=== PATIENT | male | born 1945 | race Caucasian/White ===

== ENCOUNTER 2016-12-10 18:33 | Emergency (ER) | payer MEDICARE ==
[~2016-12-10 18:33] MED LIST: /ADVA50050; /AMIO20TA; /ATOR40TA; /BISO10TA; /FENO14TA PO; /TAMS4CA; /TAMS4CA PO; /TIOT18INH; /VERA40TA; /WARF3TA; ACET50TA PO; ACET65TA; ACETAMINOPHEN; ACTO30TA; ADV500INH INH; ALB2.5NEB INH; ALBU83IN; ALBUTEROL; ALLE25CA; ALLO100T PO; ALLOPURINOL PO; AMAR1TAB PO; AMIO400T; ASPI1TAB PO; ASPI81TA PO; ASPI81TA83; ATRO0.06; BABY81CH; BISAC5TA PO; BISO10TA2; BISO5TAB54 PO; CARD2TAB; CEFT250T; CEFT500T PO; CHAN0.5P; COLA100C2; COLA50CA3 PO; COMBAER6 INH; COMBIN INH; COMBIVENT; COMBIVENT INH; COMBVENT; COUMADIN; CRES5TAB; CRES5TAB PO; Crestor PO; DIGO0.126; DRIS50002 PO; DULC10SU9 PR; DUONSOL; FERR325T; FERROUS GLUCONATE; FISH1000 PO; FURO1TAB15 PO; FURO20TA PO; GLUC1000; HUMUINJ; INSUH10VL SC; INSUHUMDS SC; INSULANT; INSULANT SC; INSULIN ASPART; IPRA2IN INH; JANTOVEN; K-TA10TA; KEFL500C7 PO; LANTUS; LASI20TA; LASI20TA PO; LASI40TA; LASI40TA PO; LASI80TA; LIDODERM 5% PATCH; LIDODERM PATCH; LISI10TA4; LISI10TA4 PO; LISI5TAB; LISI5TAB PO; LOPR50TA; LORTTAB5 PO; LOVA1CAP16 PO; Lantus Insulin SC; MAALSUS; MAG-TAB; METF500T4; MIRA255PW PO; MIRA33504 PO; MOM30SS PO; NICO21DI4; NICOTINE PATCH; NOVOLOG INSULIN SC; NOVOLOG100 MG/ML; OMEGA FISH OIL PO; OXYCODONE; PERC5TAB8; PERCOCET PO; PLAV75TA2; POTA20TA2; PRED10TA2; PRED10TA2 PO; PRED1TA; PRED20TA; PRED5TAB; PREDPOW10; PRIL20CA; PRIL20CA PO; PRIL20CA9 PO; PRIL40CA; PROCTOFOAM PR; PROS5TAB PO; Proscar PO; REST15CA; REST15CA PO; ROSU10TA PO; SENO8.6T9 PO; SIMV20TA2; Spiriva INH; TAMS0.4C2 PO; TEMA15CA2 PO; TIOT18INH INH; TRAM50TA2; TRAV04OPD OU; TRIC145T PO; Tylenol PO; VARE1TA; VICO5TAB; XANA0.25; XANA0.25 PO; ZEBE5TAB; ZEBE5TAB PO; ZEBETA; ZITH250T; ZOCO20TA; ZOLO50TA; ZOLO50TA PO; ZOLOFT; [UNRECOGNIZED DRUG - OTHER]
[2016-12-10] MEDS ORDERED: IPRATROPIUM 0.5MG/ALBUTEROL 2.5MG INH SOL UD 3ML (DUONEB)(J7620) As Ordered ONE ×3 (18:59→20:46)
[2016-12-10 19:04] LABS: BASO % 0.8 % (0.0-1.0); EOS # 0.1 K/mm3 (0.0-0.50); EOS % 1.1 % (0.0-3.0); LARGE UNSTAINED CELL # 0.1 K/mm3 (0.0-0.4); LARGE UNSTAINED CELL % 1.6 % (0.0-4.0); LYMPH # 0.9 K/mm3 (1.5-4.5); LYMPH % 11.8 % (24.0-44.0); MEAN CORPUSCULAR HEMOGLOBIN 29.2 pg (27.0-33.0); MEAN CORPUSCULAR HGB CONC 32.5 g/dl (32.0-36.5); MONO # 0.4 K/mm3 (0.0-0.8); MONO % 5.7 % (0.0-5.0); NEUTROPHILS # 5.1 K/mm3 (1.8-7.7); NEUTROPHILS % 78.9 % (36.0-66.0); PLATELET COUNT, AUTOMATED 279 k/mm3 (150-450); RED CELL DISTRIBUTION WIDTH 16.6 % (11.5-14.5); WHITE BLOOD COUNT 6.5 K/mm3 (4.0-10.0)
[2016-12-10] MEDS ORDERED: methylPREDNISolone INJ 125 MG/2 ML VIAL (J2930) As Ordered ONE (19:04)
--- NOTE | 2016-12-10 19:15 | REP ---
Portable chest x-ray: Single view: History: Shortness of breath. Comparison study 08/12/2016. Findings: There is linear pleuroparenchymal fibrosis again seen in the left midlung zone. Prior sternotomy wires are noted. The aorta is calcific as before. The heart is not enlarged. There is chronic blunting of the left lateral pleural angle. Interstitial markings are diffusely somewhat prominent unchanged. No acute infiltrate is seen. 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 Prior sternotomy. Diffusely somewhat prominent but stable pulmonary interstitial markings. No acute infiltrate. Signed by Ervin Lucio MD 12/10/2016 07:49 P
[2016-12-10] MEDS ORDERED: FUROSEMIDE 40 MG/4 ML VIAL (J1940) As Ordered ONE (19:25)
[2016-12-10 19:29] LABS: ANION GAP 10 MEQ/L (8-16); BLOOD UREA NITROGEN 36 MG/DL (7-18); CALCIUM LEVEL 9.2 MG/DL (8.8-10.2); CARBON DIOXIDE LEVEL 25 MEQ/L (21-32); CHLORIDE LEVEL 107 MEQ/L (98-107); CREATININE FOR GFR 1.59 MG/DL (0.70-1.30); GLOMERULAR FILTRATION RATE 45.7 (>42); GLUCOSE, FASTING 157 MG/DL (83-110); SODIUM LEVEL 142 MEQ/L (136-145)
--- NOTE | 2016-12-10 23:15 | EDDOCDS ---
Physician Documentation [facility] Name: Javier Cruz Age: 71 yrs Sex: Male : 1945 Arrival Date: 12/10/2016 Time: 18:33 Bed 6 Private MD: ZOEY HUTCHINSON Disposition: 12/10 22:58 Critical Care: Critical care not applicable. pc Disposition: 12/10/16 23:00 Discharged to Home/Self Care. Impression: Acute on chronic systolic (congestive) heart failure - resolved, Chronic obstructive pulmonary disease with (acute) exacerbation - resolved. - Condition is Stable. - Discharge Instructions: Chronic Obstructive Pulmonary Disease, Heart Failure. - Medication Reconciliation, Local Pharmacy Hours form. - Follow up: ZOEY HUTCHINSON; When: Tomorrow; Reason: Continuance of care. - Problem is an acute exacerbation. - Symptoms are resolved. HPI: 19:22 This 71 yrs old Male presents to ER via Wheelchair with complaints of pc Breathing Difficulty. 19:22 The history is obtained from the patient. The patient presents with shortness of pc breath, with a prior history of COPD, congestive heart failure. The symptoms began gradually 3 weeks ago, and became worse today. He has been getting more SOBOE for 3 weeks and developed chest pain at 9am this morning while walking and developed "real bad breathing". He called his PCP and made an appointment for tomorrow. He felt he couldn't wait so came to the tonight. He denies any chest pain since this morning but feels "winded" easily.He says his FSBS have running 350+ for a week, when they had normally been in the 140's. His insulin regimen was changed 3 months ago due to excessively tight control, with an A1C of 5.8. He now only takes insulin when his level is >250. At their worst, the symptoms were moderate. In the emergency department, the symptoms are mild. The patient has experienced similar episodes in the past, multiple times. He thinks he has put on 4 pounds in the past 3-4 weeks. His weight is 2.5kg more today than his clinic visit 6 weeks ago, per his EMR. Historical: - Allergies: SULFA (SULFONAMIDES); - Home Meds: 1. fenofibrate 160 mg oral tab 1 tab once daily 2. Xanax 0.25 mg Oral tab 1 tab 3 times per day 3. albuterol sulfate 2.5 mg /3 mL (0.083 %) Inhl nebu 3 mL 3 times per day 4. Atrovent 18 mcg/actuation Inhl aero four times a day 5. Fish Oil 1,000 mg Oral cap 2 cap daily 6. docusate sodium 100 mg Oral cap 1 cap 2 times per day 7. latanoprost 0.005 % ophthalmic drop 1 drop once daily 8. Flomax 0.4 mg Oral cp24 1 cap once daily 9. Advair Diskus 500-50 mcg/dose Inhl dsdv 1 puff 2 times per day 10. Combivent 18-103 mcg/actuation Inhl aero 2 puffs 4 times per day 11. Lasix 40 mg Oral tab 1 tab once daily 12. gentamicin 0.1 % Topical crea 3 times per day 13. Humalog 100 unit/mL Sub-Q soln 6 unit sliding scale 14. Zebeta 5 mg oral tab 1 tab once daily 15. omeprazole 20 mg oral cpDR 1 cap once daily 16. Zoloft 50 mg Oral tab 1 tab once daily 17. Lantus 100 unit/mL Sub-Q soln 27 unit daily 18. lisinopril 10 mg Oral tab 1 tab twice a day 19. Proscar 5 mg Oral tab 1 tab once daily 20. Crestor 10 mg Oral tab 1 tab once daily 21. Drisdol 50,000 unit Oral cap 1 cap once daily 22. Tylenol 325 mg Oral tab 2 tabs every 4-6 hours - PMHx: Anxiety; BPH; COPD; Depression; Diabetes - IDDM: uncontrolled; ESRD 3; GERD; Hypercholesterolemia; Hypertension; PVD; - PSHx: 5 vessel CABG 2008; fem/pop bypass right leg; - The history from nurses notes was reviewed: and I agree with what is documented. - Social history: Smoking status: Patient states former smoker of tobacco. No barriers to communication noted, The patient speaks fluent Azeri, Speaks appropriately for age. - Family history: Not pertinent, No immediate family members are acutely ill. - : The pt / caregiver states he / she is not on anticoagulants. Home medication list is obtained from the patient. - Hospitalizations: : No recent hospitalization is reported. - Exposure Risk Screening:: None identified. - Immunization history:: All immunizations up-to-date. - Social history:: the patient is a former smoker, the patient does not drink alcohol. ROS: 19:22 All systems are negative except as listed. The gastrointestinal and genitourinary pc components are also addressed in the HPI. Exam: 19:22 General Appearance: no acute distress, alert. pc 19:22 EENT: normal eye inspection, ears, nose and throat normal, pharynx normal, mucous membranes moist 19:22 Neck: normal inspection. 19:22 Respiratory: no respiratory distress, no pleuritic chest pain, speaks in full sentences, auscultation reveals rhonchi, rales, diffusely. 19:22 Cardiovascular: normal heart rate, normal rhythm, no jugular venous distension appreciated, no murmurs, no gallop, no friction rub, peripheral pulses full and equal bilaterally. 19:22 Abdomen: non-tender, non-distended, no organomegaly, no ascites. 19:22 Skin: normal color, warm, dry. 19:22 Extremities: non-tender, normal range of motion of all joints, no pedal edema. 19:22 Neuro: alert, oriented to person, place and time, cranial nerves normal as tested, no motor deficits, no sensory deficits. 19:22 Psych: normal mood. Vital Signs: 18:35 BP 192 / 89; Pulse 94; Resp 16 S; Pulse Ox 96% on R/A; Weight 70.76 kg / 156 lbs (R); gr2 Height 5 ft. 7 in. (170.18 cm) (R); Pain 3/10; 18:41 Temp 97.5(O); ck1 19:16 Weight 73.94 kg / 163.01 lbs (M); kb5 19:26 BP 166 / 73 (auto/); mlc 19:26 Pulse 62 MON; Pulse Ox 94% ; mlc 19:38 Pulse 62 MON; Pulse Ox 97% ; mlc 19:41 BP 182 / 79 (auto/); mlc 19:42 Pulse 66 MON; Pulse Ox 93% ; mlc 19:56 BP 177 / 77 (auto/); mlc 19:57 Pulse 60 MON; Pulse Ox 97% ; mlc 20:11 BP 171 / 70 (auto/); mlc 20:12 Pulse 72 MON; Pulse Ox 96% ; mlc 20:26 BP 173 / 77 (auto/); mlc 20:27 Pulse 80 MON; Pulse Ox 95% ; mlc 20:41 BP 175 / 73 (auto/); mlc 20:42 Pulse 76 MON; Pulse Ox 96% ; mlc 20:56 BP 190 / 77 (auto/); mlc 20:57 Pulse 66 MON; Pulse Ox 94% ; mlc 21:11 BP 170 / 74 (auto/); mlc 21:12 Pulse 68 MON; Pulse Ox 94% ; mlc 21:26 BP 175 / 74 (auto/); mlc 21:27 Pulse 74 MON; Pulse Ox 93% ; mlc 21:41 BP 180 / 74 (auto/); mlc 21:42 Pulse 78 MON; Pulse Ox 93% ; mlc 21:56 BP 181 / 72 (auto/); mlc 21:57 Pulse 78 MON; Pulse Ox 92% ; mlc 22:07 Pulse 78 MON; Pulse Ox 92% ; mlc 22:12 BP 183 / 78 (auto/); mlc 22:26 BP 158 / 85 (auto/); mlc 22:26 Pulse 88 MON; Pulse Ox 90% ; mlc 22:41 BP 168 / 72 (auto/); mlc 22:42 Pulse 84 MON; Pulse Ox 91% ; mlc 23:13 BP 166 / 71; Pulse 82; Resp 18; Temp 97.8; Pulse Ox 96% ; Pain 0/10; mlc 19:16 Body Mass Index 25.53 (73.94 kg, 170.18 cm) kb5 18:35 TEMP NEEDS TO BE TAKEN gr2 MDM: 18:38 -Blood Culture (Adults Only), peripheral from different site, or from device/port/PICC fg etc. if present ordered. 18:38 Call Respiratory ordered. fg 18:38 Band Singer/Pulse Ox/q 15 min VS ordered. fg 18:38 IV Saline Lock ordered. fg 18:38 Oxygen at 4L/Min NC or Home dosage ordered. fg 18:38 Rhythm Strip to chart ordered. fg 18:39 -Blood Culture Ordered. EDMS 18:39 B-Type Natiuretic Peptide Ordered. EDMS 18:39 Basic Metabolic Profile Ordered. EDMS 18:39 CBC with Diff Ordered. EDMS 18:39 Chest, 1 View Ordered. EDMS 18:40 ECG WITH READING ER PHYS+CARDIAG ordered. EDMS 18:40 ECG WITH READING ER PHYS+CARDIAG ordered. EDMS 18:40 -Blood Culture (Adults Only), peripheral from different site, or from device/port/PICC lbd etc. if present complete. 18:41 Call Respiratory complete. lbd 18:44 BLOOD CULTURES Ordered. EDMS 18:57 Solu-MEDROL 125 mg IVP once ordered. fg 18:57 Albuterol-Ipratropium 3 ml Inhalation once ordered. fg 19:05 Weigh Pt on scale, in Kg (Do Not Use Reported Weight) ordered. pc 19:10 CARDIAC MARKER PANEL Ordered. EDMS 19:22 Furosemide 40 mg IVP once ordered. pc 19:22 Intake and Output Hourly ordered. pc 19:22 Differential diagnosis: CHF, Chronic Obstructive Pulmonary Disease Unstable Angina. pc Plan: labs, EKG, CXR, meds. 19:31 Test interpretation: EKG. pc 20:08 B-Type Natiuretic Peptide Reviewed. pc 20:08 Basic Metabolic Profile Reviewed. pc 20:08 CBC with Diff Reviewed. pc 20:08 CARDIAC MARKER PANEL Reviewed. pc 20:08 Albuterol-Ipratropium 1 neb Nebulizer every 20 minutes x3 ordered. pc 20:08 Call Respiratory ordered. pc 20:09 Call Respiratory complete. mlc 21:02 Financial registration complete. zo 21:09 [facility] Payment Agreement was scanned into [employer]! and attached to record. zo 21:49 Ambulate Patient wt Pulse Oximetry ordered. pc 22:58 Data reviewed: old medical records, vital signs, nurses notes, EKG(s), lab test pc results, all radiology studies and available results. Test interpretation: LAB - all labs as ordered have been reviewed, interpreted and considered in the overall management of the clinical presentation; X-RAY - interpreted by Radiologist and personally reviewed, 1 view chest chronic changes. The patient has been re-examined and re-evaluated. The patient's symptoms have markedly improved after treatment, He is laying flat, requesting discharge home. He has diuresed over a liter, his PO is 93% on RA at rest and stay above 89% while ambulating. Disposition: The historical points, examination findings, and any diagnostic results supporting the provided diagnosis, were discussed with the patient or legal guardian. The need for outpatient follow up with the provider listed on their discharge instructions was discussed. They were encouraged to return to [facility], or the nearest ED, if symptoms worsen/persist, or for any other questions/concerns. EC:31 Rate is 64 beats/min. Rhythm is regular, Normal Sinus Rhythm. QRS Lysite is Normal. IA pc interval is prolonged at 303 msec. QRS interval is normal. QT interval is normal. No Q waves. T waves are Normal. No ST changes noted. Clinical impression: Normal Sinus Rhythm and 1st degree heart block. No change from previous ECG in July,. Administered Medications: 19:01 Drug: Albuterol-Ipratropium 3 ml [ipratropium-albuterol 0.5 mg-3 mg(2.5 mg base)/3 mL ac1 nebulization soln (3 mL)] Route: Inhalation; 19:04 Follow up: bs-bilat end exp whz ac1 19:11 Drug: Solu-MEDROL 125 mg [Solu-Medrol 500 mg intravenous solution (125 mg)] Route: IVP; mlc Site: left hand; 19:39 Drug: Furosemide 40 mg [furosemide 10 mg/mL injection solution (4 mL)] Route: IVP; mlc Site: left hand; 20:14 Drug: Albuterol-Ipratropium 1 neb [ipratropium-albuterol 0.5 mg-3 mg(2.5 mg base)/3 mL jh6 nebulization soln (1 neb)] Route: Nebulizer; 20:36 Drug: Albuterol-Ipratropium 1 neb [ipratropium-albuterol 0.5 mg-3 mg(2.5 mg base)/3 mL jh6 nebulization soln (1 neb)] Route: Nebulizer; 20:56 Drug: Albuterol-Ipratropium 1 neb [ipratropium-albuterol 0.5 mg-3 mg(2.5 mg base)/3 mL jh6 nebulization soln (1 neb)] Route: Nebulizer; Signatures: Dispatcher [employer] EDMS Wyatt Grubbs MD MD pc Daly, Linda, Neonatologist Unit lbd Josh Benites Joshua, RN RN jmb Booth, Mandy, RN RN mlc Gill, Frances, MD MD fg Cowles, Amy RT 1 Oneil Conner 6 The chart was reviewed and I authenticate all verbal orders and agree with the evaluation and treatment provided.Corrections: (The following items were deleted from the chart) 19:10 19:05 CARDIAC INJURY PROFILE+LAB ordered. EDMS EDMS 19:10 19:05 TROPONIN+LAB ordered. EDMS EDMS Attachments: 21:09 [facility] Payment Agreement zo [email or web address]
--- NOTE | 2016-12-10 23:15 | EDDOCDS ---
Nurse's Notes [facility] Name: Javier Cruz Age: 71 yrs Sex: Male : 1945 Arrival Date: 12/10/2016 Time: 18:33 Bed 6 Private MD: ZOEY HUTCHINSON Diagnosis: Acute on chronic systolic (congestive) heart failure-resolved;Chronic obstructive pulmonary disease with (acute) exacerbation-resolved Presentation: 12/10 18:37 Presenting complaint: Patient states: Patient reports inability to breath. Symptoms jmb present for 3-4 weeks but worse tonight. Adult Sepsis Screening: The patient does not have new or worsening altered mentation. Patient's respiratory rate is less than 22. Systolic blood pressure is greater than 100. Patient has a qSOFA score of 0- Negative Sepsis Screen. Suicide/Homicide risk assessment- the patient denies having any suicidal and/or homicidal ideations and does not present with any other emotional, behavioral or mental health complaints. 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 Transition of care: patient was not received from another setting of care. 18:37 Acuity: TAMEKA Level 3 jmb 18:37 Method Of Arrival: Wheelchair b Triage Assessment: 18:45 General: Appears uncomfortable, Behavior is appropriate for age, cooperative. Pain: jmb Denies pain. Neurological: Level of Consciousness is awake, alert, obeys commands, Oriented to person, place, time, Speech is normal, Facial symmetry appears normal. Respiratory: Onset: The symptoms/episode began/occurred gradually, Airway is patent Respiratory effort is even, labored, Respiratory pattern is regular. GI: No deficits noted. Derm: Skin is pink, warm & dry. Musculoskeletal: Range of motion intact in all extremities. Historical: - Allergies: SULFA (SULFONAMIDES); - Home Meds: 1. fenofibrate 160 mg oral tab 1 tab once daily 2. Xanax 0.25 mg Oral tab 1 tab 3 times per day 3. albuterol sulfate 2.5 mg /3 mL (0.083 %) Inhl nebu 3 mL 3 times per day 4. Atrovent 18 mcg/actuation Inhl aero four times a day 5. Fish Oil 1,000 mg Oral cap 2 cap daily 6. docusate sodium 100 mg Oral cap 1 cap 2 times per day 7. latanoprost 0.005 % ophthalmic drop 1 drop once daily 8. Flomax 0.4 mg Oral cp24 1 cap once daily 9. Advair Diskus 500-50 mcg/dose Inhl dsdv 1 puff 2 times per day 10. Combivent 18-103 mcg/actuation Inhl aero 2 puffs 4 times per day 11. Lasix 40 mg Oral tab 1 tab once daily 12. gentamicin 0.1 % Topical crea 3 times per day 13. Humalog 100 unit/mL Sub-Q soln 6 unit sliding scale 14. Zebeta 5 mg oral tab 1 tab once daily 15. omeprazole 20 mg oral cpDR 1 cap once daily 16. Zoloft 50 mg Oral tab 1 tab once daily 17. Lantus 100 unit/mL Sub-Q soln 27 unit daily 18. lisinopril 10 mg Oral tab 1 tab twice a day 19. Proscar 5 mg Oral tab 1 tab once daily 20. Crestor 10 mg Oral tab 1 tab once daily 21. Drisdol 50,000 unit Oral cap 1 cap once daily 22. Tylenol 325 mg Oral tab 2 tabs every 4-6 hours - PMHx: Anxiety; BPH; COPD; Depression; Diabetes - IDDM: uncontrolled; ESRD 3; GERD; Hypercholesterolemia; Hypertension; PVD; - PSHx: 5 vessel CABG 2008; fem/pop bypass right leg; - The history from nurses notes was reviewed: and I agree with what is documented. - Social history: Smoking status: Patient states former smoker of tobacco. No barriers to communication noted, The patient speaks fluent Luxembourgish, Speaks appropriately for age. - Family history: Not pertinent, No immediate family members are acutely ill. - : The pt / caregiver states he / she is not on anticoagulants. Home medication list is obtained from the patient. - Hospitalizations: : No recent hospitalization is reported. - Exposure Risk Screening:: None identified. - Immunization history:: All immunizations up-to-date. - Social history:: the patient is a former smoker, the patient does not drink alcohol. Screenin:55 Screening information is obtained from the patient. Fall risk: At risk due to weakness. ck1 The following interventions are performed due to a positive Fall Risk Screen: Fall Risk is added to Special Handling on the patient Summary Screen. A Fall Risk Bracelet was applied to the patient. Side Rails are placed in the up position. A Call Fair is given with instruction to call for help when getting out of bed. Fall Alert bracelet is placed on the patient. Abuse/DV Screen: The patient / caregiver reports he/she is: not in a situation that causes fear, pain or injury. Nutritional screening: No deficits noted. home support is adequate. 23:13 Assistance ADL's: requires no assistance with activities of daily living. Advance mlc Directives: There is no active DNR order. Assessment: 18:55 General: Appears ill, Behavior is appropriate for age, cooperative. Pain: Denies pain. ck1 Cardiovascular: Chest pain is denied. Respiratory: Respiratory effort is labored, Respiratory pattern is symmetrical, Breath sounds are diminished bilaterally. Derm: Skin is intact, Skin is pink, warm & dry. 19:12 General: Appears in no apparent distress, comfortable, Behavior is cooperative, mlc pleasant. Pain: Denies pain. Neurological: Level of Consciousness is awake, alert, obeys commands, Oriented to person, place, time. Cardiovascular: Heart tones S1 S2 present Rhythm is sinus rhythm No ectopy. Chest pain is denied. Respiratory: Airway is patent Respiratory effort is even, labored, Respiratory pattern is regular, Breath sounds with wheezes expiratory bilaterally. Derm: Skin is pink, warm & dry. 19:39 Reassessment: Patient appears in no apparent distress at this time. pt medicated per mlc order. 21:08 Reassessment: Patient appears in no apparent distress at this time. Patient denies pain mlc at this time. pt resting comfortably in bed, resp easy/unlabored. . 21:46 Reassessment: Patient appears in no apparent distress at this time. Patient denies pain mlc at this time. pt given water per Dr. Grubbs. resp easy/unlabored. . 22:13 Reassessment: pt ambulated down bains, tolerated well. pt denies feeling SOB. SPO2 mlc remained about 88%. pulse increased to 95. 23:12 General: Appears in no apparent distress, comfortable, Behavior is cooperative. Pain: mlc Denies pain. Neurological: Level of Consciousness is awake, alert, Oriented to person, place, time. Respiratory: Airway is patent Respiratory effort is even, unlabored, Respiratory pattern is regular. Vital Signs: 18:35 BP 192 / 89; Pulse 94; Resp 16 S; Pulse Ox 96% on R/A; Weight 70.76 kg (R); Height 5 gr2 ft. 7 in. (170.18 cm) (R); Pain 3/10; 18:41 Temp 97.5(O); ck1 19:16 Weight 73.94 kg (M); kb5 19:26 BP 166 / 73 (auto/); mlc 19:26 Pulse 62 MON; Pulse Ox 94% ; mlc 19:38 Pulse 62 MON; Pulse Ox 97% ; mlc 19:41 BP 182 / 79 (auto/); mlc 19:42 Pulse 66 MON; Pulse Ox 93% ; mlc 19:56 BP 177 / 77 (auto/); mlc 19:57 Pulse 60 MON; Pulse Ox 97% ; mlc 20:11 BP 171 / 70 (auto/); mlc 20:12 Pulse 72 MON; Pulse Ox 96% ; mlc 20:26 BP 173 / 77 (auto/); mlc 20:27 Pulse 80 MON; Pulse Ox 95% ; mlc 20:41 BP 175 / 73 (auto/); mlc 20:42 Pulse 76 MON; Pulse Ox 96% ; mlc 20:56 BP 190 / 77 (auto/); mlc 20:57 Pulse 66 MON; Pulse Ox 94% ; mlc 21:11 BP 170 / 74 (auto/); mlc 21:12 Pulse 68 MON; Pulse Ox 94% ; mlc 21:26 BP 175 / 74 (auto/); mlc 21:27 Pulse 74 MON; Pulse Ox 93% ; mlc 21:41 BP 180 / 74 (auto/); mlc 21:42 Pulse 78 MON; Pulse Ox 93% ; mlc 21:56 BP 181 / 72 (auto/); mlc 21:57 Pulse 78 MON; Pulse Ox 92% ; mlc 22:07 Pulse 78 MON; Pulse Ox 92% ; mlc 22:12 BP 183 / 78 (auto/); mlc 22:26 BP 158 / 85 (auto/); mlc 22:26 Pulse 88 MON; Pulse Ox 90% ; mlc 22:41 BP 168 / 72 (auto/); mlc 22:42 Pulse 84 MON; Pulse Ox 91% ; mlc 23:13 BP 166 / 71; Pulse 82; Resp 18; Temp 97.8; Pulse Ox 96% ; Pain 0/10; mlc 19:16 Body Mass Index 25.53 (73.94 kg, 170.18 cm) kb5 18:35 TEMP NEEDS TO BE TAKEN gr2 Vitals: 18:35 Log In Time: December 10, 2016 at 18:35. RN notified that patient meets Red Flag gr2 criteria. ED Course: 18:34 Patient visited by Andrew Guillen. gr2 18:34 Patient moved to Waiting gr2 18:35 ZOEY HUTCHINSON is Private Physician. gr2 18:36 Patient visited by Andrew Guillen. gr2 18:36 Patient moved to Pre RCE gr2 18:36 Patient moved to 6 rs6 18:38 Triage Initiated jmb 18:46 Pt greeted and oriented to ED. Patient advised of names of staff involved in care, rs6 location of call fair, wait times and NPO status. Accompanied by Family Member, Patient has correct armband on for positive identification. Placed in gown. Bed in low position. Call light in reach. Side rails up X 1. insurance risk surveyor on. Pulse ox on. NIBP on. 18:46 EKG done. (by ED staff). Reviewed by Lali Simental MD. rs6 18:47 Patient visited by Rose Brown PCA. rs6 18:47 B-Type Natiuretic Peptide Sent. rs6 18:54 Inserted saline lock: 20 gauge in left hand and blood collected. The patient tolerated ck1 the procedure well. 19:00 CBC with Diff Sent. mlc 19:00 Basic Metabolic Profile Sent. mlc 19:00 -Blood Culture Sent. mlc 19:01 Leslie Lorenzo,RN is Primary Nurse. mlc 19:02 Wyatt Grubbs MD is Attending Physician. pc 19:11 CARDIAC MARKER PANEL Sent. mlc 19:12 The patient / caregiver is instructed regarding the plan of care and ED course. mlc 19:12 O2 via nasal cannula \T\ 2L/min. mlc 19:13 Patient visited by Wyatt Grubbs MD. pc 19:13 Patient visited by Leslie Lorenzo,LUIS MIGUEL. mlc 19:39 BLOOD CULTURES Sent. mlc 19:40 Patient visited by Leslie Lorenzo,LUIS MIGUEL. mlc 20:12 Chest, 1 View Returned. EDMS 20:34 Patient visited by Abundio Guan, SIOBHAN. kb5 21:09 Patient visited by Leslie Lorenzo,RN. mlc 21:09 [facility] Payment Agreement was scanned into enavu and attached to record. zo 21:23 Patient visited by Abundio Guan PCA. kb5 21:46 Patient visited by Leslie Lorenzo,LUIS MIGUEL. mlc 22:14 Patient visited by Leslie Lorenzo RN. mlc 23:00 ZOEY HUTCHINSON is Referral Physician. pc 23:05 Patient visited by Abundio Guan PCA. kb5 23:13 Discontinued IV lock intact, bleeding controlled, pressure dressing applied, No mlc redness/swelling at site. No procedures done that require assistance. Administered Medications: 19:01 Drug: Albuterol-Ipratropium 3 ml [ipratropium-albuterol 0.5 mg-3 mg(2.5 mg base)/3 mL ac1 nebulization soln (3 mL)] Route: Inhalation; 19:04 Follow up: bs-bilat end exp whz ac1 19:11 Drug: Solu-MEDROL 125 mg [Solu-Medrol 500 mg intravenous solution (125 mg)] Route: IVP; mlc Site: left hand; 19:39 Drug: Furosemide 40 mg [furosemide 10 mg/mL injection solution (4 mL)] Route: IVP; mlc Site: left hand; 20:14 Drug: Albuterol-Ipratropium 1 neb [ipratropium-albuterol 0.5 mg-3 mg(2.5 mg base)/3 mL jh6 nebulization soln (1 neb)] Route: Nebulizer; 20:36 Drug: Albuterol-Ipratropium 1 neb [ipratropium-albuterol 0.5 mg-3 mg(2.5 mg base)/3 mL jh6 nebulization soln (1 neb)] Route: Nebulizer; 20:56 Drug: Albuterol-Ipratropium 1 neb [ipratropium-albuterol 0.5 mg-3 mg(2.5 mg base)/3 mL jh6 nebulization soln (1 neb)] Route: Nebulizer; Intake: Output: 21:08 Urine: 650.00ml (Voided); Total: 650.00ml. mlc 21:46 Urine: 375.00ml (Voided); Total: 1025.00ml. [facility] RT: 19:02 Initial Med Neb Given as ordered Patient was instructed and evaluated on procedure. ac1 Respiratory: Breath sounds with wheezes bilaterally. at expiration. 20:14 Subsequent Med Neb Given as ordered Patient was reinforced on procedure Patient jh6 tolerated procedure well without adverse effect. Respiratory: Airway is patent Respiratory effort is even, unlabored, Respiratory pattern is regular symmetrical, Breath sounds with rhonchi in right upper lobe, left upper lobe, right middle lobe, left lower lobe and right lower lobe Breath sounds with wheezes in right upper lobe, left upper lobe, right middle lobe, left lower lobe and right lower lobe at expiration Reports some shortness of breath. 20:25 Respiratory: Airway is patent Respiratory effort is even, unlabored, Respiratory 6 pattern is regular symmetrical, Breath sounds with wheezes in right upper lobe, left upper lobe, right middle lobe, left lower lobe and right lower lobe at expiration. 20:36 Subsequent Med Neb Given as ordered Patient was reinforced on procedure Patient jh6 tolerated procedure well without adverse effect. Respiratory: Airway is patent Respiratory effort is even, unlabored, Respiratory pattern is regular symmetrical, Breath sounds with rhonchi in right upper lobe, left upper lobe and right middle lobe Breath sounds are diminished in right upper lobe, left upper lobe, right middle lobe, left lower lobe and right lower lobe Reports. 20:59 Subsequent Med Neb Given as ordered Patient was reinforced on procedure Patient jh6 tolerated procedure well without adverse effect. Respiratory: Airway is patent Respiratory effort is even, unlabored, Respiratory pattern is regular symmetrical, Breath sounds are diminished in right upper lobe, left upper lobe, right middle lobe, left lower lobe and right lower lobe Breath sounds with wheezes in right upper lobe, left upper lobe, right middle lobe, left lower lobe and right lower lobe at expiration. 21:06 Respiratory: Airway is patent Respiratory effort is even, unlabored, Respiratory 6 pattern is regular symmetrical, Breath sounds with wheezes in right upper lobe, left upper lobe, right middle lobe, left lower lobe and right lower lobe at expiration. Order Results: Lab Order: B-Type Natiuretic Peptide; SPEC'M 12/10/16 18:51 Test: BRAIN NATRIURETIC PEPTIDE; Value: 146; Range: <100; Abnormal: Above high normal; Units: PG/ML; Status: F Lab Order: Basic Metabolic Profile; SPEC'M 12/10/16 18:51 Test: GLUCOSE, FASTING; Value: 157; Range: 83-110; Abnormal: Above high normal; Units: MG/DL; Status: F Test: BLOOD UREA NITROGEN; Value: 36; Range: 7-18; Abnormal: Above high normal; Units: MG/DL; Status: F Test: CREATININE FOR GFR; Value: 1.59; Range: 0.70-1.30; Abnormal: Above high normal; Units: MG/DL; Status: F Test: GLOMERULAR FILTRATION RATE; Value: 45.7; Range: >42; Status: F Test: SODIUM LEVEL; Value: 142; Range: 136-145; Units: MEQ/L; Status: F Test: POTASSIUM SERUM; Value: 4.0; Range: 3.5-5.1; Units: MEQ/L; Status: F Test: CHLORIDE LEVEL; Value: 107; Range: 98-107; Units: MEQ/L; Status: F Test: CARBON DIOXIDE LEVEL; Value: 25; Range: 21-32; Units: MEQ/L; Status: F Test: ANION GAP; Value: 10; Range: 8-16; Units: MEQ/L; Status: F Test: CALCIUM LEVEL; Value: 9.2; Range: 8.8-10.2; Units: MG/DL; Status: F Test Note: ; Units are mL/min/1.73 m2 Chronic Kidney Disease Staging per NKF: Stage I & II GFR >=60 Normal to Mildly Decreased Stage III GFR 30-59 Moderately Decreased Stage IV GFR 15-29 Severely Decreased Stage V GFR <15 Very Little GFR Left ESRD GFR <15 on SUPPORT CLERK Lab Order: CBC with Diff; SPEC'M 12/10/16 18:51 Test: WHITE BLOOD COUNT; Value: 6.5; Range: 4.0-10.0; Units: K/mm3; Status: F Test: RED BLOOD COUNT; Value: 3.96; Range: 4.30-6.10; Abnormal: Below low normal; Units: M/mm3; Status: F Test: HEMOGLOBIN; Value: 11.6; Range: 14.0-18.0; Abnormal: Below low normal; Units: g/dl; Status: F Test: HEMATOCRIT; Value: 35.7; Range: 42.0-52.0; Abnormal: Below low normal; Units: %; Status: F Test: MEAN CORPUSCULAR VOLUME; Value: 90.0; Range: 80.0-96.0; Units: fl; Status: F Test: MEAN CORPUSCULAR HEMOGLOBIN; Value: 29.2; Range: 27.0-33.0; Units: pg; Status: F Test: MEAN CORPUSCULAR HGB CONC; Value: 32.5; Range: 32.0-36.5; Units: g/dl; Status: F Test: RED CELL DISTRIBUTION WIDTH; Value: 16.6; Range: 11.5-14.5; Abnormal: Above high normal; Units: %; Status: F Test: PLATELET COUNT, AUTOMATED; Value: 279; Range: 150-450; Units: k/mm3; Status: F Test: NEUTROPHILS %; Value: 78.9; Range: 36.0-66.0; Abnormal: Above high normal; Units: %; Status: F Test: LYMPH %; Value: 11.8; Range: 24.0-44.0; Abnormal: Below low normal; Units: %; Status: F Test: MONO %; Value: 5.7; Range: 0.0-5.0; Abnormal: Above high normal; Units: %; Status: F Test: EOS %; Value: 1.1; Range: 0.0-3.0; Units: %; Status: F Test: BASO %; Value: 0.8; Range: 0.0-1.0; Units: %; Status: F Test: LARGE UNSTAINED CELL %; Value: 1.6; Range: 0.0-4.0; Units: %; Status: F Test: NEUTROPHILS #; Value: 5.1; Range: 1.8-7.7; Units: K/mm3; Status: F Test: LYMPH #; Value: 0.9; Range: 1.5-4.5; Abnormal: Below low normal; Units: K/mm3; Status: F Test: MONO #; Value: 0.4; Range: 0.0-0.8; Units: K/mm3; Status: F Test: EOS #; Value: 0.1; Range: 0.0-0.50; Units: K/mm3; Status: F Test: BASO #; Value: 0.0; Range: 0.0-0.2; Units: K/mm3; Status: F Test: LARGE UNSTAINED CELL #; Value: 0.1; Range: 0.0-0.4; Units: K/mm3; Status: F Lab Order: CARDIAC MARKER PANEL; SPEC'M 12/10/16 18:51 Test: CPK CREATINE PHOSPHOKINASE; Value: 120; Range: 39-308; Units: U/L; Status: F Test: CK-MB VALUE MASS; Value: 3.2; Range: 0.0-3.6; Units: NG/ML; Status: F Test: MB/CK RELATIVE INDEX; Value: 2.66; Range: < OR =4; Status: F Test: TROPONIN I; Value: < 0.02; Range: < 0.10; Units: NG/ML; Status: F Test Note: ; DIAGNOSIS CRITERIA MMB ng/ml Relative Index (RI) NON-AMI < or = 5 N/A COMER ZONE > 5 < or = 4 AMI > 5 > 4 Radiology Order: Chest, 1 View Test: Chest, 1 View REASON FOR EXAMINATION: Shortness of Breath; Portable chest x-ray: Single view:; ; History: Shortness of breath.; ; Comparison study 08/12/2016.; ; Findings: There is linear pleuroparenchymal fibrosis again seen in the left; midlung zone. Prior sternotomy wires are noted. The aorta is calcific as; before. The heart is not enlarged. There is chronic blunting of the left; lateral pleural angle. Interstitial markings are diffusely somewhat prominent; unchanged. 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 Prior sternotomy.; Diffusely somewhat prominent but stable pulmonary interstitial markings. No; acute infiltrate.; ; ; Signed by; Ervin Lucio MD 12/10/2016 07:49 P; Outcome: 23:00 Discharge ordered by Provider. pc 23:13 Discharge Assessment: Patient awake, alert and oriented x 3. No cognitive and/or mlc functional deficits noted. Patient verbalized understanding of disposition instructions. patient administered narcotics - no. The following High Risk Discharge criteria are identified: None. Discharged to home via wheelchair, with family. Condition: good Condition: stable. Discharge instructions given to patient, Instructed on discharge instructions, follow up and referral plans. Demonstrated understanding of instructions, Pt was receptive of discharge instructions/ teaching. No special radiology studies were completed. Property sent home with patient. 23:14 Patient left the ED. [facility] Signatures: Dispatcher [employer] EDMS Wyatt Grubbs MD MD pc Frank,Charleen,RT RT ac1 Karla McintyreRN RN ck1 Josh Benites Kristopher, SQL BI DEVELOPER SQL BI DEVELOPER kb5 Oneil Conner jh6 Andrew Guillen gr2 Ryan Cortés RN RN mohitb Leslie Lorenzo RN RN mlc Schmitt, Rebecca, SQL BI DEVELOPER SQL BI DEVELOPER rs6 MTDD
--- NOTE | 2016-12-11 07:25 | ECGEPIP ---
Stationary ECG Study [facility] - ED Test Date: 2016-12-10 Pat Name: FATMATA GIL Department: Room: - Gender: M Caddie: : 1945 Requested By: ALBAN Gonzalez Order Number: [id number] Reading MD: Jolly Simpson Measurements Intervals [place] Rate: 64 P: 66 CT: 303 QRS: 13 QRSD: 92 T: 37 QT: 411 QTc: 424 Interpretive Statements SINUS RHYTHM WITH FIRST DEGREE AV BLOCK INCREASED RATE 07/23/16 Electronically Signed On 12-11-2016 7:25:06 EST by Jolly Simpson
--- NOTE | 2016-12-13 00:16 | EDDOCDS ---
Physician Documentation [facility] Name: Javier Cruz Age: 71 yrs Sex: Male : 1945 Arrival Date: 12/10/2016 Time: 18:33 Bed 6 Private MD: ZOEY HUTCHINSON Disposition: 12/10 22:58 Critical Care: Critical care not applicable. pc Disposition: 12/10/16 23:00 Discharged to Home/Self Care. Impression: Acute on chronic systolic (congestive) heart failure - resolved, Chronic obstructive pulmonary disease with (acute) exacerbation - resolved. - Condition is Stable. - Discharge Instructions: Chronic Obstructive Pulmonary Disease, Heart Failure. - Medication Reconciliation, Local Pharmacy Hours form. - Follow up: ZOEY HUTCHINSON; When: Tomorrow; Reason: Continuance of care. - Problem is an acute exacerbation. - Symptoms are resolved. HPI: 19:22 This 71 yrs old Male presents to ER via Wheelchair with complaints of pc Breathing Difficulty. 19:22 The history is obtained from the patient. The patient presents with shortness of pc breath, with a prior history of COPD, congestive heart failure. The symptoms began gradually 3 weeks ago, and became worse today. He has been getting more SOBOE for 3 weeks and developed chest pain at 9am this morning while walking and developed "real bad breathing". He called his PCP and made an appointment for tomorrow. He felt he couldn't wait so came to the tonight. He denies any chest pain since this morning but feels "winded" easily.He says his FSBS have running 350+ for a week, when they had normally been in the 140's. His insulin regimen was changed 3 months ago due to excessively tight control, with an A1C of 5.8. He now only takes insulin when his level is >250. At their worst, the symptoms were moderate. In the emergency department, the symptoms are mild. The patient has experienced similar episodes in the past, multiple times. He thinks he has put on 4 pounds in the past 3-4 weeks. His weight is 2.5kg more today than his clinic visit 6 weeks ago, per his EMR. Historical: - Allergies: SULFA (SULFONAMIDES); - Home Meds: 1. fenofibrate 160 mg oral tab 1 tab once daily 2. Xanax 0.25 mg Oral tab 1 tab 3 times per day 3. albuterol sulfate 2.5 mg /3 mL (0.083 %) Inhl nebu 3 mL 3 times per day 4. Atrovent 18 mcg/actuation Inhl aero four times a day 5. Fish Oil 1,000 mg Oral cap 2 cap daily 6. docusate sodium 100 mg Oral cap 1 cap 2 times per day 7. latanoprost 0.005 % ophthalmic drop 1 drop once daily 8. Flomax 0.4 mg Oral cp24 1 cap once daily 9. Advair Diskus 500-50 mcg/dose Inhl dsdv 1 puff 2 times per day 10. Combivent 18-103 mcg/actuation Inhl aero 2 puffs 4 times per day 11. Lasix 40 mg Oral tab 1 tab once daily 12. gentamicin 0.1 % Topical crea 3 times per day 13. Humalog 100 unit/mL Sub-Q soln 6 unit sliding scale 14. Zebeta 5 mg oral tab 1 tab once daily 15. omeprazole 20 mg oral cpDR 1 cap once daily 16. Zoloft 50 mg Oral tab 1 tab once daily 17. Lantus 100 unit/mL Sub-Q soln 27 unit daily 18. lisinopril 10 mg Oral tab 1 tab twice a day 19. Proscar 5 mg Oral tab 1 tab once daily 20. Crestor 10 mg Oral tab 1 tab once daily 21. Drisdol 50,000 unit Oral cap 1 cap once daily 22. Tylenol 325 mg Oral tab 2 tabs every 4-6 hours - PMHx: Anxiety; BPH; COPD; Depression; Diabetes - IDDM: uncontrolled; ESRD 3; GERD; Hypercholesterolemia; Hypertension; PVD; - PSHx: 5 vessel CABG 2008; fem/pop bypass right leg; - The history from nurses notes was reviewed: and I agree with what is documented. - Social history: Smoking status: Patient states former smoker of tobacco. No barriers to communication noted, The patient speaks fluent [place], Speaks appropriately for age. - Family history: Not pertinent, No immediate family members are acutely ill. - : The pt / caregiver states he / she is not on anticoagulants. Home medication list is obtained from the patient. - Hospitalizations: : No recent hospitalization is reported. - Exposure Risk Screening:: None identified. - Immunization history:: All immunizations up-to-date. - Social history:: the patient is a former smoker, the patient does not drink alcohol. ROS: 19:22 All systems are negative except as listed. The gastrointestinal and genitourinary pc components are also addressed in the HPI. Exam: 19:22 General Appearance: no acute distress, alert. pc 19:22 EENT: normal eye inspection, ears, nose and throat normal, pharynx normal, mucous membranes moist 19:22 Neck: normal inspection. 19:22 Respiratory: no respiratory distress, no pleuritic chest pain, speaks in full sentences, auscultation reveals rhonchi, rales, diffusely. 19:22 Cardiovascular: normal heart rate, normal rhythm, no jugular venous distension appreciated, no murmurs, no gallop, no friction rub, peripheral pulses full and equal bilaterally. 19:22 Abdomen: non-tender, non-distended, no organomegaly, no ascites. 19:22 Skin: normal color, warm, dry. 19:22 Extremities: non-tender, normal range of motion of all joints, no pedal edema. 19:22 Neuro: alert, oriented to person, place and time, cranial nerves normal as tested, no motor deficits, no sensory deficits. 19:22 Psych: normal mood. Vital Signs: 18:35 BP 192 / 89; Pulse 94; Resp 16 S; Pulse Ox 96% on R/A; Weight 70.76 kg / 156 lbs (R); gr2 Height 5 ft. 7 in. (170.18 cm) (R); Pain 3/10; 18:41 Temp 97.5(O); ck1 19:16 Weight 73.94 kg / 163.01 lbs (M); kb5 19:26 BP 166 / 73 (auto/); mlc 19:26 Pulse 62 MON; Pulse Ox 94% ; mlc 19:38 Pulse 62 MON; Pulse Ox 97% ; mlc 19:41 BP 182 / 79 (auto/); mlc 19:42 Pulse 66 MON; Pulse Ox 93% ; mlc 19:56 BP 177 / 77 (auto/); mlc 19:57 Pulse 60 MON; Pulse Ox 97% ; mlc 20:11 BP 171 / 70 (auto/); mlc 20:12 Pulse 72 MON; Pulse Ox 96% ; mlc 20:26 BP 173 / 77 (auto/); mlc 20:27 Pulse 80 MON; Pulse Ox 95% ; mlc 20:41 BP 175 / 73 (auto/); mlc 20:42 Pulse 76 MON; Pulse Ox 96% ; mlc 20:56 BP 190 / 77 (auto/); mlc 20:57 Pulse 66 MON; Pulse Ox 94% ; mlc 21:11 BP 170 / 74 (auto/); mlc 21:12 Pulse 68 MON; Pulse Ox 94% ; mlc 21:26 BP 175 / 74 (auto/); mlc 21:27 Pulse 74 MON; Pulse Ox 93% ; mlc 21:41 BP 180 / 74 (auto/); mlc 21:42 Pulse 78 MON; Pulse Ox 93% ; mlc 21:56 BP 181 / 72 (auto/); mlc 21:57 Pulse 78 MON; Pulse Ox 92% ; mlc 22:07 Pulse 78 MON; Pulse Ox 92% ; mlc 22:12 BP 183 / 78 (auto/); mlc 22:26 BP 158 / 85 (auto/); mlc 22:26 Pulse 88 MON; Pulse Ox 90% ; mlc 22:41 BP 168 / 72 (auto/); mlc 22:42 Pulse 84 MON; Pulse Ox 91% ; mlc 23:13 BP 166 / 71; Pulse 82; Resp 18; Temp 97.8; Pulse Ox 96% ; Pain 0/10; mlc 19:16 Body Mass Index 25.53 (73.94 kg, 170.18 cm) kb5 18:35 TEMP NEEDS TO BE TAKEN gr2 MDM: 18:38 -Blood Culture (Adults Only), peripheral from different site, or from device/port/PICC fg etc. if present ordered. 18:38 Call Respiratory ordered. fg 18:38 [employer]iconductor Wafer Inspector/Pulse Ox/q 15 min VS ordered. fg 18:38 IV Saline Lock ordered. fg 18:38 Oxygen at 4L/Min NC or Home dosage ordered. fg 18:38 Rhythm Strip to chart ordered. fg 18:39 -Blood Culture Ordered. EDMS 18:39 B-Type Natiuretic Peptide Ordered. EDMS 18:39 Basic Metabolic Profile Ordered. EDMS 18:39 CBC with Diff Ordered. EDMS 18:39 Chest, 1 View Ordered. EDMS 18:40 ECG WITH READING ER PHYS+CARDIAG ordered. EDMS 18:40 ECG WITH READING ER PHYS+CARDIAG ordered. EDMS 18:40 -Blood Culture (Adults Only), peripheral from different site, or from device/port/PICC lbd etc. if present complete. 18:41 Call Respiratory complete. lbd 18:44 BLOOD CULTURES Ordered. EDMS 18:57 Solu-MEDROL 125 mg IVP once ordered. fg 18:57 Albuterol-Ipratropium 3 ml Inhalation once ordered. fg 19:05 Weigh Pt on scale, in Kg (Do Not Use Reported Weight) ordered. pc 19:10 CARDIAC MARKER PANEL Ordered. EDMS 19:22 Furosemide 40 mg IVP once ordered. pc 19:22 Intake and Output Hourly ordered. pc 19:22 Differential diagnosis: CHF, Chronic Obstructive Pulmonary Disease Unstable Angina. pc Plan: labs, EKG, CXR, meds. 19:31 Test interpretation: EKG. pc 20:08 B-Type Natiuretic Peptide Reviewed. pc 20:08 Basic Metabolic Profile Reviewed. pc 20:08 CBC with Diff Reviewed. pc 20:08 CARDIAC MARKER PANEL Reviewed. pc 20:08 Albuterol-Ipratropium 1 neb Nebulizer every 20 minutes x3 ordered. pc 20:08 Call Respiratory ordered. pc 20:09 Call Respiratory complete. mlc 21:02 Financial registration complete. zo 21:09 [facility] Payment Agreement was scanned into [employer] and attached to record. zo 21:49 Ambulate Patient wt Pulse Oximetry ordered. pc 22:58 Data reviewed: old medical records, vital signs, nurses notes, EKG(s), lab test pc results, all radiology studies and available results. Test interpretation: LAB - all labs as ordered have been reviewed, interpreted and considered in the overall management of the clinical presentation; X-RAY - interpreted by Radiologist and personally reviewed, 1 view chest chronic changes. The patient has been re-examined and re-evaluated. The patient's symptoms have markedly improved after treatment, He is laying flat, requesting discharge home. He has diuresed over a liter, his PO is 93% on RA at rest and stay above 89% while ambulating. Disposition: The historical points, examination findings, and any diagnostic results supporting the provided diagnosis, were discussed with the patient or legal guardian. The need for outpatient follow up with the provider listed on their discharge instructions was discussed. They were encouraged to return to [facility], or the nearest ED, if symptoms worsen/persist, or for any other questions/concerns. 12/11 12:41 ECG/EKG was scanned into [employer] and attached to record. gb EC/25 19:31 Rate is 64 beats/min. Rhythm is regular, Normal Sinus Rhythm. QRS [place] is Normal. NV pc interval is prolonged at 303 msec. QRS interval is normal. QT interval is normal. No Q waves. T waves are Normal. No ST changes noted. Clinical impression: Normal Sinus Rhythm and 1st degree heart block. No change from previous ECG in July,. Administered Medications: 19:01 Drug: Albuterol-Ipratropium 3 ml [ipratropium-albuterol 0.5 mg-3 mg(2.5 mg base)/3 mL ac1 nebulization soln (3 mL)] Route: Inhalation; 19:04 Follow up: bs-bilat end exp whz ac1 19:11 Drug: Solu-MEDROL 125 mg [Solu-Medrol 500 mg intravenous solution (125 mg)] Route: IVP; mlc Site: left hand; 19:39 Drug: Furosemide 40 mg [furosemide 10 mg/mL injection solution (4 mL)] Route: IVP; mlc Site: left hand; 20:14 Drug: Albuterol-Ipratropium 1 neb [ipratropium-albuterol 0.5 mg-3 mg(2.5 mg base)/3 mL jh6 nebulization soln (1 neb)] Route: Nebulizer; 20:36 Drug: Albuterol-Ipratropium 1 neb [ipratropium-albuterol 0.5 mg-3 mg(2.5 mg base)/3 mL jh6 nebulization soln (1 neb)] Route: Nebulizer; 20:56 Drug: Albuterol-Ipratropium 1 neb [ipratropium-albuterol 0.5 mg-3 mg(2.5 mg base)/3 mL jh6 nebulization soln (1 neb)] Route: Nebulizer; Signatures: Dispatcher [employer] EDMS Wyatt Grubbs MD MD pc Daly, Linda, Dot Compliance Coordinator Unit lbd Lilian Marcum, Reg Reg Josh Torres Joshua, RN RN Leslie Posey RN RN mlc Gill, Frances, MD MD fg Cowles, Charleen RT [facility] Oneil Conner [facility] The chart was reviewed and I authenticate all verbal orders and agree with the evaluation and treatment provided.Corrections: (The following items were deleted from the chart) 19:10 19:05 CARDIAC INJURY PROFILE+LAB ordered. EDMS EDMS 19:10 19:05 TROPONIN+LAB ordered. EDMS EDMS Attachments: 21:09 [facility] Payment Agreement zo 12/11 12:41 ECG/EKG gb Chart Complete MTDD
--- NOTE | 2016-12-13 00:16 | EDDOCDS ---
Nurse's Notes [facility] Name: Fatmata Gil Age: 71 yrs Sex: Male : 1945 Arrival Date: 12/10/2016 Time: 18:33 Bed 6 Private MD: ZOEY HUTCHINSON Diagnosis: Acute on chronic systolic (congestive) heart failure-resolved;Chronic obstructive pulmonary disease with (acute) exacerbation-resolved Presentation: 12/10 18:37 Presenting complaint: Patient states: Patient reports inability to breath. Symptoms jmb present for 3-4 weeks but worse tonight. Adult Sepsis Screening: The patient does not have new or worsening altered mentation. Patient's respiratory rate is less than 22. Systolic blood pressure is greater than 100. Patient has a qSOFA score of 0- Negative Sepsis Screen. Suicide/Homicide risk assessment- the patient denies having any suicidal and/or homicidal ideations and does not present with any other emotional, behavioral or mental health complaints. Status: Patient is not a in service coordinator or dependent. Transition of care: patient was not received from another setting of care. 18:37 Acuity: TAMEKA Level 3 jmb 18:37 Method Of Arrival: Wheelchair b Triage Assessment: 18:45 General: Appears uncomfortable, Behavior is appropriate for age, cooperative. Pain: jmb Denies pain. Neurological: Level of Consciousness is awake, alert, obeys commands, Oriented to person, place, time, Speech is normal, Facial symmetry appears normal. Respiratory: Onset: The symptoms/episode began/occurred gradually, Airway is patent Respiratory effort is even, labored, Respiratory pattern is regular. GI: No deficits noted. Derm: Skin is pink, warm & dry. Musculoskeletal: Range of motion intact in all extremities. Historical: - Allergies: SULFA (SULFONAMIDES); - Home Meds: 1. fenofibrate 160 mg oral tab 1 tab once daily 2. Xanax 0.25 mg Oral tab 1 tab 3 times per day 3. albuterol sulfate 2.5 mg /3 mL (0.083 %) Inhl nebu 3 mL 3 times per day 4. Atrovent 18 mcg/actuation Inhl aero four times a day 5. Fish Oil 1,000 mg Oral cap 2 cap daily 6. docusate sodium 100 mg Oral cap 1 cap 2 times per day 7. latanoprost 0.005 % ophthalmic drop 1 drop once daily 8. Flomax 0.4 mg Oral cp24 1 cap once daily 9. Advair Diskus 500-50 mcg/dose Inhl dsdv 1 puff 2 times per day 10. Combivent 18-103 mcg/actuation Inhl aero 2 puffs 4 times per day 11. Lasix 40 mg Oral tab 1 tab once daily 12. gentamicin 0.1 % Topical crea 3 times per day 13. Humalog 100 unit/mL Sub-Q soln 6 unit sliding scale 14. Zebeta 5 mg oral tab 1 tab once daily 15. omeprazole 20 mg oral cpDR 1 cap once daily 16. Zoloft 50 mg Oral tab 1 tab once daily 17. Lantus 100 unit/mL Sub-Q soln 27 unit daily 18. lisinopril 10 mg Oral tab 1 tab twice a day 19. Proscar 5 mg Oral tab 1 tab once daily 20. Crestor 10 mg Oral tab 1 tab once daily 21. Drisdol 50,000 unit Oral cap 1 cap once daily 22. Tylenol 325 mg Oral tab 2 tabs every 4-6 hours - PMHx: Anxiety; BPH; COPD; Depression; Diabetes - IDDM: uncontrolled; ESRD 3; GERD; Hypercholesterolemia; Hypertension; PVD; - PSHx: 5 vessel CABG 2008; fem/pop bypass right leg; - The history from nurses notes was reviewed: and I agree with what is documented. - Social history: Smoking status: Patient states former smoker of tobacco. No barriers to communication noted, The patient speaks fluent Portuguese, Speaks appropriately for age. - Family history: Not pertinent, No immediate family members are acutely ill. - : The pt / caregiver states he / she is not on anticoagulants. Home medication list is obtained from the patient. - Hospitalizations: : No recent hospitalization is reported. - Exposure Risk Screening:: None identified. - Immunization history:: All immunizations up-to-date. - Social history:: the patient is a former smoker, the patient does not drink alcohol. Screenin:55 Screening information is obtained from the patient. Fall risk: At risk due to weakness. ck1 The following interventions are performed due to a positive Fall Risk Screen: Fall Risk is added to Special Handling on the patient Summary Screen. A Fall Risk Bracelet was applied to the patient. Side Rails are placed in the up position. A Call Fair is given with instruction to call for help when getting out of bed. Fall Alert bracelet is placed on the patient. Abuse/DV Screen: The patient / caregiver reports he/she is: not in a situation that causes fear, pain or injury. Nutritional screening: No deficits noted. home support is adequate. 23:13 Assistance ADL's: requires no assistance with activities of daily living. Advance mlc Directives: There is no active DNR order. Assessment: 18:55 General: Appears ill, Behavior is appropriate for age, cooperative. Pain: Denies pain. ck1 Cardiovascular: Chest pain is denied. Respiratory: Respiratory effort is labored, Respiratory pattern is symmetrical, Breath sounds are diminished bilaterally. Derm: Skin is intact, Skin is pink, warm & dry. 19:12 General: Appears in no apparent distress, comfortable, Behavior is cooperative, mlc pleasant. Pain: Denies pain. Neurological: Level of Consciousness is awake, alert, obeys commands, Oriented to person, place, time. Cardiovascular: Heart tones S1 S2 present Rhythm is sinus rhythm No ectopy. Chest pain is denied. Respiratory: Airway is patent Respiratory effort is even, labored, Respiratory pattern is regular, Breath sounds with wheezes expiratory bilaterally. Derm: Skin is pink, warm & dry. 19:39 Reassessment: Patient appears in no apparent distress at this time. pt medicated per mlc order. 21:08 Reassessment: Patient appears in no apparent distress at this time. Patient denies pain mlc at this time. pt resting comfortably in bed, resp easy/unlabored. . 21:46 Reassessment: Patient appears in no apparent distress at this time. Patient denies pain mlc at this time. pt given water per Dr. Grubbs. resp easy/unlabored. . 22:13 Reassessment: pt ambulated down bains, tolerated well. pt denies feeling SOB. SPO2 mlc remained about 88%. pulse increased to 95. 23:12 General: Appears in no apparent distress, comfortable, Behavior is cooperative. Pain: mlc Denies pain. Neurological: Level of Consciousness is awake, alert, Oriented to person, place, time. Respiratory: Airway is patent Respiratory effort is even, unlabored, Respiratory pattern is regular. Vital Signs: 18:35 BP 192 / 89; Pulse 94; Resp 16 S; Pulse Ox 96% on R/A; Weight 70.76 kg (R); Height 5 gr2 ft. 7 in. (170.18 cm) (R); Pain 3/10; 18:41 Temp 97.5(O); ck1 19:16 Weight 73.94 kg (M); kb5 19:26 BP 166 / 73 (auto/); mlc 19:26 Pulse 62 MON; Pulse Ox 94% ; mlc 19:38 Pulse 62 MON; Pulse Ox 97% ; mlc 19:41 BP 182 / 79 (auto/); mlc 19:42 Pulse 66 MON; Pulse Ox 93% ; mlc 19:56 BP 177 / 77 (auto/); mlc 19:57 Pulse 60 MON; Pulse Ox 97% ; mlc 20:11 BP 171 / 70 (auto/); mlc 20:12 Pulse 72 MON; Pulse Ox 96% ; mlc 20:26 BP 173 / 77 (auto/); mlc 20:27 Pulse 80 MON; Pulse Ox 95% ; mlc 20:41 BP 175 / 73 (auto/); mlc 20:42 Pulse 76 MON; Pulse Ox 96% ; mlc 20:56 BP 190 / 77 (auto/); mlc 20:57 Pulse 66 MON; Pulse Ox 94% ; mlc 21:11 BP 170 / 74 (auto/); mlc 21:12 Pulse 68 MON; Pulse Ox 94% ; mlc 21:26 BP 175 / 74 (auto/); mlc 21:27 Pulse 74 MON; Pulse Ox 93% ; mlc 21:41 BP 180 / 74 (auto/); mlc 21:42 Pulse 78 MON; Pulse Ox 93% ; mlc 21:56 BP 181 / 72 (auto/); mlc 21:57 Pulse 78 MON; Pulse Ox 92% ; mlc 22:07 Pulse 78 MON; Pulse Ox 92% ; mlc 22:12 BP 183 / 78 (auto/); mlc 22:26 BP 158 / 85 (auto/); mlc 22:26 Pulse 88 MON; Pulse Ox 90% ; mlc 22:41 BP 168 / 72 (auto/); mlc 22:42 Pulse 84 MON; Pulse Ox 91% ; mlc 23:13 BP 166 / 71; Pulse 82; Resp 18; Temp 97.8; Pulse Ox 96% ; Pain 0/10; mlc 19:16 Body Mass Index 25.53 (73.94 kg, 170.18 cm) kb5 18:35 TEMP NEEDS TO BE TAKEN gr2 Vitals: 18:35 Log In Time: December 10, 2016 at 18:35. RN notified that patient meets Red Flag gr2 criteria. ED Course: 18:34 Patient visited by Andrew Guillen. gr2 18:34 Patient moved to Waiting gr2 18:35 ZOEY HUTCHINSON is Private Physician. gr2 18:36 Patient visited by Andrew Guillen. gr2 18:36 Patient moved to Pre RCE gr2 18:36 Patient moved to 6 rs6 18:38 Triage Initiated jmb 18:46 Pt greeted and oriented to ED. Patient advised of names of staff involved in care, rs6 location of call fair, wait times and NPO status. Accompanied by Family Member, Patient has correct armband on for positive identification. Placed in gown. Bed in low position. Call light in reach. Side rails up X 1. media monitor on. Pulse ox on. NIBP on. 18:46 EKG done. (by ED staff). Reviewed by Lali Simental MD. rs6 18:47 Patient visited by Rose Brown PCA. rs6 18:47 B-Type Natiuretic Peptide Sent. rs6 18:54 Inserted saline lock: 20 gauge in left hand and blood collected. The patient tolerated ck1 the procedure well. 19:00 CBC with Diff Sent. mlc 19:00 Basic Metabolic Profile Sent. mlc 19:00 -Blood Culture Sent. mlc 19:01 Leslie Lorenzo,RN is Primary Nurse. mlc 19:02 Wyatt Grubbs MD is Attending Physician. pc 19:11 CARDIAC MARKER PANEL Sent. mlc 19:12 The patient / caregiver is instructed regarding the plan of care and ED course. mlc 19:12 O2 via nasal cannula \T\ 2L/min. mlc 19:13 Patient visited by Wyatt Grubbs MD. pc 19:13 Patient visited by Leslie Lorenzo,LUIS MIGUEL. mlc 19:39 BLOOD CULTURES Sent. mlc 19:40 Patient visited by Leslie Lorenzo,LUIS MIGUEL. mlc 20:12 Chest, 1 View Returned. EDMS 20:34 Patient visited by Abundio Guan, SIOBHAN. kb5 21:09 Patient visited by Leslie Lorenzo,RN. mlc 21:09 [facility] Payment Agreement was scanned into [employer] and attached to record. zo 21:23 Patient visited by Abundio Guan PCA. kb5 21:46 Patient visited by Leslie Lorenzo,LUIS MIGUEL. mlc 22:14 Patient visited by Leslie Lorenzo RN. mlc 23:00 ZOEY HUTCHINSON is Referral Physician. pc 23:05 Patient visited by Abundio Guan PCA. kb5 23:13 Discontinued IV lock intact, bleeding controlled, pressure dressing applied, No mlc redness/swelling at site. No procedures done that require assistance. 12/11 07:36 EKG-ADULT Returned. EDMS 12:41 ECG/EKG was scanned into [employer] and attached to record. gb Administered Medications: 12/10 19:01 Drug: Albuterol-Ipratropium 3 ml [ipratropium-albuterol 0.5 mg-3 mg(2.5 mg base)/3 mL ac1 nebulization soln (3 mL)] Route: Inhalation; 19:04 Follow up: bs-bilat end exp whz ac1 19:11 Drug: Solu-MEDROL 125 mg [Solu-Medrol 500 mg intravenous solution (125 mg)] Route: IVP; mlc Site: left hand; 19:39 Drug: Furosemide 40 mg [furosemide 10 mg/mL injection solution (4 mL)] Route: IVP; mlc Site: left hand; 20:14 Drug: Albuterol-Ipratropium 1 neb [ipratropium-albuterol 0.5 mg-3 mg(2.5 mg base)/3 mL jh6 nebulization soln (1 neb)] Route: Nebulizer; 20:36 Drug: Albuterol-Ipratropium 1 neb [ipratropium-albuterol 0.5 mg-3 mg(2.5 mg base)/3 mL jh6 nebulization soln (1 neb)] Route: Nebulizer; 20:56 Drug: Albuterol-Ipratropium 1 neb [ipratropium-albuterol 0.5 mg-3 mg(2.5 mg base)/3 mL jh6 nebulization soln (1 neb)] Route: Nebulizer; Intake: Output: 21:08 Urine: 650.00ml (Voided); Total: 650.00ml. mlc 21:46 Urine: 375.00ml (Voided); Total: 1025.00ml. mlc RT: 19:02 Initial Med Neb Given as ordered Patient was instructed and evaluated on procedure. ac1 Respiratory: Breath sounds with wheezes bilaterally. at expiration. 20:14 Subsequent Med Neb Given as ordered Patient was reinforced on procedure Patient lissa6 tolerated procedure well without adverse effect. Respiratory: Airway is patent Respiratory effort is even, unlabored, Respiratory pattern is regular symmetrical, Breath sounds with rhonchi in right upper lobe, left upper lobe, right middle lobe, left lower lobe and right lower lobe Breath sounds with wheezes in right upper lobe, left upper lobe, right middle lobe, left lower lobe and right lower lobe at expiration Reports some shortness of breath. 20:25 Respiratory: Airway is patent Respiratory effort is even, unlabored, Respiratory jh6 pattern is regular symmetrical, Breath sounds with wheezes in right upper lobe, left upper lobe, right middle lobe, left lower lobe and right lower lobe at expiration. 20:36 Subsequent Med Neb Given as ordered Patient was reinforced on procedure Patient lissa6 tolerated procedure well without adverse effect. Respiratory: Airway is patent Respiratory effort is even, unlabored, Respiratory pattern is regular symmetrical, Breath sounds with rhonchi in right upper lobe, left upper lobe and right middle lobe Breath sounds are diminished in right upper lobe, left upper lobe, right middle lobe, left lower lobe and right lower lobe Reports. 20:59 Subsequent Med Neb Given as ordered Patient was reinforced on procedure Patient lissa6 tolerated procedure well without adverse effect. Respiratory: Airway is patent Respiratory effort is even, unlabored, Respiratory pattern is regular symmetrical, Breath sounds are diminished in right upper lobe, left upper lobe, right middle lobe, left lower lobe and right lower lobe Breath sounds with wheezes in right upper lobe, left upper lobe, right middle lobe, left lower lobe and right lower lobe at expiration. 21:06 Respiratory: Airway is patent Respiratory effort is even, unlabored, Respiratory jh6 pattern is regular symmetrical, Breath sounds with wheezes in right upper lobe, left upper lobe, right middle lobe, left lower lobe and right lower lobe at expiration. Order Results: Lab Order: -Blood Culture; SPEC'M 12/10/16 18:52 Test: BLOOD CULTURE; Value: No growth after 24 hours . All specimens observed; Status: F Test: BLOOD CULTURE; Value: for 5 days. Results final at that time.; Status: F Test: BLOOD CULTURE; Value: No Growth after 48 hours. All Specimens observed; Status: F Test: BLOOD CULTURE; Value: for 7 days. Results final at that time.; Status: F Lab Order: B-Type Natiuretic Peptide; SPEC'M 12/10/16 18:51 Test: BRAIN NATRIURETIC PEPTIDE; Value: 146; Range: <100; Abnormal: Above high normal; Units: PG/ML; Status: F Lab Order: Basic Metabolic Profile; SPEC'M 12/10/16 18:51 Test: GLUCOSE, FASTING; Value: 157; Range: 83-110; Abnormal: Above high normal; Units: MG/DL; Status: F Test: BLOOD UREA NITROGEN; Value: 36; Range: 7-18; Abnormal: Above high normal; Units: MG/DL; Status: F Test: CREATININE FOR GFR; Value: 1.59; Range: 0.70-1.30; Abnormal: Above high normal; Units: MG/DL; Status: F Test: GLOMERULAR FILTRATION RATE; Value: 45.7; Range: >42; Status: F Test: SODIUM LEVEL; Value: 142; Range: 136-145; Units: MEQ/L; Status: F Test: POTASSIUM SERUM; Value: 4.0; Range: 3.5-5.1; Units: MEQ/L; Status: F Test: CHLORIDE LEVEL; Value: 107; Range: 98-107; Units: MEQ/L; Status: F Test: CARBON DIOXIDE LEVEL; Value: 25; Range: 21-32; Units: MEQ/L; Status: F Test: ANION GAP; Value: 10; Range: 8-16; Units: MEQ/L; Status: F Test: CALCIUM LEVEL; Value: 9.2; Range: 8.8-10.2; Units: MG/DL; Status: F Test Note: ; Units are mL/min/1.73 m2 Chronic Kidney Disease Staging per NKF: Stage I & II GFR >=60 Normal to Mildly Decreased Stage III GFR 30-59 Moderately Decreased Stage IV GFR 15-29 Severely Decreased Stage V GFR <15 Very Little GFR Left ESRD 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 Lab Order: CBC with Diff; SPEC'M 12/10/16 18:51 Test: WHITE BLOOD COUNT; Value: 6.5; Range: 4.0-10.0; Units: K/mm3; Status: F Test: RED BLOOD COUNT; Value: 3.96; Range: 4.30-6.10; Abnormal: Below low normal; Units: M/mm3; Status: F Test: HEMOGLOBIN; Value: 11.6; Range: 14.0-18.0; Abnormal: Below low normal; Units: g/dl; Status: F Test: HEMATOCRIT; Value: 35.7; Range: 42.0-52.0; Abnormal: Below low normal; Units: %; Status: F Test: MEAN CORPUSCULAR VOLUME; Value: 90.0; Range: 80.0-96.0; Units: fl; Status: F Test: MEAN CORPUSCULAR HEMOGLOBIN; Value: 29.2; Range: 27.0-33.0; Units: pg; Status: F Test: MEAN CORPUSCULAR HGB CONC; Value: 32.5; Range: 32.0-36.5; Units: g/dl; Status: F Test: RED CELL DISTRIBUTION WIDTH; Value: 16.6; Range: 11.5-14.5; Abnormal: Above high normal; Units: %; Status: F Test: PLATELET COUNT, AUTOMATED; Value: 279; Range: 150-450; Units: k/mm3; Status: F Test: NEUTROPHILS %; Value: 78.9; Range: 36.0-66.0; Abnormal: Above high normal; Units: %; Status: F Test: LYMPH %; Value: 11.8; Range: 24.0-44.0; Abnormal: Below low normal; Units: %; Status: F Test: MONO %; Value: 5.7; Range: 0.0-5.0; Abnormal: Above high normal; Units: %; Status: F Test: EOS %; Value: 1.1; Range: 0.0-3.0; Units: %; Status: F Test: BASO %; Value: 0.8; Range: 0.0-1.0; Units: %; Status: F Test: LARGE UNSTAINED CELL %; Value: 1.6; Range: 0.0-4.0; Units: %; Status: F Test: NEUTROPHILS #; Value: 5.1; Range: 1.8-7.7; Units: K/mm3; Status: F Test: LYMPH #; Value: 0.9; Range: 1.5-4.5; Abnormal: Below low normal; Units: K/mm3; Status: F Test: MONO #; Value: 0.4; Range: 0.0-0.8; Units: K/mm3; Status: F Test: EOS #; Value: 0.1; Range: 0.0-0.50; Units: K/mm3; Status: F Test: BASO #; Value: 0.0; Range: 0.0-0.2; Units: K/mm3; Status: F Test: LARGE UNSTAINED CELL #; Value: 0.1; Range: 0.0-0.4; Units: K/mm3; Status: F Lab Order: BLOOD CULTURES; SPEC'M 12/10/16 19:26 Test: BLOOD CULTURE; Value: No growth after 24 hours . All specimens observed; Status: F Test: BLOOD CULTURE; Value: for 5 days. Results final at that time.; Status: F Test: BLOOD CULTURE; Value: No Growth after 48 hours. All Specimens observed; Status: F Test: BLOOD CULTURE; Value: for 7 days. Results final at that time.; Status: F Lab Order: CARDIAC MARKER PANEL; SPEC'M 12/10/16 18:51 Test: CPK CREATINE PHOSPHOKINASE; Value: 120; Range: 39-308; Units: U/L; Status: F Test: CK-MB VALUE MASS; Value: 3.2; Range: 0.0-3.6; Units: NG/ML; Status: F Test: MB/CK RELATIVE INDEX; Value: 2.66; Range: < OR =4; Status: F Test: TROPONIN I; Value: < 0.02; Range: < 0.10; Units: NG/ML; Status: F Test Note: ; DIAGNOSIS CRITERIA MMB ng/ml Relative Index (RI) NON-AMI < or = 5 N/A COMER ZONE > 5 < or = 4 AMI > 5 > 4 Radiology Order: Chest, 1 View Test: Chest, 1 View REASON FOR EXAMINATION: Shortness of Breath; Portable chest x-ray: Single view:; ; History: Shortness of breath.; ; Comparison study 08/12/2016.; ; Findings: There is linear pleuroparenchymal fibrosis again seen in the left; midlung zone. Prior sternotomy wires are noted. The aorta is calcific as; before. The heart is not enlarged. There is chronic blunting of the left; lateral pleural angle. Interstitial markings are diffusely somewhat prominent; unchanged. 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 Prior sternotomy.; Diffusely somewhat prominent but stable pulmonary interstitial markings. 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 pc 23:13 Discharge Assessment: Patient awake, alert and oriented x 3. No cognitive and/or mlc functional deficits noted. Patient verbalized understanding of disposition instructions. patient administered narcotics - no. The following High Risk Discharge criteria are identified: None. Discharged to home via wheelchair, with family. Condition: good Condition: stable. Discharge instructions given to patient, Instructed on discharge instructions, follow up and referral plans. Demonstrated understanding of instructions, Pt was receptive of discharge instructions/ teaching. No special radiology studies were completed. Property sent home with patient. 23:14 Patient left the ED. mlc Signatures: Dispatcher [employer] EDMS Wyatt Grubbs MD MD pc Lilian Marcum, Reg Reg gb Charleen Marie,RT RT ac1 Karla Mcintyre RN RN ck1 Josh Benites Kristopher, SIOBHAN FILM DEVELOPER kb5 Oneil Conner jh6 Andrew Guillen gr2 Ryan Cortés,RN RN Leslie Posey,LUIS MIGUEL RN umesh Brown, Rose, FILM DEVELOPER FILM DEVELOPER rs6 Chart Complete MTDD
== END 2016-12-10 23:14 | disposition home or self-care (01) ==
LOC: M ED 18:33
DX: I50.23 Acute on chronic systolic (congestive) heart failure (principal); J44.1 Chronic obstructive pulmonary disease with (acute) exacerbation; F41.9 Anxiety disorder, unspecified; N40.0 Benign prostatic hyperplasia without lower urinary tract symptoms; F32.9 Major depressive disorder, single episode, unspecified; E11.65 Type 2 diabetes mellitus with hyperglycemia; I12.9 Hypertensive chronic kidney disease with stage 1 through stage 4 chronic kidney disease, or unspecified chronic kidney disease; N18.3 Chronic kidney disease, stage 3 (moderate); K21.9 Gastro-esophageal reflux disease without esophagitis; E78.00 Pure hypercholesterolemia, unspecified; I73.9 Peripheral vascular disease, unspecified; Z95.5 Presence of coronary angioplasty implant and graft; Z87.891 Personal history of nicotine dependence; Z79.51 Long term (current) use of inhaled steroids; Z79.4 Long term (current) use of insulin; Z79.899 Other long term (current) drug therapy; Z88.2 Allergy status to sulfonamides
CPT/HCPCS: 36415; 71010; 80048; 82550; 82553; 83880; 84484; 85025; 87040; 93005; 93041; 94640; 96374; 96375; 99285; J1940; J2930

== ENCOUNTER 2017-03-24 08:57 | Inpatient (IN) | payer MEDICARE ==
[~2017-03-24] VITALS: Ht 167.6 cm; Wt 75.5 kg
[~2017-03-24 08:57] MED LIST changes: +CRES10TA32 PO; -ROSU10TA PO
[2017-03-24] MEDS ORDERED: methylPREDNISolone INJ 125 MG/2 ML VIAL (J2930) IV ONE (09:30)
--- NOTE | 2017-03-24 09:41 | REP ---
PORTABLE CHEST: AP portable view of the chest is performed and compared to the prior study of 12/10/2016. Diffuse interstitial fibrosis is seen as well as chronic pleural thickening on the left. The findings are stable with no definite superimposed acute infiltrate. The heart is upper limits of normal in size. There is calcified ectatic aorta. The mediastinal silhouette is unchanged. Multiple sternal wires and mediastinal clips are present. IMPRESSION: Stable chronic findings with no definite superimposed acute infiltrate. Signed by Zachary Torres MD 03/24/2017 04:06 P
[2017-03-24 09:44] LABS: BASO % 0.3 % (0.0-1.0); EOS # 0.2 K/mm3 (0.0-0.50); EOS % 2.3 % (0.0-3.0); LARGE UNSTAINED CELL # 0.1 K/mm3 (0.0-0.4); LARGE UNSTAINED CELL % 1.1 % (0.0-4.0); LYMPH # 0.7 K/mm3 (1.5-4.5); LYMPH % 9.6 % (24.0-44.0); MEAN CORPUSCULAR HEMOGLOBIN 29.6 pg (27.0-33.0); MEAN CORPUSCULAR HGB CONC 31.7 g/dl (32.0-36.5); MEAN CORPUSCULAR VOLUME 93.2 fl (80.0-96.0); MONO # 0.4 K/mm3 (0.0-0.8); MONO % 5.1 % (0.0-5.0); NEUTROPHILS # 5.8 K/mm3 (1.8-7.7); NEUTROPHILS % 81.6 % (36.0-66.0); PLATELET COUNT, AUTOMATED 248 k/mm3 (150-450); RED CELL DISTRIBUTION WIDTH 15.8 % (11.5-14.5); WHITE BLOOD COUNT 7.2 K/mm3 (4.0-10.0)
[2017-03-24] MEDS: IPRATROPIUM 0.5MG/ALBUTEROL 2.5MG INH SOL UD 3ML (DUONEB)(J7620) NEB PRN ×3 (09:46→10:54)
[2017-03-24 10:01] LABS: ABG BASE EXCESS -2.3 (-2.0-2.0); ABG HCO3 22.4 MEQ/L (22.0-26.0); ABG PARTIAL PRESSURE CO2 38.2 mmHg (35.0-45.0); ABG STANDARD HCO3 22.6 MEQ/L (22.0-26.0); ABG TOTAL CO2 23.6 MEQ/L (23.0-31.0); ABG pH (ARTERIAL) 7.386 UNITS (7.350-7.450)
[2017-03-24 10:42] LABS: ALBUMIN 3.1 GM/DL (3.2-5.2); ALBUMIN/GLOBULIN RATIO 0.82 (1.00-1.93); ALKALINE PHOSPHATASE 38 U/L (45-117); ALT/SGPT 22 U/L (12-78); ANION GAP 9 MEQ/L (8-16); AST/SGOT 14 U/L (15-37); BILIRUBIN,DIRECT 0.1 MG/DL (0.0-0.2); BILIRUBIN,TOTAL 0.4 MG/DL (0.2-1.0); BLOOD UREA NITROGEN 56 MG/DL (7-18); CALCIUM LEVEL 8.4 MG/DL (8.8-10.2); CARBON DIOXIDE LEVEL 24 MEQ/L (21-32); CHLORIDE LEVEL 106 MEQ/L (98-107); CREATININE FOR GFR 1.97 MG/DL (0.70-1.30); GLOMERULAR FILTRATION RATE 35.6 (>42); GLUCOSE, FASTING 281 MG/DL (83-110); POTASSIUM SERUM 4.7 MEQ/L (3.5-5.1); SODIUM LEVEL 139 MEQ/L (136-145); TOTAL PROTEIN 6.9 GM/DL (6.4-8.2)
--- NOTE | 2017-03-24 12:33 | REP ---
CT CHEST WITHOUT CONTRAST: CT chest performed without IV contrast. Sagittal and coronal reconstruction images performed. Comparison made with a prior study of 03/14/2010. Diffuse emphysematous and fibrotic changes are again seen. Tiny 5 mm nodular opacity in the right upper lobe is unchanged as is a 7 mm subpleural nodular density in the left lower lobe. There is no acute infiltrate. Heart does not appear to be significantly enlarged. There is no pleural or pericardial effusion. Several subcentimeter lymph nodes are seen in the mediastinal and hilar regions with a slightly enlarged precarinal lymph node 11 mm in short axis dimension. There are mild atherosclerotic calcifications of the thoracic aorta with ectasia of the aortic root 4.1 cm in diameter. There are diverticula of the visualized colon in the upper abdomen. Two small adrenal adenomas are seen on the right. Sclerotic lesion in the T7 vertebral body posterolaterally on the left could represent a metastatic lesion. This is not seen on the prior study in 2009. IMPRESSION: Emphysematous and fibrotic changes without acute infiltrate or other acute finding in the lungs. Minimally prominent precarinal lymph node 11 mm in short axis is of doubtful significance. New sclerotic lesion T7 vertebral body posteriorly on the left could potentially represent a metastatic lesion. Signed by Zachary Torres MD 03/24/2017 04:08 P
[2017-03-24] MEDS: HEPARIN SOD (PORCINE) 5000 UNITS/ML VIAL SC SCH ×2 (14:00→20:37)
[2017-03-24] MEDS ORDERED: PRED50TA PO (14:08)
[2017-03-24] MEDS ORDERED: DEXTROSE 50% 50 ML SYRINGE IV PRN (15:30)
[2017-03-24] MEDS ORDERED: GLUCAGON FOR INJ 1 MG VIAL (J1610) SC PRN (15:30)
[2017-03-24] MEDS ORDERED: GLUCOSE 4 GM CHEW TABLET PO PRN (15:30)
[2017-03-24] MEDS ORDERED: BISO5TAB5 PO (15:42)
[2017-03-24] MEDS ORDERED: FENO160T10 PO (15:44)
[2017-03-24] MEDS ORDERED: FURO40TA2 PO (15:51)
[2017-03-24] MEDS ORDERED: LATA5OPD OU (15:51)
[2017-03-24] MEDS ORDERED: FLOM5CAP PO (15:51)
[2017-03-24] MEDS ORDERED: ARTI99.0 OU (15:51)
[2017-03-24] MEDS ORDERED: IPRASOL4 INH (15:51)
--- NOTE | 2017-03-24 15:57 | HPE ---
DATE OF ADMISSION: 03/24/2017 PRIMARY CARE PROVIDER: Sharon Larson PA-C in [facility]. HISTORY OF PRESENT ILLNESS: The patient is a 72-year-old male with a past medical history significant for chronic obstructive pulmonary disease (COPD), type 2 diabetes, coronary artery disease, peripheral artery disease, paroxysmal atrial fibrillation, hypertension, and chronic kidney disease (CKD) who presented to [facility] on 03/24/2017 for worsening shortness of breath. The patient stated that for the past few days he has increased shortness of breath and started experiencing a sore throat. He also feels that there is some chest tightness. He could not bring any sputum up and denies any increased cough. At baseline, the patient does not require any oxygen but the patient has to sleep with eight pillows at night. He cannot breathe if he lays flat. No other associated symptoms. PAST MEDICAL HISTORY: 1. Chronic obstructive pulmonary disease (COPD). 2. Type 2 diabetes. 3. Anxiety/depression. 4. Coronary artery disease status post coronary artery bypass graft (CABG). 5. Peripheral artery disease. 6. Paroxysmal atrial fibrillation. 7. Chronic anemia. 8. Hypertension. 9. Hyperlipidemia. 10. Chronic kidney disease, stage III. 11. Benign prostatic hypertrophy (BPH). PAST SURGICAL HISTORY: 1. Coronary artery bypass graft (CABG) times five. 2. Right lower extremity stenting. 3. Hemorrhoidectomy. 4. Right femoral endarterectomy of the right side. 5. Right femoral popliteal bypass. 6. Right femoral hernia repair. SOCIAL HISTORY: The patient quit smoking since 2008. Denies alcohol use. Denies recreational drug use. The patient is a full code. REVIEW OF SYSTEMS: GENERAL: No fever. No chills. HEENT: No vision changes. No auditory changes. CARDIOVASCULAR: No chest pain. No palpations but the patient does have a history of coronary artery disease status post open heart surgery. The patient also has a history of paroxysmal atrial fibrillation. RESPIRATORY: Patient has chronic obstructive pulmonary disease (COPD) and increased shortness of breath since a few days ago. He complained about significant wheeze. GASTROINTESTINAL: No nausea. No vomiting. No abdominal pain. No diarrhea. MUSCULOSKELETAL: No muscle pain or joint pain. NEUROLOGICAL: Denies any numbness or tingling. OBJECTIVE: VITAL SIGNS: Temperature is 97.6, pulse is 96, respirations 20, blood pressure is 147/78, pulse oximetry is 91% on room air. GENERAL: Anxious, in no sign of acute distress, alert and oriented times three. HEENT: Normocephalic, atraumatic. Positive jugular venous distention (JVD). Extraocular motor grossly intact. CARDIOVASCULAR: Positive S1, S2, irregular. RESPIRATORY: Positive significant expiratory wheezes throughout. No rhonchi. ABDOMEN: Soft, nontender, nondistended. Bowel sounds present. No rebound. No guarding. EXTREMITIES: Mild trace edema bilaterally. No sign of cyanosis. NEUROLOGICAL: Muscle strength 5/5 throughout. Sensation to fine touch grossly intact. LABORATORY DATA: WBC 7.2, hemoglobin 12.4, hematocrit 39.1, platelet count is 248. Sodium is 139, potassium 4.7, chloride is 106, carbon dioxide 24, BUN 56, creatinine 1.97, GFR is 35.6, fasting glucose 281, calcium 8.4, total bilirubin 0.4, direct bilirubin 0.1, AST 14, ALT 22, alkaline phosphatase 38, total CK is 103, troponin I is less than 0.02, BNP is 250, total protein 6.9, albumin 3.1. ASSESSMENT AND PLAN: 1. Acute respiratory distress secondary to chronic obstructive pulmonary disease (COPD) exacerbation. Due to significant history, patient will be observation in the progressive care unit (PCU). The patient already had Solu-Medrol IV times one in the emergency room. We will continue with steroids ordered tomorrow. The patient will have a nebulizer as needed. The patient will have azithromycin. 2. Type 2 diabetes. The patient will be on sliding scale and consistent-carbohydrate diet. 3. Anxiety and depression. Continue home medications. 4. History of coronary artery disease status post coronary artery bypass graft (CABG) times five. Continue home medications. 5. Peripheral artery disease. 6. Paroxysmal atrial fibrillation. The patient will be monitored on telemetry. 7. First degree heart block. The patient's previous EKG was reviewed. The patient has been having first degree heart block for a long duration. Currently, he is asymptomatic. 8. Hypertension. Continue home medications. 9. Dyslipidemia. Continue home medications. 10. Chronic kidney disease, stage III. We will continue to follow the patient's renal function. Currently, creatinine is 1.97 and glomerular filtration rate (GFR) 35.6. 11. Benign prostatic hypertrophy (BPH). 12. Deep vein thrombosis (DVT) prophylaxis. The patient will be on heparin.
[2017-03-24] MEDS ORDERED: FUROSEMIDE 40 MG/4 ML VIAL (J1940) IV ONE (16:00)
[2017-03-24] MEDS ORDERED: HumaLOG INSULIN (NovoLOG) PER UNIT SC ONE (16:15)
[2017-03-24] MEDS ORDERED: ALPRAZolam 0.25 MG TAB PO PRN (16:15)
[2017-03-24] MEDS ORDERED: FUROSEMIDE 40 MG TAB PO SCH (17:00)
[2017-03-24] MEDS: HumaLOG INSULIN (NovoLOG) PER UNIT SC SCH ×2 (17:30→20:36)
[2017-03-24] MEDS: ADVAIR DISKUS 500/50 INH PWD INH SCH (20:14)
[2017-03-24 20:22] VITALS: O2SAT 97
[2017-03-24 20:30] VITALS: BP 160/72
[2017-03-24] MEDS: predniSONE 20 MG TAB PO SCH (20:33)
[2017-03-24] MEDS: ROSUVASTATIN 10 MG TAB (CRESTOR) PO SCH (20:34)
[2017-03-24] MEDS: AZITHROMYCIN 250 MG TAB PO SCH (20:34)
[2017-03-24] MEDS: FUROSEMIDE 20 MG TAB PO SCH (20:34)
[2017-03-24] MEDS: LISINOPRIL 10 MG TAB PO SCH (20:35)
[2017-03-24] MEDS: TAMSULOSIN 0.4 MG CAP PO SCH (20:35)
[2017-03-24] MEDS: LEVEMIR (INSULIN DETEMIR) 1 UNITS/0.01ML SC SCH (20:36)
[2017-03-24] MEDS: POLYVINYL ALCOHOL OPHTH SOLN 15 ML(LIQUITEARS) OU SCH (21:42)
[2017-03-24] MEDS: LATANOPROST 0.005% OPHTH SOLN 2.5 ML OU SCH (21:42)
[2017-03-24] MEDS: ACETAMINOPHEN TAB 650MG DOSE (2X325MG) PO PRN (21:43)
[2017-03-25] VITALS: BP 127/60
[2017-03-25] MEDS: ALBUTEROL SULFATE 2.5 MG/0.5 ML INH NEB SOLN NEB PRN ×6 (00:33→23:09)
[2017-03-25 04:03] VITALS: BP 112/56
[2017-03-25 05:06] LABS: MEAN CORPUSCULAR HEMOGLOBIN 29.9 pg (27.0-33.0); MEAN CORPUSCULAR HGB CONC 33.3 g/dl (32.0-36.5); MEAN CORPUSCULAR VOLUME 89.7 fl (80.0-96.0); RED CELL DISTRIBUTION WIDTH 16.1 % (11.5-14.5); WHITE BLOOD COUNT 9.5 K/mm3 (4.0-10.0)
[2017-03-25 05:26] LABS: CALCIUM LEVEL 8.5 MG/DL (8.8-10.2); CREATININE FOR GFR 2.01 MG/DL (0.70-1.30); GLOMERULAR FILTRATION RATE 34.7 (>42); POTASSIUM SERUM 4.4 MEQ/L (3.5-5.1)
[2017-03-25] MEDS: HEPARIN SOD (PORCINE) 5000 UNITS/ML VIAL SC SCH ×2 (06:14→13:41)
[2017-03-25] MEDS: HumaLOG INSULIN (NovoLOG) PER UNIT SC SCH ×4 (07:49→21:35)
[2017-03-25 08:00] VITALS: BP 135/62
[2017-03-25] MEDS: ADVAIR DISKUS 500/50 INH PWD INH SCH ×2 (08:08→21:02)
[2017-03-25] MEDS: FUROSEMIDE 20 MG TAB PO SCH ×2 (08:45→17:28)
[2017-03-25] MEDS: SERTRALINE HCL 50 MG TAB PO SCH (08:45)
[2017-03-25] MEDS: ASPIRIN 81 MG ENTERIC TAB PO SCH (08:45)
[2017-03-25] MEDS: POLYVINYL ALCOHOL OPHTH SOLN 15 ML(LIQUITEARS) OU SCH ×2 (08:46→21:35)
[2017-03-25] MEDS: predniSONE 20 MG TAB PO SCH (08:46)
[2017-03-25] MEDS: ACETAMINOPHEN TAB 650MG DOSE (2X325MG) PO PRN ×3 (08:49→23:20)
--- NOTE | 2017-03-25 08:52 | IPNPDOC ---
Subjective Date Seen The patient was seen on 03/25/17. Subjective Chief Complaint/HPI The patient is a 72-year-old male admitted with a reason for visit of Copd With Exacerbation. Events since last encounter Pt states he is feeling better today but still with SOB and wheezing. Denies CP /Palp. Denies Abd pain. Constitutional: Denies: Chills, Fever Pulmonary: Reports: Dyspnea Cardiovascular: Denies: Chest Pain, Palpitations Gastrointestinal: Denies: Nausea, Vomiting, Abdominal Pain Objective Physical Examination General Exam: Positive: Alert, No Acute Distress ENT Exam: Positive: Atraumatic Neck Exam: Positive: Supple, Negative: JVD Chest Exam: Positive: Wheezing Heart Exam: Positive: Rate Normal, Regular Rhythm Telemetry: Positive: Atrial fibrillation Abdomen Exam: Positive: Normal bowel sounds, Soft, Negative: Tenderness Extremity Exam: Negative: Edema Assessment /Plan Problems (1) COPD with exacerbation Status: Acute Problem Text: On Zithromax. On Prednisone. Received Solumedrol in the ER. Getting Nebs. Chest CT: "Emphysematous and fibrotic changes without acute infiltrate or other acute finding in the lungs. Minimally prominent precarinal lymph node 11 mm in short axis is of doubtful significance. New sclerotic lesion T7 vertebral body posteriorly on the left could potentially represent a metastatic lesion." ?further imaging for potential T7 vertebral body lesion - D/W attending. Will add ceftriaxone. MRI of T spine (2) DM2 (diabetes mellitus, type 2) Status: Chronic Problem Specific Plan: Monitor Clinically, Repeat Labs Problem Text: On Levemir and SSI. (3) HTN (hypertension) Status: Chronic Problem Text: On Zebeta, Lisinopril, and Lasix. (4) PAD (peripheral artery disease) Status: Chronic Problem Specific Plan: Monitor Clinically Problem Text: On Aspirin (5) CAD (coronary artery disease) Status: Chronic Problem Specific Plan: Monitor Clinically Problem Text: On Aspirin and Crestor. (6) CKD (chronic kidney disease), stage III Status: Chronic Problem Specific Plan: Monitor Clinically, Repeat Labs Problem Text: Creat 2.01 (1.97 yesterday). Baseline creat appears to be around 1.6-1.8. (7) Paroxysmal atrial fibrillation Problem Text: Pt is being monitored on telemetry and has been going in and out of AFib. Rate controlled on Zebeta. D/W attending. Will need stroke prophylaxis. start Eliquis 5bid Plan/VTE VTE Prophylaxis Ordered?: Yes (Heparin) VS, I&O, 24H, Fishbone Vital Signs/I&O Vital Signs Date Time Temp Pulse Resp B/P (MAP) Pulse Ox O2 Delivery O2 Flow Rate FiO2 03/25/17 08:00 Nasal Cannula 1.0 03/25/17 04:03 98.8 75 22 112/56 (74) 97 I&O- Last 24 Hours up to 6 AM 03/25/17 06:00 Intake Total 1800 ml Output Total 2500 ml Balance -700 ml Laboratory Data 24H LABS Laboratory Tests 2 03/24/17 09:33: White Blood Count 7.2, Red Blood Count 4.20L, Hemoglobin 12.4L, Hematocrit 39.1L , Mean Corpuscular Volume 93.2, Mean Corpuscular Hemoglobin 29.6, Mean Corpuscular Hemoglobin Concent 31.7L, Red Cell Distribution Width 15.8H, Platelet Count 248, Neutrophils (%) (Auto) 81.6H, Lymphocytes (%) (Auto) 9.6L, Monocytes (%) (Auto) 5.1H, Eosinophils (%) (Auto) 2.3, Basophils (%) (Auto) 0.3 , Neutrophils # (Auto) 5.8, Lymphocytes # (Auto) 0.7L, Monocytes # (Auto) 0.4, Eosinophils # (Auto) 0.2, Basophils # (Auto) 0.0, Large Unclassified Cells % 1.1 , Large Unclassified Cells # 0.1, B-Type Natriuretic Peptide 250H 03/24/17 09:47: Blood Gas Bicarbonate Standard 22.6, Arterial Blood pH 7.386, Arterial Blood Partial Pressure CO2 38.2, Arterial Blood Partial Pressure O2 110.0H, Arterial Blood Total CO2 23.6, Arterial Blood HCO3 22.4, Arterial Blood Base Excess -2.3L , Arterial Blood Oxygen Saturation 97.9 03/24/17 10:11: Anion Gap 9, Glomerular Filtration Rate 35.6L, Calcium Level 8.4L, Aspartate Amino Transf (AST/SGOT) 14L, Alanine Aminotransferase (ALT/SGPT) 22, Alkaline Phosphatase 38L, Total Bilirubin 0.4, Direct Bilirubin 0.1, Total Creatine Kinase 103, Creatine Kinase MB 2.8, Creatine Kinase MB Relative Index 2.71, Troponin I < 0.02, Total Protein 6.9, Albumin 3.1L, Albumin/Globulin Ratio 0.82L , Thyroid Stimulating Hormone (TSH) 0.664 03/24/17 15:57: Bedside Glucose (Misc Panel) 495H 03/24/17 18:52: Bedside Glucose (Misc Panel) 412H 03/24/17 20:13: Bedside Glucose (Misc Panel) 387H 03/25/17 04:33: Anion Gap 8, Glomerular Filtration Rate 34.7L, Blood Urea Nitrogen 65H, Creatinine 2.01H, Sodium Level 137, Potassium Level 4.4, Chloride Level 102, Carbon Dioxide Level 27, Calcium Level 8.5L CBC/BMP Laboratory Tests 03/24/17 09:33 Red Blood Count 4.20 L, Mean Corpuscular Volume 93.2, Mean Corpuscular Hemoglobin 29.6, Mean Corpuscular Hemoglobin Concent 31.7 L, Red Cell Distribution Width 15.8 H, Neutrophils (%) (Auto) 81.6 H, Lymphocytes (%) (Auto ) 9.6 L, Monocytes (%) (Auto) 5.1 H, Eosinophils (%) (Auto) 2.3, Basophils (%) ( Auto) 0.3, Neutrophils # (Auto) 5.8, Lymphocytes # (Auto) 0.7 L, Monocytes # ( Auto) 0.4, Eosinophils # (Auto) 0.2, Basophils # (Auto) 0.0 03/24/17 10:11 03/25/17 04:33 Red Blood Count 3.78 L, Mean Corpuscular Volume 89.7, Mean Corpuscular Hemoglobin 29.9, Mean Corpuscular Hemoglobin Concent 33.3, Red Cell Distribution Width 16.1 H, Calcium Level 8.5 L Microbiology Microbiology 03/24/17 Blood Culture, Received Pending 03/24/17 Blood Culture, Received Pending 03/24/17 Respiratory Virus Panel (PCR) ([facility]) - Final, Complete Attending Note Attending Note Will start Eliquis due to Paroxysmal Afib; will image T spine to further eval sclerotic T7 lesion, check PSA. Ceftriaxone added. Esteban Harrell March 25, 2017 08:52 Mark Tripp MD March 25, 2017 14:49
[2017-03-25] MEDS: FINASTERIDE 5 MG TAB PO SCH (11:53)
[2017-03-25] MEDS: OMEPRAZOLE 20 MG CAP PO SCH (11:53)
[2017-03-25 11:54] VITALS: BP 158/70
[2017-03-25] MEDS: LISINOPRIL 10 MG TAB PO SCH ×2 (11:55→21:34)
[2017-03-25] MEDS: BISOPROLOL FUMARATE 5 MG TAB PO SCH (11:56)
[2017-03-25 15:00] VITALS: BP 150/66
[2017-03-25] MEDS: cefTRIAXone SOD 1 GM in D5W MINI-BAG PLUS 50 ML IV SCH (17:29)
[2017-03-25 20:00] VITALS: BP 138/66
--- NOTE | 2017-03-25 20:05 | ECGEPIP ---
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
[2017-03-25] MEDS: TAMSULOSIN 0.4 MG CAP PO SCH (21:34)
[2017-03-25] MEDS: ROSUVASTATIN 10 MG TAB (CRESTOR) PO SCH (21:34)
[2017-03-25] MEDS: AZITHROMYCIN 250 MG TAB PO SCH (21:34)
[2017-03-25] MEDS: APIXABAN 5 MG TAB (ELIQUIS) PO SCH (21:34)
[2017-03-25] MEDS: LATANOPROST 0.005% OPHTH SOLN 2.5 ML OU SCH (21:35)
[2017-03-25] MEDS: LEVEMIR (INSULIN DETEMIR) 1 UNITS/0.01ML SC SCH (21:35)
[2017-03-26] VITALS: BP 155/71
[2017-03-26] MEDS: ALBUTEROL SULFATE 2.5 MG/0.5 ML INH NEB SOLN NEB PRN ×5 (04:07→23:23)
[2017-03-26 04:34] VITALS: BP 118/60
[2017-03-26 05:14] LABS: MEAN CORPUSCULAR HEMOGLOBIN 29.3 pg (27.0-33.0); MEAN CORPUSCULAR HGB CONC 32.4 g/dl (32.0-36.5); MEAN CORPUSCULAR VOLUME 90.6 fl (80.0-96.0); RED CELL DISTRIBUTION WIDTH 15.8 % (11.5-14.5); WHITE BLOOD COUNT 9.8 K/mm3 (4.0-10.0)
[2017-03-26 05:27] LABS: CALCIUM LEVEL 8.6 MG/DL (8.8-10.2); CREATININE FOR GFR 1.83 MG/DL (0.70-1.30); GLOMERULAR FILTRATION RATE 38.7 (>42)
[2017-03-26 07:15] VITALS: BP 146/67
[2017-03-26] MEDS: APIXABAN 5 MG TAB (ELIQUIS) PO SCH ×2 (08:25→20:57)
[2017-03-26] MEDS: FUROSEMIDE 20 MG TAB PO SCH ×2 (08:25→17:05)
[2017-03-26] MEDS: SERTRALINE HCL 50 MG TAB PO SCH (08:25)
[2017-03-26] MEDS: predniSONE 20 MG TAB PO SCH (08:25)
[2017-03-26] MEDS: ASPIRIN 81 MG ENTERIC TAB PO SCH (08:25)
[2017-03-26] MEDS: HumaLOG INSULIN (NovoLOG) PER UNIT SC SCH ×4 (08:26→20:59)
[2017-03-26] MEDS: POLYVINYL ALCOHOL OPHTH SOLN 15 ML(LIQUITEARS) OU SCH ×2 (08:26→21:00)
[2017-03-26] MEDS: ADVAIR DISKUS 500/50 INH PWD INH SCH ×2 (08:28→20:15)
--- NOTE | 2017-03-26 08:41 | IPNPDOC ---
Subjective Date Seen The patient was seen on 03/26/17. Subjective Chief Complaint/HPI The patient is a 72-year-old male admitted with a reason for visit of Copd With Exacerbation. Events since last encounter Pt states he is still SOB and coughing but feels he is slowly improving. Denies CP, Abd pain. Constitutional: Denies: Chills, Fever Pulmonary: Reports: Dyspnea, Cough Cardiovascular: Denies: Chest Pain Gastrointestinal: Denies: Nausea, Vomiting, Abdominal Pain Objective Physical Examination General Exam: Positive: Alert, No Acute Distress ENT Exam: Positive: Atraumatic Neck Exam: Positive: Supple, Negative: JVD Chest Exam: Positive: Wheezing Heart Exam: Positive: Rate Normal, Regular Rhythm Telemetry: Positive: Atrial fibrillation Abdomen Exam: Positive: Normal bowel sounds, Soft, Negative: Tenderness Extremity Exam: Negative: Edema Assessment /Plan Problems (1) COPD with exacerbation Status: Acute Problem Text: 03/26 - On Zithro and Prednisone. Nebs. 03/25 - On Zithromax. On Prednisone. Received Solumedrol in the ER. Getting Nebs. Chest CT: "Emphysematous and fibrotic changes without acute infiltrate or other acute finding in the lungs. Minimally prominent precarinal lymph node 11 mm in short axis is of doubtful significance. New sclerotic lesion T7 vertebral body posteriorly on the left could potentially represent a metastatic lesion." ?further imaging for potential T7 vertebral body lesion - D/W attending. Will add ceftriaxone. MRI of T spine (2) DM2 (diabetes mellitus, type 2) Status: Chronic Problem Specific Plan: Monitor Clinically, Repeat Labs Problem Text: On Levemir and SSI. (3) HTN (hypertension) Status: Chronic Problem Text: On Zebeta, Lisinopril, and Lasix. (4) PAD (peripheral artery disease) Status: Chronic Problem Specific Plan: Monitor Clinically Problem Text: On Aspirin (5) CAD (coronary artery disease) Status: Chronic Problem Specific Plan: Monitor Clinically Problem Text: On Aspirin and Crestor. (6) CKD (chronic kidney disease), stage III Status: Chronic Problem Specific Plan: Monitor Clinically, Repeat Labs Problem Text: 03/26 - Creat 1.83 03/25 - Creat 2.01 (1.97 yesterday). Baseline creat appears to be around 1.6- 1.8. (7) Paroxysmal atrial fibrillation Problem Text: Pt is being monitored on telemetry and has been going in and out of AFib. Rate controlled on Zebeta. D/W attending. Will need stroke prophylaxis. start Eliquis 5bid (8) Abnormal CT scan Problem Text: 03/26 - Chest CT notes "New sclerotic lesion T7 vertebral body posteriorly on the left could potentially represent a metastatic lesion." Also shows emphysematous changes and 11 mm hilar node of "doubtful significance" MRI was ordered and results..Report shows benign bone island. Plan/VTE VTE Prophylaxis Ordered?: Yes (Heparin) Plan Anticipated Discharge: Transfer (to med surg.) VS, I&O, 24H, Fishbone Vital Signs/I&O Vital Signs Date Time Temp Pulse Resp B/P (MAP) Pulse Ox O2 Delivery O2 Flow Rate FiO2 03/26/17 07:45 Room Air 03/26/17 07:15 98.4 59 22 146/67 (93) 93 03/25/17 08:00 1.0 I&O- Last 24 Hours up to 6 AM 03/26/17 06:00 Intake Total 1678 ml Output Total 1450 ml Balance 228 ml Laboratory Data 24H LABS Laboratory Tests 2 03/25/17 11:39: Bedside Glucose (Misc Panel) 340H 03/25/17 17:22: Bedside Glucose (Misc Panel) 293H 03/25/17 21:13: Bedside Glucose (Misc Panel) 343H 03/26/17 04:38: Anion Gap 8, Glomerular Filtration Rate 38.7L, Blood Urea Nitrogen 66H, Creatinine 1.83H, Sodium Level 136, Potassium Level 4.0, Chloride Level 102, Carbon Dioxide Level 26, Calcium Level 8.6L CBC/BMP Laboratory Tests 03/26/17 04:38 Red Blood Count 3.98 L, Mean Corpuscular Volume 90.6, Mean Corpuscular Hemoglobin 29.3, Mean Corpuscular Hemoglobin Concent 32.4, Red Cell Distribution Width 15.8 H, Calcium Level 8.6 L Microbiology Microbiology 03/24/17 Blood Culture - Preliminary, Resulted No growth after 24 hours . All specim... 03/24/17 Blood Culture - Preliminary, Resulted No growth after 24 hours . All specim... 03/24/17 Respiratory Virus Panel (PCR) ([facility]) - Final, Complete Esteban Harrell RPA-C March 26, 2017 08:41 Mark Tripp MD March 26, 2017 14:56
--- NOTE | 2017-03-26 10:07 | REP ---
MRI THORACIC SPINE WITHOUT CONTRAST FOLLOWED BY WITH CONTRAST: HISTORY: T7 sclerotic lesion. COMPARISON: Comparison chest CT study March 24, 2017. Comparison is also made with chest CT study from March 14, 2010. Chest CT study shows a endosteal 11 mm sclerotic lesion in the left posterolateral T7 vertebral body. TECHNIQUE: Sagittal and axial T1 and T2-weighted scans are acquired in the usual fashion with and without fat saturation. Sequences include spin echo, turbo spin-echo, and STIR imaging sequences. The gadolinium enhancement dose is 7 ml of intravenous ProHance, half-dose protocol in this patient with a EGFR 34.7 mL/minute. MRI FINDINGS: Vertebral body heights are preserved and alignment is normal. In the thoracic spine, the sclerotic lesions seen on CT is well visualized on MR showing low T1 and low T2 signal intensity. It is actually in the T6 vertebral body according to level labeling on today's study. Post gadolinium enhanced images show no evidence of gadolinium enhancement. The lesion is felt to be compatible with a benign bone island. On my review of the 2009 prior study, there is 85 mm sclerotic area in this region of the thoracic vertebra. No other abnormal skeletal lesion is seen. No fracture or collapse is seen. The thoracic cord is normal in coarse caliber and signal intensity. No other abnormal gadolinium enhancement is seen. The conus medullaris is normal in position and appearance at T12-L1. IMPRESSION: Findings consistent with benign bone island on the left side in the T6 vertebral body. No abnormal gadolinium enhancement is seen. No suspicious abnormality. Signed by Ervin Lucio MD 03/26/2017 12:59 P
[2017-03-26] MEDS: OMEPRAZOLE 20 MG CAP PO SCH (11:36)
[2017-03-26] MEDS: LISINOPRIL 10 MG TAB PO SCH ×2 (11:36→20:58)
[2017-03-26] MEDS: FINASTERIDE 5 MG TAB PO SCH (11:36)
[2017-03-26] MEDS: BISOPROLOL FUMARATE 5 MG TAB PO SCH (11:36)
[2017-03-26 12:00] VITALS: BP 140/64
[2017-03-26 14:12] VITALS: BP 137/65
[2017-03-26] MEDS: cefTRIAXone SOD 1 GM in D5W MINI-BAG PLUS 50 ML IV SCH (14:36)
[2017-03-26] MEDS ORDERED: ELIQ5TAB PO (15:11)
[2017-03-26] MEDS: ROSUVASTATIN 10 MG TAB (CRESTOR) PO SCH (20:57)
[2017-03-26] MEDS: TAMSULOSIN 0.4 MG CAP PO SCH (20:58)
[2017-03-26] MEDS: AZITHROMYCIN 250 MG TAB PO SCH (20:58)
[2017-03-26] MEDS: LEVEMIR (INSULIN DETEMIR) 1 UNITS/0.01ML SC SCH (20:59)
[2017-03-26] MEDS: LATANOPROST 0.005% OPHTH SOLN 2.5 ML OU SCH (21:00)
[2017-03-26 22:00] VITALS: BP_SYST 155; BP_SYST 160; BP_DIAS 73; BP_DIAS 84
[2017-03-27] MEDS: ALBUTEROL SULFATE 2.5 MG/0.5 ML INH NEB SOLN NEB PRN ×4 (03:37→19:18)
[2017-03-27 06:00] VITALS: BP 166/74
[2017-03-27 06:58] LABS: MEAN CORPUSCULAR HGB CONC 33.9 g/dl (32.0-36.5); MEAN CORPUSCULAR VOLUME 88.7 fl (80.0-96.0); WHITE BLOOD COUNT 8.2 K/mm3 (4.0-10.0)
[2017-03-27 07:14] LABS: CALCIUM LEVEL 8.9 MG/DL (8.8-10.2); CREATININE FOR GFR 1.74 MG/DL (0.70-1.30)
[2017-03-27] MEDS: HumaLOG INSULIN (NovoLOG) PER UNIT SC SCH ×4 (07:30→21:37)
[2017-03-27] MEDS: ADVAIR DISKUS 500/50 INH PWD INH SCH ×2 (07:36→19:18)
[2017-03-27] MEDS: SERTRALINE HCL 50 MG TAB PO SCH (08:41)
[2017-03-27] MEDS: APIXABAN 5 MG TAB (ELIQUIS) PO SCH ×2 (08:41→21:39)
[2017-03-27] MEDS: ASPIRIN 81 MG ENTERIC TAB PO SCH (08:42)
[2017-03-27] MEDS: predniSONE 20 MG TAB PO SCH (08:42)
[2017-03-27] MEDS: POLYVINYL ALCOHOL OPHTH SOLN 15 ML(LIQUITEARS) OU SCH ×2 (08:42→21:40)
[2017-03-27] MEDS: FUROSEMIDE 20 MG TAB PO SCH ×2 (08:42→17:03)
--- NOTE | 2017-03-27 10:05 | ECGEPIP ---
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
--- NOTE | 2017-03-27 11:59 | IPNPDOC ---
Subjective Date Seen The patient was seen on 03/27/17. Subjective Chief Complaint/HPI The patient is a 72-year-old male admitted with a reason for visit of Copd With Exacerbation. Events since last encounter Continues with wheezing and dyspnea. Tolerating po well. Constitutional: Denies: Chills, Fever, Night Sweats ENT: Denies: Head Aches, Ear Pain, Dysphagia Skin: Denies: Rash, Lesions, Breakdown Pulmonary: Reports: Dyspnea, Cough Cardiovascular: Denies: Chest Pain, Palpitations, Orthopnea, Paroxysmal Noc. Dyspnea, Lt Headedness Gastrointestinal: Denies: Nausea, Vomiting, Abdominal Pain, Diarrhea, Constipation, Melena, Hematochezia, Other Symptoms Genitourinary: Denies: Dysuria, Frequency, Incontinence, Retention Objective Physical Examination General Exam: Positive: Alert, No Acute Distress ENT Exam: Positive: Atraumatic Neck Exam: Positive: Supple, Negative: JVD Chest Exam: Positive: Wheezing (throughout, but improved today compared to yesterday (JR)) Heart Exam: Positive: Rate Normal, Regular Rhythm Telemetry: Positive: Atrial fibrillation Abdomen Exam: Positive: Normal bowel sounds, Soft, Negative: Tenderness Extremity Exam: Negative: Edema Assessment /Plan Problems (1) COPD with exacerbation Status: Acute Problem Text: 03/27/2017: continue Zithro and Prednisone. COntinue neb txs. 03/26 - On Zithro and Prednisone. Nebs. 03/25 - On Zithromax. On Prednisone. Received Solumedrol in the ER. Getting Nebs. Chest CT: "Emphysematous and fibrotic changes without acute infiltrate or other acute finding in the lungs. Minimally prominent precarinal lymph node 11 mm in short axis is of doubtful significance. New sclerotic lesion T7 vertebral body posteriorly on the left could potentially represent a metastatic lesion." ?further imaging for potential T7 vertebral body lesion. MRI: negative (2) DM2 (diabetes mellitus, type 2) Status: Chronic Problem Specific Plan: Monitor Clinically, Repeat Labs Problem Text: On Levemir and SSI. (3) HTN (hypertension) Status: Chronic Problem Text: On Zebeta, Lisinopril, and Lasix. (4) PAD (peripheral artery disease) Status: Chronic Problem Specific Plan: Monitor Clinically Problem Text: On Aspirin (5) CAD (coronary artery disease) Status: Chronic Problem Specific Plan: Monitor Clinically Problem Text: On Aspirin and Crestor. (6) CKD (chronic kidney disease), stage III Status: Chronic Problem Specific Plan: Monitor Clinically, Repeat Labs Problem Text: 03/26 - Creat 1.83 03/25 - Creat 2.01 (1.97 yesterday). Baseline creat appears to be around 1.6- 1.8. (7) Paroxysmal atrial fibrillation Problem Text: Pt is being monitored on telemetry and has been going in and out of AFib. Rate controlled on Zebeta. D/W attending. Will need stroke prophylaxis. start Eliquis 5bid (8) Abnormal CT scan Problem Text: 03/26 - Chest CT notes "New sclerotic lesion T7 vertebral body posteriorly on the left could potentially represent a metastatic lesion." Also shows emphysematous changes and 11 mm hilar node of "doubtful significance" MRI was ordered and Report shows benign bone island. Plan/VTE VTE Prophylaxis Ordered?: Yes (Heparin) Plan Anticipated Discharge: Transfer (to med surg.) VS, I&O, 24H, [facility] Vital Signs/I&O Vital Signs Date Time Temp Pulse Resp B/P (MAP) Pulse Ox O2 Delivery O2 Flow Rate FiO2 03/27/17 06:00 98.4 65 17 166/74 (104) 93 Room Air 03/25/17 08:00 1.0 I&O- Last 24 Hours up to 6 AM 03/27/17 06:00 Intake Total 1440 ml Output Total 2425 ml Balance -985 ml Laboratory Data 24H LABS Laboratory Tests 2 03/26/17 16:50: Bedside Glucose (Misc Panel) 483H 03/26/17 20:39: Bedside Glucose (Misc Panel) 268H 03/27/17 06:30: Anion Gap 6L, Glomerular Filtration Rate 41.0L, Blood Urea Nitrogen 65H, Creatinine 1.74H, Sodium Level 142, Potassium Level 4.0, Chloride Level 106, Carbon Dioxide Level 30, Calcium Level 8.9 03/27/17 07:01: Bedside Glucose (Misc Panel) 86 03/27/17 11:27: Bedside Glucose (Misc Panel) 234H CBC/BMP Laboratory Tests 03/27/17 06:30 Red Blood Count 3.97 L, Mean Corpuscular Volume 88.7, Mean Corpuscular Hemoglobin 30.0, Mean Corpuscular Hemoglobin Concent 33.9, Red Cell Distribution Width 16.0 H, Calcium Level 8.9 Microbiology Microbiology 03/24/17 Blood Culture - Preliminary, Resulted No Growth after 72 hours. All specime... 03/24/17 Blood Culture - Preliminary, Resulted No Growth after 72 hours. All specime... 03/24/17 Respiratory Virus Panel (PCR) ([facility]) - Final, Complete Attending Note Attending Note Improved air flow. Fair exercise tolerance. Rhythm still irregular c/w AFIB. Will need Eliquis at discharge. Likely candidate for tomorrow. Claudia Snyder March 27, 2017 11:59 Mark Tripp MD March 27, 2017 14:54
[2017-03-27] MEDS: FINASTERIDE 5 MG TAB PO SCH (13:05)
[2017-03-27] MEDS: LISINOPRIL 10 MG TAB PO SCH ×2 (13:06→21:39)
[2017-03-27] MEDS: BISOPROLOL FUMARATE 5 MG TAB PO SCH (13:06)
[2017-03-27] MEDS: OMEPRAZOLE 20 MG CAP PO SCH (13:06)
[2017-03-27] MEDS: cefTRIAXone SOD 1 GM in D5W MINI-BAG PLUS 50 ML IV SCH (17:03)
[2017-03-27] MEDS: LEVEMIR (INSULIN DETEMIR) 1 UNITS/0.01ML SC SCH (21:37)
[2017-03-27] MEDS: TAMSULOSIN 0.4 MG CAP PO SCH (21:38)
[2017-03-27] MEDS: AZITHROMYCIN 250 MG TAB PO SCH (21:38)
[2017-03-27] MEDS: ROSUVASTATIN 10 MG TAB (CRESTOR) PO SCH (21:40)
[2017-03-27] MEDS: LATANOPROST 0.005% OPHTH SOLN 2.5 ML OU SCH (21:40)
[2017-03-27 22:00] VITALS: BP 167/72
[2017-03-28] MEDS: ALBUTEROL SULFATE 2.5 MG/0.5 ML INH NEB SOLN NEB PRN ×3 (01:16→12:06)
[2017-03-28 06:00] VITALS: BP 162/74
[2017-03-28 06:40] LABS: MEAN CORPUSCULAR HEMOGLOBIN 29.7 pg (27.0-33.0); RED CELL DISTRIBUTION WIDTH 15.8 % (11.5-14.5); WHITE BLOOD COUNT 8.2 K/mm3 (4.0-10.0)
[2017-03-28 07:03] LABS: CALCIUM LEVEL 8.5 MG/DL (8.8-10.2); CREATININE FOR GFR 1.5 MG/DL (0.70-1.30); GLOMERULAR FILTRATION RATE 48.7 (>42); POTASSIUM SERUM 3.7 MEQ/L (3.5-5.1)
[2017-03-28] MEDS: HumaLOG INSULIN (NovoLOG) PER UNIT SC SCH ×2 (07:30→12:56)
[2017-03-28] MEDS: ADVAIR DISKUS 500/50 INH PWD INH SCH (08:31)
[2017-03-28] MEDS: ASPIRIN 81 MG ENTERIC TAB PO SCH (08:56)
[2017-03-28] MEDS: FUROSEMIDE 20 MG TAB PO SCH (08:56)
[2017-03-28] MEDS: APIXABAN 5 MG TAB (ELIQUIS) PO SCH (08:56)
[2017-03-28] MEDS: SERTRALINE HCL 50 MG TAB PO SCH (08:56)
[2017-03-28] MEDS: POLYVINYL ALCOHOL OPHTH SOLN 15 ML(LIQUITEARS) OU SCH (08:57)
[2017-03-28] MEDS: predniSONE 20 MG TAB PO SCH (08:57)
[2017-03-28 12:56] VITALS: BP 162/74
[2017-03-28] MEDS: LISINOPRIL 10 MG TAB PO SCH (12:56)
[2017-03-28] MEDS: BISOPROLOL FUMARATE 5 MG TAB PO SCH (12:56)
[2017-03-28] MEDS: FINASTERIDE 5 MG TAB PO SCH (12:56)
[2017-03-28] MEDS: OMEPRAZOLE 20 MG CAP PO SCH (12:56)
[2017-03-28 14:00] VITALS: BP 162/72
[2017-03-28] MEDS ORDERED: PRED20TA PO (14:16)
[2017-03-28] MEDS ORDERED: AZIT25TA PO (14:16)
--- NOTE | 2017-04-14 14:06 | DS.PDOC ---
Discharge Summary General Date of Admission March 24, 2017 Date of Discharge March 28, 2017 Primary Care Physician: ZOEY GILBERT PA-C Attending Physician: EZIO ROJAS DO Discharge Summary PROCEDURES PERFORMED DURING STAY: [None]. ADMITTING DIAGNOSES: 1. Acute respiratory distress secondary to chronic obstructive pulmonary disease (COPD) exacerbation 2. Type 2 diabetes. 3. Anxiety and depression 4. History of coronary artery disease status post coronary artery bypass graft (CABG) times five 5. Peripheral artery disease. 6. Paroxysmal atrial fibrillation 7. First degree heart block (chronic) 8. Hypertension. Continue home medications. 9. Dyslipidemia. Continue home medications. 10. Chronic kidney disease, stage III 11. Benign prostatic hypertrophy (BPH) DISCHARGE DIAGNOSES: 1. Acute respiratory distress secondary to chronic obstructive pulmonary disease (COPD) exacerbation 2. Type 2 diabetes. 3. Anxiety and depression 4. History of coronary artery disease status post coronary artery bypass graft (CABG) times five 5. Peripheral artery disease. 6. Paroxysmal atrial fibrillation 7. First degree heart block (chronic) 8. Hypertension. Continue home medications. 9. Dyslipidemia. Continue home medications. 10. Chronic kidney disease, stage III 11. Benign prostatic hypertrophy (BPH) 12. Peripheral arterial disease 13. Abnormal chest CT COMPLICATIONS/CHIEF COMPLAINT: Copd With Exacerbation. HISTORY OF PRESENT ILLNESS: The patient is a 72-year-old male with a past medical history significant for chronic obstructive pulmonary disease (COPD), type 2 diabetes, coronary artery disease, peripheral artery disease, paroxysmal atrial fibrillation, hypertension, and chronic kidney disease (CKD) who presented to [facility] on 03/24/2017 for worsening shortness of breath. The patient stated that for the past few days he has increased shortness of breath and started experiencing a sore throat. He also feels that there is some chest tightness. He could not bring any sputum up and denies any increased cough. HOSPITAL COURSE: Patient was admitted to [facility] and treated with nebulizers, steroids, and O2, as well as cetriaxone and azithromycin. Chest CT showed a potentially-concerning bony lesion of T7, which was found to be a bone island on follow up MRI. (This MRI did feel that the radiographic abnormality was at T6, not T7.)Patient did clinically improve. On 03/28/2017, patient was maintaining his saturations on room air and was breathing easily. He was discharged to home, with follow up in office. DISCHARGE MEDICATIONS: Please see below. ALLERGIES: Please see below. PHYSICAL EXAMINATION ON DISCHARGE: VITAL SIGNS: Please see below. GENERAL: no acute distress HEENT: mucous membranes moist NECK: supple CARDIOVASCULAR EXAMINATION: regular rate and rhythm RESPIRATORY EXAMINATION: clear, no accessory muscle use ABDOMINAL EXAMINATION: soft, nontender/nondistended EXTREMITIES: no edema SKIN: without rash LABORATORY DATA: Please see below. IMAGING: CXR 03/24/2017: Stable chronic findings with no definite superimposed acute infiltrate Chest CT 03/24/2017: Emphysematous and fibrotic changes without acute infiltrate or other acute finding in the lungs. Minimally prominent precarinal lymph node 11 mm in short axis is of doubtful significance. New sclerotic lesion T7 vertebral body posteriorly on the left could potentially represent a metastatic lesion. Thoracic spine MRI 04/04/2017: Findings consistent with benign bone island on the left side in the T6 vertebral body. No abnormal gadolinium enhancement is seen. No suspicious abnormality. PROGNOSIS: good ACTIVITY: As tolerated DIET: consistent carb DISCHARGE PLAN: home DISPOSITION: 01 Home, Self-Care. DISCHARGE INSTRUCTIONS: Take all medications as prescribed. Seek urgent medical care for worsening shortness of breath, chest discomfort. Call the office with with any concerns. Follow up with Zoey Gilbert as scheduled. ITEMS TO FOLLOWUP ON ON OUTPATIENT: COPD DISCHARGE CONDITION: [Stable]. TIME SPENT ON DISCHARGE: Greater than 15 minutes. Discharge Medications Scheduled Albuterol/Ipratropium (Combivent Respimat 20-100 Mcg/Act) 1 Aer Aer, 1 PUFF INH QID, (Reported) Apixaban Base (Eliquis) 5 Mg Tab, 5 MG PO BID Artificial Tears (Artificial Tears) 1.4 % Sudhir, 1 DROP OU BID, (Reported) Aspirin (Aspirin 81) 81 Mg Tab, 81 MG PO DAILY, (Reported) Azithromycin (Azithromycin) 250 Mg Tab, 250 MG PO QHS Bisoprolol Fumarate (Bisoprolol Fumarate) 5 Mg Tab, 5 MG PO DAILY, (Reported) TAKES AT NOON Fenofibrate (Fenofibrate) 160 Mg Tab, 160 MG PO DAILY, (Reported) TAKES AT NOON Finasteride (Proscar) 5 Mg Tab, 5 MG PO DAILY, (Reported) TAKES AT NOON Fish Oil (Fish Oil) 1,000 Mg Cap, 1,000 MG PO BID, (Reported) Furosemide (Furosemide) 40 Mg Tab, 20 MG PO BID, (Reported) Insulin Glargine (Lantus) 1 Units/0.01 Ml Susp, 22 UNITS SC QHS, (Reported) Insulin Human Lispro (Humalog) 1 Units/0.01 Ml Inj, 1 DOSE SC ACHS, (Reported) PER SLIDING SCALE Latanoprost (Latanoprost) 50 Drop/2.5 Ml Soln, 1 DROP OU QHS, (Reported) Lisinopril (Lisinopril) 10 Mg Tab, 10 MG PO BID, (Reported) TAKES NOON AND BEDTIME Omeprazole (Prilosec) 20 Mg Cap, 20 MG PO DAILY, (Reported) TAKES AT NOON Prednisone (Prednisone) 20 Mg Tab, 20 MG PO DAILY Take 2 pills PO for 2 days, then 1 pill PO for 3 days, then 1/2 pill PO for 2 days Rosuvastatin (Crestor) 10 Mg Tab, 10 MG PO QHS, (Reported) Salmeterol/Fluticasone (Advair Diskus 500-50 Mcg/Dose) 28 Puff/Inhaler Aerp, 1 PUFF INH BID, (Reported) Sertraline Hcl (Zoloft) 50 Mg Tab, 50 MG PO DAILY, (Reported) Tamsulosin Hydrochloride (Flomax) 0.4 Mg Cap, 0.4 MG PO QHS, (Reported) Vitamin D (Drisdol) 50,000 Unit Cap, 50,000 UNIT PO QWEEK, (Reported) MONDAYS Scheduled PRN Albuterol/Ipratropium (Ipratropium [place]/Albut 0.5-2.5 (3) mg/3Ml) 1 Sudhir Sudhir, 1 SUDHIR INH QID PRN for SHORTNESS OF BREATH, (Reported) Alprazolam (Xanax) 0.25 Mg Tab, 0.25 MG PO TID PRN for ANXIETY, (Reported) Allergies Coded Allergies: Sulfa Drugs (Verified Allergy, Unknown, RASH, 02/15/13) Sulfa Drugs Cross Reactors (Verified Allergy, Unknown, RASH, 02/15/13) EZIO ROJAS DO April 14, 2017 14:06
== END 2017-03-28 15:09 | disposition home or self-care (01) | DRG 192 ==
LOC: M ED 10:17 → M ED INP 15:06 → M ICU 20:05 → M PCU 03-25 14:51 → M MS5PR 03-26 16:11 → INTOOBSV 03-27 15:54 → OBSVTOIN 03-27 15:54
PROVIDERS: ADMIT Internal Medicine; ATTEND Family Medicine
DX: J44.1 Chronic obstructive pulmonary disease with (acute) exacerbation (principal); N18.3 Chronic kidney disease, stage 3 (moderate); I12.9 Hypertensive chronic kidney disease with stage 1 through stage 4 chronic kidney disease, or unspecified chronic kidney disease; I25.10 Atherosclerotic heart disease of native coronary artery without angina pectoris; E11.9 Type 2 diabetes mellitus without complications; E78.5 Hyperlipidemia, unspecified; D16.6 Benign neoplasm of vertebral column; N40.0 Benign prostatic hyperplasia without lower urinary tract symptoms; I48.0 Paroxysmal atrial fibrillation; F32.9 Major depressive disorder, single episode, unspecified; I73.9 Peripheral vascular disease, unspecified; I44.0 Atrioventricular block, first degree; F41.9 Anxiety disorder, unspecified; Z79.01 Long term (current) use of anticoagulants; Z79.82 Long term (current) use of aspirin; Z79.4 Long term (current) use of insulin; Z88.2 Allergy status to sulfonamides; Z79.899 Other long term (current) drug therapy; Z87.891 Personal history of nicotine dependence; Z95.5 Presence of coronary angioplasty implant and graft

== ENCOUNTER → 2017-04-07 | Outpatient (CLI) | payer MEDICARE ==
[~2017-04-07] MED LIST changes: +ARTI99.0 OU; +AZIT25TA PO; +BISO5TAB5 PO; +ELIQ5TAB PO; +FENO160T10 PO; +FLOM5CAP PO; +FURO40TA2 PO; +IPRASOL4 INH; +LATA5OPD OU; +PRED20TA PO; +PRED50TA PO
--- NOTE | 2017-04-07 08:59 | REP ---
Clinical: Chronic obstructive pulmonary disease. Technique: PA and lateral. Comparison: 03/24/2017. Findings: Diffuse chronic interstitial changes are compatible with history of COPD. Chronic elevation and blunting of the left diaphragmatic surface and associated left pleuroparenchymal changes remain relatively stable. No obvious acute consolidation, effusion, or pneumothorax. The patient is status post sternotomy and CABG. Cardiac silhouette is normal in size and without evidence for cardiomegaly. Impression: Chronic-appearing changes. No obvious acute cardiopulmonary process. Signed by Roni Patel MD 04/07/2017 08:50 A
== END ==
LOC: M RAD 07:56
PROVIDERS: ATTEND Internal Medicine Pulmonary Disease
DX: J44.9 Chronic obstructive pulmonary disease, unspecified (principal); E55.9 Vitamin D deficiency, unspecified; E11.621 Type 2 diabetes mellitus with foot ulcer; D50.0 Iron deficiency anemia secondary to blood loss (chronic)

== ENCOUNTER → 2017-04-07 | Outpatient (CLI) | payer MEDICARE ==
[2017-04-07 08:44] LABS: BASO % 0.2 % (0.0-1.0); EOS # 0.1 K/mm3 (0.0-0.50); EOS % 1.4 % (0.0-3.0); LARGE UNSTAINED CELL # 0.1 K/mm3 (0.0-0.4); LARGE UNSTAINED CELL % 1.1 % (0.0-4.0); LYMPH # 1.4 K/mm3 (1.5-4.5); LYMPH % 15.7 % (24.0-44.0); MEAN CORPUSCULAR HEMOGLOBIN 29.7 pg (27.0-33.0); MEAN CORPUSCULAR VOLUME 89.8 fl (80.0-96.0); MONO # 0.5 K/mm3 (0.0-0.8); MONO % 6.6 % (0.0-5.0); NEUTROPHILS % 74.9 % (36.0-66.0); PLATELET COUNT, AUTOMATED 249 k/mm3 (150-450); RED CELL DISTRIBUTION WIDTH 15.7 % (11.5-14.5); WHITE BLOOD COUNT 8.1 K/mm3 (4.0-10.0)
[2017-04-07 09:07] LABS: ALBUMIN 3.4 GM/DL (3.2-5.2); ALBUMIN/GLOBULIN RATIO 0.94 (1.00-1.93); BILIRUBIN,TOTAL 0.5 MG/DL (0.2-1.0); CALCIUM LEVEL 8.7 MG/DL (8.8-10.2); CREATININE FOR GFR 1.77 MG/DL (0.70-1.30); GLOMERULAR FILTRATION RATE 40.2 (>42); PERCENT SATURATION 19.1 % (19.7-37.4); POTASSIUM SERUM 4.5 MEQ/L (3.5-5.1)
== END ==
LOC: M LAB 07:53
PROVIDERS: ATTEND Physician Assistant Medical
DX: E55.9 Vitamin D deficiency, unspecified (principal); E11.621 Type 2 diabetes mellitus with foot ulcer; D50.0 Iron deficiency anemia secondary to blood loss (chronic)

== ENCOUNTER → 2017-04-09 | Outpatient (REF) | payer MEDICARE | LOC: M LAB REF 10:34 | PROVIDERS: ATTEND Physician Assistant Medical | DX: E11.621 Type 2 diabetes mellitus with foot ulcer (principal); D50.0 Iron deficiency anemia secondary to blood loss (chronic); E55.9 Vitamin D deficiency, unspecified ==

== ENCOUNTER → 2017-05-04 | Outpatient (CLI) | payer MEDICARE ==
[~2017-05-04] VITALS: Ht 167.6 cm; Wt 76.2 kg
[~2017-05-04] MED LIST changes: +LIDOCAINE 2% INJ 100 MG/5 ML SDV (FOR ANES.) As Ordered ONE; +NS 1,000 ML IV ONE; +PHENYLephrine HCL 500 MCG/5 ML (100MCG/ML) SYRINGE (J2370) As Ordered ONE; +PROPOFOL 500 MG/50 ML VIAL As Ordered ONE
[2017-05-04 10:30] VITALS: BP 114/62
== END | disposition home or self-care (01) ==
LOC: M OPP 08:40
PROVIDERS: ATTEND Internal Medicine Gastroenterology
DX: Z12.11 Encounter for screening for malignant neoplasm of colon (principal); D12.4 Benign neoplasm of descending colon; D12.8 Benign neoplasm of rectum; K57.30 Diverticulosis of large intestine without perforation or abscess without bleeding; Z86.010 Personal history of colon polyps; K64.8 Other hemorrhoids; I25.10 Atherosclerotic heart disease of native coronary artery without angina pectoris; I10 Essential (primary) hypertension; E78.5 Hyperlipidemia, unspecified; E11.9 Type 2 diabetes mellitus without complications; Z86.718 Personal history of other venous thrombosis and embolism; I25.2 Old myocardial infarction; M19.90 Unspecified osteoarthritis, unspecified site; F41.9 Anxiety disorder, unspecified; J44.9 Chronic obstructive pulmonary disease, unspecified; J45.909 Unspecified asthma, uncomplicated; R06.83 Snoring; G47.30 Sleep apnea, unspecified; Z95.1 Presence of aortocoronary bypass graft; Z87.891 Personal history of nicotine dependence; Z88.2 Allergy status to sulfonamides; Z79.82 Long term (current) use of aspirin; Z79.899 Other long term (current) drug therapy; Z79.52 Long term (current) use of systemic steroids
CPT/HCPCS: 45381; 45385; 88305; J2370

== ENCOUNTER → 2017-07-07 | Outpatient (CLI) | payer MEDICARE ==
[~2017-07-07] MED LIST changes: +AZIT250T8 PO; -AZIT25TA PO; -FURO1TAB15 PO; +FURO80TA2 PO; +KEFL500C17 PO; -KEFL500C7 PO; -LIDOCAINE 2% INJ 100 MG/5 ML SDV (FOR ANES.) As Ordered ONE; -NS 1,000 ML IV ONE; -PHENYLephrine HCL 500 MCG/5 ML (100MCG/ML) SYRINGE (J2370) As Ordered ONE; -PROPOFOL 500 MG/50 ML VIAL As Ordered ONE; -TRIC145T PO; +TRIC145T22 PO
[2017-07-07 08:33] LABS: MEAN CORPUSCULAR HEMOGLOBIN 32.1 pg (27.0-33.0); MEAN CORPUSCULAR HGB CONC 34.1 g/dl (32.0-36.5); MEAN CORPUSCULAR VOLUME 94.3 fl (80.0-96.0); RED CELL DISTRIBUTION WIDTH 15.2 % (11.5-14.5)
== END ==
LOC: M LAB 07:57
PROVIDERS: ATTEND Physician Assistant Medical
DX: N18.3 Chronic kidney disease, stage 3 (moderate) (principal); D63.1 Anemia in chronic kidney disease; Z87.891 Personal history of nicotine dependence; J44.9 Chronic obstructive pulmonary disease, unspecified; E11.9 Type 2 diabetes mellitus without complications

== ENCOUNTER → 2017-10-15 | Outpatient (CLI) | payer MEDICARE ==
[2017-10-15 09:07] LABS: BASO % 0.3 % (0.0-1.0); EOS # 0.1 10^3/uL (0.0-0.50); EOS % 1.4 % (0.0-3.0); IMMATURE GRANULOCYTE % 1.4 % (0-0); LYMPH % 14.9 % (24.0-44.0); MEAN CORPUSCULAR HEMOGLOBIN 30.9 pg (27.0-33.0); MEAN CORPUSCULAR HGB CONC 32.9 g/dl (32.0-36.5); MONO # 0.7 10^3/uL (0.0-0.8); MONO % 10.3 % (0.0-5.0); NEUTROPHILS # 4.8 10^3/uL (1.8-7.7); NEUTROPHILS % 71.7 % (36.0-66.0); PLATELET COUNT, AUTOMATED 237 10^3/uL (150-450); RED CELL DISTRIBUTION WIDTH 14.3 % (11.5-14.5); WHITE BLOOD COUNT 6.6 10^3/uL (4.0-10.0)
[2017-10-15 09:27] LABS: ALBUMIN 3.6 GM/DL (3.2-5.2); ALBUMIN/GLOBULIN RATIO 1.03 (1.00-1.93); BILIRUBIN,TOTAL 0.5 MG/DL (0.2-1.0); CALCIUM LEVEL 9.3 MG/DL (8.8-10.2); CREATININE FOR GFR 1.98 MG/DL (0.70-1.30); GLOMERULAR FILTRATION RATE 35.4 (>42); POTASSIUM SERUM 4.6 MEQ/L (3.5-5.1); TOTAL PROTEIN 7.1 GM/DL (6.4-8.2)
== END ==
LOC: M LAB 08:07
PROVIDERS: ATTEND Physician Assistant Medical
DX: E78.2 Mixed hyperlipidemia (principal); N18.3 Chronic kidney disease, stage 3 (moderate); E55.9 Vitamin D deficiency, unspecified

== ENCOUNTER → 2017-10-27 | Outpatient (CLI) | payer MEDICARE | LOC: M SMT 10:38 | PROVIDERS: ATTEND Nurse Practitioner Women's Health | DX: Z12.5 Encounter for screening for malignant neoplasm of prostate (principal) | CPT/HCPCS: 36415; G0103 ==

== ENCOUNTER 2018-01-28 02:44 | Inpatient (IN) | payer MEDICARE ==
[2018-01-28 03:44] LABS: BASO % 0.3 % (0.0-1.0); EOS # 0.1 10^3/uL (0.0-0.50); EOS % 0.9 % (0.0-3.0); HEMATOCRIT 37.2 % (42.0-52.0); HEMOGLOBIN 12.1 g/dl (14.0-18.0); IMMATURE GRANULOCYTE % 0.9 % (0-3.0); LYMPH # 0.8 10^3/uL (1.5-4.5); LYMPH % 10.4 % (24.0-44.0); MEAN CORPUSCULAR HEMOGLOBIN 30.9 pg (27.0-33.0); MEAN CORPUSCULAR HGB CONC 32.5 g/dl (32.0-36.5); MEAN CORPUSCULAR VOLUME 94.9 fl (80.0-96.0); MONO # 0.7 10^3/uL (0.0-0.8); MONO % 9.2 % (0.0-5.0); NEUTROPHILS # 5.9 10^3/uL (1.8-7.7); NEUTROPHILS % 78.3 % (36.0-66.0); PLATELET COUNT, AUTOMATED 220 10^3/uL (150-450); RED BLOOD COUNT 3.92 10^6/uL (4.30-6.10); RED CELL DISTRIBUTION WIDTH 14.6 % (11.5-14.5); VENOUS BASE EXCESS -1.4 (-2.0-2.0); VENOUS HCO3 20.8 MEQ/L (23.0-27.0); VENOUS O2 SATURATION 98.2 % (60.0-80.0); VENOUS PARTIAL PRESSURE CO2 27.8 mmHg (38.0-50.0); VENOUS PARTIAL PRESSURE O2 127.8 mmHg (30.0-50.0); VENOUS PH 7.491 UNITS (7.330-7.430); VENOUS STANDARD HCO3 23.3 MEQ/L; VENOUS TOTAL CO2 21.6 MEQ/L (24.0-28.0); WHITE BLOOD COUNT 7.5 10^3/uL (4.0-10.0)
[2018-01-28] MEDS: methylPREDNISolone INJ 125 MG/2 ML VIAL (J2930) IV ×3 (03:45→21:14)
[2018-01-28] MEDS: IPRATROPIUM 0.5MG/ALBUTEROL 2.5MG INH SOL UD 3ML (DUONEB)(J7620) NEB ×7 (03:54→19:58)
[2018-01-28 04:06] LABS: ANION GAP 8 MEQ/L (8-16); BLOOD UREA NITROGEN 49 MG/DL (7-18); CALCIUM LEVEL 8.8 MG/DL (8.8-10.2); CARBON DIOXIDE LEVEL 26 MEQ/L (21-32); CHLORIDE LEVEL 107 MEQ/L (98-107); CK-MB VALUE MASS 2.9 NG/ML (0.0-3.6); CPK CREATINE PHOSPHOKINASE 77 U/L (39-308); CREATININE FOR GFR 1.82 MG/DL (0.70-1.30); GLUCOSE, FASTING 205 MG/DL (70-100); MB/CK RELATIVE INDEX 3.76 (< OR =4); POTASSIUM SERUM 4.9 MEQ/L (3.5-5.1); SODIUM LEVEL 141 MEQ/L (136-145); TROPONIN I < 0.02 NG/ML (< 0.10)
[2018-01-28 05:03] LABS: INFLUENZA A AMPLIFICATION NEGATIVE (NEGATIVE); INFLUENZA B AMPLIFICATION NEGATIVE (NEGATIVE)
[2018-01-28] MEDS: AZITHROMYCIN 250 MG TAB PO (05:27)
[2018-01-28] MEDS ORDERED: ONDANSETRON 4MG/2ML VIAL (J2405) IV (05:45)
[2018-01-28] MEDS ORDERED: BISACODYL 5 MG TAB PO (05:45)
[2018-01-28] MEDS: DOCUSATE SODIUM 100 MG CAP PO ×2 (09:14→21:13)
[2018-01-28] MEDS: SERTRALINE HCL 50 MG TAB PO (09:14)
[2018-01-28] MEDS: FERROUS SULFATE 325MG TAB PO (09:14)
[2018-01-28] MEDS: APIXABAN 5 MG TAB (ELIQUIS) PO ×2 (09:15→21:14)
[2018-01-28] MEDS: POLYVINYL ALCOHOL OPHTH SOLN 15 ML(LIQUITEARS) OU ×4 (09:15→21:16)
[2018-01-28] MEDS: ASPIRIN 81 MG ENTERIC TAB PO (09:15)
[2018-01-28] MEDS: FUROSEMIDE 20 MG TAB PO ×2 (09:15→21:00)
[2018-01-28] MEDS: ALPRAZolam 0.25 MG TAB PO (09:19)
[2018-01-28] MEDS ORDERED: GLUCAGON FOR INJ 1 MG VIAL (J1610) SC (11:45)
[2018-01-28] MEDS ORDERED: DEXTROSE 50% 50 ML SYRINGE IV (11:45)
[2018-01-28] MEDS ORDERED: GLUCOSE 4 GM CHEW TABLET PO (11:45)
[2018-01-28 11:58] LABS: BEDSIDE GLUCOSE 450 MG/DL (83-110)
[2018-01-28] MEDS: FINASTERIDE 5 MG TAB PO (12:25)
[2018-01-28] MEDS: OMEPRAZOLE 20 MG CAP PO (12:25)
[2018-01-28] MEDS: HumaLOG INSULIN (NovoLOG) PER UNIT SC ×3 (12:25→21:15)
[2018-01-28] MEDS: LISINOPRIL 10 MG TAB PO ×2 (12:26→21:14)
[2018-01-28] MEDS: BISOPROLOL FUMARATE 5 MG TAB PO (12:27)
[2018-01-28 17:14] LABS: BEDSIDE GLUCOSE 455 MG/DL (83-110)
[2018-01-28 17:14] LABS: BEDSIDE GLUCOSE 518 MG/DL (83-110)
[2018-01-28] MEDS: LevoFLOXacin IV 250 MG in APPROPRIATE DILUENT 1 EA IV (20:05)
[2018-01-28 20:34] LABS: BEDSIDE GLUCOSE 486 MG/DL (83-110)
[2018-01-28] MEDS: TAMSULOSIN 0.4 MG CAP PO (21:13)
[2018-01-28] MEDS: ROSUVASTATIN 10 MG TAB (CRESTOR) PO (21:14)
[2018-01-28] MEDS: LEVEMIR (INSULIN DETEMIR) 1 UNITS/0.01ML SC (21:15)
[2018-01-28] MEDS: ACETAMINOPHEN TAB 650MG DOSE (2X325MG) PO (21:59)
[2018-01-28] MEDS: LATANOPROST 0.005% OPHTH SOLN 2.5 ML OU (21:59)
[2018-01-29] MEDS: ALPRAZolam 0.25 MG TAB PO ×2 (01:04→20:33)
[2018-01-29] MEDS: IPRATROPIUM 0.5MG/ALBUTEROL 2.5MG INH SOL UD 3ML (DUONEB)(J7620) NEB ×6 (02:00→21:10)
[2018-01-29] MEDS: methylPREDNISolone INJ 125 MG/2 ML VIAL (J2930) IV ×3 (03:46→20:33)
[2018-01-29 05:51] LABS: BASO % 0.1 % (0.0-1.0); HEMATOCRIT 33.2 % (42.0-52.0); HEMOGLOBIN 10.8 g/dl (14.0-18.0); LYMPH # 0.6 10^3/uL (1.5-4.5); LYMPH % 4.9 % (24.0-44.0); MEAN CORPUSCULAR HEMOGLOBIN 30.4 pg (27.0-33.0); MEAN CORPUSCULAR HGB CONC 32.5 g/dl (32.0-36.5); MEAN CORPUSCULAR VOLUME 93.5 fl (80.0-96.0); MONO # 0.6 10^3/uL (0.0-0.8); MONO % 4.8 % (0.0-5.0); NEUTROPHILS # 10.3 10^3/uL (1.8-7.7); NEUTROPHILS % 89.2 % (36.0-66.0); PLATELET COUNT, AUTOMATED 209 10^3/uL (150-450); RED BLOOD COUNT 3.55 10^6/uL (4.30-6.10); RED CELL DISTRIBUTION WIDTH 14.4 % (11.5-14.5); WHITE BLOOD COUNT 11.5 10^3/uL (4.0-10.0)
[2018-01-29] MEDS ORDERED: AZITHROMYCIN INJ 500 MG, VIAL MATE ADAPTER 1 EACH in D5W 250 ML IV (06:00)
[2018-01-29 06:20] LABS: ALBUMIN/GLOBULIN RATIO 0.94 (1.00-1.93); ALKALINE PHOSPHATASE 31 U/L (45-117); ALT/SGPT 24 U/L (12-78); ANION GAP 10 MEQ/L (8-16); AST/SGOT 13 U/L (7-37); BILIRUBIN,TOTAL 0.4 MG/DL (0.2-1.0); BLOOD UREA NITROGEN 66 MG/DL (7-18); CALCIUM LEVEL 8.6 MG/DL (8.8-10.2); CARBON DIOXIDE LEVEL 24 MEQ/L (21-32); CHLORIDE LEVEL 104 MEQ/L (98-107); CREATININE FOR GFR 2.17 MG/DL (0.70-1.30); GLOMERULAR FILTRATION RATE 31.8 (>42); GLUCOSE, FASTING 256 MG/DL (70-100); POTASSIUM SERUM 4.9 MEQ/L (3.5-5.1); SODIUM LEVEL 138 MEQ/L (136-145); TOTAL PROTEIN 6.2 GM/DL (6.4-8.2)
[2018-01-29] MEDS: DOCUSATE SODIUM 100 MG CAP PO ×2 (08:00→20:33)
[2018-01-29] MEDS: ASPIRIN 81 MG ENTERIC TAB PO (08:01)
[2018-01-29] MEDS: APIXABAN 5 MG TAB (ELIQUIS) PO ×2 (08:01→20:33)
[2018-01-29] MEDS: SERTRALINE HCL 50 MG TAB PO (08:01)
[2018-01-29] MEDS: FUROSEMIDE 20 MG TAB PO (08:01)
[2018-01-29] MEDS: FERROUS SULFATE 325MG TAB PO (08:01)
[2018-01-29] MEDS: HumaLOG INSULIN (NovoLOG) PER UNIT SC ×4 (08:02→20:54)
[2018-01-29] MEDS: POLYVINYL ALCOHOL OPHTH SOLN 15 ML(LIQUITEARS) OU ×4 (08:02→20:33)
[2018-01-29] MEDS: OMEPRAZOLE 20 MG CAP PO (11:46)
[2018-01-29] MEDS: FINASTERIDE 5 MG TAB PO (11:46)
[2018-01-29] MEDS: NS 0.45% 1,000 ML IV (11:47)
[2018-01-29 11:49] LABS: BEDSIDE GLUCOSE 395 MG/DL (83-110)
[2018-01-29 17:02] LABS: BEDSIDE GLUCOSE 475 MG/DL (83-110)
[2018-01-29] MEDS: LevoFLOXacin IV 250 MG in APPROPRIATE DILUENT 1 EA IV (18:53)
[2018-01-29] MEDS: LATANOPROST 0.005% OPHTH SOLN 2.5 ML OU (20:33)
[2018-01-29] MEDS: TAMSULOSIN 0.4 MG CAP PO (20:33)
[2018-01-29] MEDS: ACETAMINOPHEN TAB 650MG DOSE (2X325MG) PO (20:33)
[2018-01-29] MEDS: ROSUVASTATIN 10 MG TAB (CRESTOR) PO (20:33)
[2018-01-29] MEDS: LEVEMIR (INSULIN DETEMIR) 1 UNITS/0.01ML SC (20:55)
[2018-01-29 22:19] LABS: BEDSIDE GLUCOSE 434 MG/DL (83-110)
[2018-01-30] MEDS: IPRATROPIUM 0.5MG/ALBUTEROL 2.5MG INH SOL UD 3ML (DUONEB)(J7620) NEB ×5 (01:30→21:26)
[2018-01-30] MEDS: NS 0.45% 1,000 ML IV ×2 (04:00→12:04)
[2018-01-30] MEDS: methylPREDNISolone INJ 125 MG/2 ML VIAL (J2930) IV ×3 (04:00→20:03)
[2018-01-30 06:30] LABS: BASO % 0.1 % (0.0-1.0); HEMATOCRIT 32.4 % (42.0-52.0); HEMOGLOBIN 10.6 g/dl (14.0-18.0); IMMATURE GRANULOCYTE % 1.6 % (0-3.0); LYMPH # 0.6 10^3/uL (1.5-4.5); LYMPH % 5.2 % (24.0-44.0); MEAN CORPUSCULAR HEMOGLOBIN 30.5 pg (27.0-33.0); MEAN CORPUSCULAR HGB CONC 32.7 g/dl (32.0-36.5); MEAN CORPUSCULAR VOLUME 93.4 fl (80.0-96.0); MONO # 0.5 10^3/uL (0.0-0.8); MONO % 3.9 % (0.0-5.0); NEUTROPHILS # 10.3 10^3/uL (1.8-7.7); NEUTROPHILS % 89.2 % (36.0-66.0); PLATELET COUNT, AUTOMATED 216 10^3/uL (150-450); RED BLOOD COUNT 3.47 10^6/uL (4.30-6.10); RED CELL DISTRIBUTION WIDTH 14.7 % (11.5-14.5); WHITE BLOOD COUNT 11.5 10^3/uL (4.0-10.0)
[2018-01-30 06:53] LABS: ALBUMIN 2.9 GM/DL (3.2-5.2); ALBUMIN/GLOBULIN RATIO 0.85 (1.00-1.93); ALKALINE PHOSPHATASE 37 U/L (45-117); ALT/SGPT 28 U/L (12-78); ANION GAP 12 MEQ/L (8-16); AST/SGOT 19 U/L (7-37); BILIRUBIN,TOTAL 0.3 MG/DL (0.2-1.0); BLOOD UREA NITROGEN 65 MG/DL (7-18); CALCIUM LEVEL 8.8 MG/DL (8.8-10.2); CARBON DIOXIDE LEVEL 21 MEQ/L (21-32); CHLORIDE LEVEL 103 MEQ/L (98-107); GLOMERULAR FILTRATION RATE 37.1 (>42); GLUCOSE, FASTING 296 MG/DL (70-100); POTASSIUM SERUM 4.7 MEQ/L (3.5-5.1); SODIUM LEVEL 136 MEQ/L (136-145); TOTAL PROTEIN 6.3 GM/DL (6.4-8.2)
[2018-01-30] MEDS: DOCUSATE SODIUM 100 MG CAP PO ×2 (08:18→21:58)
[2018-01-30] MEDS: HumaLOG INSULIN (NovoLOG) PER UNIT SC ×4 (08:18→21:57)
[2018-01-30] MEDS: FERROUS SULFATE 325MG TAB PO (08:18)
[2018-01-30] MEDS: SERTRALINE HCL 50 MG TAB PO (08:18)
[2018-01-30] MEDS: ASPIRIN 81 MG ENTERIC TAB PO (08:18)
[2018-01-30] MEDS: APIXABAN 5 MG TAB (ELIQUIS) PO ×2 (08:18→21:58)
[2018-01-30] MEDS: POLYVINYL ALCOHOL OPHTH SOLN 15 ML(LIQUITEARS) OU ×4 (08:19→21:58)
[2018-01-30 11:38] LABS: BEDSIDE GLUCOSE 423 MG/DL (83-110)
[2018-01-30] MEDS: OMEPRAZOLE 20 MG CAP PO (12:01)
[2018-01-30] MEDS: FINASTERIDE 5 MG TAB PO (12:01)
[2018-01-30 16:37] LABS: BEDSIDE GLUCOSE 373 MG/DL (83-110)
[2018-01-30] MEDS: BISOPROLOL FUMARATE 5 MG TAB PO (17:10)
[2018-01-30] MEDS: LevoFLOXacin IV 250 MG in APPROPRIATE DILUENT 1 EA IV (20:02)
[2018-01-30 20:07] LABS: BEDSIDE GLUCOSE 339 MG/DL (83-110)
[2018-01-30] MEDS: LEVEMIR (INSULIN DETEMIR) 1 UNITS/0.01ML SC (21:57)
[2018-01-30] MEDS: TAMSULOSIN 0.4 MG CAP PO (21:58)
[2018-01-30] MEDS: LATANOPROST 0.005% OPHTH SOLN 2.5 ML OU (21:58)
[2018-01-30] MEDS: ALPRAZolam 0.25 MG TAB PO (21:58)
[2018-01-30] MEDS: ACETAMINOPHEN TAB 650MG DOSE (2X325MG) PO (21:59)
[2018-01-30] MEDS: ROSUVASTATIN 10 MG TAB (CRESTOR) PO (21:59)
[2018-01-31] MEDS: IPRATROPIUM 0.5MG/ALBUTEROL 2.5MG INH SOL UD 3ML (DUONEB)(J7620) NEB ×5 (02:00→19:37)
[2018-01-31] MEDS: methylPREDNISolone INJ 125 MG/2 ML VIAL (J2930) IV ×3 (03:59→20:55)
[2018-01-31 05:40] LABS: BASO % 0.1 % (0.0-1.0); HEMATOCRIT 32.7 % (42.0-52.0); HEMOGLOBIN 10.7 g/dl (14.0-18.0); IMMATURE GRANULOCYTE % 1.7 % (0-3.0); LYMPH # 0.5 10^3/uL (1.5-4.5); LYMPH % 4.7 % (24.0-44.0); MEAN CORPUSCULAR HEMOGLOBIN 30.9 pg (27.0-33.0); MEAN CORPUSCULAR HGB CONC 32.7 g/dl (32.0-36.5); MEAN CORPUSCULAR VOLUME 94.5 fl (80.0-96.0); MONO # 0.5 10^3/uL (0.0-0.8); MONO % 4.9 % (0.0-5.0); NEUTROPHILS # 8.5 10^3/uL (1.8-7.7); NEUTROPHILS % 88.6 % (36.0-66.0); PLATELET COUNT, AUTOMATED 214 10^3/uL (150-450); RED BLOOD COUNT 3.46 10^6/uL (4.30-6.10); RED CELL DISTRIBUTION WIDTH 14.6 % (11.5-14.5); WHITE BLOOD COUNT 9.6 10^3/uL (4.0-10.0)
[2018-01-31 06:00] LABS: ALBUMIN 2.9 GM/DL (3.2-5.2); ALBUMIN/GLOBULIN RATIO 0.88 (1.00-1.93); ALKALINE PHOSPHATASE 40 U/L (45-117); ALT/SGPT 33 U/L (12-78); ANION GAP 8 MEQ/L (8-16); AST/SGOT 21 U/L (7-37); BILIRUBIN,TOTAL 0.3 MG/DL (0.2-1.0); BLOOD UREA NITROGEN 58 MG/DL (7-18); CALCIUM LEVEL 8.8 MG/DL (8.8-10.2); CARBON DIOXIDE LEVEL 24 MEQ/L (21-32); CHLORIDE LEVEL 107 MEQ/L (98-107); CREATININE FOR GFR 1.87 MG/DL (0.70-1.30); GLOMERULAR FILTRATION RATE 37.8 (>42); GLUCOSE, FASTING 327 MG/DL (70-100); POTASSIUM SERUM 4.8 MEQ/L (3.5-5.1); SODIUM LEVEL 139 MEQ/L (136-145); TOTAL PROTEIN 6.2 GM/DL (6.4-8.2)
[2018-01-31] MEDS: APIXABAN 5 MG TAB (ELIQUIS) PO ×2 (09:04→20:55)
[2018-01-31] MEDS: DOCUSATE SODIUM 100 MG CAP PO ×2 (09:04→20:55)
[2018-01-31] MEDS: BISOPROLOL FUMARATE 5 MG TAB PO (09:04)
[2018-01-31] MEDS: FERROUS SULFATE 325MG TAB PO (09:04)
[2018-01-31] MEDS: ASPIRIN 81 MG ENTERIC TAB PO (09:04)
[2018-01-31] MEDS: SERTRALINE HCL 50 MG TAB PO (09:04)
[2018-01-31] MEDS: HumaLOG INSULIN (NovoLOG) PER UNIT SC ×4 (09:05→20:55)
[2018-01-31] MEDS: POLYVINYL ALCOHOL OPHTH SOLN 15 ML(LIQUITEARS) OU ×4 (09:07→20:54)
[2018-01-31 11:47] LABS: BEDSIDE GLUCOSE 429 MG/DL (83-110)
[2018-01-31] MEDS: FINASTERIDE 5 MG TAB PO (12:21)
[2018-01-31] MEDS: OMEPRAZOLE 20 MG CAP PO (12:21)
[2018-01-31 16:51] LABS: BEDSIDE GLUCOSE 364 MG/DL (83-110)
[2018-01-31] MEDS: LevoFLOXacin IV 250 MG in APPROPRIATE DILUENT 1 EA IV (18:22)
[2018-01-31 20:05] LABS: BEDSIDE GLUCOSE 296 MG/DL (83-110)
[2018-01-31] MEDS: LEVEMIR (INSULIN DETEMIR) 1 UNITS/0.01ML SC (20:54)
[2018-01-31] MEDS: LATANOPROST 0.005% OPHTH SOLN 2.5 ML OU (20:54)
[2018-01-31] MEDS: ROSUVASTATIN 10 MG TAB (CRESTOR) PO (20:55)
[2018-01-31] MEDS: TAMSULOSIN 0.4 MG CAP PO (20:55)
[2018-01-31] MEDS: ALPRAZolam 0.25 MG TAB PO (23:55)
[2018-02-01] MEDS: IPRATROPIUM 0.5MG/ALBUTEROL 2.5MG INH SOL UD 3ML (DUONEB)(J7620) NEB ×5 (01:08→19:52)
[2018-02-01] MEDS: ACETAMINOPHEN TAB 650MG DOSE (2X325MG) PO ×2 (02:49→23:33)
[2018-02-01] MEDS: methylPREDNISolone INJ 125 MG/2 ML VIAL (J2930) IV (04:46)
[2018-02-01 05:47] LABS: BASO % 0.1 % (0.0-1.0); HEMATOCRIT 32.6 % (42.0-52.0); HEMOGLOBIN 10.7 g/dl (14.0-18.0); IMMATURE GRANULOCYTE % 2.6 % (0-3.0); LYMPH # 0.8 10^3/uL (1.5-4.5); LYMPH % 7.9 % (24.0-44.0); MEAN CORPUSCULAR HEMOGLOBIN 30.8 pg (27.0-33.0); MEAN CORPUSCULAR HGB CONC 32.8 g/dl (32.0-36.5); MEAN CORPUSCULAR VOLUME 93.9 fl (80.0-96.0); MONO # 0.7 10^3/uL (0.0-0.8); NEUTROPHILS # 8.4 10^3/uL (1.8-7.7); NEUTROPHILS % 82.4 % (36.0-66.0); PLATELET COUNT, AUTOMATED 200 10^3/uL (150-450); RED BLOOD COUNT 3.47 10^6/uL (4.30-6.10); RED CELL DISTRIBUTION WIDTH 14.6 % (11.5-14.5); WHITE BLOOD COUNT 10.1 10^3/uL (4.0-10.0)
[2018-02-01 06:22] LABS: ALKALINE PHOSPHATASE 37 U/L (45-117); ALT/SGPT 41 U/L (12-78); ANION GAP 10 MEQ/L (8-16); AST/SGOT 26 U/L (7-37); BILIRUBIN,TOTAL 0.5 MG/DL (0.2-1.0); BLOOD UREA NITROGEN 51 MG/DL (7-18); CARBON DIOXIDE LEVEL 25 MEQ/L (21-32); CHLORIDE LEVEL 104 MEQ/L (98-107); CREATININE FOR GFR 1.75 MG/DL (0.70-1.30); GLOMERULAR FILTRATION RATE 40.8 (>42); GLUCOSE, FASTING 256 MG/DL (70-100); POTASSIUM SERUM 4.9 MEQ/L (3.5-5.1); SODIUM LEVEL 139 MEQ/L (136-145)
[2018-02-01 06:23] LABS: ALBUMIN 2.9 GM/DL (3.2-5.2); ALBUMIN/GLOBULIN RATIO 0.94 (1.00-1.93)
[2018-02-01] MEDS: HumaLOG INSULIN (NovoLOG) PER UNIT SC ×4 (09:09→22:11)
[2018-02-01] MEDS: ASPIRIN 81 MG ENTERIC TAB PO (09:09)
[2018-02-01] MEDS: SERTRALINE HCL 50 MG TAB PO (09:09)
[2018-02-01] MEDS: APIXABAN 5 MG TAB (ELIQUIS) PO ×2 (09:09→22:10)
[2018-02-01] MEDS: FERROUS SULFATE 325MG TAB PO (09:09)
[2018-02-01] MEDS: BISOPROLOL FUMARATE 5 MG TAB PO (09:09)
[2018-02-01] MEDS: DOCUSATE SODIUM 100 MG CAP PO ×2 (09:09→22:10)
[2018-02-01] MEDS: ALPRAZolam 0.25 MG TAB PO ×2 (09:09→22:10)
[2018-02-01] MEDS: POLYVINYL ALCOHOL OPHTH SOLN 15 ML(LIQUITEARS) OU ×4 (09:10→22:12)
[2018-02-01 11:41] LABS: BEDSIDE GLUCOSE 389 MG/DL (83-110)
[2018-02-01] MEDS: FINASTERIDE 5 MG TAB PO (12:53)
[2018-02-01] MEDS: OMEPRAZOLE 20 MG CAP PO (12:53)
[2018-02-01 16:55] LABS: BEDSIDE GLUCOSE 344 MG/DL (83-110)
[2018-02-01] MEDS: LevoFLOXacin IV 250 MG in APPROPRIATE DILUENT 1 EA IV (18:22)
[2018-02-01 21:22] LABS: BEDSIDE GLUCOSE 264 MG/DL (83-110)
[2018-02-01] MEDS: LATANOPROST 0.005% OPHTH SOLN 2.5 ML OU (22:10)
[2018-02-01] MEDS: ROSUVASTATIN 10 MG TAB (CRESTOR) PO (22:10)
[2018-02-01] MEDS: TAMSULOSIN 0.4 MG CAP PO (22:10)
[2018-02-01] MEDS: LEVEMIR (INSULIN DETEMIR) 1 UNITS/0.01ML SC (22:11)
[2018-02-02] MEDS: IPRATROPIUM 0.5MG/ALBUTEROL 2.5MG INH SOL UD 3ML (DUONEB)(J7620) NEB ×5 (01:17→19:27)
[2018-02-02 01:43] LABS: HIVSOURCE0 NEGATIVE (NEGATIVE)
[2018-02-02 01:45] LABS: CONTROL LINE INT CTR LINE PRESENT; HIV SOURCE PT 1 NEGATIVE (NEGATIVE)
[2018-02-02 06:05] LABS: BASO % 0.3 % (0.0-1.0); EOS % 0.3 % (0.0-3.0); HEMATOCRIT 34.5 % (42.0-52.0); HEMOGLOBIN 11.3 g/dl (14.0-18.0); IMMATURE GRANULOCYTE % 4.8 % (0-3.0); LYMPH # 1.3 10^3/uL (1.5-4.5); MEAN CORPUSCULAR HEMOGLOBIN 31.2 pg (27.0-33.0); MEAN CORPUSCULAR HGB CONC 32.8 g/dl (32.0-36.5); MEAN CORPUSCULAR VOLUME 95.3 fl (80.0-96.0); MONO # 0.8 10^3/uL (0.0-0.8); MONO % 8.7 % (0.0-5.0); NEUTROPHILS # 6.5 10^3/uL (1.8-7.7); NEUTROPHILS % 71.9 % (36.0-66.0); PLATELET COUNT, AUTOMATED 202 10^3/uL (150-450); RED BLOOD COUNT 3.62 10^6/uL (4.30-6.10); RED CELL DISTRIBUTION WIDTH 14.6 % (11.5-14.5); WHITE BLOOD COUNT 9.1 10^3/uL (4.0-10.0)
[2018-02-02 06:22] LABS: ALBUMIN 2.9 GM/DL (3.2-5.2); ALBUMIN/GLOBULIN RATIO 0.91 (1.00-1.93); ALKALINE PHOSPHATASE 40 U/L (45-117); ALT/SGPT 46 U/L (12-78); ANION GAP 6 MEQ/L (8-16); AST/SGOT 25 U/L (7-37); BILIRUBIN,TOTAL 0.4 MG/DL (0.2-1.0); BLOOD UREA NITROGEN 44 MG/DL (7-18); CARBON DIOXIDE LEVEL 29 MEQ/L (21-32); CHLORIDE LEVEL 108 MEQ/L (98-107); CREATININE FOR GFR 1.48 MG/DL (0.70-1.30); GLOMERULAR FILTRATION RATE 49.5 (>42); GLUCOSE, FASTING 101 MG/DL (70-100); POTASSIUM SERUM 4.4 MEQ/L (3.5-5.1); SODIUM LEVEL 143 MEQ/L (136-145); TOTAL PROTEIN 6.1 GM/DL (6.4-8.2)
[2018-02-02] MEDS: FERROUS SULFATE 325MG TAB PO (08:50)
[2018-02-02] MEDS: DOCUSATE SODIUM 100 MG CAP PO ×2 (08:50→21:20)
[2018-02-02] MEDS: BISOPROLOL FUMARATE 5 MG TAB PO (08:51)
[2018-02-02] MEDS: ASPIRIN 81 MG ENTERIC TAB PO (08:51)
[2018-02-02] MEDS: predniSONE 20 MG TAB PO (08:51)
[2018-02-02] MEDS: APIXABAN 5 MG TAB (ELIQUIS) PO ×2 (08:51→21:20)
[2018-02-02] MEDS: SERTRALINE HCL 50 MG TAB PO (08:51)
[2018-02-02] MEDS: POLYVINYL ALCOHOL OPHTH SOLN 15 ML(LIQUITEARS) OU ×4 (08:52→21:21)
[2018-02-02] MEDS: HumaLOG INSULIN (NovoLOG) PER UNIT SC ×4 (08:52→21:21)
[2018-02-02 11:44] LABS: BEDSIDE GLUCOSE 310 MG/DL (83-110)
[2018-02-02] MEDS: OMEPRAZOLE 20 MG CAP PO (12:50)
[2018-02-02] MEDS: FINASTERIDE 5 MG TAB PO (12:50)
[2018-02-02 16:48] LABS: BEDSIDE GLUCOSE 377 MG/DL (83-110)
[2018-02-02] MEDS: LevoFLOXacin IV 250 MG in APPROPRIATE DILUENT 1 EA IV (18:22)
[2018-02-02] MEDS: ALPRAZolam 0.25 MG TAB PO (21:20)
[2018-02-02] MEDS: TAMSULOSIN 0.4 MG CAP PO (21:20)
[2018-02-02] MEDS: ROSUVASTATIN 10 MG TAB (CRESTOR) PO (21:20)
[2018-02-02] MEDS: LEVEMIR (INSULIN DETEMIR) 1 UNITS/0.01ML SC (21:21)
[2018-02-02] MEDS: LATANOPROST 0.005% OPHTH SOLN 2.5 ML OU (21:21)
[2018-02-03] MEDS: IPRATROPIUM 0.5MG/ALBUTEROL 2.5MG INH SOL UD 3ML (DUONEB)(J7620) NEB ×5 (01:09→19:55)
[2018-02-03 03:01] LABS: BEDSIDE GLUCOSE 288 MG/DL (83-110)
[2018-02-03 06:21] LABS: BASO % 0.1 % (0.0-1.0); EOS % 0.4 % (0.0-3.0); HEMATOCRIT 33.4 % (42.0-52.0); HEMOGLOBIN 10.8 g/dl (14.0-18.0); IMMATURE GRANULOCYTE % 4.4 % (0-3.0); LYMPH # 1.3 10^3/uL (1.5-4.5); LYMPH % 14.1 % (24.0-44.0); MEAN CORPUSCULAR HEMOGLOBIN 30.2 pg (27.0-33.0); MEAN CORPUSCULAR HGB CONC 32.3 g/dl (32.0-36.5); MEAN CORPUSCULAR VOLUME 93.3 fl (80.0-96.0); MONO # 0.7 10^3/uL (0.0-0.8); MONO % 7.3 % (0.0-5.0); NEUTROPHILS # 6.9 10^3/uL (1.8-7.7); NEUTROPHILS % 73.7 % (36.0-66.0); PLATELET COUNT, AUTOMATED 208 10^3/uL (150-450); RED BLOOD COUNT 3.58 10^6/uL (4.30-6.10); RED CELL DISTRIBUTION WIDTH 14.6 % (11.5-14.5); WHITE BLOOD COUNT 9.3 10^3/uL (4.0-10.0)
[2018-02-03 06:37] LABS: ALBUMIN 2.7 GM/DL (3.2-5.2); ALKALINE PHOSPHATASE 44 U/L (45-117); ALT/SGPT 40 U/L (12-78); ANION GAP 9 MEQ/L (8-16); AST/SGOT 19 U/L (7-37); BILIRUBIN,TOTAL 0.4 MG/DL (0.2-1.0); BLOOD UREA NITROGEN 49 MG/DL (7-18); CARBON DIOXIDE LEVEL 26 MEQ/L (21-32); CHLORIDE LEVEL 105 MEQ/L (98-107); CREATININE FOR GFR 1.67 MG/DL (0.70-1.30); GLUCOSE, FASTING 246 MG/DL (70-100); POTASSIUM SERUM 4.5 MEQ/L (3.5-5.1); SODIUM LEVEL 140 MEQ/L (136-145); TOTAL PROTEIN 5.7 GM/DL (6.4-8.2)
[2018-02-03] MEDS: HumaLOG INSULIN (NovoLOG) PER UNIT SC ×4 (09:04→21:01)
[2018-02-03] MEDS: BISOPROLOL FUMARATE 5 MG TAB PO (09:05)
[2018-02-03] MEDS: SERTRALINE HCL 50 MG TAB PO (09:05)
[2018-02-03] MEDS: DOCUSATE SODIUM 100 MG CAP PO ×2 (09:05→21:01)
[2018-02-03] MEDS: predniSONE 20 MG TAB PO (09:05)
[2018-02-03] MEDS: APIXABAN 5 MG TAB (ELIQUIS) PO ×2 (09:05→21:01)
[2018-02-03] MEDS: ASPIRIN 81 MG ENTERIC TAB PO (09:05)
[2018-02-03] MEDS: FERROUS SULFATE 325MG TAB PO (09:06)
[2018-02-03] MEDS: POLYVINYL ALCOHOL OPHTH SOLN 15 ML(LIQUITEARS) OU ×4 (09:06→21:02)
[2018-02-03] MEDS: ALPRAZolam 0.25 MG TAB PO ×2 (09:06→21:01)
[2018-02-03 11:46] LABS: HEPATITIS B SURFACE ANTIGEN NEGATIVE (NEGATIVE)
[2018-02-03 11:57] LABS: BEDSIDE GLUCOSE 357 MG/DL (83-110)
[2018-02-03 12:13] LABS: HEP C VIRUS AB INDEX SOURCE PT 0.1 INDEX (0.0-0.8)
[2018-02-03] MEDS: FINASTERIDE 5 MG TAB PO (13:05)
[2018-02-03] MEDS: OMEPRAZOLE 20 MG CAP PO (13:05)
[2018-02-03 17:25] LABS: BEDSIDE GLUCOSE 433 MG/DL (83-110)
[2018-02-03] MEDS: LevoFLOXacin IV 250 MG in APPROPRIATE DILUENT 1 EA IV (18:18)
[2018-02-03] MEDS: LEVEMIR (INSULIN DETEMIR) 1 UNITS/0.01ML SC (21:01)
[2018-02-03 21:02] LABS: BEDSIDE GLUCOSE 306 MG/DL (83-110)
[2018-02-03] MEDS: TAMSULOSIN 0.4 MG CAP PO (21:02)
[2018-02-03] MEDS: LATANOPROST 0.005% OPHTH SOLN 2.5 ML OU (21:02)
[2018-02-03] MEDS: ROSUVASTATIN 10 MG TAB (CRESTOR) PO (21:02)
[2018-02-04] MEDS: IPRATROPIUM 0.5MG/ALBUTEROL 2.5MG INH SOL UD 3ML (DUONEB)(J7620) NEB ×5 (01:35→21:12)
[2018-02-04 06:28] LABS: BASO % 0.3 % (0.0-1.0); EOS # 0.1 10^3/uL (0.0-0.50); EOS % 0.6 % (0.0-3.0); HEMATOCRIT 34.1 % (42.0-52.0); HEMOGLOBIN 11.2 g/dl (14.0-18.0); IMMATURE GRANULOCYTE % 4.4 % (0-3.0); LYMPH # 1.4 10^3/uL (1.5-4.5); LYMPH % 13.9 % (24.0-44.0); MEAN CORPUSCULAR HEMOGLOBIN 30.7 pg (27.0-33.0); MEAN CORPUSCULAR HGB CONC 32.8 g/dl (32.0-36.5); MEAN CORPUSCULAR VOLUME 93.4 fl (80.0-96.0); MONO # 0.8 10^3/uL (0.0-0.8); MONO % 7.8 % (0.0-5.0); NEUTROPHILS # 7.3 10^3/uL (1.8-7.7); PLATELET COUNT, AUTOMATED 195 10^3/uL (150-450); RED BLOOD COUNT 3.65 10^6/uL (4.30-6.10); RED CELL DISTRIBUTION WIDTH 14.7 % (11.5-14.5)
[2018-02-04 06:52] LABS: ALBUMIN 2.7 GM/DL (3.2-5.2); ALBUMIN/GLOBULIN RATIO 0.79 (1.00-1.93); ALKALINE PHOSPHATASE 45 U/L (45-117); ALT/SGPT 43 U/L (12-78); ANION GAP 7 MEQ/L (8-16); AST/SGOT 19 U/L (7-37); BILIRUBIN,TOTAL 0.5 MG/DL (0.2-1.0); BLOOD UREA NITROGEN 46 MG/DL (7-18); CALCIUM LEVEL 8.5 MG/DL (8.8-10.2); CARBON DIOXIDE LEVEL 27 MEQ/L (21-32); CHLORIDE LEVEL 106 MEQ/L (98-107); CREATININE FOR GFR 1.46 MG/DL (0.70-1.30); GLOMERULAR FILTRATION RATE 50.2 (>42); GLUCOSE, FASTING 161 MG/DL (70-100); POTASSIUM SERUM 4.2 MEQ/L (3.5-5.1); SODIUM LEVEL 140 MEQ/L (136-145); TOTAL PROTEIN 6.1 GM/DL (6.4-8.2)
[2018-02-04] MEDS: HumaLOG INSULIN (NovoLOG) PER UNIT SC ×4 (07:30→20:39)
[2018-02-04] MEDS: ASPIRIN 81 MG ENTERIC TAB PO (08:21)
[2018-02-04] MEDS: POLYVINYL ALCOHOL OPHTH SOLN 15 ML(LIQUITEARS) OU ×4 (08:21→20:40)
[2018-02-04] MEDS: SERTRALINE HCL 50 MG TAB PO (08:21)
[2018-02-04] MEDS: predniSONE 20 MG TAB PO (08:21)
[2018-02-04] MEDS: BISOPROLOL FUMARATE 5 MG TAB PO (08:21)
[2018-02-04] MEDS: FERROUS SULFATE 325MG TAB PO (08:21)
[2018-02-04] MEDS: DOCUSATE SODIUM 100 MG CAP PO ×2 (08:21→20:38)
[2018-02-04] MEDS: APIXABAN 5 MG TAB (ELIQUIS) PO ×2 (10:59→20:38)
[2018-02-04 12:11] LABS: BEDSIDE GLUCOSE 284 MG/DL (83-110)
[2018-02-04] MEDS: OMEPRAZOLE 20 MG CAP PO (12:26)
[2018-02-04] MEDS: FINASTERIDE 5 MG TAB PO (12:26)
[2018-02-04 17:39] LABS: BEDSIDE GLUCOSE 414 MG/DL (83-110)
[2018-02-04] MEDS: LevoFLOXacin IV 250 MG in APPROPRIATE DILUENT 1 EA IV (18:36)
[2018-02-04] MEDS: ACETAMINOPHEN TAB 650MG DOSE (2X325MG) PO (20:37)
[2018-02-04] MEDS: TAMSULOSIN 0.4 MG CAP PO (20:38)
[2018-02-04] MEDS: ROSUVASTATIN 10 MG TAB (CRESTOR) PO (20:38)
[2018-02-04] MEDS: LEVEMIR (INSULIN DETEMIR) 1 UNITS/0.01ML SC (20:38)
[2018-02-04] MEDS: LATANOPROST 0.005% OPHTH SOLN 2.5 ML OU (20:40)
[2018-02-04 20:53] LABS: BEDSIDE GLUCOSE 306 MG/DL (83-110)
[2018-02-05] MEDS: IPRATROPIUM 0.5MG/ALBUTEROL 2.5MG INH SOL UD 3ML (DUONEB)(J7620) NEB ×3 (01:42→11:08)
[2018-02-05 06:26] LABS: HEMATOCRIT 33.3 % (42.0-52.0); HEMOGLOBIN 10.6 g/dl (14.0-18.0); MEAN CORPUSCULAR HEMOGLOBIN 30.3 pg (27.0-33.0); MEAN CORPUSCULAR HGB CONC 31.8 g/dl (32.0-36.5); MEAN CORPUSCULAR VOLUME 95.1 fl (80.0-96.0); PLATELET COUNT, AUTOMATED 191 10^3/uL (150-450); RED CELL DISTRIBUTION WIDTH 14.8 % (11.5-14.5); WHITE BLOOD COUNT 9.1 10^3/uL (4.0-10.0)
[2018-02-05 06:29] LABS: ADD MANUAL DIFFER YES; DIFF SLIDE NUMBER 17; POS COUNT POS FLAG; POSITIVE MORPH POS FLAG
[2018-02-05 06:47] LABS: ALBUMIN 2.6 GM/DL (3.2-5.2); ALBUMIN/GLOBULIN RATIO 0.81 (1.00-1.93); ALKALINE PHOSPHATASE 47 U/L (45-117); ALT/SGPT 50 U/L (12-78); ANION GAP 9 MEQ/L (8-16); AST/SGOT 23 U/L (7-37); BILIRUBIN,TOTAL 0.4 MG/DL (0.2-1.0); BLOOD UREA NITROGEN 44 MG/DL (7-18); CALCIUM LEVEL 8.4 MG/DL (8.8-10.2); CARBON DIOXIDE LEVEL 25 MEQ/L (21-32); CHLORIDE LEVEL 106 MEQ/L (98-107); GLOMERULAR FILTRATION RATE 52.7 (>42); GLUCOSE, FASTING 189 MG/DL (70-100); POTASSIUM SERUM 4.3 MEQ/L (3.5-5.1); SODIUM LEVEL 140 MEQ/L (136-145); TOTAL PROTEIN 5.8 GM/DL (6.4-8.2)
[2018-02-05 06:51] LABS: ATYPICAL LYMPH 1 % (0-5); BASOPHILS 1 % (0-4); EOSINOPHILS 1 % (0-5); LYMPHOCYTES 11 % (16-52); METAMYELOCYTES 1 % (0-0); MONOCYTES 8 % (0-8); NEUTROPHILS 77 % (35-75); PLATELET ESTIMATE NORMAL (NORMAL)
[2018-02-05 06:52] LABS: POLYCHROMASIA 1+
[2018-02-05 06:54] LABS: ANISOCYTOSIS 1+
[2018-02-05] MEDS: BISOPROLOL FUMARATE 5 MG TAB PO (09:09)
[2018-02-05] MEDS: ASPIRIN 81 MG ENTERIC TAB PO (09:09)
[2018-02-05] MEDS: predniSONE 20 MG TAB PO (09:09)
[2018-02-05] MEDS: APIXABAN 5 MG TAB (ELIQUIS) PO (09:09)
[2018-02-05] MEDS: SERTRALINE HCL 50 MG TAB PO (09:09)
[2018-02-05] MEDS: HumaLOG INSULIN (NovoLOG) PER UNIT SC ×2 (09:09→11:55)
[2018-02-05] MEDS: FERROUS SULFATE 325MG TAB PO (09:09)
[2018-02-05] MEDS: DOCUSATE SODIUM 100 MG CAP PO (09:09)
[2018-02-05] MEDS: POLYVINYL ALCOHOL OPHTH SOLN 15 ML(LIQUITEARS) OU (09:10)
[2018-02-05 11:25] LABS: BEDSIDE GLUCOSE 316 MG/DL (83-110)
[2018-02-05] MEDS: FINASTERIDE 5 MG TAB PO (11:55)
[2018-02-05] MEDS: OMEPRAZOLE 20 MG CAP PO (11:55)
== END 2018-02-05 12:27 | disposition home or self-care (01) | DRG 192 ==
LOC: M ED 02:44 → M MSPAV 01-29 20:06 → M ED INP 05:45 → M MSPAV 08:43
DX: J44.1 Chronic obstructive pulmonary disease with (acute) exacerbation (principal); E11.9 Type 2 diabetes mellitus without complications; I25.10 Atherosclerotic heart disease of native coronary artery without angina pectoris; I48.0 Paroxysmal atrial fibrillation; I12.9 Hypertensive chronic kidney disease with stage 1 through stage 4 chronic kidney disease, or unspecified chronic kidney disease; N18.3 Chronic kidney disease, stage 3 (moderate); E78.5 Hyperlipidemia, unspecified; Z87.891 Personal history of nicotine dependence; Z98.890 Other specified postprocedural states; Z95.5 Presence of coronary angioplasty implant and graft; Z79.82 Long term (current) use of aspirin; Z79.01 Long term (current) use of anticoagulants; Z79.4 Long term (current) use of insulin; Z79.899 Other long term (current) drug therapy; Z88.2 Allergy status to sulfonamides; N40.1 Benign prostatic hyperplasia with lower urinary tract symptoms

== ENCOUNTER → 2018-03-09 | Outpatient (CLI) | payer MEDICARE ==
[2018-03-09 09:04] LABS: BASO % 0.3 % (0.0-1.0); EOS # 0.1 10^3/uL (0.0-0.50); EOS % 1.2 % (0.0-3.0); HEMATOCRIT 36.3 % (42.0-52.0); HEMOGLOBIN 11.6 g/dl (13.5-17.5); IMMATURE GRANULOCYTE % 2.6 % (0-3.0); LYMPH % 17.7 % (24.0-44.0); MEAN CORPUSCULAR HEMOGLOBIN 29.6 pg (27.0-33.0); MEAN CORPUSCULAR VOLUME 92.6 fl (80.0-96.0); MONO # 0.6 10^3/uL (0.0-0.8); MONO % 10.7 % (0.0-5.0); NEUTROPHILS % 67.5 % (36.0-66.0); PLATELET COUNT, AUTOMATED 310 10^3/uL (150-450); RED BLOOD COUNT 3.92 10^6/uL (4.30-6.10); RED CELL DISTRIBUTION WIDTH 15.9 % (11.5-14.5); WHITE BLOOD COUNT 5.9 10^3/uL (4.0-10.0)
[2018-03-09 11:20] LABS: CREATININE, URINE 74.7 MG/DL; MAU/CREAT RATIO 50.8 MCG/MG (0.0-30.0)
[2018-03-09 11:37] LABS: ALBUMIN 3.3 GM/DL (3.2-5.2); ALBUMIN/GLOBULIN RATIO 0.92 (1.00-1.93); ALKALINE PHOSPHATASE 38 U/L (45-117); ALT/SGPT 24 U/L (12-78); ANION GAP 7 MEQ/L (8-16); AST/SGOT 19 U/L (7-37); BILIRUBIN,TOTAL 0.5 MG/DL (0.2-1.0); BLOOD UREA NITROGEN 69 MG/DL (7-18); CALCIUM LEVEL 9.4 MG/DL (8.8-10.2); CARBON DIOXIDE LEVEL 27 MEQ/L (21-32); CHLORIDE LEVEL 106 MEQ/L (98-107); CHOLESTEROL LEVEL 179 MG/DL (<200); CHOLESTEROL RISK RATIO 5.114 (<5); GLUCOSE, FASTING 166 MG/DL (70-100); HDL CHOLESTEROL 35 MG/DL (>40); LDL CHOLESTEROL 98.2 MG/DL (<100); NON-HDL-C 144 MG/DL; POTASSIUM SERUM 4.5 MEQ/L (3.5-5.1); SODIUM LEVEL 140 MEQ/L (136-145); THYROID STIMULATING HORMONE 0.842 uIU/ML (0.358-3.740); TOTAL PROTEIN 6.9 GM/DL (6.4-8.2); TRIGLYCERIDES LEVEL 229 MG/DL (<150)
[2018-03-09 12:23] LABS: ESTIMATED AVERAGE GLUCOSE 200 MG/DL (60-110); HEMOGLOBIN A1c 8.6 %
== END ==
LOC: M LAB 08:06
DX: I10 Essential (primary) hypertension (principal); D63.1 Anemia in chronic kidney disease; E78.2 Mixed hyperlipidemia
CPT/HCPCS: 84443

== ENCOUNTER → 2018-04-14 | Outpatient (CLI) | payer MEDICARE ==
[2018-04-14 09:23] LABS: BASO % 0.2 % (0.0-1.0); EOS # 0.1 10^3/uL (0.0-0.50); EOS % 1.6 % (0.0-3.0); HEMATOCRIT 39.7 % (42.0-52.0); HEMOGLOBIN 12.7 g/dl (13.5-17.5); IMMATURE GRANULOCYTE % 1.2 % (0-3.0); LYMPH % 12.8 % (24.0-44.0); MEAN CORPUSCULAR HEMOGLOBIN 30.2 pg (27.0-33.0); MEAN CORPUSCULAR VOLUME 94.3 fl (80.0-96.0); MONO # 0.8 10^3/uL (0.0-0.8); MONO % 9.6 % (0.0-5.0); NEUTROPHILS # 6.1 10^3/uL (1.8-7.7); NEUTROPHILS % 74.6 % (36.0-66.0); PLATELET COUNT, AUTOMATED 247 10^3/uL (150-450); RED BLOOD COUNT 4.21 10^6/uL (4.30-6.10); RED CELL DISTRIBUTION WIDTH 15.9 % (11.5-14.5); WHITE BLOOD COUNT 8.1 10^3/uL (4.0-10.0)
[2018-04-14 09:43] LABS: ESTIMATED AVERAGE GLUCOSE 180 MG/DL (60-110); HEMOGLOBIN A1c 7.9 %
[2018-04-14 09:56] LABS: ALBUMIN 3.6 GM/DL (3.2-5.2); ALBUMIN/GLOBULIN RATIO 1.03 (1.00-1.93); ALKALINE PHOSPHATASE 35 U/L (45-117); ALT/SGPT 29 U/L (12-78); ANION GAP 9 MEQ/L (8-16); AST/SGOT 17 U/L (7-37); BILIRUBIN,TOTAL 0.5 MG/DL (0.2-1.0); BLOOD UREA NITROGEN 63 MG/DL (7-18); CALCIUM LEVEL 8.7 MG/DL (8.8-10.2); CARBON DIOXIDE LEVEL 22 MEQ/L (21-32); CHLORIDE LEVEL 107 MEQ/L (98-107); CHOLESTEROL LEVEL 175 MG/DL (<200); CHOLESTEROL RISK RATIO 4.166 (<5); CREATININE FOR GFR 1.76 MG/DL (0.70-1.30); GLOMERULAR FILTRATION RATE 40.4 (>42); GLUCOSE, FASTING 158 MG/DL (70-100); HDL CHOLESTEROL 42 MG/DL (>40); NON-HDL-C 133 MG/DL; POTASSIUM SERUM 4.9 MEQ/L (3.5-5.1); SODIUM LEVEL 138 MEQ/L (136-145); TOTAL PROTEIN 7.1 GM/DL (6.4-8.2); TRIGLYCERIDES LEVEL 140 MG/DL (<150)
[2018-04-14 10:00] LABS: CREATININE, URINE 53.1 MG/DL; MALB URINE SIEMENS 54.2 MG/L
[2018-04-14 11:08] LABS: TOTAL 25(OH) VITAMIN D 41.7 NG/ML (30.0-100.0)
== END ==
LOC: M LAB 08:34
DX: E78.2 Mixed hyperlipidemia (principal); I12.9 Hypertensive chronic kidney disease with stage 1 through stage 4 chronic kidney disease, or unspecified chronic kidney disease; D63.1 Anemia in chronic kidney disease; N18.9 Chronic kidney disease, unspecified
CPT/HCPCS: 84443

== ENCOUNTER → 2018-09-09 | Outpatient (REF) | payer MEDICARE | LOC: M ADAMS 14:51 | DX: J44.9 Chronic obstructive pulmonary disease, unspecified (principal) | CPT/HCPCS: 71046 ==

== ENCOUNTER → 2018-10-11 | Outpatient (CLI) | payer MEDICARE ==
[2018-10-11 09:11] LABS: BASO % 0.2 % (0.0-1.0); EOS # 0.1 10^3/uL (0.0-0.50); EOS % 1.4 % (0.0-3.0); HEMATOCRIT 38.3 % (42.0-52.0); HEMOGLOBIN 12.1 g/dl (13.5-17.5); IMMATURE GRANULOCYTE % 4.6 % (0-3.0); LYMPH # 0.9 10^3/uL (1.5-4.5); LYMPH % 10.7 % (24.0-44.0); MEAN CORPUSCULAR HEMOGLOBIN 28.7 pg (27.0-33.0); MEAN CORPUSCULAR HGB CONC 31.6 g/dl (32.0-36.5); MONO # 0.7 10^3/uL (0.0-0.8); MONO % 8.4 % (0.0-5.0); NEUTROPHILS # 6.5 10^3/uL (1.8-7.7); NEUTROPHILS % 74.7 % (36.0-66.0); PLATELET COUNT, AUTOMATED 391 10^3/uL (150-450); RED BLOOD COUNT 4.21 10^6/uL (4.30-6.10); RED CELL DISTRIBUTION WIDTH 17.2 % (11.5-14.5); WHITE BLOOD COUNT 8.7 10^3/uL (4.0-10.0)
[2018-10-11 10:12] LABS: ALBUMIN 3.4 GM/DL (3.2-5.2); ALBUMIN/GLOBULIN RATIO 0.97 (1.00-1.93); ALKALINE PHOSPHATASE 36 U/L (45-117); ALT/SGPT 29 U/L (12-78); ANION GAP 8 MEQ/L (8-16); AST/SGOT 22 U/L (7-37); BILIRUBIN,TOTAL 0.4 MG/DL (0.2-1.0); BLOOD UREA NITROGEN 87 MG/DL (7-18); CALCIUM LEVEL 8.9 MG/DL (8.8-10.2); CARBON DIOXIDE LEVEL 21 MEQ/L (21-32); CHLORIDE LEVEL 105 MEQ/L (98-107); CHOLESTEROL LEVEL 170 MG/DL (<200); CHOLESTEROL RISK RATIO 4.722 (<5); CREATININE FOR GFR 1.92 MG/DL (0.70-1.30); FERRITIN 103 NG/ML (26-388); FREE T4 1.18 NG/DL (0.76-1.46); GLOMERULAR FILTRATION RATE 36.5 (>42); GLUCOSE, FASTING 141 MG/DL (70-100); HDL CHOLESTEROL 36 MG/DL (>40); IRON (FE) 88 UG/DL (65-175); LDL CHOLESTEROL 101 MG/DL (<100); NON-HDL-C 134 MG/DL; POTASSIUM SERUM 4.9 MEQ/L (3.5-5.1); SODIUM LEVEL 134 MEQ/L (136-145); THYROID STIMULATING HORMONE 0.616 uIU/ML (0.358-3.740); TOTAL PROTEIN 6.9 GM/DL (6.4-8.2); TRIGLYCERIDES LEVEL 163 MG/DL (<150)
[2018-10-11 10:34] LABS: ESTIMATED AVERAGE GLUCOSE 194 MG/DL (60-110); HEMOGLOBIN A1c 8.4 %
[2018-10-11 10:47] LABS: TOTAL 25(OH) VITAMIN D 36.8 NG/ML (30.0-100.0)
== END ==
LOC: M LAB 08:34
DX: N18.9 Chronic kidney disease, unspecified (principal); D63.1 Anemia in chronic kidney disease; Z79.899 Other long term (current) drug therapy
CPT/HCPCS: 83540

== ENCOUNTER → 2018-10-26 | Outpatient (CLI) | payer MEDICARE | LOC: M RAD 07:35 | DX: Z12.2 Encounter for screening for malignant neoplasm of respiratory organs (principal); Z87.891 Personal history of nicotine dependence; R91.8 Other nonspecific abnormal finding of lung field | CPT/HCPCS: G0297 ==

== ENCOUNTER 2018-11-19 02:27 | Inpatient (IN) | payer MEDICARE ==
[~2018-11-19] VITALS: Ht 167.6 cm; Wt 77.1 kg
[~2018-11-19 02:27] MED LIST changes: +ASPI81TAEC PO; +AZIT-10 PO; -AZIT250T8 PO; +DOCU100C16 PO; -DRIS50002 PO; +DRIS50003 PO; +FERR1TAB8 PO; +FLOM0.4C39 PO; -FLOM5CAP PO; +FURO20TA2 PO; +IPRA0.00 INH; -IPRASOL4 INH; -LASI20TA PO; +LASI20TA3 PO; +LEVA250T13 PO
[2018-11-19 03:28] LABS: BASO % 0.3 % (0.0-1.0); EOS # 0.2 10^3/uL (0.0-0.50); EOS % 2.1 % (0.0-3.0); HEMATOCRIT 39.5 % (42.0-52.0); LYMPH # 0.9 10^3/uL (1.5-4.5); LYMPH % 12.3 % (24.0-44.0); MEAN CORPUSCULAR HEMOGLOBIN 28.2 pg (27.0-33.0); MEAN CORPUSCULAR HGB CONC 30.4 g/dl (32.0-36.5); MEAN CORPUSCULAR VOLUME 92.9 fl (80.0-96.0); MONO # 0.7 10^3/uL (0.0-0.8); MONO % 9.5 % (0.0-5.0); NEUTROPHILS # 5.6 10^3/uL (1.8-7.7); PLATELET COUNT, AUTOMATED 270 10^3/uL (150-450); RED BLOOD COUNT 4.25 10^6/uL (4.30-6.10); WHITE BLOOD COUNT 7.5 10^3/uL (4.0-10.0)
[2018-11-19] MEDS ORDERED: methylPREDNISolone INJ 125 MG/2 ML VIAL (J2930) IV ONE (03:30)
[2018-11-19] MEDS: IPRATROPIUM 0.5MG/ALBUTEROL 2.5MG INH SOL UD 3ML (DUONEB)(J7620) NEB PRN ×2 (03:36→10:51)
[2018-11-19 03:40] LABS: BLOOD UREA NITROGEN 54 MG/DL (7-18); CALCIUM LEVEL 8.9 MG/DL (8.8-10.2); CARBON DIOXIDE LEVEL 24 MEQ/L (21-32); CHLORIDE LEVEL 108 MEQ/L (98-107); CPK CREATINE PHOSPHOKINASE 112 U/L (39-308); CREATININE FOR GFR 1.82 MG/DL (0.70-1.30); GLOMERULAR FILTRATION RATE 38.9 (>42); GLUCOSE, FASTING 163 MG/DL (70-100); MB/CK RELATIVE INDEX 3.93 (< OR =4); NT-PRO BNP 1787 PG/ML (<450); POTASSIUM SERUM 4.5 MEQ/L (3.5-5.1); SODIUM LEVEL 141 MEQ/L (136-145); TROPONIN I < 0.02 NG/ML (< 0.10)
[2018-11-19 04:21] LABS: ABG BASE EXCESS -1.3 (-2.0-2.0); ABG HCO3 22.4 MEQ/L (22.0-26.0); ABG PARTIAL PRESSURE CO2 34.2 mmHg (35.0-45.0); ABG PARTIAL PRESSURE O2 70.4 mmHg (75.0-100.0); ABG STANDARD HCO3 23.3 MEQ/L (22.0-26.0); ABG TOTAL CO2 23.4 MEQ/L (23.0-31.0); ABG pH (ARTERIAL) 7.434 UNITS (7.350-7.450)
[2018-11-19 04:38] LABS: INFLUENZA A AMPLIFICATION NEGATIVE (NEGATIVE); INFLUENZA B AMPLIFICATION NEGATIVE (NEGATIVE)
[2018-11-19] MEDS ORDERED: IPRATROPIUM 0.5MG/ALBUTEROL 2.5MG INH SOL UD 3ML (DUONEB)(J7620) NEB ONE (06:30)
--- NOTE | 2018-11-19 07:58 | REP ---
Chest x-ray: Two views. History: Dyspnea and cough. Comparison study: September 09, 2018. Findings: The patient is status post prior median sternotomy. EKG monitoring electrodes are seen. Oxygen delivery tubing is noted. Interstitial markings are prominent diffusely. There is coarse linear fibrosis on the left. No new focal infiltrate. Electronically Signed by Ervin Lucio MD 11/19/2018 07:49 A
--- NOTE | 2018-11-19 08:30 | REP ---
CT chest without contrast: History: Shortness of breath. Comparison CT study is from October 26, 2018. Comparison is also made with chest CT study from March 24, 2017. A chest CT from March 14, [address] findings: There are advanced bilateral upper lobe emphysematous changes again noted as before. Coarse linear fibrosis is seen in the left mid upper and lower lung field also unchanged. There is a stable noncalcified 7 mm pleural-based left lower lobe lung nodule again noted unchanged from multiple prior CT studies. There is a sclerotic lesion in the left posterior T7 vertebral body 10 mm in diameter consistent with a large bone island. This is unchanged from March 2017 prior study. The patient is status post prior median sternotomy. There is a stable benign right adrenal adenoma which measures 2.2 cm in diameter. No acute infiltrate is seen. There are scattered mediastinal lymph nodes again noted essentially unchanged from April 04, 2017 prior study. Vascular calcification is noted. There are granulomatous calcifications in the liver. Impression: Advanced COPD changes with a stable areas of fibrosis. Stable 7 mm left lower lobe pulmonary nodule, left posterior T7 bone island, and right adrenal adenoma. No acute infiltrate. Stable mediastinal lymph nodes. Electronically Signed by Ervin Lucio MD 11/19/2018 08:22 A
[2018-11-19] MEDS ORDERED: INCR1INH INH (08:59)
[2018-11-19] MEDS ORDERED: XALA0.007 OU (08:59)
[2018-11-19] MEDS ORDERED: TRAZ-160 PO (08:59)
[2018-11-19] MEDS ORDERED: FISH1000 PO (08:59)
[2018-11-19] MEDS ORDERED: OMEP20CA3 PO (08:59)
[2018-11-19] MEDS ORDERED: MUCI600T31 PO (09:04)
[2018-11-19] MEDS ORDERED: ACET1TAB55 PO (09:04)
[2018-11-19] MEDS ORDERED: TYLE500T78 PO (09:04)
--- NOTE | 2018-11-19 09:42 | ECGEPIP ---
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
[2018-11-19] MEDS ORDERED: POLYVINYL ALCOHOL OPHTH SOLN 15 ML(LIQUITEARS) OU PRN (11:15)
[2018-11-19] MEDS ORDERED: guaiFENesin ER 600 MG TAB PO PRN (11:15)
[2018-11-19] MEDS: ASPIRIN 81 MG ENTERIC TAB PO SCH (11:38)
[2018-11-19] MEDS: DOCUSATE SODIUM 100 MG CAP PO SCH ×2 (11:38→20:52)
[2018-11-19] MEDS: APIXABAN 5 MG TAB (ELIQUIS) PO SCH ×2 (11:39→20:51)
[2018-11-19] MEDS: FERROUS SULFATE 325MG TAB PO SCH (11:39)
[2018-11-19] MEDS: OMEPRAZOLE 20 MG CAP PO SCH (11:40)
[2018-11-19] MEDS: FUROSEMIDE 20 MG TAB PO SCH (11:40)
[2018-11-19] MEDS: LISINOPRIL 10 MG TAB PO SCH ×2 (11:41→20:51)
[2018-11-19] MEDS: FINASTERIDE 5 MG TAB PO SCH (11:41)
[2018-11-19] MEDS: SERTRALINE HCL 50 MG TAB PO SCH (11:42)
[2018-11-19] MEDS: BISOPROLOL FUMARATE 5 MG TAB PO SCH (11:42)
[2018-11-19] MEDS: methylPREDNISolone INJ 125 MG/2 ML VIAL (J2930) IV SCH ×2 (11:42→20:50)
--- NOTE | 2018-11-19 12:06 | HPE ---
DATE OF ADMISSION: 11/19/2018 PRIMARY CARE PROVIDER: Sharon Larson ATTENDING TODAY: Dr. Kaitlin Zarate HISTORY: This is a 73-year-old man who presents to [facility] Emergency Room with a 3-day history of increased shortness of breath, cough, and difficulty with sleep. He states that all these symptoms have been present for some time, although have worsened recently. He denies any fevers or chills. He has minimal to no sputum production. He is quite frustrated with his persistent difficulty with lack of sleep. He has a history of known chronic obstructive pulmonary disease (COPD) with chronic respiratory failure requiring nocturnal oxygen as well as pulmonary nodules and known coronary artery disease. PAST MEDICAL HISTORY: Includes; Chronic respiratory failure. Advanced COPD, management by Dr. Brito at pulmonary. History nicotine dependence, quit in 2009. Diabetes mellitus type 2, insulin dependent. Depression. Anxiety. Insomnia. Coronary artery disease. Status post myocardial infarction (AR), coronary artery bypass graft (CABG) in 2009. Peripheral arterial disease. He refuses further intervention. History of paroxysmal atrial fibrillation. Iron-deficiency anemia. Hypertension. Hyperlipidemia. Tubular adenoma, hyperplastic polyp on colonoscopy. Follows with Dr. Gaines. Chronic kidney disease stage III. Baseline serum creatinine is 1.4 to 1.7. Follows with [facility]. Urinary retention. Anemia of chronic disease. CURRENT MEDICATIONS: Include; - DuoNebs every 6 hours and every 2 hours as needed for shortness of breath - Colace 100 mg twice daily - Zebeta 5 mg daily - Humalog sliding scale - Flomax 0.4 mg once daily - omeprazole 20 mg daily - Lasix 40 mg daily - aspirin 81 mg daily - Zoloft 50 mg daily - Proscar 5 mg daily - Extra Strength Tylenol 500 mg two tablets before bed - Latanoprost 0.005% one drop each eye before bed - fish oil 1000 mg twice daily - Combivent 103/18 two puffs every 4 hours as needed for shortness of breath - Incruse Ellipta 62.5 inhaled once daily - Advair 500/50 one puff twice daily - Eliquis 5 mg twice a day - Lisinopril 10 mg twice a day - trazodone 50 mg by mouth nightly - Crestor 1 mg daily - Xanax 0.25 mg three times daily as needed for anxiety - Lantus 22 units subcu nightly - fenofibrate 160 mg daily - Mucinex 600 mg twice daily REVIEW OF SYSTEMS: Patient denies any lightheadedness, dizziness, any recurrent headache, significant changes in his vision or hearing, any mouth sores or lesions. He has no sore throat or rhinorrhea. He denies any chest pain or palpitations. He has not had any lower extremity swelling. He is moving his bowels regularly without diarrhea or constipation. He has had no melena or hematochezia. He denies nausea, vomiting, heartburn, or indigestion. He has no numbness or tingling. He has chronic bilateral lower extremity leg pain, worsened with ambulation requiring frequent resting. SOCIAL HISTORY: He is a former smoker. He quit in 2009. He does not drink any alcohol. No recreational drug use. He drinks 4-5 cups of coffee daily. He lives at home alone. Follows no-added salt, no-concentrated sweets diet. His family history is noncontributory. His immunizations he is current on are influenza as well as pneumococcal. PHYSICAL EXAM: VITAL SIGNS: Blood pressure of 172/68. Respirations are 20. Pulse is 84. Temperature is 97.8. Pulse oximetry is 91% on 1-1/2 liters. In general, this is an elderly male who appears fatigued, chronically ill. HEENT: Head is normocephalic, atraumatic. Pupils are equal, round, reactive to light and accommodation. Oropharynx is pink and moist. NECK: Is supple without lymphadenopathy or thyromegaly. LUNGS: Are markedly diminished throughout. He has a few end-expiratory wheezes. CARDIOVASCULAR: Is regular rate and rhythm. No audible murmur. ABDOMEN: Is soft and nontender, has positive bowel sounds. EXTREMITIES: Are without edema. INVESTIGATIONS: Reveal a WBC of 7.5, hemoglobin 12, hematocrit 39.5, platelets 270. Sodium is 141, potassium is 4.5, chloride is 108, carbon dioxide is 24, BUN 54, creatinine is 1.82, fasting glucose 163. BNP 1787, lactic acid 1.6. IMAGING: Reveals a chest CT with advanced COPD. Stable areas of fibrosis. Stable 7 cm left lower lobe pulmonary nodule. Right adrenal adenoma. Stable mediastinal lymph nodes. ASSESSMENT AND PLAN: 1. Mild chronic obstructive pulmonary disease (COPD) exacerbation. I will admit to medical-surgical. Start him on intravenous (IV) Solu-Medrol. Continue with nebulizers. Monitor his O2 saturations and allow for titration of oxygen to maintain his saturations between 88 and 92%. I anticipate he will be ready for discharge on Thursday or Thursday. The patient is aware of this as a plan. Continue his home respiratory medications. 2. Coronary artery disease. Will continue his home medications that are available here in the hospital. His statin will be resumed at discharge. 3. Insomnia. I have increased his trazodone from 50 mg to 100 mg. Use caution with titration or use of sedation as the patient has known apneic episodes occurring with sleep that he has refused further investigation or treatment of. 4. Diabetes mellitus type 2. Will continue his home insulin as well as sliding scale insulin coverage while inpatient. DISPOSITION: Patient will be admitted to medical-surgical observation.
[2018-11-19 13:40] VITALS: BP 136/72
[2018-11-19] MEDS: IPRATROPIUM 0.5MG/ALBUTEROL 2.5MG INH SOL UD 3ML (DUONEB)(J7620) NEB SCH ×2 (14:20→21:17)
[2018-11-19] MEDS ORDERED: DEXTROSE 50% 50 ML SYRINGE IV PRN (17:15)
[2018-11-19] MEDS ORDERED: GLUCOSE 4 GM CHEW TABLET PO PRN (17:15)
[2018-11-19] MEDS ORDERED: GLUCAGON FOR INJ 1 MG VIAL (J1610) SC PRN (17:15)
[2018-11-19] MEDS: HumaLOG INSULIN (NovoLOG) PER UNIT SC SCH ×2 (17:29→20:51)
[2018-11-19] MEDS: LATANOPROST 0.005% OPHTH SOLN 2.5 ML OU SCH (20:50)
[2018-11-19] MEDS: TAMSULOSIN 0.4 MG CAP PO SCH (20:52)
[2018-11-19] MEDS ORDERED: LEVEMIR (INSULIN DETEMIR) 1 UNITS/0.01ML SC SCH (21:00)
[2018-11-19 22:00] VITALS: BP 119/56
[2018-11-19] MEDS: ACETAMINOPHEN TAB 650MG DOSE (2X325MG) PO PRN (22:29)
[2018-11-19] MEDS: traZODone 100 MG TAB PO PRN (23:16)
[2018-11-19] MEDS: LIDOCAINE 5% (LIDODERM) PATCH TD SCH (23:16)
[2018-11-20] MEDS: ALPRAZolam 0.25 MG TAB PO PRN (00:01)
[2018-11-20] MEDS: IPRATROPIUM 0.5MG/ALBUTEROL 2.5MG INH SOL UD 3ML (DUONEB)(J7620) NEB PRN ×2 (00:09→18:08)
[2018-11-20] MEDS: IPRATROPIUM 0.5MG/ALBUTEROL 2.5MG INH SOL UD 3ML (DUONEB)(J7620) NEB SCH ×4 (02:00→21:52)
[2018-11-20] MEDS: methylPREDNISolone INJ 125 MG/2 ML VIAL (J2930) IV SCH ×3 (03:55→21:59)
[2018-11-20 06:00] VITALS: BP 119/58
[2018-11-20 06:36] LABS: EOS % 0.2 % (0.0-3.0); HEMATOCRIT 32.8 % (42.0-52.0); HEMOGLOBIN 10.3 g/dl (13.5-17.5); LYMPH # 0.3 10^3/uL (1.5-4.5); LYMPH % 4.2 % (24.0-44.0); MEAN CORPUSCULAR HEMOGLOBIN 28.3 pg (27.0-33.0); MEAN CORPUSCULAR HGB CONC 31.4 g/dl (32.0-36.5); MEAN CORPUSCULAR VOLUME 90.1 fl (80.0-96.0); MONO # 0.2 10^3/uL (0.0-0.8); MONO % 2.3 % (0.0-5.0); NEUTROPHILS # 6.2 10^3/uL (1.8-7.7); NEUTROPHILS % 92.5 % (36.0-66.0); PLATELET COUNT, AUTOMATED 226 10^3/uL (150-450); RED BLOOD COUNT 3.64 10^6/uL (4.30-6.10); WHITE BLOOD COUNT 6.7 10^3/uL (4.0-10.0)
[2018-11-20 07:10] LABS: ALBUMIN 2.8 GM/DL (3.2-5.2); BILIRUBIN,TOTAL 0.5 MG/DL (0.2-1.0); CALCIUM LEVEL 8.7 MG/DL (8.8-10.2); CREATININE FOR GFR 1.92 MG/DL (0.70-1.30); GLOMERULAR FILTRATION RATE 36.5 (>42); POTASSIUM SERUM 4.5 MEQ/L (3.5-5.1); TOTAL PROTEIN 6.5 GM/DL (6.4-8.2)
[2018-11-20] MEDS: HumaLOG INSULIN (NovoLOG) PER UNIT SC SCH ×4 (08:01→22:01)
[2018-11-20] MEDS: BISOPROLOL FUMARATE 5 MG TAB PO SCH (08:01)
[2018-11-20] MEDS: OMEPRAZOLE 20 MG CAP PO SCH (08:02)
[2018-11-20] MEDS: APIXABAN 5 MG TAB (ELIQUIS) PO SCH ×2 (08:02→22:02)
[2018-11-20] MEDS: SERTRALINE HCL 50 MG TAB PO SCH (08:02)
[2018-11-20] MEDS: FERROUS SULFATE 325MG TAB PO SCH (08:02)
[2018-11-20] MEDS: LISINOPRIL 10 MG TAB PO SCH ×2 (08:02→22:02)
[2018-11-20] MEDS: FINASTERIDE 5 MG TAB PO SCH (08:02)
[2018-11-20] MEDS: FUROSEMIDE 20 MG TAB PO SCH (08:02)
[2018-11-20] MEDS: **NOTE PATIENT COMMENT** MISC XX SCH (08:03)
[2018-11-20] MEDS: ASPIRIN 81 MG ENTERIC TAB PO SCH (08:03)
[2018-11-20] MEDS: DOCUSATE SODIUM 100 MG CAP PO SCH ×2 (08:03→22:01)
[2018-11-20] MEDS ORDERED: ENOXAPARIN 30 MG/0.3 ML SYR (J1650) SC SCH (09:00)
--- NOTE | 2018-11-20 15:14 | IPN ---
DATE: 11/20/2018 Resident is seen today [facility]. He is being treated for chronic obstructive pulmonary disease (COPD) exacerbation. He says his breathing is doing better. He does have some cough. He is not raising up any phlegm. Not having any chest pain. No nausea or vomiting. He says he has not been sleeping well recently, although when I walked in the room he was sleeping quite soundly in the afternoon. He has not had any fevers, chills, or sweats. Current medication regimen: He is on Levemir, latanoprost eyedrops, Flomax, Humalog coverage, Lidoderm patch. He has as-needed medications for hypoglycemia. He is getting DuoNeb [id number]. He is on Solu-Medrol 80 mg every 8 hours. He has as-needed DuoNeb. He has got as-needed alprazolam, artificial tears, Mucinex DM. He is on trazodone, Eliquis, aspirin, Zebeta, Colace, iron, Proscar, furosemide, lisinopril, Prilosec, and Zoloft. On examination, temperature is 98.1, blood pressure 136/62, pulse 83, respirations 20, oxygen saturation is in the 90s on 1 liter nasal cannula. He is alert, oriented, pleasant, and cooperative. Does not appear in any distress. Eyes are clear. Speech is clear. Mucous membranes are moist. There are no neck masses, tenderness, or adenopathy. No carotid bruits. Lungs show end- expiratory wheezing at the bases primarily. Reduced breath sounds otherwise. Heart has slightly irregular rhythm without any murmur, click, or gallop. Abdomen soft and nontender without any masses or organomegaly. Bowel sounds are sound active. There is no tremor or spasticity. There is no edema of note today. Hemoglobin is 10.3, which is a drop from yesterday. White count 6700. Blood sugar when last check was 457. ASSESSMENT: 1. Chronic obstructive pulmonary disease (COPD) exacerbation. He seems to have improved since his admission. 2. Coronary artery disease. No symptoms at this time. 3. Chronic insomnia. He seems to be sleeping well in the afternoon. 4. Diabetes mellitus. His blood sugars have been up, most likely due to steroid therapy, and he will be getting more Levemir and continue on the NovoLog coverage. 5. Glaucoma. 6. Dry eyes. 6. Atrial fibrillation. PLAN: The patient will continue on the above medications. He seems to be responding to the current treatment. We will continue to monitor his labs. I anticipate he is going to need at least another 48 hours in the hospital. YARON
[2018-11-20] MEDS ORDERED: LEVEMIR (INSULIN DETEMIR) 1 UNITS/0.01ML SC SCH (21:00)
[2018-11-20 22:00] VITALS: BP 133/60
[2018-11-20] MEDS: LIDOCAINE 5% (LIDODERM) PATCH TD SCH (22:00)
[2018-11-20] MEDS: ACETAMINOPHEN TAB 650MG DOSE (2X325MG) PO PRN (22:01)
[2018-11-20] MEDS: traZODone 100 MG TAB PO PRN (22:02)
[2018-11-20] MEDS: TAMSULOSIN 0.4 MG CAP PO SCH (22:02)
[2018-11-20] MEDS: LATANOPROST 0.005% OPHTH SOLN 2.5 ML OU SCH (22:04)
[2018-11-21] MEDS: IPRATROPIUM 0.5MG/ALBUTEROL 2.5MG INH SOL UD 3ML (DUONEB)(J7620) NEB SCH ×5 (01:39→22:57)
[2018-11-21] MEDS: IPRATROPIUM 0.5MG/ALBUTEROL 2.5MG INH SOL UD 3ML (DUONEB)(J7620) NEB PRN (03:55)
[2018-11-21] MEDS: methylPREDNISolone INJ 125 MG/2 ML VIAL (J2930) IV SCH ×3 (04:15→20:52)
[2018-11-21 06:00] VITALS: BP 158/63
[2018-11-21] MEDS: FERROUS SULFATE 325MG TAB PO SCH (08:22)
[2018-11-21] MEDS: LISINOPRIL 10 MG TAB PO SCH ×2 (08:22→20:52)
[2018-11-21] MEDS: BISOPROLOL FUMARATE 5 MG TAB PO SCH (08:22)
[2018-11-21] MEDS: OMEPRAZOLE 20 MG CAP PO SCH (08:22)
[2018-11-21] MEDS: SERTRALINE HCL 50 MG TAB PO SCH (08:22)
[2018-11-21] MEDS: APIXABAN 5 MG TAB (ELIQUIS) PO SCH ×2 (08:22→20:54)
[2018-11-21] MEDS: HumaLOG INSULIN (NovoLOG) PER UNIT SC SCH ×4 (08:22→20:53)
[2018-11-21] MEDS: ASPIRIN 81 MG ENTERIC TAB PO SCH (08:22)
[2018-11-21] MEDS: FUROSEMIDE 20 MG TAB PO SCH (08:22)
[2018-11-21] MEDS: FINASTERIDE 5 MG TAB PO SCH (08:22)
[2018-11-21] MEDS: DOCUSATE SODIUM 100 MG CAP PO SCH ×2 (08:23→20:51)
[2018-11-21] MEDS: **NOTE PATIENT COMMENT** MISC XX SCH (08:23)
[2018-11-21] MEDS: guaiFENesin ER 600 MG TAB PO SCH ×2 (13:44→20:51)
[2018-11-21] MEDS: TAMSULOSIN 0.4 MG CAP PO SCH (20:51)
[2018-11-21] MEDS: LIDOCAINE 5% (LIDODERM) PATCH TD SCH (20:54)
[2018-11-21] MEDS: LEVEMIR (INSULIN DETEMIR) 1 UNITS/0.01ML SC SCH (20:54)
[2018-11-21] MEDS: LATANOPROST 0.005% OPHTH SOLN 2.5 ML OU SCH (20:55)
[2018-11-21] MEDS: traZODone 100 MG TAB PO PRN (21:05)
[2018-11-21 22:00] VITALS: BP 136/65
[2018-11-22] MEDS: methylPREDNISolone INJ 125 MG/2 ML VIAL (J2930) IV SCH (04:03)
[2018-11-22] MEDS: ACETAMINOPHEN TAB 650MG DOSE (2X325MG) PO PRN ×3 (05:57→21:44)
[2018-11-22 06:00] VITALS: BP 131/63
[2018-11-22] MEDS: IPRATROPIUM 0.5MG/ALBUTEROL 2.5MG INH SOL UD 3ML (DUONEB)(J7620) NEB SCH ×3 (06:12→13:51)
[2018-11-22 06:18] LABS: HEMOGLOBIN 10.4 g/dl (13.5-17.5); LYMPH # 0.3 10^3/uL (1.5-4.5); LYMPH % 3.3 % (24.0-44.0); MEAN CORPUSCULAR HEMOGLOBIN 28.8 pg (27.0-33.0); MEAN CORPUSCULAR HGB CONC 31.5 g/dl (32.0-36.5); MEAN CORPUSCULAR VOLUME 91.4 fl (80.0-96.0); MONO # 0.4 10^3/uL (0.0-0.8); MONO % 4.3 % (0.0-5.0); NEUTROPHILS # 7.4 10^3/uL (1.8-7.7); NEUTROPHILS % 91.5 % (36.0-66.0); PLATELET COUNT, AUTOMATED 239 10^3/uL (150-450); RED BLOOD COUNT 3.61 10^6/uL (4.30-6.10); WHITE BLOOD COUNT 8.1 10^3/uL (4.0-10.0)
[2018-11-22 06:39] LABS: CALCIUM LEVEL 8.5 MG/DL (8.8-10.2); CREATININE FOR GFR 1.65 MG/DL (0.70-1.30); GLOMERULAR FILTRATION RATE 43.5 (>42); POTASSIUM SERUM 5.3 MEQ/L (3.5-5.1)
--- NOTE | 2018-11-22 07:41 | IPN ---
DATE: 11/21/2017 The patient is seen today on [facility]. We are treating him for a chronic obstructive pulmonary disease (COPD) exacerbation. He says he feels a little bit better than yesterday and definitely lot better than when he was admitted. His coughing some at times, not raising any phlegm. He is not having any chest pains. No nausea, vomiting, abdominal pains. He says he does tend to get edema readily but at this very moment, there is no edema. He says he slept quite well last night. Interestingly it seems that the major change in terms of his medications for sleep was that his trazodone was increased from 50 mg as an outpatient to 100 mg here. He remains on Levemir 28 units, Lidoderm patch, Xalatan eye drops, tamsulosin 0.4 mg at bedtime. He is on Humalog. As needed medications for hypoglycemia. He is on scheduled DuoNebs, getting Solu-Medrol 80 mg IV every 8 hours with as needed available. He does have Xanax available for anxiety but it does not appear that he is taking that since very early Thursday morning. Also has as needed Mucinex, as needed trazodone, Eliquis, aspirin, Zebeta, docusate, iron, Proscar, furosemide, Prinivil, Prilosec and Zoloft. On examination his temperature is 98.2, pulse is 61 and irregular, respirations 20, blood pressure 158/63, O2 saturation is 96% on 1 liter nasal cuff cannula. He looks quite comfortable at rest. He is wearing his nasal oxygen. When he coughs though, he does sound relatively tight. But not in distress. Eyes are clear. No facial weakness. No neck masses, tenderness or adenopathy. No carotid bruits. No jugular venous distention. Lungs show diffuse expiratory wheezing. Heart has an irregular rhythm without any murmur, click or gallop. Abdomen is soft, protuberant, nontender without any masses or organomegaly. There is no edema at this time. It does not appear that there were any labs done today other than his blood sugar which at noon was 471. ASSESSMENT: 1. COPD exacerbation. 2. Coronary artery disease. No current symptoms. 3. Chronic insomnia improve. 4. Diabetes mellitus. Blood sugars increased due to steroid therapy. 5. Glaucoma stable. 6. Dry eyes, stable. 7. Atrial fibrillation. PLAN: Resident's insulin was increased further. Continue to monitor his labs and blood sugars. Not a candidate yet for consideration of discharge. I am going to make his expectorant medication scheduled instead of [id number]. YARON
[2018-11-22] MEDS: HumaLOG INSULIN (NovoLOG) PER UNIT SC SCH ×4 (08:07→21:44)
[2018-11-22] MEDS: FUROSEMIDE 20 MG TAB PO SCH (08:08)
[2018-11-22] MEDS: ASPIRIN 81 MG ENTERIC TAB PO SCH (08:08)
[2018-11-22] MEDS: FERROUS SULFATE 325MG TAB PO SCH (08:08)
[2018-11-22] MEDS: LISINOPRIL 10 MG TAB PO SCH ×2 (08:08→21:43)
[2018-11-22] MEDS: DOCUSATE SODIUM 100 MG CAP PO SCH ×2 (08:09→21:42)
[2018-11-22] MEDS: FINASTERIDE 5 MG TAB PO SCH (08:09)
[2018-11-22] MEDS: SERTRALINE HCL 50 MG TAB PO SCH (08:09)
[2018-11-22] MEDS: APIXABAN 5 MG TAB (ELIQUIS) PO SCH ×2 (08:09→21:42)
[2018-11-22] MEDS: OMEPRAZOLE 20 MG CAP PO SCH (08:09)
[2018-11-22] MEDS: **NOTE PATIENT COMMENT** MISC XX SCH (08:09)
[2018-11-22] MEDS: guaiFENesin ER 600 MG TAB PO SCH ×2 (08:09→21:43)
[2018-11-22] MEDS: BISOPROLOL FUMARATE 5 MG TAB PO SCH (08:09)
--- NOTE | 2018-11-22 09:01 | IPNPDOC ---
Subjective Date Seen The patient was seen on 11/22/18. Subjective Chief Complaint/HPI SOB Events since last encounter remains oxygen dependent. c/o dyspnea and cough. Receiving duonebs q 6 hrs. Constitutional: Denies: Chills, Fever, Night Sweats Pulmonary: Reports: Dyspnea, Cough Cardiovascular: Denies: Chest Pain, Palpitations, Orthopnea, Paroxysmal Noc. Dyspnea, Lt Headedness Gastrointestinal: Denies: Nausea, Vomiting, Abdominal Pain, Diarrhea, Constipation Genitourinary: Denies: Dysuria, Frequency, Incontinence, Retention Objective Physical Examination General Exam: Positive: Alert, No Acute Distress Neck Exam: Positive: Supple; Negative: JVD, thyromegaly Chest Exam: Positive: Rhonchi, Wheezing Heart Exam: Positive: Rate Normal, Regular Rhythm, Normal S1, Normal S2; Negative: Murmurs, Rubs Abdomen Exam: Positive: Normal bowel sounds, Soft; Negative: Tenderness, Hepatospenomegaly Skin Exam: Positive: Nl turgor and temperature; Negative: Rash, Breakdown Psych Exam: Positive: Mental status NL, Mood NL, Oriented x 3 Assessment /Plan Problems (1) Hyponatremia Problem Text: 11/22 131; 2 pseudo 2 hyperglycemia, loop diuretic (fur held)-tf baseline 138-140 (2) COPD with exacerbation Status: Acute Problem Text: wean oxygen to keep sats between 88-92%. Repeat CXR today. Wean solumedrol to po Prednisone. Continue duonebs. (3) Pulmonary fibrosis Status: Chronic (4) Diastolic CHF, chronic Problem Text: EF 65% from echo 2013. Takes furosemide 40 mg po daily. on HOLD today due to hyponatremia (5) CAD (coronary artery disease) Status: Chronic Response to Treatment: Stable (6) HTN (hypertension) Status: Chronic Response to Treatment: Stable (7) CKD (chronic kidney disease), stage III Status: Chronic Response to Treatment: Stable (8) DM2 (diabetes mellitus, type 2) Status: Chronic Problem Text: HD glar 22 11/22 BG mid 300-mid 400s on det 32 (GC dose decreased) (9) Paroxysmal atrial fibrillation Status: Chronic Problem Text: rate controlled. on Apixaban 5 mg po bid (10) BPH loc w urin obs/LUTS Status: Chronic Plan/VTE VTE Prophylaxis Ordered?: Yes VS, I&O, 24H, Fishbone Vital Signs/I&O Vital Signs Date Time Temp Pulse Resp B/P (MAP) Pulse Ox O2 Delivery O2 Flow Rate FiO2 11/22/18 08:09 75 131/63 11/22/18 06:02 Nasal Cannula 2.0 11/22/18 06:00 98.0 16 94 I&O- Last 24 Hours up to 6 AM 11/22/18 05:59 Intake Total 3300 ml Output Total 3650 ml Balance -350 ml Laboratory Data 24H LABS Laboratory Tests 2 11/21/18 11:48: Bedside Glucose (Misc Panel) 471H 11/21/18 16:39: Bedside Glucose (Misc Panel) 454H 11/21/18 20:30: Bedside Glucose (Misc Panel) 373H 11/22/18 05:29: Bedside Glucose (Misc Panel) 258H 11/22/18 05:39: Immature Granulocyte % (Auto) 0.9, White Blood Count 8.1, Red Blood Count 3.61L, Hemoglobin 10.4L, Hematocrit 33.0L, Mean Corpuscular Volume 91.4, Mean Corpuscular Hemoglobin 28.8, Mean Corpuscular Hemoglobin Concent 31.5L, Red Cell Distribution Width 17.4H, Platelet Count 239, Neutrophils (%) (Auto) 91.5H, Lymphocytes (%) (Auto) 3.3L, Monocytes (%) (Auto) 4.3, Eosinophils (%) (Auto) 0.0, Basophils (%) (Auto) 0.0, Neutrophils # (Auto) 7.4, Lymphocytes # (Auto) 0.3L, Monocytes # (Auto) 0.4, Eosinophils # (Auto) 0.0, Basophils # (Auto) 0.0, Nucleated Red Blood Cells % (auto) 0.0, Anion Gap 8, Glomerular Filtration Rate 43.5, Blood Urea Nitrogen 65H, Creatinine 1.65H, Sodium Level 132L, Potassium Level 5.3H, Chloride Level 101, Carbon Dioxide Level 23, Calcium Level 8.5L CBC/BMP Laboratory Tests 11/22/18 05:39 Red Blood Count 3.61 L, Mean Corpuscular Volume 91.4, Mean Corpuscular Hemoglobin 28.8, Mean Corpuscular Hemoglobin Concent 31.5 L, Red Cell Distribution Width 17.4 H, Neutrophils (%) (Auto) 91.5 H, Lymphocytes (%) (Auto) 3.3 L, Monocytes (%) (Auto) 4.3, Eosinophils (%) (Auto) 0.0, Basophils (%) (Auto) 0.0, Neutrophils # (Auto) 7.4, Lymphocytes # (Auto) 0.3 L, Monocytes # (Auto) 0.4, Eosinophils # (Auto) 0.0, Basophils # (Auto) 0.0, Calcium Level 8.5 L Microbiology Microbiology 11/19/18 Blood Culture - Preliminary, Resulted No Growth after 72 hours. All specime... 11/19/18 Blood Culture - Preliminary, Resulted No Growth after 72 hours. All specime... Claudia Snyder Nov 22, 2018 09:01 Cheo Lang M.D. Nov 22, 2018 16:38
[2018-11-22 13:55] LABS: CALCIUM LEVEL 8.2 MG/DL (8.8-10.2); CREATININE FOR GFR 1.76 MG/DL (0.70-1.30); GLOMERULAR FILTRATION RATE 40.4 (>42); POTASSIUM SERUM 5.1 MEQ/L (3.5-5.1)
[2018-11-22 14:00] VITALS: BP 132/62
[2018-11-22] MEDS: predniSONE 20 MG TAB PO SCH (18:40)
[2018-11-22] MEDS: TAMSULOSIN 0.4 MG CAP PO SCH (21:42)
[2018-11-22] MEDS: traZODone 100 MG TAB PO PRN (21:42)
[2018-11-22] MEDS: LEVEMIR (INSULIN DETEMIR) 1 UNITS/0.01ML SC SCH (21:43)
[2018-11-22] MEDS: LATANOPROST 0.005% OPHTH SOLN 2.5 ML OU SCH (21:44)
[2018-11-22] MEDS: LIDOCAINE 5% (LIDODERM) PATCH TD SCH (21:44)
[2018-11-22 22:00] VITALS: BP 136/64
[2018-11-23] MEDS: IPRATROPIUM 0.5MG/ALBUTEROL 2.5MG INH SOL UD 3ML (DUONEB)(J7620) NEB SCH ×4 (00:51→22:27)
[2018-11-23 06:00] VITALS: BP 154/63
[2018-11-23] MEDS: predniSONE 20 MG TAB PO SCH ×2 (06:08→18:37)
[2018-11-23 06:15] LABS: BASO % 0.1 % (0.0-1.0); HEMATOCRIT 32.8 % (42.0-52.0); HEMOGLOBIN 10.5 g/dl (13.5-17.5); LYMPH % 2.1 % (24.0-44.0); MEAN CORPUSCULAR HEMOGLOBIN 28.7 pg (27.0-33.0); MEAN CORPUSCULAR VOLUME 89.6 fl (80.0-96.0); MONO # 0.8 10^3/uL (0.0-0.8); MONO % 7.1 % (0.0-5.0); NEUTROPHILS # 10.2 10^3/uL (1.8-7.7); NEUTROPHILS % 90.2 % (36.0-66.0); PLATELET COUNT, AUTOMATED 244 10^3/uL (150-450); RED BLOOD COUNT 3.66 10^6/uL (4.30-6.10); WHITE BLOOD COUNT 11.3 10^3/uL (4.0-10.0)
[2018-11-23 06:38] LABS: CALCIUM LEVEL 8.5 MG/DL (8.8-10.2); CREATININE FOR GFR 1.71 MG/DL (0.70-1.30); GLOMERULAR FILTRATION RATE 41.8 (>42); POTASSIUM SERUM 5.7 MEQ/L (3.5-5.1)
[2018-11-23 06:49] LABS: LYMPH # 0.2 10^3/uL (1.5-4.5)
--- NOTE | 2018-11-23 08:52 | IPNPDOC ---
Subjective Date Seen The patient was seen on 11/23/18. Subjective Chief Complaint/HPI Pt this morning states that he feels his cough and breathing is worse, started worsening yest. Denies fevers or chills. Slept well last night. General: Reports: Fatigue Constitutional: Denies: Chills, Fever Skin: Denies: Rash Pulmonary: Reports: Dyspnea, Cough Cardiovascular: Denies: Chest Pain, Palpitations Gastrointestinal: Denies: Nausea, Vomiting, Abdominal Pain, Diarrhea Musculoskeletal: Reports: Shoulder Pain Neurological: Reports: Weakness Psych: Reports: Mood Normal Objective Physical Examination General Exam: Positive: Alert, No Acute Distress Neck Exam: Positive: Supple; Negative: JVD, thyromegaly Chest Exam: Positive: Rhonchi, Wheezing Heart Exam: Positive: Rate Normal, Regular Rhythm, Normal S1, Normal S2; Negative: Murmurs, Rubs Abdomen Exam: Positive: Normal bowel sounds, Soft; Negative: Tenderness, Hepatospenomegaly Skin Exam: Positive: Nl turgor and temperature; Negative: Rash, Breakdown Psych Exam: Positive: Mental status NL, Mood NL, Oriented x 3 Assessment /Plan Problems (1) Hyponatremia Problem Text: 11/23 Na 131 today. Furosemide held. 11/22 131; 2 pseudo 2 hyperglycemia, loop diuretic (fur held)-tf baseline 138-140 (2) COPD with exacerbation Status: Acute Problem Text: 11/23 CXR today, solumedrol changed to Pred yest, monitor. 11/22 wean oxygen to keep sats between 88-92%. Repeat CXR today. Wean solumedrol to po Prednisone. Continue duonebs. (3) Pulmonary fibrosis Status: Chronic (4) Diastolic CHF, chronic Problem Text: EF 65% from echo 2013. Takes furosemide 40 mg po daily. on HOLD today due to hyponatremia (5) CAD (coronary artery disease) Status: Chronic Response to Treatment: Stable (6) HTN (hypertension) Status: Chronic Response to Treatment: Stable (7) CKD (chronic kidney disease), stage III Status: Chronic Response to Treatment: Stable (8) DM2 (diabetes mellitus, type 2) Status: Chronic Problem Text: HD glar 22 11/22 BG mid 300-mid 400s on det 32 (GC dose decreased) (9) Paroxysmal atrial fibrillation Status: Chronic Problem Text: rate controlled. on Apixaban 5 mg po bid (10) BPH loc w urin obs/LUTS Status: Chronic Plan/VTE VTE Prophylaxis Ordered?: Yes VS, I&O, 24H, Fishbone Vital Signs/I&O Vital Signs Date Time Temp Pulse Resp B/P (MAP) Pulse Ox O2 Delivery O2 Flow Rate FiO2 11/23/18 06:00 98.0 87 20 154/63 (93) 94 Nasal Cannula 2.0 I&O- Last 24 Hours up to 6 AM 11/23/18 06:00 Intake Total 1340 ml Output Total 2875 ml Balance -1535 ml Laboratory Data 24H LABS Laboratory Tests 2 11/22/18 11:40: Bedside Glucose (Misc Panel) 357H 11/22/18 11:56: Anion Gap 9, Glomerular Filtration Rate 40.4L, Blood Urea Nitrogen 68H, Creatinine 1.76H, Sodium Level 131L, Potassium Level 5.1, Chloride Level 100, Carbon Dioxide Level 22, Calcium Level 8.2L 11/22/18 17:10: Bedside Glucose (Misc Panel) 352H 11/22/18 20:38: Bedside Glucose (Misc Panel) 303H 11/23/18 05:55: Immature Granulocyte % (Auto) 0.5, White Blood Count 11.3H, Red Blood Count 3.66L, Hemoglobin 10.5L, Hematocrit 32.8L, Mean Corpuscular Volume 89.6, Mean Corpuscular Hemoglobin 28.7, Mean Corpuscular Hemoglobin Concent 32.0, Red Cell Distribution Width 17.5H, Platelet Count 244, Neutrophils (%) (Auto) 90.2H, Lymphocytes (%) (Auto) 2.1L, Monocytes (%) (Auto) 7.1H, Eosinophils (%) (Auto) 0.0, Basophils (%) (Auto) 0.1, Neutrophils # (Auto) 10.2H, Lymphocytes # (Auto) 0.2L, Monocytes # (Auto) 0.8, Eosinophils # (Auto) 0.0, Basophils # (Auto) 0.0, Nucleated Red Blood Cells % (auto) 0.0, Anion Gap 9, Glomerular Filtration Rate 41.8L, Blood Urea Nitrogen 69H, Creatinine 1.71H, Sodium Level 131L, Potassium Level 5.7H, Chloride Level 100, Carbon Dioxide Level 22, Calcium Level 8.5L CBC/BMP Laboratory Tests 11/22/18 11:56 Calcium Level 8.2 L 11/23/18 05:55 Calcium Level 8.5 L, Red Blood Count 3.66 L, Mean Corpuscular Volume 89.6, Mean Corpuscular Hemoglobin 28.7, Mean Corpuscular Hemoglobin Concent 32.0, Red Cell Distribution Width 17.5 H, Neutrophils (%) (Auto) 90.2 H, Lymphocytes (%) (Auto) 2.1 L, Monocytes (%) (Auto) 7.1 H, Eosinophils (%) (Auto) 0.0, Basophils (%) (Auto) 0.1, Neutrophils # (Auto) 10.2 H, Lymphocytes # (Auto) 0.2 L, Monocytes # (Auto) 0.8, Eosinophils # (Auto) 0.0, Basophils # (Auto) 0.0 Microbiology Microbiology 11/19/18 Blood Culture - Preliminary, Resulted No Growth after 72 hours. All specime... 11/19/18 Blood Culture - Preliminary, Resulted No Growth after 72 hours. All specime... ZOEY GILBERT PA-C Nov 23, 2018 08:52
[2018-11-23] MEDS: **NOTE PATIENT COMMENT** MISC XX SCH (09:00)
[2018-11-23] MEDS: FINASTERIDE 5 MG TAB PO SCH (09:37)
[2018-11-23] MEDS: FERROUS SULFATE 325MG TAB PO SCH (09:37)
[2018-11-23] MEDS: HumaLOG INSULIN (NovoLOG) PER UNIT SC SCH ×4 (09:37→20:20)
[2018-11-23] MEDS: guaiFENesin ER 600 MG TAB PO SCH ×2 (09:37→20:21)
[2018-11-23] MEDS: OMEPRAZOLE 20 MG CAP PO SCH (09:37)
[2018-11-23] MEDS: DOCUSATE SODIUM 100 MG CAP PO SCH ×2 (09:37→20:21)
[2018-11-23] MEDS: ASPIRIN 81 MG ENTERIC TAB PO SCH (09:37)
[2018-11-23] MEDS: SERTRALINE HCL 50 MG TAB PO SCH (09:37)
[2018-11-23] MEDS: APIXABAN 5 MG TAB (ELIQUIS) PO SCH ×2 (09:37→20:21)
[2018-11-23] MEDS: BISOPROLOL FUMARATE 5 MG TAB PO SCH (09:38)
[2018-11-23] MEDS: LISINOPRIL 10 MG TAB PO SCH ×2 (09:38→20:25)
[2018-11-23] MEDS: FUROSEMIDE 20 MG TAB PO SCH (09:38)
--- NOTE | 2018-11-23 09:42 | REP ---
Chest two views HISTORY: Cough Comparison: 11/19/2018 A diffuse increase in interstitial markings is present in the lungs consistent with chronic interstitial fibrosis. Patchy density is present in the right upper lobe consistent with an infiltrate. Curvilinear densities are present in the left lower lobe consistent with scar. The heart is normal in size. The pulmonary vasculature is normal in appearance. The bony structure is intact. IMPRESSION: 1. Chronic interstitial fibrosis. 2. Right upper lobe infiltrate. Electronically Signed by Obi Blunt MD 11/23/2018 09:33 A
[2018-11-23] MEDS: LevoFLOXacin IV 500 MG in APPROPRIATE DILUENT 1 EA IV SCH (11:12)
[2018-11-23 14:00] VITALS: BP 128/59
[2018-11-23] MEDS: ACETAMINOPHEN TAB 650MG DOSE (2X325MG) PO PRN (16:23)
[2018-11-23] MEDS: LATANOPROST 0.005% OPHTH SOLN 2.5 ML OU SCH (20:21)
[2018-11-23] MEDS: LIDOCAINE 5% (LIDODERM) PATCH TD SCH (20:21)
[2018-11-23] MEDS: TAMSULOSIN 0.4 MG CAP PO SCH (20:21)
[2018-11-23] MEDS: LEVEMIR (INSULIN DETEMIR) 1 UNITS/0.01ML SC SCH (20:25)
[2018-11-23] MEDS: traZODone 100 MG TAB PO PRN (20:28)
[2018-11-23 22:00] VITALS: BP 151/82
[2018-11-24] MEDS: IPRATROPIUM 0.5MG/ALBUTEROL 2.5MG INH SOL UD 3ML (DUONEB)(J7620) NEB PRN ×4 (00:03→17:26)
[2018-11-24] MEDS: ACETAMINOPHEN TAB 650MG DOSE (2X325MG) PO PRN ×2 (01:53→22:28)
[2018-11-24] MEDS: IPRATROPIUM 0.5MG/ALBUTEROL 2.5MG INH SOL UD 3ML (DUONEB)(J7620) NEB SCH ×4 (01:55→20:16)
[2018-11-24] MEDS: predniSONE 20 MG TAB PO SCH ×2 (05:40→18:02)
[2018-11-24] MEDS: ALPRAZolam 0.25 MG TAB PO PRN ×2 (05:41→23:09)
[2018-11-24 05:53] LABS: BASO % 0.1 % (0.0-1.0); HEMATOCRIT 33.4 % (42.0-52.0); HEMOGLOBIN 10.7 g/dl (13.5-17.5); LYMPH % 2.1 % (24.0-44.0); MEAN CORPUSCULAR HEMOGLOBIN 28.5 pg (27.0-33.0); MEAN CORPUSCULAR VOLUME 88.8 fl (80.0-96.0); MONO # 0.5 10^3/uL (0.0-0.8); MONO % 5.3 % (0.0-5.0); NEUTROPHILS # 8.9 10^3/uL (1.8-7.7); NEUTROPHILS % 91.6 % (36.0-66.0); PLATELET COUNT, AUTOMATED 233 10^3/uL (150-450); RED BLOOD COUNT 3.76 10^6/uL (4.30-6.10); WHITE BLOOD COUNT 9.7 10^3/uL (4.0-10.0)
[2018-11-24 06:00] VITALS: BP 149/65
[2018-11-24 06:09] LABS: CALCIUM LEVEL 8.6 MG/DL (8.8-10.2); CREATININE FOR GFR 1.88 MG/DL (0.70-1.30); GLOMERULAR FILTRATION RATE 37.4 (>42); POTASSIUM SERUM 5.5 MEQ/L (3.5-5.1)
[2018-11-24 06:45] LABS: LYMPH # 0.2 10^3/uL (1.5-4.5)
[2018-11-24] MEDS: APIXABAN 5 MG TAB (ELIQUIS) PO SCH ×2 (08:01→20:56)
[2018-11-24] MEDS: HumaLOG INSULIN (NovoLOG) PER UNIT SC SCH ×4 (08:01→20:58)
[2018-11-24] MEDS: FINASTERIDE 5 MG TAB PO SCH (08:01)
[2018-11-24] MEDS: SERTRALINE HCL 50 MG TAB PO SCH (08:01)
[2018-11-24] MEDS: OMEPRAZOLE 20 MG CAP PO SCH (08:01)
[2018-11-24] MEDS: DOCUSATE SODIUM 100 MG CAP PO SCH ×2 (08:01→20:42)
[2018-11-24] MEDS: **NOTE PATIENT COMMENT** MISC XX SCH (08:02)
[2018-11-24] MEDS: ASPIRIN 81 MG ENTERIC TAB PO SCH (08:02)
[2018-11-24] MEDS: FERROUS SULFATE 325MG TAB PO SCH (08:02)
[2018-11-24] MEDS: guaiFENesin ER 600 MG TAB PO SCH ×2 (08:02→20:57)
[2018-11-24] MEDS: LevoFLOXacin IV 500 MG in APPROPRIATE DILUENT 1 EA IV SCH (10:02)
[2018-11-24] MEDS: LISINOPRIL 10 MG TAB PO SCH ×2 (10:02→20:56)
[2018-11-24] MEDS: BISOPROLOL FUMARATE 5 MG TAB PO SCH (10:03)
--- NOTE | 2018-11-24 10:21 | IPNPDOC ---
Subjective Date Seen The patient was seen on 11/24/18. Subjective Chief Complaint/HPI Patient lying comfortably in bed as I entered the room. He states he was trying to take a nap reporting he did not sleep well last night. He reports to be feeling about the same, not any better from admission date Constitutional: Denies: Chills, Fever Pulmonary: Reports: Dyspnea, Cough; Denies: Pleuritic Chest Pain Cardiovascular: Denies: Chest Pain, Palpitations, Orthopnea, Edema Gastrointestinal: Denies: Nausea, Vomiting, Abdominal Pain, Diarrhea, Co nstipation Psych: Reports: Mood Normal Objective Physical Examination General Exam: Positive: Alert, No Acute Distress Neck Exam: Positive: Supple; Negative: JVD, thyromegaly Chest Exam: Positive: Rhonchi, Wheezing; Negative: Rales Heart Exam: Positive: Rate Normal, Regular Rhythm, Normal S1, Normal S2; Negative: Murmurs, Rubs Abdomen Exam: Positive: Normal bowel sounds, Soft; Negative: Tenderness, Hepatospenomegaly Skin Exam: Positive: Nl turgor and temperature; Negative: Rash, Breakdown Psych Exam: Positive: Mental status NL, Mood NL, Oriented x 3 Assessment /Plan Problems (1) Pneumonia involving right lung Status: Acute Problem Text: 11/24/18: Chest X-ray with Chronic interstitial fibrosis and right upper lobe infiltrate. Patient was started on Levaquin yesterday. He remains afebrile, WBC 9.7, down from 11.3. Remains on Prednisone and nebs (2) Hyponatremia Problem Text: 11/24/18: Hyponatremia persists, 129, BG 336. Corrected Na+ for glucose was 135. May be SIADH secondary to pulmonary process and/or SSRI. Serumen and urine osmol ordered. Lasix remains on hold. Patient with trace BLE edema, no pretibial edema. 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 Furosemide held. 11/22 131; 2 pseudo 2 hyperglycemia, loop diuretic (fur held)-tf baseline 138-140 (3) COPD with exacerbation Status: Acute Problem Text: 11/24/18: as stated under assessment #1 11/23 CXR today, solumedrol changed to Pred yest, monitor. 11/22 wean oxygen to keep sats between 88-92%. Repeat CXR today. Wean solumedrol to po Prednisone. Continue duonebs. (4) Pulmonary fibrosis Status: Chronic (5) Diastolic CHF, chronic Problem Text: 11/24/18: Lasix on hold d/t hyponatremia. Trace BLE edema. We will need to monitor EF 65% from echo 2013. Takes furosemide 40 mg po daily. on HOLD today due to hyponatremia JFW: edema 1+, I think he needs a bit of diuresis. Watch sodium closely (6) CAD (coronary artery disease) Status: Chronic Response to Treatment: Stable (7) HTN (hypertension) Status: Chronic Response to Treatment: Stable (8) CKD (chronic kidney disease), stage III Status: Chronic Response to Treatment: Stable (9) DM2 (diabetes mellitus, type 2) Status: Chronic Problem Text: 11/24/18: BGs remain above >300. Levemir was increased to 42 units q hs. HD glar 22 11/22 BG mid 300-mid 400s on det 32 (GC dose decreased) (10) Paroxysmal atrial fibrillation Status: Chronic Problem Text: rate controlled. on Apixaban 5 mg po bid (11) BPH loc w urin obs/LUTS Status: Chronic Plan/VTE VTE Prophylaxis Ordered?: Yes VS, I&O, 24H, Fishbone Vital Signs/I&O Vital Signs Date Time Temp Pulse Resp B/P (MAP) Pulse Ox O2 Delivery O2 Flow Rate FiO2 11/24/18 10:03 103 11/24/18 10:02 150/64 11/24/18 07:29 Nasal Cannula 2.0 11/24/18 06:00 97.0 20 92 I&O- Last 24 Hours up to 6 AM 11/24/18 06:00 Intake Total 1660 ml Output Total 3475 ml Balance -1815 ml Laboratory Data 24H LABS Laboratory Tests 2 11/23/18 11:47: Bedside Glucose (Misc Panel) 356H 11/23/18 17:20: Bedside Glucose (Misc Panel) 204H 11/23/18 20:19: Bedside Glucose (Misc Panel) 153H 11/23/18 20:45: Bedside Glucose (Misc Panel) 210H 11/24/18 05:33: Immature Granulocyte % (Auto) 0.9, White Blood Count 9.7, Red Blood Count 3.76L, Hemoglobin 10.7L, Hematocrit 33.4L, Mean Corpuscular Volume 88.8, Mean Corpuscular Hemoglobin 28.5, Mean Corpuscular Hemoglobin Concent 32.0, Red Cell Distribution Width 17.3H, Platelet Count 233, Neutrophils (%) (Auto) 91.6H, Lymphocytes (%) (Auto) 2.1L, Monocytes (%) (Auto) 5.3H, Eosinophils (%) (Auto) 0.0, Basophils (%) (Auto) 0.1, Neutrophils # (Auto) 8.9H, Lymphocytes # (Auto) 0.2L, Monocytes # (Auto) 0.5, Eosinophils # (Auto) 0.0, Basophils # (Auto) 0.0, Nucleated Red Blood Cells % (auto) 0.0, Anion Gap 7L, Glomerular Filtration Rate 37.4L, Blood Urea Nitrogen 74H, Creatinine 1.88H, Sodium Level 129L, Potassium Level 5.5H, Chloride Level 99, Carbon Dioxide Level 23, Calcium Level 8.6L CBC/BMP Laboratory Tests 11/24/18 05:33 Red Blood Count 3.76 L, Mean Corpuscular Volume 88.8, Mean Corpuscular Hemoglobin 28.5, Mean Corpuscular Hemoglobin Concent 32.0, Red Cell Distribution Width 17.3 H, Neutrophils (%) (Auto) 91.6 H, Lymphocytes (%) (Auto) 2.1 L, Monocytes (%) (Auto) 5.3 H, Eosinophils (%) (Auto) 0.0, Basophils (%) (Auto) 0.1, Neutrophils # (Auto) 8.9 H, Lymphocytes # (Auto) 0.2 L, Monocytes # (Auto) 0.5, Eosinophils # (Auto) 0.0, Basophils # (Auto) 0.0, Calcium Level 8.6 L Microbiology Microbiology 11/19/18 Blood Culture - Final, Complete NO GROWTH AFTER 5 DAYS 11/19/18 Blood Culture - Final, Complete NO GROWTH AFTER 5 DAYS CRISTIN DAWN Nov 24, 2018 10:21 Mian Almonte MD Nov 24, 2018 13:50
[2018-11-24] MEDS: FUROSEMIDE 20 MG TAB PO SCH (11:46)
[2018-11-24 14:00] VITALS: BP 123/63
[2018-11-24] MEDS ORDERED: FUROSEMIDE 40 MG/4 ML VIAL (J1940) IV ONE (14:00)
[2018-11-24] MEDS: TAMSULOSIN 0.4 MG CAP PO SCH (20:57)
[2018-11-24] MEDS: traZODone 100 MG TAB PO PRN (20:57)
[2018-11-24] MEDS: LATANOPROST 0.005% OPHTH SOLN 2.5 ML OU SCH (20:58)
[2018-11-24] MEDS: LEVEMIR (INSULIN DETEMIR) 1 UNITS/0.01ML SC SCH (20:58)
[2018-11-24] MEDS: LIDOCAINE 5% (LIDODERM) PATCH TD SCH (20:59)
[2018-11-24 22:00] VITALS: BP 148/61
[2018-11-25] MEDS: IPRATROPIUM 0.5MG/ALBUTEROL 2.5MG INH SOL UD 3ML (DUONEB)(J7620) NEB SCH ×4 (01:48→21:38)
[2018-11-25] MEDS: predniSONE 20 MG TAB PO SCH ×2 (05:32→18:24)
[2018-11-25 06:00] VITALS: BP 116/55
[2018-11-25 06:19] LABS: HEMATOCRIT 32.2 % (42.0-52.0); HEMOGLOBIN 10.2 g/dl (13.5-17.5); MEAN CORPUSCULAR HEMOGLOBIN 28.1 pg (27.0-33.0); MEAN CORPUSCULAR HGB CONC 31.7 g/dl (32.0-36.5); MEAN CORPUSCULAR VOLUME 88.7 fl (80.0-96.0); PLATELET COUNT, AUTOMATED 252 10^3/uL (150-450); RED BLOOD COUNT 3.63 10^6/uL (4.30-6.10); WHITE BLOOD COUNT 9.1 10^3/uL (4.0-10.0)
[2018-11-25 06:24] LABS: CALCIUM LEVEL 8.6 MG/DL (8.8-10.2); CREATININE FOR GFR 1.79 MG/DL (0.70-1.30); GLOMERULAR FILTRATION RATE 39.6 (>42); POTASSIUM SERUM 4.8 MEQ/L (3.5-5.1)
[2018-11-25] MEDS: OMEPRAZOLE 20 MG CAP PO SCH (08:44)
[2018-11-25] MEDS: LISINOPRIL 10 MG TAB PO SCH ×2 (08:45→21:09)
[2018-11-25] MEDS: HumaLOG INSULIN (NovoLOG) PER UNIT SC SCH ×4 (08:45→21:35)
[2018-11-25] MEDS: DOCUSATE SODIUM 100 MG CAP PO SCH ×2 (08:45→21:09)
[2018-11-25] MEDS: APIXABAN 5 MG TAB (ELIQUIS) PO SCH ×2 (08:45→21:09)
[2018-11-25] MEDS: FINASTERIDE 5 MG TAB PO SCH (08:46)
[2018-11-25] MEDS: FERROUS SULFATE 325MG TAB PO SCH (08:46)
[2018-11-25] MEDS: FUROSEMIDE 40 MG TAB PO SCH (08:46)
[2018-11-25] MEDS: BISOPROLOL FUMARATE 5 MG TAB PO SCH (08:46)
[2018-11-25] MEDS: ASPIRIN 81 MG ENTERIC TAB PO SCH (08:46)
[2018-11-25] MEDS: **NOTE PATIENT COMMENT** MISC XX SCH (08:47)
[2018-11-25] MEDS: guaiFENesin ER 600 MG TAB PO SCH ×2 (08:47→21:09)
[2018-11-25] MEDS: SERTRALINE HCL 50 MG TAB PO SCH (08:47)
--- NOTE | 2018-11-25 10:39 | IPNPDOC ---
Subjective Date Seen The patient was seen on 11/25/18. Subjective Chief Complaint/HPI Patient lying comfortably in bed as I entered the room. Patient reports to be feeling the same as yesterday. States he doesn't feel much better from a respiratory stand point Constitutional: Denies: Chills, Fever Pulmonary: Reports: Dyspnea, Cough; Denies: Pleuritic Chest Pain Cardiovascular: Reports: Edema (BLE/ankles ); Denies: Chest Pain, Palpitations, Orthopnea Genitourinary: Denies: Dysuria Psych: Reports: Mood Normal Objective Physical Examination General Exam: Positive: Alert, No Acute Distress Neck Exam: Positive: Supple; Negative: JVD, thyromegaly Chest Exam: Positive: Rhonchi, Wheezing; Negative: Rales Heart Exam: Positive: Rate Normal, Regular Rhythm, Normal S1, Normal S2; Negative: Murmurs, Rubs Abdomen Exam: Positive: Normal bowel sounds, Soft; Negative: Tenderness, Hepatospenomegaly Skin Exam: Positive: Nl turgor and temperature; Negative: Rash, Breakdown Psych Exam: Positive: Mental status NL, Mood NL, Oriented x 3 Assessment /Plan Problems (1) Pneumonia involving right lung Status: Acute Problem Text: 11/25/18: D#3 of Levaquin. WBC 9.1, patient is afebrile. Patient remains on nebs, prednisone and O2 11/24/18: Chest X-ray with Chronic interstitial fibrosis and right upper lobe infiltrate. Patient was started on Levaquin yesterday. He remains afebrile, WBC 9.7, down from 11.3. Remains on Prednisone and nebs (2) Hyponatremia Problem Text: 11/25/18: SIADH confirmed. Fluid restriction of 1000 ml day ordered. We will resume his Lasix today 11/24/18: Hyponatremia persists, 129, BG 336. Corrected Na+ for glucose was 135. May be SIADH secondary to pulmonary process and/or SSRI. Serumen and urine osmol ordered. Lasix remains on hold. Patient with trace BLE edema, no pretibial edema. 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 Furosemide held. 11/22 131; 2 pseudo 2 hyperglycemia, loop diuretic (fur held)-tf baseline 138-140 (3) CKD (chronic kidney disease), stage III Status: Chronic Response to Treatment: Stable Problem Text: 11/25/18: Baseline Cre ~1.7. Renal function appears stable, Cre 1.79, GFR 39.6. Lasix being resumed today. We will continue to monitor renal function (4) Diastolic CHF, chronic Status: Chronic Problem Text: 11/25/18: Patient with mild BLE. No JVD. We will resume Lasix today. Patient placed on fluid restriction as stated above 11/24/18: Lasix on hold d/t hyponatremia. Trace BLE edema. We will need to monitor EF 65% from echo 2012. Takes furosemide 40 mg po daily. on HOLD today due to hyponatremia JFW: edema 1+, I think he needs a bit of diuresis. Watch sodium closely (5) DM2 (diabetes mellitus, type 2) Status: Chronic Problem Text: 08/25/19: BG much improved this morning, 180. Continue with current regimen 11/24/18: BGs remain above >300. Levemir was increased to 42 units q hs. HD glar 22 11/22 BG mid 300-mid 400s on det 32 (GC dose decreased) (6) COPD with exacerbation Status: Acute Problem Text: 11/25/18: as above 11/24/18: as stated under assessment #1 11/23 CXR today, solumedrol changed to Pred yest, monitor. 11/22 wean oxygen to keep sats between 88-92%. Repeat CXR today. Wean solumedrol to po Prednisone. Continue duonebs. (7) Pulmonary fibrosis Status: Chronic (8) CAD (coronary artery disease) Status: Chronic Response to Treatment: Stable (9) HTN (hypertension) Status: Chronic Response to Treatment: Stable (10) Paroxysmal atrial fibrillation Status: Chronic Problem Text: rate controlled. on Apixaban 5 mg po bid (11) BPH loc w urin obs/LUTS Status: Chronic Plan/VTE VTE Prophylaxis Ordered?: Yes VS, I&O, 24H, Fishbone Vital Signs/I&O Vital Signs Date Time Temp Pulse Resp B/P (MAP) Pulse Ox O2 Delivery O2 Flow Rate FiO2 11/25/18 08:46 79 11/25/18 08:45 141/65 11/25/18 06:00 97.6 18 97 Nasal Cannula 2.0 I&O- Last 24 Hours up to 6 AM 11/25/18 05:59 Intake Total 2290 ml Output Total 4535 ml Balance -2245 ml Laboratory Data 24H LABS Laboratory Tests 2 11/24/18 11:31: Bedside Glucose (Misc Panel) 362H 11/24/18 11:50: Osmolality 309H 11/24/18 12:00: Urine Random Osmolality 370L 11/24/18 17:09: Bedside Glucose (Misc Panel) 401H 11/24/18 20:29: Bedside Glucose (Misc Panel) 381H 11/25/18 05:37: Nucleated Red Blood Cells % (auto) 0.0, Anion Gap 7L, Glomerular Filtration Rate 39.6L, Blood Urea Nitrogen 69H, Creatinine 1.79H, Sodium Level 134L, Potassium Level 4.8, Chloride Level 101, Carbon Dioxide Level 26, Calcium Level 8.6L CBC/BMP Laboratory Tests 11/25/18 05:37 Red Blood Count 3.63 L, Mean Corpuscular Volume 88.7, Mean Corpuscular Hemoglobin 28.1, Mean Corpuscular Hemoglobin Concent 31.7 L, Red Cell Distribution Width 17.2 H, Calcium Level 8.6 L Microbiology Microbiology 11/19/18 Blood Culture - Final, Complete NO GROWTH AFTER 5 DAYS 11/19/18 Blood Culture - Final, Complete NO GROWTH AFTER 5 DAYS CRISTIN DAWNP Nov 25, 2018 10:39
[2018-11-25] MEDS: LevoFLOXacin IV 500 MG in APPROPRIATE DILUENT 1 EA IV SCH (11:57)
[2018-11-25 14:00] VITALS: BP 120/67
[2018-11-25] MEDS: ACETAMINOPHEN TAB 650MG DOSE (2X325MG) PO PRN ×2 (14:47→21:10)
[2018-11-25] MEDS: LATANOPROST 0.005% OPHTH SOLN 2.5 ML OU SCH (21:10)
[2018-11-25] MEDS: LIDOCAINE 5% (LIDODERM) PATCH TD SCH (21:10)
[2018-11-25] MEDS: traZODone 100 MG TAB PO PRN (21:10)
[2018-11-25] MEDS: TAMSULOSIN 0.4 MG CAP PO SCH (21:10)
[2018-11-25] MEDS: LEVEMIR (INSULIN DETEMIR) 1 UNITS/0.01ML SC SCH (21:36)
[2018-11-25 22:00] VITALS: BP 146/62
[2018-11-26] MEDS: IPRATROPIUM 0.5MG/ALBUTEROL 2.5MG INH SOL UD 3ML (DUONEB)(J7620) NEB SCH ×4 (02:16→19:20)
[2018-11-26] MEDS: ACETAMINOPHEN TAB 650MG DOSE (2X325MG) PO PRN ×2 (02:30→20:44)
[2018-11-26] MEDS: predniSONE 20 MG TAB PO SCH ×2 (05:12→17:21)
[2018-11-26] MEDS: LevoFLOXacin 250 MG TABLET PO SCH (05:13)
[2018-11-26 06:00] VITALS: BP 137/61
[2018-11-26 06:10] LABS: HEMATOCRIT 34.1 % (42.0-52.0); HEMOGLOBIN 10.7 g/dl (13.5-17.5); MEAN CORPUSCULAR HEMOGLOBIN 28.8 pg (27.0-33.0); MEAN CORPUSCULAR HGB CONC 31.4 g/dl (32.0-36.5); MEAN CORPUSCULAR VOLUME 91.7 fl (80.0-96.0); PLATELET COUNT, AUTOMATED 250 10^3/uL (150-450); RED BLOOD COUNT 3.72 10^6/uL (4.30-6.10); WHITE BLOOD COUNT 8.5 10^3/uL (4.0-10.0)
[2018-11-26 06:35] LABS: CALCIUM LEVEL 8.5 MG/DL (8.8-10.2); CREATININE FOR GFR 1.76 MG/DL (0.70-1.30); GLOMERULAR FILTRATION RATE 40.4 (>42); POTASSIUM SERUM 4.8 MEQ/L (3.5-5.1)
[2018-11-26] MEDS: ASPIRIN 81 MG ENTERIC TAB PO SCH (08:59)
[2018-11-26] MEDS: SERTRALINE HCL 50 MG TAB PO SCH (08:59)
[2018-11-26] MEDS: DOCUSATE SODIUM 100 MG CAP PO SCH ×2 (09:00→20:44)
[2018-11-26] MEDS: FERROUS SULFATE 325MG TAB PO SCH (09:00)
[2018-11-26] MEDS: OMEPRAZOLE 20 MG CAP PO SCH (09:00)
[2018-11-26] MEDS: guaiFENesin ER 600 MG TAB PO SCH ×2 (09:00→20:44)
[2018-11-26] MEDS: APIXABAN 5 MG TAB (ELIQUIS) PO SCH ×2 (09:00→20:44)
[2018-11-26] MEDS: LISINOPRIL 10 MG TAB PO SCH ×2 (09:00→20:45)
[2018-11-26] MEDS: FUROSEMIDE 40 MG TAB PO SCH (09:00)
[2018-11-26] MEDS: BISOPROLOL FUMARATE 5 MG TAB PO SCH (09:01)
[2018-11-26] MEDS: HumaLOG INSULIN (NovoLOG) PER UNIT SC SCH ×4 (09:01→20:46)
[2018-11-26] MEDS: FINASTERIDE 5 MG TAB PO SCH (09:01)
[2018-11-26] MEDS: **NOTE PATIENT COMMENT** MISC XX SCH (09:12)
--- NOTE | 2018-11-26 09:17 | IPNPDOC ---
Subjective Date Seen The patient was seen on 11/26/18. Subjective Chief Complaint/HPI Patient lying comfortably in bed when I entered the room. He reports to be feeling a little better today. He states he is not back to his baseline. Constitutional: Denies: Chills, Fever Pulmonary: Reports: Dyspnea, Cough; Denies: Pleuritic Chest Pain Cardiovascular: Reports: Edema (Reports swelling around ankles); Denies: Chest Pain, Palpitations, Orthopnea Gastrointestinal: Denies: Nausea, Abdominal Pain, Constipation Psych: Reports: Mood Normal Objective Physical Examination General Exam: Positive: Alert, No Acute Distress Neck Exam: Positive: Supple; Negative: JVD, thyromegaly Chest Exam: Positive: Rhonchi, Wheezing; Negative: Rales Heart Exam: Positive: Rate Normal, Regular Rhythm, Normal S1, Normal S2; Negative: Murmurs, Rubs Abdomen Exam: Positive: Normal bowel sounds, Soft; Negative: Tenderness, Hepatospenomegaly Extremity Exam: Positive: Edema (trace edema noted right ankle, 1+ left ankle ) Skin Exam: Positive: Nl turgor and temperature; Negative: Rash, Breakdown Psych Exam: Positive: Mental status NL, Mood NL, Oriented x 3 Assessment /Plan Problems (1) Pneumonia involving right lung Status: Acute Response to Treatment: Stable Problem Text: 11/26/18: D#4 of Levaquin (now PO). Patient remains afebrile, WBC 8.5. Continue nebs, prednisone and O2 11/25/18: D#3 of Levaquin. WBC 9.1, patient is afebrile. Patient remains on nebs, prednisone and O2 11/24/18: Chest X-ray with Chronic interstitial fibrosis and right upper lobe infiltrate. Patient was started on Levaquin yesterday. He remains afebrile, WBC 9.7, down from 11.3. Remains on Prednisone and nebs (2) Hyponatremia Status: Acute Response to Treatment: Stable, Improving Problem Text: 11/26/18: Na+ 135, remains on fluid restriction 11/25/18: SIADH confirmed. Fluid restriction of 1000 ml day ordered. We will resume his Lasix today 11/24/18: Hyponatremia persists, 129, BG 336. Corrected Na+ for glucose was 135. May be SIADH secondary to pulmonary process and/or SSRI. Serumen and urine osmol ordered. Lasix remains on hold. Patient with trace BLE edema, no pretibial edema. 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 Furosemide held. 11/22 131; 2 pseudo 2 hyperglycemia, loop diuretic (fur held)-tf baseline 138-140 (3) CKD (chronic kidney disease), stage III Status: Chronic Response to Treatment: Stable Problem Text: 11/26/18: Remains stable, Cre 1.76, GFR 40 11/25/18: Baseline Cre ~1.7. Renal function appears stable, Cre 1.79, GFR 39.6. Lasix being resumed today. We will continue to monitor renal function (4) Diastolic CHF, chronic Status: Chronic Problem Text: 11/26/18: Patient appears well compensated on exam today 11/25/18: Patient with mild BLE. No JVD. We will resume Lasix today. Patient placed on fluid restriction as stated above 11/24/18: Lasix on hold d/t hyponatremia. Trace BLE edema. We will need to monitor EF 65% from echo 2012. Takes furosemide 40 mg po daily. on HOLD today due to hyponatremia JFW: edema 1+, I think he needs a bit of diuresis. Watch sodium closely (5) DM2 (diabetes mellitus, type 2) Status: Chronic Problem Text: 08/25/19: BG much improved this morning, 180. Continue with current regimen 11/24/18: BGs remain above >300. Levemir was increased to 42 units q hs. HD glar 22 11/22 BG mid 300-mid 400s on det 32 (GC dose decreased) (6) COPD with exacerbation Status: Acute Problem Text: 11/25/18: as above 11/24/18: as stated under assessment #1 11/23 CXR today, solumedrol changed to Pred yest, monitor. 11/22 wean oxygen to keep sats between 88-92%. Repeat CXR today. Wean solumedrol to po Prednisone. Continue duonebs. (7) Pulmonary fibrosis Status: Chronic (8) CAD (coronary artery disease) Status: Chronic Response to Treatment: Stable (9) HTN (hypertension) Status: Chronic Response to Treatment: Stable (10) Paroxysmal atrial fibrillation Status: Chronic Problem Text: rate controlled. on Apixaban 5 mg po bid (11) BPH loc w urin obs/LUTS Status: Chronic Plan/VTE VTE Prophylaxis Ordered?: Yes VS, I&O, 24H, Fishbone Vital Signs/I&O Vital Signs Date Time Temp Pulse Resp B/P (MAP) Pulse Ox O2 Delivery O2 Flow Rate FiO2 11/26/18 09:01 71 137/61 11/26/18 06:00 97.4 17 95 Nasal Cannula 2.0 I&O- Last 24 Hours up to 6 AM 11/26/18 06:00 Intake Total 1110 ml Output Total 3100 ml Balance -1990 ml Laboratory Data 24H LABS Laboratory Tests 2 11/25/18 11:40: Bedside Glucose (Misc Panel) 268H 11/26/18 05:35: Nucleated Red Blood Cells % (auto) 0.0, Anion Gap 8, Glomerular Filtration Rate 40.4L, Blood Urea Nitrogen 74H, Creatinine 1.76H, Sodium Level 135L, Potassium Level 4.8, Chloride Level 103, Carbon Dioxide Level 24, Calcium Level 8.5L CBC/BMP Laboratory Tests 11/26/18 05:35 Red Blood Count 3.72 L, Mean Corpuscular Volume 91.7, Mean Corpuscular Hemoglobin 28.8, Mean Corpuscular Hemoglobin Concent 31.4 L, Red Cell Distribution Width 17.3 H, Calcium Level 8.5 L Microbiology Microbiology 11/19/18 Blood Culture - Final, Complete NO GROWTH AFTER 5 DAYS 11/19/18 Blood Culture - Final, Complete NO GROWTH AFTER 5 DAYS CRISTIN DAWN Nov 26, 2018 09:17
[2018-11-26] MEDS: IPRATROPIUM 0.5MG/ALBUTEROL 2.5MG INH SOL UD 3ML (DUONEB)(J7620) NEB PRN ×2 (11:28→17:26)
[2018-11-26 14:00] VITALS: BP 137/67
[2018-11-26] MEDS: LATANOPROST 0.005% OPHTH SOLN 2.5 ML OU SCH (20:43)
[2018-11-26] MEDS: TAMSULOSIN 0.4 MG CAP PO SCH (20:44)
[2018-11-26] MEDS: LIDOCAINE 5% (LIDODERM) PATCH TD SCH (20:46)
[2018-11-26] MEDS: LEVEMIR (INSULIN DETEMIR) 1 UNITS/0.01ML SC SCH (20:46)
[2018-11-26] MEDS: traZODone 100 MG TAB PO PRN (20:57)
[2018-11-26 22:00] VITALS: BP 131/71
[2018-11-27] MEDS: IPRATROPIUM 0.5MG/ALBUTEROL 2.5MG INH SOL UD 3ML (DUONEB)(J7620) NEB SCH ×4 (02:35→19:12)
[2018-11-27] MEDS: ACETAMINOPHEN TAB 650MG DOSE (2X325MG) PO PRN ×2 (02:58→16:18)
[2018-11-27] MEDS: predniSONE 20 MG TAB PO SCH ×2 (05:26→18:27)
[2018-11-27] MEDS: LevoFLOXacin 250 MG TABLET PO SCH (05:26)
[2018-11-27 06:00] VITALS: BP 146/64
[2018-11-27 06:05] LABS: HEMATOCRIT 36.5 % (42.0-52.0); MEAN CORPUSCULAR HEMOGLOBIN 27.8 pg (27.0-33.0); MEAN CORPUSCULAR HGB CONC 30.1 g/dl (32.0-36.5); MEAN CORPUSCULAR VOLUME 92.4 fl (80.0-96.0); PLATELET COUNT, AUTOMATED 307 10^3/uL (150-450); RED BLOOD COUNT 3.95 10^6/uL (4.30-6.10); WHITE BLOOD COUNT 11.2 10^3/uL (4.0-10.0)
[2018-11-27 06:29] LABS: CALCIUM LEVEL 8.6 MG/DL (8.8-10.2); CREATININE FOR GFR 1.56 MG/DL (0.70-1.30); GLOMERULAR FILTRATION RATE 46.4 (>42); POTASSIUM SERUM 4.7 MEQ/L (3.5-5.1)
[2018-11-27] MEDS: OMEPRAZOLE 20 MG CAP PO SCH (08:37)
[2018-11-27] MEDS: APIXABAN 5 MG TAB (ELIQUIS) PO SCH ×2 (08:37→20:57)
[2018-11-27] MEDS: ASPIRIN 81 MG ENTERIC TAB PO SCH (08:37)
[2018-11-27] MEDS: DOCUSATE SODIUM 100 MG CAP PO SCH ×2 (08:37→20:54)
[2018-11-27] MEDS: FINASTERIDE 5 MG TAB PO SCH (08:37)
[2018-11-27] MEDS: FERROUS SULFATE 325MG TAB PO SCH (08:37)
[2018-11-27] MEDS: LISINOPRIL 10 MG TAB PO SCH ×2 (08:38→20:55)
[2018-11-27] MEDS: SERTRALINE HCL 50 MG TAB PO SCH (08:38)
[2018-11-27] MEDS: BISOPROLOL FUMARATE 5 MG TAB PO SCH (08:38)
[2018-11-27] MEDS: guaiFENesin ER 600 MG TAB PO SCH ×2 (08:38→20:54)
[2018-11-27] MEDS: HumaLOG INSULIN (NovoLOG) PER UNIT SC SCH ×4 (08:39→20:55)
[2018-11-27] MEDS: **NOTE PATIENT COMMENT** MISC XX SCH (08:39)
[2018-11-27] MEDS: FUROSEMIDE 40 MG TAB PO SCH (09:00)
[2018-11-27] MEDS: FUROSEMIDE 100 MG/10 ML VIAL (J1940) IV SCH ×3 (13:00→23:52)
[2018-11-27 14:00] VITALS: BP 115/60
[2018-11-27] MEDS: traZODone 100 MG TAB PO PRN (20:54)
[2018-11-27] MEDS: TAMSULOSIN 0.4 MG CAP PO SCH (20:54)
[2018-11-27] MEDS: LEVEMIR (INSULIN DETEMIR) 1 UNITS/0.01ML SC SCH (20:56)
[2018-11-27] MEDS: LIDOCAINE 5% (LIDODERM) PATCH TD SCH (20:56)
[2018-11-27] MEDS: LATANOPROST 0.005% OPHTH SOLN 2.5 ML OU SCH (20:56)
[2018-11-27 22:00] VITALS: BP 139/61
[2018-11-27] MEDS: ALPRAZolam 0.25 MG TAB PO PRN (22:16)
[2018-11-27] MEDS: IPRATROPIUM 0.5MG/ALBUTEROL 2.5MG INH SOL UD 3ML (DUONEB)(J7620) NEB PRN (23:48)
[2018-11-28] MEDS: IPRATROPIUM 0.5MG/ALBUTEROL 2.5MG INH SOL UD 3ML (DUONEB)(J7620) NEB SCH ×4 (04:17→20:13)
[2018-11-28 06:00] VITALS: BP 144/75
[2018-11-28 06:01] LABS: HEMATOCRIT 36.9 % (42.0-52.0); HEMOGLOBIN 11.7 g/dl (13.5-17.5); MEAN CORPUSCULAR HEMOGLOBIN 28.2 pg (27.0-33.0); MEAN CORPUSCULAR HGB CONC 31.7 g/dl (32.0-36.5); MEAN CORPUSCULAR VOLUME 88.9 fl (80.0-96.0); PLATELET COUNT, AUTOMATED 301 10^3/uL (150-450); RED BLOOD COUNT 4.15 10^6/uL (4.30-6.10)
[2018-11-28 06:20] LABS: CALCIUM LEVEL 8.8 MG/DL (8.8-10.2); CREATININE FOR GFR 1.67 MG/DL (0.70-1.30); GLOMERULAR FILTRATION RATE 42.9 (>42); POTASSIUM SERUM 4.7 MEQ/L (3.5-5.1)
[2018-11-28] MEDS: predniSONE 20 MG TAB PO SCH ×2 (06:31→17:51)
[2018-11-28] MEDS: FUROSEMIDE 100 MG/10 ML VIAL (J1940) IV SCH ×4 (06:31→23:58)
[2018-11-28] MEDS: LevoFLOXacin 250 MG TABLET PO SCH (06:31)
[2018-11-28] MEDS: guaiFENesin ER 600 MG TAB PO SCH ×2 (08:41→21:03)
[2018-11-28] MEDS: BISOPROLOL FUMARATE 5 MG TAB PO SCH (08:41)
[2018-11-28] MEDS: SERTRALINE HCL 50 MG TAB PO SCH (08:41)
[2018-11-28] MEDS: ASPIRIN 81 MG ENTERIC TAB PO SCH (08:41)
[2018-11-28] MEDS: FERROUS SULFATE 325MG TAB PO SCH (08:41)
[2018-11-28] MEDS: APIXABAN 5 MG TAB (ELIQUIS) PO SCH ×2 (08:42→21:03)
[2018-11-28] MEDS: OMEPRAZOLE 20 MG CAP PO SCH (08:42)
[2018-11-28] MEDS: LISINOPRIL 10 MG TAB PO SCH ×2 (08:42→21:04)
[2018-11-28] MEDS: FINASTERIDE 5 MG TAB PO SCH (08:42)
[2018-11-28] MEDS: DOCUSATE SODIUM 100 MG CAP PO SCH ×2 (08:42→21:03)
[2018-11-28] MEDS: HumaLOG INSULIN (NovoLOG) PER UNIT SC SCH ×4 (08:43→21:03)
[2018-11-28] MEDS: **NOTE PATIENT COMMENT** MISC XX SCH (08:43)
[2018-11-28] MEDS: IPRATROPIUM 0.5MG/ALBUTEROL 2.5MG INH SOL UD 3ML (DUONEB)(J7620) NEB PRN ×2 (11:09→18:05)
[2018-11-28 14:00] VITALS: BP 135/63
[2018-11-28 18:40] VITALS: BP 170/93
[2018-11-28 18:53] VITALS: BP 143/64
[2018-11-28] MEDS: ALPRAZolam 0.25 MG TAB PO PRN (19:35)
[2018-11-28] MEDS: traZODone 100 MG TAB PO PRN (21:03)
[2018-11-28] MEDS: LEVEMIR (INSULIN DETEMIR) 1 UNITS/0.01ML SC SCH (21:03)
[2018-11-28] MEDS: TAMSULOSIN 0.4 MG CAP PO SCH (21:03)
[2018-11-28] MEDS: LIDOCAINE 5% (LIDODERM) PATCH TD SCH (21:04)
[2018-11-28] MEDS: LATANOPROST 0.005% OPHTH SOLN 2.5 ML OU SCH (21:04)
[2018-11-28 22:00] VITALS: BP 136/65
[2018-11-28 23:53] VITALS: BP 115/59
[2018-11-29] MEDS: IPRATROPIUM 0.5MG/ALBUTEROL 2.5MG INH SOL UD 3ML (DUONEB)(J7620) NEB SCH ×4 (04:52→20:18)
[2018-11-29 06:00] VITALS: BP 123/60
[2018-11-29] MEDS: LevoFLOXacin 250 MG TABLET PO SCH (06:06)
[2018-11-29] MEDS: predniSONE 20 MG TAB PO SCH ×2 (06:06→18:17)
[2018-11-29] MEDS: FUROSEMIDE 100 MG/10 ML VIAL (J1940) IV SCH ×4 (06:06→23:28)
[2018-11-29 06:21] LABS: HEMATOCRIT 35.1 % (42.0-52.0); HEMOGLOBIN 11.1 g/dl (13.5-17.5); MEAN CORPUSCULAR HGB CONC 31.6 g/dl (32.0-36.5); MEAN CORPUSCULAR VOLUME 88.4 fl (80.0-96.0); PLATELET COUNT, AUTOMATED 273 10^3/uL (150-450); RED BLOOD COUNT 3.97 10^6/uL (4.30-6.10); WHITE BLOOD COUNT 10.5 10^3/uL (4.0-10.0)
[2018-11-29 06:41] LABS: CALCIUM LEVEL 8.3 MG/DL (8.8-10.2); CREATININE FOR GFR 1.71 MG/DL (0.70-1.30); GLOMERULAR FILTRATION RATE 41.8 (>42); POTASSIUM SERUM 4.3 MEQ/L (3.5-5.1)
[2018-11-29] MEDS: HumaLOG INSULIN (NovoLOG) PER UNIT SC SCH ×4 (07:30→21:12)
[2018-11-29 09:00] VITALS: BP 128/68
[2018-11-29] MEDS: BISOPROLOL FUMARATE 5 MG TAB PO SCH (11:04)
[2018-11-29] MEDS: FINASTERIDE 5 MG TAB PO SCH (11:04)
[2018-11-29] MEDS: SERTRALINE HCL 50 MG TAB PO SCH (11:04)
[2018-11-29] MEDS: ASPIRIN 81 MG ENTERIC TAB PO SCH (11:04)
[2018-11-29] MEDS: APIXABAN 5 MG TAB (ELIQUIS) PO SCH ×2 (11:05→21:10)
[2018-11-29] MEDS: LISINOPRIL 10 MG TAB PO SCH ×2 (11:05→21:11)
[2018-11-29] MEDS: FERROUS SULFATE 325MG TAB PO SCH (11:05)
[2018-11-29] MEDS: **NOTE PATIENT COMMENT** MISC XX SCH (11:05)
[2018-11-29] MEDS: OMEPRAZOLE 20 MG CAP PO SCH (11:05)
[2018-11-29] MEDS: guaiFENesin ER 600 MG TAB PO SCH ×2 (11:05→21:11)
[2018-11-29] MEDS: DOCUSATE SODIUM 100 MG CAP PO SCH ×2 (11:06→21:11)
--- NOTE | 2018-11-29 11:13 | IPNPDOC ---
Subjective Date Seen The patient was seen on 11/29/18. Subjective Chief Complaint/HPI Pt this morning without new concerns. He reports that his feet/ankles are still very swollen, but better than yest. He is getting around pretty well. General: Denies: Fatigue Constitutional: Denies: Chills, Fever ENT: Denies: Head Aches Pulmonary: Denies: Dyspnea, Cough Gastrointestinal: Denies: Nausea, Vomiting, Diarrhea Neurological: Denies: Weakness Psych: Reports: Mood Normal Objective Physical Examination General Exam: Positive: Alert, No Acute Distress Neck Exam: Positive: Supple; Negative: JVD, thyromegaly Chest Exam: Positive: Rhonchi, Wheezing; Negative: Rales Heart Exam: Positive: Rate Normal, Regular Rhythm, Normal S1, Normal S2; Negative: Murmurs, Rubs Abdomen Exam: Positive: Normal bowel sounds, Soft; Negative: Tenderness, Hepatospenomegaly Extremity Exam: Positive: Edema (trace edema noted right ankle, 1+ left ankle ) Skin Exam: Positive: Nl turgor and temperature; Negative: Rash, Breakdown Psych Exam: Positive: Mental status NL, Mood NL, Oriented x 3 Assessment /Plan Problems (1) Pneumonia involving right lung Status: Acute Response to Treatment: Stable Problem Text: 09/29 D7 Levaquin, PO, Pt remains afebrile, resp status cont to improve. Cont with PO Pred, O2 - will likely be d/c with home O2. 11/26/18: D#4 of Levaquin (now PO). Patient remains afebrile, WBC 8.5. Continue nebs, prednisone and O2 11/25/18: D#3 of Levaquin. WBC 9.1, patient is afebrile. Patient remains on nebs, prednisone and O2 11/24/18: Chest X-ray with Chronic interstitial fibrosis and right upper lobe infiltrate. Patient was started on Levaquin yesterday. He remains afebrile, WBC 9.7, down from 11.3. Remains on Prednisone and nebs (2) Hyponatremia Status: Resolved Response to Treatment: Stable, Improving Problem Text: 11/26/18: Na+ 135, remains on fluid restriction 11/25/18: SIADH confirmed. Fluid restriction of 1000 ml day ordered. We will resume his Lasix today 11/24/18: Hyponatremia persists, 129, BG 336. Corrected Na+ for glucose was 135. May be SIADH secondary to pulmonary process and/or SSRI. Serumen and urine osmol ordered. Lasix remains on hold. Patient with trace BLE edema, no pretibial edema. 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 Furosemide held. 11/22 131; 2 pseudo 2 hyperglycemia, loop diuretic (fur held)-tf baseline 138-140 (3) CKD (chronic kidney disease), stage III Status: Chronic Response to Treatment: Stable Problem Text: 11/26/18: Remains stable, Cre 1.76, GFR 40 11/25/18: Baseline Cre ~1.7. Renal function appears stable, Cre 1.79, GFR 39.6. Lasix being resumed today. We will continue to monitor renal function (4) Diastolic CHF, chronic Status: Chronic Response to Treatment: Improving Problem Specific Plan: Monitor Clinically, Repeat Labs Problem Text: 11/29 BLE edema persistent, will cont with IV lasix 80 mg q6h for Net neg 1500 cc/24 h, 11/26/18: Patient appears well compensated on exam today 11/25/18: Patient with mild BLE. No JVD. We will resume Lasix today. Patient placed on fluid restriction as stated above 11/24/18: Lasix on hold d/t hyponatremia. Trace BLE edema. We will need to monitor EF 65% from echo 2012. Takes furosemide 40 mg po daily. on HOLD today due to hyponatremia JFW: edema 1+, I think he needs a bit of diuresis. Watch sodium closely (5) DM2 (diabetes mellitus, type 2) Status: Chronic Problem Text: 11/29 FSBS remain elevated, cont with SSI. 11/25/18: BG much improved this morning, 180. Continue with current regimen 11/24/18: BGs remain above >300. Levemir was increased to 42 units q hs. HD glar 22 11/22 BG mid 300-mid 400s on det 32 (GC dose decreased) (6) COPD with exacerbation Status: Acute Problem Text: 11/25/18: as above 11/24/18: as stated under assessment #1 11/23 CXR today, solumedrol changed to Pred yest, monitor. 11/22 wean oxygen to keep sats between 88-92%. Repeat CXR today. Wean solumedrol to po Prednisone. Continue duonebs. (7) Pulmonary fibrosis Status: Chronic (8) CAD (coronary artery disease) Status: Chronic Response to Treatment: Stable (9) HTN (hypertension) Status: Chronic Response to Treatment: Stable (10) Paroxysmal atrial fibrillation Status: Chronic Problem Text: rate controlled. on Apixaban 5 mg po bid (11) BPH loc w urin obs/LUTS Status: Chronic Plan/VTE VTE Prophylaxis Ordered?: Yes Plan Family Medicine Attending Note: I saw and examined Mr. Cruz, discussed with TIFFANIE Cartwright. Agree with her note as documented. She, seems to be doing relatively well today. He did walk in the hallways nursing and required 2 L of oxygen to keep him over 88% (low while walking was 86% on room air). He will have a Noc Ox tonight to see whether he needs continuous oxygen at nighttime as well. Anticipate discharge tomorrow likely with continuous oxygen with portability. 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) VS, I&O, 24H, Fishbone Vital Signs/I&O Vital Signs Date Time Temp Pulse Resp B/P (MAP) Pulse Ox O2 Delivery O2 Flow Rate FiO2 11/29/18 09:00 97.9 78 18 128/68 (88) 94 Nasal Cannula 2.0 I&O- Last 24 Hours up to 6 AM 11/29/18 05:59 Intake Total 1730 ml Output Total 2460 ml Balance -730 ml Laboratory Data 24H LABS Laboratory Tests 2 11/29/18 05:18: Nucleated Red Blood Cells % (auto) 0.0, Anion Gap 10, Glomerular Filtration Rate 41.8L, Blood Urea Nitrogen 80H, Creatinine 1.71H, Sodium Level 138, Potassium Level 4.3, Chloride Level 100, Carbon Dioxide Level 28, Calcium Level 8.3L CBC/BMP Laboratory Tests 11/29/18 05:18 Red Blood Count 3.97 L, Mean Corpuscular Volume 88.4, Mean Corpuscular Hemoglobin 28.0, Mean Corpuscular Hemoglobin Concent 31.6 L, Red Cell Distr ibution Width 17.2 H, Calcium Level 8.3 L Microbiology Microbiology 11/19/18 Blood Culture - Final, Complete NO GROWTH AFTER 5 DAYS 11/19/18 Blood Culture - Final, Complete NO GROWTH AFTER 5 DAYS ZOEY GILBERT PA-C Nov 29, 2018 11:13 Mervin Hodge MD Nov 29, 2018 22:10
--- NOTE | 2018-11-29 11:32 | IPN ---
DATE: 11/27/2018 Lance is seen on [facility]. He feels better. He is having increasing lower extremity edema. I do not think we have gotten the amount of diuresis that we need accomplished yet. His hyponatremia has resolved with fluid restriction. His blood sugar still remains loosely controlled. Vital signs stable. Lungs have scattered rhonchi, wheezes, but better air movement than when I saw him last week. 1+ peripheral edema. Plan: Today will put him on intravenous (IV) furosemide aiming for a net diuresis of 1000 mL per day. Loosen his fluid restriction. He is requesting 1800 mL per day. Increase his basal insulin in the face of his high sliding scale requirement. He will be in the hospital until at least early next week.
[2018-11-29 14:00] VITALS: BP 124/68
[2018-11-29] MEDS: LIDOCAINE 5% (LIDODERM) PATCH TD SCH (21:10)
[2018-11-29] MEDS: ALPRAZolam 0.25 MG TAB PO PRN (21:10)
[2018-11-29] MEDS: LATANOPROST 0.005% OPHTH SOLN 2.5 ML OU SCH (21:12)
[2018-11-29] MEDS: LEVEMIR (INSULIN DETEMIR) 1 UNITS/0.01ML SC SCH (21:12)
[2018-11-29] MEDS: TAMSULOSIN 0.4 MG CAP PO SCH (21:13)
[2018-11-29 22:00] VITALS: BP 134/65
[2018-11-30] MEDS: IPRATROPIUM 0.5MG/ALBUTEROL 2.5MG INH SOL UD 3ML (DUONEB)(J7620) NEB SCH ×2 (02:51→08:05)
[2018-11-30] MEDS: predniSONE 20 MG TAB PO SCH (05:22)
[2018-11-30] MEDS: LevoFLOXacin 250 MG TABLET PO SCH (05:22)
[2018-11-30] MEDS: FUROSEMIDE 100 MG/10 ML VIAL (J1940) IV SCH (05:23)
[2018-11-30 06:00] VITALS: BP 99/52
[2018-11-30 06:02] LABS: HEMATOCRIT 35.4 % (42.0-52.0); HEMOGLOBIN 11.2 g/dl (13.5-17.5); MEAN CORPUSCULAR HEMOGLOBIN 28.3 pg (27.0-33.0); MEAN CORPUSCULAR HGB CONC 31.6 g/dl (32.0-36.5); MEAN CORPUSCULAR VOLUME 89.4 fl (80.0-96.0); PLATELET COUNT, AUTOMATED 270 10^3/uL (150-450); RED BLOOD COUNT 3.96 10^6/uL (4.30-6.10); WHITE BLOOD COUNT 11.8 10^3/uL (4.0-10.0)
[2018-11-30 06:27] LABS: CALCIUM LEVEL 8.3 MG/DL (8.8-10.2); CREATININE FOR GFR 1.56 MG/DL (0.70-1.30); GLOMERULAR FILTRATION RATE 46.4 (>42); POTASSIUM SERUM 4.1 MEQ/L (3.5-5.1)
[2018-11-30] MEDS: ALPRAZolam 0.25 MG TAB PO PRN (07:12)
[2018-11-30] MEDS: HumaLOG INSULIN (NovoLOG) PER UNIT SC SCH (07:30)
[2018-11-30] MEDS: **NOTE PATIENT COMMENT** MISC XX SCH (08:04)
[2018-11-30] MEDS ORDERED: LIDO5TD TD (09:06)
[2018-11-30] MEDS ORDERED: PRED10TA2 PO (09:06)
[2018-11-30] MEDS ORDERED: LEVA250T13 PO (09:06)
[2018-11-30 09:08] VITALS: BP 138/61
[2018-11-30] MEDS: FINASTERIDE 5 MG TAB PO SCH (09:08)
[2018-11-30] MEDS: BISOPROLOL FUMARATE 5 MG TAB PO SCH (09:08)
[2018-11-30] MEDS: guaiFENesin ER 600 MG TAB PO SCH (09:08)
[2018-11-30] MEDS: DOCUSATE SODIUM 100 MG CAP PO SCH (09:08)
[2018-11-30] MEDS: ASPIRIN 81 MG ENTERIC TAB PO SCH (09:08)
[2018-11-30] MEDS: APIXABAN 5 MG TAB (ELIQUIS) PO SCH (09:08)
[2018-11-30] MEDS: SERTRALINE HCL 50 MG TAB PO SCH (09:08)
[2018-11-30] MEDS: OMEPRAZOLE 20 MG CAP PO SCH (09:08)
[2018-11-30] MEDS: FERROUS SULFATE 325MG TAB PO SCH (09:08)
[2018-11-30] MEDS: LISINOPRIL 10 MG TAB PO SCH (09:09)
[2018-11-30] MEDS ORDERED: TRAZ-163 PO (09:14)
--- NOTE | 2018-11-30 10:14 | DSES ---
DATE OF ADMISSION: 11/21/2018 DATE OF DISCHARGE: 11/30/2018 PRIMARY CARE PROVIDER: Sharon Larson ATTENDING TODAY: Dr. Mervin Hodge HISTORY: This is a 73-year-old male patient who follows with Sharon Larson in the outpatient setting who presented to [facility] emergency room with a three day history of increased cough, shortness of breath and difficulty with sleep which suddenly worsened in the last three days. He denied any fevers or chills. Denied any increase in sputum production. He was admitted to the hospital for a chronic obstructive pulmonary disease (COPD) exacerbation and for further management. He was started on IV steroids. During his hospitalization, his respiratory status did decline. IV Levaquin was added to his regimen as well as a more advanced pulmonary toilet. He has had slow and steady improvement. He has also required diuresis with IV Lasix for acute on chronic diastolic congestive heart failure. His sodium level did drop. He was placed on a fluid restriction. Chest x-ray repeated with worsening respiratory status revealed a right lung pneumonia. With the addition of steroids, his finger stick blood sugars increased. His respiratory status at this point has improved. He has been seen by physical therapy who feel as though he is safe to return home. He did have an overnight pulse oximetry last night which will need followup in the outpatient setting. He will be discharged home on oxygen which is new at this point for the patient at 2 liters. He will need this at sleep and during the day. DISCHARGE DIAGNOSES: 1. Acute on chronic respiratory failure secondary to chronic obstructive pulmonary disease exacerbation. 2. Right lung pneumonia. 3. Hyponatremia. 4. Chronic kidney disease Stage 3. 5. Acute on chronic diastolic congestive heart failure. 6. Diabetes mellitus type 2. 7. Pulmonary fibrosis. 8. Coronary artery disease. 9. Hypertension. 10. Paroxysmal atrial fibrillation. 11. Benign prostatic hypertrophy. DISCHARGE MEDICATIONS: - prednisone 40 mg daily times three days, then 30 mg times three days, then 20 mg times three days, then 10 mg times three days - levofloxacin 250 mg daily times five additional days - lidocaine patches to bilateral shoulders - acetaminophen 650 mg every 4 hours as needed for pain and 1000 mg before bed - Combivent one puff four times daily - albuterol ipratropium nebulizers inhaled every 4 hours as needed for shortness of breath - Xanax 0.25 mg by mouth three times a day as needed for anxiety - Eliquis 5 mg by mouth twice a day - Artificial Tears four times daily as needed for dry eyes - aspirin 81 mg daily - bisoprolol 5 mg by mouth daily - docusate sodium 100 mg by mouth twice a day - fenofibrate 160 mg by mouth daily - ferrous sulfate 325 mg by mouth daily - Proscar 5 mg by mouth daily - fish oil 100 mg by mouth twice a day - furosemide 40 mg by mouth daily - Mucinex 600 mg every 12 hours as needed for congestion - Incruse 62.5 mcg inhaled daily - Lantus 22 units subcutaneous at bedtime - Humalog sliding scale before meals and at bedtime - Xalatan 0.005 one drop each eye before bed - lisinopril 10 mg by mouth twice a day - omeprazole 20 mg by mouth daily - Crestor 10 mg by mouth at bedtime - Advair 500/50 one puff twice a day - Sertraline 50 mg daily - tamsulosin 0.4 mg by mouth at bedtime - trazodone 100 mg by mouth at bedtime as needed for sleep DISCHARGE PLAN: To followup with me in one week. Activity should be as tolerated. He should wear 2 liters nasal cannula consistently. He will have a consistent carbohydrate no added salt diet. edited: 12/01/2018 0746 jonny MARRUFO
[2018-12-01] MEDS ORDERED: LIDO5TD TOP (14:17)
== END 2018-11-30 13:10 | disposition home or self-care (01) | DRG 190 ==
LOC: M ED 02:27 → M ED INP 11:04 → M MSPAV 13:37 → OBSVTOIN 11-21 13:32
PROVIDERS: ADMIT Family Medicine; ATTEND Family Medicine
DX: J44.1 Chronic obstructive pulmonary disease with (acute) exacerbation (principal); J18.9 Pneumonia, unspecified organism; I50.33 Acute on chronic diastolic (congestive) heart failure; E87.1 Hypo-osmolality and hyponatremia; I13.0 Hypertensive heart and chronic kidney disease with heart failure and stage 1 through stage 4 chronic kidney disease, or unspecified chronic kidney disease; N18.3 Chronic kidney disease, stage 3 (moderate); E11.40 Type 2 diabetes mellitus with diabetic neuropathy, unspecified; I25.10 Atherosclerotic heart disease of native coronary artery without angina pectoris; I48.0 Paroxysmal atrial fibrillation; N40.0 Benign prostatic hyperplasia without lower urinary tract symptoms; J84.10 Pulmonary fibrosis, unspecified; Z79.899 Other long term (current) drug therapy; Z87.891 Personal history of nicotine dependence; Z79.4 Long term (current) use of insulin; F32.9 Major depressive disorder, single episode, unspecified; G47.00 Insomnia, unspecified; I25.2 Old myocardial infarction; Z95.1 Presence of aortocoronary bypass graft; D50.9 Iron deficiency anemia, unspecified; E78.5 Hyperlipidemia, unspecified; D63.1 Anemia in chronic kidney disease; Z79.82 Long term (current) use of aspirin; Z79.01 Long term (current) use of anticoagulants; H40.9 Unspecified glaucoma

== ENCOUNTER 2018-12-01 12:02 | Inpatient (IN) | payer MEDICARE ==
[~2018-12-01] VITALS: Ht 167.6 cm; Wt 75.0 kg
[~2018-12-01 12:02] MED LIST changes: +ACET1TAB55 PO; +INCR1INH INH; +LIDO5TD TD; +MUCI600T31 PO; +OMEP20CA3 PO; +TRAZ-160 PO; +TRAZ-163 PO; +TYLE500T78 PO; +XALA0.007 OU
--- NOTE | 2018-12-01 12:45 | REP ---
Chest one-view HISTORY: Cough Comparison: 11/23/2018 A diffuse increase in interstitial markings is present in the lungs consistent with chronic interstitial fibrosis. Patchy is present in the right upper and lower lobes consistent with an infiltrate. The heart is normal in size. The pulmonary vasculature is normal in appearance. Impression: 1. chronic interstitial fibrosis. 2. Right upper and lower lobe infiltrates. Electronically Signed by Obi Blunt MD 12/01/2018 12:37 P
[2018-12-01 12:53] LABS: BASO % 0.3 % (0.0-1.0); HEMATOCRIT 37.4 % (42.0-52.0); HEMOGLOBIN 11.6 g/dl (13.5-17.5); LYMPH # 0.5 10^3/uL (1.5-4.5); LYMPH % 4.3 % (24.0-44.0); MEAN CORPUSCULAR HEMOGLOBIN 28.1 pg (27.0-33.0); MEAN CORPUSCULAR VOLUME 90.6 fl (80.0-96.0); MONO # 0.7 10^3/uL (0.0-0.8); NEUTROPHILS # 9.4 10^3/uL (1.8-7.7); NEUTROPHILS % 86.6 % (36.0-66.0); PLATELET COUNT, AUTOMATED 213 10^3/uL (150-450); RED BLOOD COUNT 4.13 10^6/uL (4.30-6.10); WHITE BLOOD COUNT 10.9 10^3/uL (4.0-10.0)
[2018-12-01 13:04] LABS: VENOUS BASE EXCESS 3.8 (-2.0-2.0); VENOUS HCO3 29.1 MEQ/L (23.0-27.0); VENOUS O2 SATURATION 96.1 % (60.0-80.0); VENOUS PARTIAL PRESSURE CO2 46.4 mmHg (38.0-50.0); VENOUS PARTIAL PRESSURE O2 85.9 mmHg (30.0-50.0); VENOUS PH 7.415 UNITS (7.330-7.430); VENOUS STANDARD HCO3 27.9 MEQ/L; VENOUS TOTAL CO2 30.5 MEQ/L (24.0-28.0)
[2018-12-01 13:05] LABS: INR 1.18; PROTHROMBIN TIME 15.2 SECONDS (12.1-14.4)
[2018-12-01 13:25] LABS: INFLUENZA B AMPLIFICATION NEGATIVE (NEGATIVE)
[2018-12-01] MEDS: IPRATROPIUM 0.5MG/ALBUTEROL 2.5MG INH SOL UD 3ML (DUONEB)(J7620) NEB PRN ×4 (13:28→18:08)
[2018-12-01] MEDS ORDERED: methylPREDNISolone INJ 125 MG/2 ML VIAL (J2930) IV ONE (13:30)
[2018-12-01] MEDS ORDERED: VANCOMYCIN HCL 1,000 MG, VIAL MATE ADAPTER 1 EACH in D5W 250 ML IV ONE (13:30)
[2018-12-01 13:31] LABS: ALBUMIN 2.5 GM/DL (3.2-5.2); BILIRUBIN,DIRECT 0.3 MG/DL (0.0-0.2); BILIRUBIN,TOTAL 0.7 MG/DL (0.2-1.0); CALCIUM LEVEL 8.6 MG/DL (8.8-10.2); CREATININE FOR GFR 1.5 MG/DL (0.70-1.30); GLOMERULAR FILTRATION RATE 48.6 (>42); MB/CK RELATIVE INDEX 3.91 (< OR =4); POTASSIUM SERUM 4.6 MEQ/L (3.5-5.1); THYROID STIMULATING HORMONE 0.18 uIU/ML (0.358-3.740); TOTAL PROTEIN 5.9 GM/DL (6.4-8.2); TROPONIN I 0.03 NG/ML (< 0.10)
[2018-12-01] MEDS ORDERED: PIPERACILLIN/TAZOBACTAM SOD 3.375 GM in D5W MINI-BAG PLUS 50 ML IV ONE (13:45)
[2018-12-01] MEDS ORDERED: LIDO5TD TOP (14:17)
[2018-12-01] MEDS ORDERED: guaiFENesin ER 600 MG TAB PO PRN (14:45)
[2018-12-01] MEDS ORDERED: POLYVINYL ALCOHOL OPHTH SOLN 15 ML(LIQUITEARS) OU PRN (14:45)
--- NOTE | 2018-12-01 15:26 | NUR ---
Pt w/ mild dysphagia. Recommend level 2 mechanically altered (NDD) solids and thin liquids. Dysphagia tx indicated for diet tolerance to prevent aspiration. Addendum: 12/01/18 at 1527 by LUPILLO [facility] SP Amended: Links added.
--- NOTE | 2018-12-01 15:54 | PHACANCOPD ---
PHARMACY VANCOMYCIN DOSING Pt Demographics Demographics Patient Age:73 , Weight:75.000 , Gender: male Adjusted Body Weight Date: 12/01/18, Adjusted Body Weight: [75] Kg Events Past 24 Hours Events Past 24 Hours: NO: Dialysis, Diuretic Therapy, Change in CrCl, Fever, Elevation in WBC, Pending Diagnostics, Pending Procedures, Other Vancomycin Vancomycin indication: HAP Vancomycin Target Ranges: 10-20 mcg/ml Vancomycin Load Y/N: Yes Load Dose Date Time Vancomycin Load Dose: 1.5G Date: 12/01/18 Time: 13 Vancomycin Dose Date: 12/01/18. Current Vancomycin Dose: [1G IV Q24H ] Intermittent Dosing?: No Labs Labs Item Value Date Time White Blood Count 10.9 10^3/uL H 12/01/18 1245 Creatinine 1.50 MG/DL H 12/01/18 1245 Micro Microbiology 12/01/18 Blood Culture, Received Pending 12/01/18 Blood Culture, Received Pending Creatinine Clearance Date:12/01/18. Creatinine Clearance: [~45ML/MIN]. Assessment and Plan Maintaining Current Dose?: Yes Reason for dose change: No Dose Change Pharmacist Note Pharmacist Note Date: 12/01/18. Pharmacist note:PT is 73 year old male being treated for hospital acquired pneumonia goal trough 10-20mcg/ml. The patient has received vancomycin here at [facility] in the past most recently in february 2016. To achieve goal a 1.5g loading dose was started 12/01/18 @ 1300. Maintenance therapy will consist of 1g IV every 24 hours starting 12/02/18 @ 13. We will continue to monitor and adjust the dose as needed. AMPARO [facility]APIEN [facility] Dec 01, 2018 15:54
[2018-12-01] MEDS ORDERED: VANCOMYCIN HCL 500 MG in D5W MINI-BAG PLUS 100 ML IV ONE (16:00)
--- NOTE | 2018-12-01 16:17 | HPE ---
DATE OF ADMISSION: 12/01/2018 A 73-year-old male with past medical history of chronic oxygen-dependent chronic obstructive pulmonary disease (COPD), diabetes, hypertension, hyperlipidemia, coronary artery disease status post myocardial infarction (WV), history of coronary artery bypass graft (CABG) in 2009, chronic kidney disease (CKD) III. Baseline creatinine is 1.7. Presented to the emergency room with severe shortness of breath and cough with productive yellow sputum. He was just discharged yesterday from [facility] with a prednisone taper and 5 days of Levaquin; however, when he got home his symptoms worsened, and he came back to the ER for evaluation. He denies any subjective feeling of fever, aches, or chills. He has no chest pain or palpitations. In the ER he had a diagnosis, which showed worsening of his right lower and upper lobe infiltrates. He was given intravenous (IV) Solu-Medrol and was started on Zosyn and vancomycin for likely hospital-acquired pneumonia. He will be admitted for further management. PAST MEDICAL HISTORY: 1. Hypertension. 2. Diabetes. 3. Hyperlipidemia. 4. History of coronary artery disease, status post W[place], status post CABG in 2009. 5. CKD III. Baseline creatinine is 1.7. 6. Anxiety. 7. Depression. 8. Insomnia. 9. Paroxysmal atrial fibrillation. 10. History of urinary retention. ALLERGIES: He has drug allergies to SULFA medications. FAMILY HISTORY: Noncontributory. SOCIAL HISTORY: Patient was a heavy smoker. Quit in 2009. Denies alcohol or illicit drugs. HOME MEDICATIONS: - Tylenol 650 mg orally every 4 hours as needed - Combivent one puff inhaled four times a day as needed - DuoNeb one unit dose nebulizer four times a day as needed - alprazolam 0.25 mg orally three times a day as needed - apixaban 5 mg orally twice daily - aspirin 81 mg orally daily - bisoprolol 5 mg orally daily - Colace 100 mg orally twice daily - ferrous sulfate 325 mg orally daily - fenofibrate 160 mg orally daily - finasteride 5 mg orally daily - Lasix 40 mg orally daily - Incruse Ellipta one puff inhaled daily - insulin glargine 22 units subcutaneous at bedtime - insulin Lispro before meals and at bedtime as per sliding scale - latanoprost one drop both eyes at bedtime - levothyroxine 250 mg orally daily for 5 days - lidocaine patch to both shoulders at bedtime - lisinopril 10 mg orally twice daily - omeprazole 20 mg orally daily - prednisone taper - rosuvastatin 10 mg orally at bedtime - Advair 500/50 one puff inhaled twice daily - sertraline 50 mg orally daily - tamsulosin 0.4 mg orally at bedtime - trazodone 100 mg orally in the evening REVIEW OF SYSTEMS: Negative for all 10 major systems except what is mentioned in the history of present illness (HPI). VITAL SIGNS: Blood pressure 143/63, heart rate is 77, regular, respiratory 16, temperature is 98.3, oxygens saturation is 93% on 3 liters nasal cannula. HEAD: Atraumatic, normocephalic. NECK: Supple. No jugular venous distention (JVD). LUNGS: Have bilateral rhonchi. S1, S2 audible. No murmurs appreciated. ABDOMEN: Soft. Positive bowel sounds. No pedal edema. SKIN: Intact. NEUROLOGIC: Patient awake, alert, oriented times three. LABORATORY DATA: WBC 10.9, hemoglobin is 11.6, hematocrit 37.4, platelets are 213,000. Sodium 138, potassium 4.6, chloride 102, CO2 of 27, anion gap 9, BUN 78, creatinine 1.5, lactic acid 1.7. Troponin 0.03. TSH is 0.180. BTNP is 2993. IMPRESSION: 1. Hospital-acquired pneumonia. 2. Influenza A infection. 3. Chronic obstructive pulmonary disease (COPD) exacerbation. PLAN: Patient is to be admitted to the medical/surgical floor. I am going to start the patient on intravenous (IV) Zosyn, vancomycin, and Solu-Medrol 40 IV every 8 and also DuoNeb. I will also start Tamiflu at 73 by mouth twice a day. Will also give DuoNeb every 4 as needed. Otherwise continue other preadmission medications and will continue his care in the medical/surgical floor. Will also send a sputum culture if possible. I am also getting speech pathology evaluation to ensure this patient is not a silent aspirator.
[2018-12-01 16:26] VITALS: BP 135/62
[2018-12-01] MEDS: BISOPROLOL FUMARATE 5 MG TAB PO SCH (16:32)
[2018-12-01] MEDS ORDERED: DEXTROSE 50% 50 ML SYRINGE IV PRN (20:30)
[2018-12-01] MEDS ORDERED: GLUCAGON FOR INJ 1 MG VIAL (J1610) SC PRN (20:30)
[2018-12-01] MEDS ORDERED: GLUCOSE 4 GM CHEW TABLET PO PRN (20:30)
[2018-12-01] MEDS ORDERED: HumaLOG INSULIN (NovoLOG) PER UNIT SC ONE (20:30)
[2018-12-01] MEDS: TAMSULOSIN 0.4 MG CAP PO SCH (20:40)
[2018-12-01] MEDS: APIXABAN 5 MG TAB (ELIQUIS) PO SCH (20:40)
[2018-12-01] MEDS: LISINOPRIL 10 MG TAB PO SCH (20:40)
[2018-12-01] MEDS: DOCUSATE SODIUM 100 MG CAP PO SCH (20:40)
[2018-12-01] MEDS: OSELTAMIVIR PHOSPHATE 30MG CAPSULE PO SCH (20:40)
[2018-12-01] MEDS: ROSUVASTATIN 10 MG TAB (CRESTOR) PO SCH (20:40)
[2018-12-01] MEDS: LEVEMIR (INSULIN DETEMIR) 1 UNITS/0.01ML SC SCH (20:41)
[2018-12-01] MEDS: LIDOCAINE 5% (LIDODERM) PATCH TOP SCH (20:42)
[2018-12-01 22:00] VITALS: BP 114/74
[2018-12-01] MEDS: methylPREDNISolone INJ 40 MG/1 ML VIAL (J2920) IV SCH (22:00)
[2018-12-01] MEDS: ALPRAZolam 0.25 MG TAB PO PRN (22:00)
[2018-12-01] MEDS: PIPERACILLIN/TAZOBACTAM SOD 2.25 GM in D5W MINI-BAG PLUS 50 ML IV SCH (22:01)
[2018-12-01] MEDS: LATANOPROST 0.005% OPHTH SOLN 2.5 ML OU SCH (23:25)
[2018-12-02 06:00] VITALS: BP 116/57
[2018-12-02] MEDS: methylPREDNISolone INJ 40 MG/1 ML VIAL (J2920) IV SCH ×3 (06:04→22:27)
[2018-12-02] MEDS: PIPERACILLIN/TAZOBACTAM SOD 2.25 GM in D5W MINI-BAG PLUS 50 ML IV SCH ×3 (06:04→22:27)
[2018-12-02 06:31] LABS: BASO % 0.3 % (0.0-1.0); HEMATOCRIT 30.7 % (42.0-52.0); HEMOGLOBIN 9.8 g/dl (13.5-17.5); LYMPH # 0.4 10^3/uL (1.5-4.5); LYMPH % 4.8 % (24.0-44.0); MEAN CORPUSCULAR HEMOGLOBIN 28.5 pg (27.0-33.0); MEAN CORPUSCULAR HGB CONC 31.9 g/dl (32.0-36.5); MEAN CORPUSCULAR VOLUME 89.2 fl (80.0-96.0); MONO # 0.5 10^3/uL (0.0-0.8); MONO % 5.5 % (0.0-5.0); NEUTROPHILS # 7.8 10^3/uL (1.8-7.7); NEUTROPHILS % 84.9 % (36.0-66.0); PLATELET COUNT, AUTOMATED 182 10^3/uL (150-450); RED BLOOD COUNT 3.44 10^6/uL (4.30-6.10); WHITE BLOOD COUNT 9.2 10^3/uL (4.0-10.0)
[2018-12-02 07:01] LABS: CALCIUM LEVEL 7.8 MG/DL (8.8-10.2); CREATININE FOR GFR 1.62 MG/DL (0.70-1.30); GLOMERULAR FILTRATION RATE 44.4 (>42); POTASSIUM SERUM 4.4 MEQ/L (3.5-5.1)
--- NOTE | 2018-12-02 07:34 | ECGEPIP ---
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
[2018-12-02] MEDS: APIXABAN 5 MG TAB (ELIQUIS) PO SCH ×2 (08:19→22:29)
[2018-12-02] MEDS: FUROSEMIDE 20 MG TAB PO SCH (08:19)
[2018-12-02] MEDS: OSELTAMIVIR PHOSPHATE 30MG CAPSULE PO SCH ×2 (08:19→22:29)
[2018-12-02] MEDS: OMEPRAZOLE 20 MG CAP PO SCH (08:19)
[2018-12-02] MEDS: DOCUSATE SODIUM 100 MG CAP PO SCH ×2 (08:19→22:29)
[2018-12-02] MEDS: FENOFIBRATE 145 MG TAB (TRICOR) PO SCH (08:19)
[2018-12-02] MEDS: HumaLOG INSULIN (NovoLOG) PER UNIT SC SCH ×4 (08:19→22:30)
[2018-12-02] MEDS: FINASTERIDE 5 MG TAB PO SCH (08:19)
[2018-12-02] MEDS: ASPIRIN 81 MG ENTERIC TAB PO SCH (08:19)
[2018-12-02] MEDS: FERROUS SULFATE 325MG TAB PO SCH (08:20)
[2018-12-02] MEDS: BISOPROLOL FUMARATE 5 MG TAB PO SCH (08:20)
[2018-12-02] MEDS: LISINOPRIL 10 MG TAB PO SCH ×2 (08:20→22:28)
[2018-12-02] MEDS: SERTRALINE HCL 50 MG TAB PO SCH (08:20)
[2018-12-02] MEDS: **NOTE PATIENT COMMENT** MISC XX SCH (08:24)
[2018-12-02 09:10] LABS: INFLUENZA A AMPLIFICATION POSITIVE (NEGATIVE)
--- NOTE | 2018-12-02 09:56 | IPNPDOC ---
Subjective Date Seen The patient was seen on 12/02/18. 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 With all the movement, and carrying a heavy O2 tank, this really wore him out. By the time he got home he went straight to bed, felt too weak to take any of his meds, this worsened his breathing making him nervous. His brother called to check on him and then called the ambulance. He states that he feels about the same today as he did when he left. He wants to be stronger so that when he goes home he can do all the things the was doing on his own before he came to the hospital. He states that he doesn't have the financial means to hire help, and he doesn't want to sell his home for [place]. General: Reports: Fatigue Constitutional: Denies: Chills, Fever Pulmonary: Reports: Dyspnea, Cough Cardiovascular: Denies: Chest Pain, Palpitations Gastrointestinal: Denies: Nausea, Vomiting, Abdominal Pain, Diarrhea Neurological: Reports: Weakness Psych: Reports: Mood Normal Objective Physical Examination General Exam: Positive: Alert, Cooperative, No Acute Distress ENT Exam: Positive: Mucous membr. moist/pink Chest Exam: Positive: Rhonchi (diffuse rhonchi and wheezing, BS diminished, breathing becomes labored with conversation), Wheezing; Negative: Clear to auscultation, Normal air movement Heart Exam: Positive: Rate Normal, Normal S1, Normal S2 Abdomen Exam: Positive: Normal bowel sounds, Soft; Negative: Tenderness Extremity Exam: Positive: Edema (trace BLE, improved c/w Tues.) Neuro Exam: Positive: Normal Speech Psych Exam: Positive: Mood NL Assessment /Plan Problems (1) Hospital acquired PNA Status: Acute Response to Treatment: Stable Discussed With: Nurse, Patient Problem Specific Plan: Monitor Clinically, Repeat Labs Problem Text: Repeat CXR on presentation shows progression of infiltrates, antibiotics changed from Levaquin to Zosyn, vanco. Cont with nebs (2) Influenza A Status: Acute Response to Treatment: Stable Problem Specific Plan: Monitor Clinically, Repeat Labs Problem Text: Tamiflu D2 (3) Chronic respiratory failure with hypoxia Status: Chronic Response to Treatment: Stable Problem Specific Plan: Monitor Clinically, Repeat Labs (4) Diastolic CHF, chronic Status: Chronic Response to Treatment: Stable Problem Specific Plan: Monitor Clinically (5) DM2 (diabetes mellitus, type 2) Status: Chronic Problem Specific Plan: Monitor Clinically, Repeat Labs Problem Text: Cont with SSI, Levemir. (6) Atrial fibrillation Status: Chronic Response to Treatment: Stable Problem Specific Plan: Monitor Clinically Problem Text: Rate controlled, cont with Eliquis Plan/VTE VTE Prophylaxis Ordered?: Yes Plan Family Medicine Attending Note: I saw and examined Mr. Cruz, discussed with TIFFANIE Looney. Agree with her note as documented. My honest assessment is that the patient is about where he was and he was discharged yesterday. I'm not certain he's had a true exacerbation of his disease. It is true that he has i nfluenza A, and we did not know that prior to his discharge. I strongly suspect that he picked that infection of while he was here in the hospital during his previous admission. I doubt that it's an acute infection, he's probably had it for 2-3 days already. I do believe that the fact he returned within 24 hours means that the home that he chooses to live and is not exactly a safe living environment for him. He admitted to us that he was feeling poorly and did not plan to get out of his bed even to take his medicines. He would've decompensated at some point, but this would because of a lack of self-care. I do think we should seriously look at SNF options for longer term subacute rehabilitation or even placement when we get to discharge. 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, Fishbone Vital Signs/I&O Vital Signs Date Time Temp Pulse Resp B/P (MAP) Pulse Ox O2 Delivery O2 Flow Rate FiO2 12/02/18 08:20 62 116/57 12/02/18 08:20 3.0 12/02/18 06:00 98.1 20 98 Nasal Cannula I&O- Last 24 Hours up to 6 AM 12/02/18 06:00 Intake Total 2275 ml Output Total 1250 ml Balance 1025 ml Laboratory Data 24H LABS Laboratory Tests 2 12/01/18 12:45: Immature Granulocyte % (Auto) 2.8, White Blood Count 10.9H, Red Blood Count 4.13L, Hemoglobin 11.6L, Hematocrit 37.4L, Mean Corpuscular Volume 90.6, Mean Corpuscular Hemoglobin 28.1, Mean Corpuscular Hemoglobin Concent 31.0L, Red Cell Distribution Width 17.3H, Platelet Count 213, Neutrophils (%) (Auto) 86.6H, Lymphocytes (%) (Auto) 4.3L, Monocytes (%) (Auto) 6.0H, Eosinophils (%) (Auto) 0.0, Basophils (%) (Auto) 0.3, Neutrophils # (Auto) 9.4H, Lymphocytes # (Auto) 0.5L, Monocytes # (Auto) 0.7, Eosinophils # (Auto) 0.0, Basophils # (Auto) 0.0, Nucleated Red Blood Cells % (auto) 0.0, Prothrombin Time 15.2H, Prothromb Time International Ratio 1.18, Blood Gas Bicarbonate Standard 27.9, Venous Blood pH 7.415, Venous Blood Partial Pressure CO2 46.4, Venous Blood Partial Pressure O2 85.9H, Venous Blood Total Carbon Dioxide 30.5H, Venous Blood HCO3 29.1H, Venous Blood Oxygen Saturation 96.1H, Venous Blood Base Excess 3.8H, Anion Gap 9, Glomerular Filtration Rate 48.6, Lactic Acid Level 1.7, Calcium Level 8.6L, Aspartate Amino Transf (AST/SGOT) 43H, Alanine Aminotransferase (ALT/SGPT) 48, Alkaline Phosphatase 54, Total Bilirubin 0.7, Direct Bilirubin 0.3H, Total Creatine Kinase 110, Creatine Kinase MB 4.0H, Creatine Kinase MB Relative Index 3.91, Troponin I 0.03, UC-Ovp-V-Type Natriuretic Peptide 2993H, Total Protein 5.9L, Albumin 2.5L, Albumin/Globulin Ratio 0.74L, Thyroid Stimulating Hormone (TSH) 0.180L, Influenza Type A (RT-PCR) POSITIVEH, Influenza Type B (RT-PCR) NEGATIVE 12/02/18 05:32: Immature Granulocyte % (Auto) 4.5H, White Blood Count 9.2, Red Blood Count 3.44L, Hemoglobin 9.8L, Hematocrit 30.7L, Mean Corpuscular Volume 89.2, Mean Corpuscular Hemoglobin 28.5, Mean Corpuscular Hemoglobin Concent 31.9L, Red Cell Distribution Width 16.7H, Platelet Count 182, Neutrophils (%) (Auto) 84.9H, Lymphocytes (%) (Auto) 4.8L, Monocytes (%) (Auto) 5.5H, Eosinophils (%) (Auto) 0.0, Basophils (%) (Auto) 0.3, Neutrophils # (Auto) 7.8H, Lymphocytes # (Auto) 0.4L, Monocytes # (Auto) 0.5, Eosinophils # (Auto) 0.0, Basophils # (Auto) 0.0, Nucleated Red Blood Cells % (auto) 0.0, Anion Gap 9, Glomerular Filtration Rate 44.4, Calcium Level 7.8L, Blood Urea Nitrogen 78H, Creatinine 1.62H, Sodium Level 134L, Potassium Level 4.4, Chloride Level 99, Carbon Dioxide Level 26 CBC/BMP Laboratory Tests 12/01/18 12:45 Red Blood Count 4.13 L, Mean Corpuscular Volume 90.6, Mean Corpuscular Hemoglobin 28.1, Mean Corpuscular Hemoglobin Concent 31.0 L, Red Cell Distribution Width 17.3 H, Neutrophils (%) (Auto) 86.6 H, Lymphocytes (%) (Auto) 4.3 L, Monocytes (%) (Auto) 6.0 H, Eosinophils (%) (Auto) 0.0, Basophils (%) (Auto) 0.3, Neutrophils # (Auto) 9.4 H, Lymphocytes # (Auto) 0.5 L, Monocytes # (Auto) 0.7, Eosinophils # (Auto) 0.0, Basophils # (Auto) 0.0 12/02/18 05:32 Red Blood Count 3.44 L, Mean Corpuscular Volume 89.2, Mean Corpuscular Hemoglobin 28.5, Mean Corpuscular Hemoglobin Concent 31.9 L, Red Cell Distri bution Width 16.7 H, Neutrophils (%) (Auto) 84.9 H, Lymphocytes (%) (Auto) 4.8 L, Monocytes (%) (Auto) 5.5 H, Eosinophils (%) (Auto) 0.0, Basophils (%) (Auto) 0.3, Neutrophils # (Auto) 7.8 H, Lymphocytes # (Auto) 0.4 L, Monocytes # (Auto) 0.5, Eosinophils # (Auto) 0.0, Basophils # (Auto) 0.0, Calcium Level 7.8 L Microbiology Microbiology 12/01/18 Blood Culture - Preliminary, Resulted 12/01/18 Blood Culture - Preliminary, Resulted 12/01/18 MRSA Screen, Received Pending ZOEY GILBERT PA-C Dec 02, 2018 9:56 am Mervin Hodge MD Dec 03, 2018 2:53 pm
[2018-12-02] MEDS: IPRATROPIUM 0.5MG/ALBUTEROL 2.5MG INH SOL UD 3ML (DUONEB)(J7620) NEB PRN (10:13)
[2018-12-02] MEDS: VANCOMYCIN HCL 1,000 MG, VIAL MATE ADAPTER 1 EACH in D5W 250 ML IV SCH (12:37)
[2018-12-02 14:00] VITALS: BP 117/56
[2018-12-02] MEDS: ACETAMINOPHEN TAB 650MG DOSE (2X325MG) PO PRN ×2 (16:32→22:31)
[2018-12-02 22:00] VITALS: BP 132/62
[2018-12-02] MEDS: TAMSULOSIN 0.4 MG CAP PO SCH (22:28)
[2018-12-02] MEDS: traZODone 100 MG TAB PO SCH (22:29)
[2018-12-02] MEDS: ROSUVASTATIN 10 MG TAB (CRESTOR) PO SCH (22:29)
[2018-12-02] MEDS: LEVEMIR (INSULIN DETEMIR) 1 UNITS/0.01ML SC SCH (22:30)
[2018-12-02] MEDS: LATANOPROST 0.005% OPHTH SOLN 2.5 ML OU SCH (22:31)
[2018-12-02] MEDS: LIDOCAINE 5% (LIDODERM) PATCH TOP SCH (22:31)
[2018-12-03] MEDS: IPRATROPIUM 0.5MG/ALBUTEROL 2.5MG INH SOL UD 3ML (DUONEB)(J7620) NEB PRN ×2 (02:35→10:58)
[2018-12-03 06:00] VITALS: BP 133/60
[2018-12-03] MEDS: methylPREDNISolone INJ 40 MG/1 ML VIAL (J2920) IV SCH ×3 (06:43→22:05)
[2018-12-03] MEDS: PIPERACILLIN/TAZOBACTAM SOD 2.25 GM in D5W MINI-BAG PLUS 50 ML IV SCH ×3 (06:44→22:07)
[2018-12-03] MEDS: ALPRAZolam 0.25 MG TAB PO PRN (06:57)
[2018-12-03] MEDS: OMEPRAZOLE 20 MG CAP PO SCH (08:08)
[2018-12-03] MEDS: ASPIRIN 81 MG ENTERIC TAB PO SCH (08:08)
[2018-12-03] MEDS: SERTRALINE HCL 50 MG TAB PO SCH (08:08)
[2018-12-03] MEDS: FINASTERIDE 5 MG TAB PO SCH (08:08)
[2018-12-03] MEDS: FENOFIBRATE 145 MG TAB (TRICOR) PO SCH (08:09)
[2018-12-03] MEDS: APIXABAN 5 MG TAB (ELIQUIS) PO SCH ×2 (08:09→22:03)
[2018-12-03] MEDS: FUROSEMIDE 20 MG TAB PO SCH (08:09)
[2018-12-03] MEDS: OSELTAMIVIR PHOSPHATE 30MG CAPSULE PO SCH ×2 (08:09→22:03)
[2018-12-03] MEDS: LISINOPRIL 10 MG TAB PO SCH ×2 (08:13→22:04)
[2018-12-03] MEDS: BISOPROLOL FUMARATE 5 MG TAB PO SCH (08:14)
[2018-12-03] MEDS: FERROUS SULFATE 325MG TAB PO SCH (08:14)
[2018-12-03] MEDS: HumaLOG INSULIN (NovoLOG) PER UNIT SC SCH ×4 (08:15→22:06)
[2018-12-03] MEDS: DOCUSATE SODIUM 100 MG CAP PO SCH ×2 (08:24→22:03)
[2018-12-03] MEDS: **NOTE PATIENT COMMENT** MISC XX SCH (09:12)
--- NOTE | 2018-12-03 09:57 | IPNPDOC ---
Subjective Date Seen The patient was seen on 12/03/18. Subjective Chief Complaint/HPI Pt this morning is without new concerns. He states that he really isn't feeling much better. He states that he would like to go to rehab before going home. General: Reports: Fatigue Constitutional: Denies: Chills, Fever Pulmonary: Reports: Dyspnea, Cough Cardiovascular: Denies: Chest Pain, Palpitations Gastrointestinal: Denies: Vomiting, Diarrhea Neurological: Reports: Weakness Psych: Reports: Mood Normal Objective Physical Examination General Exam: Positive: Alert, Cooperative, No Acute Distress ENT Exam: Positive: Mucous membr. moist/pink Chest Exam: Positive: Rhonchi (diffuse rhonchi and wheezing, BS diminished, improved c/w yesterday), Wheezing; Negative: Clear to auscultation, Normal air movement Heart Exam: Positive: Rate Normal, Normal S1, Normal S2 Abdomen Exam: Positive: Normal bowel sounds, Soft; Negative: Tenderness Extremity Exam: Positive: Edema (trace BLE, improved c/w Tues.) Neuro Exam: Positive: Normal Speech Psych Exam: Positive: Mood NL Assessment /Plan Problems (1) Hospital acquired PNA Status: Acute Response to Treatment: Stable Discussed With: Nurse, Patient Problem Specific Plan: Monitor Clinically, Repeat Labs Problem Text: 12/03 Zosyn/Levo D 3, Cont with Nebs, prob can change to PO this weekend. 12/02 Repeat CXR on presentation shows progression of infiltrates, antibiotics changed from Levaquin to Zosyn, vanco. Cont with nebs (2) Influenza A Status: Acute Response to Treatment: Stable Problem Specific Plan: Monitor Clinically, Repeat Labs Problem Text: Tamiflu D3 (3) Chronic respiratory failure with hypoxia Status: Chronic Response to Treatment: Stable Problem Specific Plan: Monitor Clinically, Repeat Labs (4) Diastolic CHF, chronic Status: Chronic Response to Treatment: Stable Problem Specific Plan: Monitor Clinically (5) DM2 (diabetes mellitus, type 2) Status: Chronic Problem Specific Plan: Monitor Clinically, Repeat Labs Problem Text: Cont with SSI, Levemir. (6) Atrial fibrillation Status: Chronic Response to Treatment: Stable Problem Specific Plan: Monitor Clinically Problem Text: Rate controlled, cont with Eliquis Plan/VTE VTE Prophylaxis Ordered?: Yes Plan Anticipated Discharge: Sub Acute Rehab Family Medicine Attending Note: I saw and examined Mr. Cruz, discussed with TIFFANIE Looney. Agree with her note as documented. He seems relatively stable to me. He may be making slow change. He will need short-term rehabilitation on discharge. I would encourage continued consideration of alternate living arrangements for him as I am not sure his home is the safest environment for him. 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, Fishbone Vital Signs/I&O Vital Signs Date Time Temp Pulse Resp B/P (MAP) Pulse Ox O2 Delivery O2 Flow Rate FiO2 12/03/18 08:13 132/66 12/03/18 06:00 98.9 88 20 97 Nasal Cannula 2.0 I&O- Last 24 Hours up to 6 AM 12/03/18 06:00 Intake Total 2580 ml Output Total 1625 ml Balance 955 ml Laboratory Data 24H LABS Laboratory Tests 2 12/02/18 11:59: Bedside Glucose (Misc Panel) 334H 12/02/18 16:58: Bedside Glucose (Misc Panel) 472H 12/03/18 06:22: Bedside Glucose (Misc Panel) 287H Microbiology Microbiology 12/01/18 Blood Culture - Preliminary, Resulted 12/01/18 Blood Culture - Preliminary, Resulted 12/01/18 MRSA Screen, Received Pending ZOEY GILBERT PA-C Dec 03, 2018 09:57 Mervin Hodge MD Dec 04, 2018 18:13
[2018-12-03 11:14] LABS: HEMATOCRIT 31.1 % (42.0-52.0); MEAN CORPUSCULAR HEMOGLOBIN 28.2 pg (27.0-33.0); MEAN CORPUSCULAR HGB CONC 32.2 g/dl (32.0-36.5); MEAN CORPUSCULAR VOLUME 87.6 fl (80.0-96.0); PLATELET COUNT, AUTOMATED 167 10^3/uL (150-450); RED BLOOD COUNT 3.55 10^6/uL (4.30-6.10); WHITE BLOOD COUNT 10.9 10^3/uL (4.0-10.0)
[2018-12-03 11:55] LABS: ALBUMIN 1.8 GM/DL (3.2-5.2); BILIRUBIN,TOTAL 0.4 MG/DL (0.2-1.0); CALCIUM LEVEL 7.8 MG/DL (8.8-10.2); CREATININE FOR GFR 1.31 MG/DL (0.70-1.30); GLOMERULAR FILTRATION RATE 56.8 (>42); POTASSIUM SERUM 4.6 MEQ/L (3.5-5.1); TOTAL PROTEIN 5.3 GM/DL (6.4-8.2)
[2018-12-03] MEDS: ACETAMINOPHEN TAB 650MG DOSE (2X325MG) PO PRN (12:06)
[2018-12-03] MEDS: VANCOMYCIN HCL 1,000 MG, VIAL MATE ADAPTER 1 EACH in D5W 250 ML IV SCH (13:47)
[2018-12-03 14:00] VITALS: BP 139/65
--- NOTE | 2018-12-03 14:40 | PHACANCOPD ---
PHARMACY VANCOMYCIN DOSING Pt Demographics Demographics Patient Age:73 , Weight:75.000 , Gender: male Adjusted Body Weight Date: 12/01/18, Adjusted Body Weight: [75] Kg Vancomycin Vancomycin indication: HAP Vancomycin Target Ranges: 10-20 mcg/ml Vancomycin Load Y/N: Yes Load Dose Date Time Vancomycin Load Dose: 1.5G Date: 12/01/18 Time: 13 Vancomycin Dose Date: 12/01/18. Current Vancomycin Dose: [1G IV Q24H ] Intermittent Dosing?: No Labs Micro Microbiology 12/01/18 Blood Culture - Preliminary, Resulted 12/01/18 Blood Culture - Preliminary, Resulted 12/01/18 MRSA Screen - Final, Complete Creatinine Clearance Date:12/01/18. Creatinine Clearance: [~45ML/MIN]. Assessment and Plan Maintaining Current Dose?: No Reason for dose change: Trough too high, Trough too low, No Dose Change Pharmacist Note Pharmacist Note 12/03/18: Day #3 vancomycin therapy for the treatment of HAP. Trough level today resulted at 8.2mcg/ml prior to the 3rd dose. Scr has improved from 1.5 on admit to 1.31 today. We will increase the patient's regimen to 1g IV Q12H, and draw a follow-up trough level tomorrow, 12/04/18, at 1200. We will continue to monitor and make further dose adjustments if needed. Date: 12/01/18. Pharmacist note:PT is 73 year old male being treated for hospital acquired pneumonia goal trough 10-20mcg/ml. The patient has received vancomycin here at [facility] in the past most recently in february 2016. To achieve goal a 1.5g loading dose was started 12/01/18 @ 1300. Maintenance therapy will consist of 1g IV every 24 hours starting 12/02/18 @ 13. We will continue to monitor and adjust the dose as needed. RAJEEV SUAZO PHARMACY Dec 03, 2018 14:40
[2018-12-03 22:00] VITALS: BP 129/64
[2018-12-03] MEDS: traZODone 100 MG TAB PO SCH (22:03)
[2018-12-03] MEDS: TAMSULOSIN 0.4 MG CAP PO SCH (22:03)
[2018-12-03] MEDS: ROSUVASTATIN 10 MG TAB (CRESTOR) PO SCH (22:04)
[2018-12-03] MEDS: LIDOCAINE 5% (LIDODERM) PATCH TOP SCH (22:05)
[2018-12-03] MEDS: LATANOPROST 0.005% OPHTH SOLN 2.5 ML OU SCH (22:06)
[2018-12-03] MEDS: LEVEMIR (INSULIN DETEMIR) 1 UNITS/0.01ML SC SCH (22:07)
[2018-12-04] MEDS: VANCOMYCIN HCL 1,000 MG, VIAL MATE ADAPTER 1 EACH in D5W 250 ML IV SCH ×2 (00:29→12:31)
[2018-12-04] MEDS: ACETAMINOPHEN TAB 650MG DOSE (2X325MG) PO PRN ×2 (03:07→22:44)
[2018-12-04] MEDS: methylPREDNISolone INJ 40 MG/1 ML VIAL (J2920) IV SCH ×3 (05:25→22:41)
[2018-12-04] MEDS: IPRATROPIUM 0.5MG/ALBUTEROL 2.5MG INH SOL UD 3ML (DUONEB)(J7620) NEB PRN ×4 (05:35→23:40)
[2018-12-04 06:00] VITALS: BP 121/59
[2018-12-04 06:24] LABS: HEMATOCRIT 30.8 % (42.0-52.0); HEMOGLOBIN 9.5 g/dl (13.5-17.5); MEAN CORPUSCULAR HEMOGLOBIN 27.9 pg (27.0-33.0); MEAN CORPUSCULAR HGB CONC 30.8 g/dl (32.0-36.5); MEAN CORPUSCULAR VOLUME 90.3 fl (80.0-96.0); PLATELET COUNT, AUTOMATED 193 10^3/uL (150-450); RED BLOOD COUNT 3.41 10^6/uL (4.30-6.10); WHITE BLOOD COUNT 12.5 10^3/uL (4.0-10.0)
[2018-12-04] MEDS: PIPERACILLIN/TAZOBACTAM SOD 2.25 GM in D5W MINI-BAG PLUS 50 ML IV SCH ×3 (06:29→22:41)
[2018-12-04 06:58] LABS: BILIRUBIN,TOTAL 0.4 MG/DL (0.2-1.0); CALCIUM LEVEL 7.5 MG/DL (8.8-10.2); CREATININE FOR GFR 1.63 MG/DL (0.70-1.30); GLOMERULAR FILTRATION RATE 44.1 (>42); POTASSIUM SERUM 5.2 MEQ/L (3.5-5.1); TOTAL PROTEIN 4.9 GM/DL (6.4-8.2)
[2018-12-04] MEDS: OSELTAMIVIR PHOSPHATE 30MG CAPSULE PO SCH ×2 (08:52→22:34)
[2018-12-04] MEDS: FENOFIBRATE 145 MG TAB (TRICOR) PO SCH (08:53)
[2018-12-04] MEDS: ASPIRIN 81 MG ENTERIC TAB PO SCH (08:53)
[2018-12-04] MEDS: OMEPRAZOLE 20 MG CAP PO SCH (08:53)
[2018-12-04] MEDS: DOCUSATE SODIUM 100 MG CAP PO SCH ×2 (08:53→22:33)
[2018-12-04] MEDS: APIXABAN 5 MG TAB (ELIQUIS) PO SCH ×2 (08:53→22:34)
[2018-12-04] MEDS: SERTRALINE HCL 50 MG TAB PO SCH (08:53)
[2018-12-04] MEDS: FUROSEMIDE 20 MG TAB PO SCH (08:53)
[2018-12-04] MEDS: FERROUS SULFATE 325MG TAB PO SCH (08:53)
[2018-12-04] MEDS: FINASTERIDE 5 MG TAB PO SCH (08:54)
[2018-12-04] MEDS: LISINOPRIL 10 MG TAB PO SCH ×2 (08:54→22:33)
[2018-12-04] MEDS: BISOPROLOL FUMARATE 5 MG TAB PO SCH (08:54)
[2018-12-04] MEDS: **NOTE PATIENT COMMENT** MISC XX SCH (08:55)
[2018-12-04] MEDS: HumaLOG INSULIN (NovoLOG) PER UNIT SC SCH ×4 (08:55→23:01)
[2018-12-04 14:00] VITALS: BP 130/70
--- NOTE | 2018-12-04 14:01 | PHACANCOPD ---
PHARMACY VANCOMYCIN DOSING Pt Demographics Demographics Patient Age:73 , Weight:75.000 , Gender: male Adjusted Body Weight Date: 12/01/18, Adjusted Body Weight: [75] Kg Events Past 24 Hours Events Past 24 Hours: NO: Dialysis, Diuretic Therapy, Change in CrCl, Fever, Elevation in WBC, Pending Diagnostics, Pending Procedures, Other Vancomycin Vancomycin indication: HAP Vancomycin Target Ranges: 10-20 mcg/ml Vancomycin Load Y/N: Yes Load Dose Date Time Vancomycin Load Dose: 1.5G Date: 12/01/18 Time: 13 Vancomycin Dose Date: 12/04/18. Current Vancomycin Dose: [1G IV Q12H] Date: 12/01/18. Current Vancomycin Dose: [1G IV Q24H ] Intermittent Dosing?: No Labs Labs Item Value Date Time White Blood Count 10.9 10^3/uL H 12/03/18 0840 White Blood Count 12.5 10^3/uL H 12/04/18 0529 Creatinine 1.31 MG/DL H 12/03/18 0840 Creatinine 1.63 MG/DL H 12/04/18 0529 Vancomycin Level Trough 19.8 UG/ML 12/04/18 1148 Vancomycin Level Trough 8.2 UG/ML L 12/03/18 1212 Micro Microbiology 12/01/18 Blood Culture - Final, Complete Enterococcus Faecalis 12/01/18 Blood Culture - Final, Complete Enterococcus Faecalis 12/01/18 MRSA Screen - Final, Complete Creatinine Clearance Date:12/01/18. Creatinine Clearance: [~45ML/MIN]. Assessment and Plan Maintaining Current Dose?: Yes Reason for dose change: No Dose Change Pharmacist Note Pharmacist Note Date: 12/04/18. Current Vancomycin Dose: [PT trough came back today at 19.8mcg/ml. Dosing will continue @ 1g vancomycin IV every 12 hours. We will continue to monitor and adjust the dose as needed.] 12/03/18: Day #3 vancomycin therapy for the treatment of HAP. Trough level today resulted at 8.2mcg/ml prior to the 3rd dose. Scr has improved from 1.5 on admit to 1.31 today. We will increase the patient's regimen to 1g IV Q12H, and draw a follow-up trough level tomorrow, 12/04/18, at 1200. We will continue to monitor and make further dose adjustments if needed. Date: 12/01/18. Pharmacist note:PT is 73 year old male being treated for hospital acquired pneumonia goal trough 10-20mcg/ml. The patient has received vancomycin here at [facility] in the past most recently in february 2016. To achieve goal a 1.5g loading dose was started 12/01/18 @ 1300. Maintenance therapy will consist of 1g IV every 24 hours starting 12/02/18 @ 13. We will continue to monitor and adjust the dose as needed. AMPARO ZAPIEN PHARMACY Dec 04, 2018 14:01
--- NOTE | 2018-12-04 14:45 | IPNPDOC ---
Subjective Date Seen The patient was seen on 12/04/18. Subjective Chief Complaint/HPI dyspnea Eyes: Denies: Pain ENT: Denies: Head Aches Skin: Denies: Rash Pulmonary: Reports: Dyspnea, Cough; Denies: Pleuritic Chest Pain Cardiovascular: Denies: Chest Pain, Palpitations Gastrointestinal: Denies: Nausea, Vomiting Hematologic: Denies: Bleeding Excessively, [place] Neurological: Denies: Weakness, Numbness Objective Physical Examination General Exam: Positive: Alert, Cooperative, No Acute Distress ENT Exam: Positive: Mucous membr. moist/pink Chest Exam: Positive: Rhonchi (diffuse rhonchi and wheezing, BS diminished, breathing becomes labored with conversation, perhaps less obvious than yesterday.), Wheezing; Negative: Clear to auscultation, Normal air movement Heart Exam: Positive: Rate Normal, Normal S1, Normal S2 Abdomen Exam: Positive: Normal bowel sounds, Soft; Negative: Tenderness Extremity Exam: Positive: Edema (trace BLE, improved c/w Tues.) Neuro Exam: Positive: Normal Speech Psych Exam: Positive: Mood NL Assessment /Plan Problems (1) Hospital acquired PNA Status: Acute Response to Treatment: Stable Discussed With: Nurse, Patient Problem Specific Plan: Monitor Clinically, Repeat Labs Problem Text: 12/03 Zosyn/Levo D 3, Cont with Nebs, prob can change to PO this weekend. 12/02 Repeat CXR on presentation shows progression of infiltrates, antibiotics changed from Levaquin to Zosyn, vanco. Cont with nebs (2) Influenza A Status: Acute Response to Treatment: Stable Problem Specific Plan: Monitor Clinically, Repeat Labs Problem Text: Tamiflu D4 (3) Chronic respiratory failure with hypoxia Status: Chronic Response to Treatment: Stable Problem Specific Plan: Monitor Clinically, Repeat Labs (4) Diastolic CHF, chronic Status: Chronic Response to Treatment: Stable Problem Specific Plan: Monitor Clinically Problem Text: 40mg IV lasix X1 today. proBNP was elevated earlier in admission, consider increase in po lasix as well. (5) DM2 (diabetes mellitus, type 2) Status: Chronic Problem Specific Plan: Monitor Clinically, Repeat Labs Problem Text: Cont with SSI, Levemir. glucoses up due to glucocorticoid use. (6) Atrial fibrillation Status: Chronic Response to Treatment: Stable Problem Specific Plan: Monitor Clinically Problem Text: Rate controlled, cont with Eliquis Plan/VTE VTE Prophylaxis Ordered?: Yes Plan Anticipated Discharge: Sub Acute Rehab VS, I&O, 24H, Fishbone Vital Signs/I&O Vital Signs Date Time Temp Pulse Resp B/P (MAP) Pulse Ox O2 Delivery O2 Flow Rate FiO2 12/04/18 14:00 97.8 82 22 130/70 (90) 94 Nasal Cannula 2.0 I&O- Last 24 Hours up to 6 AM 12/04/18 06:00 Intake Total 4062 ml Output Total 2775 ml Balance 1287 ml Laboratory Data 24H LABS Laboratory Tests 2 12/03/18 16:33: Bedside Glucose (Misc Panel) 395H 12/04/18 05:29: Nucleated Red Blood Cells % (auto) 0.0, Anion Gap 8, Glomerular Filtration Rate 44.1, Blood Urea Nitrogen 67H, Creatinine 1.63H, Sodium Level 134L, Potassium Level 5.2H, Chloride Level 100, Carbon Dioxide Level 26, Calcium Level 7.5L, Aspartate Amino Transf (AST/SGOT) 18, Alanine Aminotransferase (ALT/SGPT) 46, Alkaline Phosphatase 52, Total Bilirubin 0.4, Total Protein 4.9L, Albumin 2.0L, Albumin/Globulin Ratio 0.69L 12/04/18 11:48: Vancomycin Level Trough 19.8 CBC/BMP Laboratory Tests 12/04/18 05:29 Red Blood Count 3.41 L, Mean Corpuscular Volume 90.3, Mean Corpuscular Hemoglobin 27.9, Mean Corpuscular Hemoglobin Concent 30.8 L, Red Cell Distribution Width 16.4 H, Calcium Level 7.5 L, Aspartate Amino Transf (AST/SGOT) 18, Alanine Aminotransferase (ALT/SGPT) 46, Alkaline Phosphatase 52, Total Bilirubin 0.4, Total Protein 4.9 L, Albumin 2.0 L Microbiology Microbiology 12/01/18 Blood Culture - Final, Complete Enterococcus Faecalis 12/01/18 Blood Culture - Final, Complete Enterococcus Faecalis 12/01/18 MRSA Screen - Final, Complete Mark Tripp MD Dec 04, 2018 14:45
[2018-12-04] MEDS ORDERED: FUROSEMIDE 40 MG/4 ML VIAL (J1940) IV ONE (15:00)
[2018-12-04 22:00] VITALS: BP 128/80
[2018-12-04] MEDS: TAMSULOSIN 0.4 MG CAP PO SCH (22:34)
[2018-12-04] MEDS: traZODone 100 MG TAB PO SCH (22:34)
[2018-12-04] MEDS: ROSUVASTATIN 10 MG TAB (CRESTOR) PO SCH (22:34)
[2018-12-04] MEDS: LEVEMIR (INSULIN DETEMIR) 1 UNITS/0.01ML SC SCH (22:35)
[2018-12-04] MEDS: LATANOPROST 0.005% OPHTH SOLN 2.5 ML OU SCH (22:36)
[2018-12-04] MEDS: LIDOCAINE 5% (LIDODERM) PATCH TOP SCH (22:40)
[2018-12-05] MEDS: ALPRAZolam 0.25 MG TAB PO PRN ×2 (01:57→22:22)
[2018-12-05] MEDS: methylPREDNISolone INJ 40 MG/1 ML VIAL (J2920) IV SCH ×3 (05:27→21:11)
[2018-12-05 06:00] VITALS: BP 129/95
[2018-12-05] MEDS: PIPERACILLIN/TAZOBACTAM SOD 2.25 GM in D5W MINI-BAG PLUS 50 ML IV SCH ×3 (06:35→22:22)
[2018-12-05] MEDS: IPRATROPIUM 0.5MG/ALBUTEROL 2.5MG INH SOL UD 3ML (DUONEB)(J7620) NEB PRN ×2 (07:49→15:45)
[2018-12-05] MEDS: ASPIRIN 81 MG ENTERIC TAB PO SCH (09:12)
[2018-12-05] MEDS: FINASTERIDE 5 MG TAB PO SCH (09:12)
[2018-12-05] MEDS: FENOFIBRATE 145 MG TAB (TRICOR) PO SCH (09:12)
[2018-12-05] MEDS: FERROUS SULFATE 325MG TAB PO SCH (09:13)
[2018-12-05] MEDS: APIXABAN 5 MG TAB (ELIQUIS) PO SCH ×2 (09:13→21:11)
[2018-12-05] MEDS: BISOPROLOL FUMARATE 5 MG TAB PO SCH (09:13)
[2018-12-05] MEDS: FUROSEMIDE 80 MG TAB PO SCH (09:13)
[2018-12-05] MEDS: LISINOPRIL 10 MG TAB PO SCH ×2 (09:13→21:12)
[2018-12-05] MEDS: DOCUSATE SODIUM 100 MG CAP PO SCH ×2 (09:13→21:11)
[2018-12-05] MEDS: SERTRALINE HCL 50 MG TAB PO SCH (09:13)
[2018-12-05] MEDS: OSELTAMIVIR PHOSPHATE 30MG CAPSULE PO SCH ×2 (09:13→21:11)
[2018-12-05] MEDS: OMEPRAZOLE 20 MG CAP PO SCH (09:13)
[2018-12-05] MEDS: HumaLOG INSULIN (NovoLOG) PER UNIT SC SCH ×4 (09:14→21:10)
[2018-12-05] MEDS: **NOTE PATIENT COMMENT** MISC XX SCH (09:14)
[2018-12-05 14:00] VITALS: BP 124/74
--- NOTE | 2018-12-05 16:38 | IPNPDOC ---
Subjective Date Seen The patient was seen on 12/05/18. Subjective Chief Complaint/HPI dyspnea Constitutional: Denies: Chills ENT: Denies: Head Aches Skin: Denies: Rash, Lesions Pulmonary: Reports: Dyspnea (unchanged) Cardiovascular: Denies: Chest Pain, Palpitations Gastrointestinal: Denies: Nausea, Vomiting, Abdominal Pain Musculoskeletal: Denies: Neck Pain Neurological: Denies: Weakness Psych: Reports: Mood Normal Objective Physical Examination General Exam: Positive: Alert, Cooperative, No Acute Distress ENT Exam: Positive: Mucous membr. moist/pink Chest Exam: Positive: Rhonchi (diffuse rhonchi and wheezing, BS diminished, improved c/w yesterday), Wheezing (prolonged expiratory phase with coarse wheezes); Negative: Clear to auscultation, Normal air movement Heart Exam: Positive: Rate Normal, Normal S1, Normal S2 Abdomen Exam: Positive: Normal bowel sounds, Soft; Negative: Tenderness Extremity Exam: Positive: Edema (trace BLE, improved c/w Tues.) Neuro Exam: Positive: Normal Speech Psych Exam: Positive: Mood NL Assessment /Plan Problems (1) Hospital acquired PNA Status: Acute Response to Treatment: Stable Discussed With: Nurse, Patient Problem Specific Plan: Monitor Clinically, Repeat Labs Problem Text: 12/05: ABX day 5 12/03 Zosyn/Levo D 3, Cont with Nebs, prob can change to PO this weekend. 12/02 Repeat CXR on presentation shows progression of infiltrates, antibiotics changed from Levaquin to Zosyn, vanco. Cont with nebs (2) Influenza A Status: Acute Response to Treatment: Stable Problem Specific Plan: Monitor Clinically, Repeat Labs Problem Text: Tamiflu D4 (3) Chronic respiratory failure with hypoxia Status: Chronic Response to Treatment: Stable Problem Specific Plan: Monitor Clinically, Repeat Labs (4) Diastolic CHF, chronic Status: Chronic Response to Treatment: Stable Problem Specific Plan: Monitor Clinically Problem Text: 12/05: repeat proBNP tomorrow. 40mg IV lasix X1 today. proBNP was elevated earlier in admission, consider increase in po lasix as well. (5) DM2 (diabetes mellitus, type 2) Status: Chronic Problem Specific Plan: Monitor Clinically, Repeat Labs Problem Text: Cont with SSI, Levemir. glucoses up due to glucocorticoid use. (6) Atrial fibrillation Status: Chronic Response to Treatment: Stable Problem Specific Plan: Monitor Clinically Problem Text: Rate controlled, cont with Eliquis Plan/VTE VTE Prophylaxis Ordered?: Yes Plan Anticipated Discharge: Sub Acute Rehab VS, I&O, 24H, Fishbone Vital Signs/I&O Vital Signs Date Time Temp Pulse Resp B/P (MAP) Pulse Ox O2 Delivery O2 Flow Rate FiO2 12/05/18 14:00 97.8 81 19 124/74 (91) 94 Room Air 12/05/18 09:00 2.0 I&O- Last 24 Hours up to 6 AM 12/05/18 06:00 Intake Total 1190 ml Output Total 3475 ml Balance -2285 ml Laboratory Data 24H LABS Laboratory Tests 2 12/04/18 21:11: Bedside Glucose (Misc Panel) 486H Microbiology Microbiology 12/01/18 Blood Culture - Final, Complete Enterococcus Faecalis 12/01/18 Blood Culture - Final, Complete Enterococcus Faecalis 12/01/18 MRSA Screen - Final, Complete Mark Tripp MD Dec 05, 2018 16:38
[2018-12-05] MEDS: LIDOCAINE 5% (LIDODERM) PATCH TOP SCH (21:10)
[2018-12-05] MEDS: TAMSULOSIN 0.4 MG CAP PO SCH (21:11)
[2018-12-05] MEDS: ROSUVASTATIN 10 MG TAB (CRESTOR) PO SCH (21:11)
[2018-12-05] MEDS: LEVEMIR (INSULIN DETEMIR) 1 UNITS/0.01ML SC SCH (21:11)
[2018-12-05] MEDS: traZODone 100 MG TAB PO SCH (21:11)
[2018-12-05] MEDS: LATANOPROST 0.005% OPHTH SOLN 2.5 ML OU SCH (21:12)
[2018-12-05 22:00] VITALS: BP 118/57
[2018-12-06 06:00] VITALS: BP 142/75
[2018-12-06] MEDS: PIPERACILLIN/TAZOBACTAM SOD 2.25 GM in D5W MINI-BAG PLUS 50 ML IV SCH ×3 (06:09→22:05)
[2018-12-06] MEDS: methylPREDNISolone INJ 40 MG/1 ML VIAL (J2920) IV SCH ×2 (06:09→20:36)
[2018-12-06 06:15] LABS: HEMATOCRIT 29.7 % (42.0-52.0); HEMOGLOBIN 9.6 g/dl (13.5-17.5); MEAN CORPUSCULAR HEMOGLOBIN 28.1 pg (27.0-33.0); MEAN CORPUSCULAR HGB CONC 32.3 g/dl (32.0-36.5); MEAN CORPUSCULAR VOLUME 86.8 fl (80.0-96.0); PLATELET COUNT, AUTOMATED 204 10^3/uL (150-450); RED BLOOD COUNT 3.42 10^6/uL (4.30-6.10); WHITE BLOOD COUNT 15.8 10^3/uL (4.0-10.0)
[2018-12-06 06:44] LABS: CALCIUM LEVEL 8.1 MG/DL (8.8-10.2); CREATININE FOR GFR 1.66 MG/DL (0.70-1.30); GLOMERULAR FILTRATION RATE 43.2 (>42); MAGNESIUM LEVEL 2.4 MG/DL (1.8-2.4); POTASSIUM SERUM 4.8 MEQ/L (3.5-5.1)
[2018-12-06 08:21] LABS: C REACTIVE PROTEIN QUANTITATIV 1.08 MG/DL (0.00-0.30)
[2018-12-06] MEDS: FUROSEMIDE 80 MG TAB PO SCH (08:34)
[2018-12-06] MEDS: LISINOPRIL 10 MG TAB PO SCH ×2 (08:34→20:36)
[2018-12-06] MEDS: FENOFIBRATE 145 MG TAB (TRICOR) PO SCH (08:34)
[2018-12-06] MEDS: BISOPROLOL FUMARATE 5 MG TAB PO SCH (08:34)
[2018-12-06] MEDS: APIXABAN 5 MG TAB (ELIQUIS) PO SCH ×2 (08:34→20:36)
[2018-12-06] MEDS: SERTRALINE HCL 50 MG TAB PO SCH (08:34)
[2018-12-06] MEDS: DOCUSATE SODIUM 100 MG CAP PO SCH ×2 (08:35→20:36)
[2018-12-06] MEDS: OMEPRAZOLE 20 MG CAP PO SCH (08:35)
[2018-12-06] MEDS: FINASTERIDE 5 MG TAB PO SCH (08:35)
[2018-12-06] MEDS: FERROUS SULFATE 325MG TAB PO SCH (08:35)
[2018-12-06] MEDS: OSELTAMIVIR PHOSPHATE 30MG CAPSULE PO SCH (08:35)
[2018-12-06] MEDS: HumaLOG INSULIN (NovoLOG) PER UNIT SC SCH ×4 (08:35→20:37)
[2018-12-06] MEDS: ASPIRIN 81 MG ENTERIC TAB PO SCH (08:35)
[2018-12-06] MEDS: **NOTE PATIENT COMMENT** MISC XX SCH (08:36)
--- NOTE | 2018-12-06 08:47 | IPNPDOC ---
Subjective Date Seen The patient was seen on 12/06/18. Subjective Chief Complaint/HPI Pt is a 73 yo male with PMH of COPD, paroxysmal A. fib, DM, HTN , PR with CABG in 2010, CKD stage 3 with baseline creatinine 1.7 presented to [facility] ER with severe SOB and productive cough with yellow sputum. He was d/c from [facility] the day prior to admission with prenisone taper and 5 days of Levaquin; however his symptoms worsened when he got home . Denied fever, body aches, or chills. In ED he received IV Solu-medrol Events since last encounter Patient is examined at bedside. He states that he still have some non-productive cough. Denies fever, chill, chest pain, palpitation, lightheadedness, dizziness, sore throat, nausea, vomiting, or abdominal pain. He reports that he does have some SOB but that has been chronic. Constitutional: Reports: Weakness (Generalized weakness); Denies: Fever ENT: Reports: Other Symptoms (Hard of hearing); Denies: Head Aches, Sore Throat Pulmonary: Reports: Dyspnea, Cough; Denies: Pleuritic Chest Pain Cardiovascular: Denies: Chest Pain, Palpitations Gastrointestinal: Denies: Nausea, Vomiting, Abdominal Pain Objective Physical Examination General Exam: Positive: Alert, Cooperative, No Acute Distress ENT Exam: Positive: Mucous membr. moist/pink Chest Exam: Positive: Rhonchi (diffuse rhonchi and wheezing, BS diminished, improved c/w yesterday), Wheezing (prolonged expiratory phase with coarse wheezes); Negative: Clear to auscultation, Normal air movement Heart Exam: Positive: Rate Normal, Normal S1, Normal S2 Abdomen Exam: Positive: Normal bowel sounds, Soft; Negative: Tenderness Extremity Exam: Positive: Edema (trace BLE, improved c/w Tues.) Neuro Exam: Positive: Normal Speech Psych Exam: Positive: Mood NL Assessment /Plan Problems (1) Hospital acquired PNA Status: Acute Response to Treatment: Stable Discussed With: Nurse, Patient Problem Specific Plan: Monitor Clinically, Repeat Labs Problem Text: 12/06 CXR 12/01 showed right upper and lower lobe infiltrate. On Zosyn day 6. S/p 4 days Vanco; d/c as MRSA neg. Continue Mucinex. Vital signs, resp treatment, and oxy therapy. Respiratory panel and CRP ordered. 12/05: ABX day 5. (2) Influenza A Status: Acute Response to Treatment: Stable Problem Specific Plan: Monitor Clinically, Repeat Labs Problem Text: On Mucinex. Vital signs as scheduled. Tamiflu d/c as completed 5 days(10 doses) of Tamiflu (3) Chronic respiratory failure with hypoxia Status: Chronic Response to Treatment: Stable Problem Specific Plan: Monitor Clinically, Repeat Labs Problem Text: Reports baseline SOB. Vital signs as scheduled. Continue r espiratory treatment and oxygen therapy (4) COPD exacerbation Status: Acute Response to Treatment: Stable, Controlled Problem Specific Plan: Monitor Clinically Problem Text: Likely 2/2 influenza vs PNA. Pt states SOB is about baseline. Cough is now non-productive. Titrate IV solumedrol from 40mg Q8h to Q12h. Continue vital signs, respiratory treatment, and oxygen therapy as scheduled (5) Diastolic CHF, chronic Status: Chronic Response to Treatment: Stable, Compensated Problem Specific Plan: Monitor Clinically Problem Text: 12/06: BNP value going down compared to prior. Pt reports only baseline SOB. No obvious fluid overload status observed. Continue PO Lasix 12/05: repeat proBNP tomorrow. 40mg IV lasix X1 today. proBNP was elevated earlier in admission, consider incr ease in po lasix as well. (6) DM2 (diabetes mellitus, type 2) Status: Chronic Problem Specific Plan: Monitor Clinically, Repeat Labs Problem Text: Blood glucose in the 400s last night. Insulin determir increased to 38 units. Sliding sclae insulin AC increased as determir is not given until night time. May change the sliding scale back tmrw. Glucoses up due to glucocorticoid use. (7) Atrial fibrillation Status: Chronic Response to Treatment: Stable Problem Specific Plan: Monitor Clinically Problem Text: Rate controlled wnl, cont with Eliquis Plan/VTE VTE Prophylaxis Ordered?: Yes (TEDS and SCD) Plan Diet: Continue Current Activity: Continue Current Therapy: PT, OT Diagnostics: Check Labs, Repeat Labs in AM Anticipated Discharge: Sub Acute Rehab Disposition IV solumedrol titrate down to 40mg IV Q12h. D/C Tamiflu as 5 days completed. Resp panel and CRP ordered. VS, I&O, 24H, Fishbone Vital Signs/I&O Vital Signs Date Time Temp Pulse Resp B/P (MAP) Pulse Ox O2 Delivery O2 Flow Rate FiO2 12/06/18 08:34 142/75 12/06/18 08:34 81 12/06/18 06:00 97.3 20 98 Nasal Cannula 2.0 I&O- Last 24 Hours up to 6 AM 12/06/18 06:00 Intake Total 1680 ml Output Total 2325 ml Balance -645 ml Laboratory Data 24H LABS Laboratory Tests 2 12/05/18 11:40: Bedside Glucose (Misc Panel) 394H 12/05/18 16:58: Bedside Glucose (Misc Panel) 292H 12/05/18 21:04: Bedside Glucose (Misc Panel) 339H 12/06/18 05:42: Nucleated Red Blood Cells % (auto) 0.0, Anion Gap 6L, Glomerular Filtration Rate 43.2, Blood Urea Nitrogen 70H, Creatinine 1.66H, Sodium Level 136, Potassium Level 4.8, Chloride Level 99, Carbon Dioxide Level 31, Calcium Level 8.1L, Magnesium Level 2.4, C-Reactive Protein, Quantitative 1.08H, BX-Uhp-[id number]-Type Natriuretic Peptide 1372H CBC/BMP Laboratory Tests 12/06/18 05:42 Red Blood Count 3.42 L, Mean Corpuscular Volume 86.8, Mean Corpuscular Hemoglobi n 28.1, Mean Corpuscular Hemoglobin Concent 32.3, Red Cell Distribution Width 16.5 H, Calcium Level 8.1 L Microbiology Microbiology 12/01/18 Blood Culture - Final, Complete Enterococcus Faecalis 12/01/18 Blood Culture - Final, Complete Enterococcus Faecalis 12/01/18 MRSA Screen - Final, Complete BRANDON ARORA DO Dec 06, 2018 08:47
[2018-12-06] MEDS: IPRATROPIUM 0.5MG/ALBUTEROL 2.5MG INH SOL UD 3ML (DUONEB)(J7620) NEB PRN (08:55)
[2018-12-06 14:00] VITALS: BP 102/51
[2018-12-06] MEDS: ALPRAZolam 0.25 MG TAB PO PRN (20:35)
[2018-12-06] MEDS: ACETAMINOPHEN TAB 650MG DOSE (2X325MG) PO PRN (20:35)
[2018-12-06] MEDS: traZODone 100 MG TAB PO SCH (20:36)
[2018-12-06] MEDS: TAMSULOSIN 0.4 MG CAP PO SCH (20:36)
[2018-12-06] MEDS: ROSUVASTATIN 10 MG TAB (CRESTOR) PO SCH (20:36)
[2018-12-06] MEDS: LEVEMIR (INSULIN DETEMIR) 1 UNITS/0.01ML SC SCH (20:37)
[2018-12-06] MEDS: LATANOPROST 0.005% OPHTH SOLN 2.5 ML OU SCH (20:37)
[2018-12-06] MEDS: LIDOCAINE 5% (LIDODERM) PATCH TOP SCH (20:38)
[2018-12-06 22:00] VITALS: BP 138/64
[2018-12-07 06:00] VITALS: BP 139/67
[2018-12-07] MEDS: PIPERACILLIN/TAZOBACTAM SOD 2.25 GM in D5W MINI-BAG PLUS 50 ML IV SCH ×3 (06:02→21:57)
[2018-12-07 06:26] LABS: HEMATOCRIT 31.7 % (42.0-52.0); HEMOGLOBIN 10.1 g/dl (13.5-17.5); MEAN CORPUSCULAR HEMOGLOBIN 27.8 pg (27.0-33.0); MEAN CORPUSCULAR HGB CONC 31.9 g/dl (32.0-36.5); MEAN CORPUSCULAR VOLUME 87.3 fl (80.0-96.0); PLATELET COUNT, AUTOMATED 237 10^3/uL (150-450); RED BLOOD COUNT 3.63 10^6/uL (4.30-6.10); WHITE BLOOD COUNT 18.7 10^3/uL (4.0-10.0)
[2018-12-07 06:47] LABS: CREATININE FOR GFR 1.69 MG/DL (0.70-1.30); GLOMERULAR FILTRATION RATE 42.3 (>42)
[2018-12-07] MEDS: LISINOPRIL 10 MG TAB PO SCH ×2 (08:13→21:55)
[2018-12-07] MEDS: BISOPROLOL FUMARATE 5 MG TAB PO SCH (08:13)
[2018-12-07] MEDS: FINASTERIDE 5 MG TAB PO SCH (08:13)
[2018-12-07] MEDS: FUROSEMIDE 80 MG TAB PO SCH (08:14)
[2018-12-07] MEDS: ASPIRIN 81 MG ENTERIC TAB PO SCH (08:14)
[2018-12-07] MEDS: OMEPRAZOLE 20 MG CAP PO SCH (08:14)
[2018-12-07] MEDS: FENOFIBRATE 145 MG TAB (TRICOR) PO SCH (08:14)
[2018-12-07] MEDS: DOCUSATE SODIUM 100 MG CAP PO SCH (08:14)
[2018-12-07] MEDS: methylPREDNISolone INJ 40 MG/1 ML VIAL (J2920) IV SCH (08:14)
[2018-12-07] MEDS: SERTRALINE HCL 50 MG TAB PO SCH (08:14)
[2018-12-07] MEDS: APIXABAN 5 MG TAB (ELIQUIS) PO SCH ×2 (08:14→21:54)
[2018-12-07 08:15] LABS: C REACTIVE PROTEIN QUANTITATIV 0.67 MG/DL (0.00-0.30)
[2018-12-07] MEDS: HumaLOG INSULIN (NovoLOG) PER UNIT SC SCH ×4 (08:15→21:55)
[2018-12-07] MEDS: FERROUS SULFATE 325MG TAB PO SCH (08:15)
[2018-12-07] MEDS: **NOTE PATIENT COMMENT** MISC XX SCH (09:00)
--- NOTE | 2018-12-07 10:31 | IPNPDOC ---
Subjective Date Seen The patient was seen on 12/07/18. Subjective Chief Complaint/HPI Patient reports that he is not feeling well. Described that he has lots of bruises on his arms bilaterally, but denies falling/trauma/pressure. He reports that his coughing is getting worse, but the cough is still non-productive. He denied constipation or diarrhea during examination yesterday. Today he admits having 2-3 diarrhea for the past few days, stating it's black color stool but denies melenochezia. Denies fever, chills, SOB, chest pain, or abdominal pain. He reports generalized weakness General: Denies: Chills Constitutional: Reports: Weakness; Denies: Chills, Fever Pulmonary: Reports: Cough; Denies: Dyspnea, Pleuritic Chest Pain Cardiovascular: Denies: Chest Pain, Palpitations Gastrointestinal: Reports: Diarrhea, Melena; Denies: Nausea, Vomiting, Abdominal Pain, Constipation, Hematochezia Objective Physical Examination General Exam: Positive: Alert, Mild Distress Eye Exam: Negative: Sclera icteric ENT Exam: Positive: Mucous membr. moist/pink Chest Exam: Positive: Rhonchi (diffuse rhonchi and wheezing, BS diminished), Wheezing (prolonged expiratory phase with coarse wheezes); Negative: Clear to auscultation, Normal air movement Heart Exam: Positive: Rate Normal, Regular Rhythm, Normal S1, Normal S2 Abdomen Exam: Positive: Normal bowel sounds, Soft; Negative: Tenderness Extremity Exam: Positive: Edema (trace BLE) Skin Exam: Positive: Other skin issue (Multiple ecchymosis on bilateral upper extremities noted) Neuro Exam: Positive: Normal Speech Psych Exam: Positive: Anxiety Assessment /Plan Assessment Agree. Patient reports overall feeling poorly. Will further pulmonary imaging ordered, will try to restart on home COPD medications. Problems (1) Bacteremia Response to Treatment: Stable Problem Text: Bacteremia with blood cx pos for enterococcus faecalis X2. Pt denies any abdominal pain or abnormal colonoscopy results. Did not fit SIRS criteria. Continue Zosyn day 6. 2 new sets of blood cx pending. Will f/u with CRP (2) Hospital acquired PNA Status: Acute Response to Treatment: Stable Discussed With: Nurse, Patient Problem Specific Plan: Monitor Clinically, Repeat Labs Problem Text: 12/07 CXR 12/01 showed right upper and lower lobe infiltrate. Non- productive cough. On Zosyn day 7. S/p 4 days Vanco; d/c as MRSA neg. Continue Mucinex. Vital signs, resp treatment, and oxy therapy. Respiratory panel neg. Continue to f/u with CRP, continue to monitor the pt (3) Influenza A Status: Acute Response to Treatment: Stable Problem Specific Plan: Monitor Clinically, Repeat Labs Problem Text: On Mucinex. Vital signs as scheduled. Tamiflu d/c as completed 5 days(10 doses) of Tamiflu (4) Chronic respiratory failure with hypoxia Status: Chronic Response to Treatment: Stable Problem Specific Plan: Monitor Clinically, Repeat Labs Problem Text: Reports baseline SOB. Vital signs as scheduled. Continue respiratory treatment and oxygen therapy (5) COPD exacerbation Status: Acute Response to Treatment: Stable, Controlled Problem Specific Plan: Monitor Clinically Problem Text: Likely 2/2 influenza vs PNA. Pt states SOB is about baseline. Non-productive cough. Titrate IV solumedrol to PO prednisone 20mg Q12h. Continue vital signs, respiratory treatment, and oxygen therapy as scheduled (6) Diastolic CHF, chronic Status: Chronic Response to Treatment: Stable, Compensated Problem Specific Plan: Monitor Clinically Problem Text: 12/06: BNP value going down compared to prior. Pt reports only baseline SOB. 2+ bilateral pitting edema noted. Continue current dose PO lasix. Home dose Lasix 40mg QD. Fluid restriction to 1.8L/24h ordered. Continue to mo nitor 12/05: repeat proBNP tomorrow. 40mg IV lasix X1 today. proBNP was elevated earlier in admission, consider increase in po lasix as well. (7) DM2 (diabetes mellitus, type 2) Status: Chronic Problem Specific Plan: Monitor Clinically, Repeat Labs Problem Text: Blood glucose 261 last night. Insulin determir increased to 38 units 12/07. Sliding sclae insulin AC adjusted; will adjust insulin determir tomorrow based on total short acting insulin given 12/07. Glucoses up due to glucocorticoid use. (8) Atrial fibrillation Status: Chronic Response to Treatment: Stable Problem Specific Plan: Monitor Clinically Problem Text: Rate controlled wnl, cont with Eliquis (9) Diarrhea Problem Text: Pt reports today having diarrhea for the past few days. D/C C olace. Start probiotics. Patient reported black melena stool but nursing documented brown colored stool. Hemoglobin stable 10.1 compared to 9.6 last night. Colonoscopy April 2017 showed adenamtous polyp/tubular polpys s/p polypectomy. Pt reports that he was told that no further colonoscopy was needed. Pt's hg baseline about 10.5 to 11.5 since 2002. Continue to f/u with CBC and monitor (10) Depression Status: Chronic Problem Text: PMH of depression/anxiety. Continue home med Sertraline 50mg QD and Alprazolam PRN Plan/VTE VTE Prophylaxis Ordered?: Yes (TEDS and SCD) Plan Diet: Continue Current Activity: Continue Current Therapy: PT, OT Diagnostics: Check Labs, Repeat Labs in AM Anticipated Discharge: Sub Acute Rehab Disposition IV solu-medrol changed to PO prednisone. 2+ pitting edema. Pt reports diarrhea, colace D/C; start probiotics VS, I&O, 24H, Fishbone Vital Signs/I&O Vital Signs Date Time Temp Pulse Resp B/P (MAP) Pulse Ox O2 Delivery O2 Flow Rate FiO2 12/07/18 08:13 139/67 12/07/18 08:13 70 12/07/18 08:00 2.0 12/07/18 06:00 97.4 19 98 Nasal Cannula I&O- Last 24 Hours up to 6 AM 12/07/18 06:00 Intake Total 3198 ml Output Total 1700 ml Balance 1498 ml Laboratory Data 24H LABS Laboratory Tests 2 12/06/18 11:55: Bedside Glucose (Misc Panel) 177H 12/06/18 16:45: Bedside Glucose (Misc Panel) 400H 12/06/18 20:14: Bedside Glucose (Misc Panel) 261H 12/07/18 05:59: Nucleated Red Blood Cells % (auto) 0.0, Anion Gap 7L, Glomerular Filtration Rate 42.3, Blood Urea Nitrogen 80H, Creatinine 1.69H, Sodium Level 135L, Potassium Level 5.0, Chloride Level 98, Carbon Dioxide Level 30, Calcium Level 8.0L, C- Reactive Protein, Quantitative 0.67H CBC/BMP Laboratory Tests 12/07/18 05:59 Red Blood Count 3.63 L, Mean Corpuscular Volume 87.3, Mean Corpuscular Hemoglo bin 27.8, Mean Corpuscular Hemoglobin Concent 31.9 L, Red Cell Distribution Width 16.7 H, Calcium Level 8.0 L Microbiology Microbiology 12/06/18 Blood Culture, Received Pending 12/06/18 Blood Culture, Received Pending 12/01/18 Blood Culture - Final, Complete Enterococcus Faecalis 12/01/18 Blood Culture - Final, Complete Enterococcus Faecalis 12/06/18 Respiratory Virus Panel (PCR) ([facility]) - Final, Complete 12/01/18 MRSA Screen - Final, Complete BRANDON ARORA DO Dec 07, 2018 10:31 EZIO ROJAS DO Dec 07, 2018 19:26
[2018-12-07] MEDS: LACTOBACILLUS ACIDOPHILUS CAP (BACID) PO SCH (12:21)
[2018-12-07] MEDS: IPRATROPIUM 0.5MG/ALBUTEROL 2.5MG INH SOL UD 3ML (DUONEB)(J7620) NEB PRN ×2 (12:31→16:59)
[2018-12-07] MEDS: ALPRAZolam 0.25 MG TAB PO PRN (13:43)
[2018-12-07 14:00] VITALS: BP 106/54
--- NOTE | 2018-12-07 14:39 | REP ---
Chest two views HISTORY: Pneumonia Comparison: 12/01/2018 A diffuse increase in interstitial markings is present in the lungs consistent with chronic interstitial fibrosis. Patchy density is present in the right upper and lower lobes consistent with infiltrates that are decreased compared to the previous study. Linear densities are present in the left lower lobe consistent with scarring. The heart is normal in size. The pulmonary vasculature is normal in appearance. The bony structure is intact. IMPRESSION: 1. Chronic interstitial fibrosis. 2. Right upper and lower lobe infiltrates decreased compared to the previous study. Electronically Signed by Obi Blunt MD 12/07/2018 02:31 P
--- NOTE | 2018-12-07 19:12 | ECHO ---
DATE OF PROCEDURE: 12/07/2018 REFERRING PHYSICIAN: Dr. Kaitlin Zarate INDICATIONS: Sepsis. Height 168 cm, weight 75 kg. DIMENSIONS: IVS: 1.2 LV: 4.5 LVPW: 1.2 LA: 3.9 Aorta: 3.6 IVC: 1.6 Mitral E wave velocity: 114 E prime septal: 5.8 E prime lateral: 8.6. Left atrial volume index: 42 mL per meter square FINDINGS: The study is of good technical quality. The patient is in atrial fibrillation with controlled rate. Left ventricle is normal size and systolic function with estimated left ventricular ejection fraction (LVEF) 60-65%. Mild left ventricular hypertrophy is noted. Right ventricle appears normal. Left atrium is severely enlarged. Right atrium appears at least mildly enlarged. Aortic valve has three leaflets. It is sclerotic, and there is no significant restrictions of leaflet mobility. There are also degenerative abnormalities of mitral valve with minimal calcifications apparent in the chordal apparatus. Tricuspid valve appears normal. Pulmonic valve was not seen. No pericardial effusion is noted. Inferior vena cava is normal size. Aortic root is normal. Aortic arch and abdominal aorta were not visualized. Doppler interrogation reveals mild aortic insufficiency and mild aortic stenosis (mean gradient 9 mmHg). There is [id number] mitral insufficiency and mild tricuspid insufficiency. Calculated pulmonary artery pressure is in high 30s corresponding to mild pulmonary hypertension. Evaluation of diastolic function is inconclusive due to underlying irregular rhythm. FINDINGS: 1. Study is of good technical quality. 2. Normal left ventricular (LV) size with mild left ventricular hypertrophy (LVH) and preserved LV systolic function. 3. Mild aortic and tricuspid insufficiency, [id number]-[id number] mitral insufficiency. 4. Normal central venous pressure. 5. Suggestive of mild elevation of pulmonary artery pressure. 6. Severe left atrial enlargement. COMMENT: Subacute bacterial endocarditis (SBE) prophylaxis is not recommended.
[2018-12-07] MEDS: ADVAIR HFA 230/21MCG INHALER INH SCH (19:15)
[2018-12-07] MEDS: traZODone 100 MG TAB PO SCH (21:54)
[2018-12-07] MEDS: ROSUVASTATIN 10 MG TAB (CRESTOR) PO SCH (21:54)
[2018-12-07] MEDS: predniSONE 20 MG TAB PO SCH (21:54)
[2018-12-07] MEDS: LATANOPROST 0.005% OPHTH SOLN 2.5 ML OU SCH (21:55)
[2018-12-07] MEDS: LIDOCAINE 5% (LIDODERM) PATCH TOP SCH (21:55)
[2018-12-07] MEDS: LEVEMIR (INSULIN DETEMIR) 1 UNITS/0.01ML SC SCH (21:55)
[2018-12-07] MEDS: TAMSULOSIN 0.4 MG CAP PO SCH (21:55)
[2018-12-07 22:00] VITALS: BP 108/51
--- NOTE | 2018-12-08 01:07 | REPVR ---
EXAM: CT Chest Without Contrast EXAM DATE/TIME: 12/07/2018 6:57 PM CLINICAL HISTORY: 73 years old, male; Chest pain; Persistent dyspnea TECHNIQUE: Axial computed tomography images of the chest without intravenous contrast. All CT scans at this facility use at least one of these dose optimization techniques: automated exposure control; mA and/or kV adjustment per patient size (includes targeted exams where dose is matched to clinical indication); or iterative reconstruction. Coronal and sagittal reformatted images were created and reviewed. MIP reconstructed images were created and reviewed. COMPARISON: CT Chest without contrast 11/19/2018 5:53 AM FINDINGS: Thyroid: There is an 11 mm low-attenuation nodule in the right lobe of the thyroid gland, which is similar in appearance compared to the prior CT scan on 11/19/2018 and for which no followup is recommended. The thyroid gland was not fully imaged. Lungs: There is a 2.4 cm spiculated opacity in the right upper lobe (image 30 of the axial series 201), which has developed since the prior CT scan on 11/19/2018. Smaller patchy and nodular opacities are present in the right middle lobe, right lower lobe, left upper lobe, and left lower lobe (images 22-24, 32, 48-49, 59-65, 70-72, and 85-91), some of which are new compared to the prior chest CT on 11/19/2018. There are paraseptal and centrilobular emphysematous changes predominantly in the upper lobes. There is scarring in the right upper lobe, left upper lobe, and left lower lobe. Pleural space: Normal. No pneumothorax. No pleural effusion. Heart: No cardiomegaly or pericardial effusion is noted. There are coronary artery calcifications. There are surgical clips along the inferior aspect of the heart, mediastinum, and left hemidiaphragm. Mediastinum: No mediastinal mass, hemorrhage, or pneumomediastinum is noted. Aorta: There is no thoracic aortic aneurysm or intramural hematoma. There are dyvmrxuc-zp-mdybat atherosclerotic calcifications. Lymph nodes: Normal. No enlarged lymph nodes. Bones/joints: Median sternotomy suture wires are in place. The imaged bony structures are intact. There is no suspicious osteolytic or osteoblastic lesion. Incidental note is made of a 1 cm round sclerotic lesion in the T6 vertebral body, which is unchanged compared to the prior CT scan on 11/19/2018 and most compatible with a bone island. There are bridging paraspinal osteophytes at multiple contiguous levels in the thoracic spine, which is compatible with diffuse idiopathic skeletal hyperostosis. Soft tissues: Unremarkable. Liver: There are calcified granulomas in the liver. The contour of the liver is smooth. No hepatomegaly is noted. Gallbladder and bile ducts: No calcifications are seen in the gallbladder to suggest calculi. No gallbladder wall thickening, pericholecystic fluid, or pericholecystic inflammatory changes is identified. No dilation of the intrahepatic or extrahepatic bile ducts is noted. Pancreas: The imaged portion of the pancreas is unremarkable. The head of the pancreas was not imaged. No dilation of the main pancreatic duct is noted. Spleen: Unremarkable. No splenomegaly is noted. Adrenals: There is a 2 cm right adrenal nodule that measures -1 Hounsfield unit and is unchanged compared to the prior CT scan on 11/19/2018 and compatible with a benign adrenal adenoma. There is an additional 1.5 cm unchanged right adrenal nodule that measures 1 Hounsfield unit and is also compatible with a benign adrenal adenoma. The left adrenal gland is normal. Stomach and bowel: There is colonic diverticulosis involving the ascending colon, transverse colon, and descending colon. The bowel was not fully imaged. IMPRESSION: 1. Development of a 2.4 cm spiculated opacity in the right upper lobe since the prior chest CT on 11/19/2018 and smaller patchy and nodular opacities in the right middle lobe, right lower lobe, left upper lobe, and left lower lobe, which may be infectious, inflammatory, or neoplastic in nature. See management guidelines below. 2. Colonic diverticulosis. [employer] 2017 GUIDELINES FOR MANAGEMENT OF INCIDENTAL PULMONARY NODULES: Multiple solid nodules >8 mm: In a low risk patient, CT at 3-6 months, then consider CT at 18-24 months. Use most suspicious nodule as guide to management. Follow-up intervals may vary according to size and risk. In a high risk patient, CT at 3-6 months, then at 18-24 months. High Risk Patients as defined in the 2017 Fleischner Society Guidelines: ?History of heavy smoking ?Exposure to asbestos, radium, or uranium ?Family history of lung cancer ?Emphysema and pulmonary fibrosis (IPF in particular) ?Older age ?Sex (females at greater risk than men) ?Race (Blacks and at higher risk) ?Marginal spiculation / suspicious morphology ?Upper lobe location (also apex) ?Multiple nodules (2-5 nodules highest risk) ?Exceptions, such as technically suboptimal scanning Warner H, Antoni DP, Shanna YBARRA, et al. Guidelines for Management of Incidental Pulmonary Nodules Detected on CT images: From the Fle[employer]ner Society 2017. Radiology, May 2017;284(1):228-243. http://pubs.rsna.org/doi/pdf/[email or web address] Electronically signed by: Francisco Cho On 12/08/2018 01:07:01 AM
[2018-12-08] MEDS: PIPERACILLIN/TAZOBACTAM SOD 2.25 GM in D5W MINI-BAG PLUS 50 ML IV SCH ×2 (05:58→16:15)
[2018-12-08 06:00] VITALS: BP 116/57
[2018-12-08 06:16] LABS: HEMATOCRIT 29.9 % (42.0-52.0); HEMOGLOBIN 9.5 g/dl (13.5-17.5); MEAN CORPUSCULAR HEMOGLOBIN 28.1 pg (27.0-33.0); MEAN CORPUSCULAR HGB CONC 31.8 g/dl (32.0-36.5); MEAN CORPUSCULAR VOLUME 88.5 fl (80.0-96.0); PLATELET COUNT, AUTOMATED 210 10^3/uL (150-450); RED BLOOD COUNT 3.38 10^6/uL (4.30-6.10); WHITE BLOOD COUNT 15.5 10^3/uL (4.0-10.0)
[2018-12-08 06:42] LABS: C REACTIVE PROTEIN QUANTITATIV 0.47 MG/DL (0.00-0.30); CALCIUM LEVEL 7.8 MG/DL (8.8-10.2); CREATININE FOR GFR 1.89 MG/DL (0.70-1.30); GLOMERULAR FILTRATION RATE 37.2 (>42); POTASSIUM SERUM 5.1 MEQ/L (3.5-5.1)
[2018-12-08] MEDS: ADVAIR HFA 230/21MCG INHALER INH SCH ×2 (07:58→22:18)
[2018-12-08] MEDS: BISOPROLOL FUMARATE 5 MG TAB PO SCH (08:27)
[2018-12-08] MEDS: HumaLOG INSULIN (NovoLOG) PER UNIT SC SCH ×4 (08:27→21:00)
[2018-12-08] MEDS: FINASTERIDE 5 MG TAB PO SCH (08:28)
[2018-12-08] MEDS: FENOFIBRATE 145 MG TAB (TRICOR) PO SCH (08:28)
[2018-12-08] MEDS: ASPIRIN 81 MG ENTERIC TAB PO SCH (08:28)
[2018-12-08] MEDS: APIXABAN 5 MG TAB (ELIQUIS) PO SCH ×2 (08:28→21:46)
[2018-12-08] MEDS: predniSONE 20 MG TAB PO SCH ×2 (08:28→21:46)
[2018-12-08] MEDS: LISINOPRIL 10 MG TAB PO SCH ×2 (08:28→21:46)
[2018-12-08] MEDS: FERROUS SULFATE 325MG TAB PO SCH (08:28)
[2018-12-08] MEDS: SERTRALINE HCL 50 MG TAB PO SCH (08:28)
[2018-12-08] MEDS: OMEPRAZOLE 20 MG CAP PO SCH (08:28)
[2018-12-08] MEDS: LACTOBACILLUS ACIDOPHILUS CAP (BACID) PO SCH (08:28)
[2018-12-08] MEDS: FUROSEMIDE 80 MG TAB PO SCH (08:29)
[2018-12-08] MEDS: **NOTE PATIENT COMMENT** MISC XX SCH (08:31)
--- NOTE | 2018-12-08 08:44 | IPNPDOC ---
Subjective Date Seen The patient was seen on 12/08/18. Objective Physical Examination General Exam: Positive: Alert, Mild Distress Eye Exam: Negative: Sclera icteric ENT Exam: Positive: Mucous membr. moist/pink Chest Exam: Positive: Rhonchi (diffuse rhonchi and wheezing, BS diminished), Wheezing (prolonged expiratory phase with coarse wheezes); Negative: Clear to auscultation, Normal air movement Heart Exam: Positive: Rate Normal, Regular Rhythm, Normal S1, Normal S2 Abdomen Exam: Positive: Normal bowel sounds, Soft; Negative: Tenderness Extremity Exam: Positive: Edema (trace BLE) Skin Exam: Positive: Other skin issue (Multiple ecchymosis on bilateral upper extremities noted) Neuro Exam: Positive: Normal Speech Psych Exam: Positive: Anxiety Assessment /Plan Problems (1) Bacteremia Response to Treatment: Stable Problem Text: Bacteremia with blood cx pos for enterococcus faecalis X2. Pt denies any abdominal pain or abnormal colonoscopy results. Did not fit SIRS criteria. Continue Zosyn day 05/25. 2 new sets of blood cx [id number]; cont to f/u. CRP continue to trend down at 0.47 now. Will f/u with CRP (2) Hospital acquired PNA Status: Acute Response to Treatment: Stable Discussed With: Nurse, Patient Problem Specific Plan: Monitor Clinically, Repeat Labs Problem Text: 12/08 CXR from 12/07 showed decreased right upper and lower lobe infiltrate compared to before. On Zosyn day 8. CRP trending down. CXR 12/01 showed right upper and lower lobe infiltrate. Non-productive cough. S/p 4 days Vanco; d/c as MRSA neg. Continue Mucinex. Vital signs, resp treatment, and oxy therapy. Respiratory panel neg. Continue to f/u with CRP, continue to monitor the pt (3) Influenza A Status: Acute Response to Treatment: Stable Problem Specific Plan: Monitor Clinically, Repeat Labs Problem Text: On Mucinex. Vital signs as scheduled. Tamiflu d/c as completed 5 days(10 doses) of Tamiflu (4) Chronic respiratory failure with hypoxia Status: Chronic Response to Treatment: Stable Problem Specific Plan: Monitor Clinically, Repeat Labs Problem Text: Reports baseline SOB. Vital signs as scheduled. Continue respiratory treatment and oxygen therapy (5) COPD exacerbation Status: Acute Response to Treatment: Stable, Controlled Problem Specific Plan: Monitor Clinically Problem Text: Likely 2/2 influenza vs PNA. Pt states SOB is about baseline. Non-productive cough. Continue PO prednisone 20mg Q12h. Continue vital signs, respiratory treatment, and oxygen therapy as scheduled (6) Diastolic CHF, chronic Status: Chronic Response to Treatment: Stable, Compensated Problem Specific Plan: Monitor Clinically Problem Text: 12/07. Fluid restriction to 2.5L/24h as creatinine trending up although does not fit TONE criteria.Echo 12/07 showed severe left atrial enlargement, mild elevation of pulmonary artery pressure, and mild left ventricular hypertrophy. Although diastolic function inconclusive on echo, considering pt has cardiomegaly, ankle edema, and noctural cough, fitting Fraginham's criteria for CHF. Preserved EF thus diastolic CHF 12/06: BNP value going down compared to prior. Pt reports only baseline SOB. 2+ bilateral pitting edema noted. Continue current dose PO lasix. Home dose Lasix 40mg QD. Fluid restriction to 1.8L/24h ordered. Continue to monitor 12/05: repeat proBNP tomorrow. 40mg IV lasix X1 today. proBNP was elevated earlier in admission, consider increase in po lasix as well. (7) DM2 (diabetes mellitus, type 2) Status: Chronic Problem Specific Plan: Monitor Clinically, Repeat Labs Problem Text: Blood glucose 211 last night compared to 261 the night prior. Insulin determir increased to 38 units 12/07, continue at current dose as pt may have gluconeogenesis 2/2 steroid use; will continue to monitor. Sliding sclae insulin AC adjusted 12/07 (8) Atrial fibrillation Status: Chronic Response to Treatment: Stable Problem Specific Plan: Monitor Clinically Problem Text: Rate controlled wnl, cont with Eliquis (9) Diarrhea Status: Acute Problem Text: Pt reports today having diarrhea for the past few days. D/C Colace. Start probiotics. Patient reported black melena stool but nursing documented brown colored stool. Hemoglobin stable 10.1 compared to 9.6 last night. Colonoscopy April 2017 showed adenamtous polyp/tubular polpys s/p polypectomy. Pt reports that he was told that no further colonoscopy was needed. Pt's hg baseline about 10.5 to 11.5 since 2002. Continue to f/u with CBC and monitor (10) Depression Status: Chronic Problem Text: PMH of depression/anxiety. Continue home med Sertraline 50mg QD and Alprazolam PRN Plan/VTE VTE Prophylaxis Ordered?: Yes (TEDS and SCD) Plan Diet: Continue Current Activity: Continue Current Therapy: PT, OT Diagnostics: Check Labs, Repeat Labs in AM Anticipated Discharge: Sub Acute Rehab VS, I&O, 24H, Fishbone Vital Signs/I&O Vital Signs Date Time Temp Pulse Resp B/P (MAP) Pulse Ox O2 Delivery O2 Flow Rate FiO2 12/08/18 06:00 98.1 58 15 116/57 (76) 97 Nasal Cannula 2.0 I&O- Last 24 Hours up to 6 AM 12/08/18 06:00 Intake Total 2440 ml Output Total 3500 ml Balance -1060 ml Laboratory Data 24H LABS Laboratory Tests 2 12/08/18 05:32: Nucleated Red Blood Cells % (auto) 0.0, Anion Gap 7L, Glomerular Filtration Rate 37.2L, Blood Urea Nitrogen 83H, Creatinine 1.89H, Sodium Level 135L, Potassium Level 5.1, Chloride Level 100, Carbon Dioxide Level 28, Calcium Level 7.8L, C- Reactive Protein, Quantitative 0.47H CBC/BMP Laboratory Tests 12/08/18 05:32 Red Blood Count 3.38 L, Mean Corpuscular Volume 88.5, Mean Corpuscular Hemoglobin 28.1, Mean Corpuscular Hemoglobin Concent 31.8 L, Red Cell Dis tribution Width 16.7 H, Calcium Level 7.8 L Microbiology Microbiology 12/06/18 Blood Culture - Preliminary, Resulted No growth after 24 hours . All specim... 12/06/18 Blood Culture - Preliminary, Resulted No growth after 24 hours . All specim... 12/01/18 Blood Culture - Final, Complete Enterococcus Faecalis 12/01/18 Blood Culture - Final, Complete Enterococcus Faecalis 12/06/18 Respiratory Virus Panel (PCR) ([facility]) - Final, Complete 12/01/18 MRSA Screen - Final, Complete BRANDON ARORA DO Dec 08, 2018 08:44
--- NOTE | 2018-12-08 10:48 | IPNPDOC ---
Subjective Date Seen The patient was seen on 12/08/18. Subjective Chief Complaint/HPI Patient is examined at bedside. He states that he is feeling better. Still has non-productive cough but denies SOB. He states that cough is worse at night. Stated that he slept well at night; uses 3 pillows to sleep but that is his baseline at home. Stated diarrhea had resolved. Denies fever, chills, nausea, vomiting, or abdominal pain General: Denies: Chills, Night Sweats Constitutional: Denies: Chills, Fever, Night Sweats Pulmonary: Reports: Cough; Denies: Dyspnea Cardiovascular: Reports: Edema; Denies: Chest Pain Gastrointestinal: Denies: Nausea, Vomiting, Abdominal Pain, Diarrhea Objective Physical Examination General Exam: Positive: Alert, No Acute Distress Eye Exam: Negative: Sclera icteric ENT Exam: Positive: Mucous membr. moist/pink Chest Exam: Positive: Rhonchi (diffuse rhonchi and wheezing), Wheezing (prolonged expiratory phase with coarse wheezes); Negative: Clear to auscultation, Normal air movement Heart Exam: Positive: Rate Normal, Regular Rhythm, Normal S1, Normal S2 Abdomen Exam: Positive: Normal bowel sounds, Soft; Negative: Tenderness Extremity Exam: Positive: Edema (trace BLE) Skin Exam: Positive: Other skin issue (Multiple ecchymosis on bilateral upper extremities noted) Neuro Exam: Positive: Normal Speech Psych Exam: Positive: Mood NL Assessment /Plan Problems (1) Bacteremia Response to Treatment: Stable Problem Text: Bacteremia with blood cx pos for enterococcus faecalis X2. Pt denies any abdominal pain or abnormal colonoscopy results. Did not fit SIRS criteria. Continue Zosyn day 05/25. 2 new sets of blood cx [id number]; cont to f/u. CRP continue to trend down at 0.47 now. Will f/u with CRP (2) Hospital acquired PNA Status: Acute Response to Treatment: Stable Discussed With: Nurse, Patient Problem Specific Plan: Monitor Clinically, Repeat Labs Problem Text: 12/08 CXR from 12/07 showed decreased right upper and lower lobe infiltrate compared to before. On Zosyn day 8. CRP trending down Chest CT 12/07 showed development of 2.4 cm spiculated opacity inright upper lobe compared to 11/19/2018. Smaller patchy and nodular opacities in the right middle lobe, right lower lobe, left upper lobe, and left lower lobe, also noted. Questionable 2/2 infection vs inflammatory process. Discussed with Dr. Ramsay and she will take the consult. We appreciate for pulmonology team's help. CXR 12/01 showed right upper and lower lobe infiltrate. Non-productive cough. S/p 4 days Vanco; d/c as MRSA neg. Continue Mucinex. Vital signs, resp treatment, and oxy therapy. Respiratory panel neg. Continue to f/u with CRP, continue to monitor the pt. (3) Influenza A Status: Acute Response to Treatment: Stable Problem Specific Plan: Monitor Clinically, Repeat Labs Problem Text: On Mucinex. Vital signs as scheduled. Tamiflu d/c as completed 5 days(10 doses) of Tamiflu (4) Chronic respiratory failure with hypoxia Status: Chronic Response to Treatment: Stable Problem Specific Plan: Monitor Clinically, Repeat Labs Problem Text: Reports baseline SOB. Vital signs as scheduled. Continue respiratory treatment and oxygen therapy. Pulmonology team consulted and we appreciate their input. (5) COPD exacerbation Status: Acute Response to Treatment: Stable, Controlled Problem Specific Plan: Monitor Clinically Problem Text: Likely 2/2 influenza vs PNA. Pt states SOB is about baseline. Non -productive cough. Continue PO prednisone 20mg Q12h. Continue vital signs, respiratory treatment, and oxygen therapy as scheduled. Pulmonology team consulted and we appreciate their input. (6) Diastolic CHF, chronic Status: Chronic Response to Treatment: Stable, Compensated Problem Specific Plan: Monitor Clinically Problem Text: 12/07. Fluid restriction to 2.5L/24h as creatinine trending up although does not fit TONE criteria.Echo 12/07 showed severe left atrial enlargement, mild elevation of pulmonary artery pressure, and mild left ventricular hypertrophy. Although diastolic function inconclusive on echo, considering pt has cardiomegaly, ankle edema, and noctural cough, fitting Fr aginham's criteria for CHF. Preserved EF thus diastolic CHF 12/06: BNP value going down compared to prior. Pt reports only baseline SOB. 2+ bilateral pitting edema noted. Continue current dose PO lasix. Home dose Lasix 40mg QD. Fluid restriction to 1.8L/24h ordered. Continue to monitor 12/05: repeat proBNP tomorrow. 40mg IV lasix X1 today. proBNP was elevated earlier in admission, consider increase in po lasix as well. (7) DM2 (diabetes mellitus, type 2) Status: Chronic Problem Specific Plan: Monitor Clinically, Repeat Labs Problem Text: Blood glucose 211 last night compared to 261 the night prior. Insulin determir increased to 38 units 12/07, continue at current dose as pt may have gluconeogenesis 2/2 steroid use; will continue to monitor. Sliding sclae insulin AC adjusted 12/07 (8) Atrial fibrillation Status: Chronic Response to Treatment: Stable Problem Specific Plan: Monitor Clinically Problem Text: Rate controlled wnl, cont with Eliquis (9) Diarrhea Status: Acute Response to Treatment: Improving Problem Text: Reports stool are formed now. Continue probiotics. Continue to f/u with CBC. 12/07 D/C Colace. Start probiotics. Patient reported black melena stool but nursing documented brown colored stool. Hemoglobin stable 10.1 compared to 9.6 last night. Colonoscopy April 2017 showed adenamtous polyp/tubular polpys s/p polypectomy. Pt reports that he was told that no further colonoscopy was needed. CT chest visualized diverticulosis. Pt's hg baseline about 10.5 to 11.5 since 2002. Continue to f/u with CBC and monitor (10) Depression Status: Chronic Problem Text: PMH of depression/anxiety. Continue home med Sertraline 50mg QD and Alprazolam PRN Plan/VTE VTE Prophylaxis Ordered?: Yes (TEDS and SCD) Plan Diet: Continue Current Activity: Continue Current Therapy: PT, OT Diagnostics: Check Labs, Repeat Labs in AM Anticipated Discharge: Sub Acute Rehab Disposition Development of 2.4cm lung spiculated nodular opacity. Pul consulted. Echo showed severe LA enlargement with mild left ventricle hypertrophy VS, I&O, 24H, Fishbone Vital Signs/I&O Vital Signs Date Time Temp Pulse Resp B/P (MAP) Pulse Ox O2 Delivery O2 Flow Rate FiO2 12/08/18 08:27 58 116/57 12/08/18 08:00 2.0 12/08/18 06:00 98.1 15 97 Nasal Cannula I&O- Last 24 Hours up to 6 AM 12/08/18 06:00 Intake Total 2440 ml Output Total 3500 ml Balance -1060 ml Laboratory Data 24H LABS Laboratory Tests 2 12/07/18 11:33: Bedside Glucose (Misc Panel) 163H 12/07/18 16:32: Bedside Glucose (Misc Panel) 299H 12/07/18 21:16: Bedside Glucose (Misc Panel) 211H 12/08/18 05:32: Nucleated Red Blood Cells % (auto) 0.0, Anion Gap 7L, Glomerular Filtration Rate 37.2L, Blood Urea Nitrogen 83H, Creatinine 1.89H, Sodium Level 135L, Potassium Level 5.1, Chloride Level 100, Carbon Dioxide Level 28, Calcium Level 7.8L, C- Reactive Protein, Quantitative 0.47H 12/08/18 08:50: Bedside Glucose (Misc Panel) 220H CBC/BMP Laboratory Tests 12/08/18 05:32 Red Blood Count 3.38 L, Mean Corpuscular Volume 88.5, Mean Corpuscular Hemoglobin 28.1, Mean Corpuscular Hemoglobin Concent 31.8 L, Red Cell Distribution Width 16.7 H, Calcium Level 7.8 L Microbiology Microbiology 12/06/18 Blood Culture - Preliminary, Resulted No growth after 24 hours . All specim... 12/06/18 Blood Culture - Preliminary, Resulted No growth after 24 hours . All specim... 12/01/18 Blood Culture - Final, Complete Enterococcus Faecalis 12/01/18 Blood Culture - Final, Complete Enterococcus Faecalis 12/08/18 Clostridium difficile (PCR), Received Pending 12/06/18 Respiratory Virus Panel (PCR) ([facility]) - Final, Complete 12/01/18 MRSA Screen - Final, Complete BRANDON ARORA DO Dec 08, 2018 10:48
[2018-12-08] MEDS: IPRATROPIUM 0.5MG/ALBUTEROL 2.5MG INH SOL UD 3ML (DUONEB)(J7620) NEB PRN (11:27)
[2018-12-08] MEDS: ALPRAZolam 0.25 MG TAB PO PRN ×2 (13:26→22:01)
[2018-12-08 14:00] VITALS: BP 111/62
[2018-12-08] MEDS: VANCOMYCIN ORAL SOL 250MG/5ML ORAL SYRINGE PO SCH (18:59)
[2018-12-08] MEDS: LIDOCAINE 5% (LIDODERM) PATCH TOP SCH (21:00)
[2018-12-08] MEDS: ROSUVASTATIN 10 MG TAB (CRESTOR) PO SCH (21:46)
[2018-12-08] MEDS: traZODone 100 MG TAB PO SCH (21:46)
[2018-12-08] MEDS: LEVEMIR (INSULIN DETEMIR) 1 UNITS/0.01ML SC SCH (21:46)
[2018-12-08] MEDS: LATANOPROST 0.005% OPHTH SOLN 2.5 ML OU SCH (21:47)
[2018-12-08] MEDS: TAMSULOSIN 0.4 MG CAP PO SCH (21:47)
[2018-12-08 22:00] VITALS: BP 122/83
[2018-12-08] MEDS: ACETAMINOPHEN TAB 650MG DOSE (2X325MG) PO PRN (22:01)
[2018-12-09] MEDS: VANCOMYCIN ORAL SOL 250MG/5ML ORAL SYRINGE PO SCH ×3 (01:03→17:43)
[2018-12-09 06:00] VITALS: BP 124/59
[2018-12-09 06:43] LABS: HEMATOCRIT 28.6 % (42.0-52.0); HEMOGLOBIN 9.1 g/dl (13.5-17.5); MEAN CORPUSCULAR HEMOGLOBIN 28.2 pg (27.0-33.0); MEAN CORPUSCULAR HGB CONC 31.8 g/dl (32.0-36.5); MEAN CORPUSCULAR VOLUME 88.5 fl (80.0-96.0); PLATELET COUNT, AUTOMATED 194 10^3/uL (150-450); RED BLOOD COUNT 3.23 10^6/uL (4.30-6.10); WHITE BLOOD COUNT 12.1 10^3/uL (4.0-10.0)
[2018-12-09 07:01] LABS: BLOOD UREA NITROGEN 88 MG/DL (7-18); C REACTIVE PROTEIN QUANTITATIV < 0.30 MG/DL (0.00-0.30); CALCIUM LEVEL 7.5 MG/DL (8.8-10.2); CARBON DIOXIDE LEVEL 27 MEQ/L (21-32); CHLORIDE LEVEL 102 MEQ/L (98-107); CREATININE FOR GFR 1.79 MG/DL (0.70-1.30); GLOMERULAR FILTRATION RATE 39.6 (>42); GLUCOSE, FASTING 389 MG/DL (70-100); POTASSIUM SERUM 5.3 MEQ/L (3.5-5.1); SODIUM LEVEL 136 MEQ/L (136-145)
[2018-12-09] MEDS: ADVAIR HFA 230/21MCG INHALER INH SCH ×2 (08:15→20:29)
[2018-12-09] MEDS: **NOTE PATIENT COMMENT** MISC XX SCH (09:00)
--- NOTE | 2018-12-09 09:02 | REP ---
CT ABDOMEN WITHOUT IV OR ORAL CONTRAST: HISTORY: Diverticulosis with bacteremia. Question source of infection. No comparison abdomen CT. CT FINDINGS: Preliminary digital bundle wrapper radiograph demonstrates prominent vascular calcification, surgical clips in the lower chest and in both inguinal regions, and a normal bowel gas pattern. The lung bases show evidence of COPD with pleuroparenchymal scarring and emphysematous changes. No pleural effusion is seen. There are granulomatous calcifications in the liver. The liver and spleen are normal in size and otherwise homogeneous. No abnormalities seen in the gallbladder. No pancreatic mass or cyst is observed. There is a low-density nodule in the right adrenal gland consistent with an adenoma. This has a mean Hounsfield unit density of -9 Hounsfield units. It measures 2 cm in greatest diameter. It is unchanged from prior chest CT images dating back to October 20, 2006. Left adrenal gland is normal. No retroperitoneal mass or adenopathy is seen. There is extensive vascular calcification. No retroperitoneal mass or adenopathy is seen. There is left colonic diverticulosis without CT evidence of diverticulitis. Diverticulosis is seen in the mid transverse colon and is most extensive in the sigmoid colon. No pericolonic inflammation or abscess is seen. There are multiple bladder diverticula and the bladder abdi are slightly thickened. Prostate and seminal vesicles are morphologically unremarkable. No abdominal wall defect is seen. Bone window settings show no significant bony abnormality. Normal appendix is visible in the right lower quadrant. IMPRESSION: Left colonic diverticulosis without evidence of diverticulitis. Stable benign right adrenal adenoma. Extensive vascular calcification. Normal appendix. No acute intra-abdominal abnormality. Multiple bladder diverticula. Electronically Signed by Ervin Lucio MD 12/09/2018 11:26 A
[2018-12-09] MEDS: HumaLOG INSULIN (NovoLOG) PER UNIT SC SCH ×4 (09:25→21:00)
[2018-12-09] MEDS: APIXABAN 5 MG TAB (ELIQUIS) PO SCH ×2 (09:26→21:55)
[2018-12-09] MEDS: BISOPROLOL FUMARATE 5 MG TAB PO SCH (09:26)
[2018-12-09] MEDS: FINASTERIDE 5 MG TAB PO SCH (09:26)
[2018-12-09] MEDS: OMEPRAZOLE 20 MG CAP PO SCH (09:26)
[2018-12-09] MEDS: FUROSEMIDE 80 MG TAB PO SCH (09:26)
[2018-12-09] MEDS: predniSONE 20 MG TAB PO SCH ×2 (09:26→21:55)
[2018-12-09] MEDS: ASPIRIN 81 MG ENTERIC TAB PO SCH (09:26)
[2018-12-09] MEDS: FENOFIBRATE 145 MG TAB (TRICOR) PO SCH (09:26)
[2018-12-09] MEDS: FERROUS SULFATE 325MG TAB PO SCH (09:26)
[2018-12-09] MEDS: LACTOBACILLUS ACIDOPHILUS CAP (BACID) PO SCH (09:26)
[2018-12-09] MEDS: SERTRALINE HCL 50 MG TAB PO SCH (09:27)
[2018-12-09] MEDS: ACETAMINOPHEN TAB 650MG DOSE (2X325MG) PO PRN ×3 (09:39→21:56)
[2018-12-09] MEDS: IPRATROPIUM 0.5MG/ALBUTEROL 2.5MG INH SOL UD 3ML (DUONEB)(J7620) NEB PRN (13:40)
[2018-12-09 14:00] VITALS: BP 134/66
--- NOTE | 2018-12-09 19:04 | IPNPDOC ---
Subjective Date Seen The patient was seen on 12/09/18. Subjective Chief Complaint/HPI Patient was examined at bedside. He said his SOB and non-productive cough stays about the same as yesterday. Denies any fever, chills, chest pain, palpitation, nausea, or vomiting. He said still has soft stool but it is formed. General: Denies: Chills Constitutional: Denies: Chills, Fever ENT: Denies: Sore Throat Pulmonary: Reports: Dyspnea, Cough; Denies: Pleuritic Chest Pain Cardiovascular: Denies: Chest Pain, Palpitations Gastrointestinal: Reports: Diarrhea; Denies: Nausea, Vomiting, Abdominal Pain, Constipation Psych: Reports: Mood Normal Objective Physical Examination General Exam: Positive: Alert, No Acute Distress Eye Exam: Positive: Conjunctiva & lids normal; Negative: Sclera icteric ENT Exam: Positive: Mucous membr. moist/pink Neck Exam: Positive: Supple Chest Exam: Positive: Normal air movement, Rhonchi (diffuse rhonchi and wheez ing), Wheezing (prolonged expiratory phase with coarse wheezes); Negative: Clear to auscultation Heart Exam: Positive: Rate Normal, Regular Rhythm, Normal S1, Normal S2 Abdomen Exam: Positive: Normal bowel sounds, Soft; Negative: Tenderness Skin Exam: Positive: Other skin issue (Multiple ecchymosis on bilateral upper extremities noted) Neuro Exam: Positive: Normal Speech Psych Exam: Positive: Mood NL, Memory Intact, Oriented x 3 Assessment /Plan Problems (1) Bacteremia Response to Treatment: Stable Problem Text: Bacteremia with blood cx pos for enterococcus faecalis X2. Pt denies any abdominal pain or abnormal colonoscopy results. Ct abdomen showed left colonic diverticulosis without diverticulitis. Did not fit SIRS criteria. Continue Zosyn day 06/25. 2 new sets of blood cx [id number]; cont to f/u. CRP wnl. D/c CRP f/u (2) Hospital acquired PNA Status: Acute Response to Treatment: Stable Discussed With: Nurse, Patient Problem Specific Plan: Monitor Clinically, Repeat Labs Problem Text: CXR from 12/07 showed decreased right upper and lower lobe infiltrate compared to before. On Zosyn day 8. CRPwnl. Chest CT 12/07 showed development of 2.4 cm spiculated opacity in right upper lobe compared to 11/19/2018. Smaller patchy and nodular opacities in the right middle lobe, right lower lobe, left upper lobe, and left lower lobe, also noted. Questionable 2/2 infection vs inflammatory process. Discussed with Dr. Ramsay and she will take the consult. We appreciate for pulmonology team's help. CXR 12/01 showed right upper and lower lobe infiltrate. Non-productive cough. S/p 4 days Vanco; d/c as MRSA neg. Continue Mucinex. Vital signs, resp treatment, and oxy therapy. Respiratory panel neg. Continue to f/u with CRP, continue to monitor the pt. (3) Influenza A Status: Acute Response to Treatment: Stable Problem Specific Plan: Monitor Clinically, Repeat Labs Problem Text: On Mucinex. Vital signs as scheduled. Tamiflu d/c as completed 5 days(10 doses) of Tamiflu (4) Chronic respiratory failure with hypoxia Status: Chronic Response to Treatment: Stable Problem Specific Plan: Monitor Clinically, Repeat Labs Problem Text: Reports baseline SOB. Vital signs as scheduled. Continue respiratory treatment and oxygen therapy. (5) COPD exacerbation Status: Acute Response to Treatment: Stable, Controlled Problem Specific Plan: Monitor Clinically Problem Text: Likely 2/2 influenza vs PNA. Pt states SOB is about baseline. Non-productive cough. Continue PO prednisone 20mg Q12h. Continue vital signs, respiratory treatment, and oxygen therapy as scheduled. (6) Diastolic CHF, chronic Status: Chronic Response to Treatment: Stable, Compensated Problem Specific Plan: Monitor Clinically Problem Text: 12/09. Continue fluid restriction as pt creatinine remains elevated. Lisinopril hold as patient's creatinine and K elevated; K 5.3 12/07. Fluid restriction to 2.5L/24h as creatinine trending up although does not fit TONE criteria.Echo 12/07 showed severe left atrial enlargement, mild elevation of pulmonary artery pressure, and mild left ventricular hypertrophy. Although diastolic function inconclusive on echo, considering pt has cardiomegaly, ankle edema, and noctural cough, fitting Fraginham's criteria for CHF. Preserved EF thus diastolic CHF 12/06: BNP value going down compared to prior. Pt reports only baseline SOB. 2+ bilateral pitting edema noted. Continue current dose PO lasix. Home dose Lasix 40mg QD. Fluid restriction to 1.8L/24h ordered. Continue to monitor 12/05: repeat proBNP tomorrow. 40mg IV lasix X1 today. proBNP was elevated earlier in admission, consider increase in po lasix as well. (7) DM2 (diabetes mellitus, type 2) Status: Chronic Problem Specific Plan: Monitor Clinically, Repeat Labs Problem Text: Blood glucose stable in the 200s on 12/09. Insulin determir increased to 38 units 12/07, continue at current dose as pt may have gluconeogenesis 2/2 steroid use; will continue to monitor. Sliding sclae insulin AC adjusted 12/07. Continue Glucose checks AC&HS. Hypoglycemia protocol (8) Atrial fibrillation Status: Chronic Response to Treatment: Stable Problem Specific Plan: Monitor Clinically Problem Text: Rate controlled wnl, cont with Eliquis (9) Depression Status: Chronic Problem Text: PMH of depression/anxiety. Continue home med Sertraline 50mg QD and Alprazolam PRN (10) Clostridium difficile diarrhea Status: Acute Problem Text: 12/09. Soft formed stool. Continue probiotics. Pt Stool showed C. diff. On PO Vancomycin. Continue to monitor. Reports stool are formed now. Continue probiotics. Continue to f/u with CBC. 12/07 D/C Colace. Start probiotics. Patient reported black melena stool but nursing documented brown colored stool. Hemoglobin stable 10.1 compared to 9.6 last night. Colonoscopy April 2017 showed adenamtous polyp/tubular polpys s/p polypectomy. Pt reports that he was told that no further colonoscopy was needed. CT chest visualized diverticulosis. Pt's hg baseline about 10.5 to 11.5 since 2002. Continue to f/u with CBC and monitor Plan/VTE VTE Prophylaxis Ordered?: Yes (TEDS and SCD) Plan Diet: Continue Current Activity: Continue Current Therapy: PT, OT Diagnostics: Check Labs, Repeat Labs in AM Anticipated Discharge: Sub Acute Rehab Disposition continue treatment or pneumonia, COPD exacerbation, and C.diff. Pt reports SOB and productive cough remains the same compared to yesterday VS, I&O, 24H, Fishbone Vital Signs/I&O Vital Signs Date Time Temp Pulse Resp B/P (MAP) Pulse Ox O2 Delivery O2 Flow Rate FiO2 12/09/18 14:00 98.7 76 18 134/66 (88) 96 Nasal Cannula 2.0 I&O- Last 24 Hours up to 6 AM 12/09/18 05:59 Intake Total 1560 ml Output Total 2525 ml Balance -965 ml Laboratory Data 24H LABS Laboratory Tests 2 12/08/18 20:48: Bedside Glucose (Misc Panel) 229H 12/09/18 06:16: Nucleated Red Blood Cells % (auto) 0.0, Anion Gap 7L, Glomerular Filtration Rate 39.6L, Blood Urea Nitrogen 88H, Creatinine 1.79H, Sodium Level 136, Potassium Level 5.3H, Chloride Level 102, Carbon Dioxide Level 27, Calcium Level 7.5L, C- Reactive Protein, Quantitative < 0.30 12/09/18 11:20: Bedside Glucose (Misc Panel) 214H 12/09/18 17:37: Bedside Glucose (Misc Panel) 275H 12/09/18 17:40: Urine Random Potassium 17.4 CBC/BMP Laboratory Tests 12/09/18 06:16 Red Blood Count 3.23 L, Mean Corpuscular Volume 88.5, Mean Corpuscular Hemoglobin 28.2, Mean Corpuscular Hemoglobin Concent 31.8 L, Red Cell Distribution Width 17.0 H, Calcium Level 7.5 L Microbiology Microbiology 12/06/18 Blood Culture - Preliminary, Resulted No Growth after 72 hours. All specime... 12/06/18 Blood Culture - Preliminary, Resulted No Growth after 72 hours. All specime... 12/01/18 Blood Culture - Final, Complete Enterococcus Faecalis 12/01/18 Blood Culture - Final, Complete Enterococcus Faecalis 12/08/18 Clostridium difficile (PCR) - Final, Complete 12/06/18 Respiratory Virus Panel (PCR) ([facility]) - Final, Complete 12/01/18 MRSA Screen - Final, Complete BRANDON ARORA DO Dec 09, 2018 19:04
[2018-12-09] MEDS: LIDOCAINE 5% (LIDODERM) PATCH TOP SCH (21:00)
[2018-12-09] MEDS: traZODone 100 MG TAB PO SCH (21:55)
[2018-12-09] MEDS: ALPRAZolam 0.25 MG TAB PO PRN (21:55)
[2018-12-09] MEDS: ROSUVASTATIN 10 MG TAB (CRESTOR) PO SCH (21:55)
[2018-12-09] MEDS: TAMSULOSIN 0.4 MG CAP PO SCH (21:55)
[2018-12-09] MEDS: LEVEMIR (INSULIN DETEMIR) 1 UNITS/0.01ML SC SCH (21:55)
[2018-12-09] MEDS: LATANOPROST 0.005% OPHTH SOLN 2.5 ML OU SCH (21:56)
[2018-12-09 22:00] VITALS: BP 127/58
[2018-12-10] MEDS: VANCOMYCIN ORAL SOL 250MG/5ML ORAL SYRINGE PO SCH ×3 (01:40→16:05)
[2018-12-10] MEDS: ACETAMINOPHEN TAB 650MG DOSE (2X325MG) PO PRN ×4 (02:10→16:05)
[2018-12-10 05:50] LABS: HEMATOCRIT 29.4 % (42.0-52.0); HEMOGLOBIN 9.1 g/dl (13.5-17.5); MEAN CORPUSCULAR HEMOGLOBIN 28.3 pg (27.0-33.0); MEAN CORPUSCULAR VOLUME 91.6 fl (80.0-96.0); PLATELET COUNT, AUTOMATED 191 10^3/uL (150-450); RED BLOOD COUNT 3.21 10^6/uL (4.30-6.10); WHITE BLOOD COUNT 10.8 10^3/uL (4.0-10.0)
[2018-12-10 06:00] VITALS: BP 132/61
[2018-12-10 06:17] LABS: CALCIUM LEVEL 7.8 MG/DL (8.8-10.2); CREATININE FOR GFR 1.64 MG/DL (0.70-1.30); GLOMERULAR FILTRATION RATE 43.8 (>42)
[2018-12-10] MEDS: ADVAIR HFA 230/21MCG INHALER INH SCH ×2 (07:28→20:30)
[2018-12-10] MEDS: **NOTE PATIENT COMMENT** MISC XX SCH (09:00)
[2018-12-10] MEDS: HumaLOG INSULIN (NovoLOG) PER UNIT SC SCH ×4 (09:28→22:02)
[2018-12-10] MEDS: LACTOBACILLUS ACIDOPHILUS CAP (BACID) PO SCH (09:28)
[2018-12-10] MEDS: FERROUS SULFATE 325MG TAB PO SCH (09:28)
[2018-12-10] MEDS: OMEPRAZOLE 20 MG CAP PO SCH (09:28)
[2018-12-10] MEDS: APIXABAN 5 MG TAB (ELIQUIS) PO SCH ×2 (09:28→22:01)
[2018-12-10] MEDS: LISINOPRIL 10 MG TAB PO SCH ×2 (09:29→22:01)
[2018-12-10] MEDS: FUROSEMIDE 80 MG TAB PO SCH (09:29)
[2018-12-10] MEDS: FINASTERIDE 5 MG TAB PO SCH (09:29)
[2018-12-10] MEDS: ASPIRIN 81 MG ENTERIC TAB PO SCH (09:29)
[2018-12-10] MEDS: SERTRALINE HCL 50 MG TAB PO SCH (09:30)
[2018-12-10] MEDS: BISOPROLOL FUMARATE 5 MG TAB PO SCH (09:30)
[2018-12-10] MEDS: FENOFIBRATE 145 MG TAB (TRICOR) PO SCH (09:30)
[2018-12-10] MEDS: predniSONE 20 MG TAB PO SCH (09:30)
[2018-12-10] MEDS: IPRATROPIUM 0.5MG/ALBUTEROL 2.5MG INH SOL UD 3ML (DUONEB)(J7620) NEB PRN ×2 (11:08→15:58)
[2018-12-10 14:00] VITALS: BP 129/65
--- NOTE | 2018-12-10 14:19 | IPNPDOC ---
Subjective Date Seen The patient was seen on 12/10/18. Subjective Chief Complaint/HPI Patient reports that he is feeling better. SOB and non-productive cough improved from yesterday. Denies fever, chills, chest pain. Patient states that he has been walking more; walked six times today. Reported melena General: Denies: Chills Constitutional: Denies: Chills, Fever Pulmonary: Reports: Dyspnea, Cough (Improving) Cardiovascular: Denies: Chest Pain, Palpitations Gastrointestinal: Reports: Diarrhea; Denies: Nausea, Vomiting Psych: Reports: Mood Normal Objective Physical Examination General Exam: Positive: Alert, No Acute Distress Eye Exam: Positive: Conjunctiva & lids normal; Negative: Sclera icteric ENT Exam: Positive: Mucous membr. moist/pink Neck Exam: Positive: Supple Chest Exam: Positive: Normal air movement, Rhonchi (diffuse rhonchi and wheezing), Wheezing (coarse wheezes); Negative: Clear to auscultation Heart Exam: Positive: Rate Normal, Regular Rhythm, Normal S1, Normal S2 Abdomen Exam: Positive: Normal bowel sounds, Soft; Negative: Tenderness Skin Exam: Positive: Other skin issue (Multiple ecchymosis on bilateral upper extremities and left shoulder noted) Neuro Exam: Positive: Normal Speech Psych Exam: Positive: Mood NL, Memory Intact, Oriented x 3 Assessment /Plan Problems (1) Bacteremia Response to Treatment: Stable Problem Text: Bacteremia with blood cx pos for enterococcus faecalis X2. Pt denies any abdominal pain or abnormal colonoscopy results. Ct abdomen showed left colonic diverticulosis without diverticulitis. Did not fit SIRS criteria. S/P 7 days Zosyn. 2 new sets of blood cx [id number]; cont to f/u. CRP wnl. D/c CRP f/u (2) Hospital acquired PNA Status: Acute Response to Treatment: Stable Discussed With: Nurse, Patient Problem Specific Plan: Monitor Clinically, Repeat Labs Problem Text: CXR from 12/07 showed decreased right upper and lower lobe infiltrate compared to before. S/P Zosyn 7 days Zosyn. CRPwnl. CXR 12/01 showed right upper and lower lobe infiltrate. Non-productive cough. S/p 4 days Vanco; d/c as MRSA neg. Continue Mucinex. Vital signs, resp treatment, and oxy therapy. Respiratory panel neg. Continue to f/u with CRP, continue to monitor the pt. Chest CT 1/22 showed development of 2.4 cm spiculated opacity in right upper lobe compared to 11/19/2018. Smaller patchy and nodular opacities in the right middle lobe, right lower lobe, left upper lobe, and left lower lobe, also noted. Questionable 2/2 infection vs inflammatory process. Pt will f/u outpt with Dr. Brito whom he had been following; CT chest f/u 3 months (3) Influenza A Status: Acute Response to Treatment: Stable Problem Specific Plan: Monitor Clinically, Repeat Labs Problem Text: On Mucinex. Vital signs as scheduled. Tamiflu d/c as completed 5 days(10 doses) of Tamiflu (4) Chronic respiratory failure with hypoxia Status: Chronic Response to Treatment: Stable Problem Specific Plan: Monitor Clinically, Repeat Labs Problem Text: Reports SOB improving. Vital signs as scheduled. Continue respiratory treatment and oxygen therapy. (5) COPD exacerbation Status: Acute Response to Treatment: Stable, Controlled Problem Specific Plan: Monitor Clinically Problem Text: Likely 2/2 influenza vs PNA. Pt states SOB is about baseline. Non-productive cough. Titrate PO prednisone down to 20mg Q24h. Continue vital signs, respiratory treatment, and oxygen therapy as scheduled. (6) Diastolic CHF, chronic Status: Chronic Response to Treatment: Stable, Compensated Problem Specific Plan: Monitor Clinically Problem Text: 12/10 D/c fluid restriction. Titrate Lasix down from 80mg/day to PO 60mg/day. creatinine improved. Continue to hold ACEI; creatinine 1.64, baseline 1.5. Elevated K resolved. May resume ACEI tmrw if creatinine return to baseline 12/09. Continue fluid restriction as pt creatinine remains elevated. Lisinopril hold as patient's creatinine and K elevated; K 5.3 12/07. Fluid restriction to 2.5L/24h as creatinine trending up although does not fit TONE criteria.Echo 12/07 showed severe left atrial enlargement, mild elevation of pulmonary artery pressure, and mild left ventricular hypertrophy. Although diastolic function inconclusive on echo, considering pt has cardiomegaly, ankle edema, and noctural cough, fitting Fraginham's criteria for CHF. Preserved EF thus diastolic CHF 12/06: BNP value going down compared to prior. Pt reports only baseline SOB. 2+ bilateral pitting edema noted. Continue current dose PO lasix. Home dose Lasix 40mg QD. Fluid restriction to 1.8L/24h ordered. Continue to monitor 12/05: repeat proBNP tomorrow. 40mg IV lasix X1 today. proBNP was elevated earlier in admission, consider increase in po lasix as well. (7) DM2 (diabetes mellitus, type 2) Status: Chronic Problem Specific Plan: Monitor Clinically, Repeat Labs Problem Text: Most recent POC glucose 157. Insulin determir increased to 38 uni ts 12/07, continue at current dose as pt may have gluconeogenesis 2/2 steroid use; will continue to monitor. Sliding sclae insulin AC adjusted 12/07. Continue Glucose checks AC&HS. Hypoglycemia protocol (8) Atrial fibrillation Status: Chronic Response to Treatment: Stable Problem Specific Plan: Monitor Clinically Problem Text: Rate controlled wnl, cont with Eliquis (9) Depression Status: Chronic Problem Text: PMH of depression/anxiety. Continue home med Sertraline 50mg QD and Alprazolam PRN (10) Clostridium difficile diarrhea Status: Acute Problem Text: 12/10 3 formed soft stool yesterday. Pt reports melena; occult blood ordered. On PO Vancomycin; 05/15 doses so far. Continue to monitor 12/09. Soft formed stool. Continue probiotics. Pt Stool showed C. diff. On PO Vancomycin. Continue to monitor. Reports stool are formed now. Continue probiotics. Continue to f/u with CBC. 12/07 D/C Colace. Start probiotics. Patient reported black melena stool but nursing documented brown colored stool. Hemoglobin stable 10.1 compared to 9.6 last night. Colonoscopy April 2017 showed adenamtous polyp/tubular polpys s/p polypectomy. Pt reports that he was told that no further colonoscopy was needed. CT chest visualized diverticulosis. Pt's hg baseline about 10.5 to 11.5 since 2002. Continue to f/u with CBC and monitor Plan/VTE VTE Prophylaxis Ordered?: Yes (TEDS and SCD) Plan Diet: Continue Current Activity: Continue Current Therapy: PT, OT Medications: Taper Steroids (on 20mg QD prednisone now) Diagnostics: Repeat Labs in AM, Obtain Cultures Anticipated Discharge: Sub Acute Rehab Disposition Taper PO prednisone to 20mg QD. Lasix PO changed from 80mg to 60mg. Aspiration precaution VS, I&O, 24H, Fishbone Vital Signs/I&O Vital Signs Date Time Temp Pulse Resp B/P (MAP) Pulse Ox O2 Delivery O2 Flow Rate FiO2 12/10/18 09:29 132/61 12/10/18 08:00 2.0 12/10/18 06:00 98.8 78 18 96 Nasal Cannula I&O- Last 24 Hours up to 6 AM 12/10/18 06:00 Intake Total 2260 ml Output Total 3850 ml Balance -1590 ml Laboratory Data 24H LABS Laboratory Tests 2 12/09/18 17:37: Bedside Glucose (Misc Panel) 275H 12/09/18 17:40: Urine Random Potassium 17.4 12/09/18 21:01: Bedside Glucose (Misc Panel) 245H 12/10/18 05:32: Nucleated Red Blood Cells % (auto) 0.0, Anion Gap 8, Glomerular Filtration Rate 43.8, Blood Urea Nitrogen 72H, Creatinine 1.64H, Sodium Level 136, Potassium Level 5.0, Chloride Level 101, Carbon Dioxide Level 27, Calcium Level 7.8L 12/10/18 05:53: Bedside Glucose (Misc Panel) 443H 12/10/18 11:32: Bedside Glucose (Misc Panel) 157H CBC/BMP Laboratory Tests 12/10/18 05:32 Red Blood Count 3.21 L, Mean Corpuscular Volume 91.6, Mean Corpuscular Hemoglobin 28.3, Mean Corpuscular Hemoglobin Concent 31.0 L, Red Cell Distribution Width 17.0 H, Calcium Level 7.8 L Microbiology Microbiology 12/06/18 Blood Culture - Preliminary, Resulted No Growth after 72 hours. All specime... 12/06/18 Blood Culture - Preliminary, Resulted No Growth after 72 hours. All specime... 12/01/18 Blood Culture - Final, Complete Enterococcus Faecalis 12/01/18 Blood Culture - Final, Complete Enterococcus Faecalis 12/08/18 Clostridium difficile (PCR) - Final, Complete 12/06/18 Respiratory Virus Panel (PCR) ([facility]) - Final, Complete 12/01/18 MRSA Screen - Final, Complete BRANDON ARORA DO Dec 10, 2018 14:19
[2018-12-10] MEDS: ALPRAZolam 0.25 MG TAB PO PRN (16:05)
[2018-12-10 22:00] VITALS: BP 119/56
[2018-12-10] MEDS: TAMSULOSIN 0.4 MG CAP PO SCH (22:00)
[2018-12-10] MEDS: LEVEMIR (INSULIN DETEMIR) 1 UNITS/0.01ML SC SCH (22:01)
[2018-12-10] MEDS: ROSUVASTATIN 10 MG TAB (CRESTOR) PO SCH (22:01)
[2018-12-10] MEDS: traZODone 100 MG TAB PO SCH (22:01)
[2018-12-10] MEDS: LATANOPROST 0.005% OPHTH SOLN 2.5 ML OU SCH (22:02)
[2018-12-10] MEDS: LIDOCAINE 5% (LIDODERM) PATCH TOP SCH (22:07)
[2018-12-11] MEDS: VANCOMYCIN ORAL SOL 250MG/5ML ORAL SYRINGE PO SCH ×3 (00:58→17:59)
[2018-12-11] MEDS: ALPRAZolam 0.25 MG TAB PO PRN ×2 (01:01→12:54)
[2018-12-11] MEDS: ACETAMINOPHEN TAB 650MG DOSE (2X325MG) PO PRN ×3 (03:33→21:30)
[2018-12-11 06:00] VITALS: BP 103/58
[2018-12-11 06:23] LABS: HEMATOCRIT 28.6 % (42.0-52.0); HEMOGLOBIN 8.9 g/dl (13.5-17.5); MEAN CORPUSCULAR HEMOGLOBIN 28.3 pg (27.0-33.0); MEAN CORPUSCULAR HGB CONC 31.1 g/dl (32.0-36.5); MEAN CORPUSCULAR VOLUME 91.1 fl (80.0-96.0); PLATELET COUNT, AUTOMATED 185 10^3/uL (150-450); RED BLOOD COUNT 3.14 10^6/uL (4.30-6.10); WHITE BLOOD COUNT 10.3 10^3/uL (4.0-10.0)
[2018-12-11 06:38] LABS: CREATININE FOR GFR 1.44 MG/DL (0.70-1.30); GLOMERULAR FILTRATION RATE 50.9 (>42); POTASSIUM SERUM 4.4 MEQ/L (3.5-5.1)
[2018-12-11] MEDS: ADVAIR HFA 230/21MCG INHALER INH SCH ×2 (07:51→20:32)
[2018-12-11] MEDS: IPRATROPIUM 0.5MG/ALBUTEROL 2.5MG INH SOL UD 3ML (DUONEB)(J7620) NEB PRN ×2 (07:55→13:09)
[2018-12-11] MEDS: FINASTERIDE 5 MG TAB PO SCH (08:28)
[2018-12-11] MEDS: LACTOBACILLUS ACIDOPHILUS CAP (BACID) PO SCH (08:28)
[2018-12-11] MEDS: BISOPROLOL FUMARATE 5 MG TAB PO SCH (08:29)
[2018-12-11] MEDS: LISINOPRIL 10 MG TAB PO SCH ×2 (08:30→21:29)
[2018-12-11] MEDS: FENOFIBRATE 145 MG TAB (TRICOR) PO SCH (08:30)
[2018-12-11] MEDS: APIXABAN 5 MG TAB (ELIQUIS) PO SCH ×2 (08:30→21:29)
[2018-12-11] MEDS: predniSONE 20 MG TAB PO SCH (08:30)
[2018-12-11] MEDS: ASPIRIN 81 MG ENTERIC TAB PO SCH (08:30)
[2018-12-11] MEDS: OMEPRAZOLE 20 MG CAP PO SCH (08:31)
[2018-12-11] MEDS: SERTRALINE HCL 50 MG TAB PO SCH (08:31)
[2018-12-11] MEDS: FERROUS SULFATE 325MG TAB PO SCH (08:31)
[2018-12-11] MEDS: HumaLOG INSULIN (NovoLOG) PER UNIT SC SCH ×4 (08:32→21:29)
[2018-12-11] MEDS: **NOTE PATIENT COMMENT** MISC XX SCH (09:00)
[2018-12-11] MEDS ORDERED: FUROSEMIDE 20 MG TAB PO SCH (09:00)
[2018-12-11 14:00] VITALS: BP 120/52
[2018-12-11] MEDS ORDERED: PILL CRUSHER/CUTTER 1 EACH XX PRN (14:00)
--- NOTE | 2018-12-11 14:00 | IPNPDOC ---
Subjective Date Seen The patient was seen on 12/11/18. Subjective Chief Complaint/HPI Patient is examined at bedside. He states that his SOB and non-productive cough is about the same as yesterday. Denies any chest pain, palpitation, fever, or chills. He reported diffuse abdominal pain and is still having diarrhea. General: Denies: Chills Constitutional: Denies: Chills, Fever Skin: Reports: Bruising Pulmonary: Reports: Dyspnea, Cough; Denies: Pleuritic Chest Pain Cardiovascular: Denies: Chest Pain, Palpitations Gastrointestinal: Reports: Abdominal Pain, Diarrhea; Denies: Nausea, Vomiting Neurological: Denies: Change in speech, Confusion Psych: Reports: Mood Normal; Denies: Memory Issues Objective Physical Examination General Exam: Positive: Alert, No Acute Distress Eye Exam: Positive: Conjunctiva & lids normal; Negative: Sclera icteric ENT Exam: Positive: Mucous membr. moist/pink Neck Exam: Positive: Supple Chest Exam: Positive: Normal air movement, Rhonchi (diffuse rhonchi); Negative: Clear to auscultation Heart Exam: Positive: Rate Normal, Regular Rhythm, Normal S1, Normal S2 Abdomen Exam: Positive: Normal bowel sounds, Soft; Negative: Tenderness Extremity Exam: Negative: Edema, Swelling Skin Exam: Positive: Other skin issue (Multiple ecchymosis on bilateral upper extremities and left shoulder noted. Skin mildly dry) Neuro Exam: Positive: Normal Speech Psych Exam: Positive: Mood NL, Memory Intact, Oriented x 3 Assessment /Plan Problems (1) Hospital acquired PNA Status: Acute Response to Treatment: Stable Discussed With: Nurse, Patient Problem Specific Plan: Monitor Clinically, Repeat Labs Problem Text: CXR from 12/07 showed decreased right upper and lower lobe infiltrate compared to before. S/P Zosyn 7 days Zosyn. CRPwnl. CXR 12/01 showed right upper and lower lobe infiltrate. Non-productive cough. S/p 4 days Vanco; d/c as MRSA neg. Continue Mucinex. Vital signs, resp treatment, and oxy therapy. Respiratory panel neg. Continue to f/u with CRP, continue to monitor the pt. Chest CT 12/07 showed development of 2.4 cm spiculated opacity in right upper lobe compared to 11/19/2018. Smaller patchy and nodular opacities in the right middle lobe, right lower lobe, left upper lobe, and left lower lobe, also noted. Questionable 2/2 infection vs inflammatory process. Pt will f/u outpt with Dr. Brito whom he had been following; CT chest f/u 3 months (2) Clostridium difficile diarrhea Status: Acute Problem Text: 12/11 Pt cont to have diarrhea. Occult blood pos; CT abdomen no GI abnormality except for diverticulosis. PO Vanco 08/15 doses so far. Cont to monitor and contact isolation. Increase probiotics to 2 tab daily; may change back to 1 tab daily afterwards 12/10 3 formed soft stool yesterday. Pt reports melena; occult blood ordered. On PO Vancomycin; 30 doses so far. Continue to monitor 12/09. Soft formed stool. Continue probiotics. Pt Stool showed C. diff. On PO Vancomycin. Continue to monitor. Reports stool are formed now. Continue probiotics. Continue to f/u with CBC. 12/07 D/C Colace. Start probiotics. Patient reported black melena stool but nursing documented brown colored stool. Hemoglobin stable 10.1 compared to 9.6 last night. Colonoscopy April 2017 showed adenamtous polyp/tubular polpys s/p p olypectomy. Pt reports that he was told that no further colonoscopy was needed. CT chest visualized diverticulosis. Pt's hg baseline about 10.5 to 11.5 since 2002. Continue to f/u with CBC and monitor (3) Bacteremia Status: Resolved Response to Treatment: Stable Problem Text: Bacteremia with blood cx pos for enterococcus faecalis X2. Pt denies any abdominal pain or abnormal colonoscopy results. Ct abdomen showed left colonic diverticulosis without diverticulitis. Did not fit SIRS criteria. S/P 7 days Zosyn. 2 new sets of blood cx [id number]; cont to f/u. CRP wnl. D/c CRP f/u (4) COPD exacerbation Status: Acute Response to Treatment: Stable, Controlled Problem Specific Plan: Monitor Clinically Problem Text: Likely 2/2 influenza vs PNA. Pt states SOB is about baseline. No n-productive cough. Continue PO prednisone 20mg Q24h. Continue vital signs, respiratory treatment, and oxygen therapy as scheduled. (5) Influenza A Status: Acute Response to Treatment: Stable Problem Specific Plan: Monitor Clinically, Repeat Labs Problem Text: On Mucinex. Vital signs as scheduled. Tamiflu d/c as completed 5 days(10 doses) of Tamiflu (6) Chronic respiratory failure with hypoxia Status: Chronic Response to Treatment: Stable Problem Specific Plan: Monitor Clinically, Repeat Labs Problem Text: Reports SOB improving. Vital signs as scheduled. Continue respir atory treatment and oxygen therapy. (7) Diastolic CHF, chronic Status: Chronic Response to Treatment: Stable, Compensated Problem Specific Plan: Monitor Clinically Problem Text: 12/11 Titrate Lasix down to PO 50mg/day. COnt to hold ACEI; creatinine improved at 1.4 back to baseline. Cont to hold ACEI for now as pt BP roughly wnl with peak BP 130s/60s 12/10 D/c fluid restriction. Titrate Lasix down from 80mg/day to PO 60mg/day. creatinine improved. Continue to hold ACEI; creatinine 1.64, baseline 1.5. Elevated K resolved. May resume ACEI tmrw if creatinine return to baseline 12/09. Continue fluid restriction as pt creatinine remains elevated. Lisinopril hold as patient's creatinine and K elevated; K 5.3 12/07. Fluid restriction to 2.5L/24h as creatinine trending up although does not fit TONE criteria.Echo 12/07 showed severe left atrial enlargement, mild elevation of pulmonary artery pressure, and mild left ventricular hypertrophy. Although diastolic function inconclusive on echo, considering pt has cardiomegaly, ankle edema, and noctural cough, fitting Fraginham's criteria for CHF. Preserved EF thus diastolic CHF 12/06: BNP value going down compared to prior. Pt reports only baseline SOB. 2+ bilateral pitting edema noted. Continue current dose PO lasix. Home dose Lasix 40mg QD. Fluid restriction to 1.8L/24h ordered. Continue to monitor 12/05: repeat proBNP tomorrow. 40mg IV lasix X1 today. proBNP was elevated earlier in admission, consider increase in po lasix as well. (8) DM2 (diabetes mellitus, type 2) Status: Chronic Problem Specific Plan: Monitor Clinically, Repeat Labs Problem Text: Most recent POC glucose 125. Insulin determir increased to 38 units 12/07, continue at current dose as pt may have gluconeogenesis 2/2 steroid use; will continue to monitor. Sliding sclae insulin AC adjusted 12/07. Continue Glucose checks AC&HS. Hypoglycemia protocol (9) Atrial fibrillation Status: Chronic Response to Treatment: Stable Problem Specific Plan: Monitor Clinically Problem Text: Rate controlled wnl, cont with Eliquis (10) Depression Status: Chronic Problem Text: PMH of depression/anxiety. Continue home med Sertraline 50mg QD and Alprazolam PRN Plan/VTE VTE Prophylaxis Ordered?: Yes (TEDS and SCD) Plan Diet: Continue Current Activity: Continue Current Therapy: PT, OT Medications: Taper Steroids (on 20mg QD prednisone now) Diagnostics: Repeat Labs in AM, Obtain Cultures Anticipated Discharge: Home With Services, Sub Acute Rehab Lasix down to 50mg QD. Cont prednisone 20mg QD. Cough and SOB about same as yesterday. Increase probiotics to 2 tab per day; Vanco PO dose 08/15 ATTENDING NOTE Attending Note: I was present on site to supervise, STEFANIE Ramesh. We di scussed the history an exam. We conferred on the assessment and plan and I agree with the note as documented above. Mr. Cruz continues to make slow steady progress. Continue current regimen with minor adjustments as above. 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) VS, I&O, 24H, Fishbone Vital Signs/I&O Vital Signs Date Time Temp Pulse Resp B/P (MAP) Pulse Ox O2 Delivery O2 Flow Rate FiO2 12/11/18 08:29 78 130/64 12/11/18 06:00 96.8 19 97 Nasal Cannula 2.0 I&O- Last 24 Hours up to 6 AM 12/11/18 06:00 Intake Total 2100 ml Output Total 3275 ml Balance -1175 ml Laboratory Data 24H LABS Laboratory Tests 2 12/10/18 16:58: Bedside Glucose (Misc Panel) 335H 12/10/18 20:29: Bedside Glucose (Misc Panel) 257H 12/11/18 05:43: Nucleated Red Blood Cells % (auto) 0.0, Anion Gap 7L, Glomerular Filtration Rate 50.9, Blood Urea Nitrogen 73H, Creatinine 1.44H, Sodium Level 139, Potassium Level 4.4, Chloride Level 104, Carbon Dioxide Level 28, Calcium Level 8.0L 12/11/18 11:41: Bedside Glucose (Misc Panel) 125H CBC/BMP Laboratory Tests 12/11/18 05:43 Red Blood Count 3.14 L, Mean Corpuscular Volume 91.1, Mean Corpuscular Hemoglobin 28.3, Mean Corpuscular Hemoglobin Concent 31.1 L, Red Cell Distribution Width 17.0 H, Calcium Level 8.0 L Microbiology Microbiology 12/06/18 Blood Culture - Preliminary, Resulted No Growth after 72 hours. All specime... 12/06/18 Blood Culture - Preliminary, Resulted No Growth after 72 hours. All specime... 12/01/18 Blood Culture - Final, Complete Enterococcus Faecalis 12/01/18 Blood Culture - Final, Complete Enterococcus Faecalis 12/11/18 Stool Occult Blood ([facility]) - Final, Complete 12/08/18 Clostridium difficile (PCR) - Final, Complete 12/06/18 Respiratory Virus Panel (PCR) ([facility]) - Final, Complete 12/01/18 MRSA Screen - Final, Complete BRANDON ARORA DO Dec 11, 2018 14:00 Mervin Hodge MD Dec 11, 2018 21:23
[2018-12-11] MEDS: LEVEMIR (INSULIN DETEMIR) 1 UNITS/0.01ML SC SCH (21:29)
[2018-12-11] MEDS: TAMSULOSIN 0.4 MG CAP PO SCH (21:29)
[2018-12-11] MEDS: ROSUVASTATIN 10 MG TAB (CRESTOR) PO SCH (21:29)
[2018-12-11] MEDS: traZODone 100 MG TAB PO SCH (21:29)
[2018-12-11] MEDS: LIDOCAINE 5% (LIDODERM) PATCH TOP SCH (21:30)
[2018-12-11] MEDS: LATANOPROST 0.005% OPHTH SOLN 2.5 ML OU SCH (21:30)
[2018-12-11 22:00] VITALS: BP 127/60
[2018-12-12] VITALS (10 sets, daily range): BP systolic 80–135; BP diastolic 40–72
[2018-12-12] MEDS: ALPRAZolam 0.25 MG TAB PO PRN (01:00)
[2018-12-12] MEDS: VANCOMYCIN ORAL SOL 250MG/5ML ORAL SYRINGE PO SCH ×3 (01:01→17:46)
[2018-12-12] MEDS: ACETAMINOPHEN TAB 650MG DOSE (2X325MG) PO PRN ×3 (03:46→20:43)
[2018-12-12 06:20] LABS: HEMATOCRIT 28.2 % (42.0-52.0); HEMOGLOBIN 8.9 g/dl (13.5-17.5); MEAN CORPUSCULAR HEMOGLOBIN 28.4 pg (27.0-33.0); MEAN CORPUSCULAR HGB CONC 31.6 g/dl (32.0-36.5); MEAN CORPUSCULAR VOLUME 90.1 fl (80.0-96.0); PLATELET COUNT, AUTOMATED 181 10^3/uL (150-450); RED BLOOD COUNT 3.13 10^6/uL (4.30-6.10); WHITE BLOOD COUNT 10.2 10^3/uL (4.0-10.0)
[2018-12-12 06:49] LABS: CALCIUM LEVEL 7.9 MG/DL (8.8-10.2); CREATININE FOR GFR 1.43 MG/DL (0.70-1.30); GLOMERULAR FILTRATION RATE 51.3 (>42); POTASSIUM SERUM 4.4 MEQ/L (3.5-5.1)
[2018-12-12] MEDS: **NOTE PATIENT COMMENT** MISC XX SCH (07:41)
[2018-12-12] MEDS: HumaLOG INSULIN (NovoLOG) PER UNIT SC SCH ×4 (07:58→20:44)
[2018-12-12] MEDS: LACTOBACILLUS ACIDOPHILUS CAP (BACID) PO SCH (07:59)
[2018-12-12] MEDS: SERTRALINE HCL 50 MG TAB PO SCH (07:59)
[2018-12-12] MEDS: FINASTERIDE 5 MG TAB PO SCH (07:59)
[2018-12-12] MEDS: FERROUS SULFATE 325MG TAB PO SCH (07:59)
[2018-12-12] MEDS: OMEPRAZOLE 20 MG CAP PO SCH (07:59)
[2018-12-12] MEDS: predniSONE 20 MG TAB PO SCH (07:59)
[2018-12-12] MEDS: ASPIRIN 81 MG ENTERIC TAB PO SCH (07:59)
[2018-12-12] MEDS: FENOFIBRATE 145 MG TAB (TRICOR) PO SCH (07:59)
[2018-12-12] MEDS: LISINOPRIL 10 MG TAB PO SCH ×2 (08:00→20:42)
[2018-12-12] MEDS: APIXABAN 5 MG TAB (ELIQUIS) PO SCH ×2 (08:00→20:42)
[2018-12-12] MEDS: BISOPROLOL FUMARATE 5 MG TAB PO SCH (08:01)
[2018-12-12] MEDS: ADVAIR HFA 230/21MCG INHALER INH SCH ×2 (08:15→20:26)
[2018-12-12] MEDS: IPRATROPIUM 0.5MG/ALBUTEROL 2.5MG INH SOL UD 3ML (DUONEB)(J7620) NEB PRN ×2 (08:16→15:29)
[2018-12-12] MEDS ORDERED: FUROSEMIDE 20 MG TAB PO SCH (09:00)
[2018-12-12] MEDS ORDERED: NS 500 ML IV ONE (10:15)
[2018-12-12] MEDS: traZODone 100 MG TAB PO SCH (20:42)
[2018-12-12] MEDS: TAMSULOSIN 0.4 MG CAP PO SCH (20:42)
[2018-12-12] MEDS: ROSUVASTATIN 10 MG TAB (CRESTOR) PO SCH (20:42)
[2018-12-12] MEDS: LATANOPROST 0.005% OPHTH SOLN 2.5 ML OU SCH (20:44)
[2018-12-12] MEDS: LIDOCAINE 5% (LIDODERM) PATCH TOP SCH (20:44)
[2018-12-12] MEDS ORDERED: LEVEMIR (INSULIN DETEMIR) 1 UNITS/0.01ML SC SCH (21:00)
--- NOTE | 2018-12-12 21:33 | IPNPDOC ---
Subjective Date Seen The patient was seen on 12/12/18. Subjective Chief Complaint/HPI I was called by nursing before I had a chance to see Mr. Cruz to report that his BP was running low (80s SBP) and he was feeling dizzy. He had received bisoprolol, lisinopril, and furosemide within an hour before this. I ordered a 500cc bolus and asked him to lay down with his feet elevated. When I evaluated him 1-2h later his BP was much better (115 SBP). He reports that other than that episode he has been feeling about the same. Still coughing with some sputum production, but no significant change. General: Reports: Normal Appetite Constitutional: Denies: Chills, Fever Pulmonary: Reports: Dyspnea (stable/chronic) Cardiovascular: Reports: Lt Headedness; Denies: Chest Pain, Palpitations Genitourinary: Denies: Dysuria Psych: Reports: Mood Normal Objective Physical Examination General Exam: Positive: Alert, Cooperative (laying in bed comfortable when I entered the room), No Acute Distress Eye Exam: Positive: Conjunctiva & lids normal; Negative: Sclera icteric ENT Exam: Positive: Mucous membr. moist/pink Neck Exam: Positive: Supple Chest Exam: Positive: Normal air movement, Rhonchi (deep bronchiectatic rhonchi still noted); Negative: Clear to auscultation, Wheezing Heart Exam: Positive: Rate Normal, Irregular Rhythm, Normal S1, Normal S2 Abdomen Exam: Positive: Normal bowel sounds, Soft; Negative: Tenderness Extremity Exam: Negative: Edema, Swelling Skin Exam: Positive: Other skin issue (Multiple ecchymosis on bilateral upper extremities and left shoulder noted. Skin mildly dry) Neuro Exam: Positive: Normal Speech Psych Exam: Positive: Mood NL, Memory Intact, Oriented x 3 Assessment /Plan Problems (1) Hypotension Status: Acute Response to Treatment: Improving Problem Specific Plan: Monitor Clinically Problem Text: I do NOT think this represents sepsis. I think that he got a little volume depleted with the combination of a diuretic and diarrhea. Initially I held his bisoprolol (which won't be given again until tomorrow anyway), but I will reinstate this with hold parameters and instead hold his furosemide. I'm not sure he needs any diuresis right now. However, as his diarrhea improves, this should be reconsidered. (2) Clostridium difficile diarrhea Status: Acute Problem Text: 12/12: Diarrhea continues, but a little improved. Day 410 of oral Vanco. 12/11 Pt cont to have diarrhea. Occult blood pos; CT abdomen no GI abnormality except for diverticulosis. PO Vanco 08/15 doses so far. Cont to monitor and contact isolation. Increase probiotics to 2 tab daily; may change back to 1 tab daily afterwards 12/10 3 formed soft stool yesterday. Pt reports melena; occult blood ordered. On PO Vancomycin; 05/15 doses so far. Continue to monitor 12/09. Soft formed stool. Continue probiotics. Pt Stool showed C. diff. On PO Vancomycin. Continue to monitor. Reports stool are formed now. Continue probiotics. Continue to f/u with CBC. 12/07 D/C Colace. Start probiotics. Patient reported black melena stool but nursing documented brown colored stool. Hemoglobin stable 10.1 compared to 9.6 last night. Colonoscopy April 2017 showed adenamtous polyp/tubular polpys s/p polypectomy. Pt reports that he was told that no further colonoscopy was needed. CT chest visualized diverticulosis. Pt's hg baseline about 10.5 to 11.5 since 2002. Continue to f/u with CBC and monitor (3) DM2 (diabetes mellitus, type 2) Status: Chronic Problem Specific Plan: Monitor Clinically, Repeat Labs Problem Text: Most recent POC glucose 105, but had been running in the 2-300s before. Insulin detemir increased to 50 units 12/12. Will continue to monitor. Sliding scale insulin. Continue Glucose checks AC&HS. Hypoglycemia protocol (4) COPD exacerbation Status: Acute Response to Treatment: Stable, Controlled Problem Specific Plan: Monitor Clinically Problem Text: Likely 2/2 influenza vs PNA. Pt states SOB is about baseline. No n-productive cough. Continue PO prednisone 20mg Q24h, consider tapering again in 1-2 days. Continue vital signs, respiratory treatment, and oxygen therapy as scheduled. (5) Diastolic CHF, chronic Status: Chronic Response to Treatment: Stable, Compensated Problem Specific Plan: Monitor Clinically Problem Text: 12/12: I opted to hold his furosemide starting tomorrow (he had already received today's dose). Monitor fluid status carefully as his diarrhea improves. 12/11 Titrate Lasix down to PO 50mg/day. COnt to hold ACEI; creatinine improved at 1.4 back to baseline. Cont to hold ACEI for now as pt BP roughly wnl with peak BP 130s/60s 12/10 D/c fluid restriction. Titrate Lasix down from 80mg/day to PO 60mg/day. creatinine improved. Continue to hold ACEI; creatinine 1.64, baseline 1.5. Elevated K resolved. May resume ACEI tmrw if creatinine return to baseline 12/09. Continue fluid restriction as pt creatinine remains elevated. Lisinopril hold as patient's creatinine and K elevated; K 5.3 12/07. Fluid restriction to 2.5L/24h as creatinine trending up although does not fit TONE criteria.Echo 12/07 showed severe left atrial enlargement, mild elevation of pulmonary artery pressure, and mild left ventricular hypertrophy. Although diastolic function inconclusive on echo, considering pt has cardiomegaly, ankle edema, and noctural cough, fitting Fraginham's criteria for CHF. Preserved EF thus diastolic CHF 12/06: BNP value going down compared to prior. Pt reports only baseline SOB. 2+ bilateral pitting edema noted. Continue current dose PO lasix. Home dose Lasix 40mg QD. Fluid restriction to 1.8L/24h ordered. Continue to monitor 12/05: repeat proBNP tomorrow. 40mg IV lasix X1 today. proBNP was elevated earlier in admission, consider increase in po lasix as well. (6) Chronic respiratory failure with hypoxia Status: Chronic Response to Treatment: Stable Problem Specific Plan: Monitor Clinically, Repeat Labs Problem Text: Reports SOB improving. Vital signs as scheduled. Continue respiratory treatment and oxygen therapy. (7) Atrial fibrillation Status: Chronic Response to Treatment: Stable Problem Specific Plan: Monitor Clinically Problem Text: Rate controlled wnl, cont with Eliquis. Hold parameters on the bisoprolol. (8) Depression Status: Chronic Problem Text: PMH of depression/anxiety. Continue home med Sertraline 50mg QD and Alprazolam PRN (9) Hospital acquired PNA Status: Resolved Response to Treatment: Stable Discussed With: Nurse, Patient Problem Specific Plan: Monitor Clinically, Repeat Labs Problem Text: CXR from 12/07 showed decreased right upper and lower lobe infiltrate compared to before. S/P Zosyn 7 days Zosyn. CRPwnl. CXR 12/01 showed right upper and lower lobe infiltrate. Non-productive cough. S/p 4 days Vanco; d/c as MRSA neg. Continue Mucinex. Vital signs, resp treatment, and oxy therapy. Respiratory panel neg. Continue to f/u with CRP, continue to monitor the pt. Chest CT 12/07 showed development of 2.4 cm spiculated opacity in right upper lobe compared to 11/19/2018. Smaller patchy and nodular opacities in the right middle lobe, right lower lobe, left upper lobe, and left lower lobe, also noted. Questionable 2/2 infection vs inflammatory process. Pt will f/u outpt with Dr. Brito whom he had been following; CT chest f/u 3 months (10) Influenza A Status: Acute Response to Treatment: Stable Problem Specific Plan: Monitor Clinically, Repeat Labs Problem Text: On Mucinex. Vital signs as scheduled. Tamiflu d/c as completed 5 days(10 doses) of Tamiflu (11) Bacteremia Status: Resolved Response to Treatment: Stable Problem Text: Bacteremia with blood cx pos for enterococcus faecalis X2. Pt denies any abdominal pain or abnormal colonoscopy results. Ct abdomen showed left colonic diverticulosis without diverticulitis. Did not fit SIRS criteria. S/P 7 days Zosyn. 2 new sets of blood cx [id number]; cont to f/u. CRP wnl. D/c CRP f/u Plan/VTE VTE Prophylaxis Ordered?: Yes (TEDS and SCD) Plan Diet: Continue Current Activity: Continue Current Therapy: PT, OT Medications: Taper Steroids (on 20mg QD prednisone now) Diagnostics: Repeat Labs in AM, Obtain Cultures Anticipated Discharge: Sub Acute Rehab VS, I&O, 24H, Fishbone Vital Signs/I&O Vital Signs Date Time Temp Pulse Resp B/P (MAP) Pulse Ox O2 Delivery O2 Flow Rate FiO2 12/12/18 14:45 115/54 (74) 12/12/18 14:00 90 19 98 Nasal Cannula 2.0 12/12/18 06:00 97.7 I&O- Last 24 Hours up to 6 AM 12/12/18 06:00 Intake Total 1500 ml Output Total 1800 ml Balance -300 ml Laboratory Data 24H LABS Laboratory Tests 2 12/12/18 05:57: Nucleated Red Blood Cells % (auto) 0.0, Anion Gap 7L, Glomerular Filtration Rate 51.3, Blood Urea Nitrogen 69H, Creatinine 1.43H, Sodium Level 139, Potassium Level 4.4, Chloride Level 105, Carbon Dioxide Level 27, Calcium Level 7.9L 12/12/18 11:29: Bedside Glucose (Misc Panel) 105 12/12/18 16:29: Bedside Glucose (Misc Panel) 371H 12/12/18 20:28: Bedside Glucose (Misc Panel) 326H CBC/BMP Laboratory Tests 12/12/18 05:57 Red Blood Count 3.13 L, Mean Corpuscular Volume 90.1, Mean Corpuscular Hemoglobin 28.4, Mean Corpuscular Hemoglobin Concent 31.6 L, Red Cell Distribution Width 17.1 H, Calcium Level 7.9 L Microbiology Microbiology 12/06/18 Blood Culture - Final, Complete NO GROWTH AFTER 5 DAYS 12/06/18 Blood Culture - Final, Complete NO GROWTH AFTER 5 DAYS 12/11/18 Stool Occult Blood ([facility]) - Final, Complete 12/08/18 Clostridium difficile (PCR) - Final, Complete 12/06/18 Respiratory Virus Panel (PCR) ([facility]) - Final, Complete Mervin Hodge MD Dec 12, 2018 21:33
[2018-12-13] MEDS: VANCOMYCIN ORAL SOL 250MG/5ML ORAL SYRINGE PO SCH ×3 (01:06→18:02)
[2018-12-13] MEDS: ALPRAZolam 0.25 MG TAB PO PRN ×2 (01:06→13:21)
[2018-12-13 06:00] VITALS: BP 132/78
[2018-12-13 06:11] LABS: BASO % 0.2 % (0.0-1.0); EOS # 0.1 10^3/uL (0.0-0.50); EOS % 0.9 % (0.0-3.0); HEMATOCRIT 28.9 % (42.0-52.0); LYMPH % 10.1 % (24.0-44.0); MEAN CORPUSCULAR HEMOGLOBIN 28.6 pg (27.0-33.0); MEAN CORPUSCULAR HGB CONC 31.1 g/dl (32.0-36.5); MEAN CORPUSCULAR VOLUME 91.7 fl (80.0-96.0); MONO # 0.6 10^3/uL (0.0-0.8); MONO % 5.9 % (0.0-5.0); NEUTROPHILS # 7.6 10^3/uL (1.8-7.7); NEUTROPHILS % 79.9 % (36.0-66.0); PLATELET COUNT, AUTOMATED 169 10^3/uL (150-450); RED BLOOD COUNT 3.15 10^6/uL (4.30-6.10); WHITE BLOOD COUNT 9.6 10^3/uL (4.0-10.0)
[2018-12-13] MEDS: ACETAMINOPHEN TAB 650MG DOSE (2X325MG) PO PRN ×3 (06:28→21:04)
[2018-12-13 06:36] LABS: ALBUMIN 2.3 GM/DL (3.2-5.2); BILIRUBIN,TOTAL 0.3 MG/DL (0.2-1.0); CALCIUM LEVEL 7.7 MG/DL (8.8-10.2); CREATININE FOR GFR 1.31 MG/DL (0.70-1.30); GLOMERULAR FILTRATION RATE 56.8 (>42); POTASSIUM SERUM 4.2 MEQ/L (3.5-5.1); TOTAL PROTEIN 5.3 GM/DL (6.4-8.2)
[2018-12-13] MEDS: **NOTE PATIENT COMMENT** MISC XX SCH (07:41)
[2018-12-13 08:22] VITALS: BP_SYST 122; BP_DIAS 56; BP_DIAS 72
[2018-12-13] MEDS: ADVAIR HFA 230/21MCG INHALER INH SCH ×2 (08:28→21:15)
[2018-12-13] MEDS: HumaLOG INSULIN (NovoLOG) PER UNIT SC SCH ×4 (08:39→21:00)
[2018-12-13] MEDS: FERROUS SULFATE 325MG TAB PO SCH (10:34)
[2018-12-13] MEDS: LACTOBACILLUS ACIDOPHILUS CAP (BACID) PO SCH (10:34)
[2018-12-13] MEDS: APIXABAN 5 MG TAB (ELIQUIS) PO SCH ×2 (10:34→21:00)
[2018-12-13] MEDS: FINASTERIDE 5 MG TAB PO SCH (10:35)
[2018-12-13] MEDS: SERTRALINE HCL 50 MG TAB PO SCH (10:36)
[2018-12-13] MEDS: ASPIRIN 81 MG ENTERIC TAB PO SCH (10:36)
[2018-12-13] MEDS: BISOPROLOL FUMARATE 5 MG TAB PO SCH (10:36)
[2018-12-13] MEDS: FENOFIBRATE 145 MG TAB (TRICOR) PO SCH (10:36)
[2018-12-13] MEDS: OMEPRAZOLE 20 MG CAP PO SCH (10:36)
[2018-12-13] MEDS: LISINOPRIL 10 MG TAB PO SCH ×2 (10:37→21:00)
[2018-12-13] MEDS: predniSONE 20 MG TAB PO SCH (10:37)
--- NOTE | 2018-12-13 12:15 | IPNPDOC ---
Subjective Date Seen The patient was seen on 12/13/18. Subjective Chief Complaint/HPI Patient is examined at bedside. He states that he has no improve SOB and cough; stating that these have resolved. Denies fever or chills; stating that he had 4 diarrhea BM yesterday. Denies and chest pain, palpitation, nausea, vomiting, or abdominal pain. However, pt did report that he always have to sleep upright; during prior interview he said he was able to sleep flat with 3 pillows. General: Reports: Normal Appetite; Denies: Chills Constitutional: Denies: Chills, Fever Pulmonary: Denies: Dyspnea, Cough, Pleuritic Chest Pain Cardiovascular: Denies: Chest Pain, Palpitations Gastrointestinal: Reports: Diarrhea; Denies: Nausea, Vomiting, Abdominal Pain Neurological: Denies: Change in speech, Confusion Psych: Reports: Mood Normal; Denies: Memory Issues Objective Physical Examination General Exam: Positive: Alert, No Acute Distress Eye Exam: Positive: Conjunctiva & lids normal; Negative: Sclera icteric ENT Exam: Positive: Mucous membr. moist/pink Neck Exam: Positive: Supple Chest Exam: Positive: Normal air movement, Rhonchi (deep bronchiectatic rhonchi still noted); Negative: Clear to auscultation, Wheezing Heart Exam: Positive: Rate Normal, Regular Rhythm, Normal S1, Normal S2 Abdomen Exam: Positive: Normal bowel sounds, Soft; Negative: Tenderness Extremity Exam: Positive: Edema (Trace bilateral LE); Negative: Swelling Skin Exam: Positive: Nl turgor and temperature, Other skin issue (Multiple ecchymosis on bilateral upper extremities and left shoulder noted. ) Neuro Exam: Positive: Normal Speech Psych Exam: Positive: Mood NL, Memory Intact, Oriented x 3 Assessment /Plan Problems (1) Clostridium difficile diarrhea Status: Acute Problem Text: 12/13. Diarrhea continues. Day 03/25 PO Vanco 12/12: Diarrhea continues, but a little improved. Day 02/23 of oral Vanco. 12/11 Pt cont to have diarrhea. Occult blood pos; CT abdomen no GI abnormality except for diverticulosis. PO Vanco 08/15 doses so far. Cont to monitor and contact isolation. Increase probiotics to 2 tab daily; may change back to 1 tab daily afterwards (2) DM2 (diabetes mellitus, type 2) Status: Chronic Problem Specific Plan: Monitor Clinically, Repeat Labs Problem Text: This morning blood sugar was low with hypoglycemia protocol. Insulin determir decreased to 40 units. Most recent POC glucose 108. Sliding scale insulin QHS. Continue Glucose checks AC&HS. Insulin detemir increased to 50 units 12/12. Will continue to monitor. (3) COPD exacerbation Status: Acute Response to Treatment: Stable, Controlled Problem Specific Plan: Monitor Clinically Problem Text: Likely 2/2 influenza vs PNA. Pt reports no SOB. Non-productive co ugh observed. Continue PO prednisone 20mg Q24h. Continue vital signs, respiratory treatment, and oxygen therapy as scheduled. (4) Diastolic CHF, chronic Status: Chronic Response to Treatment: Stable, Compensated Problem Specific Plan: Monitor Clinically Problem Text: 12/13. Pt showed no obvious signs of fluid overload besides only trace bilateral LE edema. Continue to monitor. Continue to hold ACEI as BP roughly wnl. 12/12: I opted to hold his furosemide starting tomorrow (he had already received today's dose). Monitor fluid status carefully as his diarrhea improves. 12/11 Titrate Lasix down to PO 50mg/day. COnt to hold ACEI; creatinine improved at 1.4 back to baseline. Cont to hold ACEI for now as pt BP roughly wnl with peak BP 130s/60s 12/10 D/c fluid restriction. Titrate Lasix down from 80mg/day to PO 60mg/day. creatinine improved. Continue to hold ACEI; creatinine 1.64, baseline 1.5. Elevated K resolved. May resume ACEI tmrw if creatinine return to baseline 12/09. Continue fluid restriction as pt creatinine remains elevated. Lisinopril hold as patient's creatinine and K elevated; K 5.3 (5) Chronic respiratory failure with hypoxia Status: Chronic Response to Treatment: Stable Problem Specific Plan: Monitor Clinically, Repeat Labs Problem Text: Reports no SOB. Vital signs as scheduled. Continue respiratory treatment and oxygen therapy. (6) Atrial fibrillation Status: Chronic Response to Treatment: Stable Problem Specific Plan: Monitor Clinically Problem Text: Rate controlled wnl, cont with Eliquis. Hold parameters on the bisoprolol. (7) Depression Status: Chronic Problem Text: PMH of depression/anxiety. Continue home med Sertraline 50mg QD and Alprazolam PRN (8) Hospital acquired PNA Status: Resolved Response to Treatment: Stable Discussed With: Nurse, Patient Problem Specific Plan: Monitor Clinically, Repeat Labs Problem Text: CXR from 12/07 showed decreased right upper and lower lobe infiltrate compared to before. S/P Zosyn 7 days Zosyn. CRPwnl; stop following RP. CXR 12/01 showed right upper and lower lobe infiltrate. Non-productive cough. S/p 4 days Vanco; d/c as MRSA neg. Continue Mucinex. Vital signs, resp treatment, an d oxy therapy. Respiratory panel neg. Continue to monitor the pt. Chest CT 12/07 showed development of 2.4 cm spiculated opacity in right upper lobe compared to 11/19/2018. Smaller patchy and nodular opacities in the right middle lobe, right lower lobe, left upper lobe, and left lower lobe, also noted. Questionable 2/2 infection vs inflammatory process. Pt will f/u outpt with Dr. Brito whom he had been following; CT chest f/u 3 months (9) Influenza A Status: Acute Response to Treatment: Stable Problem Specific Plan: Monitor Clinically, Repeat Labs Problem Text: On Mucinex. Vital signs as scheduled. Tamiflu d/c as completed 5 days(10 doses) of Tamiflu (10) Bacteremia Status: Resolved Response to Treatment: Stable Problem Text: Bacteremia with blood cx pos for enterococcus faecalis X2. Pt denies any abdominal pain or abnormal colonoscopy results. Ct abdomen showed left colonic diverticulosis without diverticulitis. Did not fit SIRS criteria. S/P 7 days Zosyn. 2 new sets of blood cx [id number]; cont to f/u. CRP wnl. D/c CRP f/u Plan/VTE VTE Prophylaxis Ordered?: Yes (TEDS and SCD) Plan Diet: Continue Current Activity: Continue Current Therapy: PT, OT Medications: Taper Steroids (on 20mg QD prednisone now) Diagnostics: Repeat Labs in AM Anticipated Discharge: Home With Services VS, I&O, 24H, Fishbone Vital Signs/I&O Vital Signs Date Time Temp Pulse Resp B/P (MAP) Pulse Ox O2 Delivery O2 Flow Rate FiO2 12/13/18 10:36 64 122/56 12/13/18 10:08 2.0 12/13/18 08:22 96.8 20 99 Nasal Cannula l I&O- Last 24 Hours up to 6 AM 12/13/18 06:00 Intake Total 2200 ml Output Total 3500 ml Balance -1300 ml Laboratory Data 24H LABS Laboratory Tests 2 12/12/18 16:29: Bedside Glucose (Misc Panel) 371H 12/12/18 20:28: Bedside Glucose (Misc Panel) 326H 12/13/18 05:52: Immature Granulocyte % (Auto) 3.0, White Blood Count 9.6, Red Blood Count 3.15L, Hemoglobin 9.0L, Hematocrit 28.9L, Mean Corpuscular Volume 91.7, Mean Corpuscular Hemoglobin 28.6, Mean Corpuscular Hemoglobin Concent 31.1L, Red Cell Distribution Width 17.2H, Platelet Count 169, Neutrophils (%) (Auto) 79.9H, Lymphocytes (%) (Auto) 10.1L, Monocytes (%) (Auto) 5.9H, Eosinophils (%) (Auto) 0.9, Basophils (%) (Auto) 0.2, Neutrophils # (Auto) 7.6, Lymphocytes # (Auto) 1.0L, Monocytes # (Auto) 0.6, Eosinophils # (Auto) 0.1, Basophils # (Auto) 0.0, Nucleated Red Blood Cells % (auto) 0.0, Anion Gap 6L, Glomerular Filtration Rate 56.8, Blood Urea Nitrogen 55H, Creatinine 1.31H, Sodium Level 139, Potassium Level 4.2, Chloride Level 105, Carbon Dioxide Level 28, Calcium Level 7.7L, Aspartate Amino Transf (AST/SGOT) 17, Alanine Aminotransferase (ALT/SGPT) 30, Alkaline Phosphatase 48, Total Bilirubin 0.3, Total Protein 5.3L, Albumin 2.3L, Albumin/Globulin Ratio 0.77L 12/13/18 11:31: Bedside Glucose (Misc Panel) 46L 12/13/18 11:46: Bedside Glucose (Misc Panel) 52L CBC/BMP Laboratory Tests 12/13/18 05:52 Red Blood Count 3.15 L, Mean Corpuscular Volume 91.7, Mean Corpuscular Hemoglobin 28.6, Mean Corpuscular Hemoglobin Concent 31.1 L, Red Cell Distribution Width 17.2 H, Neutrophils (%) (Auto) 79.9 H, Lymphocytes (%) (Auto) 10.1 L, Monocytes (%) (Auto) 5.9 H, Eosinophils (%) (Auto) 0.9, Basophils (%) (Auto) 0.2, Neutrophils # (Auto) 7.6, Lymphocytes # (Auto) 1.0 L, Monocytes # (Auto) 0.6, Eosinophils # (Auto) 0.1, Basophils # (Auto) 0.0, Calcium Level 7.7 L, Aspartate Amino Transf (AST/SGOT) 17, Alanine Aminotransferase (ALT/SGPT) 30, Alkaline Phosphatase 48, Total Bilirubin 0.3, Total Protein 5.3 L, Albumin 2.3 L Microbiology Microbiology 12/06/18 Blood Culture - Final, Complete NO GROWTH AFTER 5 DAYS 12/06/18 Blood Culture - Final, Complete NO GROWTH AFTER 5 DAYS 12/11/18 Stool Occult Blood ([facility]) - Final, Complete 12/08/18 Clostridium difficile (PCR) - Final, Complete 12/06/18 Respiratory Virus Panel (PCR) ([facility]) - Final, Complete BRANDON ARORA DO Dec 13, 2018 12:15
[2018-12-13 12:30] VITALS: BP 136/60
[2018-12-13] MEDS: IPRATROPIUM 0.5MG/ALBUTEROL 2.5MG INH SOL UD 3ML (DUONEB)(J7620) NEB PRN (13:52)
[2018-12-13] MEDS: traZODone 100 MG TAB PO SCH (21:00)
[2018-12-13] MEDS: TAMSULOSIN 0.4 MG CAP PO SCH (21:00)
[2018-12-13] MEDS: LEVEMIR (INSULIN DETEMIR) 1 UNITS/0.01ML SC SCH (21:00)
[2018-12-13] MEDS: ROSUVASTATIN 10 MG TAB (CRESTOR) PO SCH (21:00)
[2018-12-13] MEDS: LIDOCAINE 5% (LIDODERM) PATCH TOP SCH (21:00)
[2018-12-13] MEDS: LATANOPROST 0.005% OPHTH SOLN 2.5 ML OU SCH (21:00)
[2018-12-13 22:00] VITALS: BP 162/68
[2018-12-14] MEDS: VANCOMYCIN ORAL SOL 250MG/5ML ORAL SYRINGE PO SCH ×3 (01:00→17:00)
[2018-12-14] MEDS: ALPRAZolam 0.25 MG TAB PO PRN ×3 (01:05→22:09)
[2018-12-14 06:00] VITALS: BP 160/64
[2018-12-14] MEDS: ADVAIR HFA 230/21MCG INHALER INH SCH ×2 (08:30→20:00)
[2018-12-14] MEDS: **NOTE PATIENT COMMENT** MISC XX SCH (09:00)
[2018-12-14] MEDS: SERTRALINE HCL 50 MG TAB PO SCH (09:44)
[2018-12-14] MEDS: ASPIRIN 81 MG ENTERIC TAB PO SCH (09:44)
[2018-12-14] MEDS: FUROSEMIDE 20 MG TAB PO SCH (09:44)
[2018-12-14] MEDS: FINASTERIDE 5 MG TAB PO SCH (09:45)
[2018-12-14] MEDS: BISOPROLOL FUMARATE 5 MG TAB PO SCH (09:45)
[2018-12-14] MEDS: FENOFIBRATE 145 MG TAB (TRICOR) PO SCH (09:45)
[2018-12-14] MEDS: APIXABAN 5 MG TAB (ELIQUIS) PO SCH ×2 (09:46→22:02)
[2018-12-14] MEDS: LISINOPRIL 10 MG TAB PO SCH ×2 (09:46→22:03)
[2018-12-14] MEDS: OMEPRAZOLE 20 MG CAP PO SCH (09:46)
[2018-12-14] MEDS: FERROUS SULFATE 325MG TAB PO SCH (09:46)
[2018-12-14] MEDS: LACTOBACILLUS ACIDOPHILUS CAP (BACID) PO SCH (09:46)
[2018-12-14] MEDS: HumaLOG INSULIN (NovoLOG) PER UNIT SC SCH ×4 (09:47→21:04)
[2018-12-14] MEDS: predniSONE 20 MG TAB PO SCH (09:47)
--- NOTE | 2018-12-14 11:10 | IPNPDOC ---
Subjective Date Seen The patient was seen on 12/14/18. Subjective Chief Complaint/HPI Pt is examined at bedside. He denies SOB, cough, fever, or chills. Reported 4 diarrhea that's from watery to solid stool yesterday. He described that he had some abdominal pain General: Denies: Chills Constitutional: Denies: Chills, Fever Pulmonary: Denies: Dyspnea, Cough, Pleuritic Chest Pain Cardiovascular: Denies: Chest Pain, Palpitations Gastrointestinal: Reports: Abdominal Pain, Diarrhea; Denies: Nausea, Vomiting Hematologic: Reports: Bruising Objective Physical Examination General Exam: Positive: Alert, No Acute Distress Eye Exam: Positive: Conjunctiva & lids normal; Negative: Sclera icteric ENT Exam: Positive: Mucous membr. moist/pink Neck Exam: Positive: Supple Chest Exam: Positive: Normal air movement, Rhonchi (deep bronchiectatic rhonchi still noted); Negative: Clear to auscultation, Wheezing Heart Exam: Positive: Rate Normal, Regular Rhythm, Normal S1, Normal S2 Abdomen Exam: Positive: Normal bowel sounds, Soft; Negative: Tenderness Extremity Exam: Positive: Edema (Trace bilateral LE); Negative: Swelling Skin Exam: Positive: Nl turgor and temperature, Other skin issue (Multiple ecchymosis on bilateral upper extremities and left shoulder noted. ) Neuro Exam: Positive: Normal Speech Psych Exam: Positive: Mood NL, Memory Intact, Oriented x 3 Assessment /Plan Problems (1) Clostridium difficile diarrhea Status: Acute Problem Text: 12/14 Diarrhea improving. Pt reports 4 BM with some watery but soft solid stool. Day 04/25 PO Vanco. Continue to monitor 12/13. Diarrhea continues. Day 03/25 PO Vanco 12/12: Diarrhea continues, but a little improved. Day 02/23 of oral Vanco. 12/11 Pt cont to have diarrhea. Occult blood pos; CT abdomen no GI abnormality except for diverticulosis. PO Vanco 08/15 doses so far. Cont to monitor and contact isolation. Increase probiotics to 2 tab daily; may change back to 1 tab daily afterwards (2) DM2 (diabetes mellitus, type 2) Status: Chronic Problem Specific Plan: Monitor Clinically, Repeat Labs Problem Text: Most recent POC 193; may be 2/2 to steroid use. This morning blood sugar was low with hypoglycemia protocol. Insulin determir decreased to 40 units. Sliding scale insulin QHS. Continue Glucose checks AC&HS. (3) COPD exacerbation Status: Acute Response to Treatment: Stable, Controlled Problem Specific Plan: Monitor Clinically Problem Text: Likely 2/2 influenza vs PNA. Pt reports no SOB. Non-productive cough observed. Continue PO prednisone 20mg Q24h. Continue vital signs, respiratory treatment, and oxygen therapy as scheduled. (4) Diastolic CHF, chronic Status: Chronic Response to Treatment: Stable, Compensated Problem Specific Plan: Monitor Clinically Problem Text: 12/14 Pt on home med Lisinopril. Start 20mg Lasix PO; will resume at home dose 40mg tmrw. BP mildly elevated with SBP in 160s today. Mild trace edema in b.l LE 12/13. Pt showed no obvious signs of fluid overload besides only trace bilateral LE edema. Continue to monitor. Continue to hold ACEI as BP roughly wnl. 12/12: I opted to hold his furosemide starting tomorrow (he had already received today's dose). Monitor fluid status carefully as his diarrhea improves. 12/11 Titrate Lasix down to PO 50mg/day. COnt to hold ACEI; creatinine improved at 1.4 back to baseline. Cont to hold ACEI for now as pt BP roughly wnl with peak BP 130s/60s 12/10 D/c fluid restriction. Titrate Lasix down from 80mg/day to PO 60mg/day. creatinine improved. Continue to hold ACEI; creatinine 1.64, baseline 1.5. Elevated K resolved. May resume ACEI tmrw if creatinine return to baseline 12/09. Continue fluid restriction as pt creatinine remains elevated. Lisinopril hold as patient's creatinine and K elevated; K 5.3 (5) Chronic respiratory failure with hypoxia Status: Chronic Response to Treatment: Stable Problem Specific Plan: Monitor Clinically, Repeat Labs Problem Text: Reports no SOB. Vital signs as scheduled. Continue respiratory treatment and oxygen therapy. Pt will be d/c home with oxygen (6) Atrial fibrillation Status: Chronic Response to Treatment: Stable Problem Specific Plan: Monitor Clinically Problem Text: Rate controlled wnl, cont with Eliquis. Hold parameters on the bisoprolol. (7) Depression Status: Chronic Problem Text: PMH of depression/anxiety. Continue home med Sertraline 50mg QD and Alprazolam PRN (8) Hospital acquired PNA Status: Resolved Response to Treatment: Stable Discussed With: Nurse, Patient Problem Specific Plan: Monitor Clinically, Repeat Labs Problem Text: CXR from 12/07 showed decreased right upper and lower lobe infiltrate compared to before. S/P Zosyn 7 days Zosyn. CRPwnl; stop following RP. CXR 12/01 showed right upper and lower lobe infiltrate. Non-productive cough. S/p 4 days Vanco; d/c as MRSA neg. Continue Mucinex. Vital signs, resp treatment, and oxy therapy. Respiratory panel neg. Continue to monitor the pt. Chest CT 12/07 showed development of 2.4 cm spiculated opacity in right upper lobe compared to 11/19/2018. Smaller patchy and nodular opacities in the right middle lobe, right lower lobe, left upper lobe, and left lower lobe, also noted. Questionable 2/2 infection vs inflammatory process. Pt will f/u outpt with Dr. Brito whom he had been following; CT chest f/u 3 months (9) Influenza A Status: Acute Response to Treatment: Stable Problem Specific Plan: Monitor Clinically, Repeat Labs Problem Text: On Mucinex. Vital signs as scheduled. Tamiflu d/c as completed 5 days(10 doses) of Tamiflu (10) Bacteremia Status: Resolved Response to Treatment: Stable Problem Text: Bacteremia with blood cx pos for enterococcus faecalis X2. Pt denies any abdominal pain or abnormal colonoscopy results. Ct abdomen showed left colonic diverticulosis without diverticulitis. Did not fit SIRS criteria. S/P 7 days Zosyn. 2 new sets of blood cx [id number]; cont to f/u. CRP wnl. D/c CRP f/u Plan/VTE VTE Prophylaxis Ordered?: Yes (TEDS and SCD) Plan Diet: Continue Current Activity: Continue Current Therapy: PT, OT Medications: Taper Steroids (on 20mg QD prednisone now) Diagnostics: Repeat Labs in AM Anticipated Discharge: Home With Services VS, I&O, 24H, Vladislav Vital Signs/I&O Vital Signs Date Time Temp Pulse Resp B/P (MAP) Pulse Ox O2 Delivery O2 Flow Rate FiO2 12/14/18 09:46 158/62 12/14/18 09:45 73 12/14/18 06:00 97.5 18 96 Nasal Cannula 2.0 I&O- Last 24 Hours up to 6 AM 12/14/18 06:00 Intake Total 1400 ml Output Total 1965 ml Balance -565 ml Laboratory Data 24H LABS Laboratory Tests 2 12/13/18 11:31: Bedside Glucose (Misc Panel) 46L 12/13/18 11:46: Bedside Glucose (Misc Panel) 52L 12/13/18 12:42: Bedside Glucose (Misc Panel) 108 12/13/18 20:35: Bedside Glucose (Misc Panel) 193H Microbiology Microbiology 12/06/18 Blood Culture - Final, Complete NO GROWTH AFTER 5 DAYS 12/06/18 Blood Culture - Final, Complete NO GROWTH AFTER 5 DAYS 12/11/18 Stool Occult Blood (SING[facility]) - Final, Complete 12/08/18 Clostridium difficile (PCR) - Final, Complete 12/06/18 Respiratory Virus Panel (PCR) (SING[facility]) - Final, Complete BRANDON ARORA DO Dec 14, 2018 11:10
[2018-12-14 11:50] LABS: HEMATOCRIT 30.7 % (42.0-52.0); HEMOGLOBIN 9.4 g/dl (13.5-17.5); MEAN CORPUSCULAR HEMOGLOBIN 28.2 pg (27.0-33.0); MEAN CORPUSCULAR HGB CONC 30.6 g/dl (32.0-36.5); MEAN CORPUSCULAR VOLUME 92.2 fl (80.0-96.0); PLATELET COUNT, AUTOMATED 164 10^3/uL (150-450); RED BLOOD COUNT 3.33 10^6/uL (4.30-6.10); WHITE BLOOD COUNT 10.2 10^3/uL (4.0-10.0)
[2018-12-14 12:17] LABS: BLOOD UREA NITROGEN 48 MG/DL (7-18); CALCIUM LEVEL 7.9 MG/DL (8.8-10.2); CARBON DIOXIDE LEVEL 27 MEQ/L (21-32); CHLORIDE LEVEL 107 MEQ/L (98-107); CREATININE FOR GFR 1.15 MG/DL (0.70-1.30); GLOMERULAR FILTRATION RATE > 60.0 (>42); GLUCOSE, FASTING 73 MG/DL (70-100); POTASSIUM SERUM 4.2 MEQ/L (3.5-5.1); SODIUM LEVEL 141 MEQ/L (136-145)
[2018-12-14] MEDS: IPRATROPIUM 0.5MG/ALBUTEROL 2.5MG INH SOL UD 3ML (DUONEB)(J7620) NEB PRN ×2 (13:11→21:15)
[2018-12-14] MEDS: ACETAMINOPHEN TAB 650MG DOSE (2X325MG) PO PRN ×2 (13:29→22:10)
[2018-12-14 14:00] VITALS: BP 152/70
[2018-12-14 22:00] VITALS: BP 132/65
[2018-12-14] MEDS: traZODone 100 MG TAB PO SCH (22:02)
[2018-12-14] MEDS: TAMSULOSIN 0.4 MG CAP PO SCH (22:02)
[2018-12-14] MEDS: ROSUVASTATIN 10 MG TAB (CRESTOR) PO SCH (22:02)
[2018-12-14] MEDS: LIDOCAINE 5% (LIDODERM) PATCH TOP SCH ×2 (22:03→22:10)
[2018-12-14] MEDS: LEVEMIR (INSULIN DETEMIR) 1 UNITS/0.01ML SC SCH (22:03)
[2018-12-14] MEDS: LATANOPROST 0.005% OPHTH SOLN 2.5 ML OU SCH (22:03)
[2018-12-15] MEDS: VANCOMYCIN ORAL SOL 250MG/5ML ORAL SYRINGE PO SCH ×2 (01:02→08:03)
[2018-12-15 06:00] VITALS: BP 160/64
[2018-12-15 06:20] LABS: HEMATOCRIT 28.2 % (42.0-52.0); HEMOGLOBIN 8.7 g/dl (13.5-17.5); MEAN CORPUSCULAR HEMOGLOBIN 28.2 pg (27.0-33.0); MEAN CORPUSCULAR HGB CONC 30.9 g/dl (32.0-36.5); MEAN CORPUSCULAR VOLUME 91.3 fl (80.0-96.0); PLATELET COUNT, AUTOMATED 162 10^3/uL (150-450); RED BLOOD COUNT 3.09 10^6/uL (4.30-6.10); WHITE BLOOD COUNT 7.4 10^3/uL (4.0-10.0)
[2018-12-15 06:36] LABS: ALBUMIN 2.3 GM/DL (3.2-5.2); CALCIUM LEVEL 7.5 MG/DL (8.8-10.2); CREATININE FOR GFR 1.29 MG/DL (0.70-1.30); GLOMERULAR FILTRATION RATE 57.8 (>42)
[2018-12-15] MEDS: HumaLOG INSULIN (NovoLOG) PER UNIT SC SCH ×2 (07:29→13:05)
[2018-12-15] MEDS: ADVAIR HFA 230/21MCG INHALER INH SCH (08:00)
[2018-12-15] MEDS: ASPIRIN 81 MG ENTERIC TAB PO SCH (08:04)
[2018-12-15] MEDS: LACTOBACILLUS ACIDOPHILUS CAP (BACID) PO SCH (08:04)
[2018-12-15] MEDS: OMEPRAZOLE 20 MG CAP PO SCH (08:04)
[2018-12-15] MEDS: FUROSEMIDE 20 MG TAB PO SCH (08:04)
[2018-12-15] MEDS: SERTRALINE HCL 50 MG TAB PO SCH (08:05)
[2018-12-15] MEDS: FENOFIBRATE 145 MG TAB (TRICOR) PO SCH (08:05)
[2018-12-15] MEDS: FINASTERIDE 5 MG TAB PO SCH (08:05)
[2018-12-15] MEDS: APIXABAN 5 MG TAB (ELIQUIS) PO SCH (08:05)
[2018-12-15] MEDS: predniSONE 20 MG TAB PO SCH (08:05)
[2018-12-15] MEDS: FERROUS SULFATE 325MG TAB PO SCH (08:05)
[2018-12-15 08:13] VITALS: BP 112/56
[2018-12-15] MEDS: BISOPROLOL FUMARATE 5 MG TAB PO SCH (08:13)
[2018-12-15] MEDS: LISINOPRIL 10 MG TAB PO SCH (08:13)
[2018-12-15] MEDS: **NOTE PATIENT COMMENT** MISC XX SCH (08:13)
[2018-12-15] MEDS ORDERED: RISATAB3 PO (11:18)
[2018-12-15] MEDS ORDERED: PRED5PAK PO (11:23)
[2018-12-15] MEDS: ALPRAZolam 0.25 MG TAB PO PRN (13:12)
--- NOTE | 2018-12-16 14:09 | DS.PDOC ---
Discharge Summary General Date of Admission Dec 01, 2018 at 14:33 Date of Discharge 12/16/18 Attending Physician: Mian Almonte MD Discharge Summary PROCEDURES PERFORMED DURING STAY: [None]. ADMITTING DIAGNOSES: 1. Hospital-acquired pneumonia 2. Influenza A infection 3 COPD exacerbation DISCHARGE DIAGNOSES: 1. Clostridium difficile diarrhea 2. DM type 2 3. COPD exacerbation 4 Diastolic CHF, chronic 5. Chronic respiratory failure with hypoxia 6. atrial fibrillation 7. Depression 8. Hospital acquired pneumonia 9. Influenza A, resolved 10. Bacteremia, resolved COMPLICATIONS/CHIEF COMPLAINT: Hospital Acquired Pna. HISTORY OF PRESENT ILLNESS: Patient is a 73 yo male with PMH of COPD, diabetes, HTN, hyperlipidemia, OR s/p CABG in 2009, and CKD stage 3 who was d/c on 11/30/18 on prior visit presented at [facility] d/t severe SOB and productive cough. On prior viit, pt was prescribed with prednisone taper and 5 days of Levaquin. Pt denies ml fever, chills, chest pain, or palpations. HOSPITAL COURSE: Patient's CXR showed right lower and upper lobe infiltrate. No sputum sample was able to be obtained as pt has non-productive cough during hospital stay. He was treated with IV Solu-Medrol and Zosyn and Vanco. Vanco was later d/c as MRSA neg. He was also found to be pos for influenza type A and received Tamiflu for 5 days. Repeat CXR 12/07 showed improving right upper and lower lob infiltrate. CT chest showed development of 2.4cm spiculated opacity in right upper lobe with small patchy nodular opacities in RML, RLL, CONCETTA, and LLL. Discussed with Dr. Ramsay and pt, and he will follow up outpatient with Dr. Brito and have repeat CT in Dec since he was already seeing Dr. Brito for nodular opacities. 2XEnterococcus Faecalis was found in patient's blood Cx and pt was on Zosyn. Patient's CT abdomen 12/08/18 showed no significant acute abnormality ; diverticulosis w/o diverticulitis was present. Repeat blood cul ture was negX2. Pt reported melena diarrhea for the past few days on 12/07/18 while he had been denying having diarrhea since admission. He was pos for C. diff and was started on PO Vanco and probiotics. His diarrhea improved gradually. Pt's SOB, cough resolved as of 12/13/18. His home Lasix was originally increased to 80mg then gradually titrated down to 50mg; Lasix was then d/c as pt's blood pressure was low. He was re-started at lower dose 20mg Lasix when blood pressure began to elevat. Blood sugar elevated majority of time during hospital stay, and he had insulin determir and sliding scale adjusted multiple times. Patient was cleared by PT to be safe to be d/c to home with service, however pt declined service multiple times, stating his brother will help him. Patient was d/c home with PO vanco, probiotics, and Prednisone 20mg taper for 10 days. DISCHARGE MEDICATIONS: Please see below. ALLERGIES: Please see below. PHYSICAL EXAMINATION ON DISCHARGE: VITAL SIGNS: Please see below. GENERAL: &OX3, not in acute distress HEENT: Normocephalic, atraumatic.Conjunctiva and lids normal. No scleral icterus NECK: Supple CARDIOVASCULAR EXAMINATION: RRR, no murmur, S1 and S2 normal RESPIRATORY EXAMINATION: Normal air movement, deep bronchiectatic rhonchi noted ABDOMINAL EXAMINATION: Bowel sound aus in all 4 quadrants, soft, no tenderness upon palpation EXTREMITIES: Radial pulse equal b/l, trace BLE edema SKIN: Multiple ecchymosis noted NEUROLOGICAL EXAMINATION: A&OX3 PSYCHIATRIC EXAMINATION: Appropriate to situation LABORATORY DATA: Please see below. IMAGING: CXR 12/01 showed chronic interstitial fibrosis. Right upper and lower lobe infiltrate CXR 12/07 showed chronic interstitial fibrosis. Right upper and lower lobe infiltrate decreased compared to previous study Chest CT showed development of 2.4cm spiculated opacity in R upper lobe and small patchy and nodular opacity in RML, RLL, CONCETTA, and LLL. Chronic diverticulosis also noted. Abdomen CT 12/08 showed left colonic diverticulosis w/o evidence of diverticulitis, stable right adrenal adenoma that's benign. Multiple bladder diverticula. PROGNOSIS: Fair ACTIVITY: [As tolerated]. DIET: Consistent carbohydrates/COPD diet DISCHARGE PLAN AND INSTRUCTION: Follow up with PCP in 7 days. Follow up with Dr. Brito as scheduled for spiculated lung opacity Patient was notified that home service was available for him and declined; stating that his brother will help him at home DISPOSITION: 01 Home, Self-Care. ITEMS TO FOLLOWUP ON ON OUTPATIENT: 1. C. diff diarrhea 2. Diverticulosis/melena 3. Pneumonia 4. Multiple nodular opacities present in all lung lobes. DISCHARGE CONDITION: [Stable]. TIME SPENT ON DISCHARGE: Greater than 20 minutes. Vital Signs/I&Os Vital Signs Date Time Temp Pulse Resp B/P (MAP) Pulse Ox O2 Delivery O2 Flow Rate FiO2 12/15/18 08:13 112/56 12/15/18 08:13 82 12/15/18 08:00 2.0 12/15/18 06:00 97.5 18 96 Nasal Cannula I&O- Last 24 Hours up to 6 AM 12/16/18 06:00 Intake Total 960 ml Output Total 425 ml Balance 535 ml Microbiology Microbiology 12/06/18 Blood Culture - Final, Complete NO GROWTH AFTER 5 DAYS 12/06/18 Blood Culture - Final, Complete NO GROWTH AFTER 5 DAYS 12/11/18 Stool Occult Blood (SING[facility]) - Final, Complete 12/08/18 Clostridium difficile (PCR) - Final, Complete 12/06/18 Respiratory Virus Panel (PCR) (SING[facility]) - Final, Complete Discharge Medications Scheduled (Incruse Ellipta) 62.5 Mcg/Inh Inh, 1 PUFF INH DAILY, (Reported) (Tammy-Bid Probiotic) 1 Tab Tab, 2 EA PO DAILY Acetaminophen (Tylenol Extra Strength) 500 Mg Tab, 1,000 MG PO QHS, (Reported) Apixaban Base (Eliquis) 5 Mg Tab, 5 MG PO BID, (Reported) Aspirin (Aspirin EC) 81 Mg Tabec, 81 MG PO DAILY, (Reported) Bisoprolol Fumarate (Bisoprolol Fumarate) 5 Mg Tab, 5 MG PO DAILY, (Reported) TAKES AT NOON Docusate Sodium (Docusate Sodium) 100 Mg Cap, 100 MG PO BID, (Reported) Fenofibrate (Fenofibrate) 160 Mg Tab, 160 MG PO DAILY, (Reported) TAKES AT NOON Ferrous Sulfate (Ferrous Sulfate) 325 Mg Tab, 325 MG PO DAILY, (Reported) Finasteride (Proscar) 5 Mg Tab, 5 MG PO DAILY, (Reported) TAKES AT NOON Fish Oil (Fish Oil) 1,000 Mg Cap, 1,000 MG PO BID, (Reported) Furosemide (Furosemide) 20 Mg Tab, 40 MG PO DAILY, (Reported) Insulin Glargine (Lantus) 1 Units/0.01 Ml Susp, 22 UNITS SC QHS, (Reported) Insulin Human Lispro (Humalog) 1 Units/0.01 Ml Inj, 0 SC ACHS, (Reported) PER SLIDING SCALE Latanoprost (Xalatan) 0.005 % Sudhir, 1 DROP OU QHS, (Reported) Lidocaine (Lidocaine) 5 % Pad, 2 PATCH TOP QHS, (Reported) APPLY TO BOTH SHOULDERS Lisinopril (Lisinopril) 10 Mg Tab, 10 MG PO BID, (Reported) TAKES NOON AND BEDTIME Omeprazole (Omeprazole) 20 Mg Cap, 20 MG PO DAILY, (Reported) Prednisone (Prednisone) 5 Mg Bib, 5 MG PO ASDIRECTED 4 tablets for 4 days; followed by 3 tablets for 3 days, followed by 2 tablets for 2 days, then 1 tablet for 1 day. Rosuvastatin (Crestor) 10 Mg Tab, 10 MG PO QHS, (Reported) Salmeterol/Fluticasone (Advair Diskus 500-50 Mcg/Dose) 28 Puff/Inhaler Aerp, 1 PUFF INH BID, (Reported) Sertraline Hcl (Zoloft) 50 Mg Tab, 50 MG PO DAILY, (Reported) Tamsulosin Hydrochloride (Flomax) 0.4 Mg Cap, 0.4 MG PO QHS, (Reported) Trazodone HCl (Trazodone HCl) 100 Mg Tab, 100 MG PO QPM Scheduled PRN Acetaminophen (Acetaminophen) 325 Mg Tab, 650 MG PO Q4H PRN for PAIN, (Reported) Albuterol/Ipratropium (Combivent Respimat 20-100 Mcg/Act) 1 Aer Aer, 1 PUFF INH QID PRN for SHORTNESS OF BREATH, (Reported) Albuterol/Ipratropium (Ipratropium Dwarf/Albut 0.5-2.5 (3) mg/3Ml) 1 Sudhir Sudhir, 1 SUDHIR INH QID PRN for SHORTNESS OF BREATH, (Reported) Alprazolam (Xanax) 0.25 Mg Tab, 0.25 MG PO TID PRN for ANXIETY, (Reported) Artificial Tears (Artificial Tears) 1.4 % Sudhir, 1 DROP OU QID PRN for DRY EYES, (Reported) Guaifenesin (Mucinex) 600 Mg Tab, 600 MG PO Q12H PRN for CONGESTION, (Reported) Allergies Coded Allergies: Sulfa Drugs (Verified Allergy, Intermediate, RASH, 12/01/18) Sulfa Drugs Cross Reactors (Verified Allergy, Intermediate, RASH, 12/01/18) BRANDON ARORA DO Dec 16, 2018 14:09
== END 2018-12-15 13:57 | disposition home or self-care (01) | DRG 190 ==
LOC: M ED 12:02 → EDBD 12:02 → M ED INP 14:33 → M MSPAV 16:13
PROVIDERS: ADMIT Internal Medicine; ATTEND Family Medicine
DX: J44.1 Chronic obstructive pulmonary disease with (acute) exacerbation (principal); J10.01 Influenza due to other identified influenza virus with the same other identified influenza virus pneumonia; I50.32 Chronic diastolic (congestive) heart failure; J96.11 Chronic respiratory failure with hypoxia; A04.72 Enterocolitis due to Clostridium difficile, not specified as recurrent; I13.0 Hypertensive heart and chronic kidney disease with heart failure and stage 1 through stage 4 chronic kidney disease, or unspecified chronic kidney disease; J44.0 Chronic obstructive pulmonary disease with (acute) lower respiratory infection; N18.3 Chronic kidney disease, stage 3 (moderate); I48.0 Paroxysmal atrial fibrillation; F32.9 Major depressive disorder, single episode, unspecified; E11.9 Type 2 diabetes mellitus without complications; E78.5 Hyperlipidemia, unspecified; I25.2 Old myocardial infarction; Z95.1 Presence of aortocoronary bypass graft; J84.10 Pulmonary fibrosis, unspecified; K57.30 Diverticulosis of large intestine without perforation or abscess without bleeding; R91.8 Other nonspecific abnormal finding of lung field; Z79.4 Long term (current) use of insulin; Z79.899 Other long term (current) drug therapy; Z79.82 Long term (current) use of aspirin; Z88.2 Allergy status to sulfonamides; F41.9 Anxiety disorder, unspecified; G47.00 Insomnia, unspecified; Z87.891 Personal history of nicotine dependence

== ENCOUNTER → 2018-12-21 | Outpatient (REF) | payer MEDICARE ==
[~2018-12-21] MED LIST changes: +LIDO5TD TOP; +PRED5PAK PO; +RISATAB3 PO
[2018-12-21 19:38] LABS: BASO % 0.1 % (0.0-1.0); EOS % 0.3 % (0.0-3.0); HEMATOCRIT 28.6 % (42.0-52.0); HEMOGLOBIN 8.8 g/dl (13.5-17.5); LYMPH # 0.4 10^3/uL (1.5-4.5); LYMPH % 4.4 % (24.0-44.0); MEAN CORPUSCULAR HEMOGLOBIN 28.9 pg (27.0-33.0); MEAN CORPUSCULAR HGB CONC 30.8 g/dl (32.0-36.5); MEAN CORPUSCULAR VOLUME 93.8 fl (80.0-96.0); MONO # 0.5 10^3/uL (0.0-0.8); NEUTROPHILS # 8.3 10^3/uL (1.8-7.7); NEUTROPHILS % 87.8 % (36.0-66.0); PLATELET COUNT, AUTOMATED 202 10^3/uL (150-450); RED BLOOD COUNT 3.05 10^6/uL (4.30-6.10); WHITE BLOOD COUNT 9.4 10^3/uL (4.0-10.0)
[2018-12-21 19:44] LABS: ALBUMIN 2.8 GM/DL (3.2-5.2); CALCIUM LEVEL 8.4 MG/DL (8.8-10.2); CREATININE FOR GFR 1.93 MG/DL (0.70-1.30); GLOMERULAR FILTRATION RATE 36.3 (>42); PHOSPHORUS LEVEL 3.9 MG/DL (2.5-4.9); POTASSIUM SERUM 4.5 MEQ/L (3.5-5.1)
== END ==
LOC: M SFHCADAM 11:30
PROVIDERS: ATTEND Physician Assistant Medical
DX: I50.32 Chronic diastolic (congestive) heart failure (principal); D63.8 Anemia in other chronic diseases classified elsewhere; R19.5 Other fecal abnormalities
CPT/HCPCS: 80069; 85025; G0463

== ENCOUNTER 2018-12-28 13:07 | Inpatient (IN) | payer MEDICARE ==
[~2018-12-28] VITALS: Ht 167.6 cm; Wt 75.0 kg
[2018-12-28 14:00] LABS: EOS % 0.4 % (0.0-3.0); HEMATOCRIT 26.3 % (42.0-52.0); LYMPH # 0.4 10^3/uL (1.5-4.5); LYMPH % 4.9 % (24.0-44.0); MEAN CORPUSCULAR HEMOGLOBIN 27.6 pg (27.0-33.0); MEAN CORPUSCULAR HGB CONC 30.4 g/dl (32.0-36.5); MEAN CORPUSCULAR VOLUME 90.7 fl (80.0-96.0); MONO # 0.5 10^3/uL (0.0-0.8); MONO % 6.9 % (0.0-5.0); NEUTROPHILS # 6.4 10^3/uL (1.8-7.7); NEUTROPHILS % 86.3 % (36.0-66.0); PLATELET COUNT, AUTOMATED 351 10^3/uL (150-450); WHITE BLOOD COUNT 7.4 10^3/uL (4.0-10.0)
[2018-12-28 14:29] LABS: BLOOD UREA NITROGEN 47 MG/DL (7-18); CALCIUM LEVEL 7.8 MG/DL (8.8-10.2); CARBON DIOXIDE LEVEL 22 MEQ/L (21-32); CHLORIDE LEVEL 101 MEQ/L (98-107); CPK CREATINE PHOSPHOKINASE 109 U/L (39-308); CREATININE FOR GFR 1.25 MG/DL (0.70-1.30); GLOMERULAR FILTRATION RATE 59.9 (>42); GLUCOSE, FASTING 78 MG/DL (70-100); MB/CK RELATIVE INDEX 3.39 (< OR =4); NT-PRO BNP 3562 PG/ML (<450); POTASSIUM SERUM 4.1 MEQ/L (3.5-5.1); SODIUM LEVEL 134 MEQ/L (136-145); TROPONIN I < 0.02 NG/ML (< 0.10)
[2018-12-28] MEDS ORDERED: FUROSEMIDE 40 MG/4 ML VIAL (J1940) IV ONE (14:30)
[2018-12-28] MEDS ORDERED: RISATAB3 PO (14:42)
[2018-12-28] MEDS ORDERED: TRAZ-163 PO (14:42)
[2018-12-28] MEDS ORDERED: POLYVINYL ALCOHOL OPHTH SOLN 15 ML(LIQUITEARS) OU PRN (16:15)
[2018-12-28] MEDS ORDERED: DEXTROSE 50% 50 ML SYRINGE IV PRN (16:30)
[2018-12-28] MEDS ORDERED: GLUCOSE 4 GM CHEW TABLET PO PRN (16:30)
[2018-12-28] MEDS ORDERED: GLUCAGON FOR INJ 1 MG VIAL (J1610) SC PRN (16:30)
[2018-12-28 16:49] LABS: ALBUMIN 2.2 GM/DL (3.2-5.2); ALT/SGPT 20 U/L (12-78); BILIRUBIN,DIRECT 0.2 MG/DL (0.0-0.2); BILIRUBIN,TOTAL 0.7 MG/DL (0.2-1.0); TOTAL PROTEIN 6.3 GM/DL (6.4-8.2)
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
[2018-12-28] MEDS: ACETAMINOPHEN TAB 650MG DOSE (2X325MG) PO PRN (18:41)
--- NOTE | 2018-12-28 19:10 | ECGEPIP ---
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
--- NOTE | 2018-12-28 19:11 | REP ---
Portable chest, 01:48 p.m., single AP view, the patient upright: Comparisons are the recent prior study of 12/07/2018 and a remote study of 04/07/2017. There is chronic effacement left costophrenic angle compatible with pleural adhesion. There are chronic curvilinear densities inferiorly in the left lung compatible with scarring. The interstitium is diffusely coarsened compatible with interstitial infiltrates. There is no right pleural effusion. Cardiac size is upper normal for portable positioning. There are sternotomy wires, unchanged from both prior studies. Impression: Probable interstitial infiltrates. Other chronic changes as described. Electronically Signed by Zachary Nguyen MD 12/28/2018 07:02 P
[2018-12-28] MEDS: HumaLOG INSULIN (NovoLOG) PER UNIT SC SCH ×2 (20:43→23:13)
[2018-12-28] MEDS: IPRATROPIUM 0.5MG/ALBUTEROL 2.5MG INH SOL UD 3ML (DUONEB)(J7620) NEB SCH (20:49)
[2018-12-28 22:57] LABS: CPK CREATINE PHOSPHOKINASE 49 U/L (39-308); TROPONIN I < 0.02 NG/ML (< 0.10)
[2018-12-28] MEDS: DOCUSATE SODIUM 100 MG CAP PO SCH (23:11)
[2018-12-28] MEDS: ROSUVASTATIN 10 MG TAB (CRESTOR) PO SCH (23:12)
[2018-12-28] MEDS: TAMSULOSIN 0.4 MG CAP PO SCH (23:12)
[2018-12-28] MEDS: LISINOPRIL 10 MG TAB PO SCH (23:12)
[2018-12-28] MEDS: OMEGA-3 1000MG CAPSULE PO SCH (23:12)
[2018-12-28] MEDS: ACETAMINOPHEN 500 MG TAB PO SCH (23:12)
[2018-12-28] MEDS: APIXABAN 5 MG TAB (ELIQUIS) PO SCH (23:12)
[2018-12-28] MEDS: LATANOPROST 0.005% OPHTH SOLN 2.5 ML OU SCH (23:13)
[2018-12-28] MEDS: FUROSEMIDE 40 MG/4 ML VIAL (J1940) IV SCH (23:48)
[2018-12-29] MEDS: IPRATROPIUM 0.5MG/ALBUTEROL 2.5MG INH SOL UD 3ML (DUONEB)(J7620) NEB SCH ×4 (02:01→20:16)
[2018-12-29] MEDS: HumaLOG INSULIN (NovoLOG) PER UNIT SC SCH ×4 (08:00→21:00)
[2018-12-29] MEDS ORDERED: VANCOMYCIN HCL 1,000 MG, VIAL MATE ADAPTER 1 EACH in D5W 250 ML IV ONE (08:00)
[2018-12-29 08:07] LABS: HEMATOCRIT 26.5 % (42.0-52.0); HEMOGLOBIN 8.1 g/dl (13.5-17.5); MEAN CORPUSCULAR HEMOGLOBIN 27.6 pg (27.0-33.0); MEAN CORPUSCULAR HGB CONC 30.6 g/dl (32.0-36.5); MEAN CORPUSCULAR VOLUME 90.4 fl (80.0-96.0); PLATELET COUNT, AUTOMATED 353 10^3/uL (150-450); RED BLOOD COUNT 2.93 10^6/uL (4.30-6.10); WHITE BLOOD COUNT 7.1 10^3/uL (4.0-10.0)
[2018-12-29 08:34] LABS: BLOOD UREA NITROGEN 35 MG/DL (7-18); CARBON DIOXIDE LEVEL 27 MEQ/L (21-32); CHLORIDE LEVEL 101 MEQ/L (98-107); CPK CREATINE PHOSPHOKINASE 32 U/L (39-308); CREATININE FOR GFR 1.18 MG/DL (0.70-1.30); GLOMERULAR FILTRATION RATE > 60.0 (>42); GLUCOSE, FASTING 99 MG/DL (70-100); MAGNESIUM LEVEL 1.9 MG/DL (1.8-2.4); MB/CK RELATIVE INDEX 4.38 (< OR =4); POTASSIUM SERUM 3.2 MEQ/L (3.5-5.1); SODIUM LEVEL 137 MEQ/L (136-145); TROPONIN I < 0.02 NG/ML (< 0.10)
[2018-12-29] MEDS: FERROUS SULFATE 325MG TAB PO SCH (08:34)
[2018-12-29] MEDS: APIXABAN 5 MG TAB (ELIQUIS) PO SCH ×2 (08:34→21:30)
[2018-12-29] MEDS: ASPIRIN 81 MG ENTERIC TAB PO SCH (08:35)
[2018-12-29] MEDS: SERTRALINE HCL 50 MG TAB PO SCH (08:35)
[2018-12-29] MEDS: OMEGA-3 1000MG CAPSULE PO SCH ×2 (08:35→23:43)
[2018-12-29] MEDS: OMEPRAZOLE 20 MG CAP PO SCH (08:35)
[2018-12-29] MEDS: DOCUSATE SODIUM 100 MG CAP PO SCH ×2 (08:35→21:31)
[2018-12-29] MEDS ORDERED: VANCOMYCIN HCL 500 MG in D5W MINI-BAG PLUS 100 ML IV ONE ×2 (09:00→10:00)
[2018-12-29] MEDS ORDERED: POTASSIUM CHLORIDE 10 MEQ SR TABLET PO ONE (11:00)
[2018-12-29] MEDS: ACETAMINOPHEN TAB 650MG DOSE (2X325MG) PO PRN ×2 (11:41→18:47)
[2018-12-29] MEDS: ALPRAZolam 0.25 MG TAB PO PRN ×2 (11:41→23:43)
--- NOTE | 2018-12-29 11:46 | IPNPDOC ---
Subjective Date Seen The patient was seen on 12/29/18. Subjective Chief Complaint/HPI Patient lying in ER interm bed as I entered the room. He reports continued SOB. He denies cough or sputum. He was asking when he would be transferred to the floor Constitutional: Denies: Chills, Fever Pulmonary: Reports: Dyspnea; Denies: Cough, Pleuritic Chest Pain Cardiovascular: Reports: Edema; Denies: Chest Pain, Palpitations, Orthopnea Gastrointestinal: Reports: Diarrhea; Denies: Nausea, Vomiting, Abdominal Pain, Melena, Hematochezia Psych: Reports: Mood Normal Objective Physical Examination General Exam: Positive: Alert, No Acute Distress Neck Exam: Positive: Supple; Negative: JVD Chest Exam: Positive: Rales (Noted throughout ), Rhonchi (noted throughout ), Other (He had crepitations on moderate palpation over some of his right mid- thorasic ribs. This is clinically c/w rib fractures.) Heart Exam: Positive: Irregular Rhythm Abdomen Exam: Positive: Normal bowel sounds, Soft; Negative: Tenderness, Hepatospenomegaly Extremity Exam: Positive: Edema (3+) Skin Exam: Positive: Nl turgor and temperature; Negative: Rash Psych Exam: Positive: Mental status NL Assessment /Plan Problems (1) Diastolic CHF, chronic Status: Acute Response to Treatment: Stable Problem Text: 12/29/18: Started on Lasix 40mg IV q 12 hours with a net negative of 2L, 1800 cc fluid restriction Chest Xray Impression: Probable interstitial infiltrates. (2) Diarrhea Status: Acute Problem Text: 12/29/18: Patient with hx of c-diff at his previously hospitaliz ation about approx one month ago. GI panel pending. (3) Hypokalemia Status: Acute Problem Text: 12/29/18: K+ 3.2. Replaced with K+ 40 meq x 1 today, repeat K+ level this afternoon. We will start K+ 40meq po q day and monitor (4) Chest wall pain Status: Acute Discussed With: Nurse, Patient Problem Specific Plan: Repeat Tests Problem Text: He was complaining of chest pain. On examination he has tenderness on palpation over the R chest wall with increased "buoyancy" of the ribs and mild crepitations noted. He reports that Sharon Larson R-PAC told him he had some rib fractures after a fall last week, but I don't see any radiographic documentation of this. I will order a right rib series for further evaluation. (5) CKD (chronic kidney disease), stage III Status: Chronic Response to Treatment: Stable Problem Text: 12/29/18: baseline Cre~1.6-1.7, GFR ~36-45. Today Cre 1.18, GFR >60, this is most likely d/t his dilutional status. We will monitor (6) Atrial fibrillation Status: Chronic Response to Treatment: Stable Problem Text: 12/29/18: Rate controlled on Bisoprolol 5mg daily. Currently on Eliquis 5 mg po bid (7) DM2 (diabetes mellitus, type 2) Status: Chronic Response to Treatment: Stable Problem Text: 12/29/18: Managed with Lantus 22 units q hs and Humalog sliding scale outpatient. He is currently being covered with mealtime insulin only. He is not NPO, but his fasting BGs have been 78, 99 and he has only required 2 units of coverage. We will monitor and make adjustments in regimen accordingly. Plan/VTE VTE Prophylaxis Ordered?: Yes (Eliquis 5mg bid ) Plan Family Medicine Attending Note: I saw and examined Mr. Cruz, discussed with Cristin Dawn, DNP agree with her note as documented. Mr. Cruz is already doing well with diuresis today. He reports that he misunderstood instructions and discharge from the hospital when he was last in. He understood that he was supposed to increase his fluid intake to stave off dehydration from his diarrhea. Unfortunately this put him into congestive heart failure. I will order a dedicated rib series to evaluate his right ribs too. (meat wrapper) VS, I&O, 24H, Fishbone Vital Signs/I&O Vital Signs Date Time Temp Pulse Resp B/P (MAP) Pulse Ox O2 Delivery O2 Flow Rate FiO2 12/29/18 10:28 109 19 101/54 (70) 97 Nasal Cannula 2.0 12/29/18 06:30 98.2 I&O- Last 24 Hours up to 6 AM 12/29/18 06:00 Output Total 950 ml Balance -950 ml Laboratory Data 24H LABS Laboratory Tests 2 12/28/18 13:46: Immature Granulocyte % (Auto) 1.5, White Blood Count 7.4, Red Blood Count 2.90L, Hemoglobin 8.0L, Hematocrit 26.3L, Mean Corpuscular Volume 90.7, Mean Corpuscular Hemoglobin 27.6, Mean Corpuscular Hemoglobin Concent 30.4L, Red Cell Distribution Width 20.2H, Platelet Count 351, Neutrophils (%) (Auto) 86.3H, Lymphocytes (%) (Auto) 4.9L, Monocytes (%) (Auto) 6.9H, Eosinophils (%) (Auto) 0.4, Basophils (%) (Auto) 0.0, Neutrophils # (Auto) 6.4, Lymphocytes # (Auto) 0.4L, Monocytes # (Auto) 0.5, Eosinophils # (Auto) 0.0, Basophils # (Auto) 0.0, Nucleated Red Blood Cells % (auto) 0.0, Anion Gap 11, Glomerular Filtration Rate 59.9, Lactic Acid Level 0.9, Calcium Level 7.8L, Aspartate Amino Transf (AST/SGOT) 36, Alanine Aminotransferase (ALT/SGPT) 20, Alkaline Phosphatase 50, Total Bilirubin 0.7, Direct Bilirubin 0.2, Total Creatine Kinase 109, Creatine Kinase MB 4.0H, Creatine Kinase MB Relative Index 3.39, Troponin I < 0.02, GO-Hpj-N-Type Natriuretic Peptide 3562H, Total Protein 6.3L, Albumin 2.2L, Albumin/Globulin Ratio 0.54L 12/28/18 20:32: Bedside Glucose (Misc Panel) 143H 12/28/18 22:28: Total Creatine Kinase 49, Creatine Kinase MB 2.0, Creatine Kinase MB Relative Index 4.90H, Troponin I < 0.02 12/29/18 07:26: Bedside Glucose (Misc Panel) 93 12/29/18 07:51: Nucleated Red Blood Cells % (auto) 0.0, Anion Gap 9, Glomerular Filtration Rate > 60.0, Blood Urea Nitrogen 35H, Creatinine 1.18, Sodium Level 137, Potassium Level 3.2#L, Chloride Level 101, Carbon Dioxide Level 27, Calcium Level 8.0L, Total Creatine Kinase 32L, Magnesium Level 1.9, Creatine Kinase MB 1.0, Creatine Kinase MB Relative Index 4.38H, Troponin I < 0.02 CBC/BMP Laboratory Tests 12/28/18 13:46 Red Blood Count 2.90 L, Mean Corpuscular Volume 90.7, Mean Corpuscular Hemoglobin 27.6, Mean Corpuscular Hemoglobin Concent 30.4 L, Red Cell Distribution Width 20.2 H, Neutrophils (%) (Auto) 86.3 H, Lymphocytes (%) (Auto) 4.9 L, Monocytes (%) (Auto) 6.9 H, Eosinophils (%) (Auto) 0.4, Basophils (%) (Auto) 0.0, Neutrophils # (Auto) 6.4, Lymphocytes # (Auto) 0.4 L, Monocytes # (Auto) 0.5, Eosinophils # (Auto) 0.0, Basophils # (Auto) 0.0 12/29/18 07:51 Red Blood Count 2.93 L, Mean Corpuscular Volume 90.4, Mean Corpuscular Hemoglobin 27.6, Mean Corpuscular Hemoglobin Concent 30.6 L, Red Cell Distribution Width 20.0 H, Calcium Level 8.0 L, Total Creatine Kinase 32 L Microbiology Microbiology 12/28/18 Blood Culture - Preliminary, Resulted 12/28/18 Blood Culture - Preliminary, Resulted CRISTIN DAWN Dec 29, 2018 11:26 am Mervin Hodge MD Dec 29, 2018 9:11 pm
[2018-12-29] MEDS: BISOPROLOL FUMARATE 5 MG TAB PO SCH (12:00)
[2018-12-29] MEDS: LISINOPRIL 10 MG TAB PO SCH ×2 (12:00→21:31)
[2018-12-29 13:43] VITALS: BP 144/66
[2018-12-29] MEDS: FUROSEMIDE 40 MG/4 ML VIAL (J1940) IV SCH ×2 (14:06→23:44)
[2018-12-29] MEDS: FINASTERIDE 5 MG TAB PO SCH (14:06)
[2018-12-29] MEDS: FENOFIBRATE 145 MG TAB (TRICOR) PO SCH (14:06)
[2018-12-29] MEDS ORDERED: SLF 3 ML SYR IV PRN (15:30)
--- NOTE | 2018-12-29 15:45 | PHACANCOPD ---
PHARMACY VANCOMYCIN DOSING Pt Demographics Demographics Patient Age:73 , Weight:75.600 , Gender: male Adjusted Body Weight Date: 12/29/18, Adjusted Body Weight: 68.52Kg Events Past 24 Hours Events Past 24 Hours: NO: Dialysis, Diuretic Therapy, Change in CrCl, Fever, Elevation in WBC, Pending Diagnostics, Pending Procedures, Other Vancomycin Vancomycin indication: EMPERIC TREATMENT-UNKNOWN SOURCE Vancomycin Target Ranges: 15-20 mcg/ml Vancomycin Load Y/N: Yes Load Dose Date Time Vancomycin Load Dose: 1500MG Date: 12/29/18 Time: 0800 Vancomycin Dose Date: 12/29/18. Current Vancomycin Dose: [1000MG Q18H] Intermittent Dosing?: No Labs Labs Item Value Date Time White Blood Count 7.4 10^3/uL 12/28/18 1346 White Blood Count 7.1 10^3/uL 12/29/18 0751 Creatinine 1.25 MG/DL 12/28/18 1346 Creatinine 1.18 MG/DL 12/29/18 0751 Albumin 2.2 GM/DL L 12/28/18 1346 Blood Urea Nitrogen 47 MG/DL H 12/28/18 1346 Vital Signs Label Value Date Time Patient Temperature 99.9 degrees F 12/29/18 1253 Temperature Source Temporal 12/29/18 1253 Patient Temperature 97.4 degrees F 12/29/18 1343 Temperature Source Temporal 12/29/18 1343 Pulse 90 12/29/18 1343 Pulse 98 12/29/18 1253 Pulse 94 12/29/18 1215 Pulse 92 12/29/18 1200 Pulse 87 12/29/18 1200 Pulse 94 12/29/18 1145 Respiratory Rate 18 bpm 12/29/18 1200 Respiratory Rate 19 bpm 12/29/18 1253 Respiratory Rate 20 bpm 12/29/18 1343 Blood Pressure Assessment 144/66 (92) 12/29/18 1343 Blood Pressure Assessment 107/51 (69) 12/29/18 1253 Blood Pressure Assessment 98/64 12/29/18 1200 Blood Pressure Assessment 117/53 (74) 12/29/18 1200 Blood Pressure Assessment 98/64 12/29/18 1200 Micro Microbiology 12/28/18 Blood Culture - Preliminary, Resulted 12/28/18 Blood Culture - Preliminary, Resulted 12/29/18 MRSA Screen, Received Pending Creatinine Clearance Date:12/29/18. Creatinine Clearance: 46 ML/MIN Pending Labs MRSA SCREEN PENDING, BLOOD CULTURE PENDING Assessment and Plan Maintaining Current Dose?: Yes Reason for dose change: No Dose Change Pharmacist Note Pharmacist Note Date: 12/29/18. Pharmacist note: PATIENT PRESENTED WITH WORSENING SHORTNESS OF BREATH. PHARMACY VANCOMYCIN CONS ULT REQUESTED. MRSA SCREEN PENDING. PRELIMINARY BLOOD CULTURE SHOWED GRAM POSITIVE COCCI IN PAIRS AND CLUSTERS. CURRENT CRCL IS 46 ML/MIN. BASED ON PATIENT'S HISTORY OF IV VANCOMYCIN USAGE HERE AT [facility] PT WAS GIVEN A LOADING DOSE OF 1500MG IV VANCOMYCIN @0800 AND THEN WILL RECEIVE MAINTENANCE DOSAGE OF 1G IV VANCOMYCIN Q18H. I HAVE SCHEDULED A TROUGH FOR 12/30/18 AT 1900 BEFORE THE THIRD DOSE. WILL CONTINUE TO MONITOR THE PATIENT AND ADJUST DOSE ACCORDINGLY. DEIDRA MORROW PHARMACY Dec 29, 2018 15:45
[2018-12-29 16:00] VITALS: BP 133/60
[2018-12-29 16:05] VITALS: BP 133/60
--- NOTE | 2018-12-29 16:46 | ECGEPIP ---
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
[2018-12-29 20:00] VITALS: BP 112/54
[2018-12-29] MEDS: ACETAMINOPHEN 500 MG TAB PO SCH (21:29)
[2018-12-29] MEDS: TAMSULOSIN 0.4 MG CAP PO SCH (21:31)
[2018-12-29] MEDS: ROSUVASTATIN 10 MG TAB (CRESTOR) PO SCH (21:31)
[2018-12-29] MEDS: SLF 3 ML SYR IV SCH (21:32)
[2018-12-29] MEDS: LATANOPROST 0.005% OPHTH SOLN 2.5 ML OU SCH (23:43)
[2018-12-30] VITALS (7 sets, daily range): BP systolic 107–135; BP diastolic 56–67
[2018-12-30] MEDS ORDERED: VANCOMYCIN HCL 1,000 MG, VIAL MATE ADAPTER 1 EACH in D5W 250 ML IV SCH (02:00)
[2018-12-30] MEDS: IPRATROPIUM 0.5MG/ALBUTEROL 2.5MG INH SOL UD 3ML (DUONEB)(J7620) NEB SCH ×5 (03:53→23:57)
[2018-12-30] MEDS: SLF 3 ML SYR IV SCH ×3 (05:26→22:00)
[2018-12-30 05:35] LABS: HEMATOCRIT 28.2 % (42.0-52.0); HEMOGLOBIN 8.5 g/dl (13.5-17.5); MEAN CORPUSCULAR HEMOGLOBIN 27.2 pg (27.0-33.0); MEAN CORPUSCULAR HGB CONC 30.1 g/dl (32.0-36.5); MEAN CORPUSCULAR VOLUME 90.4 fl (80.0-96.0); PLATELET COUNT, AUTOMATED 359 10^3/uL (150-450); RED BLOOD COUNT 3.12 10^6/uL (4.30-6.10); WHITE BLOOD COUNT 6.6 10^3/uL (4.0-10.0)
[2018-12-30 05:55] LABS: CALCIUM LEVEL 8.1 MG/DL (8.8-10.2); CREATININE FOR GFR 1.35 MG/DL (0.70-1.30); GLOMERULAR FILTRATION RATE 54.8 (>42); MAGNESIUM LEVEL 2.1 MG/DL (1.8-2.4); POTASSIUM SERUM 3.8 MEQ/L (3.5-5.1)
[2018-12-30] MEDS: HumaLOG INSULIN (NovoLOG) PER UNIT SC SCH ×4 (07:30→21:00)
--- NOTE | 2018-12-30 08:17 | REP ---
Left ribs for views: No rib fractures are identified. PA chest single view: Comparisons are 04/07/2017 and 12/28/2018. There is no pneumothorax, hemothorax or pulmonary contusion. There is chronic effacement of the left costophrenic angle, possibly pleural adhesions. Lung schuster are clear. Cardiac size is normal. There are sternotomy wires, unchanged. Electronically Signed by Zachary Nguyen MD 12/30/2018 08:09 A
--- NOTE | 2018-12-30 08:39 | IPNPDOC ---
Subjective Date Seen The patient was seen on 12/30/18. Subjective Chief Complaint/HPI Pt this morning reports that he is feeling better. His breathing is better today than yest. He does have a cough, but no sputum production. He slept well last night. He has chronic L shoulder pain. He fell shortly after his last hospital d/c landing on his R chest, he states that the pain there has nearly resolved, does not impede his breathing. He has had no loose stools since coming to the hospital. He states that he thinks it was his diet as he was eating a lot of chili. He states that he would like to go to rehab from the hospital, he does not want to go back home. General: Denies: Fatigue Constitutional: Denies: Chills, Fever Pulmonary: Reports: Dyspnea, Cough Cardiovascular: Denies: Chest Pain, Palpitations Gastrointestinal: Denies: Nausea, Vomiting, Abdominal Pain, Diarrhea Musculoskeletal: Reports: Shoulder Pain (chronic L shoulder pain) Neurological: Reports: Weakness; Denies: Numbness Psych: Reports: Mood Normal Objective Physical Examination General Exam: Positive: Alert, No Acute Distress ENT Exam: Positive: Mucous membr. moist/pink Neck Exam: Positive: Supple; Negative: JVD Chest Exam: Positive: Rales (Bibasilar), Rhonchi (scattered throughout, slight improvement with cough) Heart Exam: Positive: Rate Normal, Irregular Rhythm Abdomen Exam: Positive: Normal bowel sounds, Soft; Negative: Tenderness, Hepatospenomegaly Extremity Exam: Positive: Edema (2 + pitting pedal edema, slightly less pretibial) Skin Exam: Positive: Nl turgor and temperature; Negative: Rash Psych Exam: Positive: Mental status NL Assessment /Plan Problems (1) Diastolic CHF, chronic Status: Acute Response to Treatment: Stable Problem Text: 12/30 Lasx IV q12h, I + Os appear to be inaccurate, spoke to nursing, slight bump in Scr, monitor, anticipate changing to HD Lasix tomorrow, 40 mg daily. Enc BARRON diet. 12/29/18: Started on Lasix 40mg IV q 12 hours with a net negative of 2L, 1800 cc fluid restriction Chest Xray Impression: Probable interstitial infiltrates. (2) Enterococcus faecalis infection Status: Acute Problem Text: Both blood cx are positive for G+ bacteria. Last admission he had an E. faecalis bacteremia. It is VERY likely that the bacteria in his blood this time is the same. The fact that her has a persistent bacteremia leads to concerns for either a large and persistent colonic lesion ( e.g dysplastic polyp, or an endocarditis). Dr. Rudolph was consulted and has adjusted his abx while we clarify what is going on. (3) Diarrhea Status: Resolved Problem Text: 12/30 No recurrence of loose stools since admission. 12/29/18: Patient with hx of c-diff at his previously hospitalization about approx one month ago. GI panel pending. (4) Hypokalemia Status: Acute Problem Text: 12/30 K + 3.8, cont with daily replacement while on IV lasix. 12/29/18: K+ 3.2. Replaced with K+ 40 meq x 1 today, repeat K+ level this afternoon. We will start K+ 40meq po q day and monitor (5) Chest wall pain Status: Acute Response to Treatment: Improving Discussed With: Nurse, Patient Problem Specific Plan: Repeat Tests Problem Text: 12/30 I did NOT palpate crepitations today or last week in office, Xray Neg for fractures. 12/29 He was complaining of chest pain. On examination he has tenderness on palpation over the R chest wall with increased "buoyancy" of the ribs and mild crepitations noted. He reports that Zoey Gilbert, R-PAC told him he had some rib fractures after a fall last week, but I don't see any radiographic documentation of this. I will order a right rib series for further evaluation. (6) CKD (chronic kidney disease), stage III Status: Chronic Response to Treatment: Stable Problem Text: 12/30 Baseline Scr 1.6, today 1.35, cont with IV Lasix, monitor. 12/29/18: baseline Cre~1.6-1.7, GFR ~36-45. Today Cre 1.18, GFR >60, this is most likely d/t his dilutional status. We will monitor (7) Atrial fibrillation Status: Chronic Response to Treatment: Stable Problem Text: 12/29/18: Rate controlled on Bisoprolol 5mg daily. Currently on Eliquis 5 mg po bid (8) DM2 (diabetes mellitus, type 2) Status: Chronic Response to Treatment: Stable Problem Text: 12/29/18: Managed with Lantus 22 units q hs and Humalog sliding scale outpatient. He is currently being covered with mealtime insulin only. He is not NPO, but his fasting BGs have been 78, 99 and he has only required 2 units of coverage. We will monitor and make adjustments in regimen accordingly. Plan/VTE VTE Prophylaxis Ordered?: Yes (Eliquis 5mg bid ) Plan Therapy: PT Anticipated Discharge: Sub Acute Rehab (Rec STR at d/c.) Family Medicine Attending Note: I saw and examined Mr. Cruz, discussed with TIFFANIE Looney. Agree with her note as documented. His blood cultures are positive for E faecalis. Had a discussion with Dr. Rudolph today about how we might approach this. She has put some recommendations and orders on the chart. She has prescribed the antibiotics that are needed, at least until we get sensitivities back. 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) VS, I&O, 24H, Fishbone Vital Signs/I&O Vital Signs Date Time Temp Pulse Resp B/P (MAP) Pulse Ox O2 Delivery O2 Flow Rate FiO2 12/30/18 04:00 97.7 99 18 122/67 (85) 100 2.0 12/29/18 16:05 Nasal Cannula I&O- Last 24 Hours up to 6 AM 12/30/18 06:00 Intake Total 1680 ml Output Total 750 ml Balance 930 ml Laboratory Data 24H LABS Laboratory Tests 2 12/29/18 13:24: Bedside Glucose (Misc Panel) 284H 12/29/18 18:34: Bedside Glucose (Misc Panel) 334H 12/29/18 21:20: Bedside Glucose (Misc Panel) 231H 12/30/18 05:12: Nucleated Red Blood Cells % (auto) 0.0, Anion Gap 8, Glomerular Filtration Rate 54.8, Blood Urea Nitrogen 33H, Creatinine 1.35H, Sodium Level 134L, Potassium Level 3.8, Chloride Level 97L, Carbon Dioxide Level 29, Calcium Level 8.1L, Magnesium Level 2.1 CBC/BMP Laboratory Tests 12/29/18 16:45 12/30/18 05:12 Red Blood Count 3.12 L, Mean Corpuscular Volume 90.4, Mean Corpuscular Hemoglobin 27.2, Mean Corpuscular Hemoglobin Concent 30.1 L, Red Cell Distribution Width 19.9 H, Calcium Level 8.1 L Microbiology Microbiology 12/28/18 Blood Culture - Preliminary, Resulted 12/28/18 Blood Culture - Preliminary, Resulted 12/29/18 MRSA Screen, Received Pending ZOEY GILBERT PA-C Dec 30, 2018 8:39 am Mervin Hodge MD Dec 31, 2018 6:40 am
[2018-12-30] MEDS: DOCUSATE SODIUM 100 MG CAP PO SCH ×2 (09:33→22:01)
[2018-12-30] MEDS: SERTRALINE HCL 50 MG TAB PO SCH (09:33)
[2018-12-30] MEDS: POTASSIUM CHLORIDE 10 MEQ SR TABLET PO SCH (09:33)
[2018-12-30] MEDS: APIXABAN 5 MG TAB (ELIQUIS) PO SCH ×2 (09:33→22:00)
[2018-12-30] MEDS: ASPIRIN 81 MG ENTERIC TAB PO SCH (09:33)
[2018-12-30] MEDS: OMEPRAZOLE 20 MG CAP PO SCH (09:33)
[2018-12-30] MEDS: FERROUS SULFATE 325MG TAB PO SCH (09:34)
[2018-12-30] MEDS: OMEGA-3 1000MG CAPSULE PO SCH ×2 (09:34→22:11)
[2018-12-30] MEDS: ALPRAZolam 0.25 MG TAB PO PRN (11:21)
[2018-12-30] MEDS: FINASTERIDE 5 MG TAB PO SCH (11:21)
[2018-12-30] MEDS: BISOPROLOL FUMARATE 5 MG TAB PO SCH (11:24)
[2018-12-30] MEDS: FENOFIBRATE 145 MG TAB (TRICOR) PO SCH (11:24)
[2018-12-30] MEDS: LISINOPRIL 10 MG TAB PO SCH ×2 (11:25→22:01)
[2018-12-30] MEDS: FUROSEMIDE 40 MG/4 ML VIAL (J1940) IV SCH (11:26)
[2018-12-30] MEDS: cefTRIAXone SOD 2 GM in D5W MINI-BAG PLUS 50 ML IV SCH (17:28)
[2018-12-30 17:34] LABS: C REACTIVE PROTEIN QUANTITATIV 25.6 MG/DL (0.00-0.30)
--- NOTE | 2018-12-30 18:16 | REP ---
Left shoulder three views: There are no comparisons. There is demineralization. The acromioclavicular glenohumeral articulations are unremarkable. There is no fracture or dislocation. There are no calcifications or foreign bodies. Impression: Demineralization, otherwise negative left shoulder. Electronically Signed by Zachary Nguyen MD 12/30/2018 06:07 P
[2018-12-30 18:24] LABS: ERYTHROCYTE SEDIMENTATION RATE > 140 mm/hr (0-20)
[2018-12-30] MEDS: AMPICILLIN SOD 2 GM in D5W MINI-BAG PLUS 100 ML IV SCH ×2 (18:24→22:12)
[2018-12-30] MEDS: ACETAMINOPHEN 500 MG TAB PO SCH (22:01)
[2018-12-30] MEDS: ROSUVASTATIN 10 MG TAB (CRESTOR) PO SCH (22:01)
[2018-12-30] MEDS: LATANOPROST 0.005% OPHTH SOLN 2.5 ML OU SCH (22:02)
[2018-12-30] MEDS: TAMSULOSIN 0.4 MG CAP PO SCH (22:11)
[2018-12-30] MEDS: VANCOMYCIN ORAL SOL 250MG/5ML ORAL SYRINGE PO SCH (22:12)
[2018-12-31] VITALS (7 sets, daily range): BP systolic 94–146; BP diastolic 48–70
[2018-12-31] MEDS: guaiFENesin ER 600 MG TAB PO PRN (01:01)
[2018-12-31] MEDS: FUROSEMIDE 40 MG/4 ML VIAL (J1940) IV SCH ×4 (01:01→23:57)
[2018-12-31] MEDS: AMPICILLIN SOD 2 GM in D5W MINI-BAG PLUS 100 ML IV SCH ×6 (01:02→22:37)
[2018-12-31] MEDS: ACETAMINOPHEN TAB 650MG DOSE (2X325MG) PO PRN ×2 (03:18→22:05)
[2018-12-31] MEDS: ALPRAZolam 0.25 MG TAB PO PRN (03:47)
[2018-12-31] MEDS: cefTRIAXone SOD 2 GM in D5W MINI-BAG PLUS 50 ML IV SCH ×2 (04:51→16:38)
[2018-12-31 05:04] LABS: HEMATOCRIT 22.9 % (42.0-52.0); MEAN CORPUSCULAR HEMOGLOBIN 27.5 pg (27.0-33.0); MEAN CORPUSCULAR HGB CONC 30.6 g/dl (32.0-36.5); MEAN CORPUSCULAR VOLUME 89.8 fl (80.0-96.0); PLATELET COUNT, AUTOMATED 323 10^3/uL (150-450); RED BLOOD COUNT 2.55 10^6/uL (4.30-6.10); WHITE BLOOD COUNT 5.3 10^3/uL (4.0-10.0)
[2018-12-31 05:34] LABS: CREATININE FOR GFR 1.57 MG/DL (0.70-1.30); GLOMERULAR FILTRATION RATE 46.1 (>42); MAGNESIUM LEVEL 2.1 MG/DL (1.8-2.4); POTASSIUM SERUM 4.3 MEQ/L (3.5-5.1)
[2018-12-31] MEDS: SLF 3 ML SYR IV SCH ×3 (05:56→20:13)
[2018-12-31] MEDS: IPRATROPIUM 0.5MG/ALBUTEROL 2.5MG INH SOL UD 3ML (DUONEB)(J7620) NEB SCH ×3 (07:22→20:37)
[2018-12-31] MEDS: HumaLOG INSULIN (NovoLOG) PER UNIT SC SCH ×4 (07:30→20:13)
--- NOTE | 2018-12-31 07:48 | ECHO ---
DATE OF PROCEDURE: 12/30/2018 DATE OF : 1945 AGE: 73 GENDER: Male HEIGHT: 66 inches WEIGHT: 171 pounds BODY SURFACE AREA: 1.88 m2 INPATIENT: PCU - Room 3214 REFERRING PHYSICIAN: JEWEL Cartwright INDICATION: Sepsis. MEASUREMENTS: 2-D Measurements: RV: 4.2 cm LV: 4.9 cm Septum: 1.2 cm Posterior wall: 1.2 cm Aortic root: 3.5 cm LA: 4.9 cm LVEF: 75% Doppler Measurements: AV: 2.34 m/s LVOT: 0.87 m/s LVOT diameter: 2.2 cm Mean AV gradient: 11 mmHg Dimensionless index: 0.37 MV - E 145 Early mitral deceleration time: 126 ms E prime: 6.6 E/E prime ratio: 19 PCWP: 27 mmHg PV: 1.0 m/s Pulmonary artery acceleration time: 85 ms RVSP: 55-60 mmHg IVC: 2.1 cm COMMENTS: Underlying atrial fibrillation with controlled ventricular response. Borderline concentric left ventricle hypertrophy with hyperkinetic wall motion. Moderately prominently dilated left atrium with Doppler evidence of an elevated mean left atrial pressure. At least mildly dilated right ventricle and mild to moderately dilated right atrium with normal wall motion and Doppler evidence of at least moderate to moderately severe pulmonary hypertension. Normal IVC size with adequate respiratory collapse in keeping with central venous pressure upper limits of normal. Mild calcific aortic stenosis with mild-moderate insufficiency. Normal aortic root size. Moderate mitral annular calcification without inflow tract obstruction, but moderate to moderately severe mitral insufficiency. Normal appearing tricuspid valve with moderate insufficiency. No apparent intracardiac mass or pericardial effusion. Comparing today's study with 12/07/2018, there did not appear to be a dramatic change. If endocarditis is seriously suspect, would recommend a transesophageal echocardiogram to further define valvular structure and function. [facility]
--- NOTE | 2018-12-31 08:55 | IPNPDOC ---
Subjective Date Seen The patient was seen on 12/31/18. Subjective Chief Complaint/HPI Nursing and Dr Grant at bedside. Pt with E faecalis + blood cultures, concern for endocarditis. Pt has had some hallucinations overnight, he is telling me about a girl trying to steal him away. He c/o L shoulder pain, the same as it always is. He is SOB, but this is no worse than yesterday. Slight cough, not really bringing anything up. General: Reports: Fatigue Constitutional: Denies: Chills, Fever Pulmonary: Reports: Dyspnea, Cough Cardiovascular: Denies: Chest Pain, Palpitations Gastrointestinal: Denies: Nausea, Vomiting, Diarrhea Musculoskeletal: Reports: Shoulder Pain (Chr L shoulder pain) Neurological: Reports: Weakness Psych: Reports: Mood Normal Objective Physical Examination General Exam: Positive: Alert, No Acute Distress ENT Exam: Positive: Mucous membr. moist/pink Neck Exam: Positive: Supple; Negative: JVD Chest Exam: Positive: Rales (Bibasilar), Rhonchi (scattered throughout, slight improvement with cough) Heart Exam: Positive: Rate Normal, Irregular Rhythm, Murmurs Abdomen Exam: Positive: Normal bowel sounds, Soft; Negative: Tenderness, Hepatospenomegaly Extremity Exam: Positive: Edema (1 + pitting pedal edema, slightly less pretibial) Skin Exam: Positive: Nl turgor and temperature; Negative: Rash Psych Exam: Positive: Mental status NL (alert and oriented x 3) Assessment /Plan Problems (1) Enterococcus faecalis infection Status: Acute Response to Treatment: Stable Discussed With: Nurse, Shipping And Receiving Associate, Patient Problem Specific Plan: Monitor Clinically Problem Text: 12/[address] Rudolph yesterday who called concerned regarding the pts prelim BC results, she was consulted for adjustment and recommendations regarding abx. Cardio has been consulted, Dr Grant has seen the patient. He plans to ANURAG probably later today. 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 Last admission he had an E. faecalis bacteremia. It is VERY likely that the bacteria in his blood this time is the same. The fact that her has a persistent bacteremia leads to concerns for either a large and persistent colonic lesion ( e.g dysplastic p olyp, or an endocarditis). Dr. Rudolph was consulted and has adjusted his abx while we clarify what is going on. (2) Anemia Status: Acute Response to Treatment: Worse Discussed With: Nurse, Shipping And Receiving Associate, Patient Problem Specific Plan: Monitor Clinically, Repeat Labs Problem Text: 2 units of pRBCs ordered, Lasix to be given between each unit. f/u labs ordered, stool OB, Fe, ferritin, B12 folate (3) Diastolic CHF, chronic Status: Acute Response to Treatment: Stable Discussed With: Nurse, Shipping And Receiving Associate, Patient Problem Text: 12/31 [facility] [place] Dr Grant has been consulted. Lasix IV 40 mg q12h, I remain unconvinced that his I & Os are accurate, listing 600 in yesterday and 1200 out. Cont to monitor, Scr increased to 1.5 today, baseline is 1.6-1.7, he will be getting 2 units of blood today and an order for Lasix 20 mg between each unit was placed. 12/30 Lasx IV q12h, I + Os appear to be inaccurate, spoke to nursing, slight bump in Scr, monitor, anticipate changing to HD Lasix tomorrow, 40 mg daily. Enc BARRON diet. 12/29/18: Started on Lasix 40mg IV q 12 hours with a net negative of 2L, 1800 cc fluid restriction Chest Xray Impression: Probable interstitial infiltrates. (4) Hypokalemia Status: Acute Response to Treatment: Improving Problem Text: 12/30 K + 3.8, cont with daily replacement while on IV lasix. 12/29/18: K+ 3.2. Replaced with K+ 40 meq x 1 today, repeat K+ level this afternoon. We will start K+ 40meq po q day and monitor (5) Chest wall pain Status: Acute Response to Treatment: Improving Discussed With: Nurse, Patient Problem Specific Plan: Repeat Tests Problem Text: 12/30 I did NOT palpate crepitations today or last week in office, Xray Neg for fractures. 12/29 He was complaining of chest pain. On examination he has tenderness on palpation over the R chest wall with increased "buoyancy" of the ribs and mild crepitations noted. He reports that Zoey Gilbert R-PAC told him he had some rib fractures after a fall last week, but I don't see any radiographic documentation of this. I will order a right rib series for further evaluation. (6) CKD (chronic kidney disease), stage III Status: Chronic Response to Treatment: Stable Problem Text: 12/31 Scr 1.5, baseline 1.6, monitor. 12/30 Baseline Scr 1.6, today 1.35, cont with IV Lasix, monitor. 12/29/18: baseline Cre~1.6-1.7, GFR ~36-45. Today Cre 1.18, GFR >60, this is most likely d/t his dilutional status. We will monitor (7) Atrial fibrillation Status: Chronic Response to Treatment: Stable Problem Text: 12/29/18: Rate controlled on Bisoprolol 5mg daily. Currently on El iquis 5 mg po bid (8) DM2 (diabetes mellitus, type 2) Status: Chronic Response to Treatment: Stable Problem Text: 12/29/18: Managed with Lantus 22 units q hs and Humalog sliding scale outpatient. He is currently being covered with mealtime insulin only. He is not NPO, but his fasting BGs have been 78, 99 and he has only required 2 units of coverage. We will monitor and make adjustments in regimen accordingly. (9) Diarrhea Status: Resolved Problem Text: 12/30 No recurrence of loose stools since admission. 12/29/18: Patient with hx of c-diff at his previously hospitalization about approx one month ago. GI panel pending. Plan/VTE VTE Prophylaxis Ordered?: Yes (Eliquis 5mg bid ) Plan Therapy: PT Anticipated Discharge: Sub Acute Rehab (Rec STR at d/c.) Family Medicine Attending Note: I saw and examined Mr. Cruz, discussed with TIFFANIE Looney. Agree with her note as documented. He is scheduled for a ANURAG today. He called both Zoey and myself into his room and was expressing that he is very tired of being sick and wants to become comfort measures only. We discussed this with him in detail. When it came down to actually signing the form to make this change, he hesitated and we will pursue current care. He does wish to be DNR. It is concerning that he dropped his hemoglobin today. Certainly there is concern because the anemia and his known vasculopathy. However there is additional concern given his history of multiple adenomas of the colon and his current persistent E. faecalis bacteremia. I'm concerned that there may be bleeding colonic lesion that is the access point for this bacteria into his vascular space. We will need to take these issues one at a time, but I don't think we should neglect pursuing further evaluation of his colon once he is appropriately stabilized from his acute conditions. 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) VS, I&O, 24H, Fishbone Vital Signs/I&O Vital Signs Date Time Temp Pulse Resp B/P (MAP) Pulse Ox O2 Delivery O2 Flow Rate FiO2 12/31/18 04:00 97.4 82 22 94/48 (63) 97 2.0 12/29/18 16:05 Nasal Cannula I&O- Last 24 Hours up to 6 AM 12/31/18 06:00 Intake Total 240 ml Output Total 1200 ml Balance -960 ml Laboratory Data 24H LABS Laboratory Tests 2 12/30/18 11:20: Bedside Glucose (Misc Panel) 355H 12/30/18 17:32: Bedside Glucose (Misc Panel) 265H 12/30/18 22:14: Bedside Glucose (Misc Panel) 230H 12/31/18 04:44: Nucleated Red Blood Cells % (auto) 0.0, Anion Gap 8, Glomerular Filtration Rate 46.1, Blood Urea Nitrogen 39H, Creatinine 1.57H, Sodium Level 137, Potassium Level 4.3, Chloride Level 101, Carbon Dioxide Level 28, Calcium Level 8.0L, Magnesium Level 2.1, VU-Qco-D-Type Natriuretic Peptide 4182H CBC/BMP Laboratory Tests 12/31/18 04:44 Red Blood Count 2.55 L, Mean Corpuscular Volume 89.8, Mean Corpuscular Hemoglobin 27.5, Mean Corpuscular Hemoglobin Concent 30.6 L, Red Cell Distribution Width 19.6 H, Calcium Level 8.0 L Microbiology Microbiology 12/31/18 Blood Culture, Received Pending 12/28/18 Blood Culture - Final, Complete Enterococcus Faecalis 12/28/18 Blood Culture - Final, Complete Enterococcus Faecalis 12/29/18 MRSA Screen - Final, Complete ZOEY GILBERT PA-C Dec 31, 2018 8:55 am Mervin Hodge MD Jan 01, 2019 10:38 pm
[2018-12-31] MEDS: POTASSIUM CHLORIDE 10 MEQ SR TABLET PO SCH (09:22)
[2018-12-31] MEDS: VANCOMYCIN ORAL SOL 250MG/5ML ORAL SYRINGE PO SCH ×2 (09:23→20:12)
[2018-12-31] MEDS: SERTRALINE HCL 50 MG TAB PO SCH (09:23)
[2018-12-31] MEDS: FERROUS SULFATE 325MG TAB PO SCH (09:23)
[2018-12-31] MEDS: APIXABAN 5 MG TAB (ELIQUIS) PO SCH ×2 (09:23→20:12)
[2018-12-31] MEDS: DOCUSATE SODIUM 100 MG CAP PO SCH ×2 (09:23→20:12)
[2018-12-31] MEDS: OMEGA-3 1000MG CAPSULE PO SCH ×2 (09:23→20:12)
[2018-12-31] MEDS: ASPIRIN 81 MG ENTERIC TAB PO SCH (09:23)
[2018-12-31] MEDS: OMEPRAZOLE 20 MG CAP PO SCH (09:23)
--- NOTE | 2018-12-31 09:49 | IPN ---
DATE: 12/31/2018 I was called last night by Dr. Rudolph and asked to perform transesophageal echocardiogram on Mr. Cruz. The rationale is the fact that he continues to have enterococcal bacteremia with two cultures drawn virtually a month apart. Even though he does not have any obvious fever or chills, his sedimentation rate is extremely elevated and consequently there is suspicion for bacterial endocarditis. He had also two echocardiograms apparently a month apart. Even though no vegetations were seen, there seems to be worsening mitral insufficiency. I met with the patient this morning. I examined him and I explained the rationale for the procedure. He wants and is willing to proceed. He did sign appropriate consent. He certainly is short of breath even at rest even with supplemental oxygen, but according to him it has not changed appreciably over the last several months. I confirmed this with JEWEL Cartwright, who is his primary care provider. He has not eaten breakfast today yet. Consequently, I plan to perform procedure later today. In the interim, he will get 2 units of packed red blood cells. I am somewhat concerned about his prognosis. I do think that it is not likely that he would be a candidate for surgical intervention, but it by any chance there are no vegetations, then there will have to be search for alternative sources of infection and that would definitely alter further management. Consequently, I believe that the procedure is indicated.
[2018-12-31 09:50] LABS: PERCENT SATURATION 12.4 % (19.7-50.0)
[2018-12-31 10:46] LABS: FOLATE 7.2 NG/ML (>5.4)
[2018-12-31] MEDS: FINASTERIDE 5 MG TAB PO SCH (12:26)
[2018-12-31] MEDS: FENOFIBRATE 145 MG TAB (TRICOR) PO SCH (12:26)
[2018-12-31] MEDS: LISINOPRIL 10 MG TAB PO SCH ×2 (12:26→20:12)
[2018-12-31] MEDS: BISOPROLOL FUMARATE 5 MG TAB PO SCH (12:27)
[2018-12-31] MEDS: IPRATROPIUM 0.5MG/ALBUTEROL 2.5MG INH SOL UD 3ML (DUONEB)(J7620) NEB PRN (16:46)
[2018-12-31] MEDS ORDERED: LIDOCAINE 2% INJ 100 MG/5 ML SDV (FOR ANES.) As Ordered ONE (17:44)
[2018-12-31] MEDS ORDERED: PROPOFOL 200 MG/20 ML VIAL As Ordered ONE (17:44)
[2018-12-31] MEDS ORDERED: MIDAZOLAM INJ 2 MG/2 ML VIAL (J2250) As Ordered ONE (17:45)
[2018-12-31] MEDS ORDERED: fentaNYL 100 MCG/2 ML INJECTION (J3010) As Ordered ONE (17:45)
[2018-12-31] MEDS ORDERED: CETACAINE SPRAY 5GM As Ordered ONE (18:09)
[2018-12-31] MEDS ORDERED: LIDOCAINE VISCOUS 2% SOLN 15ML UDC As Ordered ONE (18:10)
--- NOTE | 2018-12-31 19:54 | T-ECHO ---
DATE OF PROCEDURE: 12/31/2018 REFERRING PHYSICIAN: Dr. Rudolph INDICATION: Enterococcal bacteremia, suspicion for endocarditis. BRIEF HISTORY: Mr. Cruz is a 73-year-old man who has a history of coronary artery disease and peripheral vascular disease, who presented to [facility] with malaise and shortness of breath. He was found to be in congestive heart failure but also grew Enterococcus from blood culture. He surprisingly had identical bacteria on blood culture a month ago. His sedimentation rate is over 100. Consequently, even in absence of fever and chills, it represented high suspicion for endocarditis. After transthoracic study failed to identify any obvious vegetation, it was felt that transesophageal echocardiogram necessary to rule out this diagnosis. I met with the patient the morning of the procedure. I explained the rationale. He did sign appropriate consent. PROCEDURE NOTE: Procedure was performed in operating room. He presented in fasting condition. Time out was taken. His posterior pharynx was anesthetized using viscous lidocaine and Cetacaine spray. He was then positioned in left lateral decubitus position and when appropriate level of sedation was achieved, as administered by anesthesiology staff, probe was introduced into esophagus without difficulty. I did not enter the stomach. After appropriate images were obtained, it was withdrawn. There were no immediate complications, and the patient tolerated the procedure well. FINDINGS: Left ventricle is normal systolic function. I estimate ejection fraction (EF) around 60-65%. No definite segmental wall motion abnormalities are seen. Right ventricle appears also normal size and systolic function. Left atrium is likely severely enlarged. Right atrium also appears at least moderately enlarged. Mitral valve is thickened, and there are calcifications in chordal apparatus but no definite prolapse or vegetation is seen. By color Doppler imaging, there is approximately mild to moderate or in worst case scenario moderate mitral insufficiency. Aortic valve also exhibits significant degenerative abnormalities with thickening of mitral leaflets. Even though there is this thickening, I do not appreciate any definite vegetation or mobile mass. By color Doppler imaging, there is approximately mild aortic insufficiency and no aortic stenosis. Tricuspid valve appears normal. Again normal mobility. No obvious vegetations are seen. Mild tricuspid insufficiency is noted. Calculated pulmonary artery pressure is around 40 mmHg. Quality of TR jet, though, was not very good, and this may represent underestimation. Pulmonic valve was relatively poorly visualized. Again, no vegetations are seen. Mild PI is noted. Atrial septum appears intact based on 2D and color Doppler imaging. There is normal flow in both left-sided and right-sided pulmonary veins. Left atrial appendage is free of thrombi. Visualized segment of thoracic aorta exhibits atherosclerotic plaques but no obvious thrombi or ulcerations. CONCLUSIONS: 1. Preserved left ventricular (LV) systolic function. 2. Degenerative abnormalities of mitral valve with approximately moderate mitral insufficiency but no visualize prolapse or vegetation. 3. Degenerative abnormalities of aortic valve with thickening of the leaflet and calcifications but no definite vegetations, mild aortic insufficiency. 4. Relatively normal tricuspid and pulmonic valves. 5. Intact atrial septum. 6. Normal flow in both left and right-sided pulmonary veins. 7. Atherosclerosis of the thoracic aorta. COMMENT: Subacute bacterial endocarditis (SBE) prophylaxis is not recommended. Even though the thickening of the aortic valve could potentially represent signs of infection, no definite vegetations are seen. MTDD
[2018-12-31] MEDS: ROSUVASTATIN 10 MG TAB (CRESTOR) PO SCH (20:12)
[2018-12-31] MEDS: TAMSULOSIN 0.4 MG CAP PO SCH (20:12)
[2018-12-31] MEDS: ACETAMINOPHEN 500 MG TAB PO SCH (20:12)
[2018-12-31] MEDS: LATANOPROST 0.005% OPHTH SOLN 2.5 ML OU SCH (20:13)
[2019-01-01] VITALS: BP 110/60
[2019-01-01] MEDS: IPRATROPIUM 0.5MG/ALBUTEROL 2.5MG INH SOL UD 3ML (DUONEB)(J7620) NEB PRN (00:29)
[2019-01-01] MEDS: ALPRAZolam 0.25 MG TAB PO PRN ×3 (01:16→23:26)
[2019-01-01] MEDS: AMPICILLIN SOD 2 GM in D5W MINI-BAG PLUS 100 ML IV SCH ×6 (01:16→21:35)
[2019-01-01] MEDS: IPRATROPIUM 0.5MG/ALBUTEROL 2.5MG INH SOL UD 3ML (DUONEB)(J7620) NEB SCH ×4 (01:41→20:40)
[2019-01-01 04:00] VITALS: BP 122/60
[2019-01-01] MEDS: cefTRIAXone SOD 2 GM in D5W MINI-BAG PLUS 50 ML IV SCH ×2 (05:14→16:18)
[2019-01-01] MEDS: SLF 3 ML SYR IV SCH ×3 (06:00→21:37)
[2019-01-01 06:02] LABS: HEMATOCRIT 32.6 % (42.0-52.0); MEAN CORPUSCULAR HEMOGLOBIN 28.3 pg (27.0-33.0); MEAN CORPUSCULAR VOLUME 91.3 fl (80.0-96.0); PLATELET COUNT, AUTOMATED 339 10^3/uL (150-450); RED BLOOD COUNT 3.57 10^6/uL (4.30-6.10); WHITE BLOOD COUNT 5.2 10^3/uL (4.0-10.0)
[2019-01-01 06:14] LABS: HEMOGLOBIN 10.1 g/dl (13.5-17.5)
[2019-01-01 06:22] LABS: CREATININE FOR GFR 1.52 MG/DL (0.70-1.30); GLOMERULAR FILTRATION RATE 47.8 (>42); MAGNESIUM LEVEL 2.1 MG/DL (1.8-2.4); POTASSIUM SERUM 4.4 MEQ/L (3.5-5.1)
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
[2019-01-01 08:00] VITALS: BP 106/70
--- NOTE | 2019-01-01 08:28 | IPN ---
DATE: 12/31/2018 Mr. Cruz is very irritable today. He has a sitter. He was seen by Dr. Grant who has him scheduled for a transesophageal echocardiogram today. He is irritated because he has not gone down yet, the procedure would only take 20 minutes and why does he have to wait so long. He did not let me examine him today. White count 5.3, hemoglobin 7, hematocrit 22.9, platelets 323. ESR more than 140. Sodium 137, potassium 4.3, chloride 101, bicarb 28, BUN 39, creatinine 1.57, glucose 210, calcium 8, magnesium 2.1, iron 25, TIBC 201, iron saturation 12%. Vitamin B12 1337, folate 7.2, BNP 4,182, CRP 25.6. IMPRESSION: 1. Recurrent E faecalis bacteremia on 12/01 and 12/28. This is very suggestive of endocarditis, other possibilities could be graft infection. The patient has bilateral grafts from previous vascular surgeries. The patient is scheduled for transesophageal echocardiogram today. SED rate and CRP quite elevated also consistent with endocarditis. The patient on ampicillin and 2 grams IV to 4 hours and ceftriaxone 2 grams IV every 12 hours which need to be continued for a total of 6 weeks if patient has endocarditis. Repeat blood cultures have been ordered if negative the patient will need a PICC line next week. 2. Congestive heart failure and this will heal. He is brought in the on IV Lasix 40 mg every 12 hours. 3. History of C difficile colitis and the patient is on the prolonged broad spectrum antibiotic I have resumed vancomycin 250 mg every 12 hours prophylactically. 4. GI bleeding with an iron deficiency anemia. Patient with history of tubular adenomas and that may predispose him to E faecalis endocarditis. May also have underlying colon cancer. PLAN: Continue IV ampicillin, ceftriaxone, blood cultures from today were ordered and are pending. Blood cultures for tomorrow if two sets of blood culture negative, please schedule PICC line for next week.
[2019-01-01] MEDS: ASPIRIN 81 MG ENTERIC TAB PO SCH (09:23)
[2019-01-01] MEDS: ACETAMINOPHEN TAB 650MG DOSE (2X325MG) PO PRN ×2 (09:23→18:34)
[2019-01-01] MEDS: POTASSIUM CHLORIDE 10 MEQ SR TABLET PO SCH (09:23)
[2019-01-01] MEDS: APIXABAN 5 MG TAB (ELIQUIS) PO SCH ×2 (09:24→21:36)
[2019-01-01] MEDS: SERTRALINE HCL 50 MG TAB PO SCH (09:24)
[2019-01-01] MEDS: DOCUSATE SODIUM 100 MG CAP PO SCH ×2 (09:24→21:35)
[2019-01-01] MEDS: OMEPRAZOLE 20 MG CAP PO SCH (09:24)
[2019-01-01] MEDS: FERROUS SULFATE 325MG TAB PO SCH (09:24)
[2019-01-01] MEDS: OMEGA-3 1000MG CAPSULE PO SCH ×2 (09:24→21:36)
[2019-01-01] MEDS: VANCOMYCIN ORAL SOL 250MG/5ML ORAL SYRINGE PO SCH ×2 (09:25→21:36)
[2019-01-01] MEDS: HumaLOG INSULIN (NovoLOG) PER UNIT SC SCH ×4 (09:25→21:37)
[2019-01-01] MEDS: FENOFIBRATE 145 MG TAB (TRICOR) PO SCH (11:26)
[2019-01-01] MEDS: FINASTERIDE 5 MG TAB PO SCH (11:26)
[2019-01-01] MEDS: LISINOPRIL 10 MG TAB PO SCH ×2 (11:26→21:00)
[2019-01-01] MEDS: BISOPROLOL FUMARATE 5 MG TAB PO SCH (11:26)
[2019-01-01] MEDS: FUROSEMIDE 40 MG/4 ML VIAL (J1940) IV SCH ×2 (11:27→23:27)
[2019-01-01 12:00] VITALS: BP 132/60
--- NOTE | 2019-01-01 15:01 | IPN ---
DATE: 01/01/2019 Patient is seen today on the PCU. He had his transesophageal echocardiogram done. Not necessarily helpful, it did show some thickened valve but not any discrete vegetations. He has not been febrile. He is receiving his IV antibiotics. He is not complaining of any shortness of breath. She does have a cough. He is proud to show me that his pedal edema has resolved. His current medications, are vancomycin by mouth, ampicillin, ceftriaxone, potassium chloride, Zebeta, finasteride, Tricor, aspirin, ferrous sulfate, omeprazole, Zoloft, furosemide, Eliquis, fish oil, Xalatan drops, lisinopril, rosuvastatin, insulin coverage, albuterol nebulizers, as needed medications for anxiety, for dry eyes, for cough for wheezing. On examination temperature is 97.1, blood pressure 132/60, pulse 80 and irregular, respirations 18, O2 saturation 99% on room air. He is alert, pleasant, cooperative, not in any distress. He has a congested sounding cough. He does have some scattered rhonchi throughout most lung schuster. Heart has distant, irregular, without any levar murmur. Abdomen is soft and nontender without any masses or organomegaly. Bowel sounds are active. There is no edema today. Labs today show a hemoglobin 10.1, of course he did get 2 units of blood yesterday, WBC 5200, platelets 339,000, BUN 39, creatinine 1.52, sodium 134, potassium 4.4, iron and iron-binding are both low, ferritin is 184, vitamin B12 1337, folate 7.2, proBNP 4182. ASSESSMENT: 1. Enterococcus faecalis bacteremia. 2. Anemia. Better after being transfused. 3. Diastolic congestive heart failure (CHF). His edema is improved. 4. Hypokalemia stable. 5. Chest wall pain, not a problem currently. 6. Chronic kidney disease, stable. 7. Atrial fibrillation, stable. 8. Anticoagulant therapy, stable. 9. Diabetes, stable. PLAN: Patient will continue on his current medications. No changes are made today. He was seen by Dr. Rudolph, our infectious disease control managed security sales consultant yesterday, and we are following her recommendations. He is aware of everything that we discussed in progress note already and seems willing to take it one day at a time. He has requested DO NOT RESUSCITATE on his Medical Order for Life-Sustaining Treatment (MOLST) form. YAORN
[2019-01-01 16:00] VITALS: BP 110/58
[2019-01-01 20:00] VITALS: BP 110/58
[2019-01-01] MEDS: ROSUVASTATIN 10 MG TAB (CRESTOR) PO SCH (21:35)
[2019-01-01] MEDS: ACETAMINOPHEN 500 MG TAB PO SCH (21:36)
[2019-01-01] MEDS: TAMSULOSIN 0.4 MG CAP PO SCH (21:36)
[2019-01-01] MEDS: LATANOPROST 0.005% OPHTH SOLN 2.5 ML OU SCH (21:37)
[2019-01-02] VITALS: BP 118/60
[2019-01-02] MEDS: ACETAMINOPHEN TAB 650MG DOSE (2X325MG) PO PRN ×3 (00:50→15:09)
[2019-01-02] MEDS: IPRATROPIUM 0.5MG/ALBUTEROL 2.5MG INH SOL UD 3ML (DUONEB)(J7620) NEB SCH ×4 (02:00→20:37)
[2019-01-02] MEDS: AMPICILLIN SOD 2 GM in D5W MINI-BAG PLUS 100 ML IV SCH ×6 (02:00→21:43)
[2019-01-02 04:00] VITALS: BP 112/58
[2019-01-02] MEDS: cefTRIAXone SOD 2 GM in D5W MINI-BAG PLUS 50 ML IV SCH ×2 (05:30→16:30)
[2019-01-02 05:46] LABS: HEMATOCRIT 30.1 % (42.0-52.0); HEMOGLOBIN 9.3 g/dl (13.5-17.5); MEAN CORPUSCULAR HEMOGLOBIN 27.9 pg (27.0-33.0); MEAN CORPUSCULAR HGB CONC 30.9 g/dl (32.0-36.5); MEAN CORPUSCULAR VOLUME 90.4 fl (80.0-96.0); PLATELET COUNT, AUTOMATED 324 10^3/uL (150-450); RED BLOOD COUNT 3.33 10^6/uL (4.30-6.10); WHITE BLOOD COUNT 5.3 10^3/uL (4.0-10.0)
[2019-01-02 05:59] LABS: CALCIUM LEVEL 8.6 MG/DL (8.8-10.2); CREATININE FOR GFR 1.65 MG/DL (0.70-1.30); GLOMERULAR FILTRATION RATE 43.5 (>42); POTASSIUM SERUM 4.5 MEQ/L (3.5-5.1)
[2019-01-02] MEDS: SLF 3 ML SYR IV SCH ×3 (06:00→21:43)
[2019-01-02] MEDS: HumaLOG INSULIN (NovoLOG) PER UNIT SC SCH ×4 (07:19→19:39)
[2019-01-02 08:00] VITALS: BP 110/50
[2019-01-02] MEDS: DOCUSATE SODIUM 100 MG CAP PO SCH ×2 (08:40→19:38)
[2019-01-02] MEDS: FERROUS SULFATE 325MG TAB PO SCH (08:40)
[2019-01-02] MEDS: OMEGA-3 1000MG CAPSULE PO SCH ×2 (08:40→19:38)
[2019-01-02] MEDS: SERTRALINE HCL 50 MG TAB PO SCH (08:40)
[2019-01-02] MEDS: guaiFENesin ER 600 MG TAB PO PRN (08:41)
[2019-01-02] MEDS: OMEPRAZOLE 20 MG CAP PO SCH (08:41)
[2019-01-02] MEDS: ASPIRIN 81 MG ENTERIC TAB PO SCH (08:41)
[2019-01-02] MEDS: POTASSIUM CHLORIDE 10 MEQ SR TABLET PO SCH (08:41)
[2019-01-02] MEDS: ALPRAZolam 0.25 MG TAB PO PRN ×3 (08:41→19:37)
[2019-01-02] MEDS: APIXABAN 5 MG TAB (ELIQUIS) PO SCH ×2 (08:41→19:38)
[2019-01-02] MEDS: VANCOMYCIN ORAL SOL 250MG/5ML ORAL SYRINGE PO SCH ×2 (09:51→19:37)
[2019-01-02] MEDS: FUROSEMIDE 40 MG TAB PO SCH (10:43)
[2019-01-02] MEDS: LISINOPRIL 10 MG TAB PO SCH ×2 (11:58→19:37)
[2019-01-02] MEDS: FINASTERIDE 5 MG TAB PO SCH (11:59)
[2019-01-02] MEDS: BISOPROLOL FUMARATE 5 MG TAB PO SCH (11:59)
[2019-01-02] MEDS: FENOFIBRATE 145 MG TAB (TRICOR) PO SCH (11:59)
[2019-01-02 12:00] VITALS: BP 116/52
[2019-01-02 16:00] VITALS: BP 110/56
[2019-01-02] MEDS: ROSUVASTATIN 10 MG TAB (CRESTOR) PO SCH (19:38)
[2019-01-02] MEDS: ACETAMINOPHEN 500 MG TAB PO SCH (19:38)
[2019-01-02] MEDS: TAMSULOSIN 0.4 MG CAP PO SCH (19:38)
[2019-01-02] MEDS: LATANOPROST 0.005% OPHTH SOLN 2.5 ML OU SCH (19:39)
[2019-01-02 20:00] VITALS: BP 122/56
[2019-01-02] MEDS ORDERED: ALPRAZolam 0.25 MG TAB PO ONE (23:45)
[2019-01-03] VITALS (7 sets, daily range): BP systolic 110–135; BP diastolic 54–68
[2019-01-03] MEDS: IPRATROPIUM 0.5MG/ALBUTEROL 2.5MG INH SOL UD 3ML (DUONEB)(J7620) NEB SCH ×4 (00:52→19:45)
[2019-01-03] MEDS: AMPICILLIN SOD 2 GM in D5W MINI-BAG PLUS 100 ML IV SCH ×7 (02:01→21:26)
[2019-01-03] MEDS: ACETAMINOPHEN TAB 650MG DOSE (2X325MG) PO PRN (03:48)
[2019-01-03 05:29] LABS: HEMATOCRIT 28.9 % (42.0-52.0); MEAN CORPUSCULAR HEMOGLOBIN 28.3 pg (27.0-33.0); MEAN CORPUSCULAR HGB CONC 31.1 g/dl (32.0-36.5); MEAN CORPUSCULAR VOLUME 90.9 fl (80.0-96.0); PLATELET COUNT, AUTOMATED 309 10^3/uL (150-450); RED BLOOD COUNT 3.18 10^6/uL (4.30-6.10); WHITE BLOOD COUNT 6.6 10^3/uL (4.0-10.0)
[2019-01-03] MEDS: cefTRIAXone SOD 2 GM in D5W MINI-BAG PLUS 50 ML IV SCH ×2 (05:39→17:06)
[2019-01-03 05:49] LABS: CREATININE FOR GFR 1.55 MG/DL (0.70-1.30); GLOMERULAR FILTRATION RATE 46.8 (>42); POTASSIUM SERUM 4.9 MEQ/L (3.5-5.1)
[2019-01-03] MEDS: SLF 3 ML SYR IV SCH ×3 (06:00→22:00)
[2019-01-03] MEDS: VANCOMYCIN ORAL SOL 250MG/5ML ORAL SYRINGE PO SCH ×2 (08:15→21:20)
[2019-01-03] MEDS: HumaLOG INSULIN (NovoLOG) PER UNIT SC SCH ×4 (08:15→21:20)
[2019-01-03] MEDS: APIXABAN 5 MG TAB (ELIQUIS) PO SCH ×2 (08:16→21:21)
[2019-01-03] MEDS: OMEPRAZOLE 20 MG CAP PO SCH (08:16)
[2019-01-03] MEDS: POTASSIUM CHLORIDE 10 MEQ SR TABLET PO SCH (08:16)
[2019-01-03] MEDS: DOCUSATE SODIUM 100 MG CAP PO SCH ×2 (08:16→21:21)
[2019-01-03] MEDS: SERTRALINE HCL 50 MG TAB PO SCH (08:16)
[2019-01-03] MEDS: FERROUS SULFATE 325MG TAB PO SCH (08:16)
[2019-01-03] MEDS: OMEGA-3 1000MG CAPSULE PO SCH ×2 (08:16→21:21)
[2019-01-03] MEDS: ASPIRIN 81 MG ENTERIC TAB PO SCH (08:16)
[2019-01-03] MEDS: FUROSEMIDE 40 MG TAB PO SCH (08:17)
--- NOTE | 2019-01-03 09:21 | IPNPDOC ---
Subjective Date Seen The patient was seen on 01/03/19. Subjective Chief Complaint/HPI Pt feels tired this morning, didn't sleep well overnight. He is upset that he didn't get enough breakfast, he had eggs, a muffin and cereal. General: Reports: Fatigue Constitutional: Denies: Chills, Fever Pulmonary: Reports: Dyspnea (chronic, close to baseline, per pt.), Cough Cardiovascular: Denies: Chest Pain, Palpitations Gastrointestinal: Denies: Nausea, Vomiting, Abdominal Pain, Diarrhea Neurological: Denies: Weakness Psych: Denies: Mood Normal (irritable) Objective Physical Examination General Exam: Positive: Alert, No Acute Distress ENT Exam: Positive: Mucous membr. moist/pink Neck Exam: Positive: Supple; Negative: JVD Chest Exam: Positive: Rales (Bibasilar), Rhonchi (scattered throughout, slight improvement with cough) Heart Exam: Positive: Rate Normal, Irregular Rhythm, Murmurs Abdomen Exam: Positive: Normal bowel sounds, Soft; Negative: Tenderness, Hepatospenomegaly Extremity Exam: Positive: Edema (trace pitting pedal edema, slightly less pretibial) Skin Exam: Positive: Nl turgor and temperature; Negative: Rash Psych Exam: Positive: Mental status NL (alert and oriented x 3); Negative: Mood NL (irritable) Assessment /Plan Problems (1) Enterococcus faecalis infection Status: Acute Response to Treatment: Stable Discussed With: Nurse, Membership Sales Advisor, Patient Problem Specific Plan: Monitor Clinically Problem Text: 01/03 ANURAG without obvious vegetation although thickening of the valves was noted. He has had 2 Neg BC and therefore an order for PICC has been placed. 05/02 colonoscopy with Eder with mtp sessile polpys + tubular adenomas, rec repeat scope in 6 months, pt has declined. 08/31 LLE endarterectomy with Bovine tissue - Ralph 02/28 RLE fem endarterectomy, R fem/pop bypass with porpraten graft - Ralph address with attending how to proceed regarding identifying source, it is also important to note that Dr Grant doesn't feel endocarditis can be completely exc luded d/t thickening of the valves 12/[address] Rudolph yesterday who called concerned regarding the pts prelim BC results, she was consulted for adjustment and recommendations regarding abx. Cardio has been consulted, Dr Grant has seen the patient. He plans to ANURAG probably later today. 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 Last admission he had an E. faecalis bacteremia. It is VERY likely that the bacteria in his blood this time is the same. The fact that her has a persistent bacteremia leads to concerns for either a large and persistent colonic lesion ( e.g dysplastic polyp, or an endocarditis). Dr. Rudolph was consulted and has adjusted his abx while we clarify what is going on. (2) Anemia Status: Acute Response to Treatment: Worse Discussed With: Nurse, Membership Sales Advisor, Patient Problem Specific Plan: Monitor Clinically, Repeat Labs Problem Text: 01/03 Hgb slowing trending down s/p 2 units, monitor closely, OB has not been collected. 01/01 2 units of pRBCs ordered, Lasix to be given between each unit. f/u labs ordered, stool OB, Fe, ferritin, B12 folate (3) Diastolic CHF, chronic Status: Acute Response to Treatment: Stable Discussed With: Nurse, Membership Sales Advisor, Patient Problem Text: 01/03 Lasix 40 mg daily, appears compensated 12/31 [facility] [place] - Dr Grant has been consulted. Lasix IV 40 mg q12h, I remain unconvin jony that his I & Os are accurate, listing 600 in yesterday and 1200 out. Cont to monitor, Scr increased to 1.5 today, baseline is 1.6-1.7, he will be getting 2 units of blood today and an order for Lasix 20 mg between each unit was placed. 12/30 Lasx IV q12h, I + Os appear to be inaccurate, spoke to nursing, slight bump in Scr, monitor, anticipate changing to HD Lasix tomorrow, 40 mg daily. En c BARRON diet. 12/29/18: Started on Lasix 40mg IV q 12 hours with a net negative of 2L, 1800 cc fluid restriction Chest Xray Impression: Probable interstitial infiltrates. (4) Hypokalemia Status: Acute Response to Treatment: Improving Problem Text: 12/30 K + 3.8, cont with daily replacement while on IV lasix. 12/29/18: K+ 3.2. Replaced with K+ 40 meq x 1 today, repeat K+ level this afternoon. We will start K+ 40meq po q day and monitor (5) Chest wall pain Status: Acute Response to Treatment: Improving Discussed With: Nurse, Patient Problem Specific Plan: Repeat Tests Problem Text: 12/30 I did NOT palpate crepitations today or last week in office, Xray Neg for fractures. 12/29 He was complaining of chest pain. On examination he has tenderness on palpation over the R chest wall with increased "buoyancy" of the ribs and mild crepitations noted. He reports that Zoey Gilbert, R-PAC told him he had some rib fractures after a fall last week, but I don't see any radiographic documentation of this. I will order a right rib series for further evaluation. (6) CKD (chronic kidney disease), stage III Status: Chronic Response to Treatment: Stable Problem Text: 12/31 Scr 1.5, baseline 1.6, monitor. 12/30 Baseline Scr 1.6, today 1.35, cont with IV Lasix, monitor. 12/29/18: baseline Cre~1.6-1.7, GFR ~36-45. Today Cre 1.18, GFR >60, this is most likely d/t his dilutional status. We will monitor (7) Atrial fibrillation Status: Chronic Response to Treatment: Stable Problem Text: 12/29/18: Rate controlled on Bisoprolol 5mg daily. Currently on Eliquis 5 mg po bid (8) DM2 (diabetes mellitus, type 2) Status: Chronic Response to Treatment: Stable Problem Text: 12/29/18: Managed with Lantus 22 units q hs and Humalog sliding scale outpatient. He is currently being covered with mealtime insulin only. He i s not NPO, but his fasting BGs have been 78, 99 and he has only required 2 units of coverage. We will monitor and make adjustments in regimen accordingly. (9) Diarrhea Status: Resolved Problem Text: 12/30 No recurrence of loose stools since admission. 12/29/18: Patient with hx of c-diff at his previously hospitalization about a pprox one month ago. GI panel pending. Plan/VTE VTE Prophylaxis Ordered?: Yes (Eliquis 5mg bid ) Plan Therapy: PT Anticipated Discharge: Sub Acute Rehab (Rec STR at d/c.) VS, I&O, 24H, Fishbone Vital Signs/I&O Vital Signs Date Time Temp Pulse Resp B/P (MAP) Pulse Ox O2 Delivery O2 Flow Rate FiO2 01/03/19 04:00 2.0 01/03/19 04:00 97.3 104 20 118/60 (79) 94 12/31/18 19:00 Nasal Cannula I&O- Last 24 Hours up to 6 AM 01/03/19 06:00 Intake Total 1490 ml Output Total 1375 ml Balance 115 ml Laboratory Data 24H LABS Laboratory Tests 2 01/02/19 11:34: Bedside Glucose (Misc Panel) 374H 01/02/19 16:20: Bedside Glucose (Misc Panel) 296H 01/02/19 19:28: Bedside Glucose (Misc Panel) 325H 01/02/19 23:06: Bedside Glucose (Misc Panel) 382H 01/03/19 05:01: Nucleated Red Blood Cells % (auto) 0.0, Anion Gap 7L, Glomerular Filtration Rate 46.8, Blood Urea Nitrogen 38H, Creatinine 1.55H, Sodium Level 133L, Potassium Level 4.9, Chloride Level 97L, Carbon Dioxide Level 29, Calcium Level 8.0L, Magnesium Level 2.0 CBC/BMP Laboratory Tests 01/03/19 05:01 Red Blood Count 3.18 L, Mean Corpuscular Volume 90.9, Mean Corpuscular Hemo globin 28.3, Mean Corpuscular Hemoglobin Concent 31.1 L, Red Cell Distribution Width 17.9 H, Calcium Level 8.0 L Microbiology Microbiology 01/01/19 Blood Culture - Preliminary, Resulted No Growth after 48 hours. All Specime... 12/31/18 Blood Culture - Preliminary, Resulted No Growth after 72 hours. All specime... 12/28/18 Blood Culture - Final, Complete Enterococcus Faecalis 12/28/18 Blood Culture - Final, Complete Enterococcus Faecalis 12/29/18 MRSA Screen - Final, Complete ZOEY GILBERT PA-C Jan 03, 2019 09:21
[2019-01-03] MEDS: ALPRAZolam 0.25 MG TAB PO PRN (09:54)
[2019-01-03] MEDS: FINASTERIDE 5 MG TAB PO SCH (12:26)
[2019-01-03] MEDS: BISOPROLOL FUMARATE 5 MG TAB PO SCH (12:26)
[2019-01-03] MEDS: FENOFIBRATE 145 MG TAB (TRICOR) PO SCH (12:26)
[2019-01-03] MEDS: LISINOPRIL 10 MG TAB PO SCH ×2 (12:26→21:25)
[2019-01-03] MEDS ORDERED: LIDOCAINE 1% MDV 20ML VIAL As Ordered ONE (14:08)
--- NOTE | 2019-01-03 17:55 | REP ---
Procedure: PICC line insertion with Ernestina-Anders The procedure was performed under the direct supervision of Dr. Oliva. The risks and benefits of the procedure were explained to the patient and informed consent was obtained. The right basilic vein was localized using ultrasound guidance. The skin was prepped and draped in a sterile fashion. 2% lidocaine was used as a local anesthetic. Using ultrasound guidance the basilic vein was cannulated and a 0.018 guidewire was inserted and advanced to the SVC using fluoroscopic guidance. The needle was removed and a 5.5 Cymraes dilator and peel-away sheath was inserted over the guide wire. A 5.5 Cymraes dual lumen catheter was cut to length of 38 cm. The dilator was removed and the catheter was inserted over the guide wire with the tip ending in the SVC. The peel-away sheath was removed and the catheter was flushed with heparinized saline as per Hospital protocol. The catheter was affixed to the skin and a sterile dressing was applied. The patient tolerated the procedure well and there were no immediate complications. 0.4 minutes of fluoro time was utilized for this procedure. Reviewed by FLAVIO Will 01/03/2019 04:53 P Electronically Signed by Bernabe Oliva MD 01/03/2019 05:46 P
[2019-01-03] MEDS: SODIUM CHLORIDE 0.9% INJ 10 ML SYR IV SCH (18:00)
--- NOTE | 2019-01-03 21:01 | IPN ---
DATE: 01/02/2019 The patient is seen today on PCU. He has been stable overnight. He still has some cough. The swelling in his feet remains down. He is not dizzy or lightheaded. He says he feels tired this morning, but he has been up to the bathroom several times and had breakfast. Not having any chest pains or palpitations. No fever or chills. He remains on IV Lasix, by mouth vancomycin, IV ampicillin and ceftriaxone by mouth, potassium, Zebeta, proscar, Tricor, Ecotrin, iron, Prilosec, Zoloft, scheduled Tylenol at bedtime, Eliquis, fish oil, Colace and Xalatan eye drops, Prinivil, Flomax, Crestor, sliding scale insulin, DuoNeb scheduled, alprazolam as needed, actually did get a dose this morning, guaifenesin and as needed DuoNeb nebulizers. On examination, temperature is 97.7, pulse is 93 and irregular. Blood pressure 112/52, oxygen saturation 92% on 2 liters nasal cannula. His speech is unchanged. It can be a little bit difficult to understand. No facial weakness. Mucous membranes are moist. There are no neck masses, tenderness or adenopathy. No carotid bruits. Lungs show some scattered rhonchi. Heart has a regular and irregular rhythm. Not hearing any murmur, click or gallop. Abdomen is soft, nontender without any masses or organomegaly. Bowel sounds are active. There is no edema. Labs today show hemoglobin of 9.3, white blood count (WBC) 5300, platelets 324,000. His BUN is 40, creatinine 1.65, potassium 4.5, sodium 136, glucose was 213 today this morning. It was 270 yesterday afternoon, 350 before dinner, 374 at bedtime. ASSESSMENT: 1. Enterococcus faecalis bacteremia. 2. Anemia, has dropped a little bit since yesterday. 3. Diastolic congestive heart failure, improved. 4. Hypokalemia. 5. Hypokalemia stable. 6. Chest wall pain, not currently a problem. 7. Chronic kidney disease, BUN and creatinine are up, unclear whether that is a function of I would say probably of diuretics on top of his chronic kidney disease. 8. Diabetes. Blood sugars were labile. Anticoagulant therapy stable. 9. Atrial fibrillation, stable. PLAN: The patient will continue on his current medications. I have not made any changes today. He will be continuing on his antibiotics for awhile, question is whether other testing will be needed to assess him such as colonoscopy. YARON
[2019-01-03] MEDS: ROSUVASTATIN 10 MG TAB (CRESTOR) PO SCH (21:21)
[2019-01-03] MEDS: ACETAMINOPHEN 500 MG TAB PO SCH (21:21)
[2019-01-03] MEDS: TAMSULOSIN 0.4 MG CAP PO SCH (21:21)
[2019-01-03] MEDS: LATANOPROST 0.005% OPHTH SOLN 2.5 ML OU SCH (21:25)
[2019-01-03] MEDS: SODIUM CHLORIDE 0.9% INJ 10 ML SYR IV PRN (23:05)
[2019-01-04] MEDS: ALPRAZolam 0.25 MG TAB PO PRN ×3 (00:33→20:08)
[2019-01-04] MEDS: ACETAMINOPHEN TAB 650MG DOSE (2X325MG) PO PRN ×2 (00:33→13:05)
[2019-01-04] MEDS: guaiFENesin ER 600 MG TAB PO PRN (00:34)
[2019-01-04] MEDS: IPRATROPIUM 0.5MG/ALBUTEROL 2.5MG INH SOL UD 3ML (DUONEB)(J7620) NEB SCH ×5 (01:33→23:44)
[2019-01-04] MEDS: AMPICILLIN SOD 2 GM in D5W MINI-BAG PLUS 100 ML IV SCH ×6 (01:51→21:57)
[2019-01-04] MEDS: SODIUM CHLORIDE 0.9% INJ 10 ML SYR IV PRN ×3 (02:45→21:58)
[2019-01-04] MEDS: cefTRIAXone SOD 2 GM in D5W MINI-BAG PLUS 50 ML IV SCH ×2 (04:28→17:07)
[2019-01-04 04:43] LABS: HEMOGLOBIN 8.9 g/dl (13.5-17.5); MEAN CORPUSCULAR HEMOGLOBIN 28.6 pg (27.0-33.0); MEAN CORPUSCULAR HGB CONC 30.7 g/dl (32.0-36.5); MEAN CORPUSCULAR VOLUME 93.2 fl (80.0-96.0); PLATELET COUNT, AUTOMATED 286 10^3/uL (150-450); RED BLOOD COUNT 3.11 10^6/uL (4.30-6.10); WHITE BLOOD COUNT 6.3 10^3/uL (4.0-10.0)
[2019-01-04 05:05] LABS: CALCIUM LEVEL 8.5 MG/DL (8.8-10.2); CREATININE FOR GFR 1.46 MG/DL (0.70-1.30); GLOMERULAR FILTRATION RATE 50.1 (>42); MAGNESIUM LEVEL 2.2 MG/DL (1.8-2.4); POTASSIUM SERUM 4.6 MEQ/L (3.5-5.1)
[2019-01-04] MEDS: SLF 3 ML SYR IV SCH ×3 (06:00→21:57)
[2019-01-04] MEDS: SODIUM CHLORIDE 0.9% INJ 10 ML SYR IV SCH ×2 (06:00→18:00)
[2019-01-04 08:00] VITALS: BP 133/60
[2019-01-04] MEDS: VANCOMYCIN ORAL SOL 250MG/5ML ORAL SYRINGE PO SCH ×2 (08:02→20:08)
[2019-01-04] MEDS: HumaLOG INSULIN (NovoLOG) PER UNIT SC SCH ×4 (08:02→20:09)
[2019-01-04] MEDS: ASPIRIN 81 MG ENTERIC TAB PO SCH (08:03)
[2019-01-04] MEDS: APIXABAN 5 MG TAB (ELIQUIS) PO SCH ×2 (08:03→20:08)
[2019-01-04] MEDS: FUROSEMIDE 40 MG TAB PO SCH (08:03)
[2019-01-04] MEDS: OMEPRAZOLE 20 MG CAP PO SCH (08:03)
[2019-01-04] MEDS: DOCUSATE SODIUM 100 MG CAP PO SCH ×2 (08:03→20:08)
[2019-01-04] MEDS: SERTRALINE HCL 50 MG TAB PO SCH (08:03)
[2019-01-04] MEDS: OMEGA-3 1000MG CAPSULE PO SCH ×2 (08:03→20:08)
[2019-01-04] MEDS: FERROUS SULFATE 325MG TAB PO SCH (08:03)
[2019-01-04] MEDS: POTASSIUM CHLORIDE 10 MEQ SR TABLET PO SCH (08:04)
--- NOTE | 2019-01-04 10:16 | IPNPDOC ---
Subjective Date Seen The patient was seen on 01/04/19. Subjective Chief Complaint/HPI Pt this morning without new concerns. He is tired, not sleeping well. General: Reports: Fatigue Constitutional: Denies: Chills, Fever Pulmonary: Reports: Dyspnea, Cough Cardiovascular: Denies: Chest Pain, Palpitations Gastrointestinal: Denies: Nausea, Vomiting, Diarrhea Neurological: Reports: Weakness Psych: Reports: Mood Normal Objective Physical Examination General Exam: Positive: Alert, No Acute Distress ENT Exam: Positive: Mucous membr. moist/pink Neck Exam: Positive: Supple; Negative: JVD Chest Exam: Positive: Rales (Bibasilar), Rhonchi (scattered throughout, slight improvement with cough) Heart Exam: Positive: Rate Normal, Irregular Rhythm, Murmurs Abdomen Exam: Positive: Normal bowel sounds, Soft; Negative: Tenderness, Hepatospenomegaly Extremity Exam: Positive: Edema (trace pitting pedal edema, slightly less pretibial) Skin Exam: Positive: Nl turgor and temperature; Negative: Rash Psych Exam: Positive: Mental status NL (alert and oriented x 3); Negative: Mood NL (irritable) Assessment /Plan Assessment Agree with below. Spoke with Dr. Rosas's office; they recommend tagged WBC study or PET scan to further evaluate. Tagged WBC study ordered. -- CDT Problems (1) Enterococcus faecalis infection Status: Acute Response to Treatment: Stable Discussed With: Nurse, Operations Executive, Patient Problem Specific Plan: Monitor Clinically Problem Text: 01/04 Dr Zarate to speak with Dr Rosas today regarding risk of infection at graft site, I spoke with pt regarding consideration of colonoscopy, he has had this done with Dr Gaines in the past and is agreeable for repeat if necessary. 01/03 ANURAG without obvious vegetation although thickening of the valves was no [place]. He has had 2 Neg BC and therefore an order for PICC has been placed. 05/02 colonoscopy with Eder with mtp sessile polpys + tubular adenomas, rec repeat scope in 6 months, pt has declined. 08/31 LLE endarterectomy with Bovine tissue - Ralph 02/28 RLE fem endarterectomy, R fem/pop bypass with porpraten graft - Ralph address with attending how to proceed regarding identifying source, it is also important to note that Dr Grant doesn't feel endocarditis can be completely excluded d/t thickening of the valves 12/[address] Rudolph yesterday who called concerned regarding the pts prelim BC results, she was consulted for adjustment and recommendations regarding abx. Cardio has been consulted, Dr Grant has seen the patient. He plans to ANURAG probably later today. 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 Last admission he had an E. faecalis bacteremia. It is VERY likely that the bacteria in his blood this time is the same. The fact that her has a persistent bacteremia leads to concerns for either a large and persistent colonic lesion ( e.g dysplastic po lyp, or an endocarditis). Dr. Rudolph was consulted and has adjusted his abx while we clarify what is going on. (2) Anemia Status: Acute Response to Treatment: Worse Discussed With: Nurse, Operations Executive, Patient Problem Specific Plan: Monitor Clinically, Repeat Labs Problem Text: 01/04 Hgb stable overnight, cont to monitor. 01/03 Hgb slowing trending down s/p 2 units, monitor closely, OB has not been collected. 01/01 2 units of pRBCs ordered, Lasix to be given between each unit. f/u labs ordered, stool OB, Fe, ferritin, B12 folate (3) Diastolic CHF, chronic Status: Acute Response to Treatment: Stable Discussed With: Nurse, Operations Executive, Patient Problem Text: 01/03 Lasix 40 mg daily, appears compensated 12/31 [facility] [place] - Dr Grant has been consulted. Lasix IV 40 mg q12h, I remain unconvinced that his I & Os are accurate, listing 600 in yesterday and 1200 out. Cont to monitor, Scr increased to 1.5 today, baseline is 1.6-1.7, he will be getting 2 units of blood today and an order for Lasix 20 mg between each unit was placed. 12/30 Lasx IV q12h, I + Os appear to be inaccurate, spoke to nursing, slight bump in Scr, monitor, anticipate changing to HD Lasix tomorrow, 40 mg daily. Enc BARRON diet. 12/29/18: Started on Lasix 40mg IV q 12 hours with a net negative of 2L, 1800 cc fluid restriction Chest Xray Impression: Probable interstitial infiltrates. (4) Hypokalemia Status: Acute Response to Treatment: Improving Problem Text: 12/30 K + 3.8, cont with daily replacement while on IV lasix. 12/29/18: K+ 3.2. Replaced with K+ 40 meq x 1 today, repeat K+ level this afternoon. We will start K+ 40meq po q day and monitor (5) Chest wall pain Status: Acute Response to Treatment: Improving Discussed With: Nurse, Patient Problem Specific Plan: Repeat Tests Problem Text: 12/30 I did NOT palpate crepitations today or last week in office, Xray Neg for fractures. 12/29 He was complaining of chest pain. On examination he has tenderness on palpation over the R chest wall with increased "buoyancy" of the ribs and mild crepitations noted. He reports that Zoey Gilbert, R-PAC told him he had some rib fractures after a fall last week, but I don't see any radiographic documentation of this. I will order a right rib series for further evaluation. (6) CKD (chronic kidney disease), stage III Status: Chronic Response to Treatment: Stable Problem Text: 12/31 Scr 1.5, baseline 1.6, monitor. 12/30 Baseline Scr 1.6, today 1.35, cont with IV Lasix, monitor. 12/29/18: baseline Cre~1.6-1.7, GFR ~36-45. Today Cre 1.18, GFR >60, this is most likely d/t his dilutional status. We will monitor (7) Atrial fibrillation Status: Chronic Response to Treatment: Stable Problem Text: 12/29/18: Rate controlled on Bisoprolol 5mg daily. Currently on Eliquis 5 mg po bid (8) DM2 (diabetes mellitus, type 2) Status: Chronic Response to Treatment: Stable Problem Text: 12/29/18: Managed with Lantus 22 units q hs and Humalog sliding scale outpatient. He is currently being covered with mealtime insulin only. He is not NPO, but his fasting BGs have been 78, 99 and he has only required 2 units of coverage. We will monitor and make adjustments in regimen accordingly. (9) Diarrhea Status: Resolved Problem Text: 12/30 No recurrence of loose stools since admission. 12/29/18: Patient with hx of c-diff at his previously hospitalization about approx one month ago. GI panel pending. Plan/VTE VTE Prophylaxis Ordered?: Yes (Eliquis 5mg bid ) Plan Therapy: PT Anticipated Discharge: Sub Acute Rehab (Rec STR at d/c.) VS, I&O, 24H, Fishbone Vital Signs/I&O Vital Signs Date Time Temp Pulse Resp B/P (MAP) Pulse Ox O2 Delivery O2 Flow Rate FiO2 01/04/19 08:00 97.4 80 18 98 2.0 01/03/19 23:59 130/60 (83) 12/31/18 19:00 Nasal Cannula I&O- Last 24 Hours up to 6 AM 01/04/19 06:00 Intake Total 1565 ml Output Total 2065 ml Balance -500 ml Laboratory Data 24H LABS Laboratory Tests 2 01/03/19 12:11: Bedside Glucose (Misc Panel) 282H 01/03/19 16:30: Bedside Glucose (Misc Panel) 332H 01/03/19 19:59: Bedside Glucose (Misc Panel) 302H 01/04/19 04:36: Nucleated Red Blood Cells % (auto) 0.0, Anion Gap 5L, Glomerular Filtration Rate 50.1, Blood Urea Nitrogen 37H, Creatinine 1.46H, Sodium Level 135L, Potassium Level 4.6, Chloride Level 98, Carbon Dioxide Level 32, Calcium Level 8.5L, Magnesium Level 2.2 CBC/BMP Laboratory Tests 01/04/19 04:36 Red Blood Count 3.11 L, Mean Corpuscular Volume 93.2, Mean Corpuscular Hemoglobin 28.6, Mean Corpuscular Hemoglobin Concent 30.7 L, Red Cell Distribution Width 17.7 H, Calcium Level 8.5 L Microbiology Microbiology 01/01/19 Blood Culture - Preliminary, Resulted No Growth after 72 hours. All specime... 12/31/18 Blood Culture - Preliminary, Resulted No Growth after 72 hours. All specime... 12/28/18 Blood Culture - Final, Complete Enterococcus Faecalis 12/28/18 Blood Culture - Final, Complete Enterococcus Faecalis 12/29/18 MRSA Screen - Final, Complete ZOEY GILBERT PA-C Jan 04, 2019 10:16 EZIO ZARATE DO Jan 04, 2019 23:53
[2019-01-04] MEDS: IPRATROPIUM 0.5MG/ALBUTEROL 2.5MG INH SOL UD 3ML (DUONEB)(J7620) NEB PRN (10:44)
[2019-01-04] MEDS: LISINOPRIL 10 MG TAB PO SCH ×2 (12:00→20:08)
[2019-01-04] MEDS: BISOPROLOL FUMARATE 5 MG TAB PO SCH (12:00)
[2019-01-04] MEDS: FINASTERIDE 5 MG TAB PO SCH (12:17)
[2019-01-04] MEDS: FENOFIBRATE 145 MG TAB (TRICOR) PO SCH (12:17)
[2019-01-04 16:00] VITALS: BP 128/76
[2019-01-04 20:00] VITALS: BP 122/74
[2019-01-04] MEDS: ACETAMINOPHEN 500 MG TAB PO SCH (20:08)
[2019-01-04] MEDS: ROSUVASTATIN 10 MG TAB (CRESTOR) PO SCH (20:08)
[2019-01-04] MEDS: TAMSULOSIN 0.4 MG CAP PO SCH (20:08)
[2019-01-04] MEDS: LATANOPROST 0.005% OPHTH SOLN 2.5 ML OU SCH (20:12)
[2019-01-04] MEDS ORDERED: zolPIDEM TARTRATE 5 MG TAB PO ONE (23:30)
[2019-01-04 23:34] VITALS: BP 138/50
[2019-01-05] MEDS: AMPICILLIN SOD 2 GM in D5W MINI-BAG PLUS 100 ML IV SCH ×2 (01:43→05:35)
[2019-01-05 03:38] LABS: BASO % 0.3 % (0.0-1.0); EOS % 0.2 % (0.0-3.0); HEMATOCRIT 27.5 % (42.0-52.0); HEMOGLOBIN 8.6 g/dl (13.5-17.5); LYMPH # 0.6 10^3/uL (1.5-4.5); LYMPH % 9.6 % (24.0-44.0); MEAN CORPUSCULAR HEMOGLOBIN 28.8 pg (27.0-33.0); MEAN CORPUSCULAR HGB CONC 31.3 g/dl (32.0-36.5); MONO # 0.6 10^3/uL (0.0-0.8); MONO % 9.4 % (0.0-5.0); NEUTROPHILS # 5.2 10^3/uL (1.8-7.7); NEUTROPHILS % 79.4 % (36.0-66.0); PLATELET COUNT, AUTOMATED 269 10^3/uL (150-450); RED BLOOD COUNT 2.99 10^6/uL (4.30-6.10); WHITE BLOOD COUNT 6.5 10^3/uL (4.0-10.0)
[2019-01-05 04:00] VITALS: BP 136/60
[2019-01-05 04:02] LABS: ALBUMIN 1.9 GM/DL (3.2-5.2); BILIRUBIN,TOTAL 0.4 MG/DL (0.2-1.0); CALCIUM LEVEL 8.4 MG/DL (8.8-10.2); CREATININE FOR GFR 1.32 MG/DL (0.70-1.30); GLOMERULAR FILTRATION RATE 56.3 (>42); POTASSIUM SERUM 4.6 MEQ/L (3.5-5.1); TOTAL PROTEIN 6.4 GM/DL (6.4-8.2)
[2019-01-05] MEDS: cefTRIAXone SOD 2 GM in D5W MINI-BAG PLUS 50 ML IV SCH (04:32)
[2019-01-05] MEDS: ACETAMINOPHEN TAB 650MG DOSE (2X325MG) PO PRN (04:32)
[2019-01-05] MEDS: ALPRAZolam 0.25 MG TAB PO PRN ×3 (05:35→20:31)
[2019-01-05] MEDS: SODIUM CHLORIDE 0.9% INJ 10 ML SYR IV SCH ×2 (05:35→17:10)
[2019-01-05] MEDS: SLF 3 ML SYR IV SCH ×3 (05:40→22:00)
[2019-01-05] MEDS: IPRATROPIUM 0.5MG/ALBUTEROL 2.5MG INH SOL UD 3ML (DUONEB)(J7620) NEB SCH ×3 (06:06→21:11)
[2019-01-05 08:00] VITALS: BP 170/77
[2019-01-05] MEDS: VANCOMYCIN ORAL SOL 250MG/5ML ORAL SYRINGE PO SCH (08:55)
[2019-01-05] MEDS: HumaLOG INSULIN (NovoLOG) PER UNIT SC SCH ×4 (08:55→20:37)
[2019-01-05] MEDS: FUROSEMIDE 40 MG TAB PO SCH (08:55)
[2019-01-05] MEDS: DOCUSATE SODIUM 100 MG CAP PO SCH ×2 (08:55→20:32)
[2019-01-05] MEDS: FERROUS SULFATE 325MG TAB PO SCH (08:55)
[2019-01-05] MEDS: POTASSIUM CHLORIDE 10 MEQ SR TABLET PO SCH (08:55)
[2019-01-05] MEDS: ASPIRIN 81 MG ENTERIC TAB PO SCH (08:55)
[2019-01-05] MEDS: APIXABAN 5 MG TAB (ELIQUIS) PO SCH ×2 (08:56→20:31)
[2019-01-05] MEDS: OMEGA-3 1000MG CAPSULE PO SCH ×2 (08:56→20:31)
[2019-01-05] MEDS: OMEPRAZOLE 20 MG CAP PO SCH (08:56)
[2019-01-05] MEDS: SERTRALINE HCL 50 MG TAB PO SCH (08:56)
[2019-01-05 12:00] VITALS: BP 140/66
[2019-01-05] MEDS: BISOPROLOL FUMARATE 5 MG TAB PO SCH (12:12)
[2019-01-05] MEDS: FINASTERIDE 5 MG TAB PO SCH (12:12)
[2019-01-05] MEDS: FENOFIBRATE 145 MG TAB (TRICOR) PO SCH (12:12)
[2019-01-05] MEDS: LISINOPRIL 10 MG TAB PO SCH ×2 (12:13→20:32)
--- NOTE | 2019-01-05 13:28 | IPNPDOC ---
Subjective Date Seen The patient was seen on 01/05/19. Subjective Chief Complaint/HPI Patient lying in bed as I entered the room. He told me he is sick and wanted to be left alone Constitutional: Reports: Fatigue; Denies: Chills, Fever Pulmonary: Reports: Dyspnea, Cough Cardiovascular: Denies: Chest Pain, Palpitations, Orthopnea, Edema Gastrointestinal: Denies: Nausea, Vomiting, Abdominal Pain, Diarrhea, Constipation Psych: Reports: Other Psych (Irritable this morning ) Objective Physical Examination General Exam: Positive: Alert, No Acute Distress ENT Exam: Positive: Mucous membr. moist/pink Neck Exam: Positive: Supple; Negative: JVD Chest Exam: Positive: Rales (Bibasilar), Rhonchi (scattered throughout, slight improvement with cough) Heart Exam: Positive: Rate Normal, Irregular Rhythm, Murmurs Abdomen Exam: Positive: Normal bowel sounds, Soft; Negative: Tenderness, Hepatospenomegaly Extremity Exam: Positive: Edema (trace pitting pedal edema, slightly less pretibial) Skin Exam: Positive: Nl turgor and temperature; Negative: Rash Psych Exam: Positive: Mental status NL (alert and oriented x 3), Mood NL (irritable) Assessment /Plan Problems (1) Enterococcus faecalis infection Status: Acute Response to Treatment: Stable Discussed With: Nurse, Human Resources Benefits Administrator, Patient Problem Specific Plan: Monitor Clinically Problem Text: 01/05/18: Dr.. Zarate spoke with Dr. Rosas yesterday. WBC tagged scan was recommended. This will be performed tomorrow. Nuclear Medicine recommended patient be off abx for 24 hours prior to scan. Patient stable, WBC 6.5, afebrile, 12/31 BC negative x 5 days, BC 01/01 negative x 72 hours. We will hold abx tonight and resume them tomorrow. GI consult order placed. Call to Dr. Ugalde placed. He was in clinic and will return call once available. 01/04 Dr Zarate to speak with Dr Rosas today regarding risk of infection at graft site, I spoke with pt regarding consideration of colonoscopy, he has had this done with Dr Gaines in the past and is agreeable for repeat if necessary. 01/03 ANURAG without obvious vegetation although thickening of the valves was noted. He has had 2 Neg BC and therefore an order for PICC has been placed. 05/02 colonoscopy with Eder with mtp sessile polpys + tubular adenomas, rec repeat scope in 6 months, pt has declined. 08/31 LLE endarterectomy with Bovine tissue - Ralph 02/28 RLE fem endarterectomy, R fem/pop bypass with porpraten graft - Ralph address with attending how to proceed regarding identifying source, it is also important to note that Dr Grant doesn't feel endocarditis can be completely excluded d/t thickening of the valves 12/[address] Rudolph yesterday who called concerned regarding the pts prelim BC results, she was consulted for adjustment and recommendations regarding abx. Cardio has been consulted, Dr Grant has seen the patient. He plans to ANURAG probably later today. 12/31- [employer]- Both blood cx are positive for G+ bacteria. Last admission he had an E. faecalis bacteremia. It is VERY likely that the bacteria in his blood this time is the same. The fact that her has a persistent bacteremia leads to concerns for either a large and persistent colonic lesion ( e.g dysplastic polyp, or an endocarditis). Dr. Rudolph was consulted and has adjusted his abx while we clarify what is going on. (2) Anemia Status: Acute Response to Treatment: Worse Discussed With: Nurse, Human Resources Benefits Administrator, Patient Problem Specific Plan: Monitor Clinically, Repeat Labs Problem Text: 01/05/19: Hgb 8.6 this morning. We will continue to monitor. GI consulted. Patient has been on Eliquis. 01/04 Hgb stable overnight, cont to monitor. 01/03 Hgb slowing trending down s/p 2 units, monitor closely, OB has not been collected. 01/01 2 units of pRBCs ordered, Lasix to be given between each unit. f/u labs ordered, stool OB, Fe, ferritin, B12 folate (3) Diastolic CHF, chronic Status: Acute Response to Treatment: Stable Discussed With: Nurse, Human Resources Benefits Administrator, Patient Problem Text: 01/05/19: Appears compensated today 01/03 Lasix 40 mg daily, appears compensated 12/31 [facility] [place] Dr Grant has been consulted. Lasix IV 40 mg q12h, I remain unconvinced that his I & Os are accurate, listing 600 in yesterday and 1200 out. Cont to monitor, Scr increased to 1.5 today, baseline is 1.6-1.7, he will be getting 2 units of blood today and an order for Lasix 20 mg between each unit was placed. 12/30 Lasx IV q12h, I + Os appear to be inaccurate, spoke to nursing, slight bump in Scr, monitor, anticipate changing to HD Lasix tomorrow, 40 mg daily. Enc BARRON diet. 12/29/18: Started on Lasix 40mg IV q 12 hours with a net negative of 2L, 1800 cc fluid restriction Chest Xray Impression: Probable interstitial infiltrates. (4) Hypokalemia Status: Acute Response to Treatment: Improving Problem Text: 12/30 K + 3.8, cont with daily replacement while on IV lasix. 12/29/18: K+ 3.2. Replaced with K+ 40 meq x 1 today, repeat K+ level this afternoon. We will start K+ 40meq po q day and monitor (5) Chest wall pain Status: Acute Response to Treatment: Improving Discussed With: Nurse, Patient Problem Specific Plan: Repeat Tests Problem Text: 12/30 I did NOT palpate crepitations today or last week in office, Xray Neg for fractures. 12/29 He was complaining of chest pain. On examination he has tenderness on palpation over the R chest wall with increased "buoyancy" of the ribs and mild crepitations noted. He reports that Sharon Larson, R-PAC told him he had some rib fractures after a fall last week, but I don't see any radiographic documentation of this. I will order a right rib series for further evaluation. (6) CKD (chronic kidney disease), stage III Status: Chronic Response to Treatment: Stable Problem Text: : Stable. We will continue to monitor BUN/Cre 29/1.32, GFR 56 12/31 Scr 1.5, baseline 1.6, monitor. 12/30 Baseline Scr 1.6, today 1.35, cont with IV Lasix, monitor. 12/29/18: baseline Cre~1.6-1.7, GFR ~36-45. Today Cre 1.18, GFR >60, this is most likely d/t his dilutional status. We will monitor (7) Atrial fibrillation Status: Chronic Response to Treatment: Stable Problem Text: 12/29/18: Rate controlled on Bisoprolol 5mg daily. Currently on Eliquis 5 mg po bid (8) DM2 (diabetes mellitus, type 2) Status: Chronic Response to Treatment: Stable Problem Text: 12/29/18: Managed with Lantus 22 units q hs and Humalog sliding scale outpatient. He is currently being covered with mealtime insulin only. He is not NPO, but his fasting BGs have been 78, 99 and he has only required 2 units of coverage. We will monitor and make adjustments in regimen accordingly. (9) Diarrhea Status: Resolved Problem Text: 12/30 No recurrence of loose stools since admission. 12/29/18: Patient with hx of c-diff at his previously hospitalization about approx one month ago. GI panel pending. Plan/VTE VTE Prophylaxis Ordered?: Yes (Eliquis 5mg bid ) Plan Therapy: PT Anticipated Discharge: Sub Acute Rehab (Rec STR at d/c.) VS, I&O, 24H, Fishbone Vital Signs/I&O Vital Signs Date Time Temp Pulse Resp B/P (MAP) Pulse Ox O2 Delivery O2 Flow Rate FiO2 01/05/19 08:00 96.5 89 20 170/77 (108) 92 2.0 01/05/19 06:07 Nasal Cannula I&O- Last 24 Hours up to 6 AM 01/05/19 06:00 Intake Total 1550 ml Output Total 2395 ml Balance -845 ml Laboratory Data 24H LABS Laboratory Tests 2 01/04/19 11:34: Bedside Glucose (Misc Panel) 284H 01/04/19 16:11: Bedside Glucose (Misc Panel) 312H 01/04/19 19:49: Bedside Glucose (Misc Panel) 274H 01/05/19 03:28: Immature Granulocyte % (Auto) 1.1, White Blood Count 6.5, Red Blood Count 2.99L, Hemoglobin 8.6L, Hematocrit 27.5L, Mean Corpuscular Volume 92.0, Mean Corpuscular Hemoglobin 28.8, Mean Corpuscular Hemoglobin Concent 31.3L, Red Cell Distribution Width 17.4H, Platelet Count 269, Neutrophils (%) (Auto) 79.4H, Lymphocytes (%) (Auto) 9.6L, Monocytes (%) (Auto) 9.4H, Eosinophils (%) (Auto) 0.2, Basophils (%) (Auto) 0.3, Neutrophils # (Auto) 5.2, Lymphocytes # (Auto) 0.6L, Monocytes # (Auto) 0.6, Eosinophils # (Auto) 0.0, Basophils # (Auto) 0.0, Nucleated Red Blood Cells % (auto) 0.0, Anion Gap 5L, Glomerular Filtration Rate 56.3, Blood Urea Nitrogen 29H, Creatinine 1.32H, Sodium Level 132L, Potassium Level 4.6, Chloride Level 95L, Carbon Dioxide Level 32, Calcium Level 8.4L, Aspartate Amino Transf (AST/SGOT) 13, Alanine Aminotransferase (ALT/SGPT) 12, Alkaline Phosphatase 52, Total Bilirubin 0.4, Total Protein 6.4, Albumin 1.9L, Albumin/Globulin Ratio 0.42L CBC/BMP Laboratory Tests 01/05/19 03:28 Red Blood Count 2.99 L, Mean Corpuscular Volume 92.0, Mean Corpuscular Hemoglobin 28.8, Mean Corpuscular Hemoglobin Concent 31.3 L, Red Cell Di stribution Width 17.4 H, Neutrophils (%) (Auto) 79.4 H, Lymphocytes (%) (Auto) 9.6 L, Monocytes (%) (Auto) 9.4 H, Eosinophils (%) (Auto) 0.2, Basophils (%) (Auto) 0.3, Neutrophils # (Auto) 5.2, Lymphocytes # (Auto) 0.6 L, Monocytes # (Auto) 0.6, Eosinophils # (Auto) 0.0, Basophils # (Auto) 0.0, Calcium Level 8.4 L, Aspartate Amino Transf (AST/SGOT) 13, Alanine Aminotransferase (ALT/SGPT) 12, Alkaline Phosphatase 52, Total Bilirubin 0.4, Total Protein 6.4, Albumin 1.9 L Microbiology Microbiology 01/01/19 Blood Culture - Preliminary, Resulted No Growth after 72 hours. All specime... 12/31/18 Blood Culture - Final, Complete NO GROWTH AFTER 5 DAYS 12/28/18 Blood Culture - Final, Complete Enterococcus Faecalis 12/28/18 Blood Culture - Final, Complete Enterococcus Faecalis 12/29/18 MRSA Screen - Final, Complete CRISTIN DAWN Jan 05, 2019 10:01
[2019-01-05 16:00] VITALS: BP 131/61
[2019-01-05 20:30] VITALS: BP 132/60
[2019-01-05] MEDS: ROSUVASTATIN 10 MG TAB (CRESTOR) PO SCH (20:32)
[2019-01-05] MEDS: TAMSULOSIN 0.4 MG CAP PO SCH (20:32)
[2019-01-05] MEDS: ACETAMINOPHEN 500 MG TAB PO SCH (20:32)
[2019-01-05] MEDS: LATANOPROST 0.005% OPHTH SOLN 2.5 ML OU SCH (20:35)
[2019-01-05] MEDS ORDERED: zolPIDEM TARTRATE 5 MG TAB PO ONE (22:00)
[2019-01-05 22:15] VITALS: BP 124/58
--- NOTE | 2019-01-05 23:38 | CR.PDOC ---
General Date of Consultation: Jan 05, 2019 Referring Provider: EZIO ROJAS DO Attending Physician: IQRA MCNAIR MD Consultation Primary physician/ hospitalist: Dr. Rojas Reason for consult: Drop in hemoglobin and hematocrit. HPI: 73-year-old male patient with HTN, HLD, COPD, ( on Home O2), DM type 2 ( on insulin), CAD s/p NV and CABG in 2009, PVD, Prior MANDY, ( last colonoscopy April 2017 - by Dr. Gaines, showed multiple polyps which were adenomatous tubular adenomas, grade 2 diastolic dysfunction with moderate mitral insufficiency and mild aortic insufficiency, presented to ER for gradually worsening shortness of breath and lower extremity edema. Patient was admitted with suspected CHF exacerbation, noted with Enterococcus faecalis bacteremia (second episode, being followed by ID), noted with gradually worsening H/H. GI was consulted for the same. Patient reports having blood in the stools for a few days prior to hospitalization but denies any blood for the past 2-3 days. Patient denies any other GI symptoms. Pertinent negative GI symptoms: Patient denies nausea, vomiting, diarrhea, abdominal pain, loss of appetite, early satiety or unintentional weight loss. No history of hematemesis, melena or hematochezia. Patient reports regular bowel movements. Review of Systems: GI: as stated above CVS: As stated above RS: has Shortness of breath, but No Wheezing, no cough REMOTE [employer]ELOPER: No dizziness, No motor weakness, No sensory problems Hematology: No bruising, No gum bleeding, Musculoskeletal: No joint pain, ambulating well. Skin: No rash : No hematuria, No burning sensation of the urine ENT: No ear discharge/ pain, No dysphagia. Eyes: No photophobia. Home medications: reviewed. Antithrombotic agents -on aspirin 81 MG and Apixaban 5 MG twice daily Medical h/o: As above. Surgical h/o: None on abdomen. Social h/o: Alcohol-denies, tobacco-prior smoker, IVDA/ drugs-denies. Family h/o of GI cancers -noncontributory Prior Endoscopies: --- EGD - many years ago by Dr. Gaines - for MANDY - normal as per patient --- Colonoscopy -in - by Dr. Gaines for multiple prior colon polyps -- noted multiple tubular adenomas, removed and had placement of clips. Prior GI evaluation: Follows with Dr. Gaines Exam: Vitals: reviewed General: Alert and oriented x 3, Mild distress due to Shortness of breath. ( on nasal cannula) HEENT: NO pallor, no icterus. Normal oropharynx, NO cervical lymph nodes. Chest: symmetric with bilateral clear air entry with bilateral wheezing present., CVS: S1, S2 heard, normal, no murmurs . Abdomen: non-distended, obese, two surgical scars present in abdomen, soft, non-tender, palpable hepatosplenomegaly. normal bowel sounds heard. Rectal exam: Patient refused. Extremities: minimal pedal edema, pulses palpable. [employer]ELOPER: no focal motor or sensory deficits. Moves all extremities Skin: echymotic rash thoughout arms and over legs. Labs: reviewed. Imaging tests: reviewed Cr- 1.32 ( GFR <60). Impression: - Gradual drop in H/H with history of blood in with stools which stopped for the last 2-3 days as per patient and prior Colonoscopy showed multiple tubular adenomas ( removed). DDx- Hemorrhoidal bleeding vs dilutional/repeated phlebotomies vs AVM vs Diverticular vs Colon polyps. No overt active rectal bleeding at this time. - Enterococcus faecalis bacteremia -- needs further evaluation ( seen by ID team). Recommendations: - Patient educated about the test results, possible differential diagnoses and All questions answered. - Monitor H/ H and transfuse if needed to keep hemoglobin around 9gm/ dL. Minimize the phlebotomies. - As patient is having suspected endocarditis and still having shortness of breath, will consider optimization of cardiac status and clearance by cardiology if patient can be safely be off Apixaban for atleast 3 days prior to Colonoscopy procedure. Urgent Colonoscopy if overt active GI bleeding. - Clear liquid diet tomorrow pending above. - Will schedule for Colonoscopy based on the above. The procedure, indications, risks (bleeding, perforation, infection, hypotension, respiratory depression, allergy, need for endotracheal intubation, surgery, colostomy, cardiac arrest, even ), benefits, limitations (e.g., missing a lesion), and all other alternatives (including no intervention) were explained to the patient who understood and agreed for the procedure. Plan of care discussed with patient and primary team. Patient verbalized understanding and agreed with the plan. Allergies Coded Allergies: Sulfa Drugs (Verified Allergy, Intermediate, RASH, 12/01/18) Sulfa Drugs Cross Reactors (Verified Allergy, Intermediate, RASH, 12/01/18) Home Medications Scheduled (Incruse Ellipta) 62.5 Mcg/Inh Inh, 1 PUFF INH DAILY, (Reported) (Tammy-Bid Probiotic) 1 Tab Tab, 2 TAB PO DAILY, (Reported) Acetaminophen (Tylenol Extra Strength) 500 Mg Tab, 1,000 MG PO QHS, (Reported) Apixaban Base (Eliquis) 5 Mg Tab, 5 MG PO BID, (Reported) Aspirin (Aspirin EC) 81 Mg Tabec, 81 MG PO DAILY, (Reported) Bisoprolol Fumarate (Bisoprolol Fumarate) 5 Mg Tab, 5 MG PO DAILY, (Reported) TAKES AT NOON Docusate Sodium (Docusate Sodium) 100 Mg Cap, 100 MG PO BID, (Reported) Fenofibrate (Fenofibrate) 160 Mg Tab, 160 MG PO DAILY, (Reported) TAKES AT NOON Ferrous Sulfate (Ferrous Sulfate) 325 Mg Tab, 325 MG PO DAILY, (Reported) Finasteride (Proscar) 5 Mg Tab, 5 MG PO DAILY, (Reported) TAKES AT NOON Fish Oil (Fish Oil) 1,000 Mg Cap, 1,000 MG PO BID, (Reported) Furosemide (Furosemide) 20 Mg Tab, 40 MG PO DAILY, (Reported) Insulin Glargine (Lantus) 1 Units/0.01 Ml Susp, 22 UNITS SC QHS, (Reported) Insulin Human Lispro (Humalog) 1 Units/0.01 Ml Inj, 0 SC ACHS, (Reported) PER SLIDING SCALE Latanoprost (Xalatan) 0.005 % Sudhir, 1 DROP OU QHS, (Reported) Lidocaine (Lidocaine) 5 % Pad, 2 PATCH TOP QHS, (Reported) APPLY TO BOTH SHOULDERS Lisinopril (Lisinopril) 10 Mg Tab, 10 MG PO BID, (Reported) TAKES NOON AND BEDTIME Omeprazole (Omeprazole) 20 Mg Cap, 20 MG PO DAILY, (Reported) Rosuvastatin (Crestor) 10 Mg Tab, 10 MG PO QHS, (Reported) Salmeterol/Fluticasone (Advair Diskus 500-50 Mcg/Dose) 28 Puff/Inhaler Aerp, 1 PUFF INH BID, (Reported) Sertraline Hcl (Zoloft) 50 Mg Tab, 50 MG PO DAILY, (Reported) Tamsulosin Hydrochloride (Flomax) 0.4 Mg Cap, 0.4 MG PO QHS, (Reported) Trazodone HCl (Trazodone HCl) 100 Mg Tab, 100 MG PO QHS, (Reported) Scheduled PRN Acetaminophen (Acetaminophen) 325 Mg Tab, 650 MG PO Q4H PRN for PAIN, (Reported) Albuterol/Ipratropium (Combivent Respimat 20-100 Mcg/Act) 1 Aer Aer, 1 PUFF INH QID PRN for SHORTNESS OF BREATH, (Reported) Albuterol/Ipratropium (Ipratropium [place]/Albut 0.5-2.5 (3) mg/3Ml) 1 Sudhir Sudhir, 1 SUDHIR INH QID PRN for SHORTNESS OF BREATH, (Reported) Alprazolam (Xanax) 0.25 Mg Tab, 0.25 MG PO TID PRN for ANXIETY, (Reported) Artificial Tears (Artificial Tears) 1.4 % Sudhir, 1 DROP OU QID PRN for DRY EYES, (Reported) Guaifenesin (Mucinex) 600 Mg Tab, 600 MG PO Q12H PRN for CONGESTION, (Reported) IQRA MCNAIR MD Jan 05, 2019 23:38
[2019-01-06] MEDS: IPRATROPIUM 0.5MG/ALBUTEROL 2.5MG INH SOL UD 3ML (DUONEB)(J7620) NEB SCH ×4 (02:00→20:52)
[2019-01-06 04:29] VITALS: BP 128/64
[2019-01-06] MEDS: ACETAMINOPHEN TAB 650MG DOSE (2X325MG) PO PRN (04:30)
[2019-01-06] MEDS: ALPRAZolam 0.25 MG TAB PO PRN (04:30)
[2019-01-06] MEDS: IPRATROPIUM 0.5MG/ALBUTEROL 2.5MG INH SOL UD 3ML (DUONEB)(J7620) NEB PRN (06:18)
[2019-01-06] MEDS: SODIUM CHLORIDE 0.9% INJ 10 ML SYR IV SCH ×2 (06:45→17:41)
[2019-01-06 07:07] LABS: BASO % 0.2 % (0.0-1.0); EOS % 0.2 % (0.0-3.0); HEMOGLOBIN 8.3 g/dl (13.5-17.5); LYMPH # 0.8 10^3/uL (1.5-4.5); LYMPH % 13.8 % (24.0-44.0); MEAN CORPUSCULAR HEMOGLOBIN 28.2 pg (27.0-33.0); MEAN CORPUSCULAR HGB CONC 30.7 g/dl (32.0-36.5); MEAN CORPUSCULAR VOLUME 91.8 fl (80.0-96.0); MONO # 0.6 10^3/uL (0.0-0.8); MONO % 10.8 % (0.0-5.0); NEUTROPHILS # 4.3 10^3/uL (1.8-7.7); NEUTROPHILS % 73.8 % (36.0-66.0); PLATELET COUNT, AUTOMATED 277 10^3/uL (150-450); RED BLOOD COUNT 2.94 10^6/uL (4.30-6.10); WHITE BLOOD COUNT 5.8 10^3/uL (4.0-10.0)
[2019-01-06 07:24] LABS: BLOOD UREA NITROGEN 23 MG/DL (7-18); CALCIUM LEVEL 8.7 MG/DL (8.8-10.2); CARBON DIOXIDE LEVEL 31 MEQ/L (21-32); CHLORIDE LEVEL 98 MEQ/L (98-107); CREATININE FOR GFR 1.18 MG/DL (0.70-1.30); GLOMERULAR FILTRATION RATE > 60.0 (>42); GLUCOSE, FASTING 132 MG/DL (70-100); POTASSIUM SERUM 4.5 MEQ/L (3.5-5.1); SODIUM LEVEL 134 MEQ/L (136-145)
[2019-01-06] MEDS: HumaLOG INSULIN (NovoLOG) PER UNIT SC SCH ×4 (07:30→20:47)
[2019-01-06 08:00] VITALS: BP 124/58
[2019-01-06] MEDS: OMEPRAZOLE 20 MG CAP PO SCH (09:00)
[2019-01-06] MEDS: SERTRALINE HCL 50 MG TAB PO SCH (09:00)
[2019-01-06] MEDS: ASPIRIN 81 MG ENTERIC TAB PO SCH (09:00)
[2019-01-06] MEDS: DOCUSATE SODIUM 100 MG CAP PO SCH ×2 (09:00→20:45)
[2019-01-06] MEDS: POTASSIUM CHLORIDE 10 MEQ SR TABLET PO SCH (09:02)
[2019-01-06] MEDS: OMEGA-3 1000MG CAPSULE PO SCH ×2 (09:02→20:46)
[2019-01-06] MEDS: FERROUS SULFATE 325MG TAB PO SCH (09:02)
[2019-01-06] MEDS: FUROSEMIDE 40 MG TAB PO SCH (09:03)
[2019-01-06] MEDS: APIXABAN 5 MG TAB (ELIQUIS) PO SCH ×2 (09:03→20:45)
[2019-01-06] MEDS: AMPICILLIN SOD 2 GM in D5W MINI-BAG PLUS 100 ML IV SCH ×5 (10:00→22:10)
--- NOTE | 2019-01-06 10:21 | IPNPDOC ---
Subjective Date Seen The patient was seen on 01/06/19. Subjective Chief Complaint/HPI Patient lying in bed when I entered the room. He had a sitter at his beside. Apparently, he had some increased agitation throughout the night. Patient was alert to person, time and place. He does have bouts of confusion. Constitutional: Denies: Chills, Fever Skin: Reports: Other (bruising on arms) Pulmonary: Reports: Dyspnea, Cough; Denies: Pleuritic Chest Pain Cardiovascular: Denies: Chest Pain, Palpitations, Edema Gastrointestinal: Denies: Nausea, Abdominal Pain, Constipation, Melena, Hematochezia Psych: Reports: Other Psych (Cantankerous ) Objective Physical Examination General Exam: Positive: Alert, No Acute Distress ENT Exam: Positive: Mucous membr. moist/pink Neck Exam: Positive: Supple; Negative: JVD Chest Exam: Positive: Rhonchi (scattered throughout, slight improvement with cough); Negative: Rales, Wheezing Heart Exam: Positive: Rate Normal, Irregular Rhythm, Murmurs Abdomen Exam: Positive: Normal bowel sounds, Soft; Negative: Tenderness, Hepatospenomegaly Extremity Exam: Negative: Edema Skin Exam: Positive: Nl turgor and temperature; Negative: Rash Psych Exam: Positive: Mental status NL (alert and oriented x 3), Mood NL (irritable) Assessment /Plan Problems (1) Enterococcus faecalis infection Status: Acute Response to Treatment: Stable Discussed With: Nurse, Biosolids Management Technician, Patient Problem Specific Plan: Monitor Clinically Problem Text: 01/06/19: Tagged WBC scan is scheduled for today. Abx are on hold until scan is complete. Patient remains afebrile. WBC 5.2. BC from 01/01 remain negative after 5 days. 01/05/18: Dr.. Zarate spoke with Dr. Rosas yesterday. WBC tagged scan was recommended. This will be performed tomorrow. Nuclear Medicine recommended patient be off abx for 24 hours prior to scan. Patient stable, WBC 6.5, afebrile, 12/31 BC negative x 5 days, BC 01/01 negative x 72 hours. We will hold abx tonight and resume them tomorrow. GI consult order placed. Call to Dr. Ugalde placed. He was in clinic and will return call once available. 01/04 Dr Zarate to speak with Dr Rosas today regarding risk of infection at graft site, I spoke with pt regarding consideration of colonoscopy, he has had this done with Dr Gaines in the past and is agreeable for repeat if necessary. 01/03 ANURAG without obvious vegetation although thickening of the valves was noted. He has had 2 Neg BC and therefore an order for PICC has been placed. 05/02 colonoscopy with Eder with mtp sessile polpys + tubular adenomas, rec repeat scope in 6 months, pt has declined. 08/31 LLE endarterectomy with Bovine tissue - Ralph 02/28 RLE fem endarterectomy, R fem/pop bypass with porpraten graft - Ralph address with attending how to proceed regarding identifying source, it is also important to note that Dr Grant doesn't feel endocarditis can be completely excluded d/t thickening of the valves 12/[address] Rudolph yesterday who called concerned regarding the pts prelim BC results, she was consulted for adjustment and recommendations regarding abx. Cardio has been consulted, Dr Grant has seen the patient. He plans to ANURAG probably later today. 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 Last admission he had an E. faecalis bacteremia. It is VERY likely that the bacteria in his blood this time is the same. The fact that her has a persistent bacteremia leads to concerns for either a large and persistent colonic lesion ( e.g dysplastic polyp, or an endocarditis). Dr. Rudolph was consulted and has adjusted his abx while we clarify what is going on. (2) Anemia Status: Acute Response to Treatment: Worse Discussed With: Nurse, Biosolids Management Technician, Patient Problem Specific Plan: Monitor Clinically, Repeat Labs Problem Text: 01/06/19: Hgb 8.3 this morning, continues to trend down. We will need to continue to monitor this closely and transfuse if indicated. GI was consulted yesterday. Recommendations as follows: - Monitor H/ H and transfuse if needed to keep hemoglobin around 9gm/ dL. Minimize the phlebotomies - As patient is having suspected endocarditis and still having shortness of breath, will consider optimization of cardiac status and clearance by cardiology if patient can be safely be off Apixaban for atleast 3 days prior to Colonoscopy procedure. Urgent Colonoscopy if overt active GI bleeding - Clear liquid diet tomorrow pending above - Will schedule for Colonoscopy based on the above 01/05/19: Hgb 8.6 this morning. We will continue to monitor. GI consulted. Patient has been on Eliquis. 01/04 Hgb stable overnight, cont to monitor. 01/03 Hgb slowing trending down s/p 2 units, monitor closely, OB has not been collected. 01/01 2 units of pRBCs ordered, Lasix to be given between each unit. f/u labs ordered, stool OB, Fe, ferritin, B12 folate (3) Diastolic CHF, chronic Status: Acute Response to Treatment: Stable Discussed With: Nurse, Biosolids Management Technician, Patient Problem Text: 01/06/19: Appears compensated on exam today. Peripheral edema has improved. Patient with a negative -1285 from I's & O's. Renal function remains stable 01/05/19: Appears compensated today 01/03 Lasix 40 mg daily, appears compensated 12/31 [facility] [place] been [place]. Lasix IV 40 mg q12h, I remain unconvinced that his I & Os are accurate, listing 600 in yesterday and 1200 out. Cont to monitor, Scr increased to 1.5 today, baseline is 1.6-1.7, he will be getting 2 units of blood today and an order for Lasix 20 mg between each unit was placed. 12/30 Lasx IV q12h, I + Os appear to be inaccurate, spoke to nursing, slight bump in Scr, monitor, anticipate changing to HD Lasix tomorrow, 40 mg daily. Enc BARRON diet. 12/29/18: Started on Lasix 40mg IV q 12 hours with a net negative of 2L, 1800 cc fluid restriction Chest Xray Impression: Probable interstitial infiltrates. (4) Hypokalemia Status: Acute Response to Treatment: Improving Problem Text: 12/30 K + 3.8, cont with daily replacement while on IV lasix. 12/29/18: K+ 3.2. Replaced with K+ 40 meq x 1 today, repeat K+ level this afternoon. We will start K+ 40meq po q day and monitor (5) Chest wall pain Status: Acute Response to Treatment: Improving Discussed With: Nurse, Patient Problem Specific Plan: Repeat Tests Problem Text: 12/30 I did NOT palpate crepitations today or last week in office, Xray Neg for fractures. 12/29 He was complaining of chest pain. On examination he has tenderness on palpation over the R chest wall with increased "buoyancy" of the ribs and mild crepitations noted. He reports that Sharon Larson, R-PAC told him he had some rib fractures after a fall last week, but I don't see any radiographic documentation of this. I will order a right rib series for further evaluation. (6) CKD (chronic kidney disease), stage III Status: Chronic Response to Treatment: Stable Problem Text: 01/06/19: Remains stable : Stable. We will continue to monitor BUN/Cre 29/1.32, GFR 56 12/31 Scr 1.5, baseline 1.6, monitor. 12/30 Baseline Scr 1.6, today 1.35, cont with IV Lasix, monitor. 12/29/18: baseline Cre~1.6-1.7, GFR ~36-45. Today Cre 1.18, GFR >60, this is most likely d/t his dilutional status. We will monitor (7) Atrial fibrillation Status: Chronic Response to Treatment: Stable Problem Text: 12/29/18: Rate controlled on Bisoprolol 5mg daily. Currently on Eliquis 5 mg po bid (8) DM2 (diabetes mellitus, type 2) Status: Chronic Response to Treatment: Stable Problem Text: 12/29/18: Managed with Lantus 22 units q hs and Humalog sliding scale outpatient. He is currently being covered with mealtime insulin only. He is not NPO, but his fasting BGs have been 78, 99 and he has only required 2 units of coverage. We will monitor and make adjustments in regimen accordingly. (9) Diarrhea Status: Resolved Problem Text: 12/30 No recurrence of loose stools since admission. 12/29/18: Patient with hx of c-diff at his previously hospitalization about approx one month ago. GI panel pending. Plan/VTE VTE Prophylaxis Ordered?: Yes (Eliquis 5mg bid ) Plan Therapy: PT Anticipated Discharge: Sub Acute Rehab (Rec STR at d/c.) VS, I&O, 24H, Fishbone Vital Signs/I&O Vital Signs Date Time Temp Pulse Resp B/P (MAP) Pulse Ox O2 Delivery O2 Flow Rate FiO2 01/06/19 04:29 98.1 83 24 128/64 (85) 99 2.0 01/05/19 06:07 Nasal Cannula I&O- Last 24 Hours up to 6 AM 01/06/19 06:00 Intake Total 1515 ml Output Total 2715 ml Balance -1200 ml Laboratory Data 24H LABS Laboratory Tests 2 01/05/19 11:48: Bedside Glucose (Misc Panel) 283H 01/05/19 17:00: Bedside Glucose (Misc Panel) 240H 01/05/19 20:29: Bedside Glucose (Misc Panel) 204H 01/06/19 06:47: Immature Granulocyte % (Auto) 1.2, White Blood Count 5.8, Red Blood Count 2.94L, Hemoglobin 8.3L, Hematocrit 27.0L, Mean Corpuscular Volume 91.8, Mean Corpuscular Hemoglobin 28.2, Mean Corpuscular Hemoglobin Concent 30.7L, Red Cell Distribution Width 17.3H, Platelet Count 277, Neutrophils (%) (Auto) 73.8H, Lymphocytes (%) (Auto) 13.8L, Monocytes (%) (Auto) 10.8H, Eosinophils (%) (Auto) 0.2, Basophils (%) (Auto) 0.2, Neutrophils # (Auto) 4.3, Lymphocytes # (Auto) 0.8L, Monocytes # (Auto) 0.6, Eosinophils # (Auto) 0.0, Basophils # (Auto) 0.0, Nucleated Red Blood Cells % (auto) 0.0, Anion Gap 5L, Glomerular Filtration Rate > 60.0, Blood Urea Nitrogen 23H, Creatinine 1.18, Sodium Level 134L, Potassium Level 4.5, Chloride Level 98, Carbon Dioxide Level 31, Calcium Level 8.7L CBC/BMP Laboratory Tests 01/06/19 06:47 Red Blood Count 2.94 L, Mean Corpuscular Volume 91.8, Mean Corpuscular Hemoglobin 28.2, Mean Corpuscular Hemoglobin Concent 30.7 L, Red Cell Distribution Width 17.3 H, Neutrophils (%) (Auto) 73.8 H, Lymphocytes (%) (Auto) 13.8 L, Monocytes (%) (Auto) 10.8 H, Eosinophils (%) (Auto) 0.2, Basophils (%) (Auto) 0.2, Neutrophils # (Auto) 4.3, Lymphocytes # (Auto) 0.8 L, Monocytes # (Auto) 0.6, Eosinophils # (Auto) 0.0, Basophils # (Auto) 0.0, Calcium Level 8.7 L Microbiology Microbiology 01/01/19 Blood Culture - Final, Complete NO GROWTH AFTER 5 DAYS 12/31/18 Blood Culture - Final, Complete NO GROWTH AFTER 5 DAYS 12/28/18 Blood Culture - Final, Complete Enterococcus Faecalis 12/28/18 Blood Culture - Final, Complete Enterococcus Faecalis 12/29/18 MRSA Screen - Final, Complete CRISTIN DAWN Jan 06, 2019 08:15
[2019-01-06 12:00] VITALS: BP 118/64
[2019-01-06] MEDS: FINASTERIDE 5 MG TAB PO SCH (13:13)
[2019-01-06] MEDS: BISOPROLOL FUMARATE 5 MG TAB PO SCH (13:14)
[2019-01-06] MEDS: LISINOPRIL 10 MG TAB PO SCH ×2 (13:14→20:46)
[2019-01-06] MEDS: FENOFIBRATE 145 MG TAB (TRICOR) PO SCH (13:14)
[2019-01-06] MEDS ORDERED: ONDANSETRON 4MG/2ML VIAL (J2405) IV ONE (13:15)
[2019-01-06 16:00] VITALS: BP 110/52
[2019-01-06] MEDS: VANCOMYCIN ORAL SOL 250MG/5ML ORAL SYRINGE PO SCH ×2 (17:42→20:45)
[2019-01-06] MEDS: cefTRIAXone SOD 2 GM in D5W MINI-BAG PLUS 50 ML IV SCH (17:44)
[2019-01-06 20:26] VITALS: BP 116/56
[2019-01-06] MEDS: TAMSULOSIN 0.4 MG CAP PO SCH (20:45)
[2019-01-06] MEDS: ROSUVASTATIN 10 MG TAB (CRESTOR) PO SCH (20:45)
[2019-01-06] MEDS: LATANOPROST 0.005% OPHTH SOLN 2.5 ML OU SCH (20:47)
[2019-01-06] MEDS: ACETAMINOPHEN 500 MG TAB PO SCH (20:47)
[2019-01-06 23:38] VITALS: BP 111/53
[2019-01-07] VITALS (11 sets, daily range): BP systolic 119–157; BP diastolic 54–75
[2019-01-07] MEDS: ALPRAZolam 0.25 MG TAB PO PRN ×2 (01:37→22:59)
[2019-01-07] MEDS: AMPICILLIN SOD 2 GM in D5W MINI-BAG PLUS 100 ML IV SCH ×6 (01:38→20:47)
[2019-01-07] MEDS: IPRATROPIUM 0.5MG/ALBUTEROL 2.5MG INH SOL UD 3ML (DUONEB)(J7620) NEB SCH ×4 (02:00→19:50)
[2019-01-07] MEDS: cefTRIAXone SOD 2 GM in D5W MINI-BAG PLUS 50 ML IV SCH ×2 (04:34→16:30)
[2019-01-07 04:52] LABS: BASO % 0.3 % (0.0-1.0); EOS % 0.3 % (0.0-3.0); LYMPH # 0.9 10^3/uL (1.5-4.5); LYMPH % 13.9 % (24.0-44.0); MEAN CORPUSCULAR HEMOGLOBIN 28.5 pg (27.0-33.0); MEAN CORPUSCULAR HGB CONC 30.8 g/dl (32.0-36.5); MEAN CORPUSCULAR VOLUME 92.5 fl (80.0-96.0); MONO # 0.6 10^3/uL (0.0-0.8); MONO % 9.4 % (0.0-5.0); NEUTROPHILS # 4.8 10^3/uL (1.8-7.7); NEUTROPHILS % 75.2 % (36.0-66.0); PLATELET COUNT, AUTOMATED 293 10^3/uL (150-450); RED BLOOD COUNT 2.81 10^6/uL (4.30-6.10); WHITE BLOOD COUNT 6.4 10^3/uL (4.0-10.0)
[2019-01-07 05:18] LABS: CALCIUM LEVEL 8.2 MG/DL (8.8-10.2); CREATININE FOR GFR 1.28 MG/DL (0.70-1.30); GLOMERULAR FILTRATION RATE 58.3 (>42); POTASSIUM SERUM 4.5 MEQ/L (3.5-5.1)
[2019-01-07] MEDS: ACETAMINOPHEN TAB 650MG DOSE (2X325MG) PO PRN ×2 (05:59→16:36)
[2019-01-07] MEDS: SODIUM CHLORIDE 0.9% INJ 10 ML SYR IV SCH ×2 (06:00→17:08)
[2019-01-07] MEDS: POTASSIUM CHLORIDE 10 MEQ SR TABLET PO SCH (08:18)
[2019-01-07] MEDS: HumaLOG INSULIN (NovoLOG) PER UNIT SC SCH ×4 (08:18→20:08)
[2019-01-07] MEDS: VANCOMYCIN ORAL SOL 250MG/5ML ORAL SYRINGE PO SCH ×2 (08:19→20:38)
[2019-01-07] MEDS: APIXABAN 5 MG TAB (ELIQUIS) PO SCH ×2 (08:19→20:39)
[2019-01-07] MEDS: SERTRALINE HCL 50 MG TAB PO SCH (08:19)
[2019-01-07] MEDS: OMEPRAZOLE 20 MG CAP PO SCH (08:19)
[2019-01-07] MEDS: ASPIRIN 81 MG ENTERIC TAB PO SCH (08:19)
[2019-01-07] MEDS: FUROSEMIDE 40 MG TAB PO SCH (08:19)
[2019-01-07] MEDS: OMEGA-3 1000MG CAPSULE PO SCH ×2 (08:19→20:38)
[2019-01-07] MEDS: DOCUSATE SODIUM 100 MG CAP PO SCH ×2 (08:19→20:38)
[2019-01-07] MEDS: FERROUS SULFATE 325MG TAB PO SCH (08:19)
--- NOTE | 2019-01-07 08:54 | IPNPDOC ---
Subjective Date Seen The patient was seen on 01/07/19. Subjective Chief Complaint/HPI Patient lying in be comfortably as I entered the room. Patient reports be feeling better. He states he slept better last night. Constitutional: Denies: Chills, Fever Pulmonary: Reports: Dyspnea, Cough; Denies: Pleuritic Chest Pain Cardiovascular: Denies: Chest Pain, Palpitations, Orthopnea, Edema Gastrointestinal: Denies: Nausea, Vomiting, Abdominal Pain Psych: Reports: Mood Normal Objective Physical Examination General Exam: Positive: Alert, No Acute Distress ENT Exam: Positive: Mucous membr. moist/pink Neck Exam: Positive: Supple; Negative: JVD Chest Exam: Positive: Rhonchi (scattered throughout, slight improvement with cough); Negative: Rales, Wheezing Heart Exam: Positive: Rate Normal, Irregular Rhythm, Murmurs Abdomen Exam: Positive: Normal bowel sounds, Soft; Negative: Tenderness, Hepatospenomegaly Extremity Exam: Negative: Edema Skin Exam: Positive: Nl turgor and temperature; Negative: Rash Psych Exam: Positive: Mental status NL (alert and oriented x 3), Mood NL (irritable) Assessment /Plan Assessment Tagged WBC scan shows some uptake R leg, but significant uptake L shoulder. Exam shows significant effusion L shoulder. Likely would benefit from ortho consult and tapped joint tomorrow. If cardiology clears, plan colonoscopy early next week. -- CDT Problems (1) Enterococcus faecalis infection Status: Acute Response to Treatment: Stable Discussed With: Nurse, Coagulating Bath Operator, Patient Problem Specific Plan: Monitor Clinically Problem Text: 01/07/19: Tagged WBC scan results pending. Afebrile. WBC 6.4. D9 Ampicilling and Ceftriaxone. Patient also on po Vancomycin. Colonoscopy pending cardiology clearance and patient's ability to hold Eliquis for [address] Schwartz this morning. He will come see patient today for clearance. I spoke with Dr. Ugalde and he will place order for prep to start on Thursday with plan for colonoscopy on Thursday. Patient will continue liquid diet. 01/06/19: Tagged WBC scan is scheduled for today. Abx are on hold until scan is complete. Patient remains afebrile. WBC 5.2. BC from 01/01 remain negative after 5 days. 01/05/18: Dr.. Zarate spoke with Dr. Rosas yesterday. WBC tagged scan was recommended. This will be performed tomorrow. Nuclear Medicine recommended patient be off abx for 24 hours prior to scan. Patient stable, WBC 6.5, afebrile, 12/31 BC negative x 5 days, BC 01/01 negative x 72 hours. We will hold abx tonight and resume them tomorrow. GI consult order placed. Call to Dr. Ugalde placed. He was in clinic and will return call once available. 01/04 Dr Zarate to speak with Dr Rosas today regarding risk of infection at graft site, I spoke with pt regarding consideration of colonoscopy, he has had this done with Dr Gaines in the past and is agreeable for repeat if necessary. 01/03 ANURAG without obvious vegetation although thickening of the valves was noted. He has had 2 Neg BC and therefore an order for PICC has been placed. 05/02 colonoscopy with Eder with mtp sessile polpys + tubular adenomas, rec repeat scope in 6 months, pt has declined. 08/31 LLE endarterectomy with Bovine tissue - Ralph 02/28 RLE fem endarterectomy, R fem/pop bypass with porpraten graft - Ralph address with attending how to proceed regarding identifying source, it is also important to note that Dr Grant doesn't feel endocarditis can be completely excluded d/t thickening of the valves 12/[address] Rudolph yesterday who called concerned regarding the pts prelim BC results, she was consulted for adjustment and recommendations rega rding abx. Cardio has been consulted, Dr Grant has seen the patient. He plans to ANURAG probably later today. 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 Last admission he had an E. faecalis bacteremia. It is VERY likely that the bacteria in his blood this time is the same. The fact that her has a persistent bacteremia leads to concerns for either a large and persistent colonic lesion ( e.g dysplastic polyp, or an endocarditis). Dr. Rudolph was consulted and has adjusted his abx whi le we clarify what is going on. (2) Anemia Status: Acute Response to Treatment: Worse Discussed With: Nurse, Coagulating Bath Operator, Patient Problem Specific Plan: Monitor Clinically, Repeat Labs Problem Text: 01/07/19: Hgb 8.0. We will arrange for transfusion 1 unit of PRBC with Lasix 40 after. We will continue to monitor 01/06/19: Hgb 8.3 this morning, continues to trend down. We will need to continue to monitor this closely and transfuse if indicated. GI was consulted yesterday. Recommendations as follows: - Monitor H/ H and transfuse if needed to keep hemoglobin around 9gm/ dL. Minimize the phlebotomies - As patient is having suspected endocarditis and still having shortness of breath, will consider optimization of cardiac status and clearance by cardiology if patient can be safely be off Apixaban for atleast 3 days prior to Colonoscopy procedure. Urgent Colonoscopy if overt active GI bleeding - Clear liquid diet tomorrow pending above - Will schedule for Colonoscopy based on the above 01/05/19: Hgb 8.6 this morning. We will continue to monitor. GI consulted. Patient has been on Eliquis. 01/04 Hgb stable overnight, cont to monitor. 01/03 Hgb slowing trending down s/p 2 units, monitor closely, OB has not been collected. 01/01 2 units of pRBCs ordered, Lasix to be given between each unit. f/u labs ordered, stool OB, Fe, ferritin, B12 folate (3) Diastolic CHF, chronic Status: Acute Response to Treatment: Stable Discussed With: Nurse, Coagulating Bath Operator, Patient Problem Text: 01/07/19:Appears well compensated on exam today 01/06/19: Appears compensated on exam today. Peripheral edema has improved. Patient with a negative -1285 from I's & O's. Renal function remains stable 01/05/19: Appears compensated today 01/03 Lasix 40 mg daily, appears compensated 12/31 [facility] [place] [facility] [place] Grant has been consulted. Lasix IV 40 mg q12h, I remain unconvinced that his I & Os are accurate, listing 600 in yesterday and 1200 out. Cont to monitor, Scr increased to 1.5 today, baseline is 1.6-1.7, he will be getting 2 units of blood today and an order for Lasix 20 mg between each unit was placed. 12/30 Lasx IV q12h, I + Os appear to be inaccurate, spoke to nursing, slight bump in Scr, monitor, anticipate changing to HD Lasix tomorrow, 40 mg daily. Enc BARRON diet. 12/29/18: Started on Lasix 40mg IV q 12 hours with a net negative of 2L, 1800 cc fluid restriction Chest Xray Impression: Probable interstitial infiltrates. (4) Hypokalemia Status: Acute Response to Treatment: Improving Problem Text: 12/30 K + 3.8, cont with daily replacement while on IV lasix. 12/29/18: K+ 3.2. Replaced with K+ 40 meq x 1 today, repeat K+ level this afternoon. We will start K+ 40meq po q day and monitor (5) Chest wall pain Status: Acute Response to Treatment: Improving Discussed With: Nurse, Patient Problem Specific Plan: Repeat Tests Problem Text: 12/30 I did NOT palpate crepitations today or last week in office, Xray Neg for fractures. 12/29 He was complaining of chest pain. On examination he has tenderness on palpation over the R chest wall with increased "buoyancy" of the ribs and mild crepitations noted. He reports that Sharon Larson, R-PAC told him he had some rib fractures after a fall last week, but I don't see any radiographic documentation of this. I will order a right rib series for further evaluation. (6) CKD (chronic kidney disease), stage III Status: Chronic Response to Treatment: Stable Problem Text: 01/06/19: Remains stable : Stable. We will continue to monitor BUN/Cre 29/1.32, GFR 56 12/31 Scr 1.5, baseline 1.6, monitor. 12/30 Baseline Scr 1.6, today 1.35, cont with IV Lasix, monitor. 12/29/18: baseline Cre~1.6-1.7, GFR ~36-45. Today Cre 1.18, GFR >60, this is most likely d/t his dilutional status. We will monitor (7) Atrial fibrillation Status: Chronic Response to Treatment: Stable Problem Text: 01/07/19: Rate controlled. Patient is on Eliquis. This will need to be held for colonoscopy. Dr. Schwartz will be in today to provide clearance for procedure 12/29/18: Rate controlled on Bisoprolol 5mg daily. Currently on Eliquis 5 mg po bid (8) DM2 (diabetes mellitus, type 2) Status: Chronic Response to Treatment: Stable Problem Text: 12/29/18: Managed with Lantus 22 units q hs and Humalog sliding scale outpatient. He is currently being covered with mealtime insulin only. He is not NPO, but his fasting BGs have been 78, 99 and he has only required 2 units of coverage. We will monitor and make adjustments in regimen accordingly. (9) Diarrhea Status: Resolved Problem Text: 12/30 No recurrence of loose stools since admission. 12/29/18: Patient with hx of c-diff at his previously hospitalization about approx one month ago. GI panel pending. Plan/VTE VTE Prophylaxis Ordered?: Yes (Eliquis 5mg bid ) Plan Therapy: PT Anticipated Discharge: Sub Acute Rehab (Rec STR at d/c.) VS, I&O, 24H, Fishbone Vital Signs/I&O Vital Signs Date Time Temp Pulse Resp B/P (MAP) Pulse Ox O2 Delivery O2 Flow Rate FiO2 01/07/19 08:00 98.3 75 18 121/56 (77) 97 2.0 01/05/19 06:07 Nasal Cannula I&O- Last 24 Hours up to 6 AM 01/07/19 06:00 Intake Total 1640 ml Output Total 2750 ml Balance -1110 ml Laboratory Data 24H LABS Laboratory Tests 2 01/06/19 12:44: Bedside Glucose (Misc Panel) 131H 01/06/19 17:30: Bedside Glucose (Misc Panel) 171H 01/06/19 20:06: Bedside Glucose (Misc Panel) 229H 01/07/19 04:33: Immature Granulocyte % (Auto) 0.9, White Blood Count 6.4, Red Blood Count 2.81L, Hemoglobin 8.0L, Hematocrit 26.0L, Mean Corpuscular Volume 92.5, Mean Corpuscular Hemoglobin 28.5, Mean Corpuscular Hemoglobin Concent 30.8L, Red Cell Distribution Width 17.3H, Platelet Count 293, Neutrophils (%) (Auto) 75.2H, Lymphocytes (%) (Auto) 13.9L, Monocytes (%) (Auto) 9.4H, Eosinophils (%) (Auto) 0.3, Basophils (%) (Auto) 0.3, Neutrophils # (Auto) 4.8, Lymphocytes # (Auto) 0.9L, Monocytes # (Auto) 0.6, Eosinophils # (Auto) 0.0, Basophils # (Auto) 0.0, Nucleated Red Blood Cells % (auto) 0.0, Anion Gap 6L, Glomerular Filtration Rate 58.3, Blood Urea Nitrogen 21H, Creatinine 1.28, Sodium Level 133L, Potassium Level 4.5, Chloride Level 97L, Carbon Dioxide Level 30, Calcium Level 8.2L CBC/BMP Laboratory Tests 01/07/19 04:33 Red Blood Count 2.81 L, Mean Corpuscular Volume 92.5, Mean Corpuscular Hemoglobin 28.5, Mean Corpuscular Hemoglobin Concent 30.8 L, Red Cell Distribution Width 17.3 H, Neutrophils (%) (Auto) 75.2 H, Lymphocytes (%) (Auto) 13.9 L, Monocytes (%) (Auto) 9.4 H, Eosinophils (%) (Auto) 0.3, Basophils (%) (Auto) 0.3, Neutrophils # (Auto) 4.8, Lymphocytes # (Auto) 0.9 L, Monocytes # (Auto) 0.6, Eosinophils # (Auto) 0.0, Basophils # (Auto) 0.0, Calcium Level 8.2 L Microbiology Microbiology 01/01/19 Blood Culture - Final, Complete NO GROWTH AFTER 5 DAYS 12/31/18 Blood Culture - Final, Complete NO GROWTH AFTER 5 DAYS 12/28/18 Blood Culture - Final, Complete Enterococcus Faecalis 12/28/18 Blood Culture - Final, Complete Enterococcus Faecalis 12/29/18 MRSA Screen - Final, Complete CRISTIN DAWN Jan 07, 2019 08:54 EZIO ZARATE DO Jan 08, 2019 02:00
[2019-01-07] MEDS ORDERED: FUROSEMIDE 40 MG/4 ML VIAL (J1940) IV ONE (11:00)
[2019-01-07] MEDS: BISOPROLOL FUMARATE 5 MG TAB PO SCH (11:07)
[2019-01-07] MEDS: FENOFIBRATE 145 MG TAB (TRICOR) PO SCH (12:14)
[2019-01-07] MEDS: LISINOPRIL 10 MG TAB PO SCH ×2 (12:14→20:38)
[2019-01-07] MEDS: FINASTERIDE 5 MG TAB PO SCH (12:14)
--- NOTE | 2019-01-07 13:41 | REP ---
WHITE BLOOD CELL SCAN WHOLE BODY: 01/06/2019. Comparison: X-ray left shoulder 12/30/2018. Clinical history: Repeated sepsis. Evaluate grafts and pelvis and legs versus other source. Technique: The patient received 0.481 mCi Indium-111 autologous labeled WBCs. Whole body delayed images with anterior and posterior obliques of the chest, abdomen, and pelvis and lateral views of the lower extremities at 3.5 and 24 hours. Findings: On the 24 hour delayed images there is a large zone of focal uptake about the left shoulder which is only minimally visible on the 3.5 hour images as a subtle asymmetry. There is activity in the marrow of the spine, pelvis, long bones and ribs. This correlates to normal marrow activity. Activity in the liver and spleen noted in the usual pattern. The femoral shaft activity is noted. There is a subtle zone of linear increased uptake medial to the femoral shaft that could be and a graft but this is minimal uptake compared to the very intense uptake in the left shoulder. There is also some uptake in the paranasal sinuses on the delayed images suggesting some sinus disease, probably in the ethmoids or sphenoids. Impression: 1. Intense uptake over the left shoulder involving the region of the glenohumeral joint and highly suspicious for tracer/WBC accumulation on the basis of infection or inflammatory process. 2. Long bone uptake is normal along with the spine, pelvis and ribs seen. All of that appears otherwise unremarkable. 3. Some focal increased uptake centrally in the paranasal sinus region suggesting ethmoid or sphenoid abnormality. 4. Subtle linear increased uptake parallel to the right femoral shaft that may be subtle uptake in a graft. No other finding. Electronically Signed by Bernabe Oliva MD 01/07/2019 07:51 P
[2019-01-07] MEDS: IPRATROPIUM 0.5MG/ALBUTEROL 2.5MG INH SOL UD 3ML (DUONEB)(J7620) NEB PRN (17:21)
[2019-01-07] MEDS: ACETAMINOPHEN 500 MG TAB PO SCH (20:38)
[2019-01-07] MEDS: TAMSULOSIN 0.4 MG CAP PO SCH (20:38)
[2019-01-07] MEDS: ROSUVASTATIN 10 MG TAB (CRESTOR) PO SCH (20:38)
[2019-01-07] MEDS: guaiFENesin ER 600 MG TAB PO PRN (20:39)
[2019-01-07] MEDS: LATANOPROST 0.005% OPHTH SOLN 2.5 ML OU SCH (20:39)
[2019-01-08] MEDS: AMPICILLIN SOD 2 GM in D5W MINI-BAG PLUS 100 ML IV SCH ×6 (01:37→21:34)
[2019-01-08] MEDS: IPRATROPIUM 0.5MG/ALBUTEROL 2.5MG INH SOL UD 3ML (DUONEB)(J7620) NEB SCH ×5 (02:54→23:30)
[2019-01-08] MEDS: ACETAMINOPHEN TAB 650MG DOSE (2X325MG) PO PRN ×2 (03:33→15:20)
[2019-01-08 04:00] VITALS: BP 160/70
[2019-01-08] MEDS: cefTRIAXone SOD 2 GM in D5W MINI-BAG PLUS 50 ML IV SCH ×2 (04:36→17:01)
[2019-01-08 05:30] LABS: BASO % 0.3 % (0.0-1.0); EOS % 0.5 % (0.0-3.0); HEMATOCRIT 29.1 % (42.0-52.0); HEMOGLOBIN 9.2 g/dl (13.5-17.5); LYMPH # 0.7 10^3/uL (1.5-4.5); LYMPH % 11.7 % (24.0-44.0); MEAN CORPUSCULAR HEMOGLOBIN 28.6 pg (27.0-33.0); MEAN CORPUSCULAR HGB CONC 31.6 g/dl (32.0-36.5); MEAN CORPUSCULAR VOLUME 90.4 fl (80.0-96.0); MONO # 0.6 10^3/uL (0.0-0.8); MONO % 9.2 % (0.0-5.0); NEUTROPHILS # 4.9 10^3/uL (1.8-7.7); NEUTROPHILS % 77.2 % (36.0-66.0); PLATELET COUNT, AUTOMATED 284 10^3/uL (150-450); RED BLOOD COUNT 3.22 10^6/uL (4.30-6.10); WHITE BLOOD COUNT 6.3 10^3/uL (4.0-10.0)
[2019-01-08 05:46] LABS: BLOOD UREA NITROGEN 17 MG/DL (7-18); CALCIUM LEVEL 8.3 MG/DL (8.8-10.2); CARBON DIOXIDE LEVEL 33 MEQ/L (21-32); CHLORIDE LEVEL 96 MEQ/L (98-107); CREATININE FOR GFR 1.21 MG/DL (0.70-1.30); GLOMERULAR FILTRATION RATE > 60.0 (>42); GLUCOSE, FASTING 149 MG/DL (70-100); SODIUM LEVEL 135 MEQ/L (136-145)
[2019-01-08] MEDS: SODIUM CHLORIDE 0.9% INJ 10 ML SYR IV SCH ×3 (06:00→22:30)
[2019-01-08 08:00] VITALS: BP 130/78
[2019-01-08] MEDS: OMEGA-3 1000MG CAPSULE PO SCH ×2 (08:38→21:34)
[2019-01-08] MEDS: FUROSEMIDE 40 MG TAB PO SCH (08:38)
[2019-01-08] MEDS: FERROUS SULFATE 325MG TAB PO SCH (08:38)
[2019-01-08] MEDS: ASPIRIN 81 MG ENTERIC TAB PO SCH (08:38)
[2019-01-08] MEDS: SERTRALINE HCL 50 MG TAB PO SCH (08:38)
[2019-01-08] MEDS: DOCUSATE SODIUM 100 MG CAP PO SCH ×2 (08:38→21:34)
[2019-01-08] MEDS: VANCOMYCIN ORAL SOL 250MG/5ML ORAL SYRINGE PO SCH ×2 (08:38→21:34)
[2019-01-08] MEDS: OMEPRAZOLE 20 MG CAP PO SCH (08:38)
[2019-01-08] MEDS: HumaLOG INSULIN (NovoLOG) PER UNIT SC SCH ×4 (08:39→21:00)
[2019-01-08] MEDS: POTASSIUM CHLORIDE 10 MEQ SR TABLET PO SCH (08:39)
--- NOTE | 2019-01-08 11:21 | IPNPDOC ---
Subjective Date Seen The patient was seen on 01/08/19. Subjective Chief Complaint/HPI patient sleeping, denies discomfort except at left shoulder that has been troublesome the entire time he has been here and before. he had seen Dr. Egan in March 2018 and both shoulders were injected. Note from that visit does not mention any swelling or heat involving the left shoulder. We are awaiting Cardiology opinion about moving forward with colonoscopy. If favorable then the Eliquis can be held for 48 hours to enable biopsy if needed with less worry about bleeding. Constitutional: Denies: Chills ENT: Denies: Head Aches Pulmonary: Denies: Dyspnea, Cough Cardiovascular: Denies: Chest Pain Gastrointestinal: Denies: Nausea, Vomiting Musculoskeletal: Reports: Shoulder Pain (left as noted in CC above) Objective Physical Examination General Exam: Positive: Alert, No Acute Distress ENT Exam: Positive: Mucous membr. moist/pink Neck Exam: Positive: Supple; Negative: JVD Chest Exam: Positive: Rhonchi (scattered throughout, slight improvement with cough); Negative: Rales, Wheezing Heart Exam: Positive: Rate Normal, Irregular Rhythm, Murmurs Abdomen Exam: Positive: Normal bowel sounds, Soft; Negative: Tenderness, Hepatospenomegaly Extremity Exam: Positive: Tenderness, Swelling (left shoulder warm, red and swollen and somewhat tender to touch and movement. xray on 12/30 showed arthritic changes.); Negative: Edema Skin Exam: Positive: Nl turgor and temperature; Negative: Rash Psych Exam: Positive: Mental status NL (alert and oriented x 3), Mood NL (irritable) Assessment /Plan Problems (1) Enterococcus faecalis infection Status: Acute Response to Treatment: Stable Discussed With: Nurse, Pathology Secretary/Transcriptionist, Patient Problem Specific Plan: Monitor Clinically Problem Text: 01/08: concentrated at left shoulder. no significant uptake at vascular grafts 01/07/19: Tagged WBC scan results pending. Afebrile. WBC 6.4. D9 Ampicilling and Ceftriaxone. Patient also on po Vancomycin. Colonoscopy pending cardiology clearance and patient's ability to hold Eliquis for [address] Schwartz this morning. He will come see patient today for clearance. I spoke with Dr. Ugalde and he will place order for prep to start on Thursday with plan for colonoscopy on Thursday. Patient will continue liquid diet. 01/06/19: Tagged WBC scan is scheduled for today. Abx are on hold until scan is complete. Patient remains afebrile. WBC 5.2. BC from 01/01 remain negative after 5 days. 01/05/18: Dr.. Zarate spoke with Dr. Rosas yesterday. WBC tagged scan was recommended. This will be performed tomorrow. Nuclear Medicine recommended patient be off abx for 24 hours prior to scan. Patient stable, WBC 6.5, afebrile, 12/31 BC negative x 5 days, BC 01/01 negative x 72 hours. We will hold abx tonight and resume them tomorrow. GI consult order placed. Call to Dr. Ugalde placed. He was in clinic and will return call once available. 01/04 Dr Zarate to speak with Dr Rosas today regarding risk of infection at graft site, I spoke with pt regarding consideration of colonoscopy, he has had this done with Dr Gaines in the past and is agreeable for repeat if necessary. 01/03 ANURAG without obvious vegetation although thickening of the valves was noted. He has had 2 Neg BC and therefore an order for PICC has been placed. 05/02 colonoscopy with [facility] with mtp sessile polpys + tubular adenomas, rec repeat scope in 6 months, pt has declined. 08/31 LLE endarterectomy with Bovine tissue - Ralph 02/28 RLE fem endarterectomy, R fem/pop bypass with porpraten graft - Ralph address with attending how to proceed regarding identifying source, it is also important to note that Dr Grant doesn't feel endocarditis can be completely excluded d/t thickening of the valves 12/[address] Rudolph yesterday who called concerned regarding the pts prelim BC results, she was consulted for adjustment and recommendations regarding abx. Cardio has been consulted, Dr Grant has seen the patient. He plans to ANURAG probably later today. 12/31- [employer]- Both blood cx are positive for G+ bacteria. Last admission he had an E. faecalis bacteremia. It is VERY likely that the bacteria in his blood this time is the same. The fact that her has a persistent bacteremia leads to concerns for either a large and persistent colonic lesion ( e.g dysplastic polyp, or an endocarditis). Dr. Rudolph was consulted and has adjusted his abx while we clarify what is going on. (2) Anemia Status: Acute Response to Treatment: Worse Discussed With: Nurse, Pathology Secretary/Transcriptionist, Patient Problem Specific Plan: Monitor Clinically, Repeat Labs Problem Text: 01/08: hgb improved to 9.2 01/07/19: Hgb 8.0. We will arrange for transfusion 1 unit of PRBC with Lasix 40 after. We will continue to monitor 01/06/19: Hgb 8.3 this morning, continues to trend down. We will need to continue to monitor this closely and transfuse if indicated. GI was consulted yesterday. Recommendations as follows: - Monitor H/ H and transfuse if needed to keep hemoglobin around 9gm/ dL. Minimize the phlebotomies - As patient is having suspected endocarditis and still having shortness of breath, will consider optimization of cardiac status and clearance by cardiology if patient can be safely be off Apixaban for atleast 3 days prior to Colonoscopy procedure. Urgent Colonoscopy if overt active GI bleeding - Clear liquid diet tomorrow pending above - Will schedule for Colonoscopy based on the above 01/05/19: Hgb 8.6 this morning. We will continue to monitor. GI consulted. Patient has been on Eliquis. 01/04 Hgb stable overnight, cont to monitor. 01/03 Hgb slowing trending down s/p 2 units, monitor closely, OB has not been collected. 01/01 2 units of pRBCs ordered, Lasix to be given between each unit. f/u labs ordered, stool OB, Fe, ferritin, B12 folate (3) Diastolic CHF, chronic Status: Acute Response to Treatment: Stable Discussed With: Nurse, Pathology Secretary/Transcriptionist, Patient Problem Text: 01/08: no edema, lungs ess clear 01/07/19:Appears well compensated on exam today 01/06/19: Appears compensated on exam today. Peripheral edema has improved. Patient with a negative -[id number] from I's & O's. Renal function remains stable 01/05/19: Appears compensated today 01/03 Lasix 40 mg daily, appears compensated 12/31 [facility] [place] - Dr Grant has been consulted. Lasix IV 40 mg q12h, I remain unconvinced that his I & Os are accurate, listing 600 in yesterday and 1200 out. Cont to monitor, Scr increased to 1.5 today, baseline is 1.6-1.7, he will be getting 2 units of blood today and an order for Lasix 20 mg between each unit was placed. 12/30 Lasx IV q12h, I + Os appear to be inaccurate, spoke to nursing, slight bump in Scr, monitor, anticipate changing to HD Lasix tomorrow, 40 mg daily. Enc BARRON diet. 12/29/18: Started on Lasix 40mg IV q 12 hours with a net negative of 2L, 1800 cc fluid restriction Chest Xray Impression: Probable interstitial infiltrates. (4) Hypokalemia Status: Resolved Response to Treatment: Improving Problem Text: 12/30 K + 3.8, cont with daily replacement while on IV lasix. 12/29/18: K+ 3.2. Replaced with K+ 40 meq x 1 today, repeat K+ level this afternoon. We will start K+ 40meq po q day and monitor (5) Chest wall pain Status: Resolved Response to Treatment: Improving Discussed With: Nurse, Patient Problem Specific Plan: Repeat Tests Problem Text: 12/30 I did NOT palpate crepitations today or last week in office, Xray Neg for fractures. 12/29 He was complaining of chest pain. On examination he has tenderness on palpation over the R chest wall with increased "buoyancy" of the ribs and mild crepitations noted. He reports that Sharon Larson, R-PAC told him he had some rib fractures after a fall last week, but I don't see any radiographic documentation of this. I will order a right rib series for further evaluation. (6) CKD (chronic kidney disease), stage III Status: Chronic Response to Treatment: Stable Problem Text: 01/08: stable, creatinine now in normal range. 01/06/19: Remains stable : Stable. We will continue to monitor BUN/Cre 29/1.32, GFR 56 12/31 Scr 1.5, baseline 1.6, monitor. 12/30 Baseline Scr 1.6, today 1.35, cont with IV Lasix, monitor. 12/29/18: baseline Cre~1.6-1.7, GFR ~36-45. Today Cre 1.18, GFR >60, this is most likely d/t his dilutional status. We will monitor (7) Atrial fibrillation Status: Chronic Response to Treatment: Stable Problem Text: 01/08: stable, waiting for opinion from Dr. Schwartz as noted. 01/07/19: Rate controlled. Patient is on Eliquis. This will need to be held for colonoscopy. Dr. Schwartz will be in today to provide clearance for procedure 12/29/18: Rate controlled on Bisoprolol 5mg daily. Currently on Eliquis 5 mg po bid (8) DM2 (diabetes mellitus, type 2) Status: Chronic Response to Treatment: Stable Problem Text: 12/29/18: Managed with Lantus 22 units q hs and Humalog sliding scale outpatient. He is currently being covered with mealtime insulin only. He is not NPO, but his fasting BGs have been 78, 99 and he has only required 2 units of coverage. We will monitor and make adjustments in regimen accordingly. (9) Diarrhea Status: Resolved Problem Text: 12/30 No recurrence of loose stools since admission. 12/29/18: Patient with hx of c-diff at his previously hospitalization about approx one month ago. GI panel pending. Plan/VTE VTE Prophylaxis Ordered?: Yes (Eliquis 5mg bid ) Plan Therapy: PT Anticipated Discharge: Sub Acute Rehab (Rec STR at d/c.) VS, I&O, 24H, Fishbone Vital Signs/I&O Vital Signs Date Time Temp Pulse Resp B/P (MAP) Pulse Ox O2 Delivery O2 Flow Rate FiO2 01/08/19 08:00 97.8 86 20 130/78 (95) 94 2.0 01/08/19 06:07 Nasal Cannula I&O- Last 24 Hours up to 6 AM 01/08/19 06:00 Intake Total 2630 ml Output Total 2750 ml Balance -120 ml Laboratory Data 24H LABS Laboratory Tests 2 01/07/19 12:06: Bedside Glucose (Misc Panel) 169H 01/07/19 16:31: Bedside Glucose (Misc Panel) 177H 01/07/19 20:03: Bedside Glucose (Misc Panel) 177H, Erythrocyte Sedimentation Rate > 140H, C- Reactive Protein, Quantitative 13.10H 01/08/19 05:14: Immature Granulocyte % (Auto) 1.1, White Blood Count 6.3, Red Blood Count 3.22L, Hemoglobin 9.2L, Hematocrit 29.1L, Mean Corpuscular Volume 90.4, Mean Corpuscular Hemoglobin 28.6, Mean Corpuscular Hemoglobin Concent 31.6L, Red Cell Distribution Width 17.0H, Platelet Count 284, Neutrophils (%) (Auto) 77.2H, Lymphocytes (%) (Auto) 11.7L, Monocytes (%) (Auto) 9.2H, Eosinophils (%) (Auto) 0.5, Basophils (%) (Auto) 0.3, Neutrophils # (Auto) 4.9, Lymphocytes # (Auto) 0.7L, Monocytes # (Auto) 0.6, Eosinophils # (Auto) 0.0, Basophils # (Auto) 0.0, Nucleated Red Blood Cells % (auto) 0.0, Anion Gap 6L, Glomerular Filtration Rate > 60.0, Blood Urea Nitrogen 17, Creatinine 1.21, Sodium Level 135L, Potassium Level 4.0, Chloride Level 96L, Carbon Dioxide Level 33H, Calcium Level 8.3L CBC/BMP Laboratory Tests 01/08/19 05:14 Red Blood Count 3.22 L, Mean Corpuscular Volume 90.4, Mean Corpuscular Hemoglobin 28.6, Mean Corpuscular Hemoglobin Concent 31.6 L, Red Cell Distribut ion Width 17.0 H, Neutrophils (%) (Auto) 77.2 H, Lymphocytes (%) (Auto) 11.7 L, Monocytes (%) (Auto) 9.2 H, Eosinophils (%) (Auto) 0.5, Basophils (%) (Auto) 0.3, Neutrophils # (Auto) 4.9, Lymphocytes # (Auto) 0.7 L, Monocytes # (Auto) 0.6, Eosinophils # (Auto) 0.0, Basophils # (Auto) 0.0, Calcium Level 8.3 L Microbiology Microbiology 01/01/19 Blood Culture - Final, Complete NO GROWTH AFTER 5 DAYS 12/31/18 Blood Culture - Final, Complete NO GROWTH AFTER 5 DAYS 12/29/18 MRSA Screen - Final, Complete Mark Tripp MD Jan 08, 2019 11:21
[2019-01-08 12:00] VITALS: BP 122/78
[2019-01-08] MEDS: LISINOPRIL 10 MG TAB PO SCH ×2 (12:33→21:34)
[2019-01-08] MEDS: ONDANSETRON 4 MG TAB (S0181) PO SCH ×2 (12:33→18:02)
[2019-01-08] MEDS: FINASTERIDE 5 MG TAB PO SCH (12:33)
[2019-01-08] MEDS: BISOPROLOL FUMARATE 5 MG TAB PO SCH (12:34)
[2019-01-08] MEDS: FENOFIBRATE 145 MG TAB (TRICOR) PO SCH (12:34)
[2019-01-08 16:00] VITALS: BP 122/76
--- NOTE | 2019-01-08 16:43 | REP ---
Left shoulder four views: There are no comparisons. The acromioclavicular joint is unremarkable. The humeral head is high riding in the glenoid and there is narrowing of the subacromial space, compatible with chronic rotator cuff insufficiency. There is no fracture or dislocation. There is demineralization. Impression: Narrowing of the subacromial space compatible with chronic rotator cuff insufficiency. Demineralization. No fracture or dislocation. Electronically Signed by Zachary Nguyen MD 01/08/2019 04:35 P
[2019-01-08 20:00] VITALS: BP 142/70
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
[2019-01-08] MEDS: LATANOPROST 0.005% OPHTH SOLN 2.5 ML OU SCH (21:33)
[2019-01-08] MEDS: ROSUVASTATIN 10 MG TAB (CRESTOR) PO SCH (21:34)
[2019-01-08] MEDS: ACETAMINOPHEN 500 MG TAB PO SCH (21:34)
[2019-01-08] MEDS: TAMSULOSIN 0.4 MG CAP PO SCH (21:35)
[2019-01-08] MEDS: ALPRAZolam 0.25 MG TAB PO PRN (22:27)
[2019-01-08 23:59] VITALS: BP 103/55
[2019-01-09] MEDS: ACETAMINOPHEN TAB 650MG DOSE (2X325MG) PO PRN ×3 (01:04→13:54)
[2019-01-09] MEDS: ONDANSETRON 4 MG TAB (S0181) PO SCH ×5 (01:04→22:56)
[2019-01-09] MEDS: AMPICILLIN SOD 2 GM in D5W MINI-BAG PLUS 100 ML IV SCH ×6 (01:04→22:33)
[2019-01-09 04:00] VITALS: BP 134/63
[2019-01-09] MEDS: cefTRIAXone SOD 2 GM in D5W MINI-BAG PLUS 50 ML IV SCH ×2 (04:10→17:06)
[2019-01-09] MEDS: SODIUM CHLORIDE 0.9% INJ 10 ML SYR IV PRN (05:00)
[2019-01-09 05:57] LABS: BASO % 0.3 % (0.0-1.0); EOS % 0.7 % (0.0-3.0); HEMATOCRIT 28.7 % (42.0-52.0); HEMOGLOBIN 9.1 g/dl (13.5-17.5); LYMPH # 0.7 10^3/uL (1.5-4.5); LYMPH % 10.6 % (24.0-44.0); MEAN CORPUSCULAR HEMOGLOBIN 28.3 pg (27.0-33.0); MEAN CORPUSCULAR HGB CONC 31.7 g/dl (32.0-36.5); MEAN CORPUSCULAR VOLUME 89.1 fl (80.0-96.0); MONO # 0.6 10^3/uL (0.0-0.8); MONO % 9.6 % (0.0-5.0); NEUTROPHILS # 4.8 10^3/uL (1.8-7.7); NEUTROPHILS % 77.7 % (36.0-66.0); PLATELET COUNT, AUTOMATED 311 10^3/uL (150-450); RED BLOOD COUNT 3.22 10^6/uL (4.30-6.10); WHITE BLOOD COUNT 6.1 10^3/uL (4.0-10.0)
[2019-01-09 06:11] LABS: BLOOD UREA NITROGEN 14 MG/DL (7-18); CARBON DIOXIDE LEVEL 29 MEQ/L (21-32); CHLORIDE LEVEL 96 MEQ/L (98-107); CREATININE FOR GFR 1.14 MG/DL (0.70-1.30); GLOMERULAR FILTRATION RATE > 60.0 (>42); GLUCOSE, FASTING 193 MG/DL (70-100); POTASSIUM SERUM 3.9 MEQ/L (3.5-5.1); SODIUM LEVEL 131 MEQ/L (136-145)
[2019-01-09] MEDS: IPRATROPIUM 0.5MG/ALBUTEROL 2.5MG INH SOL UD 3ML (DUONEB)(J7620) NEB SCH ×4 (07:35→23:57)
[2019-01-09 08:00] VITALS: BP 133/74
[2019-01-09] MEDS: POTASSIUM CHLORIDE 10 MEQ SR TABLET PO SCH (08:32)
[2019-01-09] MEDS: VANCOMYCIN ORAL SOL 250MG/5ML ORAL SYRINGE PO SCH ×2 (08:32→19:58)
[2019-01-09] MEDS: OMEGA-3 1000MG CAPSULE PO SCH ×2 (08:33→19:59)
[2019-01-09] MEDS: OMEPRAZOLE 20 MG CAP PO SCH (08:33)
[2019-01-09] MEDS: DOCUSATE SODIUM 100 MG CAP PO SCH ×2 (08:33→20:00)
[2019-01-09] MEDS: ASPIRIN 81 MG ENTERIC TAB PO SCH (08:33)
[2019-01-09] MEDS: FERROUS SULFATE 325MG TAB PO SCH (08:34)
[2019-01-09] MEDS: HumaLOG INSULIN (NovoLOG) PER UNIT SC SCH ×4 (08:34→19:58)
[2019-01-09] MEDS: SERTRALINE HCL 50 MG TAB PO SCH (08:34)
[2019-01-09] MEDS: FUROSEMIDE 40 MG TAB PO SCH (08:34)
--- NOTE | 2019-01-09 10:31 | IPN ---
DATE: 01/09/2019 CHIEF COMPLAINT: Followup day 1 of left shoulder pain and swelling. HISTORY OF PRESENT ILLNESS This 73-year-old man was admitted to the hospital for multiple medical reasons. He is on vancomycin, ampicillin and ceftriaxone for pneumonia in the setting of chronic obstructive pulmonary disease (COPD). According to him, he has about 2 months now swelling of his left shoulder in the absence of constitutional symptoms. His ESR was elevated at 140. However, his CRP was fairly low at 13. However, given his multiple medical comorbidities he is a little bit immunosuppressed, but on a number of antibiotics. Today states, he that there is still a little bit of left-sided shoulder pain, but still no other constitutional symptoms, fever, chills, sweats at night, any redness or warmth in the shoulder. PHYSICAL EXAMINATION Vital signs reveal temperature 98.0. Blood pressure 134/63. Pulse rate 74. 2 liters nasal prongs satting 97%, respiratory rate 20. He is alert, oriented times three. He is on nebulizer face mask currently. He does complain about little bit of pain in the shoulder still located on lateral side of the deltoid. On inspection, there is still a moderate amount of swelling that appears diffusely around the shoulder. There is no redness or warmth to shoulder. Nothing tracking down the elbow. No ecchymosis or other deformity. Elevation still very weak, probably 10 degrees or less. No pain with micromotion or with external and internal rotation to 0 to 30 degrees. Radiographs were reviewed. These were obtained four views of his left shoulder. Unfortunately, they still did not do an axillary lateral as I specifically put in my request. However, the views do show superior migration of the humeral head consistent with massive rotator cuff tear. There is also what appears to be a chronic distal clavicle fracture. No other acute abnormalities are seen on the x-rays. LABORATORY EXAMINATION Repeat CRP is down to 12.4 from 13 two days ago. ASSESSMENT/PLAN This 73-year-old man appears to have a chronic large rotator cuff tear that can definitely be causing this picture of moderate sized effusion present in and around the entire shoulder. Given his absence of pain with micromotion and lack of redness or warmth of the shoulder I still think that this is a chronic inflammatory process made worse likely by his recent hospitalizations and pneumonia. We will hold off for now on performing aspiration but think that if we do go ahead with that it will be with interventional radiology guidance so that we can perform an intra-articular injection to rule out a septic joint. I will hold off on this until at least tomorrow until we are able to trend the CRPs and we will make a final decision within the next 2 days.
[2019-01-09 12:00] VITALS: BP 115/72
[2019-01-09] MEDS: FINASTERIDE 5 MG TAB PO SCH (12:47)
[2019-01-09] MEDS: LISINOPRIL 10 MG TAB PO SCH ×2 (12:47→19:59)
[2019-01-09] MEDS: FENOFIBRATE 145 MG TAB (TRICOR) PO SCH (12:47)
[2019-01-09] MEDS: BISOPROLOL FUMARATE 5 MG TAB PO SCH (12:48)
--- NOTE | 2019-01-09 14:18 | IPNPDOC ---
Subjective Date Seen The patient was seen on 01/09/19. Subjective Chief Complaint/HPI shoulder still hurts but not worse and no other new complaints Constitutional: Denies: Chills ENT: Denies: Head Aches Pulmonary: Denies: Dyspnea, Cough Cardiovascular: Denies: Chest Pain, Orthopnea Gastrointestinal: Denies: Nausea, Vomiting, Abdominal Pain Hematologic: Denies: Bruising Musculoskeletal: Reports: Shoulder Pain (brett left) Psych: Reports: Mood Normal Objective Physical Examination General Exam: Positive: Alert, No Acute Distress ENT Exam: Positive: Mucous membr. moist/pink Neck Exam: Positive: Supple; Negative: JVD Chest Exam: Positive: Rhonchi (scattered throughout, slight improvement with cough); Negative: Rales, Wheezing Heart Exam: Positive: Rate Normal, Irregular Rhythm, Murmurs Abdomen Exam: Positive: Normal bowel sounds, Soft; Negative: Tenderness, Hepatospenomegaly, Mass Extremity Exam: Positive: Tenderness, Swelling ( swollen and somewhat tender to touch and movement.); Negative: Edema Skin Exam: Positive: Nl turgor and temperature; Negative: Rash Psych Exam: Positive: Mental status NL (alert and oriented x 3), Mood NL (irritable) Assessment /Plan Problems (1) Enterococcus faecalis infection Status: Acute Response to Treatment: Stable Discussed With: Nurse, Wastewater Treatment Supervisor, Patient Problem Specific Plan: Monitor Clinically Problem Text: 01/09: at some point definite answer will be needed regarding whether the heart valves are colonized. Dr. Ugalde will be doing colonoscopy to evaluate for possible colonic source for bactermia once merchandise worker provide "clearance". 01/08: concentrated at left shoulder. no significant uptake at vascular grafts 01/07/19: Tagged WBC scan results pending. Afebrile. WBC 6.4. D9 Ampicillin and Ceftriaxone. Patient also on po Vancomycin. Colonoscopy pending cardiology clearance and patient's ability to hold Eliquis for [address] Schwartz this morning. He will come see patient today for clearance. I spoke with Dr. Ugalde and he will place order for prep to start on Thursday with plan for colonoscopy on Thursday. Patient will continue liquid diet. 01/06/19: Tagged WBC scan is scheduled for today. Abx are on hold until scan is complete. Patient remains afebrile. WBC 5.2. BC from 01/01 remain negative after 5 days. 01/05/18: Dr.. Zarate spoke with Dr. Rosas yesterday. WBC tagged scan was valerio mmended. This will be performed tomorrow. Nuclear Medicine recommended patient be off abx for 24 hours prior to scan. Patient stable, WBC 6.5, afebrile, 12/31 BC negative x 5 days, BC 01/01 negative x 72 hours. We will hold abx tonight and resume them tomorrow. GI consult order placed. Call to Dr. Ugalde placed. He was in clinic and will return call once available. 01/04 Dr Zarate to speak with Dr Rosas today regarding risk of infection at graft site, I spoke with pt regarding consideration of colonoscopy, he has had this done with Dr Gaines in the past and is agreeable for repeat if ne cessary. 01/03 ANURAG without obvious vegetation although thickening of the valves was noted. He has had 2 Neg BC and therefore an order for PICC has been placed. 05/02 colonoscopy with Edre with mtp sessile polpys + tubular adenomas, rec repeat scope in 6 months, pt has declined. 08/31 LLE endarterectomy with Bovine tissue - Ralph 02/28 RLE fem endarterectomy, R fem/pop bypass with porpraten graft - Ralph address with attending how to proceed regarding identifying source, it is also important to note that Dr Grant doesn't feel endocarditis can be completely excluded d/t thickening of the valves 12/[address] Rudolph yesterday who called concerned regarding the pts prelim BC results, she was consulted for adjustment and recommendations regarding abx. Cardio has been consulted, Dr Grant has seen the patient. He plans to ANURAG probably later today. 12/31- CRITICAL CARE REGISTERED NURSE- Both blood cx are positive for G+ bacteria. Last admission he had an E. faecalis bacteremia. It is VERY likely that the bacteria in his blood this time is the same. The fact that her has a persistent bacteremia leads to concerns for either a large and persistent colonic lesion ( e.g dysplastic polyp, or an endocarditis). Dr. Rudolph was consulted and has adjusted his abx while we clarify what is going on. (2) Anemia Status: Acute Response to Treatment: Worse Discussed With: Nurse, Wastewater Treatment Supervisor, Patient Problem Specific Plan: Monitor Clinically, Repeat Labs Problem Text: 2/24: Hgb 9.1 01/08: hgb improved to 9.2 01/07/19: Hgb 8.0. We will arrange for transfusion 1 unit of PRBC with Lasix 40 after. We will continue to monitor 01/06/19: Hgb 8.3 this morning, continues to trend down. We will need to continue to monitor this closely and transfuse if indicated. GI was consulted yesterday. Recommendations as follows: - Monitor H/ H and transfuse if needed to keep hemoglobin around 9gm/ dL. Minimize the phlebotomies - As patient is having suspected endocarditis and still having shortness of breath, will consider optimization of cardiac status and clearance by cardiology if patient can be safely be off Apixaban for atleast 3 days prior to Colonoscopy procedure. Urgent Colonoscopy if overt active GI bleeding - Clear liquid diet tomorrow pending above - Will schedule for Colonoscopy based on the above 01/05/19: Hgb 8.6 this morning. We will continue to monitor. GI consulted. Patient has been on Eliquis. 01/04 Hgb stable overnight, cont to monitor. 01/03 Hgb slowing trending down s/p 2 units, monitor closely, OB has not been collected. 01/01 2 units of pRBCs ordered, Lasix to be given between each unit. f/u labs ordered, stool OB, Fe, ferritin, B12 folate (3) Diastolic CHF, chronic Status: Acute Response to Treatment: Stable Discussed With: Nurse, Wastewater Treatment Supervisor, Patient Problem Text: 01/08: no edema, lungs ess clear 01/07/19:Appears well compensated on exam today 01/06/19: Appears compensated on exam today. Peripheral edema has improved. Mallorie ent with a negative -1285 from I's & O's. Renal function remains stable 01/05/19: Appears compensated today 01/03 Lasix 40 mg daily, appears compensated 12/31 [facility] [place] - Dr Grant has been consulted. Lasix IV 40 mg q12h, I remain unconvinced that his I & Os are accurate, listing 600 in yesterday and 1200 out. Cont to monitor, Scr increased to 1.5 today, baseline is 1.6-1.7, he will be getting 2 units of blood today and an order for Lasix 20 mg between each unit was placed. 12/30 Lasx IV q12h, I + Os appear to be inaccurate, spoke to nursing, slight bump in Scr, monitor, anticipate changing to HD Lasix tomorrow, 40 mg daily. Enc BARRON diet. 12/29/18: Started on Lasix 40mg IV q 12 hours with a net negative of 2L, 1800 cc fluid restriction Chest Xray Impression: Probable interstitial infiltrates. (4) Hypokalemia Status: Resolved Response to Treatment: Improving Problem Text: 12/30 K + 3.8, cont with daily replacement while on IV lasix. 12/29/18: K+ 3.2. Replaced with K+ 40 meq x 1 today, repeat K+ level this afternoon. We will start K+ 40meq po q day and monitor (5) Chest wall pain Status: Resolved Response to Treatment: Improving Discussed With: Nurse, Patient Problem Specific Plan: Repeat Tests Problem Text: 12/30 I did NOT palpate crepitations today or last week in office, Xray Neg for fractures. 12/29 He was complaining of chest pain. On examination he has tenderness on palpation over the R chest wall with increased "buoyancy" of the ribs and mild crepitations noted. He reports that Sharon Larson, R-PAC told him he had some rib fractures after a fall last week, but I don't see any radiographic documentation of this. I will order a right rib series for further evaluation. (6) CKD (chronic kidney disease), stage III Status: Chronic Response to Treatment: Stable Problem Text: 01/08: stable, creatinine now in normal range. 01/06/19: Remains stable : Stable. We will continue to monitor BUN/Cre 29/1.32, GFR 56 12/31 Scr 1.5, baseline 1.6, monitor. 12/30 Baseline Scr 1.6, today 1.35, cont with IV Lasix, monitor. 12/29/18: baseline Cre~1.6-1.7, GFR ~36-45. Today Cre 1.18, GFR >60, this is most likely d/t his dilutional status. We will monitor (7) Atrial fibrillation Status: Chronic Response to Treatment: Stable Problem Text: 01/08: stable, waiting for opinion from Dr. Schwartz as noted. 01/07/19: Rate controlled. Patient is on Eliquis. This will need to be held for colonoscopy. Dr. Schwartz will be in today to provide clearance for procedure 12/29/18: Rate controlled on Bisoprolol 5mg daily. Currently on Eliquis 5 mg po bid (8) DM2 (diabetes mellitus, type 2) Status: Chronic Response to Treatment: Stable Problem Text: 12/29/18: Managed with Lantus 22 units q hs and Humalog sliding scale outpatient. He is currently being covered with mealtime insulin only. He is not NPO, but his fasting BGs have been 78, 99 and he has only required 2 units of coverage. We will monitor and make adjustments in regimen accordingly. (9) Diarrhea Status: Resolved Problem Text: 12/30 No recurrence of loose stools since admission. 12/29/18: Patient with hx of c-diff at his previously hospitalization about appr ox one month ago. GI panel pending. (10) Left shoulder pain Status: Chronic Response to Treatment: Stable Problem Specific Plan: Consult Specialist (Appreciate detailed and thoughtful note from Dr. Farrar. Seems less likely acutely infected and more likely chronic inflammatory problem.) Plan/VTE VTE Prophylaxis Ordered?: Yes (Eliquis 5mg bid ) Plan Therapy: PT Anticipated Discharge: Sub Acute Rehab (Rec STR at d/c.) VS, I&O, 24H, Fishbone Vital Signs/I&O Vital Signs Date Time Temp Pulse Resp B/P (MAP) Pulse Ox O2 Delivery O2 Flow Rate FiO2 01/09/19 12:48 77 01/09/19 12:47 115/72 01/09/19 12:00 97.5 20 97 2.0 01/08/19 23:30 Nasal Cannula I&O- Last 24 Hours up to 6 AM 01/09/19 05:59 Intake Total 1420 ml Output Total 2245 ml Balance -825 ml Laboratory Data 24H LABS Laboratory Tests 2 01/08/19 16:56: Bedside Glucose (Misc Panel) 140H 01/08/19 21:03: Bedside Glucose (Misc Panel) 199H 01/09/19 05:27: Immature Granulocyte % (Auto) 1.1, White Blood Count 6.1, Red Blood Count 3.22L, Hemoglobin 9.1L, Hematocrit 28.7L, Mean Corpuscular Volume 89.1, Mean Corpuscular Hemoglobin 28.3, Mean Corpuscular Hemoglobin Concent 31.7L, Red Cell Distribution Width 16.8H, Platelet Count 311, Neutrophils (%) (Auto) 77.7H, Lymphocytes (%) (Auto) 10.6L, Monocytes (%) (Auto) 9.6H, Eosinophils (%) (Auto) 0.7, Basophils (%) (Auto) 0.3, Neutrophils # (Auto) 4.8, Lymphocytes # (Auto) 0.7L, Monocytes # (Auto) 0.6, Eosinophils # (Auto) 0.0, Basophils # (Auto) 0.0, Nucleated Red Blood Cells % (auto) 0.0, Anion Gap 6L, Glomerular Filtration Rate > 60.0, Blood Urea Nitrogen 14, Creatinine 1.14, Sodium Level 131L, Potassium Level 3.9, Chloride Level 96L, Carbon Dioxide Level 29, Calcium Level 8.0L, C- Reactive Protein, Quantitative 12.40H 01/09/19 12:07: Bedside Glucose (Misc Panel) 194H CBC/BMP Laboratory Tests 01/09/19 05:27 Red Blood Count 3.22 L, Mean Corpuscular Volume 89.1, Mean Corpuscular Hemoglobin 28.3, Mean Corpuscular Hemoglobin Concent 31.7 L, Red Cell Distribution Width 16.8 H, Neutrophils (%) (Auto) 77.7 H, Lymphocytes (%) (Auto) 10.6 L, Monocytes (%) (Auto) 9.6 H, Eosinophils (%) (Auto) 0.7, Basophils (%) (Auto) 0.3, Neutrophils # (Auto) 4.8, Lymphocytes # (Auto) 0.7 L, Monocytes # (Auto) 0.6, Eosinophils # (Auto) 0.0, Basophils # (Auto) 0.0, Calcium Level 8.0 L Microbiology Microbiology 01/01/19 Blood Culture - Final, Complete NO GROWTH AFTER 5 DAYS 12/31/18 Blood Culture - Final, Complete NO GROWTH AFTER 5 DAYS Mark Tripp MD Jan 09, 2019 14:17
[2019-01-09 16:00] VITALS: BP 123/78
[2019-01-09] MEDS: SODIUM CHLORIDE 0.9% INJ 10 ML SYR IV SCH (18:04)
[2019-01-09] MEDS: ACETAMINOPHEN 500 MG TAB PO SCH (19:59)
[2019-01-09] MEDS: TAMSULOSIN 0.4 MG CAP PO SCH (19:59)
[2019-01-09] MEDS: LATANOPROST 0.005% OPHTH SOLN 2.5 ML OU SCH (20:00)
[2019-01-09] MEDS: ROSUVASTATIN 10 MG TAB (CRESTOR) PO SCH (20:00)
[2019-01-09 20:04] VITALS: BP 130/60
[2019-01-09] MEDS: ALPRAZolam 0.25 MG TAB PO PRN (22:54)
[2019-01-10] VITALS (7 sets, daily range): BP systolic 114–138; BP diastolic 57–78
[2019-01-10] MEDS: ACETAMINOPHEN TAB 650MG DOSE (2X325MG) PO PRN ×3 (01:52→17:15)
[2019-01-10] MEDS: AMPICILLIN SOD 2 GM in D5W MINI-BAG PLUS 100 ML IV SCH ×6 (01:53→22:31)
[2019-01-10] MEDS: cefTRIAXone SOD 2 GM in D5W MINI-BAG PLUS 50 ML IV SCH ×2 (04:45→17:17)
[2019-01-10 05:00] LABS: BASO % 0.3 % (0.0-1.0); HEMATOCRIT 30.5 % (42.0-52.0); HEMOGLOBIN 9.3 g/dl (13.5-17.5); LYMPH # 0.7 10^3/uL (1.5-4.5); LYMPH % 11.1 % (24.0-44.0); MEAN CORPUSCULAR HEMOGLOBIN 27.8 pg (27.0-33.0); MEAN CORPUSCULAR HGB CONC 30.5 g/dl (32.0-36.5); MEAN CORPUSCULAR VOLUME 91.3 fl (80.0-96.0); MONO # 0.6 10^3/uL (0.0-0.8); MONO % 8.4 % (0.0-5.0); NEUTROPHILS # 5.2 10^3/uL (1.8-7.7); NEUTROPHILS % 79.3 % (36.0-66.0); PLATELET COUNT, AUTOMATED 318 10^3/uL (150-450); RED BLOOD COUNT 3.34 10^6/uL (4.30-6.10); WHITE BLOOD COUNT 6.6 10^3/uL (4.0-10.0)
[2019-01-10 05:20] LABS: C REACTIVE PROTEIN QUANTITATIV 13.2 MG/DL (0.00-0.30); CREATININE FOR GFR 1.31 MG/DL (0.70-1.30); GLOMERULAR FILTRATION RATE 56.8 (>42); POTASSIUM SERUM 4.1 MEQ/L (3.5-5.1)
[2019-01-10 05:21] LABS: ERYTHROCYTE SEDIMENTATION RATE 91 mm/hr (0-20)
[2019-01-10] MEDS: SODIUM CHLORIDE 0.9% INJ 10 ML SYR IV SCH ×2 (05:29→17:17)
[2019-01-10] MEDS: ONDANSETRON 4 MG TAB (S0181) PO SCH ×4 (05:30→23:52)
[2019-01-10] MEDS: DOCUSATE SODIUM 100 MG CAP PO SCH ×2 (09:00→22:33)
[2019-01-10] MEDS: OMEGA-3 1000MG CAPSULE PO SCH ×2 (09:00→22:33)
[2019-01-10] MEDS: IPRATROPIUM 0.5MG/ALBUTEROL 2.5MG INH SOL UD 3ML (DUONEB)(J7620) NEB SCH ×3 (09:05→19:53)
[2019-01-10] MEDS: HumaLOG INSULIN (NovoLOG) PER UNIT SC SCH ×4 (09:15→22:28)
[2019-01-10] MEDS: POTASSIUM CHLORIDE 10 MEQ SR TABLET PO SCH (09:21)
[2019-01-10] MEDS: ASPIRIN 81 MG ENTERIC TAB PO SCH (09:22)
[2019-01-10] MEDS: FUROSEMIDE 40 MG TAB PO SCH (09:22)
[2019-01-10] MEDS: SERTRALINE HCL 50 MG TAB PO SCH (09:23)
[2019-01-10] MEDS: FERROUS SULFATE 325MG TAB PO SCH (09:23)
[2019-01-10] MEDS: VANCOMYCIN ORAL SOL 250MG/5ML ORAL SYRINGE PO SCH ×2 (09:24→22:35)
[2019-01-10] MEDS: OMEPRAZOLE 20 MG CAP PO SCH (09:25)
[2019-01-10] MEDS: IPRATROPIUM 0.5MG/ALBUTEROL 2.5MG INH SOL UD 3ML (DUONEB)(J7620) NEB PRN ×2 (12:31→15:48)
[2019-01-10] MEDS: FENOFIBRATE 145 MG TAB (TRICOR) PO SCH (12:41)
[2019-01-10] MEDS: BISOPROLOL FUMARATE 5 MG TAB PO SCH (12:41)
[2019-01-10] MEDS: FINASTERIDE 5 MG TAB PO SCH (12:42)
[2019-01-10] MEDS: LISINOPRIL 10 MG TAB PO SCH ×2 (12:43→22:34)
[2019-01-10] MEDS: SODIUM CHLORIDE 0.9% INJ 10 ML SYR IV PRN ×2 (12:45→14:35)
--- NOTE | 2019-01-10 14:03 | IPNPDOC ---
Subjective Date Seen The patient was seen on 01/10/19. Subjective Chief Complaint/HPI Patient reports no new pain or discomfort. Is comfortable lying in bed. Is looking forward to leaving hospital. Shoulder only painful like it normally is. No chest pain or shortness of breath. Constitutional: Denies: Chills, Fever Pulmonary: Denies: Dyspnea Cardiovascular: Denies: Chest Pain Objective Physical Examination General Exam: Positive: Alert, No Acute Distress ENT Exam: Positive: Mucous membr. moist/pink Neck Exam: Positive: Supple; Negative: JVD Chest Exam: Positive: Rhonchi (scattered throughout, slight improvement with cough); Negative: Rales, Wheezing Heart Exam: Positive: Rate Normal, Irregular Rhythm, Murmurs Abdomen Exam: Positive: Normal bowel sounds, Soft; Negative: Tenderness, Hepatospenomegaly, Mass Extremity Exam: Positive: Tenderness, Swelling ( Left shouldar swelling, no erythema. ); Negative: Edema Skin Exam: Positive: Nl turgor and temperature; Negative: Rash Psych Exam: Positive: Mental status NL (alert and oriented x 3), Mood NL (irritable) Assessment /Plan Assessment Discussed with I+D about patient's possible source for E. Faecalis. Concern for possible septic joint. This may loom changer for antibiotics. Ordering US guided drain to determine if possible source. Patient has colonoscopy scheduled for tomorrow. Colonoscopy in 2017 revealed Tubular Adenomas as previous colonoscopies. Patient also had mild uptake in graft on WBC scan. May need consider discussing with vascular surgeon. Problems (1) Enterococcus faecalis infection Status: Acute Response to Treatment: Stable Discussed With: Nurse, Prep Cook, Patient Problem Specific Plan: Monitor Clinically Problem Text: 01/[address] Grant and her will do cardiology clearance later. Eliquis already on hold, has been since 01/07. Colonoscopy scheduled for tomorrow. 01/09: at some point definite answer will be needed regarding whether the heart valves are colonized. Dr. Ugalde will be doing colonoscopy to evaluate for possible colonic source for bactermia once lawn mower operator provide "clearance". 01/08: concentrated at left shoulder. no significant uptake at vascular grafts 01/07/19: Tagged WBC scan results pending. Afebrile. WBC 6.4. D9 Ampicillin and Ceftriaxone. Patient also on po Vancomycin. Colonoscopy pending cardiology clearance and patient's ability to hold Eliquis for [address] Schwartz this morning. He will come see patient today for clearance. I spoke with Dr. Ugalde and he will place order for prep to start on Thursday with plan for colonoscopy on Thursday. Patient will continue liquid diet. 01/06/19: Tagged WBC scan is scheduled for today. Abx are on hold until scan is complete. Patient remains afebrile. WBC 5.2. BC from 01/01 remain negative after 5 days. 01/05/18: Dr.. Zarate spoke with Dr. Rosas yesterday. WBC tagged scan was recommended. This will be performed tomorrow. Nuclear Medicine recommended patient be off abx for 24 hours prior to scan. Patient stable, WBC 6.5, afebrile, 12/31 BC negative x 5 days, BC 01/01 negative x 72 hours. We will hold abx tonight and resume them tomorrow. GI consult order placed. Call to Dr. Ugalde placed. He was in clinic and will return call once available. 01/04 Dr Zarate to speak with Dr Rosas today regarding risk of infection at graft site, I spoke with pt regarding consideration of colonoscopy, he has had this done with Dr Gaines in the past and is agreeable for repeat if necessary. 01/03 ANURAG without obvious vegetation although thickening of the valves was noted. He has had 2 Neg BC and therefore an order for PICC has been placed. 05/02 colonoscopy with Eder with mtp sessile polpys + tubular adenomas, rec repeat scope in 6 months, pt has declined. 08/31 LLE endarterectomy with Bovine tissue - Ralph 02/28 RLE fem endarterectomy, R fem/pop bypass with porpraten graft - Ralph address with attending how to proceed regarding identifying source, it is also important to note that Dr Grant doesn't feel endocarditis can be completely excluded d/t thickening of the valves 12/[address] Rudolph yesterday who called concerned regarding the pts prelim BC results, she was consulted for adjustment and recommendations regarding abx. Cardio has been consulted, Dr Grant has seen the patient. He plans to ANURAG probably later today. 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 Last admission he had an E. faecalis bacteremia. It is VERY likely that the bacteria in his blood this time is the same. The fact that her has a persistent bacteremia leads to concerns for either a large and persistent colonic lesion ( e.g dysplastic polyp, or an endocarditis). Dr. Rudolph was consulted and has adjusted his abx while we clarify what is going on. (2) Anemia Status: Acute Response to Treatment: Worse Discussed With: Nurse, Prep Cook, Patient Problem Specific Plan: Monitor Clinically, Repeat Labs Problem Text: 01/10: Continue to monitor hemoglobin. Goal is hgb 9. Repeat CBC AM. Item Value Date Time Hemoglobin 9.3 g/dl L 01/10/19 0440 01/09: Hgb 9.1 01/08: hgb improved to 9.2 01/07/19: Hgb 8.0. We will arrange for transfusion 1 unit of PRBC with Lasix 40 after. We will continue to monitor 01/06/19: Hgb 8.3 this morning, continues to trend down. We will need to continue to monitor this closely and transfuse if indicated. GI was consulted yesterday. Recommendations as follows: - Monitor H/ H and transfuse if needed to keep hemoglobin around 9gm/ dL. Minimize the phlebotomies - As patient is having suspected endocarditis and still having shortness of breath, will consider optimization of cardiac status and clearance by cardiology if patient can be safely be off Apixaban for atleast 3 days prior to Colonoscopy procedure. Urgent Colonoscopy if overt active GI bleeding - Clear liquid diet tomorrow pending above - Will schedule for Colonoscopy based on the above 01/05/19: Hgb 8.6 this morning. We will continue to monitor. GI consulted. Patient has been on Eliquis. 01/04 Hgb stable overnight, cont to monitor. 01/03 Hgb slowing trending down s/p 2 units, monitor closely, OB has not been collected. 01/01 2 units of pRBCs ordered, Lasix to be given between each unit. f/u labs ordered, stool OB, Fe, ferritin, B12 folate (3) Diastolic CHF, chronic Status: Acute Response to Treatment: Stable Discussed With: Nurse, Prep Cook, Patient Problem Text: 01/08: no edema, lungs ess clear 01/07/19:Appears well compensated on exam today 01/06/19: Appears compensated on exam today. Peripheral edema has improved. Patient with a negative -[phone] from I's & O's. Renal function remains stable 01/05/19: Appears compensated today 01/03 Lasix 40 mg daily, appears compensated 12/31 [facility] [place] - Dr Grant has been consulted. Lasix IV 40 mg q12h, I remain unconvinced that his I & Os are accurate, listing 600 in yesterday and 1200 out. Cont to monitor, Scr increased to 1.5 today, baseline is 1.6-1.7, he will be getting 2 units of blood today and an order for Lasix 20 mg between each unit was placed. 12/30 Lasx IV q12h, I + Os appear to be inaccurate, spoke to nursing, slight bump in Scr, monitor, anticipate changing to HD Lasix tomorrow, 40 mg daily. Enc BARRON diet. 12/29/18: Started on Lasix 40mg IV q 12 hours with a net negative of 2L, 1800 cc fluid restriction Chest Xray Impression: Probable interstitial infiltrates. (4) Hypokalemia Status: Resolved Response to Treatment: Improving Problem Text: 01/10 Normal range today. Continue to monitor. 12/30 K + 3.8, cont with daily replacement while on IV lasix. 12/29/18: K+ 3.2. Replaced with K+ 40 meq x 1 today, repeat K+ level this afternoon. We will start K+ 40meq po q day and monitor (5) Chest wall pain Status: Resolved Response to Treatment: Improving Discussed With: Nurse, Patient Problem Specific Plan: Repeat Tests Problem Text: 12/30 I did NOT palpate crepitations today or last week in office, Xray Neg for fractures. 12/29 He was complaining of chest pain. On examination he has tenderness on palpation over the R chest wall with increased "buoyancy" of the ribs and mild crepitations noted. He reports that Sharon Larson, R-PAC told him he had some rib fractures after a fall last week, but I don't see any radiographic documentation of this. I will order a right rib series for further evaluation. (6) CKD (chronic kidney disease), stage III Status: Chronic Response to Treatment: Stable Problem Text: 01/08: stable, creatinine now in normal range. 01/06/19: Remains stable : Stable. We will continue to monitor BUN/Cre 29/1.32, GFR 56 12/31 Scr 1.5, baseline 1.6, monitor. 12/30 Baseline Scr 1.6, today 1.35, cont with IV Lasix, monitor. 12/29/18: baseline Cre~1.6-1.7, GFR ~36-45. Today Cre 1.18, GFR >60, this is most likely d/t his dilutional status. We will monitor (7) Atrial fibrillation Status: Chronic Response to Treatment: Stable Problem Text: 01/08: stable, waiting for opinion from Dr. Schwartz as noted. 01/07/19: Rate controlled. Patient is on Eliquis. This will need to be held for colonoscopy. Dr. Schwartz will be in today to provide clearance for procedure 12/29/18: Rate controlled on Bisoprolol 5mg daily. Currently on Eliquis 5 mg po bid (8) DM2 (diabetes mellitus, type 2) Status: Chronic Response to Treatment: Stable Problem Text: 12/29/18: Managed with Lantus 22 units q hs and Humalog sliding scale outpatient. He is currently being covered with mealtime insulin only. He is not NPO, but his fasting BGs have been 78, 99 and he has only required 2 units of coverage. We will monitor and make adjustments in regimen accordingly. (9) Diarrhea Status: Resolved Problem Text: 12/30 No recurrence of loose stools since admission. 12/29/18: Patient with hx of c-diff at his previously hospitalization about appr ox one month ago. GI panel pending. (10) Left shoulder pain Status: Chronic Response to Treatment: Stable Problem Specific Plan: Consult Specialist (Appreciate detailed and thoughtful note from Dr. Farrar. Seems less likely acutely infected and more likely chronic inflammatory problem.) Problem Text: Swelling noted. Ortho was consulted. Monitoring for now. Do not think septic joint. Chronic swelling. Monitor CRPs and ESRs. Plan/VTE VTE Prophylaxis Ordered?: Yes (Eliquis 5mg bid ) Plan Therapy: PT Anticipated Discharge: Sub Acute Rehab (Rec STR at d/c.) VS, I&O, 24H, Fishbone Vital Signs/I&O Vital Signs Date Time Temp Pulse Resp B/P (MAP) Pulse Ox O2 Delivery O2 Flow Rate FiO2 01/10/19 12:43 120/78 01/10/19 12:41 65 01/10/19 12:00 2.0 01/10/19 12:00 97.8 17 100 01/09/19 23:57 Nasal Cannula I&O- Last 24 Hours up to 6 AM 01/10/19 06:00 Intake Total 1390 ml Output Total 1725 ml Balance -335 ml Laboratory Data 24H LABS Laboratory Tests 2 01/09/19 17:06: Bedside Glucose (Misc Panel) 125H 01/09/19 19:33: Bedside Glucose (Misc Panel) 182H 01/10/19 04:40: Immature Granulocyte % (Auto) 0.9, White Blood Count 6.6, Red Blood Count 3.34L, Hemoglobin 9.3L, Hematocrit 30.5L, Mean Corpuscular Volume 91.3, Mean Corpuscular Hemoglobin 27.8, Mean Corpuscular Hemoglobin Concent 30.5L, Red Cell Distribution Width 16.6H, Platelet Count 318, Neutrophils (%) (Auto) 79.3H, Lymphocytes (%) (Auto) 11.1L, Monocytes (%) (Auto) 8.4H, Eosinophils (%) (Auto) 0.0, Basophils (%) (Auto) 0.3, Neutrophils # (Auto) 5.2, Lymphocytes # (Auto) 0.7L, Monocytes # (Auto) 0.6, Eosinophils # (Auto) 0.0, Basophils # (Auto) 0.0, Nucleated Red Blood Cells % (auto) 0.0, Erythrocyte Sedimentation Rate 91H, Anion Gap 5L, Glomerular Filtration Rate 56.8, Blood Urea Nitrogen 13, Creatinine 1.31H, Sodium Level 132L, Potassium Level 4.1, Chloride Level 96L, Carbon Dioxide Level 31, Calcium Level 8.0L, C-Reactive Protein, Quantitative 13.20H 01/10/19 12:31: Bedside Glucose (Misc Panel) 178H CBC/BMP Laboratory Tests 01/10/19 04:40 Red Blood Count 3.34 L, Mean Corpuscular Volume 91.3, Mean Corpuscular Hemoglobin 27.8, Mean Corpuscular Hemoglobin Concent 30.5 L, Red Cell Distribution Width 16.6 H, Neutrophils (%) (Auto) 79.3 H, Lymphocytes (%) (Auto) 11.1 L, Monocytes (%) (Auto) 8.4 H, Eosinophils (%) (Auto) 0.0, Basophils (%) (Auto) 0.3, Neutrophils # (Auto) 5.2, Lymphocytes # (Auto) 0.7 L, Monocytes # (Auto) 0.6, Eosinophils # (Auto) 0.0, Basophils # (Auto) 0.0, Calcium Level 8.0 L Microbiology Microbiology 01/01/19 Blood Culture - Final, Complete NO GROWTH AFTER 5 DAYS 12/31/18 Blood Culture - Final, Complete NO GROWTH AFTER 5 DAYS GME ATTESTATION GME ATTESTATION My faculty preceptor for this patient encounter was physically present during the encounter and was fully available. All aspects of the patient interview, examination, medical decision making process, and medical care plan development were reviewed and approved by the faculty preceptor. The faculty preceptor is aware and concurs with the plan as stated in the body of this note and will attest to such by his/her cosignature. LAWANDA JOVEL DO Jan 10, 2019 14:03
[2019-01-10 18:50] LABS: BASO % 0.3 % (0.0-1.0); EOS % 0.2 % (0.0-3.0); HEMATOCRIT 30.1 % (42.0-52.0); HEMOGLOBIN 9.3 g/dl (13.5-17.5); LYMPH # 0.6 10^3/uL (1.5-4.5); LYMPH % 9.8 % (24.0-44.0); MEAN CORPUSCULAR HEMOGLOBIN 28.5 pg (27.0-33.0); MEAN CORPUSCULAR HGB CONC 30.9 g/dl (32.0-36.5); MEAN CORPUSCULAR VOLUME 92.3 fl (80.0-96.0); MONO # 0.6 10^3/uL (0.0-0.8); MONO % 9.4 % (0.0-5.0); NEUTROPHILS # 4.6 10^3/uL (1.8-7.7); NEUTROPHILS % 79.4 % (36.0-66.0); PLATELET COUNT, AUTOMATED 321 10^3/uL (150-450); RED BLOOD COUNT 3.26 10^6/uL (4.30-6.10); WHITE BLOOD COUNT 5.8 10^3/uL (4.0-10.0)
[2019-01-10] MEDS ORDERED: BISACODYL 5 MG TAB PO ONE (21:00)
[2019-01-10] MEDS ORDERED: GOLYTELY SOLN 4000 ML BTL PO ONE (22:00)
[2019-01-10] MEDS: LATANOPROST 0.005% OPHTH SOLN 2.5 ML OU SCH (22:29)
[2019-01-10] MEDS: TAMSULOSIN 0.4 MG CAP PO SCH (22:33)
[2019-01-10] MEDS: ROSUVASTATIN 10 MG TAB (CRESTOR) PO SCH (22:34)
[2019-01-10] MEDS: ACETAMINOPHEN 500 MG TAB PO SCH (22:35)
[2019-01-10] MEDS: ALPRAZolam 0.25 MG TAB PO PRN (23:52)
[2019-01-11] VITALS (7 sets, daily range): BP systolic 117–146; BP diastolic 54–65; O2SAT 97
[2019-01-11] MEDS: IPRATROPIUM 0.5MG/ALBUTEROL 2.5MG INH SOL UD 3ML (DUONEB)(J7620) NEB SCH ×4 (02:00→20:00)
[2019-01-11] MEDS: AMPICILLIN SOD 2 GM in D5W MINI-BAG PLUS 100 ML IV SCH ×6 (02:18→22:00)
[2019-01-11] MEDS: SODIUM CHLORIDE 0.9% INJ 10 ML SYR IV PRN (03:03)
[2019-01-11] MEDS: SODIUM CHLORIDE 0.9% INJ 10 ML SYR IV SCH ×2 (06:12→20:12)
[2019-01-11] MEDS: ONDANSETRON 4 MG TAB (S0181) PO SCH ×3 (06:12→18:31)
--- NOTE | 2019-01-11 07:44 | IPN ---
DATE: 01/11/2019 CHIEF COMPLAINT: Left shoulder pain and swelling. HISTORY OF PRESENT ILLNESS: This is a 73-year-old man who was admitted to the hospital for multiple medical issues and is pending a colonoscopy today. He is seen today again in followup of his left shoulder pain and swelling. He still does complain about left shoulder pain. On my initial questioning, he had stated that this was present for at least 2 months, not associated with any systemic symptoms. PHYSICAL EXAMINATION: Blood pressure 134/65. Pulse rate 75. Temperature 97.6. Respiratory rate 18. Satting 98% on 2 liters nasal prongs. Inspection of the left shoulder reveals still the same amount of moderate swelling, mostly fullness in the anterior aspect of the shoulder. Some mild pain to palpation. No pain with micromotion, but a little bit more pain with forward elevation and internal and external rotation with the arm at the side of the body. Still no warmth or redness to the shoulder. Active forward elevation difficult on either side for him. LABORATORY EXAMINATION: In the last few days, reveal ESR trending down from 91 to 79 and of CRP 12.4, 13.2 and 10.9, essentially about the same level. ASSESSMENT/PLAN: 73-year-old man with culture positive septicemia as well as apparently a pneumonia. I think it is reasonable to go ahead and order an aspiration, either under ultrasound guidance or fluoroscopy, of his left shoulder to see if there is another source as he could have certainly seeded this from his blood born or lung infection. Again, I do think this is less likely given the given history of what appears to be a chronic effusion of his left shoulder in the setting of massive rotator cuff tear that is evident on his x-rays, but I think certainly given the low risk nature of doing an aspiration this can help both to see if there is a different pathogen to help tailor the antibiotics as well as to potentially drain some fluid for comfort measures as well as to treat a potential infection of his left shoulder. I will leave this up to the coal screener who is managing him to order this and I will also follow up on the test. Thank you very much for involving me in this pleasant man's care and helping to coordinate all his medical issues.
--- NOTE | 2019-01-11 08:30 | IPN ---
DATE: 01/10/2019 Mr. Cruz complains of left shoulder pain. He has had no recurrent fever or chills. He states he has had chronic shoulder pain for many months. He has had shoulder injections in the past 6 months with some improvement. He has some nausea but no vomiting or diarrhea. Appetite is fair. He was seen by Dr. Farrar on 01/08/2019 for an abnormal uptake scan, which showed increased uptake in the left shoulder. PHYSICAL EXAMINATION: Temperature is 98.1, pulse 65, respirations 18, blood pressure 129/58, oxygen sat 99% on 2 liters nasal cannula. Heart: Normal S1, S2. Distant. Lungs: Expiratory rhonchi bilaterally. Abdomen: Soft, nontender. Extremities: Trace edema. Both shoulders with limited range of motion. There is ecchymosis along the chest wall diffusely and a large effusion of the left shoulder with very limited range of motion to 10 degrees. LABORATORY DATA: White count is 5.8, hemoglobin 9.3, hematocrit 30.1, platelets 321. ESR more than 140 down to 91, CRP was 25.8, down to 13.2, blood cultures were positive on 12/28 with Enterococcus faecalis. 12/31/2018 blood cultures were negative. The patient has been on ampicillin and Rocephin since 12/30, currently day #11 of combination IV antibiotics. Transesophageal echocardiogram was done by Dr. Grant on 01/03/2019, which showed normal systolic function, ejection fraction of 60 to 65%. No segmental wall motion abnormalities. Right ventricle normal in size. Left atrium is severely enlarged. Right atrium moderately enlarged. Mitral valve was thickened with calcification but no definite prolapse or vegetations. Moderate mitral insufficiency. No evidence of endocarditis. Nuclear scan done on 01/06 shows uptake in the left shoulder and questionable uptake in the right groin graft. IMPRESSION: 1. Enterococcus faecalis bacteremia. Rocephin currently day #11. Since the patient does not have endocarditis, combination antibiotic can be discontinued. We will still need to try and figure out the source of infection. We will first pursue with left shoulder joint fluid analysis to rule out septic joint on the left side. If that is negative, may need to pursue an imaging of the graft, that may be infected. 2. History of Clostridium (C.) difficile colitis, currently has no diarrhea. The patient remains nothing by mouth. Vancomycin prophylactically to decrease the risk of recurrent C diff while on antibiotic. PLAN: Continue oral vancomycin 250 mg twice a day. Discontinue IV Rocephin since the patient does not have endocarditis. Continue IV ampicillin. The case has been discussed with Dr. Lang. We will pursue a joint aspiration to rule out septic joint and possibly consult Dr. Jensen if concern of graft infection if the shoulder does not show any evidence of infection and turns out to just be hematoma.
--- NOTE | 2019-01-11 08:53 | IPNPDOC ---
Date Seen The patient was seen on 01/10/19. Progress Note Interval history: Patient is being followed by ID for prior enterococcus faecalis bacteremia. Patient is in the process of work up for the source of infection. GI is involved due to prior h/o multiple colon polyps and gradual drop in Hemoglobin levels with rectal bleeding episodes prior to hospitalization. Exam: Vitals: No tachycardia, afebrile. Abdomen: obese, non distended, normal bowel sounds. Labs: reviewed. Impression: - Gradual drop in H/H with history of blood in with stools and prior Colonoscopy showed multiple tubular adenomas (removed) in patient on anticoagulation -- DDx- Hemorrhoidal bleeding vs dilutional/repeated phlebotomies vs AVM vs Diverticular vs Colon polyps vs need to rule out upper Gi source of bleeding. - Enterococcus faecalis bacteremia -- needs further evaluation ( seen by ID team). Recommendations: - Patient educated about the test results, possible differential diagnoses and All questions answered. - Monitor H/ H and transfuse if needed to keep hemoglobin around 9gm/ dL. Minimize the phlebotomies. - Patient cleared by cardiology for Endoscopic procedures. -In view of GI bleeding and drop in H/ H., will schedule for both EGD and Colonoscopy on Thursday. The procedures, indications, risks (bleeding, perforation, infection, hypotension, respiratory depression, allergy, need for endotracheal intubation, surgery, colostomy, cardiac arrest, even ), benefits, limitations (e.g., missing a lesion), and all other alternatives (including no intervention) were explained to the patient who understood and agreed for the procedures. Plan of care discussed with patient and primary team. Patient verbalized understanding and agreed with the plan. VS, I&O, 24H, Fishbone Laboratory Data 24H LABS Laboratory Tests 2 01/10/19 12:31: Bedside Glucose (Misc Panel) 178H 01/10/19 17:21: Bedside Glucose (Misc Panel) 152H 01/10/19 18:34: Immature Granulocyte % (Auto) 0.9, White Blood Count 5.8, Red Blood Count 3.26L, Hemoglobin 9.3L, Hematocrit 30.1L, Mean Corpuscular Volume 92.3, Mean Corpus cular Hemoglobin 28.5, Mean Corpuscular Hemoglobin Concent 30.9L, Red Cell Distribution Width 16.4H, Platelet Count 321, Neutrophils (%) (Auto) 79.4H, Lymphocytes (%) (Auto) 9.8L, Monocytes (%) (Auto) 9.4H, Eosinophils (%) (Auto) 0.2, Basophils (%) (Auto) 0.3, Neutrophils # (Auto) 4.6, Lymphocytes # (Auto) 0.6L, Monocytes # (Auto) 0.6, Eosinophils # (Auto) 0.0, Basophils # (Auto) 0.0, Nucleated Red Blood Cells % (auto) 0.0, Total Protein 5.8L 01/10/19 22:28: Bedside Glucose (Misc Panel) 125H 01/11/19 06:20: Erythrocyte Sedimentation Rate 79H, C-Reactive Protein, Quantitative 10.90H CBC/BMP Laboratory Tests 01/10/19 18:34 Red Blood Count 3.26 L, Mean Corpuscular Volume 92.3, Mean Corpuscular Hemoglobin 28.5, Mean Corpuscular Hemoglobin Concent 30.9 L, Red Cell Distribution Width 16.4 H, Neutrophils (%) (Auto) 79.4 H, Lymphocytes (%) (Auto) 9.8 L, Monocytes (%) (Auto) 9.4 H, Eosinophils (%) (Auto) 0.2, Basophils (%) (Auto) 0.3, Neutrophils # (Auto) 4.6, Lymphocytes # (Auto) 0.6 L, Monocytes # (Auto) 0.6, Eosinophils # (Auto) 0.0, Basophils # (Auto) 0.0 Microbiology Microbiology 01/01/19 Blood Culture - Final, Complete NO GROWTH AFTER 5 DAYS IQRA MCNAIR MD Jan 11, 2019 08:53
[2019-01-11] MEDS: MIRALAX *UNIT DOSE* 17GM PACKET PO SCH ×3 (09:33→10:09)
[2019-01-11] MEDS: FUROSEMIDE 40 MG TAB PO SCH (09:33)
[2019-01-11] MEDS: POTASSIUM CHLORIDE 10 MEQ SR TABLET PO SCH (09:33)
[2019-01-11] MEDS: ASPIRIN 81 MG ENTERIC TAB PO SCH (09:33)
[2019-01-11] MEDS: VANCOMYCIN ORAL SOL 250MG/5ML ORAL SYRINGE PO SCH ×2 (09:33→20:11)
--- NOTE | 2019-01-11 09:33 | IPN ---
DATE: 01/11/2019 Mr. Cruz tells me today that he is not feeling well. He started using prep for colonoscopy and spent the night having diarrhea and also vomiting, surprisingly. From a cardiac perspective, he tells me that his breathing is no different than usual and he denies any chest discomfort. Telemetry monitoring reveals atrial fibrillation, but not ventricular arrhythmias. VITAL SIGNS: Blood pressure 121/65, heart rate has been in the 60s to 80s. He is afebrile. Saturation is in the high 90s on 2 liters of oxygen. Fluid balance yesterday was roughly 0.5 liter negative. Documented weight is 72.5 kg, which is about 2.5 kg down since admission. He is alert, oriented and appropriate. His jugular venous pressure does not look high. Lungs today reveal expiratory wheezes throughout, which is new since yesterday evening. Heart examination reveals irregular rate and irregular rhythm. I do not appreciate any gallop. There is a faint murmur at the apex. Abdomen is soft and nontender. There is not much peripheral edema. Neurologically, he is intact. LABORATORY: This morning, the only thing that is back so far has been C-reactive protein, which is still elevated at 10.9 and sed rate that is 79. ASSESSMENT AND PLAN: Mr. Cruz is a 73-year-old man who has extensive vascular disease with a history of bypass surgery, peripheral revascularization of lower extremities and also h/o carotic surgery, who presented with fatigue and low energy, he did not have any history of fever or chills. Surprisingly, he has blood culture positive for Enterococcus, which is second positive culture a month apart. There was a strong suspicion for bacterial endocarditis, but a transesophageal echocardiogram failed to relieve any definite vegetations, even though there was thickening of aortic valve. Even though in my opinion it does not completely rule out the possibility of endocarditis, it certainly is not a finding that I would expect in somebody who presumptively has had the infection for at least one month. I was asked to see him to provide clearance for colonoscopy. I certainly think that colonoscopy is a low risk procedure that seems to be clearly indicated if only because the patient reports ongoing and relatively frequent lower gastrointestinal bleeding. I do not have any specific recommendations for perioperative management other than ongoing monitoring of the patient. He has been chronically anticoagulated, but the oral anticoagulants were switched to heparin. YARON
[2019-01-11] MEDS: OMEPRAZOLE 20 MG CAP PO SCH (09:34)
[2019-01-11] MEDS: DOCUSATE SODIUM 100 MG CAP PO SCH (09:34)
[2019-01-11] MEDS: FERROUS SULFATE 325MG TAB PO SCH (09:34)
[2019-01-11] MEDS: OMEGA-3 1000MG CAPSULE PO SCH ×2 (09:34→20:11)
[2019-01-11] MEDS: SERTRALINE HCL 50 MG TAB PO SCH (09:34)
[2019-01-11] MEDS: HumaLOG INSULIN (NovoLOG) PER UNIT SC SCH ×4 (09:34→22:25)
[2019-01-11] MEDS: FLEET ENEMA PR SCH ×2 (09:35→12:21)
[2019-01-11] MEDS: LISINOPRIL 10 MG TAB PO SCH ×2 (12:00→20:10)
[2019-01-11] MEDS ORDERED: LEVALBUTEROL 1.25 MG/0.5 ML CONCENTRATE NEB As Ordered ONE (15:43)
[2019-01-11] MEDS ORDERED: LEVALBUTEROL 1.25 MG/0.5 ML CONCENTRATE NEB INH ONE (15:45)
--- NOTE | 2019-01-11 17:07 | IPNPDOC ---
Subjective Date Seen The patient was seen on 01/11/19. Subjective Chief Complaint/HPI Patient was able to drink the prep overnight. Did not have clear BMs in the morning and was given enemas. Patient feels ok otherwise. No fevers or chills. Denies shortness of breath or chest pain. Constitutional: Denies: Chills, Fever ENT: Denies: Head Aches Cardiovascular: Denies: Chest Pain Objective Physical Examination General Exam: Positive: Alert, No Acute Distress ENT Exam: Positive: Mucous membr. moist/pink Neck Exam: Positive: Supple; Negative: JVD Chest Exam: Positive: Rhonchi (scattered throughout, slight improvement with cough); Negative: Rales, Wheezing Heart Exam: Positive: Rate Normal, Irregular Rhythm, Murmurs Abdomen Exam: Positive: Normal bowel sounds, Soft; Negative: Tenderness, Hepatospenomegaly, Mass Extremity Exam: Positive: Tenderness, Swelling ( Left shouldar swelling, no erythema. ); Negative: Edema Skin Exam: Positive: Nl turgor and temperature; Negative: Rash Psych Exam: Positive: Mental status NL (alert and oriented x 3), Mood NL (irritable) Assessment /Plan Problems (1) Enterococcus faecalis infection Status: Acute Response to Treatment: Stable Discussed With: Nurse, Airline Security Representative, Patient Problem Specific Plan: Monitor Clinically Problem Text: 01/11 Dr. Grant cleared patient. Plan is to have colonoscopy done this afternoon. Eliquis continue to be on hold. IR will perform shoulder US drain tomorrow. May need to evaluate patient's grafts for possible source. 01/[address] Grant and her will do cardiology clearance later. Eliquis already on hold, has been since 01/07. Colonoscopy scheduled for tomorrow. 01/09: at some point definite answer will be needed regarding whether the heart valves are colonized. Dr. Ugalde will be doing colonoscopy to evaluate for possible colonic source for bactermia once in school suspension coordinator provide "clearance". 01/08: concentrated at left shoulder. no significant uptake at vascular grafts 01/07/19: Tagged WBC scan results pending. Afebrile. WBC 6.4. D9 Ampicillin and Ceftriaxone. Patient also on po Vancomycin. Colonoscopy pending cardiology clearance and patient's ability to hold Eliquis for [address] Schwartz this morning. He will come see patient today for clearance. I spoke with Dr. Ugalde and he will place order for prep to start on Thursday with plan for colonoscopy on Thursday. Patient will continue liquid diet. 01/06/19: Tagged WBC scan is scheduled for today. Abx are on hold until scan is complete. Patient remains afebrile. WBC 5.2. BC from 01/01 remain negative after 5 days. 01/05/18: Dr.. Zarate spoke with Dr. Rosas yesterday. WBC tagged scan was recommended. This will be performed tomorrow. Nuclear Medicine recommended patient be off abx for 24 hours prior to scan. Patient stable, WBC 6.5, afebrile, 12/31 BC negative x 5 days, BC 01/01 negative x 72 hours. We will hold abx tonight and resume them tomorrow. GI consult order placed. Call to Dr. Ugalde placed. He was in clinic and will return call once available. 01/04 Dr Zarate to speak with Dr Rosas today regarding risk of infection at graft site, I spoke with pt regarding consideration of colonoscopy, he has had this done with Dr Gaines in the past and is agreeable for repeat if necessary. 01/03 ANURAG without obvious vegetation although thickening of the valves was noted. He has had 2 Neg BC and therefore an order for PICC has been placed. 05/02 colonoscopy with Eder with mtp sessile polpys + tubular adenomas, rec repeat scope in 6 months, pt has declined. 08/31 LLE endarterectomy with Bovine tissue - Ralph 02/28 RLE fem endarterectomy, R fem/pop bypass with porpraten graft - Ralph address with attending how to proceed regarding identifying source, it is also important to note that Dr Grant doesn't feel endocarditis can be completely excluded d/t thickening of the valves 12/[address] Rudolph yesterday who called concerned regarding the pts prelim BC results, she was consulted for adjustment and recommendations regarding abx. Cardio has been consulted, Dr Grant has seen the patient. He plans to ANURAG probably later today. 12/31- TILE GRADER- Both blood cx are positive for G+ bacteria. Last admission he had an E. faecalis bacteremia. It is VERY likely that the bacteria in his blood this time is the same. The fact that her has a persistent bacteremia leads to concerns for either a large and persistent colonic lesion ( e.g dysplastic polyp, or an endocarditis). Dr. Rudolph was consulted and has adjusted his abx while we clarify what is going on. (2) Anemia Status: Acute Response to Treatment: Worse Discussed With: Nurse, Airline Security Representative, Patient Problem Specific Plan: Monitor Clinically, Repeat Labs Problem Text: 01/11 Hgb stable. 01/10: Continue to monitor hemoglobin. Goal is hgb 9. Repeat CBC AM. Item Value Date Time Hemoglobin 9.3 g/dl L 01/10/19 0440 01/09: Hgb 9.1 01/08: hgb improved to 9.2 01/07/19: Hgb 8.0. We will arrange for transfusion 1 unit of PRBC with Lasix 40 after. We will continue to monitor 01/06/19: Hgb 8.3 this morning, continues to trend down. We will need to continue to monitor this closely and transfuse if indicated. GI was consulted yesterday. Recommendations as follows: - Monitor H/ H and transfuse if needed to keep hemoglobin around 9gm/ dL. Minimize the phlebotomies - As patient is having suspected endocarditis and still having shortness of breath, will consider optimization of cardiac status and clearance by cardiology if patient can be safely be off Apixaban for atleast 3 days prior to Colonoscopy procedure. Urgent Colonoscopy if overt active GI bleeding - Clear liquid diet tomorrow pending above - Will schedule for Colonoscopy based on the above 01/05/19: Hgb 8.6 this morning. We will continue to monitor. GI consulted. Patient has been on Eliquis. 01/04 Hgb stable overnight, cont to monitor. 01/03 Hgb slowing trending down s/p 2 units, monitor closely, OB has not been collected. 01/01 2 units of pRBCs ordered, Lasix to be given between each unit. f/u labs ordered, stool OB, Fe, ferritin, B12 folate (3) Diastolic CHF, chronic Status: Acute Response to Treatment: Stable Discussed With: Nurse, Airline Security Representative, Patient Problem Text: 01/08: no edema, lungs ess clear 01/07/19:Appears well compensated on exam today 01/06/19: Appears compensated on exam today. Peripheral edema has improved. Patient with a negative -[phone] from I's & O's. Renal function remains stable 01/05/19: Appears compensated today 01/03 Lasix 40 mg daily, appears compensated 12/31 [facility] [place] Dr Grant has been consulted. Lasix IV 40 mg q12h, I remain unconvinced that his I & Os are accurate, listing 600 in yesterday and 1200 out. Cont to monitor, Scr increased to 1.5 today, baseline is 1.6-1.7, he will be getting 2 units of blood today and an order for Lasix 20 mg between each unit was placed. 12/30 Lasx IV q12h, I + Os appear to be inaccurate, spoke to nursing, slight bump in Scr, monitor, anticipate changing to HD Lasix tomorrow, 40 mg daily. Enc BARRON diet. 12/29/18: Started on Lasix 40mg IV q 12 hours with a net negative of 2L, 1800 cc fluid restriction Chest Xray Impression: Probable interstitial infiltrates. (4) Hypokalemia Status: Resolved Response to Treatment: Improving Problem Text: 01/10 Normal range today. Continue to monitor. 12/30 K + 3.8, cont with daily replacement while on IV lasix. 12/29/18: K+ 3.2. Replaced with K+ 40 meq x 1 today, repeat K+ level this afternoon. We will start K+ 40meq po q day and monitor (5) Chest wall pain Status: Resolved Response to Treatment: Improving Discussed With: Nurse, Patient Problem Specific Plan: Repeat Tests Problem Text: 12/30 I did NOT palpate crepitations today or last week in office, Xray Neg for fractures. 12/29 He was complaining of chest pain. On examination he has tenderness on palp ation over the R chest wall with increased "buoyancy" of the ribs and mild crepitations noted. He reports that Sharon Larson, R-PAC told him he had some rib fractures after a fall last week, but I don't see any radiographic documentation of this. I will order a right rib series for further evaluation. (6) Left shoulder pain Status: Chronic Response to Treatment: Stable Problem Specific Plan: Consult Specialist (Appreciate detailed and thoughtful note from Dr. Farrar. Seems less likely acutely infected and more likely chronic inflammatory problem.) Problem Text: 01/11 IR consulted. Will have drain placed tomorrow and fluid analyzed. Spoke with ID who agree with plan. Swelling noted. Ortho was consulted. Monitoring for now. Do not think septic joint. Chronic swelling. Monitor CRPs and ESRs. (7) Joint effusion of upper extremity Problem Text: IR will drain tomorrow. Evaluating for possible septic joint. Fluid analysis ordered. May influence abx treatment. (8) CKD (chronic kidney disease), stage III Status: Chronic Response to Treatment: Stable Problem Text: 01/08: stable, creatinine now in normal range. 01/06/19: Remains stable : Stable. We will continue to monitor BUN/Cre 29/1.32, GFR 56 12/31 Scr 1.5, baseline 1.6, monitor. 12/30 Baseline Scr 1.6, today 1.35, cont with IV Lasix, monitor. 12/29/18: baseline Cre~1.6-1.7, GFR ~36-45. Today Cre 1.18, GFR >60, this is most likely d/t his dilutional status. We will monitor (9) Atrial fibrillation Status: Chronic Response to Treatment: Stable Problem Text: 01/08: stable, waiting for opinion from Dr. Schwartz as noted. 01/07/19: Rate controlled. Patient is on Eliquis. This will need to be held for colonoscopy. Dr. Schwartz will be in today to provide clearance for procedure 12/29/18: Rate controlled on Bisoprolol 5mg daily. Currently on Eliquis 5 mg po bid (10) DM2 (diabetes mellitus, type 2) Status: Chronic Response to Treatment: Stable Problem Text: 12/29/18: Managed with Lantus 22 units q hs and Humalog sliding scale outpatient. He is currently being covered with mealtime insulin only. He i s not NPO, but his fasting BGs have been 78, 99 and he has only required 2 units of coverage. We will monitor and make adjustments in regimen accordingly. (11) Diarrhea Status: Resolved Problem Text: 01/12 On oral vancomycin since the . 12/30 No recurrence of loose stools since admission. 12/29/18: Patient with hx of c-diff at his previously hospitalization about approx one month ago. GI panel pending. Plan/VTE VTE Prophylaxis Ordered?: Yes (Eliquis 5mg bid ) Plan Therapy: PT Anticipated Discharge: Sub Acute Rehab (Rec STR at d/c.) VS, I&O, 24H, [facility] Vital Signs/I&O Vital Signs Date Time Temp Pulse Resp B/P (MAP) Pulse Ox O2 Delivery O2 Flow Rate FiO2 01/11/19 15:27 20 01/11/19 15:16 98.1 77 135/63 (87) 95 2 01/11/19 08:41 Nasal Cannula I&O- Last 24 Hours up to 6 AM 01/11/19 06:00 Intake Total 2126 ml Output Total 3225 ml Balance -1099 ml Laboratory Data 24H LABS Laboratory Tests 2 01/10/19 17:21: Bedside Glucose (Misc Panel) 152H 01/10/19 18:34: Immature Granulocyte % (Auto) 0.9, White Blood Count 5.8, Red Blood Count 3.26L, Hemoglobin 9.3L, Hematocrit 30.1L, Mean Corpuscular Volume 92.3, Mean Corpuscul ar Hemoglobin 28.5, Mean Corpuscular Hemoglobin Concent 30.9L, Red Cell Distribution Width 16.4H, Platelet Count 321, Neutrophils (%) (Auto) 79.4H, Lymphocytes (%) (Auto) 9.8L, Monocytes (%) (Auto) 9.4H, Eosinophils (%) (Auto) 0.2, Basophils (%) (Auto) 0.3, Neutrophils # (Auto) 4.6, Lymphocytes # (Auto) 0.6L, Monocytes # (Auto) 0.6, Eosinophils # (Auto) 0.0, Basophils # (Auto) 0.0, Nucleated Red Blood Cells % (auto) 0.0, Total Protein 5.8L 01/10/19 22:28: Bedside Glucose (Misc Panel) 125H 01/11/19 06:20: Erythrocyte Sedimentation Rate 79H, C-Reactive Protein, Quantitative 10.90H 01/11/19 09:03: Bedside Glucose (Misc Panel) 149H 01/11/19 11:48: Bedside Glucose (Misc Panel) 129H CBC/BMP Laboratory Tests 01/10/19 18:34 Red Blood Count 3.26 L, Mean Corpuscular Volume 92.3, Mean Corpuscular Hemoglobin 28.5, Mean Corpuscular Hemoglobin Concent 30.9 L, Red Cell Distribution Width 16.4 H, Neutrophils (%) (Auto) 79.4 H, Lymphocytes (%) (Auto) 9.8 L, Monocytes (%) (Auto) 9.4 H, Eosinophils (%) (Auto) 0.2, Basophils (%) (Auto) 0.3, Neutrophils # (Auto) 4.6, Lymphocytes # (Auto) 0.6 L, Monocytes # (Auto) 0.6, Eosinophils # (Auto) 0.0, Basophils # (Auto) 0.0 Microbiology Microbiology 01/01/19 Blood Culture - Final, Complete NO GROWTH AFTER 5 DAYS GME ATTESTATION GME ATTESTATION My faculty preceptor for this patient encounter was physically present during the encounter and was fully available. All aspects of the patient interview, examination, medical decision making process, and medical care plan development were reviewed and approved by the faculty preceptor. The faculty preceptor is aware and concurs with the plan as stated in the body of this note and will attest to such by his/her cosignature. LAWANDA JOVEL DO Jan 11, 2019 17:07
--- NOTE | 2019-01-11 17:57 | ROOR ---
Patient Name: Javier Cruz Procedure Date: 01/11/2019 4:42 PM Date of : 1945 Age: 73 Room: [facility] Gender: Male Note Status: Finalized Procedure: Upper GI endoscopy Indications: Suspected upper gastrointestinal bleeding in patient with chronic blood loss, Gastrointestinal bleeding of unknown origin Providers: Mike Ugalde MD Referring MD: 2. Inpatient 2. Inpatient Requesting Provider: Medicines: Monitored Anesthesia Care Complications: No immediate complications. Procedure: Pre-Anesthesia Assessment: - Prior to the procedure, a History and Physical was performed, and patient medications and allergies were reviewed. The patient is competent. The risks and benefits of the procedure and the sedation options and risks were discussed with the patient. All questions were answered and informed consent was obtained. Patient identification and proposed procedure were verified by the physician, the nurse and the anesthesiologist in the procedure room. Mental Status Examination: alert and oriented. Airway Examination: normal oropharyngeal airway and neck mobility. Respiratory Examination: clear to auscultation. CV Examination: normal. Prophylactic Antibiotics: The patient does not require prophylactic antibiotics. Prior Anticoagulants: The patient has taken Eliquis (apixaban), last dose was 3 days prior to procedure. ASA Grade Assessment: III - A patient with severe systemic disease. After reviewing the risks and benefits, the patient was deemed in satisfactory condition to undergo the procedure. The anesthesia plan was to use monitored anesthesia care (MAC). Immediately prior to administration of medications, the patient was re-assessed for adequacy to receive sedatives. The heart rate, respiratory rate, oxygen saturations, blood pressure, adequacy of pulmonary ventilation, and response to care were monitored throughout the procedure. The physical status of the patient was re-assessed after the procedure. The Endoscope was introduced through the mouth, and advanced to the second part of duodenum. The upper GI endoscopy was accomplished without difficulty. The patient tolerated the procedure well. Findings: The examined esophagus was normal. Patchy moderately erythematous mucosa without bleeding was found in the gastric body and in the gastric antrum. The duodenal bulb and second portion of the duodenum were normal. Impression: - Normal esophagus. - Erythematous mucosa in the gastric body and antrum. - Normal duodenal bulb and second portion of the duodenum. - No specimens collected. Recommendation: - Patient has a contact number available for emergencies. The signs and symptoms of potential delayed complications were discussed with the patient. Return to normal activities tomorrow. Written discharge instructions were provided to the patient. - Full liquid diet for 1 day, then advance as tolerated to high fiber diet. - Resume Eliquis (apixaban) at prior dose in 2 days. Refer to primary physician for further adjustment of therapy. - Continue present medications. - Discontinue PPIs today. - Use Zantac (ranitidine) 150 mg PO BID for 4 weeks. - Return to GI clinic ( Patients primary GI - Dr. Gaines) in 3 months. - Return to primary care physician. Mike Ugalde MD Mike Ugalde MD 01/11/2019 5:57:03 PM This report has been signed electronically. Number of Addenda: 0 Note Initiated On: 01/11/2019 4:42 PM Estimated Blood Loss: Estimated blood loss: none.
--- NOTE | 2019-01-11 18:05 | ROOR ---
Patient Name: Javier Cruz Procedure Date: 01/11/2019 4:42 PM Date of : 1945 Age: 73 Room: [facility] Gender: Male Note Status: Finalized Procedure: Colonoscopy Indications: Hematochezia, Gastrointestinal bleeding Providers: Mike Ugalde MD Referring MD: 2. Inpatient 2. Inpatient Requesting Provider: Medicines: Monitored Anesthesia Care Complications: No immediate complications. Procedure: Pre-Anesthesia Assessment: - Prior to the procedure, a History and Physical was performed, and patient medications and allergies were reviewed. The patient is competent. The risks and benefits of the procedure and the sedation options and risks were discussed with the patient. All questions were answered and informed consent was obtained. Patient identification and proposed procedure were verified by the physician, the nurse and the anesthesiologist in the procedure room. Mental Status Examination: alert and oriented. Airway Examination: normal oropharyngeal airway and neck mobility. Respiratory Examination: clear to auscultation. CV Examination: normal. Prophylactic Antibiotics: The patient does not require prophylactic antibiotics. Prior Anticoagulants: The patient has taken Eliquis (apixaban), last dose was 3 days prior to procedure. ASA Grade Assessment: III - A patient with severe systemic disease. After reviewing the risks and benefits, the patient was deemed in satisfactory condition to undergo the procedure. The anesthesia plan was to use monitored anesthesia care (MAC). Immediately prior to administration of medications, the patient was re-assessed for adequacy to receive sedatives. The heart rate, respiratory rate, oxygen saturations, blood pressure, adequacy of pulmonary ventilation, and response to care were monitored throughout the procedure. The physical status of the patient was re-assessed after the procedure. The Colonoscope was introduced through the anus and advanced to the terminal ileum, with identification of the appendiceal orifice and IC valve. The colonoscopy was performed without difficulty. The patient tolerated the procedure well. The quality of the bowel preparation was adequate to identify polyps 6 mm and larger in size. The terminal ileum, ileocecal valve, appendiceal orifice, and rectum were photographed. Scope insertion time was 5 minutes. Scope withdrawal time was 12 minutes. The total duration of the procedure was 20 minutes. Findings: The perianal and digital rectal examinations were normal. The terminal ileum appeared normal. A 15 mm polyp was found in the ascending colon. The polyp was flat and sessile. The polyp was removed with a hot snare. Resection and retrieval were complete. To close a defect after polypectomy, three hemostatic clips were successfully placed. There was no bleeding at the end of the procedure. A 15 mm polyp was found in the transverse colon. The polyp was carpet-like and flat. The polyp was removed with a hot snare. Resection and retrieval were complete. To close a defect after polypectomy, four hemostatic clips were successfully placed. There was no bleeding at the end of the procedure. Five sessile polyps were found from the sigmoid to the cecum. The polyps were 3 to 5 mm in size. Polypectomy was not attempted due to the patient taking anticoagulation medication. Non-bleeding external and internal hemorrhoids were found during endoscopy. The hemorrhoids were large. Multiple small and large-mouthed diverticula were found from sigmoid to ascending colon. There was no evidence of diverticular bleeding. Retroflexion in the rectum was not performed due to anatomy. Impression: - The examined portion of the ileum was normal. - One 15 mm polyp in the ascending colon, removed with a hot snare. Resected and retrieved. Clips were placed. - One 15 mm polyp in the transverse colon, removed with a hot snare. Resected and retrieved. Clips were placed. - Five 3 to 5 mm polyps from sigmoid to cecum. Resection not attempted. - Non-bleeding external and internal hemorrhoids. - Severe diverticulosis from sigmoid to ascending colon. There was no evidence of diverticular bleeding. Recommendation: - Patient has a contact number available for emergencies. The signs and symptoms of potential delayed complications were discussed with the patient. Return to normal activities tomorrow. Written discharge instructions were provided to the patient. - Full liquid diet for 1 day, then advance as tolerated to high fiber diet. - Continue present medications. - Await pathology results. - Resume Eliquis (apixaban) at prior dose in 2 days. Refer to primary physician for further adjustment of therapy. - Repeat colonoscopy in 6 months for surveillance of multiple polyps. - Return to GI clinic in 3 months. - Return to primary care physician. Mike Ugalde MD Mike Ugalde MD 01/11/2019 6:05:30 PM This report has been signed electronically. Number of Addenda: 0 Note Initiated On: 01/11/2019 4:42 PM Estimated Blood Loss: Estimated blood loss was minimal.
[2019-01-11] MEDS: FENOFIBRATE 145 MG TAB (TRICOR) PO SCH (18:31)
[2019-01-11] MEDS: BISOPROLOL FUMARATE 5 MG TAB PO SCH (18:32)
[2019-01-11] MEDS: FINASTERIDE 5 MG TAB PO SCH (18:32)
[2019-01-11] MEDS: ROSUVASTATIN 10 MG TAB (CRESTOR) PO SCH (20:11)
[2019-01-11] MEDS: TAMSULOSIN 0.4 MG CAP PO SCH (20:11)
[2019-01-11] MEDS: ACETAMINOPHEN 500 MG TAB PO SCH (20:11)
[2019-01-11] MEDS: LATANOPROST 0.005% OPHTH SOLN 2.5 ML OU SCH (20:13)
[2019-01-11] MEDS: ALPRAZolam 0.25 MG TAB PO PRN (22:46)
[2019-01-12] VITALS: BP 120/60
[2019-01-12] MEDS: IPRATROPIUM 0.5MG/ALBUTEROL 2.5MG INH SOL UD 3ML (DUONEB)(J7620) NEB SCH ×4 (00:08→20:00)
[2019-01-12] MEDS: AMPICILLIN SOD 2 GM in D5W MINI-BAG PLUS 100 ML IV SCH ×6 (02:48→21:21)
[2019-01-12 04:00] VITALS: BP 122/70
[2019-01-12] MEDS: IPRATROPIUM 0.5MG/ALBUTEROL 2.5MG INH SOL UD 3ML (DUONEB)(J7620) NEB PRN ×2 (04:42→17:33)
[2019-01-12] MEDS: SODIUM CHLORIDE 0.9% INJ 10 ML SYR IV SCH ×2 (05:16→17:25)
[2019-01-12] MEDS: ONDANSETRON 4 MG TAB (S0181) PO SCH ×4 (05:17→17:24)
[2019-01-12] MEDS: ACETAMINOPHEN TAB 650MG DOSE (2X325MG) PO PRN ×3 (05:18→18:38)
[2019-01-12 08:00] VITALS: BP 118/65
[2019-01-12] MEDS: SERTRALINE HCL 50 MG TAB PO SCH (09:23)
[2019-01-12] MEDS: HumaLOG INSULIN (NovoLOG) PER UNIT SC SCH ×4 (09:23→20:32)
[2019-01-12] MEDS: FERROUS SULFATE 325MG TAB PO SCH (09:23)
[2019-01-12] MEDS: OMEPRAZOLE 20 MG CAP PO SCH (09:24)
[2019-01-12] MEDS: POTASSIUM CHLORIDE 10 MEQ SR TABLET PO SCH (09:24)
[2019-01-12] MEDS: OMEGA-3 1000MG CAPSULE PO SCH ×2 (09:24→21:22)
[2019-01-12] MEDS: ASPIRIN 81 MG ENTERIC TAB PO SCH (09:24)
[2019-01-12] MEDS: FUROSEMIDE 40 MG TAB PO SCH (09:25)
[2019-01-12] MEDS: VANCOMYCIN ORAL SOL 250MG/5ML ORAL SYRINGE PO SCH ×2 (09:25→21:21)
--- NOTE | 2019-01-12 10:41 | IPNPDOC ---
Subjective Date Seen The patient was seen on 01/12/19. Subjective Chief Complaint/HPI CHF, sepsis Events since last encounter Denies c/o. S/p EGD yesterday see report. Constitutional: Denies: Chills, Fever, Night Sweats Pulmonary: Denies: Dyspnea, Cough Cardiovascular: Denies: Chest Pain, Palpitations, Orthopnea, Paroxysmal Noc. Dyspnea, Lt Headedness Gastrointestinal: Denies: Nausea, Vomiting, Abdominal Pain, Diarrhea, Constipation Genitourinary: Denies: Dysuria, Frequency, Incontinence, Retention Objective Physical Examination General Exam: Positive: Alert, No Acute Distress ENT Exam: Positive: Mucous membr. moist/pink Neck Exam: Positive: Supple; Negative: JVD Chest Exam: Positive: Rhonchi (scattered throughout, slight improvement with cough); Negative: Rales, Wheezing Heart Exam: Positive: Rate Normal, Irregular Rhythm, Murmurs Abdomen Exam: Positive: Normal bowel sounds, Soft; Negative: Tenderness, Hepatospenomegaly, Mass Extremity Exam: Positive: Tenderness, Swelling ( Left shouldar swelling, no erythema. ); Negative: Edema Skin Exam: Positive: Nl turgor and temperature; Negative: Rash Psych Exam: Positive: Mental status NL (alert and oriented x 3), Mood NL (irritable) Assessment /Plan Problems (1) Enterococcus faecalis infection Status: Acute Response to Treatment: Stable Discussed With: Nurse, Physician Extender, Patient Problem Specific Plan: Monitor Clinically Problem Text: 01/12/19: planned joint aspiration today with IR. See ID note. ABx reduced to Vancomycin and Ampicillin. 01/[address] Grant and her will do cardiology clearance later. Eliquis already on hold, has been since 01/07. Colonoscopy scheduled for tomorrow. 01/09: at some point definite answer will be needed regarding whether the heart valves are colonized. Dr. Ugalde will be doing colonoscopy to evaluate for possible colonic source for bactermia once automobile mechanic apprentice provide "clearance". 01/08: concentrated at left shoulder. no significant uptake at vascular grafts 01/07/19: Tagged WBC scan results pending. Afebrile. WBC 6.4. D9 Ampicillin and Ceftriaxone. Patient also on po Vancomycin. Colonoscopy pending cardiology clearance and patient's ability to hold Eliquis for [address] Schwartz this morning. He will come see patient today for clearance. I spoke with Dr. Ugalde and he will place order for prep to start on Thursday with plan for co lonoscopy on Thursday. Patient will continue liquid diet. 01/06/19: Tagged WBC scan is scheduled for today. Abx are on hold until scan is complete. Patient remains afebrile. WBC 5.2. BC from 01/01 remain negative after 5 days. 01/05/18: Dr.. Zarate spoke with Dr. Rosas yesterday. WBC tagged scan was recommended. This will be performed tomorrow. Nuclear Medicine recommended patient be off abx for 24 hours prior to scan. Patient stable, WBC 6.5, afebrile, 12/31 BC negative x 5 days, BC 01/01 negative x 72 hours. We will hold abx tonight and resume them tomorrow. GI consult order placed. Call to Dr. Ugalde placed. He was in clinic and will return call once available. 01/04 Dr Zarate to speak with Dr Rosas today regarding risk of infection at graft site, I spoke with pt regarding consideration of colonoscopy, he has had this done with Dr Gaines in the past and is agreeable for repeat if necessary. 01/03 ANURAG without obvious vegetation although thickening of the valves was noted. He has had 2 Neg BC and therefore an order for PICC has been placed. 05/02 colonoscopy with Eder with mtp sessile polpys + tubular adenomas, rec repeat scope in 6 months, pt has declined. 08/31 LLE endarterectomy with Bovine tissue - Ralph 02/28 RLE fem endarterectomy, R fem/pop bypass with porpraten graft - Ralph address with attending how to proceed regarding identifying source, it is also important to note that Dr Grant doesn't feel endocarditis can be completely excluded d/t thickening of the valves 12/[address] Rudolph yesterday who called concerned regarding the pts prelim BC results, she was consulted for adjustment and recommendations regarding abx. Cardio has been consulted, Dr Grant has seen the patient. He plans to ANURAG probably later today. 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 Last admission he had an E. faecalis bacteremia. It is VERY likely that the bacteria in his blood this time is the same. The fact that her has a persistent bacteremia leads to concerns for either a large and persistent colonic lesion ( e.g dysplastic polyp, or an endocarditis). Dr. Rudolph was consulted and has adjusted his abx while we clarify what is going on. (2) Anemia Status: Acute Response to Treatment: Worse Discussed With: Nurse, Physician Extender, Patient Problem Specific Plan: Monitor Clinically, Repeat Labs Problem Text: 01/10: Continue to monitor hemoglobin. Goal is hgb 9. Repeat CBC AM. Item Value Date Time Hemoglobin 9.3 g/dl L 01/10/19 0440 01/09: Hgb 9.1 01/08: hgb improved to 9.2 01/07/19: Hgb 8.0. We will arrange for transfusion 1 unit of PRBC with Lasix 40 after. We will continue to monitor 01/06/19: Hgb 8.3 this morning, continues to trend down. We will need to continue to monitor this closely and transfuse if indicated. GI was consulted yesterday. Recommendations as follows: - Monitor H/ H and transfuse if needed to keep hemoglobin around 9gm/ dL. Minimize the phlebotomies - As patient is having suspected endocarditis and still having shortness of breath, will consider optimization of cardiac status and clearance by cardiology if patient can be safely be off Apixaban for atleast 3 days prior to Colonoscopy procedure. Urgent Colonoscopy if overt active GI bleeding - Clear liquid diet tomorrow pending above - Will schedule for Colonoscopy based on the above 01/05/19: Hgb 8.6 this morning. We will continue to monitor. GI consulted. Patient has been on Eliquis. 01/04 Hgb stable overnight, cont to monitor. 01/03 Hgb slowing trending down s/p 2 units, monitor closely, OB has not been collected. 01/01 2 units of pRBCs ordered, Lasix to be given between each unit. f/u labs ordered, stool OB, Fe, ferritin, B12 folate (3) Diastolic CHF, chronic Status: Acute Response to Treatment: Stable Discussed With: Nurse, Physician Extender, Patient Problem Text: 01/12/19: appears well compensated today 01/08: no edema, lungs ess clear 01/07/19:Appears well compensated on exam today 01/06/19: Appears compensated on exam today. Peripheral edema has improved. Patient with a negative -[phone] from I's & O's. Renal function remains stable 01/05/19: Appears compensated today 01/03 Lasix 40 mg daily, appears compensated 12/31 [facility] [place] been [place]. Lasix IV 40 mg q12h, I remain unconvinced that his I & Os are accurate, listing 600 in yesterday and 1200 out. Cont to monitor, Scr increased to 1.5 today, baseline is 1.6-1.7, he will be getting 2 units of blood today and an order for Lasix 20 mg between each unit was placed. 12/30 Lasx IV q12h, I + Os appear to be inaccurate, spoke to nursing, slight bump in Scr, monitor, anticipate changing to HD Lasix tomorrow, 40 mg daily. Enc BARRON diet. 12/29/18: Started on Lasix 40mg IV q 12 hours with a net negative of 2L, 1800 cc fluid restriction Chest Xray Impression: Probable interstitial infiltrates. (4) Hypokalemia Status: Resolved Response to Treatment: Improving Problem Text: 01/10 Normal range today. Continue to monitor. 12/30 K + 3.8, cont with daily replacement while on IV lasix. 12/29/18: K+ 3.2. Replaced with K+ 40 meq x 1 today, repeat K+ level this afternoon. We will start K+ 40meq po q day and monitor (5) CKD (chronic kidney disease), stage III Status: Chronic Response to Treatment: Stable Problem Text: 01/08: stable, creatinine now in normal range. 01/06/19: Remains stable : Stable. We will continue to monitor BUN/Cre 29/1.32, GFR 56 12/31 Scr 1.5, baseline 1.6, monitor. 12/30 Baseline Scr 1.6, today 1.35, cont with IV Lasix, monitor. 12/29/18: baseline Cre~1.6-1.7, GFR ~36-45. Today Cre 1.18, GFR >60, this is most likely d/t his dilutional status. We will monitor (6) Atrial fibrillation Status: Chronic Response to Treatment: Stable Problem Text: 01/12/19: eliquis to resume tomorrow post EGD and joint aspiration. 01/08: stable, waiting for opinion from Dr. Schwartz as noted. 01/07/19: Rate controlled. Patient is on Eliquis. This will need to be held for colonoscopy. Dr. Schwartz will be in today to provide clearance for procedure 12/29/18: Rate controlled on Bisoprolol 5mg daily. Currently on Eliquis 5 mg po bid (7) DM2 (diabetes mellitus, type 2) Status: Chronic Response to Treatment: Stable Problem Text: 12/29/18: Managed with Lantus 22 units q hs and Humalog sliding scale outpatient. He is currently being covered with mealtime insulin only. He is not NPO, but his fasting BGs have been 78, 99 and he has only required 2 units of coverage. We will monitor and make adjustments in regimen accordingly. (8) Left shoulder pain Status: Chronic Response to Treatment: Stable Problem Specific Plan: Consult Specialist (Appreciate detailed and thoughtful note from Dr. Farrar. Seems less likely acutely infected and more likely chronic inflammatory problem.) Problem Text: 01/12/19: planned joint aspiration with IR today Swelling noted. Ortho was consulted. Monitoring for now. Do not think septic joint. Chronic swelling. Monitor CRPs and ESRs. Plan/VTE VTE Prophylaxis Ordered?: No (eliquis on hold post procwedure. ) Plan Therapy: PT Anticipated Discharge: Sub Acute Rehab (Rec STR at d/c.) VS, I&O, 24H, Fishbone Vital Signs/I&O Vital Signs Date Time Temp Pulse Resp B/P (MAP) Pulse Ox O2 Delivery O2 Flow Rate FiO2 01/12/19 08:00 98.5 67 20 118/65 (82) 97 2.0 01/11/19 08:41 Nasal Cannula I&O- Last 24 Hours up to 6 AM 01/12/19 06:00 Intake Total 1040 ml Output Total 900 ml Balance 140 ml Laboratory Data 24H LABS Laboratory Tests 2 01/11/19 11:48: Bedside Glucose (Misc Panel) 129H 01/11/19 18:45: Bedside Glucose (Misc Panel) 89 01/11/19 20:26: Bedside Glucose (Misc Panel) 180H 01/12/19 04:24: Erythrocyte Sedimentation Rate 85H, C-Reactive Protein, Quantitative 11.60H 01/12/19 07:11: Bedside Glucose (Misc Panel) 150H Claudia Snyder TELEPHONE OPERATOR CHIEF Jan 12, 2019 10:41
[2019-01-12] MEDS ORDERED: LIDOCAINE 1% MDV 20ML VIAL As Ordered ONE (11:27)
[2019-01-12 12:00] VITALS: BP 141/63
[2019-01-12] MEDS: FENOFIBRATE 145 MG TAB (TRICOR) PO SCH (12:27)
[2019-01-12] MEDS: FINASTERIDE 5 MG TAB PO SCH (12:27)
[2019-01-12] MEDS: BISOPROLOL FUMARATE 5 MG TAB PO SCH (12:27)
[2019-01-12] MEDS: LISINOPRIL 10 MG TAB PO SCH ×2 (12:28→21:22)
[2019-01-12 12:46] LABS: MUCIN CLOT TEST 4+ (4+)
[2019-01-12 12:57] LABS: SOURCE, BODY FLUID LT SHOULDER; SYNOVIAL FLUID COLOR RED (YELLOW)
[2019-01-12 13:02] LABS: CRYSTALS, BODY FLUID NONE SEEN (NONE SEEN); SOURCE, BODY FLUID CRYSTALS LT SHOULDER
[2019-01-12 13:16] LABS: SOURCE, BODY FLUID GLUCOSE LT SHOULDER; TOTAL PROTEIN, BODY FLUID 4.3 G/DL (NOT ESTABLISHED)
[2019-01-12 13:19] LABS: SOURCE, BODY FLUID TOT PROTEIN OTHER
[2019-01-12 14:10] VITALS: BP 132/60
[2019-01-12] MEDS: ROSUVASTATIN 10 MG TAB (CRESTOR) PO SCH (21:21)
[2019-01-12] MEDS: TAMSULOSIN 0.4 MG CAP PO SCH (21:21)
[2019-01-12] MEDS: ACETAMINOPHEN 500 MG TAB PO SCH (21:22)
[2019-01-12] MEDS: ALPRAZolam 0.25 MG TAB PO PRN (21:58)
[2019-01-12] MEDS: SODIUM CHLORIDE 0.9% INJ 10 ML SYR IV PRN (21:58)
[2019-01-12 22:00] VITALS: BP 118/57
[2019-01-12] MEDS: LATANOPROST 0.005% OPHTH SOLN 2.5 ML OU SCH (22:37)
[2019-01-13] MEDS: ACETAMINOPHEN TAB 650MG DOSE (2X325MG) PO PRN ×2 (00:30→16:25)
[2019-01-13] MEDS: AMPICILLIN SOD 2 GM in D5W MINI-BAG PLUS 100 ML IV SCH ×6 (00:46→21:04)
[2019-01-13] MEDS: ONDANSETRON 4 MG TAB (S0181) PO SCH ×4 (00:46→17:57)
[2019-01-13] MEDS: IPRATROPIUM 0.5MG/ALBUTEROL 2.5MG INH SOL UD 3ML (DUONEB)(J7620) NEB SCH ×4 (02:00→18:24)
[2019-01-13] MEDS: SODIUM CHLORIDE 0.9% INJ 10 ML SYR IV SCH ×2 (05:37→17:58)
[2019-01-13] MEDS: ALPRAZolam 0.25 MG TAB PO PRN ×2 (05:37→22:16)
[2019-01-13 06:00] VITALS: BP 129/60
[2019-01-13 06:02] LABS: BASO % 0.5 % (0.0-1.0); EOS # 0.1 10^3/uL (0.0-0.50); EOS % 1.3 % (0.0-3.0); LYMPH % 18.1 % (24.0-44.0); MEAN CORPUSCULAR HEMOGLOBIN 28.1 pg (27.0-33.0); MEAN CORPUSCULAR VOLUME 90.6 fl (80.0-96.0); MONO # 0.5 10^3/uL (0.0-0.8); MONO % 9.4 % (0.0-5.0); NEUTROPHILS # 3.9 10^3/uL (1.8-7.7); NEUTROPHILS % 69.8 % (36.0-66.0); PLATELET COUNT, AUTOMATED 343 10^3/uL (150-450); WHITE BLOOD COUNT 5.5 10^3/uL (4.0-10.0)
[2019-01-13 06:16] LABS: ALBUMIN 1.9 GM/DL (3.2-5.2); ALT/SGPT 11 U/L (12-78); BILIRUBIN,TOTAL 0.4 MG/DL (0.2-1.0); BLOOD UREA NITROGEN 17 MG/DL (7-18); CALCIUM LEVEL 8.1 MG/DL (8.8-10.2); CARBON DIOXIDE LEVEL 30 MEQ/L (21-32); CHLORIDE LEVEL 101 MEQ/L (98-107); CREATININE FOR GFR 1.24 MG/DL (0.70-1.30); GLOMERULAR FILTRATION RATE > 60.0 (>42); GLUCOSE, FASTING 120 MG/DL (70-100); POTASSIUM SERUM 4.9 MEQ/L (3.5-5.1); SODIUM LEVEL 135 MEQ/L (136-145); TOTAL PROTEIN 6.3 GM/DL (6.4-8.2)
[2019-01-13 06:25] LABS: ERYTHROCYTE SEDIMENTATION RATE 106 mm/hr (0-20)
[2019-01-13] MEDS: IPRATROPIUM 0.5MG/ALBUTEROL 2.5MG INH SOL UD 3ML (DUONEB)(J7620) NEB PRN (06:42)
--- NOTE | 2019-01-13 08:13 | REP ---
ULTRASOUND-GUIDED LEFT SHOULDER ASPIRATION The procedure was performed under the direct supervision of Dr. Lucio. The risks and benefits of the procedure were explained to the patient and informed consent was obtained. The left shoulder joint effusion was localized using ultrasound guidance. The skin was prepped and draped in a sterile fashion. 1% lidocaine was used as a local anesthetic. Using ultrasound guidance a 5-[place] Skater centesis catheter was inserted and 30 ml of red colored fluid was withdrawn and sent to lab for analysis. The patient tolerated the procedure well and there were no immediate complications. After the appropriate amount of monitored convalescence the patient was discharged from the department. Reviewed by FLAVIO Will 01/12/2019 04:15 P Electronically Signed by Ervin Lucio MD 01/13/2019 08:04 A
[2019-01-13] MEDS: FUROSEMIDE 40 MG TAB PO SCH (08:18)
[2019-01-13] MEDS: OMEPRAZOLE 20 MG CAP PO SCH (08:19)
[2019-01-13] MEDS: POTASSIUM CHLORIDE 10 MEQ SR TABLET PO SCH (08:19)
[2019-01-13] MEDS: SERTRALINE HCL 50 MG TAB PO SCH (08:19)
[2019-01-13] MEDS: VANCOMYCIN ORAL SOL 250MG/5ML ORAL SYRINGE PO SCH ×2 (08:19→21:05)
[2019-01-13] MEDS: OMEGA-3 1000MG CAPSULE PO SCH ×2 (08:19→21:05)
[2019-01-13] MEDS: ASPIRIN 81 MG ENTERIC TAB PO SCH (08:19)
[2019-01-13] MEDS: FERROUS SULFATE 325MG TAB PO SCH (08:19)
[2019-01-13] MEDS: HumaLOG INSULIN (NovoLOG) PER UNIT SC SCH ×4 (08:20→21:00)
--- NOTE | 2019-01-13 09:35 | IPN ---
DATE: 01/13/2019 CHIEF COMPLAINT: Followup of left shoulder, query Infection. HISTORY OF PRESENT ILLNESS: This is a 73-year-old man who was seen today on the [facility] again for followup of his left shoulder pain and swelling. He had an aspiration done yesterday, so I am following up on that. He is doing well without complaints or concerns from him. PHYSICAL EXAM: He is a well-appearing 73-year-old man no acute distress. His left shoulder has a bandage overlying the anterior aspiration site. The swelling looks about the same. The fullness is the same. There is moderate sized subdeltoid appearing effusion. There is no overlying redness, drainage or warmth. LABORATORY EXAMINATION: Preliminary result of the aspiration reveal ++WBCs and no organism seen. Unfortunately there is no report yet from exactly what the fluid looks like or how much was aspirated. My initial interpretation of the ultrasound was performed for his left shoulder aspiration is subdeltoid fluid without heterogeneous fluid collections. This is a very limited ultrasound examination and I had difficulty determining whether there is fluid inside the glenohumeral joint. ASSESSMENT AND PLAN: For now it looks like a sterile inflammatory reaction of his left shoulder in the absence of a positive Gram-stain. We will await on final cultures. For now, I would not change his antibiotics and continue to follow him clinically.
[2019-01-13] MEDS: BISOPROLOL FUMARATE 5 MG TAB PO SCH (12:00)
--- NOTE | 2019-01-13 13:00 | IPNPDOC ---
Subjective Date Seen The patient was seen on 01/13/19. Subjective Chief Complaint/HPI Patient is doing well, sitting up and eating. His left shoulder still bothers him but less today. No chest pain, palpitations. Constitutional: Denies: Chills, Fever Cardiovascular: Denies: Chest Pain Objective Physical Examination General Exam: Positive: Alert, No Acute Distress ENT Exam: Positive: Mucous membr. moist/pink Neck Exam: Positive: Supple; Negative: JVD Chest Exam: Positive: Rales, Rhonchi (scattered throughout, slight improvement with cough); Negative: Wheezing Heart Exam: Positive: Rate Normal, Irregular Rhythm, Murmurs Abdomen Exam: Positive: Normal bowel sounds, Soft; Negative: Tenderness, Hepatospenomegaly, Mass Extremity Exam: Positive: Tenderness (Left shouldar), Swelling ( Left shouldar swelling, no erythema. ); Negative: Edema Skin Exam: Positive: Nl turgor and temperature; Negative: Rash Psych Exam: Positive: Mental status NL (alert and oriented x 3), Mood NL (irritable) Assessment /Plan Problems (1) Enterococcus faecalis infection Status: Acute Response to Treatment: Stable Discussed With: Nurse, Price Checker, Patient Problem Specific Plan: Monitor Clinically Problem Text: 01/13 Colonoscopy fragments of Tubular adenoma found. Left shouldar culture pending. Fluid shows high amount of WBCs, polymorphonuclear. Spoke with reyna Fleming. He agreed to wash out joint if culture returns positive. Initial gram stain shows no organisms. If negative consider calling vascular to evaluate stents. 01/11 Dr. Grant cleared patient. Plan is to have colonoscopy done this after noon. Martha continue to be on hold. IR will perform shoulder US drain tomorrow. May need to evaluate patient's grafts for possible source. 01/[address] Grant and her will do cardiology clearance later. Martha already on hold, has been since 01/07. Colonoscopy scheduled for tomorrow. 01/09: at some point definite answer will be needed regarding whether the heart valves are colonized. Dr. Ugalde will be doing colonoscopy to evaluate for possible colonic source for bactermia once manager image provide "clearance". 01/08: concentrated at left shoulder. no significant uptake at vascular grafts 01/07/19: Tagged WBC scan results pending. Afebrile. WBC 6.4. D9 Ampicillin and Ceftriaxone. Patient also on po Vancomycin. Colonoscopy pending cardiology clearance and patient's ability to hold Eliquis for [address] Schwartz this morning. He will come see patient today for clearance. I spoke with Dr. Ugalde and he will place order for prep to start on Thursday with plan for colonoscopy on Thursday. Patient will continue liquid diet. 01/06/19: Tagged WBC scan is scheduled for today. Abx are on hold until scan is complete. Patient remains afebrile. WBC 5.2. BC from 01/01 remain negative after 5 days. 01/05/18: Dr.. Zarate spoke with Dr. Rosas yesterday. WBC tagged scan was recom mended. This will be performed tomorrow. Nuclear Medicine recommended patient be off abx for 24 hours prior to scan. Patient stable, WBC 6.5, afebrile, 12/31 BC negative x 5 days, BC 01/01 negative x 72 hours. We will hold abx tonight and resume them tomorrow. GI consult order placed. Call to Dr. Ugalde placed. He was in clinic and will return call once available. 01/04 Dr Zarate to speak with Dr Rosas today regarding risk of infection at graft site, I spoke with pt regarding consideration of colonoscopy, he has had this done with Dr Gaines in the past and is agreeable for repeat if nec essary. 01/03 ANURAG without obvious vegetation although thickening of the valves was noted. He has had 2 Neg BC and therefore an order for PICC has been placed. 05/02 colonoscopy with Eder with mtp sessile polpys + tubular adenomas, rec repeat scope in 6 months, pt has declined. 08/31 LLE endarterectomy with Bovine tissue - Ralph 02/28 RLE fem endarterectomy, R fem/pop bypass with porpraten graft - Ralph address with attending how to proceed regarding identifying source, it is also important to note that Dr Grant doesn't feel endocarditis can be completely excluded d/t thickening of the valves 12/[address] Rudolph yesterday who called concerned regarding the pts prelim BC results, she was consulted for adjustment and recommendations regarding abx. Cardio has been consulted, Dr Grant has seen the patient. He plans to ANURAG probably later today. 12/31- [employer]ESSION[employer]- Both blood cx are positive for G+ bacteria. Last admission he had an E. faecalis bacteremia. It is VERY likely that the bacteria in his blood this time is the same. The fact that her has a persistent bacteremia leads to concerns for either a large and persistent colonic lesion ( e.g dysplastic polyp, or an endocarditis). Dr. Rudolph was consulted and has adjusted his abx while we clarify what is going on. (2) Anemia Status: Acute Response to Treatment: Worse Discussed With: Nurse, Price Checker, Patient Problem Specific Plan: Monitor Clinically, Repeat Labs Problem Text: 01/13 Colonoscopy did not show source of bleeding. Hemoglobin stable. Item Value Date Time Hemoglobin 9.0 g/dl L 01/13/19 0536 Hematocrit 29.0 % L 01/13/19 0536 01/11 Hgb stable. 01/10: Continue to monitor hemoglobin. Goal is hgb 9. Repeat CBC AM. Item Value Date Time Hemoglobin 9.3 g/dl L 01/10/19 0440 01/09: Hgb 9.1 01/08: hgb improved to 9.2 01/07/19: Hgb 8.0. We will arrange for transfusion 1 unit of PRBC with Lasix 40 after. We will continue to monitor 01/06/19: Hgb 8.3 this morning, continues to trend down. We will need to continue to monitor this closely and transfuse if indicated. GI was consulted yesterday. Recommendations as follows: - Monitor H/ H and transfuse if needed to keep hemoglobin around 9gm/ dL. Minimize the phlebotomies - As patient is having suspected endocarditis and still having shortness of breath, will consider optimization of cardiac status and clearance by cardiology if patient can be safely be off Apixaban for atleast 3 days prior to Colonoscopy procedure. Urgent Colonoscopy if overt active GI bleeding - Clear liquid diet tomorrow pending above - Will schedule for Colonoscopy based on the above 01/05/19: Hgb 8.6 this morning. We will continue to monitor. GI consulted. Patient has been on Eliquis. 01/04 Hgb stable overnight, cont to monitor. 01/03 Hgb slowing trending down s/p 2 units, monitor closely, OB has not been collected. 01/01 2 units of pRBCs ordered, Lasix to be given between each unit. f/u labs ordered, stool OB, Fe, ferritin, B12 folate (3) Diastolic CHF, chronic Status: Acute Response to Treatment: Stable Discussed With: Nurse, Price Checker, Patient Problem Text: 01/13 Patient has rales on exam. Extra dose of lasix today. Monitor vitals. Repeat BMP in AM. 01/08: no edema, lungs ess clear 01/07/19:Appears well compensated on exam today 01/06/19: Appears compensated on exam today. Peripheral edema has improved. Patient with a negative -[phone] from I's & O's. Renal function remains stable 01/05/19: Appears compensated today 01/03 Lasix 40 mg daily, appears compensated 12/31 [facility] - Dr Grant has been consulted. Lasix IV 40 mg q12h, I remain unconvinced that his I & Os are accurate, listing 600 in yesterday and 1200 out. Cont to monitor, Scr increased to 1.5 today, baseline is 1.6-1.7, he will be getting 2 units of blood today and an order for Lasix 20 mg between each unit was placed. 12/30 Lasx IV q12h, I + Os appear to be inaccurate, spoke to nursing, slight bump in Scr, monitor, anticipate changing to HD Lasix tomorrow, 40 mg daily. Enc BARRON diet. 12/29/18: Started on Lasix 40mg IV q 12 hours with a net negative of 2L, 1800 cc fluid restriction Chest Xray Impression: Probable interstitial infiltrates. (4) Hypokalemia Status: Resolved Response to Treatment: Improving Problem Text: 01/10 Normal range today. Continue to monitor. 12/30 K + 3.8, cont with daily replacement while on IV lasix. 12/29/18: K+ 3.2. Replaced with K+ 40 meq x 1 today, repeat K+ level this afternoon. We will start K+ 40meq po q day and monitor (5) Left shoulder pain Status: Chronic Response to Treatment: Stable Problem Specific Plan: Consult Specialist (Appreciate detailed and thoughtful note from Dr. Farrar. Seems less likely acutely infected and more likely chronic inflammatory problem.) Problem Text: 01/11 IR consulted. Will have drain placed tomorrow and fluid analyzed. Spoke with ID who agree with plan. Swelling noted. Ortho was consulted. Monitoring for now. Do not think septic amadou nt. Chronic swelling. Monitor CRPs and ESRs. (6) Joint effusion of upper extremity Problem Text: 01/13 Fluid shows high WBC. Culture pending. Spoke with Ortho. Monitor for now. If culture positive consider wash out in OR. Dr. Farrar composition stone applicator this weekend. Item Value Date Time Mean Corpuscular Volume 90.6 fl 01/13/19 0536 Body Fluid Source LT SHOULDER 01/10/19 1804 Body Fluid WBC (Auto) 26700 /uL H 01/10/19 1804 Body Fluid Mononuclear Cells % Auto 4.3 % H 01/10/19 1804 Fluid Polymorphonuclear Cell % Auto 95.7 % H 01/10/19 1804 Body Fluid Crystals NONE SEEN 01/10/19 1804 Body Fluid Glucose 19 MG/DL 01/10/19 1804 Synovial Fluid Mucin Clot 4+ 01/10/19 1804 Synovial Fluid Color RED 01/10/19 180 Synovial Fluid Appearance HAZY 01/10/19 180 Body Fluid Total Protein 4.3 G/DL 01/10/19 180 Body Fluid RBC (Auto) 7 10^3/uL 01/10/19 1804 IR will drain tomorrow. Evaluating for possible septic joint. Fluid analysis ordered. May influence abx treatment. (7) CKD (chronic kidney disease), stage III Status: Chronic Response to Treatment: Stable Problem Text: 01/13 Repeat in AM. Stable. 01/08: stable, creatinine now in normal range. 01/06/19: Remains stable : Stable. We will continue to monitor BUN/Cre 29/1.32, GFR 56 12/31 Scr 1.5, baseline 1.6, monitor. 12/30 Baseline Scr 1.6, today 1.35, cont with IV Lasix, monitor. 12/29/18: baseline Cre~1.6-1.7, GFR ~36-45. Today Cre 1.18, GFR >60, this is most likely d/t his dilutional status. We will monitor (8) Chest wall pain Status: Resolved Response to Treatment: Improving Discussed With: Nurse, Patient Problem Specific Plan: Repeat Tests Problem Text: 12/30 I did NOT palpate crepitations today or last week in office, Xray Neg for fractures. 12/29 He was complaining of chest pain. On examination he has tenderness on palpation over the R chest wall with increased "buoyancy" of the ribs and mild crepitations noted. He reports that Sharon Larson, R-PAC told him he had some rib fractures after a fall last week, but I don't see any radiographic documentation of this. I will order a right rib series for further evaluation. (9) Atrial fibrillation Status: Chronic Response to Treatment: Stable Problem Text: 01/08: stable, waiting for opinion from Dr. Schwartz as noted. 01/07/19: Rate controlled. Patient is on Eliquis. This will need to be held for colonoscopy. Dr. Schwartz will be in today to provide clearance for procedure 12/29/18: Rate controlled on Bisoprolol 5mg daily. Currently on Eliquis 5 mg po bid (10) DM2 (diabetes mellitus, type 2) Status: Chronic Response to Treatment: Stable Problem Text: 12/29/18: Managed with Lantus 22 units q hs and Humalog sliding scale outpatient. He is currently being covered with mealtime insulin only. He is not NPO, but his fasting BGs have been 78, 99 and he has only required 2 units of coverage. We will monitor and make adjustments in regimen accordingly. (11) Diarrhea Status: Resolved Problem Text: 01/13 on prophylactic PO vancomycin per ID 01/12 On oral vancomycin since the . 12/30 No recurrence of loose stools since admission. 12/29/18: Patient with hx of c-diff at his previously hospitalization about approx one month ago. GI panel pending. Plan/VTE VTE Prophylaxis Ordered?: No (eliquis on hold post procwedure. ) Plan Therapy: PT Anticipated Discharge: Sub Acute Rehab (Rec STR at d/c.) VS, I&O, 24H, Fishbone Vital Signs/I&O Vital Signs Date Time Temp Pulse Resp B/P (MAP) Pulse Ox O2 Delivery O2 Flow Rate FiO2 01/13/19 08:58 2.0 01/13/19 06:00 97.9 63 18 129/60 (83) 97 01/11/19 08:41 Nasal Cannula I&O- Last 24 Hours up to 6 AM0 01/13/19 06:00 Intake Total 870 ml Output Total 1105 ml Balance -235 ml Laboratory Data 24H LABS Laboratory Tests 2 01/12/19 16:54: Bedside Glucose (Misc Panel) 134H 01/12/19 20:18: Bedside Glucose (Misc Panel) 219H 01/13/19 05:36: Immature Granulocyte % (Auto) 0.9, White Blood Count 5.5, Red Blood Count 3.20L, Hemoglobin 9.0L, Hematocrit 29.0L, Mean Corpuscular Volume 90.6, Mean Corpuscular Hemoglobin 28.1, Mean Corpuscular Hemoglobin Concent 31.0L, Red Cell Distribution Width 16.1H, Platelet Count 343, Neutrophils (%) (Auto) 69.8H, Lymphocytes (%) (Auto) 18.1L, Monocytes (%) (Auto) 9.4H, Eosinophils (%) (Auto) 1.3, Basophils (%) (Auto) 0.5, Neutrophils # (Auto) 3.9, Lymphocytes # (Auto) 1.0L, Monocytes # (Auto) 0.5, Eosinophils # (Auto) 0.1, Basophils # (Auto) 0.0, Nucleated Red Blood Cells % (auto) 0.0, Erythrocyte Sedimentation Rate 106H, Anion Gap 4L, Glomerular Filtration Rate > 60.0, Blood Urea Nitrogen 17, Creatinine 1.24, Sodium Level 135L, Potassium Level 4.9, Chloride Level 101, Carbon Dioxide Level 30, Calcium Level 8.1L, Aspartate Amino Transf (AST/SGOT) 12, Alanine Aminotransferase (ALT/SGPT) 11L, Alkaline Phosphatase 61, Total Bilirubin 0.4, Total Protein 6.3L, Albumin 1.9L, C-Reactive Protein, Quantitative 11.00H, Albumin/Globulin Ratio 0.43L 01/13/19 11:41: Bedside Glucose (Misc Panel) 251H CBC/BMP Laboratory Tests 01/13/19 05:36 Red Blood Count 3.20 L, Mean Corpuscular Volume 90.6, Mean Corpuscular Hemoglobin 28.1, Mean Corpuscular Hemoglobin Concent 31.0 L, Red Cell Distribution Width 16.1 H, Neutrophils (%) (Auto) 69.8 H, Lymphocytes (%) (Auto) 18.1 L, Monocytes (%) (Auto) 9.4 H, Eosinophils (%) (Auto) 1.3, Basophils (%) (Auto) 0.5, Neutrophils # (Auto) 3.9, Lymphocytes # (Auto) 1.0 L, Monocytes # (Auto) 0.5, Eosinophils # (Auto) 0.1, Basophils # (Auto) 0.0, Calcium Level 8.1 L, Aspartate Amino Transf (AST/SGOT) 12, Alanine Aminotransferase (ALT/SGPT) 11 L, Alkaline Phosphatase 61, Total Bilirubin 0.4, Total Protein 6.3 L, Albumin 1.9 L Microbiology Microbiology 01/12/19 Anaerobic Culture, Received Pending 01/12/19 Gram Stain - Final, Resulted 01/12/19 Abscess Culture, Resulted Pending GME ATTESTATION GME ATTESTATION My faculty preceptor for this patient encounter was physically present during the encounter and was fully available. All aspects of the patient interview, ex amination, medical decision making process, and medical care plan development were reviewed and approved by the faculty preceptor. The faculty preceptor is aware and concurs with the plan as stated in the body of this note and will attest to such by his/her cosignature. LAWANDA JOVEL DO Jan 13, 2019 13:00
[2019-01-13] MEDS: FENOFIBRATE 145 MG TAB (TRICOR) PO SCH (13:05)
[2019-01-13] MEDS: LISINOPRIL 10 MG TAB PO SCH ×2 (13:05→21:04)
[2019-01-13] MEDS: FINASTERIDE 5 MG TAB PO SCH (13:05)
[2019-01-13 14:00] VITALS: BP 135/63
[2019-01-13] MEDS ORDERED: FUROSEMIDE 40 MG TAB PO ONE (14:00)
[2019-01-13] MEDS: TAMSULOSIN 0.4 MG CAP PO SCH (21:04)
[2019-01-13] MEDS: ROSUVASTATIN 10 MG TAB (CRESTOR) PO SCH (21:05)
[2019-01-13] MEDS: ACETAMINOPHEN 500 MG TAB PO SCH (21:05)
[2019-01-13] MEDS: LACTOBACILLUS ACIDOPHILUS CAP (BACID) PO SCH (21:05)
[2019-01-13] MEDS: LATANOPROST 0.005% OPHTH SOLN 2.5 ML OU SCH (21:06)
[2019-01-13 22:00] VITALS: BP 146/63
[2019-01-14] MEDS: ONDANSETRON 4 MG TAB (S0181) PO SCH ×5 (00:15→23:06)
[2019-01-14] MEDS: IPRATROPIUM 0.5MG/ALBUTEROL 2.5MG INH SOL UD 3ML (DUONEB)(J7620) NEB SCH ×4 (01:09→21:15)
[2019-01-14] MEDS: AMPICILLIN SOD 2 GM in D5W MINI-BAG PLUS 100 ML IV SCH ×6 (01:32→21:45)
[2019-01-14] MEDS: SODIUM CHLORIDE 0.9% INJ 10 ML SYR IV SCH ×2 (05:32→17:32)
[2019-01-14 06:00] VITALS: BP 140/55
[2019-01-14 08:00] LABS: BASO % 0.4 % (0.0-1.0); EOS % 0.6 % (0.0-3.0); HEMATOCRIT 28.9 % (42.0-52.0); HEMOGLOBIN 8.9 g/dl (13.5-17.5); LYMPH # 0.7 10^3/uL (1.5-4.5); LYMPH % 12.5 % (24.0-44.0); MEAN CORPUSCULAR HGB CONC 30.8 g/dl (32.0-36.5); MEAN CORPUSCULAR VOLUME 90.9 fl (80.0-96.0); MONO # 0.5 10^3/uL (0.0-0.8); NEUTROPHILS # 3.9 10^3/uL (1.8-7.7); NEUTROPHILS % 75.3 % (36.0-66.0); PLATELET COUNT, AUTOMATED 350 10^3/uL (150-450); RED BLOOD COUNT 3.18 10^6/uL (4.30-6.10); WHITE BLOOD COUNT 5.2 10^3/uL (4.0-10.0)
[2019-01-14 08:19] LABS: ALBUMIN 1.9 GM/DL (3.2-5.2); BILIRUBIN,TOTAL 0.3 MG/DL (0.2-1.0); CALCIUM LEVEL 8.2 MG/DL (8.8-10.2); CREATININE FOR GFR 1.57 MG/DL (0.70-1.30); GLOMERULAR FILTRATION RATE 46.1 (>42); POTASSIUM SERUM 5.5 MEQ/L (3.5-5.1); TOTAL PROTEIN 5.8 GM/DL (6.4-8.2)
[2019-01-14] MEDS: OMEPRAZOLE 20 MG CAP PO SCH (08:29)
[2019-01-14] MEDS: FUROSEMIDE 40 MG TAB PO SCH (08:30)
[2019-01-14] MEDS: ASPIRIN 81 MG ENTERIC TAB PO SCH (08:30)
[2019-01-14] MEDS: OMEGA-3 1000MG CAPSULE PO SCH ×2 (08:30→20:18)
[2019-01-14] MEDS: VANCOMYCIN ORAL SOL 250MG/5ML ORAL SYRINGE PO SCH (08:30)
[2019-01-14] MEDS: FERROUS SULFATE 325MG TAB PO SCH (08:31)
[2019-01-14] MEDS: HumaLOG INSULIN (NovoLOG) PER UNIT SC SCH ×4 (08:31→21:07)
[2019-01-14] MEDS: SERTRALINE HCL 50 MG TAB PO SCH (08:31)
[2019-01-14] MEDS: LACTOBACILLUS ACIDOPHILUS CAP (BACID) PO SCH ×2 (08:31→20:18)
--- NOTE | 2019-01-14 08:35 | IPN ---
DATE OF SERVICE: 01/14/2019 CHIEF COMPLAINT: Followup of left shoulder swelling. HISTORY OF PRESENT ILLNESS: This is a 73-year-old man who has had multiple episodes of E faecalis septicemia. I spoke with Dr. Rudolph and the hospitalists, who are managing his care. They are both convinced that the shoulder is the source of his recurrent infections and were quite adamant that I consider doing an irrigation and debridement. I saw him again this morning to re-evaluate the shoulder for consideration of the irrigation debridement for source control. PHYSICAL EXAMINATION: Vital signs: Temperature 97.7. Blood pressure 140/55. Pulse rate 86. Saturating 96% on 2 liters nasal prongs. He is alert and oriented. Mood and affect is a little bit withdrawn, anxious and irritated this morning. In terms of his shoulder, the swelling looks about the same. No redness or warmth of the shoulder. There is still a moderate sized effusion. ASSESSMENT/PLAN: 73-year-old man. I propose that we perform an irrigation and debridement through arthroscopy today. He was made nothing by mouth last night in preparation for this. When I proposed what we could do with the shoulder, he absolutely refused. He does not want anything done with the shoulder. I tried to explain it is a fairly low risk procedure and could benefit in terms of these recurrent infections. He really does not want anything done and I have communicated this to Dr. Rudolph as well at this point. We had made him nothing by mouth and he was demanding to eat and also that his blood work be done this morning and we also communicated that to his nursing team. For now, I have left this obviously up to him as I cannot force him to have anything done but I explained the pros and cons, risks and benefits of doing nothing versus irrigation and debridement If he changes his mind, I am aviation electrician this weekend from Thursday to Thursday and I will continue to follow him intermittently. YARON
--- NOTE | 2019-01-14 08:47 | IPN ---
DATE: 01/14/2019 Javier is seen on [facility]. He is supposed to be going to the operating room today for probable septic left shoulder. Unfortunately, he is refusing to have laboratories drawn this morning or go to the operating room so we are going to have to cancel the procedure. He did become belligerent in the morning and has been refusing laboratories and other interventions. I came to see him today after he had been awake for a while but he is adamantly refusing to go to the operating room (see below). He says that he is less short of breath but still has dyspnea, which is baseline. PHYSICAL EXAMINATION: 140/85, oxygen saturation 96%, afebrile. GENERAL APPEARANCE: He is alert, he is conversant. He knows his location in the hospital in [place]. He is able to name his physician. No jugular venous distention (JVD). Lungs: Decreased breath sounds. Heart: Regular rate and rhythm. Abdomen: Soft and nontender. Extremities: Trace peripheral edema. LABORATORIES: Not drawn this morning, the patient declined. IMPRESSION: 1. Probable septic left shoulder, we presume sterile culture secondary to patient being on intravenous antibiotic at the time of the aspiration. I had a long discussion about this, concern that he will have permanent disability or develop untreatable sepsis if this is not treated. We discussed the risks. I suspect that he has Enterococcus faecalis in his shoulder from hematogenous spread. 2. Anemia. Lab work is pending. 3. Diastolic heart failure. Seems compensated on examination. 4. Chronic kidney disease. Lab work is pending. 5. Atrial fibrillation. His Eliquis is on hold since 01/07, it was on hold initially for colonoscopy and then for his pending orthopedic surgical procedure. If he continues to refuse, we should restart the Eliquis this weekend. Dr. Lang will be rounding this weekend.
[2019-01-14] MEDS: POTASSIUM CHLORIDE 10 MEQ SR TABLET PO SCH (09:00)
--- NOTE | 2019-01-14 09:09 | IPN ---
DATE: 01/13/2019 Mr. Cruz is in a good mood this afternoon. He states that his shoulder effusion has decreased after the aspiration with less pain. Fluid from left shoulder had 60,000 white cells, 95% PMNs, 4% monocytes, glucose 19, total protein 4.3, hazy in appearance with +4 mucin clot. White count 5.5, hemoglobin 9, hematocrit 29, platelets 343, 69% neutrophils, 18% lymphocytes, 10% monocytes. ESR has increased to 106. Sodium 135, potassium 4.9, chloride 101, bicarb 30, BUN 17, creatinine 1.24, glucose 120, calcium 8.1, bilirubin 0.4, AST 12, ALT 11, alk phos 61, CRP down from 25.6 but has remained around 11 over the past 72 hours. Blood cultures from 12/28 were positive for E. Faecalis. Blood culture from 12/31 and 01/01 were negative. Gram stain from the left shoulder has many white cells, no organisms seen on culture. Aerobic and anaerobic are pending. On physical exam temperature is 98.2, pulse 87, respirations 19, blood pressure 135/63, O2 sat 95% on 2 liters nasal cannula. Heart: Normal S1-S2 irregular, 2/6 ejection murmur unchanged. Lungs: Diffuse expiratory rhonchi bilaterally, improve with cough. No wheezing. Few rales at the bases. Abdomen: Soft, nontender. No hepatosplenomegaly. Extremities: No clubbing, cyanosis or edema. Left shoulder effusion has markedly decreased. He has very limited range of motion to the left shoulder with an active abduction of less than 10 degrees. Neurologic exam normal. IMPRESSION: 1. Septic arthritis of the left shoulder, cultures are pending but suspect would be Enterococcus faecalis and the culture will probably remain negative as the patient has been on broad-spectrum antibiotics for over 2 weeks. Joint analysis is suggestive of an infected joint and therefore the patient needs to be taken to the operating room for incision and drainage, and debridement of the joint. 2. E. Faecalis bacteremia with a negative transesophageal echocardiogram. Tagged red blood cell only suggestive of infection in the left shoulder, mostly suggestive of infection of the left shoulder. Patient doing well with IV ampicillin. Ceftriaxone was discontinued. The patient is currently day 14 of IV antibiotic. The patient will need a PICC line and home IV antibiotics for 4 weeks. 3. History of C. difficile with no recurrent diarrhea except for the day of colonoscopy. Doing well with vancomycin preemptively. Will decrease the dose to once a day and taper him off over the next couple weeks. PLAN: Continue IV ampicillin for 4 weeks. Decrease the dose of vancomycin to daily for 1 week and then every other day for 1 week and then every third day for a couple weeks. Monitor for diarrhea and recurrent C. difficile on antibiotics.
[2019-01-14] MEDS: ACETAMINOPHEN TAB 650MG DOSE (2X325MG) PO PRN ×2 (09:43→17:32)
[2019-01-14] MEDS: SODIUM CHLORIDE 0.9% INJ 10 ML SYR IV PRN ×2 (11:19→23:06)
[2019-01-14] MEDS: FINASTERIDE 5 MG TAB PO SCH (12:14)
[2019-01-14] MEDS: FENOFIBRATE 145 MG TAB (TRICOR) PO SCH (12:14)
[2019-01-14] MEDS: LISINOPRIL 10 MG TAB PO SCH ×2 (12:19→20:18)
[2019-01-14] MEDS: BISOPROLOL FUMARATE 5 MG TAB PO SCH (12:20)
[2019-01-14 14:00] VITALS: BP 116/53
--- NOTE | 2019-01-14 15:30 | IPN ---
DATE: 01/14/2019 Mr. Cruz refused to have shoulder surgery today in the morning when primary care came back to discuss it with him and his step-brother. He agreed to have it done on Thursday. He remains afebrile. He has mild shortness of breath. He complains of pain in his sacral area. Would like a salve to put on it to help with pain. He is afebrile. Temperature is 97.7, pulse 86, respirations 16, blood pressure 140/55, O2 sat 96% on 2 liters nasal cannula. Heart: Normal S1, S2. Systolic ejection murmur 2/6, unchanged. Lungs: Exterior wheezes bilaterally with few crackles at the bases. Abdomen: Soft, nontender. No hepatosplenomegaly. Extremities: Trace edema left shoulder. Swelling has recurred today compared to yesterday. It is soft, very limited range of motion of the shoulder. IMPRESSION: 1. Septic arthritis of the left shoulder based on a fluid analysis with 60,830 white cells and predominately neutrophils. Culture negative due to the fact that he has received IV antibiotics for 15 days. 2. E faecalis bacteremia with negative transesophageal echocardiogram, on IV ampicillin. 3. History of C difficile colitis with no evidence of recurrence. The patient is being tapered off vancomycin. He is currently on 250 mg by mouth (p.o.) daily for 1 week then every other day for 1 week. Continue with probiotics. PLAN As far as IV antibiotics are concerned, he will be treated for a minimum of 4 weeks with IV ampicillin. Hopefully, the patient will pursue surgery on Thursday as he has agreed to. LABORATORY DATA 01/14: White count 5.2, hemoglobin 8.9, hematocrit 30, 28.9, platelets 350. Sodium 136, potassium 5.5, chloride 101, bicarb 31, BUN 24, creatinine 1.57, glucose was 72, calcium 8.2, AST 13, ALT 12, alkaline phosphatase 71, CRP 11, albumin 1.9.
[2019-01-14] MEDS: ACETAMINOPHEN 500 MG TAB PO SCH (20:18)
[2019-01-14] MEDS: TAMSULOSIN 0.4 MG CAP PO SCH (20:18)
[2019-01-14] MEDS: ROSUVASTATIN 10 MG TAB (CRESTOR) PO SCH (20:18)
[2019-01-14] MEDS: LATANOPROST 0.005% OPHTH SOLN 2.5 ML OU SCH (20:19)
[2019-01-14] MEDS: ALPRAZolam 0.25 MG TAB PO PRN (20:49)
[2019-01-14 22:00] VITALS: BP 118/58
[2019-01-15] VITALS (8 sets, daily range): BP systolic 108–140; BP diastolic 59–69
[2019-01-15] MEDS: IPRATROPIUM 0.5MG/ALBUTEROL 2.5MG INH SOL UD 3ML (DUONEB)(J7620) NEB SCH ×4 (01:39→20:54)
[2019-01-15] MEDS: AMPICILLIN SOD 2 GM in D5W MINI-BAG PLUS 100 ML IV SCH ×7 (02:00→21:37)
[2019-01-15] MEDS: SODIUM CHLORIDE 0.9% INJ 10 ML SYR IV PRN (03:07)
[2019-01-15] MEDS: ONDANSETRON 4 MG TAB (S0181) PO SCH ×3 (05:42→17:26)
[2019-01-15] MEDS: SODIUM CHLORIDE 0.9% INJ 10 ML SYR IV SCH ×2 (05:43→17:29)
[2019-01-15 06:53] LABS: BASO % 0.5 % (0.0-1.0); EOS % 0.7 % (0.0-3.0); HEMATOCRIT 29.2 % (42.0-52.0); HEMOGLOBIN 8.9 g/dl (13.5-17.5); LYMPH # 0.7 10^3/uL (1.5-4.5); MEAN CORPUSCULAR HEMOGLOBIN 28.1 pg (27.0-33.0); MEAN CORPUSCULAR HGB CONC 30.5 g/dl (32.0-36.5); MEAN CORPUSCULAR VOLUME 92.1 fl (80.0-96.0); MONO # 0.6 10^3/uL (0.0-0.8); MONO % 9.9 % (0.0-5.0); NEUTROPHILS # 4.1 10^3/uL (1.8-7.7); NEUTROPHILS % 73.9 % (36.0-66.0); PLATELET COUNT, AUTOMATED 334 10^3/uL (150-450); RED BLOOD COUNT 3.17 10^6/uL (4.30-6.10); WHITE BLOOD COUNT 5.5 10^3/uL (4.0-10.0)
[2019-01-15 07:18] LABS: ALBUMIN 1.9 GM/DL (3.2-5.2); ALT/SGPT 9 U/L (12-78); BILIRUBIN,TOTAL 0.4 MG/DL (0.2-1.0); BLOOD UREA NITROGEN 27 MG/DL (7-18); CALCIUM LEVEL 7.9 MG/DL (8.8-10.2); CARBON DIOXIDE LEVEL 28 MEQ/L (21-32); CHLORIDE LEVEL 102 MEQ/L (98-107); GLOMERULAR FILTRATION RATE > 60.0 (>42); GLUCOSE, FASTING 215 MG/DL (70-100); POTASSIUM SERUM 4.8 MEQ/L (3.5-5.1); SODIUM LEVEL 137 MEQ/L (136-145); TOTAL PROTEIN 6.4 GM/DL (6.4-8.2)
[2019-01-15] MEDS ORDERED: EPINEPHrine 1MG/ML INJ 30ML MD-VIAL As Ordered ONE (08:05)
--- NOTE | 2019-01-15 08:18 | IPN ---
DATE OF VISIT: 01/15/2019 CHIEF COMPLAINT: Left shoulder swelling. HISTORY OF PRESENT ILLNESS: This is a 73-year-old man with recurrent enterococcus faecalis bacteremia we had decided to go ahead with irrigation debridement of his left shoulder with arthroscopic examination. He was refusing this yesterday morning but apparently he had changed mind and now wants this now. I saw this morning. He is doing well. No concerns or complaints from him. PHYSICAL EXAMINATION: Vital signs: Temperature 96.1. Blood pressure 140/60. Pulse rate 75. Respiratory rate 22. 98% on 2 liters nasal prongs. He is alert and times three. Left shoulder still moderately swollen with an obvious subdeltoid effusion. No redness or warmth noted today. ASSESSMENT AND PLAN: This is a 73-year-old man, we will go ahead with the irrigation and debridement left shoulder for attempted source control for his recurrent bacteremias. We will perform this morning. He has been nothing by mouth overnight. I talked about pros, cons, risks and benefits of going ahead with surgery in the form irrigation debridement with arthroscopic washout and examination. He signed the consent form for this as well as for potential need for blood products.
[2019-01-15] MEDS ORDERED: fentaNYL 250 MCG/5 ML INJECTION (J3010) As Ordered ONE (09:01)
[2019-01-15] MEDS ORDERED: SEVOFLURANE INHAL SOLN 250 ML BTL As Ordered ONE (09:01)
[2019-01-15] MEDS ORDERED: dexameTHASONE 4 MG/ML 1ML VIAL (J1100) As Ordered ONE (09:01)
[2019-01-15] MEDS ORDERED: KETOROLAC 60 MG/2 ML VIAL (J1885) As Ordered ONE (09:01)
[2019-01-15] MEDS ORDERED: NEOSTIGMINE 10 MG/10 ML VIAL (J2710) As Ordered ONE (09:01)
[2019-01-15] MEDS ORDERED: ROCURONIUM BROMIDE 50 MG/5 ML VIAL As Ordered ONE ×2 (09:01→09:30)
[2019-01-15] MEDS ORDERED: MIDAZOLAM INJ 2 MG/2 ML VIAL (J2250) As Ordered ONE (09:01)
[2019-01-15] MEDS ORDERED: LIDOCAINE 2% INJ 100 MG/5 ML SDV (FOR ANES.) As Ordered ONE (09:01)
[2019-01-15] MEDS ORDERED: ONDANSETRON 4MG/2ML VIAL (J2405) As Ordered ONE (09:01)
[2019-01-15] MEDS ORDERED: METOCLOPRAMIDE INJ 10MG/2ML VIAL (J2765) As Ordered ONE (09:01)
[2019-01-15] MEDS ORDERED: ETOMIDATE INJ 20MG/10ML VIAL As Ordered ONE (09:01)
[2019-01-15] MEDS ORDERED: GLYCOPYRROLATE INJ 0.2 MG/ML 2 ML VIAL As Ordered ONE (09:01)
[2019-01-15] MEDS ORDERED: PROPOFOL 200 MG/20 ML VIAL As Ordered ONE (09:01)
[2019-01-15] MEDS ORDERED: PHENYLephrine HCL 500 MCG/5 ML (100MCG/ML) SYRINGE (J2370) As Ordered ONE ×2 (09:10→09:15)
[2019-01-15] MEDS ORDERED: SUGAMMADEX SODIUM 500 MG/5 ML VIAL (BRIDION) As Ordered ONE (10:06)
[2019-01-15] MEDS ORDERED: HumaLOG INSULIN (NovoLOG) PER UNIT As Ordered ONE (10:13)
[2019-01-15] MEDS ORDERED: HYDROMORPHONE HCL 0.5 MG/ 0.5 ML SYRINGE (J1170 PER 1) IV PRN (10:15)
[2019-01-15] MEDS ORDERED: PERCOCET 5MG/325MG TAB PO PRN (10:15)
[2019-01-15] MEDS ORDERED: fentaNYL 100 MCG/2 ML INJECTION (J3010) IV PRN (10:15)
[2019-01-15] MEDS ORDERED: ONDANSETRON 4MG/2ML VIAL (J2405) IV PRN (10:15)
[2019-01-15] MEDS: HumaLOG INSULIN (NovoLOG) PER UNIT SC SCH ×4 (10:15→20:59)
[2019-01-15] MEDS ORDERED: PERCOCET 5MG/325MG TAB As Ordered ONE (10:25)
[2019-01-15] MEDS ORDERED: LR 1,000 ML IV SCH (10:30)
[2019-01-15] MEDS ORDERED: HYDROMORPHONE HCL 0.5 MG/ 0.5 ML SYRINGE (J1170 PER 1) As Ordered ONE (10:37)
[2019-01-15 10:40] LABS: SOURCE, BODY FLUID LT SHOULDER; SYNOVIAL FLUID COLOR ORANGE (YELLOW)
[2019-01-15 10:43] LABS: CRYSTALS, BODY FLUID NONE SEEN (NONE SEEN); SOURCE, BODY FLUID CRYSTALS LT SHOULDER
[2019-01-15 11:00] LABS: SOURCE, BODY FLUID GLUCOSE LT SHOULDER
--- NOTE | 2019-01-15 11:11 | RO ---
DATE OF PROCEDURE: 01/15/2019 PREOPERATIVE DIAGNOSIS: Left shoulder effusion. POSTOPERATIVE DIAGNOSIS: Left shoulder effusion. PLANNED PROCEDURE: Left shoulder arthroscopic irrigation and debridement. PROCEDURE PERFORMED: Left shoulder arthroscopic irrigation and debridement, plus preoperative left shoulder aspiration. SURGEON: Dr. Sylvester Farrar BOX COVERER HAND: ANESTHESIA: General anesthesia. INSTRUMENTATION AND CONTROLS TECHNICIAN: Dr. Apodaca OPERATIVE PREAMBLE: This is a 73-year-old man who has had episodes of recurrent bacteremia. We decided that it would be the best course of action to go ahead with arthroscopic irrigation and debridement of his left shoulder in an attempt at source control as his ANURAG was negative for cardiac vegetations. The shoulder was a potential culprit. I talked to him about the pros, cons, risks, and benefits of going forward and talked to him about specific surgical risks including, but not limited to infection, neurovascular injury, stiffness, pain, bleeding, need for further surgery, anesthetic complications and . He wished to go ahead and he signed the consent form and I marked the left shoulder. OPERATIVE REPORT: The patient was brought to the operating theater and administered general anesthetic. He was placed in the beach chair position with the spider arm positioned to the left. They were set up in a 45 degrees angle. The arm was prepped and draped in the usual sterile fashion. A preoperative timeout was performed to ensure the correct patient and site. I used an 18 gauge spinal needle and large 50 mL syringe to aspirate approximately 25 mL of pink tinged serous fluid from the left shoulder. This appeared to be in the subdeltoid recess/space. I sent this for aerobic and anaerobic cultures as well as cell counts and complete body fluid analysis. I then made a small incision in the posterior lateral aspect of the shoulder in the usual working portal position. I made this with an 11 blade. I then inserted the scope into the intra-articular aspect of the shoulder. This was immediately communicating with the subacromial space as he was entirely rotator cuff deficient. There was only a small stump left on the lateral humerus at the typical cuff insertion which I debrided away. 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 The labrum appeared frayed, but intact. The biceps was also not present. The rotator cuff tear appeared to be at least to the level of the glenoid if not even medial to that. I debrided all the soft tissue fragments away. I performed irrigation and debridement. I debrided the anterior and posterior of the shoulder. I then established a lateral portal and finished the debridement. I worked through anterosuperior portals as well as lateral portals. I established these both inside out using a spinal needle and 11 blade. I used a 4.0 mm slightly curved tip shaver. Pump pressure was from 40 to 50 mmHg during the case and we used Ringer's lactate with epinephrine in the bag. After the irrigation was completed, there were no obvious signs of grossly purulent material, however, there was the 25 mL that I had aspirated at the start of the case that appeared to be pinkish yellow fluid. No foul-smelling discharge. I closed the three portal sites with dyed #3-0 Monocryl in subcuticular fashion. We used Steri-Strips over top of the small incisions. I had taken pictures throughout the case telephone claims representative of the intra-articular portion of the surgery. I then cleaned the skin with wet and dry dressing, followed by application of 4x8 gauze, ABD dressings and cloth tape. The patient was put into a sling. He was awoken up from the general anesthetic, transferred off the operating table and taken to the postanesthetic care unit in stable condition. All sponge, needle and instrument counts were correct. Estimated blood loss 10 mL or less. The patient tolerated the procedure well. We will discontinue the sling when he is comfortable. We will follow up the aspirate for fluid analysis and he will remain on antibiotics per the infectious disease specialist, Dr. Rudolph, and remain under the hospitalist for further medical management.
--- NOTE | 2019-01-15 12:19 | IPNPDOC ---
Subjective Date Seen The patient was seen on 01/15/19. Subjective Chief Complaint/HPI Patient had shoulder cleaned out today in OR. Is sleepy on return. Notes improvement in shoulder pain. Constitutional: Denies: Chills, Fever Cardiovascular: Denies: Chest Pain Objective Physical Examination General Exam: Positive: Alert, No Acute Distress ENT Exam: Positive: Mucous membr. moist/pink Neck Exam: Positive: Supple; Negative: JVD Chest Exam: Positive: Rales, Rhonchi (scattered throughout, slight improvement with cough); Negative: Wheezing Heart Exam: Positive: Rate Normal, Irregular Rhythm, Murmurs Abdomen Exam: Positive: Normal bowel sounds, Soft; Negative: Tenderness, Hepatospenomegaly, Mass Extremity Exam: Positive: Tenderness (Left shouldar), Swelling ( Left shouldar swelling, no erythema. ); Negative: Edema Skin Exam: Positive: Nl turgor and temperature; Negative: Rash Psych Exam: Positive: Mental status NL (alert and oriented x 3), Mood NL (irritable) Assessment /Plan Assessment Consider restarting his anticoagulation. Problems (1) Enterococcus faecalis infection Status: Acute Response to Treatment: Stable Discussed With: Nurse, Stem Sizer, Patient Problem Specific Plan: Monitor Clinically Problem Text: 01/15 Continue abx per ID. Left Shoulder cleaned out today. 01/13 Colonoscopy fragments of Tubular adenoma found. Left shouldar culture pending. Fluid shows high amount of WBCs, polymorphonuclear. Spoke with reyna Fleming. He agreed to wash out joint if culture returns positive. Initial gram stain shows no organisms. If negative consider calling vascular to evaluate stents. 01/11 Dr. Grant cleared patient. Plan is to have colonoscopy done this afternoon. Martha continue to be on hold. IR will perform shoulder US drain tomorrow. May need to evaluate patient's grafts for possible source. 01/[address] Grant and her will do cardiology clearance later. Martha already on hold, has been since 01/07. Colonoscopy scheduled for tomorrow. 01/09: at some point definite answer will be needed regarding whether the heart valves are colonized. Dr. Ugalde will be doing colonoscopy to evaluate for possible colonic source for bactermia once chief wharfinger provide "clearance". 01/08: concentrated at left shoulder. no significant uptake at vascular grafts 01/07/19: Tagged WBC scan results pending. Afebrile. WBC 6.4. D9 Ampicillin and C eftriaxone. Patient also on po Vancomycin. Colonoscopy pending cardiology clearance and patient's ability to hold Eliquis for [address] Schwartz this morning. He will come see patient today for clearance. I spoke with Dr. Ugalde and he will place order for prep to start on Thursday with plan for colonoscopy on Thursday. Patient will continue liquid diet. 01/06/19: Tagged WBC scan is scheduled for today. Abx are on hold until scan is complete. Patient remains afebrile. WBC 5.2. BC from 01/01 remain negative after 5 days. 01/05/18: Dr.. Zarate spoke with Dr. Rosas yesterday. WBC tagged scan was recommended. This will be performed tomorrow. Nuclear Medicine recommended patient be off abx for 24 hours prior to scan. Patient stable, WBC 6.5, afebrile, 12/31 BC negative x 5 days, BC 01/01 negative x 72 hours. We will hold abx tonight and resume them tomorrow. GI consult order placed. Call to Dr. Ugalde placed. He was in clinic and will return call once available. 01/04 Dr Zarate to speak with Dr Rosas today regarding risk of infection at graft site, I spoke with pt regarding consideration of colonoscopy, he has had this done with Dr Gaines in the past and is agreeable for repeat if necessary. 01/03 ANURAG without obvious vegetation although thickening of the valves was not ed. He has had 2 Neg BC and therefore an order for PICC has been placed. 05/02 colonoscopy with Eder with mtp sessile polpys + tubular adenomas, rec repeat scope in 6 months, pt has declined. 08/31 LLE endarterectomy with Bovine tissue - Ralph 02/28 RLE fem endarterectomy, R fem/pop bypass with porpraten graft - Ralph address with attending how to proceed regarding identifying source, it is also important to note that Dr Grant doesn't feel endocarditis can be completely excluded d/t thickening of the valves 12/[address] Rudolph yesterday who called concerned regarding the pts prelim BC results, she was consulted for adjustment and recommendations regarding abx. Cardio has been consulted, Dr Grant has seen the patient. He plans to ANURAG probably later today. 12/31- DROP FORGER HELPER- Both blood cx are positive for G+ bacteria. Last admission he had an E. faecalis bacteremia. It is VERY likely that the bacteria in his blood this time is the same. The fact that her has a persistent bacteremia leads to concerns for either a large and persistent colonic lesion ( e.g dysplastic estefany yp, or an endocarditis). Dr. Rudolph was consulted and has adjusted his abx while we clarify what is going on. (2) Anemia Status: Acute Response to Treatment: Worse Discussed With: Nurse, Stem Sizer, Patient Problem Specific Plan: Monitor Clinically, Repeat Labs Problem Text: 01/15 Stable. Item Value Date Time Hemoglobin 8.9 g/dl L 01/15/19 0625 Hematocrit 29.2 % L 01/15/19 0625 01/13 Colonoscopy did not show source of bleeding. Hemoglobin stable. Item Value Date Time Hemoglobin 9.0 g/dl L 01/13/19 0536 Hematocrit 29.0 % L 01/13/19 0536 01/11 Hgb stable. 01/10: Continue to monitor hemoglobin. Goal is hgb 9. Repeat CBC AM. Item Value Date Time Hemoglobin 9.3 g/dl L 01/10/19 0440 01/09: Hgb 9.1 01/08: hgb improved to 9.2 01/07/19: Hgb 8.0. We will arrange for transfusion 1 unit of PRBC with Lasix 40 after. We will continue to monitor 01/06/19: Hgb 8.3 this morning, continues to trend down. We will need to continue to monitor this closely and transfuse if indicated. GI was consulted yesterday. Recommendations as follows: - Monitor H/ H and transfuse if needed to keep hemoglobin around 9gm/ dL. Minimize the phlebotomies - As patient is having suspected endocarditis and still having shortness of breath, will consider optimization of cardiac status and clearance by cardiology if patient can be safely be off Apixaban for atleast 3 days prior to Colonoscopy procedure. Urgent Colonoscopy if overt active GI bleeding - Clear liquid diet tomorrow pending above - Will schedule for Colonoscopy based on the above 01/05/19: Hgb 8.6 this morning. We will continue to monitor. GI consulted. Patient has been on Eliquis. 01/04 Hgb stable overnight, cont to monitor. 01/03 Hgb slowing trending down s/p 2 units, monitor closely, OB has not been collected. 01/01 2 units of pRBCs ordered, Lasix to be given between each unit. f/u labs ordered, stool OB, Fe, ferritin, B12 folate (3) Diastolic CHF, chronic Status: Acute Response to Treatment: Stable Discussed With: Nurse, Stem Sizer, Patient Problem Text: 01/13 Patient has rales on exam. Extra dose of lasix today. Monitor vitals. Repeat BMP in AM. 01/08: no edema, lungs ess clear 01/07/19:Appears well compensated on exam today 01/06/19: Appears compensated on exam today. Peripheral edema has improved. Patient with a negative -[phone] from I's & O's. Renal function remains stable 01/05/19: Appears compensated today 01/03 Lasix 40 mg daily, appears compensated 12/31 [facility] [place] - Dr Grant has been consulted. Lasix IV 40 mg q12h, I remain unconvinced that his I & Os are accurate, listing 600 in yesterday and 1200 out. Cont to monitor, Scr increased to 1.5 today, baseline is 1.6-1.7, he will be getting 2 units of blood today and an order for Lasix 20 mg between each unit was placed. 12/30 Lasx IV q12h, I + Os appear to be inaccurate, spoke to nursing, slight bump in Scr, monitor, anticipate changing to HD Lasix tomorrow, 40 mg daily. Enc BARRON diet. 12/29/18: Started on Lasix 40mg IV q 12 hours with a net negative of 2L, 1800 cc fluid restriction Chest Xray Impression: Probable interstitial infiltrates. (4) Hypokalemia Status: Resolved Response to Treatment: Improving Problem Text: 01/10 Normal range today. Continue to monitor. 12/30 K + 3.8, cont with daily replacement while on IV lasix. 12/29/18: K+ 3.2. Replaced with K+ 40 meq x 1 today, repeat K+ level this afternoon. We will start K+ 40meq po q day and monitor (5) Left shoulder pain Status: Chronic Response to Treatment: Stable Problem Specific Plan: Consult Specialist (Appreciate detailed and thoughtful note from Dr. Farrar. Seems less likely acutely infected and more likely chronic inflammatory problem.) Problem Text: 01/15 Cleaned out in OR today. Monitor. 01/11 IR consulted. Will have drain placed tomorrow and fluid analyzed. Spoke with ID who agree with plan. Swelling noted. Ortho was consulted. Monitoring for now. Do not think septic joint. Chronic swelling. Monitor CRPs and ESRs. (6) Joint effusion of upper extremity Problem Text: 01/15 Cleaned out in OR today. Monitor. 01/13 Fluid shows high WBC. Culture pending. Spoke with Ortho. Monitor for now. If culture positive consider wash out in OR. Dr. Farrar healthcare administration intern this weekend. Item Value Date Time Mean Corpuscular Volume 90.6 fl 01/13/19 0536 Body Fluid Source LT SHOULDER 01/10/19 1804 Body Fluid WBC (Auto) 63102 /uL H 01/10/19 1804 Body Fluid Mononuclear Cells % Auto 4.3 % H 01/10/19 1804 Fluid Polymorphonuclear Cell % Auto 95.7 % H 01/10/19 1804 Body Fluid Crystals NONE SEEN 01/10/19 1804 Body Fluid Glucose 19 MG/DL 01/10/19 1804 Synovial Fluid Mucin Clot 4+ 01/10/19 1804 Synovial Fluid Color RED 01/10/19 1804 Synovial Fluid Appearance HAZY 01/10/19 1804 Body Fluid Total Protein 4.3 G/DL 01/10/19 1804 Body Fluid RBC (Auto) 7 10^3/uL 01/10/19 1804 IR will drain tomorrow. Evaluating for possible septic joint. Fluid analysis ordered. May influence abx treatment. (7) CKD (chronic kidney disease), stage III Status: Chronic Response to Treatment: Stable Problem Text: 01/13 Repeat in AM. Stable. 01/08: stable, creatinine now in normal range. 01/06/19: Remains stable : Stable. We will continue to monitor BUN/Cre 29/1.32, GFR 56 12/31 Scr 1.5, baseline 1.6, monitor. 12/30 Baseline Scr 1.6, today 1.35, cont with IV Lasix, monitor. 12/29/18: baseline Cre~1.6-1.7, GFR ~36-45. Today Cre 1.18, GFR >60, this is most likely d/t his dilutional status. We will monitor (8) Chest wall pain Status: Resolved Response to Treatment: Improving Discussed With: Nurse, Patient Problem Specific Plan: Repeat Tests Problem Text: 12/30 I did NOT palpate crepitations today or last week in office, Xray Neg for fractures. 12/29 He was complaining of chest pain. On examination he has tenderness on palpation over the R chest wall with increased "buoyancy" of the ribs and mild crepitations noted. He reports that Sharon Larson, R-PAC told him he had some rib fractures after a fall last week, but I don't see any radiographic documentation of this. I will order a right rib series for further evaluation. (9) Atrial fibrillation Status: Chronic Response to Treatment: Stable Problem Text: 01/08: stable, waiting for opinion from Dr. Schwartz as noted. 01/07/19: Rate controlled. Patient is on Eliquis. This will need to be held for colonoscopy. Dr. Schwartz will be in today to provide clearance for procedure 12/29/18: Rate controlled on Bisoprolol 5mg daily. Currently on Eliquis 5 mg po bid (10) DM2 (diabetes mellitus, type 2) Status: Chronic Response to Treatment: Stable Problem Text: 12/29/18: Managed with Lantus 22 units q hs and Humalog sliding scale outpatient. He is currently being covered with mealtime insulin only. He is not NPO, but his fasting BGs have been 78, 99 and he has only required 2 units of coverage. We will monitor and make adjustments in regimen accordingly. (11) Diarrhea Status: Resolved Problem Text: 01/13 on prophylactic PO vancomycin per ID 01/12 On oral vancomycin since the . 12/30 No recurrence of loose stools since admission. 12/29/18: Patient with hx of c-diff at his previously hospitalization about approx one month ago. GI panel pending. Plan/VTE VTE Prophylaxis Ordered?: Yes Plan Therapy: PT Anticipated Discharge: Sub Acute Rehab (Rec STR at d/c.) VS, I&O, 24H, Fishbone Vital Signs/I&O Vital Signs Date Time Temp Pulse Resp B/P (MAP) Pulse Ox O2 Delivery O2 Flow Rate FiO2 01/15/19 10:45 97.2 77 16 117/69 (85) 96 2 01/11/19 08:41 Nasal Cannula I&O- Last 24 Hours up to 6 AM 01/15/19 06:00 Intake Total 2050 ml Output Total 1325 ml Balance 725 ml Laboratory Data 24H LABS Laboratory Tests 2 01/14/19 17:34: Bedside Glucose (Misc Panel) 303H 01/14/19 20:54: Bedside Glucose (Misc Panel) 312H 01/15/19 06:25: Immature Granulocyte % (Auto) 2.0, White Blood Count 5.5, Red Blood Count 3.17L, Hemoglobin 8.9L, Hematocrit 29.2L, Mean Corpuscular Volume 92.1, Mean Corpuscular Hemoglobin 28.1, Mean Corpuscular Hemoglobin Concent 30.5L, Red Cell Distribution Width 16.1H, Platelet Count 334, Neutrophils (%) (Auto) 73.9H, Lymphocytes (%) (Auto) 13.0L, Monocytes (%) (Auto) 9.9H, Eosinophils (%) (Auto) 0.7, Basophils (%) (Auto) 0.5, Neutrophils # (Auto) 4.1, Lymphocytes # (Auto) 0.7L, Monocytes # (Auto) 0.6, Eosinophils # (Auto) 0.0, Basophils # (Auto) 0.0, Nucleated Red Blood Cells % (auto) 0.0, Anion Gap 7L, Glomerular Filtration Rate > 60.0, Blood Urea Nitrogen 27H, Creatinine 1.20, Sodium Level 137, Potassium Level 4.8, Chloride Level 102, Carbon Dioxide Level 28, Calcium Level 7.9L, Aspartate Amino Transf (AST/SGOT) 14, Alanine Aminotransferase (ALT/SGPT) 9L, Alkaline Phosphatase 61, Total Bilirubin 0.4, Total Protein 6.4, Albumin 1.9L, Albumin/Globulin Ratio 0.42L 01/15/19 10:00: Body Fluid WBC (Auto) 07020A, Body Fluid RBC (Auto) 44, Body Fluid Mononuclear Cells % Auto 4.3H, Fluid Polymorphonuclear Cell % Auto 95.7H, Body Fluid Crystals NONE SEEN, Body Fluid Crystal Source LT SHOULDER, Body Fluid Glucose Source LT SHOULDER, Body Fluid Glucose 51, Synovial Fluid Source LT SHOULDER, Synovial Fluid Color ORANGE, Synovial Fluid Appearance CLOUDY 01/15/19 10:08: Bedside Glucose (Misc Panel) 226H 01/15/19 11:37: Bedside Glucose (Misc Panel) 225H CBC/BMP Laboratory Tests 01/15/19 06:25 Red Blood Count 3.17 L, Mean Corpuscular Volume 92.1, Mean Corpuscular Hemoglobin 28.1, Mean Corpuscular Hemoglobin Concent 30.5 L, Red Cell Distribution Width 16.1 H, Neutrophils (%) (Auto) 73.9 H, Lymphocytes (%) (Auto) 13.0 L, Monocytes (%) (Auto) 9.9 H, Eosinophils (%) (Auto) 0.7, Basophils (%) (Auto) 0.5, Neutrophils # (Auto) 4.1, Lymphocytes # (Auto) 0.7 L, Monocytes # (Auto) 0.6, Eosinophils # (Auto) 0.0, Basophils # (Auto) 0.0, Calcium Level 7.9 L, Aspartate Amino Transf (AST/SGOT) 14, Alanine Aminotransferase (ALT/SGPT) 9 L, Alkaline Phosphatase 61, Total Bilirubin 0.4, Total Protein 6.4, Albumin 1.9 L Microbiology Microbiology 01/12/19 Anaerobic Culture - Final, Complete 01/15/19 Gram Stain, Received Pending 01/15/19 Wound Culture, Received Pending 01/15/19 Anaerobic Culture, Received Pending 01/12/19 Gram Stain - Final, Complete 01/12/19 Abscess Culture - Final, Complete GME ATTESTATION GME ATTESTATION My faculty preceptor for this patient encounter was physically present during the encounter and was fully available. All aspects of the patient interview, examination, medical decision making process, and medical care plan development were reviewed and approved by the faculty preceptor. The faculty preceptor is aware and concurs with the plan as stated in the body of this note and will attest to such by his/her cosignature. LAWANDA JOVEL DO Jan 15, 2019 12:19
[2019-01-15 12:34] LABS: BODY FLUID RHEUMATOID SCREEN NEGATIVE (NEGATIVE)
[2019-01-15 12:35] LABS: MUCIN CLOT TEST 4+ (4+)
[2019-01-15] MEDS: OMEGA-3 1000MG CAPSULE PO SCH ×2 (12:35→20:24)
[2019-01-15] MEDS: SERTRALINE HCL 50 MG TAB PO SCH (12:35)
[2019-01-15] MEDS: ASPIRIN 81 MG ENTERIC TAB PO SCH (12:36)
[2019-01-15] MEDS: FERROUS SULFATE 325MG TAB PO SCH (12:36)
[2019-01-15] MEDS: POTASSIUM CHLORIDE 10 MEQ SR TABLET PO SCH (12:36)
[2019-01-15] MEDS: FUROSEMIDE 40 MG TAB PO SCH (12:36)
[2019-01-15] MEDS: OMEPRAZOLE 20 MG CAP PO SCH (12:36)
[2019-01-15] MEDS: LACTOBACILLUS ACIDOPHILUS CAP (BACID) PO SCH ×2 (12:37→20:24)
[2019-01-15] MEDS: VANCOMYCIN ORAL SOL 250MG/5ML ORAL SYRINGE PO SCH (12:37)
[2019-01-15] MEDS: FINASTERIDE 5 MG TAB PO SCH (12:45)
[2019-01-15] MEDS: ALPRAZolam 0.25 MG TAB PO PRN ×2 (12:45→20:59)
[2019-01-15] MEDS: BISOPROLOL FUMARATE 5 MG TAB PO SCH (12:49)
[2019-01-15] MEDS: FENOFIBRATE 145 MG TAB (TRICOR) PO SCH (12:49)
[2019-01-15] MEDS: LISINOPRIL 10 MG TAB PO SCH ×2 (12:49→20:24)
[2019-01-15 14:10] LABS: SOURCE, BODY FLUID URIC ACID LT SHOULDER; URIC ACID, BODY FLUID 5.7 MG/DL (NOT ESTABLISHED)
[2019-01-15] MEDS: ACETAMINOPHEN TAB 650MG DOSE (2X325MG) PO PRN (17:58)
[2019-01-15] MEDS: TAMSULOSIN 0.4 MG CAP PO SCH (20:24)
[2019-01-15] MEDS: ROSUVASTATIN 10 MG TAB (CRESTOR) PO SCH (20:24)
[2019-01-15] MEDS: ACETAMINOPHEN 500 MG TAB PO SCH (20:25)
[2019-01-15] MEDS: LATANOPROST 0.005% OPHTH SOLN 2.5 ML OU SCH ×2 (21:00→21:37)
[2019-01-16] VITALS: BP 110/60
[2019-01-16] MEDS: ONDANSETRON 4 MG TAB (S0181) PO SCH ×6 (00:23→23:19)
[2019-01-16] MEDS: IPRATROPIUM 0.5MG/ALBUTEROL 2.5MG INH SOL UD 3ML (DUONEB)(J7620) NEB SCH ×4 (01:35→19:28)
[2019-01-16] MEDS: AMPICILLIN SOD 2 GM in D5W MINI-BAG PLUS 100 ML IV SCH ×6 (01:53→22:24)
[2019-01-16] MEDS: ACETAMINOPHEN TAB 650MG DOSE (2X325MG) PO PRN ×3 (04:45→15:37)
[2019-01-16] MEDS: SODIUM CHLORIDE 0.9% INJ 10 ML SYR IV SCH ×2 (05:42→18:55)
[2019-01-16 06:00] VITALS: BP 130/58
[2019-01-16 07:00] LABS: BASO % 0.3 % (0.0-1.0); EOS % 0.5 % (0.0-3.0); HEMATOCRIT 25.8 % (42.0-52.0); HEMOGLOBIN 7.9 g/dl (13.5-17.5); LYMPH # 0.9 10^3/uL (1.5-4.5); LYMPH % 13.9 % (24.0-44.0); MEAN CORPUSCULAR HEMOGLOBIN 27.9 pg (27.0-33.0); MEAN CORPUSCULAR HGB CONC 30.6 g/dl (32.0-36.5); MEAN CORPUSCULAR VOLUME 91.2 fl (80.0-96.0); MONO # 0.6 10^3/uL (0.0-0.8); MONO % 9.7 % (0.0-5.0); NEUTROPHILS # 4.9 10^3/uL (1.8-7.7); NEUTROPHILS % 74.2 % (36.0-66.0); PLATELET COUNT, AUTOMATED 308 10^3/uL (150-450); RED BLOOD COUNT 2.83 10^6/uL (4.30-6.10); WHITE BLOOD COUNT 6.6 10^3/uL (4.0-10.0)
[2019-01-16 07:38] LABS: ALBUMIN 1.8 GM/DL (3.2-5.2); BILIRUBIN,TOTAL 0.2 MG/DL (0.2-1.0); CALCIUM LEVEL 7.8 MG/DL (8.8-10.2); CREATININE FOR GFR 1.61 MG/DL (0.70-1.30); GLOMERULAR FILTRATION RATE 44.8 (>42); POTASSIUM SERUM 4.6 MEQ/L (3.5-5.1)
[2019-01-16] MEDS: VANCOMYCIN ORAL SOL 250MG/5ML ORAL SYRINGE PO SCH (08:45)
[2019-01-16] MEDS: OMEPRAZOLE 20 MG CAP PO SCH (08:45)
[2019-01-16] MEDS: LACTOBACILLUS ACIDOPHILUS CAP (BACID) PO SCH ×2 (08:45→20:35)
[2019-01-16] MEDS: POTASSIUM CHLORIDE 10 MEQ SR TABLET PO SCH (08:46)
[2019-01-16] MEDS: SERTRALINE HCL 50 MG TAB PO SCH (08:46)
[2019-01-16] MEDS: FERROUS SULFATE 325MG TAB PO SCH (08:46)
[2019-01-16] MEDS: OMEGA-3 1000MG CAPSULE PO SCH ×2 (08:46→20:35)
[2019-01-16] MEDS: ASPIRIN 81 MG ENTERIC TAB PO SCH (08:46)
[2019-01-16] MEDS: HumaLOG INSULIN (NovoLOG) PER UNIT SC SCH ×4 (08:47→21:00)
[2019-01-16] MEDS: FUROSEMIDE 40 MG TAB PO SCH (08:47)
[2019-01-16 11:00] VITALS: BP 118/56
[2019-01-16] MEDS: LISINOPRIL 10 MG TAB PO SCH ×2 (12:00→20:37)
[2019-01-16] MEDS: FENOFIBRATE 145 MG TAB (TRICOR) PO SCH (12:20)
[2019-01-16] MEDS: FINASTERIDE 5 MG TAB PO SCH (12:21)
[2019-01-16] MEDS: BISOPROLOL FUMARATE 5 MG TAB PO SCH (12:22)
--- NOTE | 2019-01-16 13:07 | IPNPDOC ---
Subjective Date Seen The patient was seen on 01/16/19. Subjective Chief Complaint/HPI mild L shoulder pain, dyspnea at baseline Constitutional: Denies: Chills Eyes: Reports: Pain ENT: Denies: Head Aches Skin: Denies: Rash Pulmonary: Denies: Dyspnea, Cough Cardiovascular: Denies: Chest Pain Gastrointestinal: Denies: Nausea, Vomiting Objective Physical Examination General Exam: Positive: Alert, No Acute Distress ENT Exam: Positive: Mucous membr. moist/pink Neck Exam: Positive: Supple; Negative: JVD Chest Exam: Positive: Rales, Rhonchi (scattered throughout, slight improvement with cough); Negative: Wheezing Heart Exam: Positive: Rate Normal, Irregular Rhythm, Murmurs Abdomen Exam: Positive: Normal bowel sounds, Soft; Negative: Tenderness, Hepatospenomegaly, Mass Extremity Exam: Positive: Tenderness (Left shouldar), Swelling ( Left shouldar swelling, no erythema. ); Negative: Edema Skin Exam: Positive: Nl turgor and temperature; Negative: Rash Psych Exam: Positive: Mental status NL (alert and oriented x 3), Mood NL (irritable) Assessment /Plan Problems (1) CKD (chronic kidney disease), stage III Status: Chronic Response to Treatment: Stable Problem Text: 01/16 1.6 (1.2)-favor 2 anemia +/- hypotension c 01/15 procedure-lisin/fur held, tx 1u baseline cr 1.3-1.4 (2) Enterococcus faecalis infection Status: Chronic Response to Treatment: Improving Problem Text: D107/13+ amp 2 q4H IV favor bowel source (probably graft) seeded to L shoulder 01/16 remains AF, stable WBC 01/15/19 sp : Left shoulder arthroscopic irrigation and debridement, plus preoperative left shoulder aspiration-Charan 01/13/19 Colonoscopy tubular adenoma-no obvious infectious source 01/03 ANURAG without obvious vegetation although thickening of the valves was noted. 01/15/19 shoulder CX P 12/31, 01/01/19 BCX NG 05/02 colonoscopy with Eder with mtp sessile polpys + tubular adenomas, rec repeat scope in 6 months, pt has declined. 08/31 LLE endarterectomy with Bovine tissue - Ralph 02/28 RLE fem endarterectomy, R fem/pop bypass with porpraten graft - Ralph (3) Diastolic CHF, chronic Status: Acute Response to Treatment: Stable Discussed With: Nurse, Nutritional Chemist, Patient Problem Text: 01/13 Patient has rales on exam. Extra dose of lasix today. Monitor vitals. Repeat BMP in AM. 01/08: no edema, lungs ess clear 01/07/19:Appears well compensated on exam today 01/06/19: Appears compensated on exam today. Peripheral edema has improved. Patient with a negative -1285 from I's & O's. Renal function remains stable 01/05/19: Appears compensated today 01/03 Lasix 40 mg daily, appears compensated 12/31 [facility] [place] - Dr Grant has been consulted. Lasix IV 40 mg q12h, I remain unconvinced that his I & Os are accurate, listing 600 in yesterday and 1200 out. Cont to monitor, Scr increased to 1.5 today, baseline is 1.6-1.7, he will be getting 2 units of blood today and an order for Lasix 20 mg between each unit was placed. 12/30 Lasx IV q12h, I + Os appear to be inaccurate, spoke to nursing, slight bump in Scr, monitor, anticipate changing to HD Lasix tomorrow, 40 mg daily. Enc BARRON diet. 12/29/18: Started on Lasix 40mg IV q 12 hours with a net negative of 2L, 1800 cc fluid restriction Chest Xray Impression: Probable interstitial infiltrates. (4) Atrial fibrillation Status: Chronic Response to Treatment: Stable Problem Text: 01/08: stable, waiting for opinion from Dr. Schwartz as noted. 01/07/19: Rate controlled. Patient is on Eliquis. This will need to be held for colonoscopy. Dr. Schwartz will be in today to provide clearance for procedure 12/29/18: Rate controlled on Bisoprolol 5mg daily. Currently on Eliquis 5 mg po bid (5) DM2 (diabetes mellitus, type 2) Status: Chronic Response to Treatment: Stable Problem Text: 12/29/18: Managed with Lantus 22 units q hs and Humalog sliding scale outpatient. He is currently being covered with mealtime insulin only. He is not NPO, but his fasting BGs have been 78, 99 and he has only required 2 units of coverage. We will monitor and make adjustments in regimen accordingly. (6) C. difficile colitis Status: Resolved Problem Text: remains on vanco 250 QD/probiotic px no evidence of recurrence Plan/VTE VTE Prophylaxis Ordered?: Yes Plan Therapy: PT Anticipated Discharge: Sub Acute Rehab (Rec STR at d/c.) VS, I&O, 24H, Fishbone Vital Signs/I&O Vital Signs Date Time Temp Pulse Resp B/P (MAP) Pulse Ox O2 Delivery O2 Flow Rate FiO2 01/16/19 12:22 84 118/56 01/16/19 11:00 97.4 20 96 2.0 01/11/19 08:41 Nasal Cannula I&O- Last 24 Hours up to 6 AM 01/16/19 06:00 Intake Total 1250 ml Output Total 1060 ml Balance 190 ml Laboratory Data 24H LABS Laboratory Tests 2 01/15/19 16:28: Bedside Glucose (Misc Panel) 282H 01/15/19 20:57: Bedside Glucose (Misc Panel) 225H 01/16/19 06:45: Immature Granulocyte % (Auto) 1.4, White Blood Count 6.6, Red Blood Count 2.83L, Hemoglobin 7.9L, Hematocrit 25.8L, Mean Corpuscular Volume 91.2, Mean Corpuscular Hemoglobin 27.9, Mean Corpuscular Hemoglobin Concent 30.6L, Red Cell Distribution Width 16.1H, Platelet Count 308, Neutrophils (%) (Auto) 74.2H, Lymphocytes (%) (Auto) 13.9L, Monocytes (%) (Auto) 9.7H, Eosinophils (%) (Auto) 0.5, Basophils (%) (Auto) 0.3, Neutrophils # (Auto) 4.9, Lymphocytes # (Auto) 0.9L, Monocytes # (Auto) 0.6, Eosinophils # (Auto) 0.0, Basophils # (Auto) 0.0, Nucleated Red Blood Cells % (auto) 0.0, Anion Gap 6L, Glomerular Filtration Rate 44.8, Blood Urea Nitrogen 41#H, Creatinine 1.61H, Sodium Level 137, Potassium Level 4.6, Chloride Level 100, Carbon Dioxide Level 31, Calcium Level 7.8L, Aspartate Amino Transf (AST/SGOT) 12, Alanine Aminotransferase (ALT/SGPT) 11L, Alkaline Phosphatase 62, Total Bilirubin 0.2, Total Protein 6.0L, Albumin 1.8L, Albumin/Globulin Ratio 0.43L 01/16/19 11:46: Bedside Glucose (Misc Panel) 311H CBC/BMP Laboratory Tests 01/16/19 06:45 Red Blood Count 2.83 L, Mean Corpuscular Volume 91.2, Mean Corpuscular Hemoglobin 27.9, Mean Corpuscular Hemoglobin Concent 30.6 L, Red Cell Distribution Width 16.1 H, Neutrophils (%) (Auto) 74.2 H, Lymphocytes (%) (Auto) 13.9 L, Monocytes (%) (Auto) 9.7 H, Eosinophils (%) (Auto) 0.5, Basophils (%) (Auto) 0.3, Neutrophils # (Auto) 4.9, Lymphocytes # (Auto) 0.9 L, Monocytes # (Auto) 0.6, Eosinophils # (Auto) 0.0, Basophils # (Auto) 0.0, Calcium Level 7.8 L, Aspartate Amino Transf (AST/SGOT) 12, Alanine Aminotransferase (ALT/SGPT) 11 L, Alkaline Phosphatase 62, Total Bilirubin 0.2, Total Protein 6.0 L, Albumin 1.8 L Microbiology Microbiology 01/12/19 Anaerobic Culture - Final, Complete 01/15/19 Gram Stain - Final, Resulted 01/15/19 Wound Culture, Resulted Pending 01/15/19 Anaerobic Culture, Resulted Pending 01/12/19 Gram Stain - Final, Complete 01/12/19 Abscess Culture - Final, Complete Cheo Lang M.D. Jan 16, 2019 13:07
[2019-01-16] MEDS ORDERED: NS 1,000 ML IV SCH (13:09)
[2019-01-16 14:00] VITALS: BP 121/59
[2019-01-16] MEDS: ROSUVASTATIN 10 MG TAB (CRESTOR) PO SCH (20:35)
[2019-01-16] MEDS: TAMSULOSIN 0.4 MG CAP PO SCH (20:35)
[2019-01-16] MEDS: ACETAMINOPHEN 500 MG TAB PO SCH (20:37)
[2019-01-16] MEDS: LATANOPROST 0.005% OPHTH SOLN 2.5 ML OU SCH (20:38)
[2019-01-16] MEDS: ALPRAZolam 0.25 MG TAB PO PRN (20:59)
[2019-01-16 22:00] VITALS: BP 128/50
[2019-01-17] MEDS ORDERED: traMADol 50 MG TAB PO ONE (01:00)
[2019-01-17] MEDS ORDERED: METOCLOPRAMIDE INJ 10MG/2ML VIAL (J2765) IV ONE (01:00)
[2019-01-17] MEDS: IPRATROPIUM 0.5MG/ALBUTEROL 2.5MG INH SOL UD 3ML (DUONEB)(J7620) NEB SCH ×4 (01:55→20:38)
[2019-01-17] MEDS: AMPICILLIN SOD 2 GM in D5W MINI-BAG PLUS 100 ML IV SCH ×6 (01:55→22:03)
[2019-01-17 06:00] VITALS: BP 130/60
[2019-01-17] MEDS: SODIUM CHLORIDE 0.9% INJ 10 ML SYR IV SCH ×2 (06:00→18:05)
[2019-01-17] MEDS: ONDANSETRON 4 MG TAB (S0181) PO SCH ×4 (06:11→23:25)
[2019-01-17 06:12] LABS: BASO % 0.5 % (0.0-1.0); EOS % 0.1 % (0.0-3.0); HEMATOCRIT 31.2 % (42.0-52.0); HEMOGLOBIN 9.8 g/dl (13.5-17.5); LYMPH # 0.3 10^3/uL (1.5-4.5); LYMPH % 4.3 % (24.0-44.0); MEAN CORPUSCULAR HEMOGLOBIN 28.6 pg (27.0-33.0); MEAN CORPUSCULAR HGB CONC 31.4 g/dl (32.0-36.5); MONO # 0.5 10^3/uL (0.0-0.8); MONO % 6.5 % (0.0-5.0); NEUTROPHILS # 6.5 10^3/uL (1.8-7.7); NEUTROPHILS % 87.1 % (36.0-66.0); PLATELET COUNT, AUTOMATED 368 10^3/uL (150-450); RED BLOOD COUNT 3.43 10^6/uL (4.30-6.10); WHITE BLOOD COUNT 7.5 10^3/uL (4.0-10.0)
[2019-01-17 06:35] LABS: ALBUMIN 1.9 GM/DL (3.2-5.2); BILIRUBIN,TOTAL 0.4 MG/DL (0.2-1.0); C REACTIVE PROTEIN QUANTITATIV 5.47 MG/DL (0.00-0.30); CALCIUM LEVEL 7.4 MG/DL (8.8-10.2); CREATININE FOR GFR 1.47 MG/DL (0.70-1.30); GLOMERULAR FILTRATION RATE 49.7 (>42); POTASSIUM SERUM 4.9 MEQ/L (3.5-5.1); TOTAL PROTEIN 6.6 GM/DL (6.4-8.2)
[2019-01-17 06:38] LABS: ERYTHROCYTE SEDIMENTATION RATE 70 mm/hr (0-20)
[2019-01-17] MEDS: HumaLOG INSULIN (NovoLOG) PER UNIT SC SCH ×4 (08:25→21:00)
[2019-01-17] MEDS: VANCOMYCIN ORAL SOL 250MG/5ML ORAL SYRINGE PO SCH (08:25)
[2019-01-17] MEDS: ALPRAZolam 0.25 MG TAB PO PRN ×2 (08:26→18:05)
[2019-01-17] MEDS: OMEGA-3 1000MG CAPSULE PO SCH ×2 (08:26→22:01)
[2019-01-17] MEDS: LACTOBACILLUS ACIDOPHILUS CAP (BACID) PO SCH ×2 (08:26→22:01)
[2019-01-17] MEDS: SERTRALINE HCL 50 MG TAB PO SCH (08:26)
[2019-01-17] MEDS: FERROUS SULFATE 325MG TAB PO SCH (08:26)
[2019-01-17] MEDS: OMEPRAZOLE 20 MG CAP PO SCH (08:26)
[2019-01-17] MEDS: ASPIRIN 81 MG ENTERIC TAB PO SCH (08:26)
[2019-01-17] MEDS: ACETAMINOPHEN TAB 650MG DOSE (2X325MG) PO PRN ×2 (08:26→18:05)
[2019-01-17] MEDS: FUROSEMIDE 40 MG TAB PO SCH (08:27)
[2019-01-17] MEDS: POTASSIUM CHLORIDE 10 MEQ SR TABLET PO SCH (08:27)
--- NOTE | 2019-01-17 10:13 | IPNPDOC ---
Subjective Date Seen The patient was seen on 01/17/19. Subjective Chief Complaint/HPI Pt this morning reports that his L shoulder cont to be painful, about the same as it has been for months. He is awaiting the removal of the bandage. He states that overnight he began having loose stools again after having formed stools for several days. State stools are explosive, difficult to control, causing incontinence. He reports 9 overnight and this morning. Denies abd pain or cramping. General: Reports: Fatigue Constitutional: Denies: Chills, Fever ENT: Denies: Head Aches Pulmonary: Reports: Dyspnea (at baseline); Denies: Cough Cardiovascular: Denies: Chest Pain, Palpitations Gastrointestinal: Reports: Diarrhea; Denies: Nausea, Vomiting, Abdominal Pain Psych: Reports: Mood Normal Objective Physical Examination General Exam: Positive: Alert, No Acute Distress ENT Exam: Positive: Mucous membr. moist/pink Neck Exam: Positive: Supple; Negative: JVD Chest Exam: Positive: Rhonchi (scattered throughout, slight improvement with cough), Diminished; Negative: Wheezing Heart Exam: Positive: Rate Normal, Irregular Rhythm, Murmurs Abdomen Exam: Positive: Normal bowel sounds, Soft; Negative: Tenderness, Hepatospenomegaly, Mass Extremity Exam: Positive: Tenderness (Left shoulder); Negative: Edema Skin Exam: Positive: Nl turgor and temperature; Negative: Rash Psych Exam: Positive: Mental status NL (alert and oriented x 3), Mood NL (pleasant, conversant, eager for rehab.) Assessment /Plan Problems (1) Enterococcus faecalis infection Status: Chronic Response to Treatment: Improving Problem Text: D108/13+ amp 2 q4H IV favor bowel source (probably graft) seeded to L shoulder 01/17 remains AF, stable WBC 01/15/19 sp : Left shoulder arthroscopic irrigation and debridement, plus preoperative left shoulder aspiration-Charan 01/13/19 Colonoscopy tubular adenoma-no obvious infectious source 01/03 ANURAG without obvious vegetation although thickening of the valves was noted. 01/15/19 shoulder CX P 12/31, 01/01/19 BCX NG 05/02 colonoscopy with Eder with mtp sessile polpys + tubular adenomas, rec repeat scope in 6 months, pt has declined. 08/31 LLE endarterectomy with Bovine tissue - Ralph 02/28 RLE fem endarterectomy, R fem/pop bypass with porpraten graft - Ralph (2) C. difficile colitis Status: Resolved Problem Text: 01/17 Pt with recurrence of loose stools overnight. Certainly risk for recurrence of C Diff as well as gastroenteritis with Norovirus active in the community now. Will check stool specimen, address with attending. He may need to transition form Vanco to Dificid. 01/16 remains on vanco 250 QD/probiotic px no evidence of recurrence (3) CKD (chronic kidney disease), stage III Status: Chronic Response to Treatment: Stable Problem Text: 01/17 Stable at baseline. Baseline Scr 1.4-1.6. (4) Diastolic CHF, chronic Status: Acute Response to Treatment: Stable Discussed With: Nurse, Scaler, Patient Problem Text: 01/17 appears compensated 01/13 Patient has rales on exam. Extra dose of lasix today. Monitor vitals. Repeat BMP in AM. 01/08: no edema, lungs ess clear 01/07/19:Appears well compensated on exam today 01/06/19: Appears compensated on exam today. Peripheral edema has improved. Patient with a negative -1285 from I's & O's. Renal function remains stable 01/05/19: Appears compensated today 01/03 Lasix 40 mg daily, appears compensated 12/31 [facility] [place] Grant [place] been [place]. Lasix IV 40 mg q12h, I remain unconvinced that his I & Os are accurate, listing 600 in yesterday and 1200 out. Cont to monitor, Scr increased to 1.5 today, baseline is 1.6-1.7, he will be getting 2 units of blood today and an order for Lasix 20 mg between each unit was placed. 12/30 Lasx IV q12h, I + Os appear to be inaccurate, spoke to nursing, slight bump in Scr, monitor, anticipate changing to HD Lasix tomorrow, 40 mg daily. Enc BARRON diet. 12/29/18: Started on Lasix 40mg IV q 12 hours with a net negative of 2L, 1800 cc fluid restriction Chest Xray Impression: Probable interstitial infiltrates. (5) Atrial fibrillation Status: Chronic Response to Treatment: Stable Problem Text: 01/08: stable, waiting for opinion from Dr. Schwartz as noted. 01/07/19: Rate controlled. Patient is on Eliquis. This will need to be held for colonoscopy. Dr. Schwartz will be in today to provide clearance for procedure 12/29/18: Rate controlled on Bisoprolol 5mg daily. Currently on Eliquis 5 mg po bid (6) DM2 (diabetes mellitus, type 2) Status: Chronic Response to Treatment: Stable Problem Text: 12/29/18: Managed with Lantus 22 units q hs and Humalog sliding scale outpatient. He is currently being covered with mealtime insulin only. He is not NPO, but his fasting BGs have been 78, 99 and he has only required 2 units of coverage. We will monitor and make adjustments in regimen accordingly. Plan/VTE VTE Prophylaxis Ordered?: Yes Plan Therapy: PT Anticipated Discharge: Sub Acute Rehab (Rec STR at d/c.) VS, I&O, 24H, Fishbone Vital Signs/I&O Vital Signs Date Time Temp Pulse Resp B/P (MAP) Pulse Ox O2 Delivery O2 Flow Rate FiO2 01/17/19 06:00 96.9 98 20 130/60 (83) 94 2.0 01/11/19 08:41 Nasal Cannula I&O- Last 24 Hours up to 6 AM 01/17/19 06:00 Intake Total 1731 ml Output Total 1325 ml Balance 406 ml Laboratory Data 24H LABS Laboratory Tests 2 01/16/19 11:46: Bedside Glucose (Misc Panel) 311H 01/16/19 16:38: Bedside Glucose (Misc Panel) 276H 01/16/19 20:50: Bedside Glucose (Misc Panel) 239H 01/17/19 05:45: Immature Granulocyte % (Auto) 1.5, White Blood Count 7.5, Red Blood Count 3.43L, Hemoglobin 9.8L, Hematocrit 31.2L, Mean Corpuscular Volume 91.0, Mean Corpuscular Hemoglobin 28.6, Mean Corpuscular Hemoglobin Concent 31.4L, Red Cell Distribution Width 17.0H, Platelet Count 368, Neutrophils (%) (Auto) 87.1H, Lymphocytes (%) (Auto) 4.3L, Monocytes (%) (Auto) 6.5H, Eosinophils (%) (Auto) 0.1, Basophils (%) (Auto) 0.5, Neutrophils # (Auto) 6.5, Lymphocytes # (Auto) 0.3L, Monocytes # (Auto) 0.5, Eosinophils # (Auto) 0.0, Basophils # (Auto) 0.0, Nucleated Red Blood Cells % (auto) 0.0, Erythrocyte Sedimentation Rate 70H, Anion Gap 7L, Glomerular Filtration Rate 49.7, Blood Urea Nitrogen 41H, C reatinine 1.47H, Sodium Level 137, Potassium Level 4.9, Chloride Level 103, Carbon Dioxide Level 27, Calcium Level 7.4L, Aspartate Amino Transf (AST/SGOT) 15, Alanine Aminotransferase (ALT/SGPT) 12, Alkaline Phosphatase 60, Total Bilirubin 0.4#, Total Protein 6.6, Albumin 1.9L, C-Reactive Protein, Q uantitative 5.47H, Albumin/Globulin Ratio 0.40L CBC/BMP Laboratory Tests 01/17/19 05:45 Red Blood Count 3.43 L, Mean Corpuscular Volume 91.0, Mean Corpuscular Hemoglobin 28.6, Mean Corpuscular Hemoglobin Concent 31.4 L, Red Cell Distribution Width 17.0 H, Neutrophils (%) (Auto) 87.1 H, Lymphocytes (%) (Auto) 4.3 L, Monocytes (%) (Auto) 6.5 H, Eosinophils (%) (Auto) 0.1, Basophils (%) (Auto) 0.5, Neutrophils # (Auto) 6.5, Lymphocytes # (Auto) 0.3 L, Monocytes # (Auto) 0.5, Eosinophils # (Auto) 0.0, Basophils # (Auto) 0.0, Calcium Level 7.4 L, Aspartate Amino Transf (AST/SGOT) 15, Alanine Aminotransferase (ALT/SGPT) 12, Alkaline Phosphatase 60, Total Bilirubin 0.4 #, Total Protein 6.6, Albumin 1.9 L Microbiology Microbiology 01/12/19 Anaerobic Culture - Final, Complete 01/15/19 Gram Stain - Final, Complete 01/15/19 Wound Culture - Final, Complete 01/15/19 Anaerobic Culture - Final, Complete 01/12/19 Gram Stain - Final, Complete 01/12/19 Abscess Culture - Final, Complete Attending Note Attending Note AGREE WITH FINDINGS AND PLAN DOCUMENTED BY Jhon GILBERT. ZOEY GILBERT PA-C Jan 17, 2019 10:13 Mark Tripp MD Jan 18, 2019 07:46
[2019-01-17] MEDS: FENOFIBRATE 145 MG TAB (TRICOR) PO SCH (12:01)
[2019-01-17] MEDS: FINASTERIDE 5 MG TAB PO SCH (12:02)
[2019-01-17] MEDS: BISOPROLOL FUMARATE 5 MG TAB PO SCH (12:02)
[2019-01-17] MEDS: LISINOPRIL 10 MG TAB PO SCH ×2 (12:02→22:02)
[2019-01-17 14:00] VITALS: BP 140/68
[2019-01-17 22:00] VITALS: BP 142/70
[2019-01-17] MEDS: TAMSULOSIN 0.4 MG CAP PO SCH (22:01)
[2019-01-17] MEDS: ROSUVASTATIN 10 MG TAB (CRESTOR) PO SCH (22:01)
[2019-01-17] MEDS: LATANOPROST 0.005% OPHTH SOLN 2.5 ML OU SCH (22:03)
[2019-01-17] MEDS: ACETAMINOPHEN 500 MG TAB PO SCH (22:03)
[2019-01-18] MEDS: ALPRAZolam 0.25 MG TAB PO PRN ×2 (01:19→21:56)
[2019-01-18] MEDS: AMPICILLIN SOD 2 GM in D5W MINI-BAG PLUS 100 ML IV SCH ×6 (01:23→21:57)
[2019-01-18] MEDS: IPRATROPIUM 0.5MG/ALBUTEROL 2.5MG INH SOL UD 3ML (DUONEB)(J7620) NEB SCH ×4 (01:42→20:00)
[2019-01-18 05:35] LABS: BASO % 0.4 % (0.0-1.0); EOS % 0.5 % (0.0-3.0); HEMATOCRIT 28.9 % (42.0-52.0); HEMOGLOBIN 8.9 g/dl (13.5-17.5); LYMPH # 0.6 10^3/uL (1.5-4.5); MEAN CORPUSCULAR HEMOGLOBIN 28.1 pg (27.0-33.0); MEAN CORPUSCULAR HGB CONC 30.8 g/dl (32.0-36.5); MEAN CORPUSCULAR VOLUME 91.2 fl (80.0-96.0); MONO # 0.5 10^3/uL (0.0-0.8); MONO % 8.5 % (0.0-5.0); NEUTROPHILS # 4.4 10^3/uL (1.8-7.7); NEUTROPHILS % 78.8 % (36.0-66.0); PLATELET COUNT, AUTOMATED 293 10^3/uL (150-450); RED BLOOD COUNT 3.17 10^6/uL (4.30-6.10); WHITE BLOOD COUNT 5.6 10^3/uL (4.0-10.0)
[2019-01-18 06:00] VITALS: BP 108/54
[2019-01-18] MEDS: ONDANSETRON 4 MG TAB (S0181) PO SCH ×4 (06:03→23:57)
[2019-01-18] MEDS: SODIUM CHLORIDE 0.9% INJ 10 ML SYR IV SCH ×2 (06:04→18:00)
[2019-01-18 06:05] LABS: ALBUMIN 1.8 GM/DL (3.2-5.2); BILIRUBIN,TOTAL 0.5 MG/DL (0.2-1.0); C REACTIVE PROTEIN QUANTITATIV 8.63 MG/DL (0.00-0.30); CREATININE FOR GFR 1.4 MG/DL (0.70-1.30); GLOMERULAR FILTRATION RATE 52.6 (>42); POTASSIUM SERUM 4.3 MEQ/L (3.5-5.1); TOTAL PROTEIN 5.9 GM/DL (6.4-8.2)
[2019-01-18 06:06] LABS: ERYTHROCYTE SEDIMENTATION RATE 65 mm/hr (0-20)
--- NOTE | 2019-01-18 08:13 | IPN ---
DATE: 01/17/2019 Mr. Cruz was seen this afternoon. He was slightly confused, complaining of some shortness of breath and some vague chest pain. He has had no fever or chills. He had surgery on 01/15/2019 with left shoulder arthroscopic irrigation and debridement and aspiration of the left shoulder, 25 mL of pinkish serous fluid was aspirated and sent for culture. The cultures from 01/15/2019 were aerobic and anaerobic negative as well as the ones from 01/12/2019. The patient also had some nausea earlier this morning and felt like he needed to vomit. LABORATORY DATA: White count of 7.5, hemoglobin 9.8, hematocrit 31.2, platelets 368. ESR is down to 70. Sodium 137, potassium 4.9, chloride 103, bicarb 27, BUN 41, creatinine 1.47, glucose 300, calcium 7.4, CRP down to 5.47 from 11, AST 15, ALT 12. PHYSICAL EXAMINATION: Temperature is 97.1, pulse 89, respirations 24, blood pressure 140/68, O2 sat 90% on 2 liters nasal cannula. Heart: Normal S1 and S2, irregular. Systolic ejection murmur 2/6, unchanged. Lungs: Few expiratory rhonchi. No wheezes noted. No rales appreciated anteriorly. Abdomen is soft, nontender. No hepatosplenomegaly. Extremities: No edema. Left shoulder has a bulky dressing. Mental Status: The patient is delirious, screaming and agitated. IMPRESSION: 1. E. faecalis bacteremia. On IV ampicillin. ESR and CRP improving. The patient will need 4 weeks of IV antibiotics. 2. Septic arthritis of the left shoulder. Culture is negative because both cultures were done after 14 days of antibiotics. At this point, the patient had incision and drainage and irrigation. 3. Shortness of breath due to chronic obstructive pulmonary disease (COPD). The patient had vague nonspecific chest pain and that was relayed to the primary care team. PLAN: Continue IV ampicillin for 4 weeks from negative culture, end of IV antibiotic therapy will be on January 27.
[2019-01-18] MEDS: LACTOBACILLUS ACIDOPHILUS CAP (BACID) PO SCH ×2 (09:28→21:56)
[2019-01-18] MEDS: FERROUS SULFATE 325MG TAB PO SCH (09:29)
[2019-01-18] MEDS: FUROSEMIDE 40 MG TAB PO SCH (09:29)
[2019-01-18] MEDS: VANCOMYCIN ORAL SOL 250MG/5ML ORAL SYRINGE PO SCH ×2 (09:29→21:55)
[2019-01-18] MEDS: OMEGA-3 1000MG CAPSULE PO SCH ×2 (09:29→21:56)
[2019-01-18] MEDS: POTASSIUM CHLORIDE 10 MEQ SR TABLET PO SCH (09:29)
[2019-01-18] MEDS: ASPIRIN 81 MG ENTERIC TAB PO SCH (09:29)
[2019-01-18] MEDS: OMEPRAZOLE 20 MG CAP PO SCH (09:29)
[2019-01-18] MEDS: SERTRALINE HCL 50 MG TAB PO SCH (09:29)
[2019-01-18] MEDS: HumaLOG INSULIN (NovoLOG) PER UNIT SC SCH ×5 (09:30→21:00)
--- NOTE | 2019-01-18 11:08 | IPNPDOC ---
Subjective Date Seen The patient was seen on 01/18/19. Subjective Chief Complaint/HPI Patient apparently was yelling all morning, but is sleeping soundly now. woke briefly to answer some questions. Reports some pain in left shoulder. Denies SOB. Constitutional: Denies: Chills, Fever Pulmonary: Denies: Dyspnea, Cough Cardiovascular: Denies: Chest Pain, Palpitations Gastrointestinal: Denies: Nausea, Vomiting, Abdominal Pain, Diarrhea, Const ipation Objective Physical Examination General Exam: Positive: Alert, No Acute Distress Neck Exam: Positive: Supple, JVD Chest Exam: Positive: Clear to auscultation, Diminished; Negative: Rhonchi, Wheezing Heart Exam: Positive: Rate Normal, Irregular Rhythm, Murmurs Abdomen Exam: Positive: Normal bowel sounds, Soft; Negative: Tenderness, Hepatospenomegaly, Mass Extremity Exam: Positive: Tenderness (Left shoulder - bandages C/D/I); Negative: Edema Assessment /Plan Problems (1) Enterococcus faecalis infection Status: Chronic Response to Treatment: Improving Problem Text: 01/18 - ID following Recommend 4 weeks IV abx - Ampicillin D#18 favor bowel source (possibly graft) seeded to L shoulder 01/15 Left shoulder arthroscopic irrigation and debridement, plus preoperative left shoulder aspiration-Charan - cultures negative but already on abx so sterile culture. 01/13/19 Colonoscopy tubular adenoma-no obvious infectious source 01/03 ANURAG without obvious vegetation although thickening of the valves was noted. (Subacute bacterial endocarditis (SBE) prophylaxis is not recommended. Even though the thickening of the aortic valve could potentially represent signs) of infection, no definite vegetations are seen. 01/15/19 shoulder CX P 12/31, 01/01/19 BCX NG 05/02 colonoscopy with Eder with mtp sessile polpys + tubular adenomas, rec repeat scope in 6 months, pt has declined. 08/31 LLE endarterectomy with Bovine tissue - Ralph 02/28 RLE fem endarterectomy, R fem/pop bypass with porpraten graft - Ralph (2) C. difficile colitis Status: Resolved Problem Text: 01/18 - On tapering dose of oral Vanco 3/ Pt with recurrence of loose stools overnight. Certainly risk for recurrence of C Diff as well as gastroenteritis with Norovirus active in the community now. Will check stool specimen, address with attending. He may need to transition form Vanco to Dificid. 01/16 remains on vanco 250 QD/probiotic px no evidence of recurrence (3) CKD (chronic kidney disease), stage III Status: Chronic Response to Treatment: Stable Problem Text: 01/17 Stable at baseline. Baseline Scr 1.4-1.6. (4) Diastolic CHF, chronic Status: Acute Response to Treatment: Stable Discussed With: Nurse, Director Electronics, Patient Problem Text: 01/17 appears compensated 01/13 Patient has rales on exam. Extra dose of lasix today. Monitor vitals. Repeat BMP in AM. 01/08: no edema, lungs ess clear 01/07/19:Appears well compensated on exam today 01/06/19: Appears compensated on exam today. Peripheral edema has improved. Patient with a negative -1285 from I's & O's. Renal function remains stable 01/05/19: Appears compensated today 01/03 Lasix 40 mg daily, appears compensated 12/31 [facility] [place] been [place]. Lasix IV 40 mg q12h, I remain unconvinced that his I & Os are accurate, listing 600 in yesterday and 1200 out. Cont to monitor, Scr increased to 1.5 today, baseline is 1.6-1.7, he will be getting 2 units of blood today and an order for Lasix 20 mg between each unit was placed. 12/30 Lasx IV q12h, I + Os appear to be inaccurate, spoke to nursing, slight bump in Scr, monitor, anticipate changing to HD Lasix tomorrow, 40 mg daily. Enc BARRON diet. 12/29/18: Started on Lasix 40mg IV q 12 hours with a net negative of 2L, 1800 cc fluid restriction Chest Xray Impression: Probable interstitial infiltrates. (5) Atrial fibrillation Status: Chronic Response to Treatment: Stable Problem Text: 01/08: stable, waiting for opinion from Dr. Schwartz as noted. 01/07/19: Rate controlled. Patient is on Eliquis. This will need to be held for colonoscopy. Dr. Schwartz will be in today to provide clearance for procedure 12/29/18: Rate controlled on Bisoprolol 5mg daily. Currently on Eliquis 5 mg po bid (6) DM2 (diabetes mellitus, type 2) Status: Chronic Response to Treatment: Stable Problem Text: 12/29/18: Managed with Lantus 22 units q hs and Humalog sliding scale outpatient. He is currently being covered with mealtime insulin only. He is not NPO, but his fasting BGs have been 78, 99 and he has only required 2 units of coverage. We will monitor and make adjustments in regimen accordingly. Plan/VTE VTE Prophylaxis Ordered?: Yes Plan Therapy: PT Anticipated Discharge: Sub Acute Rehab (Rec STR at d/c.) VS, I&O, 24H, Fishbone Vital Signs/I&O Vital Signs Date Time Temp Pulse Resp B/P (MAP) Pulse Ox O2 Delivery O2 Flow Rate FiO2 01/18/19 06:00 96.4 80 20 108/54 (72) 95 2.0 01/17/19 20:38 Nasal Cannula I&O- Last 24 Hours up to 6 AM 01/18/19 06:00 Intake Total 1780 ml Output Total 375 ml Balance 1405 ml Laboratory Data 24H LABS Laboratory Tests 2 01/17/19 11:18: Bedside Glucose (Misc Panel) 166H 01/17/19 16:50: Bedside Glucose (Misc Panel) 198H 01/17/19 21:54: Bedside Glucose (Misc Panel) 153H 01/18/19 05:18: Immature Granulocyte % (Auto) 1.8, White Blood Count 5.6, Red Blood Count 3.17L, Hemoglobin 8.9L, Hematocrit 28.9L, Mean Corpuscular Volume 91.2, Mean Corpuscular Hemoglobin 28.1, Mean Corpuscular Hemoglobin Concent 30.8L, Red Cell Distribution Width 16.8H, Platelet Count 293, Neutrophils (%) (Auto) 78.8H, Lymphocytes (%) (Auto) 10.0L, Monocytes (%) (Auto) 8.5H, Eosinophils (%) (Auto) 0.5, Basophils (%) (Auto) 0.4, Neutrophils # (Auto) 4.4, Lymphocytes # (Auto) 0.6L, Monocytes # (Auto) 0.5, Eosinophils # (Auto) 0.0, Basophils # (Auto) 0.0, Nucleated Red Blood Cells % (auto) 0.0, Erythrocyte Sedimentation Rate 65H, Anion Gap 7L, Glomerular Filtration Rate 52.6, Blood Urea Nitrogen 37H, Creatinine 1.40H, Sodium Level 137, Potassium Level 4.3, Chloride Level 104, Carbon Dioxide Level 26, Calcium Level 7.0L, Aspartate Amino Transf (AST/SGOT) 16, Alanine Aminotransferase (ALT/SGPT) 10L, Alkaline Phosphatase 54, Total Bilirubin 0.5, Total Protein 5.9L, Albumin 1.8L, C-Reactive Protein, Quantitative 8.63H, Albumin/Globulin Ratio 0.44L CBC/BMP Laboratory Tests 01/18/19 05:18 Red Blood Count 3.17 L, Mean Corpuscular Volume 91.2, Mean Corpuscular Hemoglobin 28.1, Mean Corpuscular Hemoglobin Concent 30.8 L, Red Cell Distribution Width 16.8 H, Neutrophils (%) (Auto) 78.8 H, Lymphocytes (%) (Auto) 10.0 L, Monocytes (%) (Auto) 8.5 H, Eosinophils (%) (Auto) 0.5, Basophils (%) (Auto) 0.4, Neutrophils # (Auto) 4.4, Lymphocytes # (Auto) 0.6 L, Monocytes # (Auto) 0.5, Eosinophils # (Auto) 0.0, Basophils # (Auto) 0.0, Calcium Level 7.0 L, Aspartate Amino Transf (AST/SGOT) 16, Alanine Aminotransferase (ALT/SGPT) 10 L, Alkaline Phosphatase 54, Total Bilirubin 0.5, Total Protein 5.9 L, Albumin 1.8 L Microbiology Microbiology 01/12/19 Anaerobic Culture - Final, Complete 01/15/19 Gram Stain - Final, Complete 01/15/19 Wound Culture - Final, Complete 01/15/19 Anaerobic Culture - Final, Complete 01/12/19 Gram Stain - Final, Complete 01/12/19 Abscess Culture - Final, Complete Attending Note Attending Note patient seen and examined. agree with findings and plan as documented by Sheron Palmer. RJ PALMER PA-C Jan 18, 2019 11:07 Mark Tripp MD Jan 18, 2019 12:54
[2019-01-18] MEDS: BISOPROLOL FUMARATE 5 MG TAB PO SCH (12:38)
[2019-01-18] MEDS: FINASTERIDE 5 MG TAB PO SCH (12:38)
[2019-01-18] MEDS: FENOFIBRATE 145 MG TAB (TRICOR) PO SCH (12:39)
[2019-01-18] MEDS: LISINOPRIL 10 MG TAB PO SCH ×2 (12:39→21:56)
[2019-01-18 14:00] VITALS: BP 122/89
[2019-01-18] MEDS: ACETAMINOPHEN TAB 650MG DOSE (2X325MG) PO PRN (15:39)
--- NOTE | 2019-01-18 16:54 | IPN ---
DATE: 01/18/2019 Mr. Cruz seems to be doing better this afternoon. In the morning he was described by the primary team as yelling and sleeping soundly, but this afternoon he is awake, alert, just is grumpy about me looking at his dressing that was just recently changed. He has mild pain in the left shoulder. No cough or shortness of breath. No fever, chills. No chest pain. He is excited his legs are not swollen. No nausea, vomiting, or diarrhea. He is eating well. PHYSICAL EXAMINATION: Temperature is 97.8, pulse 84, respirations 20, blood pressure 122/89, oxygen saturation 94% on room air. HEART: Normal S1, S2 with no murmurs, rubs, or gallops. ABDOMEN: Soft, nontender. No hepatosplenomegaly. EXTREMITIES: No edema. Left shoulder has a mild swelling at the surgical site. He has ecchymosis all the way down to his biceps. MEDICATIONS: Ampicillin, currently day #19. LABORATORY DATA: White count 5.6, hemoglobin 8.9, hematocrit 28.9, platelets 293, 78% neutrophils, 10% lymphocytes, 8% monocytes. Sodium 137, potassium 4.3, chloride 104, bicarbonate 26, BUN 37, creatinine 1.4, glucose 164, calcium 8. AST 16, ALT 10. IMPRESSION: 1. Septic arthritis of the left shoulder with Enterococcus faecalis bactremia. Cultures intraoperatively have remained negative. The patient on intravenous (IV) ampicillin for a total of 4 weeks. Continue to monitor complete blood count (CBC), ESR, C-reactive protein (CRP) every 2-3 days. 2. History of Clostridium (C) difficile colitis with increased diarrhea yesterday. The patient has been on prolonged intravenous (IV) antibiotic; and is at high risk of recurrent C. difficile, and therefore we will increase his dose of vancomycin back to twice a day. Patient continues on probiotics twice a day. PLAN: Continue IV ampicillin for 4 weeks from negative cultures. End of therapy will be January 27. Increase PO vancomycin to twice a day to decrease the risk of having recurrent C. difficile. [facility]
[2019-01-18] MEDS: ROSUVASTATIN 10 MG TAB (CRESTOR) PO SCH (21:56)
[2019-01-18] MEDS: TAMSULOSIN 0.4 MG CAP PO SCH (21:56)
[2019-01-18] MEDS: LATANOPROST 0.005% OPHTH SOLN 2.5 ML OU SCH (21:57)
[2019-01-18] MEDS: ACETAMINOPHEN 500 MG TAB PO SCH (21:57)
[2019-01-18 22:00] VITALS: BP 124/58
[2019-01-18] MEDS: IPRATROPIUM 0.5MG/ALBUTEROL 2.5MG INH SOL UD 3ML (DUONEB)(J7620) NEB PRN (23:57)
[2019-01-19] MEDS: AMPICILLIN SOD 2 GM in D5W MINI-BAG PLUS 100 ML IV SCH ×6 (01:23→22:00)
[2019-01-19] MEDS: IPRATROPIUM 0.5MG/ALBUTEROL 2.5MG INH SOL UD 3ML (DUONEB)(J7620) NEB SCH ×4 (02:00→20:37)
[2019-01-19] MEDS: SODIUM CHLORIDE 0.9% INJ 10 ML SYR IV SCH ×2 (05:29→18:15)
[2019-01-19] MEDS: ONDANSETRON 4 MG TAB (S0181) PO SCH ×3 (05:30→18:14)
[2019-01-19 06:00] VITALS: BP 108/58
[2019-01-19 06:44] LABS: BASO % 0.2 % (0.0-1.0); EOS # 0.1 10^3/uL (0.0-0.50); EOS % 0.9 % (0.0-3.0); HEMATOCRIT 28.1 % (42.0-52.0); HEMOGLOBIN 8.7 g/dl (13.5-17.5); LYMPH # 0.6 10^3/uL (1.5-4.5); LYMPH % 10.3 % (24.0-44.0); MEAN CORPUSCULAR VOLUME 90.4 fl (80.0-96.0); MONO # 0.7 10^3/uL (0.0-0.8); MONO % 12.1 % (0.0-5.0); NEUTROPHILS # 4.2 10^3/uL (1.8-7.7); NEUTROPHILS % 74.5 % (36.0-66.0); PLATELET COUNT, AUTOMATED 262 10^3/uL (150-450); RED BLOOD COUNT 3.11 10^6/uL (4.30-6.10); WHITE BLOOD COUNT 5.6 10^3/uL (4.0-10.0)
[2019-01-19 07:02] LABS: ERYTHROCYTE SEDIMENTATION RATE 68 mm/hr (0-20)
[2019-01-19 07:08] LABS: ALBUMIN 1.9 GM/DL (3.2-5.2); BILIRUBIN,TOTAL 0.4 MG/DL (0.2-1.0); C REACTIVE PROTEIN QUANTITATIV 8.3 MG/DL (0.00-0.30); CALCIUM LEVEL 7.5 MG/DL (8.8-10.2); CREATININE FOR GFR 1.35 MG/DL (0.70-1.30); GLOMERULAR FILTRATION RATE 54.8 (>42); POTASSIUM SERUM 4.1 MEQ/L (3.5-5.1); TOTAL PROTEIN 5.9 GM/DL (6.4-8.2)
[2019-01-19] MEDS: VANCOMYCIN ORAL SOL 250MG/5ML ORAL SYRINGE PO SCH ×2 (10:17→20:36)
[2019-01-19] MEDS: FERROUS SULFATE 325MG TAB PO SCH (10:17)
[2019-01-19] MEDS: ASPIRIN 81 MG ENTERIC TAB PO SCH (10:18)
[2019-01-19] MEDS: OMEPRAZOLE 20 MG CAP PO SCH (10:18)
[2019-01-19] MEDS: ACETAMINOPHEN TAB 650MG DOSE (2X325MG) PO PRN ×2 (10:18→16:58)
[2019-01-19] MEDS: LACTOBACILLUS ACIDOPHILUS CAP (BACID) PO SCH ×2 (10:18→20:35)
[2019-01-19] MEDS: OMEGA-3 1000MG CAPSULE PO SCH ×2 (10:19→20:35)
[2019-01-19] MEDS: POTASSIUM CHLORIDE 10 MEQ SR TABLET PO SCH (10:19)
[2019-01-19] MEDS: SERTRALINE HCL 50 MG TAB PO SCH (10:19)
[2019-01-19] MEDS: FUROSEMIDE 40 MG TAB PO SCH (10:20)
[2019-01-19] MEDS: HumaLOG INSULIN (NovoLOG) PER UNIT SC SCH ×4 (10:20→21:00)
--- NOTE | 2019-01-19 10:38 | IPNPDOC ---
Subjective Date Seen The patient was seen on 01/19/19. Subjective Chief Complaint/HPI No complains Constitutional: Denies: Chills, Fever Pulmonary: Denies: Dyspnea, Cough Cardiovascular: Denies: Chest Pain, Palpitations Gastrointestinal: Denies: Nausea, Vomiting, Abdominal Pain, Diarrhea, Constipation Objective Physical Examination General Exam: Positive: Alert, No Acute Distress Neck Exam: Positive: Supple, JVD Chest Exam: Positive: Clear to auscultation, Diminished; Negative: Rhonchi, Wheezing Heart Exam: Positive: Rate Normal, Irregular Rhythm, Murmurs Abdomen Exam: Positive: Normal bowel sounds, Soft; Negative: Tenderness, Hepatospenomegaly, Mass Extremity Exam: Positive: Tenderness (Left shoulder - bandages C/D/I); Negative: Edema Assessment /Plan Problems (1) Enterococcus faecalis infection Status: Chronic Response to Treatment: Improving Problem Text: 01/19 - ID following Recommend 4 weeks IV abx - Ampicillin D#19 (End date January 27) favor bowel source (possibly graft) seeded to L shoulder 01/15 Left shoulder arthroscopic irrigation and debridement, plus preoperative left shoulder aspiration-Mollison - cultures negative but already on abx so sterile culture. 01/13/19 Colonoscopy tubular adenoma-no obvious infectious source 01/03 ANURAG without obvious vegetation although thickening of the valves was noted. (Subacute bacterial endocarditis (SBE) prophylaxis is not recommended. Even though the thickening of the aortic valve could potentially represent signs) of infection, no definite vegetations are seen. 01/15/19 shoulder CX P 12/31, 01/01/19 BCX NG 05/02 colonoscopy with Eder with mtp sessile polpys + tubular adenomas, rec repeat scope in 6 months, pt has declined. 08/31 LLE endarterectomy with Bovine tissue - Ralph 02/28 RLE fem endarterectomy, R fem/pop bypass with porpraten graft - Ralph (2) Septic arthritis of shoulder, left Status: Acute Problem Text: See above - Per ortho. (3) C. difficile colitis Status: Resolved Problem Text: 01/18 - Vanco dose increased to BID while on abx - per ID 01/17 Pt with recurrence of loose stools overnight. Certainly risk for recurrence of C Diff as well as gastroenteritis with Norovirus active in the community now. Will check stool specimen, address with attending. He may need to transition form Vanco to Dificid. 01/16 remains on vanco 250 QD/probiotic px no evidence of recurrence (4) Anemia Status: Chronic Problem Text: stable s/P EGD/Colonscopy 01/11 - Essentially normal without bleeding source. Tubular adenomas polyps x 2 (5) CKD (chronic kidney disease), stage III Status: Chronic Response to Treatment: Stable Problem Text: 01/17 Stable at baseline. Baseline Scr 1.4-1.6. (6) Diastolic CHF, chronic Status: Acute Response to Treatment: Stable Discussed With: Nurse, Agency Cashier, Patient Problem Text: 01/17 appears compensated 01/13 Patient has rales on exam. Extra dose of lasix today. Monitor vitals. Repeat BMP in AM. 01/08: no edema, lungs ess clear 01/07/19:Appears well compensated on exam today 01/06/19: Appears compensated on exam today. Peripheral edema has improved. Patient with a negative -1285 from I's & O's. Renal function remains stable 01/05/19: Appears compensated today 01/03 Lasix 40 mg daily, appears compensated 12/31 [facility] [place] - Dr Grant has been consulted. Lasix IV 40 mg q12h, I remain unconvi nced that his I & Os are accurate, listing 600 in yesterday and 1200 out. Cont to monitor, Scr increased to 1.5 today, baseline is 1.6-1.7, he will be getting 2 units of blood today and an order for Lasix 20 mg between each unit was placed. 12/30 Lasx IV q12h, I + Os appear to be inaccurate, spoke to nursing, slight bump in Scr, monitor, anticipate changing to HD Lasix tomorrow, 40 mg daily. E nc BARRON diet. 12/29/18: Started on Lasix 40mg IV q 12 hours with a net negative of 2L, 1800 cc fluid restriction Chest Xray Impression: Probable interstitial infiltrates. (7) Atrial fibrillation Status: Chronic Response to Treatment: Stable Problem Text: 01/19/19 -Eliquis on hold since 01/07 due to acute anemia. Restart this and monitor Hgb. 01/08: stable, waiting for opinion from Dr. Schwartz as noted. 01/07/19: Rate controlled. Patient is on Eliquis. This will need to be held for colonoscopy. Dr. Efren will be in today to provide clearance for procedure 12/29/18: Rate controlled on Bisoprolol 5mg daily. Currently on Eliquis 5 mg po bid (8) DM2 (diabetes mellitus, type 2) Status: Chronic Response to Treatment: Stable Problem Text: 12/29/18: Managed with Lantus 22 units q hs and Humalog sliding scale outpatient. He is currently being covered with mealtime insulin only. He is not NPO, but his fasting BGs have been 78, 99 and he has only required 2 units of coverage. We will monitor and make adjustments in regimen accordingly. Plan/VTE VTE Prophylaxis Ordered?: Yes (Restart Eliquis 01/19) Plan Therapy: PT Anticipated Discharge: Sub Acute Rehab (Rec STR at d/c.) Disposition Cont IV abx until 01/27 then make SNF for subacute rehab VS, I&O, 24H, Fishbone Vital Signs/I&O Vital Signs Date Time Temp Pulse Resp B/P (MAP) Pulse Ox O2 Delivery O2 Flow Rate FiO2 01/19/19 06:00 98.0 68 16 108/58 (75) 99 2.0 01/17/19 20:38 Nasal Cannula I&O- Last 24 Hours up to 6 AM 01/19/19 06:00 Intake Total 1470 ml Output Total 650 ml Balance 820 ml Laboratory Data 24H LABS Laboratory Tests 2 01/18/19 11:19: Bedside Glucose (Misc Panel) 225H 01/18/19 16:43: Bedside Glucose (Misc Panel) 122H 01/18/19 20:27: Bedside Glucose (Misc Panel) 133H 01/19/19 06:32: Immature Granulocyte % (Auto) 2.0, White Blood Count 5.6, Red Blood Count 3.11L, Hemoglobin 8.7L, Hematocrit 28.1L, Mean Corpuscular Volume 90.4, Mean Corpuscular Hemoglobin 28.0, Mean Corpuscular Hemoglobin Concent 31.0L, Red Cell Distribution Width 16.6H, Platelet Count 262, Neutrophils (%) (Auto) 74.5H, Lymphocytes (%) (Auto) 10.3L, Monocytes (%) (Auto) 12.1H, Eosinophils (%) (Auto) 0.9, Basophils (%) (Auto) 0.2, Neutrophils # (Auto) 4.2, Lymphocytes # (Auto) 0.6L, Monocytes # (Auto) 0.7, Eosinophils # (Auto) 0.1, Basophils # (Auto) 0.0, Nucleated Red Blood Cells % (auto) 0.0, Erythrocyte Sedimentation Rate 68H, Anio n Gap 7L, Glomerular Filtration Rate 54.8, Blood Urea Nitrogen 29H, Creatinine 1.35H, Sodium Level 137, Potassium Level 4.1, Chloride Level 103, Carbon Dioxide Level 27, Calcium Level 7.5L, Aspartate Amino Transf (AST/SGOT) 17, Alanine Aminotransferase (ALT/SGPT) 12, Alkaline Phosphatase 54, Total Bilirubin 0.4, Total Protein 5.9L, Albumin 1.9L, C-Reactive Protein, Quantitative 8.30H, Albumin/Globulin Ratio 0.48L CBC/BMP Laboratory Tests 01/19/19 06:32 Red Blood Count 3.11 L, Mean Corpuscular Volume 90.4, Mean Corpuscular Hemoglobin 28.0, Mean Corpuscular Hemoglobin Concent 31.0 L, Red Cell Distribution Width 16.6 H, Neutrophils (%) (Auto) 74.5 H, Lymphocytes (%) (Auto) 10.3 L, Monocytes (%) (Auto) 12.1 H, Eosinophils (%) (Auto) 0.9, Basophils (%) (Auto) 0.2, Neutrophils # (Auto) 4.2, Lymphocytes # (Auto) 0.6 L, Monocytes # (Auto) 0.7, Eosinophils # (Auto) 0.1, Basophils # (Auto) 0.0, Calcium Level 7.5 L, Aspartate Amino Transf (AST/SGOT) 17, Alanine Aminotransferase (ALT/SGPT) 12, Alkaline Phosphatase 54, Total Bilirubin 0.4, Total Protein 5.9 L, Albumin 1.9 L Microbiology Microbiology 01/12/19 Anaerobic Culture - Final, Complete 01/15/19 Gram Stain - Final, Complete 01/15/19 Wound Culture - Final, Complete 01/15/19 Anaerobic Culture - Final, Complete 01/12/19 Gram Stain - Final, Complete 01/12/19 Abscess Culture - Final, Complete Attending Note Attending Note patient seen. agree with findings and plan documented by Sheron Palmer. RJ PALMER PA-C Jan 19, 2019 10:38 Mark Tripp MD Jan 19, 2019 16:20
[2019-01-19] MEDS: BISOPROLOL FUMARATE 5 MG TAB PO SCH (12:30)
[2019-01-19] MEDS: FENOFIBRATE 145 MG TAB (TRICOR) PO SCH (12:30)
[2019-01-19] MEDS: LISINOPRIL 10 MG TAB PO SCH ×2 (12:31→20:36)
[2019-01-19] MEDS: FINASTERIDE 5 MG TAB PO SCH (12:31)
[2019-01-19] MEDS: APIXABAN 5 MG TAB (ELIQUIS) PO SCH ×2 (12:34→20:36)
[2019-01-19 14:00] VITALS: BP 123/77
[2019-01-19] MEDS: ACETAMINOPHEN 500 MG TAB PO SCH (20:35)
[2019-01-19] MEDS: ROSUVASTATIN 10 MG TAB (CRESTOR) PO SCH (20:35)
[2019-01-19] MEDS: ALPRAZolam 0.25 MG TAB PO PRN (20:36)
[2019-01-19] MEDS: LATANOPROST 0.005% OPHTH SOLN 2.5 ML OU SCH (20:36)
[2019-01-19] MEDS: TAMSULOSIN 0.4 MG CAP PO SCH (20:36)
[2019-01-19 22:00] VITALS: BP 130/60
[2019-01-19] MEDS: SODIUM CHLORIDE 0.9% INJ 10 ML SYR IV PRN (22:54)
[2019-01-20] MEDS: ONDANSETRON 4 MG TAB (S0181) PO SCH ×5 (00:53→23:04)
[2019-01-20] MEDS: ACETAMINOPHEN TAB 650MG DOSE (2X325MG) PO PRN ×3 (01:01→18:03)
[2019-01-20] MEDS: IPRATROPIUM 0.5MG/ALBUTEROL 2.5MG INH SOL UD 3ML (DUONEB)(J7620) NEB SCH ×4 (01:15→21:18)
[2019-01-20] MEDS: SODIUM CHLORIDE 0.9% INJ 10 ML SYR IV PRN (01:38)
[2019-01-20] MEDS: AMPICILLIN SOD 2 GM in D5W MINI-BAG PLUS 100 ML IV SCH ×6 (01:38→21:02)
[2019-01-20] MEDS: SODIUM CHLORIDE 0.9% INJ 10 ML SYR IV SCH ×2 (05:41→18:04)
[2019-01-20 06:00] VITALS: BP 142/59
[2019-01-20 07:09] LABS: HEMATOCRIT 29.5 % (42.0-52.0); MEAN CORPUSCULAR HEMOGLOBIN 27.4 pg (27.0-33.0); MEAN CORPUSCULAR HGB CONC 30.5 g/dl (32.0-36.5); MEAN CORPUSCULAR VOLUME 89.7 fl (80.0-96.0); PLATELET COUNT, AUTOMATED 286 10^3/uL (150-450); RED BLOOD COUNT 3.29 10^6/uL (4.30-6.10); WHITE BLOOD COUNT 6.3 10^3/uL (4.0-10.0)
[2019-01-20] MEDS: ASPIRIN 81 MG ENTERIC TAB PO SCH (09:07)
[2019-01-20] MEDS: APIXABAN 5 MG TAB (ELIQUIS) PO SCH ×2 (09:07→20:54)
[2019-01-20] MEDS: OMEGA-3 1000MG CAPSULE PO SCH ×2 (09:07→21:02)
[2019-01-20] MEDS: OMEPRAZOLE 20 MG CAP PO SCH (09:07)
[2019-01-20] MEDS: FERROUS SULFATE 325MG TAB PO SCH (09:07)
[2019-01-20] MEDS: VANCOMYCIN ORAL SOL 250MG/5ML ORAL SYRINGE PO SCH ×2 (09:07→20:55)
[2019-01-20] MEDS: LACTOBACILLUS ACIDOPHILUS CAP (BACID) PO SCH ×2 (09:07→20:53)
[2019-01-20] MEDS: FUROSEMIDE 40 MG TAB PO SCH (09:07)
[2019-01-20] MEDS: SERTRALINE HCL 50 MG TAB PO SCH (09:08)
[2019-01-20] MEDS: ALPRAZolam 0.25 MG TAB PO PRN (09:08)
[2019-01-20] MEDS: POTASSIUM CHLORIDE 10 MEQ SR TABLET PO SCH (09:09)
[2019-01-20] MEDS: HumaLOG INSULIN (NovoLOG) PER UNIT SC SCH ×4 (09:09→20:57)
--- NOTE | 2019-01-20 10:01 | IPNPDOC ---
Subjective Date Seen The patient was seen on 01/20/19. Subjective Chief Complaint/HPI c/O pain and increased swelling in his right shoulder. Constitutional: Denies: Chills, Fever Pulmonary: Denies: Dyspnea, Cough Cardiovascular: Denies: Chest Pain Gastrointestinal: Denies: Nausea, Vomiting, Abdominal Pain, Diarrhea, Constipation Objective Physical Examination General Exam: Positive: Alert, No Acute Distress Neck Exam: Positive: Supple, JVD Chest Exam: Positive: Clear to auscultation, Diminished; Negative: Rhonchi, Wheezing Heart Exam: Positive: Rate Normal, Irregular Rhythm, Murmurs Abdomen Exam: Positive: Normal bowel sounds, Soft; Negative: Tenderness, Hepatospenomegaly, Mass Extremity Exam: Positive: Tenderness (Left shoulder with increased effusion. Warm, but not erythematous. Unable to raise sarm due to pain/frozen shoulder. tender and pain with passive ROM. ); Negative: Edema Assessment /Plan Problems (1) Enterococcus faecalis infection Status: Chronic Response to Treatment: Improving Problem Text: 01/20 - Cont IV Ampicillin per Id recommendatiosn - last dose January 2701/19 - ID following Recommend 4 weeks IV abx - Ampicillin D#19 (End date January 27) favor bowel source (possibly graft) seeded to L shoulder 01/15 Left shoulder arthroscopic irrigation and debridement, plus preoperative left shoulder aspiration-Charan - cultures negative but already on abx so sterile culture. 01/13/19 Colonoscopy tubular adenoma-no obvious infectious source 01/03 ANURAG without obvious vegetation although thickening of the valves was noted. (Subacute bacterial endocarditis (SBE) prophylaxis is not recommended. Even though the thickening of the aortic valve could potentially represent signs) of infection, no definite vegetations are seen. 01/15/19 shoulder CX P 12/31, 01/01/19 BCX NG 05/02 colonoscopy with Eder with mtp sessile polpys + tubular adenomas, rec repeat scope in 6 months, pt has declined. 08/31 LLE endarterectomy with Bovine tissue - Ralph 02/28 RLE fem endarterectomy, R fem/pop bypass with porpraten graft - Ralph (2) Septic arthritis of shoulder, left Status: Acute Problem Text: 01/20 - c/o more pain and increased effusion om exam Ask ortho to re-visit - Dr. Farrar is aware and will come by to look at shoulder See above - Per ortho. (3) C. difficile colitis Status: Resolved Problem Text: 01/18 - Vanco dose increased to BID while on abx - per ID 3/ Pt with recurrence of loose stools overnight. Certainly risk for recurrence of C Diff as well as gastroenteritis with Norovirus active in the community now. Will check stool specimen, address with attending. He may need to transition form Vanco to Dificid. 01/16 remains on vanco 250 QD/probiotic px no evidence of recurrence (4) Anemia Status: Chronic Response to Treatment: Stable Problem Text: stable s/P EGD/Colonscopy 01/11 - Essentially normal without bleeding source. Tubular adenomas polyps x 2 (5) CKD (chronic kidney disease), stage III Status: Chronic Response to Treatment: Stable Problem Text: 01/17 Stable at baseline. Baseline Scr 1.4-1.6. (6) Diastolic CHF, chronic Status: Acute Response to Treatment: Stable Discussed With: Nurse, Shell Mold Bonder, Patient Problem Text: 01/20 - compensated on Lasix 40 daily and prinivil 01/17 appears compensated 01/13 Patient has rales on exam. Extra dose of lasix today. Monitor vitals. Repeat BMP in AM. 01/08: no edema, lungs ess clear 01/07/19:Appears well compensated on exam today 01/06/19: Appears compensated on exam today. Peripheral edema has improved. Patient with a negative -1285 from I's & O's. Renal function remains stable 01/05/19: Appears compensated today 01/03 Lasix 40 mg daily, appears compensated 12/31 [facility] [place] - Dr Grant has been consulted. Lasix IV 40 mg q12h, I remain unconvinced that his I & Os are accurate, listing 600 in yesterday and 1200 out. Cont to monitor, Scr increased to 1.5 today, baseline is 1.6-1.7, he will be getting 2 units of blood today and an order for Lasix 20 mg between each unit was placed. 12/30 Lasx IV q12h, I + Os appear to be inaccurate, spoke to nursing, slight bump in Scr, monitor, anticipate changing to HD Lasix tomorrow, 40 mg daily. Enc BARRON diet. 12/29/18: Started on Lasix 40mg IV q 12 hours with a net negative of 2L, 1800 cc fluid restriction Chest Xray Impression: Probable interstitial infiltrates. (7) Atrial fibrillation Status: Chronic Response to Treatment: Stable Problem Text: 01/19/19 -Eliquis on hold since 01/07 due to acute anemia. Restart this and monitor Hgb. 01/08: stable, waiting for opinion from Dr. Schwartz as noted. 01/07/19: Rate controlled. Patient is on Eliquis. This will need to be held for colonoscopy. Dr. Schwartz will be in today to provide clearance for procedure 12/29/18: Rate controlled on Bisoprolol 5mg daily. Currently on Eliquis 5 mg po bid (8) DM2 (diabetes mellitus, type 2) Status: Chronic Response to Treatment: Stable Problem Text: 12/29/18: Managed with Lantus 22 units q hs and Humalog sliding scale outpatient. He is currently being covered with mealtime insulin only. He is not NPO, but his fasting BGs have been 78, 99 and he has only required 2 units of coverage. We will monitor and make adjustments in regimen accordingly. Plan/VTE VTE Prophylaxis Ordered?: Yes (Restarted Eliquis 01/19) Plan Therapy: PT Anticipated Discharge: Sub Acute Rehab (Rec STR at d/c.) VS, I&O, 24H, Fishbone Vital Signs/I&O Vital Signs Date Time Temp Pulse Resp B/P (MAP) Pulse Ox O2 Delivery O2 Flow Rate FiO2 01/20/19 06:00 97.0 86 20 142/59 (86) 94 2.0 01/20/19 01:16 Nasal Cannula I&O- Last 24 Hours up to 6 AM 01/20/19 06:00 Intake Total 1170 ml Output Total 725 ml Balance 445 ml Laboratory Data 24H LABS Laboratory Tests 2 01/19/19 11:37: Bedside Glucose (Misc Panel) 185H 01/19/19 17:20: Bedside Glucose (Misc Panel) 193H 01/19/19 20:27: Bedside Glucose (Misc Panel) 148H 01/20/19 06:43: Nucleated Red Blood Cells % (auto) 0.0, C-Reactive Protein, Quantitative 8.71H CBC/BMP Laboratory Tests 01/20/19 06:43 Red Blood Count 3.29 L, Mean Corpuscular Volume 89.7, Mean Corpuscular Hemoglobin 27.4, Mean Corpuscular Hemoglobin Concent 30.5 L, Red Cell Distribution Width 16.3 H Microbiology Microbiology 01/12/19 Anaerobic Culture - Final, Complete 01/15/19 Gram Stain - Final, Complete 01/15/19 Wound Culture - Final, Complete 01/15/19 Anaerobic Culture - Final, Complete 01/12/19 Gram Stain - Final, Complete 01/12/19 Abscess Culture - Final, Complete RJ PALMER PA-C Jan 20, 2019 10:01
[2019-01-20 10:13] LABS: ERYTHROCYTE SEDIMENTATION RATE 70 mm/hr (0-20)
[2019-01-20] MEDS: LISINOPRIL 10 MG TAB PO SCH ×2 (13:11→20:54)
[2019-01-20] MEDS: FENOFIBRATE 145 MG TAB (TRICOR) PO SCH (13:11)
[2019-01-20] MEDS: FINASTERIDE 5 MG TAB PO SCH (13:11)
[2019-01-20] MEDS: BISOPROLOL FUMARATE 5 MG TAB PO SCH (13:12)
[2019-01-20] MEDS: TAMSULOSIN 0.4 MG CAP PO SCH (20:52)
[2019-01-20] MEDS: ROSUVASTATIN 10 MG TAB (CRESTOR) PO SCH (20:52)
[2019-01-20] MEDS: ACETAMINOPHEN 500 MG TAB PO SCH (20:53)
[2019-01-20] MEDS: LATANOPROST 0.005% OPHTH SOLN 2.5 ML OU SCH (20:57)
[2019-01-20 22:00] VITALS: BP 148/62
[2019-01-21] MEDS: IPRATROPIUM 0.5MG/ALBUTEROL 2.5MG INH SOL UD 3ML (DUONEB)(J7620) NEB SCH ×4 (01:07→20:00)
[2019-01-21] MEDS: AMPICILLIN SOD 2 GM in D5W MINI-BAG PLUS 100 ML IV SCH ×6 (01:58→21:31)
[2019-01-21] MEDS: SODIUM CHLORIDE 0.9% INJ 10 ML SYR IV SCH ×2 (05:33→18:00)
[2019-01-21 06:00] VITALS: BP 153/64
[2019-01-21 06:25] LABS: HEMATOCRIT 27.6 % (42.0-52.0); HEMOGLOBIN 8.7 g/dl (13.5-17.5); MEAN CORPUSCULAR HEMOGLOBIN 27.5 pg (27.0-33.0); MEAN CORPUSCULAR HGB CONC 31.5 g/dl (32.0-36.5); MEAN CORPUSCULAR VOLUME 87.3 fl (80.0-96.0); PLATELET COUNT, AUTOMATED 261 10^3/uL (150-450); RED BLOOD COUNT 3.16 10^6/uL (4.30-6.10); WHITE BLOOD COUNT 7.1 10^3/uL (4.0-10.0)
[2019-01-21 06:48] LABS: ERYTHROCYTE SEDIMENTATION RATE 68 mm/hr (0-20)
[2019-01-21 07:04] LABS: C REACTIVE PROTEIN QUANTITATIV 7.92 MG/DL (0.00-0.30)
[2019-01-21] MEDS: ONDANSETRON 4 MG TAB (S0181) PO SCH ×3 (07:08→18:01)
--- NOTE | 2019-01-21 07:42 | IPN ---
DATE: 01/21/2019 CHIEF COMPLAINT: Postoperative followup left shoulder irrigation, debridement and arthroscopy. HISTORY OF PRESENT ILLNESS: This is a 73-year-old man who has had recurrent episodes of Enterococcus faecalis bacteremia. The hospitalist and infectious disease food consultant had ruled out cardiac vegetations. As such, the left shoulder seemed to be the next most logical source and as such I performed an irrigation and debridement with arthroscopy six days ago. This is a postoperative check. The nurses had called wondering about some swelling to the shoulder. PHYSICAL EXAMINATION: Vital Signs: This morning, temperature 97.8, blood pressure 153/64, pulse rate 76, respiratory rate 20, 96% on room air. On inspection, his left shoulder looks mildly swollen, but better than pre surgery. There is no obvious effusion. There is a little bit of diffuse soreness about the shoulder and a little bit of swelling. He has some ecchymosis tracking down the elbow likely from postoperatively. He has normal sensation throughout the hand and axillary nerve and hand is warm and well-perfused. His abdomen does appeared distended, although he did say that he has had 3 or 4 bowel movements recently. He does not complain about pain in the left shoulder. The portal sites look normal and Steri-Strips are in place. LABORATORY EXAMINATION: Reveals hemoglobin to be stable at 8.7. MICROBIOLOGY: From his left shoulder revealed no growth anaerobically or aerobically. This is the full final report. Additionally, from the aspiration performed on 01/12/2019, these are also negative. ASSESSMENT/PLAN: 73-year-old man who is doing well postop day six left shoulder irrigation and debridement with arthroscopy and cultures are negative. Unfortunately, the irrigation and debridement is unable to provide more guidance in terms of his antibiotic choice. He does seem to be feeling better so I think we made the right decision in terms of doing the irrigation and debridement. I will not continue to follow unless there is other further questions or concerns. Usually, he can start showering over the Steri-Strips at about the postoperative week two beni. I will see him in followup in the clinic as needed for his left shoulder at this point. Thank you very much for involving me in this pleasant man's care.
[2019-01-21] MEDS: HumaLOG INSULIN (NovoLOG) PER UNIT SC SCH ×4 (08:02→21:00)
[2019-01-21] MEDS: FERROUS SULFATE 325MG TAB PO SCH (08:02)
[2019-01-21] MEDS: FUROSEMIDE 40 MG TAB PO SCH (08:02)
[2019-01-21] MEDS: ASPIRIN 81 MG ENTERIC TAB PO SCH (08:02)
[2019-01-21] MEDS: LACTOBACILLUS ACIDOPHILUS CAP (BACID) PO SCH ×2 (08:02→21:31)
[2019-01-21] MEDS: ALPRAZolam 0.25 MG TAB PO PRN ×2 (08:02→21:32)
[2019-01-21] MEDS: APIXABAN 5 MG TAB (ELIQUIS) PO SCH ×2 (08:02→21:32)
[2019-01-21] MEDS: POTASSIUM CHLORIDE 10 MEQ SR TABLET PO SCH (08:02)
[2019-01-21] MEDS: SERTRALINE HCL 50 MG TAB PO SCH (08:02)
[2019-01-21] MEDS: VANCOMYCIN ORAL SOL 250MG/5ML ORAL SYRINGE PO SCH ×2 (08:02→21:30)
[2019-01-21] MEDS: OMEPRAZOLE 20 MG CAP PO SCH (08:03)
[2019-01-21] MEDS: OMEGA-3 1000MG CAPSULE PO SCH ×2 (08:03→21:31)
--- NOTE | 2019-01-21 08:41 | IPNPDOC ---
Subjective Date Seen The patient was seen on 01/21/19. Subjective Chief Complaint/HPI Patient seen at bedside this AM complaining of abdominal cramping, feels like he is constipated although he has had 3 loose stools this AM. double lumen PICC line clotted off overnight per staff. Successful flushing of one lumen, with clotting off of the other. Objective Physical Examination General Exam: Positive: Alert, No Acute Distress Neck Exam: Positive: Supple, JVD Chest Exam: Positive: Clear to auscultation, Wheezing (expiratory); Negative: Rhonchi Heart Exam: Positive: Rate Normal, Irregular Rhythm, Murmurs Abdomen Exam: Positive: BS Hyperactive, Soft; Negative: Tenderness, Hepatospenomegaly, Mass Extremity Exam: Positive: Tenderness (Left shoulder with increased effusion. Warm, but not erythematous. Unable to raise sarm due to pain/frozen shoulder. tender and pain with passive ROM. ); Negative: Edema Skin Exam: Positive: Nl turgor and temperature Assessment /Plan Problems (1) Enterococcus faecalis infection Status: Chronic Response to Treatment: Improving Problem Text: 01/21- PICC line clotted off, staff was able to get peripheral access. Will attempt to place new PICC line either today or Thursday. 01/20 - Cont IV Ampicillin per Id recommendatiosn - last dose January 2701/19 - ID following Recommend 4 weeks IV abx - Ampicillin D#19 (End date January 27) favor bowel source (possibly graft) seeded to L shoulder 01/15 Left shoulder arthroscopic irrigation and debridement, plus preoperative left shoulder aspiration-Charan - cultures negative but already on abx so sterile culture. 01/13/19 Colonoscopy tubular adenoma-no obvious infectious source 01/03 ANURAG without obvious vegetation although thickening of the valves was noted. (Subacute bacterial endocarditis (SBE) prophylaxis is not recommended. Even though the thickening of the aortic valve could potentially represent signs) of infection, no definite vegetations are seen. 01/15/19 shoulder CX P 12/31, 01/01/19 BCX NG 05/02 colonoscopy with Eder with mtp sessile polpys + tubular adenomas, rec repeat scope in 6 months, pt has declined. 08/31 LLE endarterectomy with Bovine tissue - Ralph 02/28 RLE fem endarterectomy, R fem/pop bypass with porpraten graft - Ralph (2) Septic arthritis of shoulder, left Status: Acute Problem Text: 01/21- Not complaining of increased pain this AM 01/20 - c/o more pain and increased effusion om exam Ask ortho to re-visit - Dr. Farrar is aware and will come by to look at shoulder See above - Per ortho. (3) C. difficile colitis Status: Resolved Problem Text: 01/18 - Vanco dose increased to BID while on abx - per ID 01/17 Pt with recurrence of loose stools overnight. Certainly risk for recurrence of C Diff as well as gastroenteritis with Norovirus active in the community now. Will check stool specimen, address with attending. He may need to transition form Vanco to Dificid. 01/16 remains on vanco 250 QD/probiotic px no evidence of recurrence (4) Anemia Status: Chronic Response to Treatment: Stable Problem Text: stable s/P EGD/Colonscopy 01/11 - Essentially normal without bleeding source. Tubular adenomas polyps x 2 (5) CKD (chronic kidney disease), stage III Status: Chronic Response to Treatment: Stable Problem Text: 01/17 Stable at baseline. Baseline Scr 1.4-1.6. (6) Diastolic CHF, chronic Status: Acute Response to Treatment: Stable Discussed With: Nurse, Vice President Of Recruiting, Patient Problem Text: 01/21- No signs of volume overload on exam. Patient's I/Os are net negative. Will continue 40 Lasix daily 01/20 - compensated on Lasix 40 daily and prinivil 01/17 appears compensated 01/13 Patient has rales on exam. Extra dose of lasix today. Monitor vitals. Repeat BMP in AM. 01/08: no edema, lungs ess clear 01/07/19:Appears well compensated on exam today 01/06/19: Appears compensated on exam today. Peripheral edema has improved. P atient with a negative -1285 from I's & O's. Renal function remains stable 01/05/19: Appears compensated today 01/03 Lasix 40 mg daily, appears compensated 12/31 [facility] [place] - Dr Grant has been consulted. Lasix IV 40 mg q12h, I remain unconvinced that his I & Os are accurate, listing 600 in yesterday and 1200 out. Cont to monitor, Scr increased to 1.5 today, baseline is 1.6-1.7, he will be getting 2 units of blood today and an order for Lasix 20 mg between each unit was placed. 12/30 Lasx IV q12h, I + Os appear to be inaccurate, spoke to nursing, slight bump in Scr, monitor, anticipate changing to HD Lasix tomorrow, 40 mg daily. Enc BARRON diet. 12/29/18: Started on Lasix 40mg IV q 12 hours with a net negative of 2L, 1800 cc fluid restriction Chest Xray Impression: Probable interstitial infiltrates. (7) Atrial fibrillation Status: Chronic Response to Treatment: Stable Problem Text: 01/21- Continue eliquis, HR adequate for rate control 01/19/19 -Eliquis on hold since 01/07 due to acute anemia. Restart this and monitor Hgb. 01/08: stable, waiting for opinion from Dr. Schwartz as noted. 01/07/19: Rate controlled. Patient is on Eliquis. This will need to be held for colonoscopy. Dr. Schwartz will be in today to provide clearance for procedure 12/29/18: Rate controlled on Bisoprolol 5mg daily. Currently on Eliquis 5 mg po bid (8) DM2 (diabetes mellitus, type 2) Status: Chronic Response to Treatment: Stable Problem Text: 12/29/18: Managed with Lantus 22 units q hs and Humalog sliding scale outpatient. He is currently being covered with mealtime insulin only. He is not NPO, but his fasting BGs have been 78, 99 and he has only required 2 units of coverage. We will monitor and make adjustments in regimen accordingly. Plan/VTE VTE Prophylaxis Ordered?: Yes (Restarted Eliquis 01/19) Plan Therapy: PT Anticipated Discharge: Sub Acute Rehab (Rec STR at d/c.) VS, I&O, 24H, Fishbone Vital Signs/I&O Vital Signs Date Time Temp Pulse Resp B/P (MAP) Pulse Ox O2 Delivery O2 Flow Rate FiO2 01/21/19 06:00 97.8 76 20 153/64 (93) 96 01/21/19 04:14 2.0 01/20/19 01:16 Nasal Cannula I&O- Last 24 Hours up to 6 AM 01/21/19 06:00 Intake Total 1450 ml Output Total 2000 ml Balance -550 ml Laboratory Data 24H LABS Laboratory Tests 2 01/20/19 08:51: Bedside Glucose (Misc Panel) 242H 01/20/19 11:55: Bedside Glucose (Misc Panel) 177H 01/20/19 16:39: Bedside Glucose (Misc Panel) 186H 01/21/19 06:05: Nucleated Red Blood Cells % (auto) 0.0, Erythrocyte Sedimentation Rate 68H, C- Reactive Protein, Quantitative 7.92H CBC/BMP Laboratory Tests 01/21/19 06:05 Red Blood Count 3.16 L, Mean Corpuscular Volume 87.3, Mean Corpuscular Hemoglobin 27.5, Mean Corpuscular Hemoglobin Concent 31.5 L, Red Cell Distribution Width 16.2 H Microbiology Microbiology 01/12/19 Anaerobic Culture - Final, Complete 01/15/19 Gram Stain - Final, Complete 01/15/19 Wound Culture - Final, Complete 01/15/19 Anaerobic Culture - Final, Complete 01/12/19 Gram Stain - Final, Complete 01/12/19 Abscess Culture - Final, Complete GME ATTESTATION GME ATTESTATION My faculty preceptor for this patient encounter was physically present during the encounter and was fully available. All aspects of the patient interview, examination, medical decision making process, and medical care plan development were reviewed and approved by the faculty preceptor. The faculty preceptor is aware and concurs with the plan as stated in the body of this note and will attest to such by his/her cosignature. SHAHEEN ALSTON DO Jan 21, 2019 08:41
[2019-01-21 10:08] LABS: CALCIUM LEVEL 7.7 MG/DL (8.8-10.2); CREATININE FOR GFR 1.32 MG/DL (0.70-1.30); GLOMERULAR FILTRATION RATE 56.3 (>42); POTASSIUM SERUM 4.7 MEQ/L (3.5-5.1)
[2019-01-21] MEDS: FENOFIBRATE 145 MG TAB (TRICOR) PO SCH (12:10)
[2019-01-21] MEDS: LISINOPRIL 10 MG TAB PO SCH ×2 (12:11→21:32)
[2019-01-21] MEDS: FINASTERIDE 5 MG TAB PO SCH (12:11)
[2019-01-21] MEDS: BISOPROLOL FUMARATE 5 MG TAB PO SCH (12:11)
[2019-01-21 14:00] VITALS: BP 143/78
[2019-01-21] MEDS ORDERED: LIDOCAINE 1% MDV 20ML VIAL As Ordered ONE (14:43)
--- NOTE | 2019-01-21 15:05 | IPN ---
DATE: 01/21/2019 Mr. Cruz is doing well, complaining of being hungry as his lunch has not been delivered and it is 2-o'clock. He denies any chest pain, shortness of breath, cough, no fever or chills. He states his shoulder still is very limited in range of motion and he has pain around 45 degrees when passively abducted. His peripherally inserted central catheter (PICC) line was occluded but they were able to successfully flush one of the lumens. On physical exam. Temperature is 97.8, pulse 76, respirations 20, blood pressure 153/64, O2 sat 96% on 2 liters nasal cannula. Heart: Irregular. Normal S1, S2. Lungs: Expiratory rhonchi and few wheezes bilaterally. Abdomen: Obese, soft, nontender. Extremities: Trace lower extremity edema. Left shoulder with increasing effusion compared to surgical date. No erythema. Mild tenderness. Sutures in place. Very limited active abduction to 10 degrees, passively I can go to 45 degrees before he complains of pain. IMPRESSION: 1. E faecalis bacteremia on IV ampicillin. Previously had received synergistic therapy with Rocephin for 10 days. Transesophageal echocardiogram was negative on 01/03/2019 status post left shoulder arthroscopic irrigation for septic arthritis by Dr. Farrar. 2. Septic arthritis of left shoulder: The patient will be treated with 4 weeks of IV ampicillin. Continue to monitor CBC, CRP, ESR every 2-3 days. 3. History of C difficile colitis: The patient was having increasing diarrhea and therefore he remained on vancomycin to prevent recurrent C difficile currently at 250 mg twice a day. PLAN: Continue IV ampicillin until January 27 for recurrent E faecalis bacteremia and septic arthritis of left shoulder. Once ampicillin is discontinued, then patient will be tapered off vancomycin as well.
--- NOTE | 2019-01-21 15:53 | REP ---
PICC LINE INSERTION WITH SITEEMMY, 01/21/2019: ADMITTING DIAGNOSIS: Congestive heart failure. REASON FOR EXAM: IV medications, IV access needed. PROCEDURE: PICC line insertion with Ernestina-Anders. Procedure was performed under the personal supervision of Dr. Torres. The risks and benefits of the procedure were explained to the patient and informed consent was obtained. The right basilic vein was localized using ultrasound guidance. The skin was prepped and draped in a sterile fashion. 2 mL of 1% lidocaine was used as a local anesthetic. Using ultrasound guidance the basilic vein was cannulated and a 0.018 guidewire was inserted and advanced to the SVC using fluoroscopic guidance. The needle was removed and a 5.5 Nigerian dilator and a Peel-Away sheath was inserted over the guidewire. A 5.5 Nigerian dual lumen catheter was cut to the length of 35 cm. The dilator was removed and the catheter was inserted over the guidewire with the tip ending in the SVC. The Peel-Away sheath was removed and the catheter was flushed with heparinized saline as per hospital protocol. The catheter was affixed to the skin and a sterile dressing was applied. The patient tolerated the procedure well and there were no immediate complications. 0.2 minutes of fluoro time was utilized in this procedure. Electronically Signed by Zachary Torres MD 01/24/2019 12:00 P
[2019-01-21] MEDS: ACETAMINOPHEN TAB 650MG DOSE (2X325MG) PO PRN (16:12)
[2019-01-21] MEDS: TAMSULOSIN 0.4 MG CAP PO SCH (21:32)
[2019-01-21] MEDS: ACETAMINOPHEN 500 MG TAB PO SCH (21:32)
[2019-01-21] MEDS: LATANOPROST 0.005% OPHTH SOLN 2.5 ML OU SCH (21:32)
[2019-01-21] MEDS: ROSUVASTATIN 10 MG TAB (CRESTOR) PO SCH (21:32)
[2019-01-21 22:00] VITALS: BP 100/84
[2019-01-22] MEDS: ACETAMINOPHEN TAB 650MG DOSE (2X325MG) PO PRN ×3 (00:20→16:00)
[2019-01-22] MEDS: AMPICILLIN SOD 2 GM in D5W MINI-BAG PLUS 100 ML IV SCH ×6 (01:18→21:06)
[2019-01-22] MEDS: IPRATROPIUM 0.5MG/ALBUTEROL 2.5MG INH SOL UD 3ML (DUONEB)(J7620) NEB SCH ×4 (01:45→20:40)
[2019-01-22] MEDS: ONDANSETRON 4 MG TAB (S0181) PO SCH ×5 (05:09→23:14)
[2019-01-22] MEDS: SODIUM CHLORIDE 0.9% INJ 10 ML SYR IV SCH ×2 (05:09→18:20)
[2019-01-22 05:28] LABS: HEMATOCRIT 28.4 % (42.0-52.0); HEMOGLOBIN 8.8 g/dl (13.5-17.5); MEAN CORPUSCULAR HEMOGLOBIN 28.1 pg (27.0-33.0); MEAN CORPUSCULAR VOLUME 90.7 fl (80.0-96.0); PLATELET COUNT, AUTOMATED 261 10^3/uL (150-450); RED BLOOD COUNT 3.13 10^6/uL (4.30-6.10); WHITE BLOOD COUNT 7.9 10^3/uL (4.0-10.0)
[2019-01-22 05:48] LABS: ERYTHROCYTE SEDIMENTATION RATE 68 mm/hr (0-20)
[2019-01-22 05:54] LABS: C REACTIVE PROTEIN QUANTITATIV 8.06 MG/DL (0.00-0.30); CALCIUM LEVEL 7.7 MG/DL (8.8-10.2); CREATININE FOR GFR 1.57 MG/DL (0.70-1.30); GLOMERULAR FILTRATION RATE 46.1 (>42); POTASSIUM SERUM 4.6 MEQ/L (3.5-5.1)
[2019-01-22 06:00] VITALS: BP 102/80
[2019-01-22] MEDS: LACTOBACILLUS ACIDOPHILUS CAP (BACID) PO SCH ×2 (09:44→21:04)
[2019-01-22] MEDS: POTASSIUM CHLORIDE 10 MEQ SR TABLET PO SCH (09:44)
[2019-01-22] MEDS: OMEGA-3 1000MG CAPSULE PO SCH ×2 (09:45→21:04)
[2019-01-22] MEDS: FUROSEMIDE 40 MG TAB PO SCH (09:45)
[2019-01-22] MEDS: VANCOMYCIN ORAL SOL 250MG/5ML ORAL SYRINGE PO SCH ×2 (09:45→21:03)
[2019-01-22] MEDS: ASPIRIN 81 MG ENTERIC TAB PO SCH (09:45)
[2019-01-22] MEDS: APIXABAN 5 MG TAB (ELIQUIS) PO SCH ×2 (09:45→21:04)
[2019-01-22] MEDS: OMEPRAZOLE 20 MG CAP PO SCH (09:45)
[2019-01-22] MEDS: FERROUS SULFATE 325MG TAB PO SCH (09:45)
[2019-01-22] MEDS: SERTRALINE HCL 50 MG TAB PO SCH (09:45)
[2019-01-22] MEDS: HumaLOG INSULIN (NovoLOG) PER UNIT SC SCH ×4 (09:46→20:54)
--- NOTE | 2019-01-22 11:44 | IPNPDOC ---
Subjective Date Seen The patient was seen on 01/22/19. Subjective Chief Complaint/HPI Patient seen at bedside this AM. No acute events overnight. Complaining of needing to go to the bathroom. Denies any headache, dizziness, chest pain, dyspnea, abdominal pain, nausea, vomiting, or swelling in his extremities Objective Physical Examination General Exam: Positive: Alert, No Acute Distress Neck Exam: Positive: Supple, JVD Chest Exam: Positive: Clear to auscultation, Wheezing (expiratory); Negative: Rhonchi Heart Exam: Positive: Rate Normal, Irregular Rhythm, Murmurs Abdomen Exam: Positive: BS Hyperactive, Soft (protuberant abdomen); Negative: Tenderness, Hepatospenomegaly, Mass Extremity Exam: Positive: Tenderness (Left shoulder with increased effusion. Warm, but not erythematous. Unable to raise sarm due to pain/frozen shoulder. tender and pain with passive ROM. ); Negative: Edema Skin Exam: Positive: Nl turgor and temperature Assessment /Plan Problems (1) Enterococcus faecalis infection Status: Chronic Response to Treatment: Improving Problem Text: 01/22- PICC line was placed yesterday and is doing well so far. Will continue until 01/27 01/21- PICC line clotted off, staff was able to get peripheral access. Will atte mpt to place new PICC line either today or Thursday. 01/20 - Cont IV Ampicillin per Id recommendatiosn - last dose January 2701/19 - ID following Recommend 4 weeks IV abx - Ampicillin D#19 (End date January 27) favor bowel source (possibly graft) seeded to L shoulder 01/15 Left shoulder arthroscopic irrigation and debridement, plus preoperative left shoulder aspiration-Charan - cultures negative but already on abx so sterile culture. 01/13/19 Colonoscopy tubular adenoma-no obvious infectious source 01/03 ANURAG without obvious vegetation although thickening of the valves was noted. (Subacute bacterial endocarditis (SBE) prophylaxis is not recommended. Even though the thickening of the aortic valve could potentially represent signs) of infection, no definite vegetations are seen. 01/15/19 shoulder CX P 12/31, 01/01/19 BCX NG 05/02 colonoscopy with Eder with mtp sessile polpys + tubular adenomas, rec repeat scope in 6 months, pt has declined. 08/31 LLE endarterectomy with Bovine tissue - Ralph 02/28 RLE fem endarterectomy, R fem/pop bypass with porpraten graft - Ralph (2) Septic arthritis of shoulder, left Status: Acute Problem Text: 01/21- Not complaining of increased pain this AM 01/20 - c/o more pain and increased effusion om exam Ask ortho to re-visit - Dr. Farrar is aware and will come by to look at shoulder See above - Per ortho. (3) C. difficile colitis Status: Resolved Problem Text: 01/18 - Vanco dose increased to BID while on abx - per ID 01/17 Pt with recurrence of loose stools overnight. Certainly risk for recurrence of C Diff as well as gastroenteritis with Norovirus active in the community now. Will check stool specimen, address with attending. He may need to transition form Vanco to Dificid. 01/16 remains on vanco 250 QD/probiotic px no evidence of recurrence (4) Anemia Status: Chronic Response to Treatment: Stable Problem Text: stable s/P EGD/Colonscopy 01/11 - Essentially normal without bleeding source. Tubular adenomas polyps x 2 (5) CKD (chronic kidney disease), stage III Status: Chronic Response to Treatment: Stable Problem Text: 01/17 Stable at baseline. Baseline Scr 1.4-1.6. (6) Diastolic CHF, chronic Status: Acute Response to Treatment: Stable Discussed With: Nurse, Genomics Scientist, Patient Problem Text: 01/21- No signs of volume overload on exam. Patient's I/Os are net negative. Will continue 40 Lasix daily 01/20 - compensated on Lasix 40 daily and prinivil 01/17 appears compensated 01/13 Patient has rales on exam. Extra dose of lasix today. Monitor vitals. Repea t BMP in AM. 01/08: no edema, lungs ess clear 01/07/19:Appears well compensated on exam today 01/06/19: Appears compensated on exam today. Peripheral edema has improved. Patient with a negative -1285 from I's & O's. Renal function remains stable 01/05/19: Appears compensated today 01/03 Lasix 40 mg daily, appears compensated 12/31 [facility] [place] - Dr Grant has been consulted. Lasix IV 40 mg q12h, I remain unconvinced that his I & Os are accurate, listing 600 in yesterday and 1200 out. Cont to monitor, Scr increased to 1.5 today, baseline is 1.6-1.7, he will be getting 2 units of blood today and an order for Lasix 20 mg between each unit was placed. 12/30 Lasx IV q12h, I + Os appear to be inaccurate, spoke to nursing, slight bump in Scr, monitor, anticipate changing to HD Lasix tomorrow, 40 mg daily. Enc BARRON diet. 12/29/18: Started on Lasix 40mg IV q 12 hours with a net negative of 2L, 1800 cc fluid restriction Chest Xray Impression: Probable interstitial infiltrates. (7) Atrial fibrillation Status: Chronic Response to Treatment: Stable Problem Text: 01/21- Continue eliquis, HR adequate for rate control 01/19/19 -Eliquis on hold since 01/07 due to acute anemia. Restart this and monitor Hgb. 01/08: stable, waiting for opinion from Dr. Schwartz as noted. 01/07/19: Rate controlled. Patient is on Eliquis. This will need to be held for colonoscopy. Dr. Schwartz will be in today to provide clearance for procedure 12/29/18: Rate controlled on Bisoprolol 5mg daily. Currently on Eliquis 5 mg po bid (8) DM2 (diabetes mellitus, type 2) Status: Chronic Response to Treatment: Stable Problem Text: 12/29/18: Managed with Lantus 22 units q hs and Humalog sliding scale outpatient. He is currently being covered with mealtime insulin only. He is not NPO, but his fasting BGs have been 78, 99 and he has only required 2 uni ts of coverage. We will monitor and make adjustments in regimen accordingly. Plan/VTE VTE Prophylaxis Ordered?: Yes (Restarted Eliquis 01/19) Plan Therapy: PT Anticipated Discharge: Sub Acute Rehab (Rec STR at d/c.) VS, I&O, 24H, Fishbone Vital Signs/I&O Vital Signs Date Time Temp Pulse Resp B/P (MAP) Pulse Ox O2 Delivery O2 Flow Rate FiO2 01/22/19 06:00 97.2 69 18 102/80 (87) 91 01/21/19 21:00 2.0 01/20/19 01:16 Nasal Cannula I&O- Last 24 Hours up to 6 AM 01/22/19 05:59 Intake Total 1480 ml Output Total 1175 ml Balance 305 ml Laboratory Data 24H LABS Laboratory Tests 2 01/21/19 20:44: Bedside Glucose (Misc Panel) 189H 01/22/19 05:09: Nucleated Red Blood Cells % (auto) 0.0, Erythrocyte Sedimentation Rate 68H, Anion Gap 7L, Glomerular Filtration Rate 46.1, Blood Urea Nitrogen 30H, Creatinine 1.57H, Sodium Level 135L, Potassium Level 4.6, Chloride Level 101, Carbon Dioxide Level 27, Calcium Level 7.7L, C-Reactive Protein, Quantitative 8.06H CBC/BMP Laboratory Tests 01/22/19 05:09 Red Blood Count 3.13 L, Mean Corpuscular Volume 90.7, Mean Corpuscular Hemoglobin 28.1, Mean Corpuscular Hemoglobin Concent 31.0 L, Red Cell Distribution Width 16.4 H, Calcium Level 7.7 L Microbiology Microbiology 01/12/19 Anaerobic Culture - Final, Complete 01/15/19 Gram Stain - Final, Complete 01/15/19 Wound Culture - Final, Complete 01/15/19 Anaerobic Culture - Final, Complete 01/12/19 Gram Stain - Final, Complete 01/12/19 Abscess Culture - Final, Complete GME ATTESTATION GME ATTESTATION My faculty preceptor for this patient encounter was physically present during the encounter and was fully available. All aspects of the patient interview, examination, medical decision making process, and medical care plan development were reviewed and approved by the faculty preceptor. The faculty preceptor is aware and concurs with the plan as stated in the body of this note and will attest to such by his/her cosignature. ATTENDING NOTE Patient was seen and examined by the attending physician. The case was reviewed with the PGY-1. SHAHEEN ALSTON DO Jan 22, 2019 11:44 Pastor Bryan M.D. Jan 23, 2019 10:27
[2019-01-22] MEDS: FENOFIBRATE 145 MG TAB (TRICOR) PO SCH (12:33)
[2019-01-22] MEDS: BISOPROLOL FUMARATE 5 MG TAB PO SCH (12:33)
[2019-01-22] MEDS: LISINOPRIL 10 MG TAB PO SCH ×2 (12:33→21:04)
[2019-01-22] MEDS: FINASTERIDE 5 MG TAB PO SCH (12:33)
[2019-01-22 14:00] VITALS: BP 130/72
[2019-01-22] MEDS: ALPRAZolam 0.25 MG TAB PO PRN (16:46)
[2019-01-22] MEDS: TAMSULOSIN 0.4 MG CAP PO SCH (21:04)
[2019-01-22] MEDS: ROSUVASTATIN 10 MG TAB (CRESTOR) PO SCH (21:04)
[2019-01-22] MEDS: LATANOPROST 0.005% OPHTH SOLN 2.5 ML OU SCH (21:04)
[2019-01-22] MEDS: ACETAMINOPHEN 500 MG TAB PO SCH (21:04)
[2019-01-22 22:00] VITALS: BP 115/55
[2019-01-23] MEDS: AMPICILLIN SOD 2 GM in D5W MINI-BAG PLUS 100 ML IV SCH ×6 (01:13→22:02)
[2019-01-23] MEDS: IPRATROPIUM 0.5MG/ALBUTEROL 2.5MG INH SOL UD 3ML (DUONEB)(J7620) NEB SCH ×4 (02:00→20:29)
[2019-01-23 05:25] LABS: HEMATOCRIT 27.6 % (42.0-52.0); HEMOGLOBIN 8.5 g/dl (13.5-17.5); MEAN CORPUSCULAR HEMOGLOBIN 27.8 pg (27.0-33.0); MEAN CORPUSCULAR HGB CONC 30.8 g/dl (32.0-36.5); MEAN CORPUSCULAR VOLUME 90.2 fl (80.0-96.0); PLATELET COUNT, AUTOMATED 268 10^3/uL (150-450); RED BLOOD COUNT 3.06 10^6/uL (4.30-6.10); WHITE BLOOD COUNT 9.8 10^3/uL (4.0-10.0)
[2019-01-23] MEDS: ONDANSETRON 4 MG TAB (S0181) PO SCH ×3 (05:31→17:01)
[2019-01-23] MEDS: SODIUM CHLORIDE 0.9% INJ 10 ML SYR IV SCH ×2 (05:33→18:32)
[2019-01-23 05:54] LABS: C REACTIVE PROTEIN QUANTITATIV 8.53 MG/DL (0.00-0.30); CALCIUM LEVEL 7.7 MG/DL (8.8-10.2); CREATININE FOR GFR 1.41 MG/DL (0.70-1.30); GLOMERULAR FILTRATION RATE 52.2 (>42); POTASSIUM SERUM 4.9 MEQ/L (3.5-5.1)
[2019-01-23 06:00] VITALS: BP 125/60
[2019-01-23 07:17] LABS: ERYTHROCYTE SEDIMENTATION RATE 86 mm/hr (0-20)
[2019-01-23] MEDS: POTASSIUM CHLORIDE 10 MEQ SR TABLET PO SCH (08:16)
[2019-01-23] MEDS: ASPIRIN 81 MG ENTERIC TAB PO SCH (08:16)
[2019-01-23] MEDS: OMEGA-3 1000MG CAPSULE PO SCH ×2 (08:16→21:12)
[2019-01-23] MEDS: APIXABAN 5 MG TAB (ELIQUIS) PO SCH ×2 (08:17→21:13)
[2019-01-23] MEDS: LACTOBACILLUS ACIDOPHILUS CAP (BACID) PO SCH ×2 (08:17→21:12)
[2019-01-23] MEDS: VANCOMYCIN ORAL SOL 250MG/5ML ORAL SYRINGE PO SCH ×2 (08:17→21:12)
[2019-01-23] MEDS: ACETAMINOPHEN TAB 650MG DOSE (2X325MG) PO PRN ×2 (08:17→14:56)
[2019-01-23] MEDS: FERROUS SULFATE 325MG TAB PO SCH (08:17)
[2019-01-23] MEDS: OMEPRAZOLE 20 MG CAP PO SCH (08:18)
[2019-01-23] MEDS: SERTRALINE HCL 50 MG TAB PO SCH (08:18)
[2019-01-23] MEDS: FUROSEMIDE 40 MG TAB PO SCH (08:18)
[2019-01-23] MEDS: HumaLOG INSULIN (NovoLOG) PER UNIT SC SCH ×4 (08:19→21:14)
[2019-01-23] MEDS: FINASTERIDE 5 MG TAB PO SCH (11:01)
[2019-01-23] MEDS: FENOFIBRATE 145 MG TAB (TRICOR) PO SCH (11:02)
[2019-01-23] MEDS: ALPRAZolam 0.25 MG TAB PO PRN ×2 (11:02→22:02)
[2019-01-23] MEDS: BISOPROLOL FUMARATE 5 MG TAB PO SCH (11:02)
[2019-01-23] MEDS: LISINOPRIL 10 MG TAB PO SCH ×2 (11:02→21:13)
[2019-01-23] MEDS: IPRATROPIUM 0.5MG/ALBUTEROL 2.5MG INH SOL UD 3ML (DUONEB)(J7620) NEB PRN (13:34)
[2019-01-23 14:00] VITALS: BP 140/62
[2019-01-23] MEDS: LATANOPROST 0.005% OPHTH SOLN 2.5 ML OU SCH (21:11)
[2019-01-23] MEDS: ACETAMINOPHEN 500 MG TAB PO SCH (21:12)
[2019-01-23] MEDS: TAMSULOSIN 0.4 MG CAP PO SCH (21:13)
[2019-01-23] MEDS: ROSUVASTATIN 10 MG TAB (CRESTOR) PO SCH (21:13)
[2019-01-23 22:00] VITALS: BP 130/64
[2019-01-24] MEDS: ONDANSETRON 4 MG TAB (S0181) PO SCH ×4 (00:44→18:27)
[2019-01-24] MEDS: AMPICILLIN SOD 2 GM in D5W MINI-BAG PLUS 100 ML IV SCH ×6 (01:33→22:03)
[2019-01-24] MEDS: IPRATROPIUM 0.5MG/ALBUTEROL 2.5MG INH SOL UD 3ML (DUONEB)(J7620) NEB SCH ×4 (02:00→20:00)
[2019-01-24] MEDS: ACETAMINOPHEN TAB 650MG DOSE (2X325MG) PO PRN ×2 (02:48→13:21)
[2019-01-24] MEDS: IPRATROPIUM 0.5MG/ALBUTEROL 2.5MG INH SOL UD 3ML (DUONEB)(J7620) NEB PRN ×2 (03:27→11:12)
[2019-01-24] MEDS: SODIUM CHLORIDE 0.9% INJ 10 ML SYR IV SCH ×2 (05:19→18:28)
[2019-01-24 05:44] LABS: HEMATOCRIT 25.8 % (42.0-52.0); MEAN CORPUSCULAR HEMOGLOBIN 28.2 pg (27.0-33.0); MEAN CORPUSCULAR VOLUME 90.8 fl (80.0-96.0); PLATELET COUNT, AUTOMATED 259 10^3/uL (150-450); RED BLOOD COUNT 2.84 10^6/uL (4.30-6.10); WHITE BLOOD COUNT 9.1 10^3/uL (4.0-10.0)
[2019-01-24 06:00] VITALS: BP 118/78
[2019-01-24 06:06] LABS: CALCIUM LEVEL 7.9 MG/DL (8.8-10.2); CREATININE FOR GFR 1.56 MG/DL (0.70-1.30); GLOMERULAR FILTRATION RATE 46.4 (>42); POTASSIUM SERUM 4.6 MEQ/L (3.5-5.1)
[2019-01-24] MEDS: OMEPRAZOLE 20 MG CAP PO SCH (08:44)
[2019-01-24] MEDS: SERTRALINE HCL 50 MG TAB PO SCH (08:44)
[2019-01-24] MEDS: APIXABAN 5 MG TAB (ELIQUIS) PO SCH ×2 (08:44→21:08)
[2019-01-24] MEDS: FERROUS SULFATE 325MG TAB PO SCH (08:44)
[2019-01-24] MEDS: VANCOMYCIN ORAL SOL 250MG/5ML ORAL SYRINGE PO SCH ×2 (08:44→21:08)
[2019-01-24] MEDS: OMEGA-3 1000MG CAPSULE PO SCH ×2 (08:44→21:08)
[2019-01-24] MEDS: FUROSEMIDE 40 MG TAB PO SCH (08:44)
[2019-01-24] MEDS: LACTOBACILLUS ACIDOPHILUS CAP (BACID) PO SCH ×2 (08:44→21:08)
[2019-01-24] MEDS: ASPIRIN 81 MG ENTERIC TAB PO SCH (08:44)
[2019-01-24] MEDS: HumaLOG INSULIN (NovoLOG) PER UNIT SC SCH ×4 (08:44→21:07)
[2019-01-24] MEDS: POTASSIUM CHLORIDE 10 MEQ SR TABLET PO SCH (08:45)
--- NOTE | 2019-01-24 11:56 | IPN ---
DATE OF VISIT: 01/23/2019 The patient is seen today on [facility]. He is denying any shortness of breath or cough, abdominal pain, back pain. We did notice him to be calling out inappropriately for his anxiety medicine after I had left the room. Subsequently, grousing about lack of attention from the nurses and not receiving his lunch on time. He is continuing to receive intravenous (IV) antibiotics because of the enterococcus bacteremia that he has been noted to have. CURRENT MEDICATIONS: Are Eliquis. He is on by mouth vancomycin, Bacid, Zofran, furosemide, IV ampicillin, potassium, Zebeta, Proscar, Tricor, aspirin, iron, Prilosec, Zoloft. He gets scheduled Tylenol at bedtime, getting fish oil, latanoprost drops, lisinopril, Flomax, Crestor, Humalog by sliding scale, DuoNebs, Xanax three times a day as needed, artificial tears as needed, Mucinex as needed, and he has as needed DuoNebs. On examination, his temperature is 98.9, blood pressure 136/68, pulse 77 and irregular, respirations rate is 20 on 2 liters nasal cannula, he has 93% oxygen saturation. He appears somewhat cushingoid, but he is not on any steroids at this time. His eyes are clear. Face is a little puffy. Lungs show diminished breath sounds, otherwise clear. Heart: Has an irregular rhythm without any murmur, click, or gallop. Abdomen: Soft, nontender, without any masses or organomegaly. Bowel sounds are active. No edema. LABORATORIES: Today show a hemoglobin of 8.5, WBC is 9800, platelets 268,000. Glucose is 209, BUN 38, creatinine 1.41 sodium 132, potassium 4.9, C-reactive protein still running 8.5, albumin earlier this week was 1.9. Blood sugars in the last 24 hours have been 206 and 240, as well as the one noted from his laboratories this morning. ASSESSMENT: 1. Enterococcus faecalis bacteremia. Continues to be on treatment. 2. History of septic arthritis of the shoulder. No complaints at this time. 3. Clostridium (C) difficile colitis. Okay at this time. 4. Anemia, chronic. 5. Chronic kidney disease, stable. 6. Diastolic congestive heart failure, stable. 7. Chronic obstructive lung disease, stable. 8. Diastolic congestive heart failure, stable. 9. Chronic atrial fibrillation, stable, on anticoagulation. 10. Diabetes mellitus. PLAN: The patient will continue on his current medications. No changes are made today. At some point in the near future, he will be able to be discharged from this facility, probably to go for subacute rehabilitation, but I think ultimately for placement.
[2019-01-24] MEDS: FINASTERIDE 5 MG TAB PO SCH (12:21)
[2019-01-24] MEDS: LISINOPRIL 10 MG TAB PO SCH ×2 (12:22→21:00)
[2019-01-24] MEDS: FENOFIBRATE 145 MG TAB (TRICOR) PO SCH (12:22)
[2019-01-24] MEDS: BISOPROLOL FUMARATE 5 MG TAB PO SCH (12:22)
[2019-01-24 14:00] VITALS: BP 105/60
--- NOTE | 2019-01-24 14:43 | IPNPDOC ---
Subjective Date Seen The patient was seen on 01/24/19. Subjective Chief Complaint/HPI No acute events overnight. Patient continues to have intermittent belly pain but is not having loose stool. Denies any chest pain, dyspnea, headache, dizziness, or current stomach pains. Objective Physical Examination General Exam: Positive: Alert, No Acute Distress Neck Exam: Positive: Supple, JVD Chest Exam: Positive: Clear to auscultation; Negative: Rhonchi, Wheezing Heart Exam: Positive: Rate Normal, Irregular Rhythm, Murmurs Abdomen Exam: Positive: BS Hyperactive, Soft (protuberant abdomen); Negative: Tenderness, Hepatospenomegaly, Mass Extremity Exam: Positive: Tenderness (Left shoulder with increased effusion. Warm, but not erythematous. Unable to raise sarm due to pain/frozen shoulder. tender and pain with passive ROM. ); Negative: Edema Skin Exam: Positive: Nl turgor and temperature Assessment /Plan Problems (1) Enterococcus faecalis infection Status: Chronic Response to Treatment: Improving Problem Text: 01/24 Patient is stable on current medication. Also receiving prophylaxis for C. Diff infection. 01/22- PICC line was placed yesterday and is doing well so far. Will continue until 01/27 01/21- PICC line clotted off, staff was able to get peripheral access. Will attempt to place new PICC line either today or Thursday. 01/20 - Cont IV Ampicillin per Id recommendations - last dose January 2701/19 - ID following Recommend 4 weeks IV abx - Ampicillin D#19 (End date January 27) favor bowel source (possibly graft) seeded to L shoulder 01/15 Left shoulder arthroscopic irrigation and debridement, plus preoperative left shoulder aspiration-Charan - cultures negative but already on abx so sterile culture. 01/13/19 Colonoscopy tubular adenoma-no obvious infectious source 01/03 ANURAG without obvious vegetation although thickening of the valves was noted. (Subacute bacterial endocarditis (SBE) prophylaxis is not recommended. Even though the thickening of the aortic valve could potentially represent signs) of infection, no definite vegetations are seen. 01/15/19 shoulder CX P 12/31, 01/01/19 BCX NG 05/02 colonoscopy with Eder with mtp sessile polpys + tubular adenomas, rec repeat scope in 6 months, pt has declined. 08/31 LLE endarterectomy with Bovine tissue - Ralph 02/28 RLE fem endarterectomy, R fem/pop bypass with porpraten graft - Ralph (2) Septic arthritis of shoulder, left Status: Acute Problem Text: 01/21- Not complaining of increased pain this AM 01/20 - c/o more pain and increased effusion om exam Ask ortho to re-visit - Dr. Farrar is aware and will come by to look at shoulder See above - Per ortho. (3) C. difficile colitis Status: Resolved Problem Text: 01/24- On vancomycin prophylaxis per ID. Bowel movements have been formed and soft recently. 01/18 - Vanco dose increased to BID while on abx - per ID 01/17 Pt with recurrence of loose stools overnight. Certainly risk for recurrence of C Diff as well as gastroenteritis with Norovirus active in the community now. Will check stool specimen, address with attending. He may need to transition form Vanco to Dificid. 01/16 remains on vanco 250 QD/probiotic px no evidence of recurrence (4) Anemia Status: Chronic Response to Treatment: Stable Problem Text: stable s/P EGD/Colonscopy 01/11 - Essentially normal without bleeding source. Tubular adenomas polyps x 2 (5) CKD (chronic kidney disease), stage III Status: Chronic Response to Treatment: Stable Problem Text: 01/17 Stable at baseline. Baseline Scr 1.4-1.6. (6) Diastolic CHF, chronic Status: Acute Response to Treatment: Stable Discussed With: Nurse, Warehouse Consultant, Patient Problem Text: 01/21- No signs of volume overload on exam. Patient's I/Os are net negative. Will continue 40 Lasix daily 01/20 - compensated on Lasix 40 daily and prinivil 01/17 appears compensated 01/13 Patient has rales on exam. Extra dose of lasix today. Monitor vitals. Repeat BMP in AM. 01/08: no edema, lungs ess clear 01/07/19:Appears well compensated on exam today 01/06/19: Appears compensated on exam today. Peripheral edema has improved. Patient with a negative -1285 from I's & O's. Renal function remains stable 01/05/19: Appears compensated today 01/03 Lasix 40 mg daily, appears compensated 12/31 [facility] [place] Dr Grant has been consulted. Lasix IV 40 mg q12h, I remain unconvinced that his I & Os are accurate, listing 600 in yesterday and 1200 out. Cont to monitor, Scr increased to 1.5 today, baseline is 1.6-1.7, he will be getting 2 units of blood today and an order for Lasix 20 mg between each unit was placed. 12/30 Lasx IV q12h, I + Os appear to be inaccurate, spoke to nursing, slight bump in Scr, monitor, anticipate changing to HD Lasix tomorrow, 40 mg daily. Enc BARRON diet. 12/29/18: Started on Lasix 40mg IV q 12 hours with a net negative of 2L, 1800 cc fluid restriction Chest Xray Impression: Probable interstitial infiltrates. (7) Atrial fibrillation Status: Chronic Response to Treatment: Stable Problem Text: 01/21- Continue eliquis, HR adequate for rate control 01/19/19 -Eliquis on hold since 01/07 due to acute anemia. Restart this and monitor Hgb. 01/08: stable, waiting for opinion from Dr. Schwartz as noted. 01/07/19: Rate controlled. Patient is on Eliquis. This will need to be held for colonoscopy. Dr. Schwartz will be in today to provide clearance for procedure 12/29/18: Rate controlled on Bisoprolol 5mg daily. Currently on Eliquis 5 mg po bid (8) DM2 (diabetes mellitus, type 2) Status: Chronic Response to Treatment: Stable Problem Text: 12/29/18: Managed with Lantus 22 units q hs and Humalog sliding scale outpatient. He is currently being covered with mealtime insulin only. He is not NPO, but his fasting BGs have been 78, 99 and he has only required 2 units of coverage. We will monitor and make adjustments in regimen accordingly. Plan/VTE VTE Prophylaxis Ordered?: Yes (Restarted Eliquis 01/19) Plan Therapy: PT Anticipated Discharge: Sub Acute Rehab (Rec STR at d/c.) VS, I&O, 24H, Fishbone Vital Signs/I&O Vital Signs Date Time Temp Pulse Resp B/P (MAP) Pulse Ox O2 Delivery O2 Flow Rate FiO2 01/24/19 12:22 85 128/84 01/24/19 09:00 2.0 01/24/19 06:00 97.5 18 98 01/20/19 01:16 Nasal Cannula I&O- Last 24 Hours up to 6 AM 3/11/19 06:00 Intake Total 1563 ml Output Total 870 ml Balance 693 ml Laboratory Data 24H LABS Laboratory Tests 2 01/23/19 20:21: Bedside Glucose (Misc Panel) 271H 01/24/19 05:28: Nucleated Red Blood Cells % (auto) 0.0, Anion Gap 6L, Glomerular Filtration Rate 46.4, Blood Urea Nitrogen 34H, Creatinine 1.56H, Sodium Level 136, Potassium Level 4.6, Chloride Level 100, Carbon Dioxide Level 30, Calcium Level 7.9L CBC/BMP Laboratory Tests 01/24/19 05:28 Red Blood Count 2.84 L, Mean Corpuscular Volume 90.8, Mean Corpuscular Hemoglobin 28.2, Mean Corpuscular Hemoglobin Concent 31.0 L, Red Cell Distribution Width 16.3 H, Calcium Level 7.9 L Microbiology Microbiology 01/15/19 Gram Stain - Final, Complete 01/15/19 Wound Culture - Final, Complete 01/15/19 Anaerobic Culture - Final, Complete GME ATTESTATION GME ATTESTATION My faculty preceptor for this patient encounter was physically present during the encounter and was fully available. All aspects of the patient interview, examination, medical decision making process, and medical care plan development were reviewed and approved by the faculty preceptor. The faculty preceptor is aware and concurs with the plan as stated in the body of this note and will attest to such by his/her cosignature. ATTENDING NOTE Patient seen and examined; agree with resident note. Plan to continue for a couple more days of IV abx, then anticipate DC to rehab. SHAHEEN ALSTON DO Jan 24, 2019 14:43 EZIO ROJAS DO Jan 26, 2019 01:19
[2019-01-24] MEDS: ACETAMINOPHEN 500 MG TAB PO SCH (21:06)
[2019-01-24] MEDS: ROSUVASTATIN 10 MG TAB (CRESTOR) PO SCH (21:08)
[2019-01-24] MEDS: TAMSULOSIN 0.4 MG CAP PO SCH (21:08)
[2019-01-24] MEDS: LATANOPROST 0.005% OPHTH SOLN 2.5 ML OU SCH (21:10)
[2019-01-24 22:00] VITALS: BP 113/57
[2019-01-24] MEDS: ALPRAZolam 0.25 MG TAB PO PRN (22:03)
[2019-01-25] MEDS: IPRATROPIUM 0.5MG/ALBUTEROL 2.5MG INH SOL UD 3ML (DUONEB)(J7620) NEB SCH ×4 (01:58→20:52)
[2019-01-25] MEDS: AMPICILLIN SOD 2 GM in D5W MINI-BAG PLUS 100 ML IV SCH ×6 (02:39→22:49)
[2019-01-25] MEDS: ACETAMINOPHEN TAB 650MG DOSE (2X325MG) PO PRN ×3 (04:39→19:36)
[2019-01-25] MEDS: ONDANSETRON 4 MG TAB (S0181) PO SCH ×5 (05:23→22:50)
[2019-01-25] MEDS: SODIUM CHLORIDE 0.9% INJ 10 ML SYR IV SCH ×2 (05:23→18:00)
[2019-01-25 06:00] VITALS: BP 115/63
[2019-01-25 06:31] LABS: HEMATOCRIT 28.6 % (42.0-52.0); HEMOGLOBIN 8.7 g/dl (13.5-17.5); MEAN CORPUSCULAR HEMOGLOBIN 27.8 pg (27.0-33.0); MEAN CORPUSCULAR HGB CONC 30.4 g/dl (32.0-36.5); MEAN CORPUSCULAR VOLUME 91.4 fl (80.0-96.0); PLATELET COUNT, AUTOMATED 322 10^3/uL (150-450); RED BLOOD COUNT 3.13 10^6/uL (4.30-6.10); WHITE BLOOD COUNT 9.8 10^3/uL (4.0-10.0)
[2019-01-25 06:50] LABS: CREATININE FOR GFR 1.5 MG/DL (0.70-1.30); GLOMERULAR FILTRATION RATE 48.6 (>42); POTASSIUM SERUM 5.4 MEQ/L (3.5-5.1)
[2019-01-25] MEDS: ASPIRIN 81 MG ENTERIC TAB PO SCH (10:03)
[2019-01-25] MEDS: OMEGA-3 1000MG CAPSULE PO SCH ×2 (10:03→22:50)
[2019-01-25] MEDS: APIXABAN 5 MG TAB (ELIQUIS) PO SCH ×2 (10:03→22:50)
[2019-01-25] MEDS: HumaLOG INSULIN (NovoLOG) PER UNIT SC SCH ×4 (10:03→21:00)
[2019-01-25] MEDS: OMEPRAZOLE 20 MG CAP PO SCH (10:04)
[2019-01-25] MEDS: FERROUS SULFATE 325MG TAB PO SCH (10:04)
[2019-01-25] MEDS: LACTOBACILLUS ACIDOPHILUS CAP (BACID) PO SCH ×2 (10:04→22:49)
[2019-01-25] MEDS: SERTRALINE HCL 50 MG TAB PO SCH (10:04)
[2019-01-25] MEDS: FUROSEMIDE 40 MG TAB PO SCH (10:05)
[2019-01-25] MEDS: VANCOMYCIN ORAL SOL 250MG/5ML ORAL SYRINGE PO SCH ×2 (10:06→22:49)
[2019-01-25] MEDS: POTASSIUM CHLORIDE 10 MEQ SR TABLET PO SCH (10:52)
[2019-01-25] MEDS: BISOPROLOL FUMARATE 5 MG TAB PO SCH (13:15)
[2019-01-25] MEDS: LISINOPRIL 10 MG TAB PO SCH ×2 (13:15→21:00)
[2019-01-25] MEDS: FINASTERIDE 5 MG TAB PO SCH (13:16)
[2019-01-25] MEDS: FENOFIBRATE 145 MG TAB (TRICOR) PO SCH (13:16)
[2019-01-25 14:00] VITALS: BP 128/62
--- NOTE | 2019-01-25 16:01 | IPNPDOC ---
Subjective Date Seen The patient was seen on 01/25/19. Subjective Chief Complaint/HPI No acute events overnight. Patient states he is not having loose stools anymore because he feels "cleaned out". He denies any complaints at this time. Objective Physical Examination General Exam: Positive: Alert, No Acute Distress Neck Exam: Positive: Supple, JVD Chest Exam: Positive: Clear to auscultation; Negative: Rhonchi, Wheezing Heart Exam: Positive: Rate Normal, Irregular Rhythm, Murmurs Abdomen Exam: Positive: BS Hyperactive, Soft (protuberant abdomen); Negative: Tenderness, Hepatospenomegaly, Mass Extremity Exam: Positive: Tenderness (Left shoulder with increased effusion. Warm, but not erythematous. Unable to raise sarm due to pain/frozen shoulder. tender and pain with passive ROM. ); Negative: Edema Skin Exam: Positive: Nl turgor and temperature Assessment /Plan Problems (1) Enterococcus faecalis infection Status: Chronic Response to Treatment: Improving Problem Text: 01/25- Patient continues to receive ampicillin with last dose scheduled for January 27. 01/24 Patient is stable on current medication. Also receiving prophylaxis for C. Diff infection. 01/22- PICC line was placed yesterday and is doing well so far. Will continue until 01/27 01/21- PICC line clotted off, staff was able to get peripheral access. Will atte mpt to place new PICC line either today or Thursday. 01/20 - Cont IV Ampicillin per Id recommendations - last dose January 2701/19 - ID following Recommend 4 weeks IV abx - Ampicillin D#19 (End date January 27) favor bowel source (possibly graft) seeded to L shoulder 01/15 Left shoulder arthroscopic irrigation and debridement, plus preoperative left shoulder aspiration-Mollison - cultures negative but already on abx so sterile culture. 01/13/19 Colonoscopy tubular adenoma-no obvious infectious source 01/03 ANURAG without obvious vegetation although thickening of the valves was noted. (Subacute bacterial endocarditis (SBE) prophylaxis is not recommended. Even though the thickening of the aortic valve could potentially represent signs) of infection, no definite vegetations are seen. 01/15/19 shoulder CX P 12/31, 01/01/19 BCX NG 05/02 colonoscopy with Eder with mtp sessile polpys + tubular adenomas, rec repeat scope in 6 months, pt has declined. 08/31 LLE endarterectomy with Bovine tissue - Ralph 02/28 RLE fem endarterectomy, R fem/pop bypass with porpraten graft - Ralph (2) Septic arthritis of shoulder, left Status: Acute Problem Text: 01/21- Not complaining of increased pain this AM 01/20 - c/o more pain and increased effusion om exam Ask ortho to re-visit - Dr. Farrar is aware and will come by to look at shoulder See above - Per ortho. (3) C. difficile colitis Status: Resolved Problem Text: 01/24- On vancomycin prophylaxis per ID. Bowel movements have been formed and soft recently. 01/18 - Vanco dose increased to BID while on abx - per ID 01/17 Pt with recurrence of loose stools overnight. Certainly risk for recurrence of C Diff as well as gastroenteritis with Norovirus active in the community now. Will check stool specimen, address with attending. He may need to transition form Vanco to Dificid. 01/16 remains on vanco 250 QD/probiotic px no evidence of recurrence (4) Anemia Status: Chronic Response to Treatment: Stable Problem Text: stable s/P EGD/Colonscopy 01/11 - Essentially normal without bleeding source. Tubular adenomas polyps x 2 (5) CKD (chronic kidney disease), stage III Status: Chronic Response to Treatment: Stable Problem Text: 01/17 Stable at baseline. Baseline Scr 1.4-1.6. (6) Diastolic CHF, chronic Status: Acute Response to Treatment: Stable Discussed With: Nurse, Drawer Upfitter, Patient Problem Text: 01/21- No signs of volume overload on exam. Patient's I/Os are net negative. Will continue 40 Lasix daily 01/20 - compensated on Lasix 40 daily and prinivil 01/17 appears compensated 01/13 Patient has rales on exam. Extra dose of lasix today. Monitor vitals. Repeat BMP in AM. 01/08: no edema, lungs ess clear 01/07/19:Appears well compensated on exam today 01/06/19: Appears compensated on exam today. Peripheral edema has improved. Patient with a negative -1285 from I's & O's. Renal function remains stable 01/05/19: Appears compensated today 01/03 Lasix 40 mg daily, appears compensated 12/31 [facility] [place] - Dr Grant has been consulted. Lasix IV 40 mg q12h, I remain un convinced that his I & Os are accurate, listing 600 in yesterday and 1200 out. Cont to monitor, Scr increased to 1.5 today, baseline is 1.6-1.7, he will be getting 2 units of blood today and an order for Lasix 20 mg between each unit was placed. 12/30 Lasx IV q12h, I + Os appear to be inaccurate, spoke to nursing, slight bump in Scr, monitor, anticipate changing to HD Lasix tomorrow, 40 mg daily. Enc BARRON diet. 12/29/18: Started on Lasix 40mg IV q 12 hours with a net negative of 2L, 1800 cc fluid restriction Chest Xray Impression: Probable interstitial infiltrates. (7) Atrial fibrillation Status: Chronic Response to Treatment: Stable Problem Text: 01/21- Continue eliquis, HR adequate for rate control 01/19/19 -Eliquis on hold since 01/07 due to acute anemia. Restart this and monitor Hgb. 01/08: stable, waiting for opinion from Dr. Schwartz as noted. 01/07/19: Rate controlled. Patient is on Eliquis. This will need to be held for colonoscopy. Dr. Schwartz will be in today to provide clearance for procedure 12/29/18: Rate controlled on Bisoprolol 5mg daily. Currently on Eliquis 5 mg po bid (8) DM2 (diabetes mellitus, type 2) Status: Chronic Response to Treatment: Stable Problem Text: 12/29/18: Managed with Lantus 22 units q hs and Humalog sliding scale outpatient. He is currently being covered with mealtime insulin only. He is not NPO, but his fasting BGs have been 78, 99 and he has only required 2 units of coverage. We will monitor and make adjustments in regimen accordingly. Plan/VTE VTE Prophylaxis Ordered?: Yes (Restarted Eliquis 01/19) Plan Therapy: PT Anticipated Discharge: Sub Acute Rehab (Rec STR at d/c.) VS, I&O, 24H, Fishbone Vital Signs/I&O Vital Signs Date Time Temp Pulse Resp B/P (MAP) Pulse Ox O2 Delivery O2 Flow Rate FiO2 01/25/19 14:00 98.5 100 18 128/62 (84) 93 2.0 01/20/19 01:16 Nasal Cannula I&O- Last 24 Hours up to 6 AM 01/25/19 06:00 Intake Total 1475 ml Output Total 2400 ml Balance -925 ml Laboratory Data 24H LABS Laboratory Tests 2 01/25/19 06:11: Nucleated Red Blood Cells % (auto) 0.2H, Anion Gap 7L, Glomerular Filtration Rate 48.6, Blood Urea Nitrogen 33H, Creatinine 1.50H, Sodium Level 133L, Potassium Level 5.4H, Chloride Level 100, Carbon Dioxide Level 26, Calcium Level 8.0L CBC/BMP Laboratory Tests 01/25/19 06:11 Red Blood Count 3.13 L, Mean Corpuscular Volume 91.4, Mean Corpuscular Hemoglobin 27.8, Mean Corpuscular Hemoglobin Concent 30.4 L, Red Cell Distribution Width 16.7 H, Calcium Level 8.0 L Microbiology Microbiology 01/15/19 Gram Stain - Final, Complete 01/15/19 Wound Culture - Final, Complete 01/15/19 Anaerobic Culture - Final, Complete GME ATTESTATION GME ATTESTATION My faculty preceptor for this patient encounter was physically present during the encounter and was fully available. All aspects of the patient interview, examination, medical decision making process, and medical care plan development were reviewed and approved by the faculty preceptor. The faculty preceptor is aware and concurs with the plan as stated in the body of this note and will attest to such by his/her cosignature. ATTENDING NOTE Patient seen and examined; agree with above, except patient told me that he had been having multiple small, formed stools in a day, some of which he strained for. Discussed case with Dr. Rudolph, who plans for him to have 2 weeks of PO abx and 3 weeks of PO vanco (C. diff prophylaxis) after he finishes up his IV abx. Patient is aware of plan to DC to rehab. SHAHEEN ALSTON DO Jan 25, 2019 16:01 EZIO ROJAS DO Jan 26, 2019 01:22
[2019-01-25] MEDS: LATANOPROST 0.005% OPHTH SOLN 2.5 ML OU SCH (21:00)
[2019-01-25 22:00] VITALS: BP 113/59
[2019-01-25] MEDS: ALPRAZolam 0.25 MG TAB PO PRN (22:49)
[2019-01-25] MEDS: TAMSULOSIN 0.4 MG CAP PO SCH (22:49)
[2019-01-25] MEDS: ROSUVASTATIN 10 MG TAB (CRESTOR) PO SCH (22:50)
[2019-01-25] MEDS: ACETAMINOPHEN 500 MG TAB PO SCH (22:50)
[2019-01-26] MEDS: IPRATROPIUM 0.5MG/ALBUTEROL 2.5MG INH SOL UD 3ML (DUONEB)(J7620) NEB SCH ×4 (02:00→21:59)
[2019-01-26] MEDS: AMPICILLIN SOD 2 GM in D5W MINI-BAG PLUS 100 ML IV SCH ×6 (02:13→21:38)
[2019-01-26] MEDS: ACETAMINOPHEN TAB 650MG DOSE (2X325MG) PO PRN ×3 (03:06→17:57)
[2019-01-26] MEDS: ONDANSETRON 4 MG TAB (S0181) PO SCH ×3 (05:37→17:57)
[2019-01-26] MEDS: SODIUM CHLORIDE 0.9% INJ 10 ML SYR IV SCH ×2 (05:37→17:57)
[2019-01-26 06:00] VITALS: BP 129/64
[2019-01-26 06:26] LABS: HEMATOCRIT 26.2 % (42.0-52.0); HEMOGLOBIN 7.9 g/dl (13.5-17.5); MEAN CORPUSCULAR HEMOGLOBIN 27.4 pg (27.0-33.0); MEAN CORPUSCULAR HGB CONC 30.2 g/dl (32.0-36.5); PLATELET COUNT, AUTOMATED 272 10^3/uL (150-450); RED BLOOD COUNT 2.88 10^6/uL (4.30-6.10); WHITE BLOOD COUNT 7.6 10^3/uL (4.0-10.0)
[2019-01-26 06:52] LABS: CALCIUM LEVEL 7.9 MG/DL (8.8-10.2); CREATININE FOR GFR 1.66 MG/DL (0.70-1.30); GLOMERULAR FILTRATION RATE 43.2 (>42); POTASSIUM SERUM 4.5 MEQ/L (3.5-5.1)
[2019-01-26] MEDS: HumaLOG INSULIN (NovoLOG) PER UNIT SC SCH ×4 (09:07→21:38)
[2019-01-26] MEDS: FERROUS SULFATE 325MG TAB PO SCH (09:08)
[2019-01-26] MEDS: APIXABAN 5 MG TAB (ELIQUIS) PO SCH ×2 (09:08→21:37)
[2019-01-26] MEDS: LACTOBACILLUS ACIDOPHILUS CAP (BACID) PO SCH ×2 (09:08→21:36)
[2019-01-26] MEDS: VANCOMYCIN ORAL SOL 250MG/5ML ORAL SYRINGE PO SCH ×2 (09:08→21:36)
[2019-01-26] MEDS: OMEPRAZOLE 20 MG CAP PO SCH (09:08)
[2019-01-26] MEDS: ASPIRIN 81 MG ENTERIC TAB PO SCH (09:09)
[2019-01-26] MEDS: FUROSEMIDE 40 MG TAB PO SCH (09:09)
[2019-01-26] MEDS: SERTRALINE HCL 50 MG TAB PO SCH (09:09)
[2019-01-26] MEDS: OMEGA-3 1000MG CAPSULE PO SCH ×2 (09:10→21:37)
[2019-01-26] MEDS: POTASSIUM CHLORIDE 10 MEQ SR TABLET PO SCH (09:10)
--- NOTE | 2019-01-26 11:37 | IPNPDOC ---
Subjective Date Seen The patient was seen on 01/26/19. Subjective Chief Complaint/HPI Patient lying in bed comfortably as I entered the room. He reports to feel tired, but overall he states he is feeling about his usual. Constitutional: Denies: Chills, Fever Pulmonary: Denies: Dyspnea, Cough Gastrointestinal: Denies: Nausea, Vomiting, Abdominal Pain, Diarrhea, Co nstipation Psych: Reports: Mood Normal Objective Physical Examination General Exam: Positive: Alert, No Acute Distress Neck Exam: Positive: Supple, JVD Chest Exam: Positive: Clear to auscultation; Negative: Rhonchi, Wheezing Heart Exam: Positive: Rate Normal, Irregular Rhythm, Murmurs Abdomen Exam: Positive: BS Hyperactive, Soft (protuberant abdomen); Negative: Tenderness, Hepatospenomegaly, Mass Extremity Exam: Positive: Tenderness (Left shoulder with increased effusion. Warm, but not erythematous. Unable to raise sarm due to pain/frozen shoulder. tender and pain with passive ROM. ); Negative: Edema Skin Exam: Positive: Nl turgor and temperature Assessment /Plan Problems (1) Enterococcus faecalis infection Status: Chronic Response to Treatment: Improving Problem Text: 01/26/19: Continue wit Ampicillin with last dose scheduled for tomorrow 01/27 01/25- Patient continues to receive ampicillin with last dose scheduled for January 27. 01/24 Patient is stable on current medication. Also receiving prophylaxis for C. Diff infection. 01/22- PICC line was placed yesterday and is doing well so far. Will continue until 01/27 01/21- PICC line clotted off, staff was able to get peripheral access. Will attempt to place new PICC line either today or Thursday. 01/20 - Cont IV Ampicillin per Id recommendations - last dose January 2701/19 - ID following Recommend 4 weeks IV abx - Ampicillin D#19 (End date January 27) favor bowel source (possibly graft) seeded to L shoulder 01/15 Left shoulder arthroscopic irrigation and debridement, plus preoperative left shoulder aspiration-Mollison - cultures negative but already on abx so sterile culture. 01/13/19 Colonoscopy tubular adenoma-no obvious infectious source 01/03 ANURAG without obvious vegetation although thickening of the valves was noted. (Subacute bacterial endocarditis (SBE) prophylaxis is not recommended. Even though the thickening of the aortic valve could potentially represent signs) of infection, no definite vegetations are seen. 01/15/19 shoulder CX P 12/31, 01/01/19 BCX NG 05/02 colonoscopy with Eder with mtp sessile polpys + tubular adenomas, rec repeat scope in 6 months, pt has declined. 08/31 LLE endarterectomy with Bovine tissue - Ralph 02/28 RLE fem endarterectomy, R fem/pop bypass with porpraten graft - Ralph (2) Anemia Status: Chronic Response to Treatment: Stable Problem Text: 01/26/19: Hgb this morning 7.8. Discussed transfusion with attending. We will repeat Hgb this afternoon. If remains <8.0 patient will be transfused 1 unit stable s/P EGD/Colonscopy 01/11 - Essentially normal without bleeding source. Tubular adenomas polyps x 2 (3) Septic arthritis of shoulder, left Status: Acute Problem Text: 01/26/19: Stable. No complaints of pain. Patient is status post left shoulder arthroscopic irrigation for septic arthritis. IV abx as above 01/21- Not complaining of increased pain this AM 01/20 - c/o more pain and increased effusion om exam Ask ortho to re-visit - Dr. Farrar is aware and will come by to look at shoulder See above - Per ortho. (4) C. difficile colitis Status: Resolved Problem Text: 01/24- On vancomycin prophylaxis per ID. Bowel movements have been formed and soft recently. 01/18 - Vanco dose increased to BID while on abx - per ID 01/17 Pt with recurrence of loose stools overnight. Certainly risk for recurrence of C Diff as well as gastroenteritis with Norovirus active in the community now. Will check stool specimen, address with attending. He may need to transition form Vanco to Dificid. 01/16 remains on vanco 250 QD/probiotic px no evidence of recurrence (5) CKD (chronic kidney disease), stage III Status: Chronic Response to Treatment: Stable Problem Text: 01/17 Stable at baseline. Baseline Scr 1.4-1.6. (6) Diastolic CHF, chronic Status: Acute Response to Treatment: Stable Discussed With: Nurse, Food Clerk, Patient Problem Text: 01/21- No signs of volume overload on exam. Patient's I/Os are net negative. Will continue 40 Lasix daily 01/20 - compensated on Lasix 40 daily and prinivil 01/17 appears compensated 01/13 Patient has rales on exam. Extra dose of lasix today. Monitor vitals. Repeat BMP in AM. 01/08: no edema, lungs ess clear 01/07/19:Appears well compensated on exam today 01/06/19: Appears compensated on exam today. Peripheral edema has improved. Patient with a negative -1285 from I's & O's. Renal function remains stable 01/05/19: Appears compensated today 01/03 Lasix 40 mg daily, appears compensated 12/31 [facility] [place] Grant has been consulted. Lasix IV 40 mg q12h, I remain unconvinced that his I & Os are accurate, listing 600 in yesterday and 1200 out. Cont to monitor, Scr increased to 1.5 today, baseline is 1.6-1.7, he will be getting 2 units of blood today and an order for Lasix 20 mg between each unit was placed. 12/30 Lasx IV q12h, I + Os appear to be inaccurate, spoke to nursing, slight bump in Scr, monitor, anticipate changing to HD Lasix tomorrow, 40 mg daily. Enc BARRON diet. 12/29/18: Started on Lasix 40mg IV q 12 hours with a net negative of 2L, 1800 cc fluid restriction Chest Xray Impression: Probable interstitial infiltrates. (7) Atrial fibrillation Status: Chronic Response to Treatment: Stable Problem Text: 01/21- Continue eliquis, HR adequate for rate control 01/19/19 -Eliquis on hold since 01/07 due to acute anemia. Restart this and monitor Hgb. 01/08: stable, waiting for opinion from Dr. Schwartz as noted. 01/07/19: Rate controlled. Patient is on Eliquis. This will need to be held for colonoscopy. Dr. Schwartz will be in today to provide clearance for procedure 12/29/18: Rate controlled on Bisoprolol 5mg daily. Currently on Eliquis 5 mg po bid (8) DM2 (diabetes mellitus, type 2) Status: Chronic Response to Treatment: Stable Problem Text: 12/29/18: Managed with Lantus 22 units q hs and Humalog sliding scale outpatient. He is currently being covered with mealtime insulin only. He is not NPO, but his fasting BGs have been 78, 99 and he has only required 2 units of coverage. We will monitor and make adjustments in regimen accordingly. Plan/VTE VTE Prophylaxis Ordered?: Yes (Restarted Eliquis 01/19) Plan Therapy: PT Anticipated Discharge: Sub Acute Rehab (Rec STR at d/c.) VS, I&O, 24H, Fishbone Vital Signs/I&O Vital Signs Date Time Temp Pulse Resp B/P (MAP) Pulse Ox O2 Delivery O2 Flow Rate FiO2 01/26/19 10:56 2.0 01/26/19 06:00 97.7 72 20 129/64 (85) 94 01/20/19 01:16 Nasal Cannula I&O- Last 24 Hours up to 6 AM 01/26/19 06:00 Intake Total 1100 ml Output Total 1000 ml Balance 100 ml Laboratory Data 24H LABS Laboratory Tests 2 01/26/19 06:09: Nucleated Red Blood Cells % (auto) 0.3H, Anion Gap 6L, Glomerular Filtration Rate 43.2, Blood Urea Nitrogen 34H, Creatinine 1.66H, Sodium Level 134L, Potassium Level 4.5, Chloride Level 98, Carbon Dioxide Level 30, Calcium Level 7.9L CBC/BMP Laboratory Tests 01/26/19 06:09 Red Blood Count 2.88 L, Mean Corpuscular Volume 91.0, Mean Corpuscular Hemoglobin 27.4, Mean Corpuscular Hemoglobin Concent 30.2 L, Red Cell Distribution Width 16.5 H, Calcium Level 7.9 L [facility]IN [facility] Jan 26, 2019 11:37
[2019-01-26] MEDS: BISOPROLOL FUMARATE 5 MG TAB PO SCH (12:00)
[2019-01-26] MEDS: FINASTERIDE 5 MG TAB PO SCH (12:37)
[2019-01-26] MEDS: FENOFIBRATE 145 MG TAB (TRICOR) PO SCH (12:37)
[2019-01-26] MEDS: LISINOPRIL 10 MG TAB PO SCH ×2 (12:37→21:37)
[2019-01-26 14:00] VITALS: BP 102/60
[2019-01-26 14:58] LABS: HEMATOCRIT 29.7 % (42.0-52.0); HEMOGLOBIN 8.9 g/dl (13.5-17.5); MEAN CORPUSCULAR HEMOGLOBIN 27.9 pg (27.0-33.0); MEAN CORPUSCULAR VOLUME 93.1 fl (80.0-96.0); PLATELET COUNT, AUTOMATED 283 10^3/uL (150-450); RED BLOOD COUNT 3.19 10^6/uL (4.30-6.10); WHITE BLOOD COUNT 7.7 10^3/uL (4.0-10.0)
[2019-01-26] MEDS: TAMSULOSIN 0.4 MG CAP PO SCH (21:37)
[2019-01-26] MEDS: ACETAMINOPHEN 500 MG TAB PO SCH (21:37)
[2019-01-26] MEDS: ROSUVASTATIN 10 MG TAB (CRESTOR) PO SCH (21:38)
[2019-01-26] MEDS: LATANOPROST 0.005% OPHTH SOLN 2.5 ML OU SCH (21:38)
[2019-01-26] MEDS: ALPRAZolam 0.25 MG TAB PO PRN (21:48)
[2019-01-26 22:00] VITALS: BP 120/68
[2019-01-27] VITALS (8 sets, daily range): BP systolic 110–128; BP diastolic 55–70
[2019-01-27] MEDS: IPRATROPIUM 0.5MG/ALBUTEROL 2.5MG INH SOL UD 3ML (DUONEB)(J7620) NEB SCH ×4 (01:15→20:22)
[2019-01-27] MEDS: ONDANSETRON 4 MG TAB (S0181) PO SCH ×5 (01:21→23:35)
[2019-01-27] MEDS: AMPICILLIN SOD 2 GM in D5W MINI-BAG PLUS 100 ML IV SCH ×6 (01:21→22:00)
[2019-01-27] MEDS: ACETAMINOPHEN TAB 650MG DOSE (2X325MG) PO PRN ×2 (04:39→12:35)
[2019-01-27] MEDS: SODIUM CHLORIDE 0.9% INJ 10 ML SYR IV SCH ×2 (05:50→17:24)
[2019-01-27 06:43] LABS: HEMATOCRIT 25.9 % (42.0-52.0); MEAN CORPUSCULAR HEMOGLOBIN 28.1 pg (27.0-33.0); MEAN CORPUSCULAR HGB CONC 30.9 g/dl (32.0-36.5); MEAN CORPUSCULAR VOLUME 90.9 fl (80.0-96.0); PLATELET COUNT, AUTOMATED 264 10^3/uL (150-450); RED BLOOD COUNT 2.85 10^6/uL (4.30-6.10); WHITE BLOOD COUNT 8.1 10^3/uL (4.0-10.0)
[2019-01-27 07:10] LABS: CALCIUM LEVEL 7.8 MG/DL (8.8-10.2); CREATININE FOR GFR 1.59 MG/DL (0.70-1.30); GLOMERULAR FILTRATION RATE 45.4 (>42); POTASSIUM SERUM 4.5 MEQ/L (3.5-5.1)
[2019-01-27] MEDS: HumaLOG INSULIN (NovoLOG) PER UNIT SC SCH ×4 (08:32→21:00)
--- NOTE | 2019-01-27 09:40 | IPNPDOC ---
Subjective Date Seen The patient was seen on 01/27/19. Subjective Chief Complaint/HPI Pt this morning reports persistent L shoulder pain. States that he is otherwise feeling alright. He has no new concerns today. He is aware of his anticipated transfer to [facility] tomorrow and willing to make this transition. General: Reports: Fatigue Constitutional: Denies: Chills, Fever ENT: Denies: Head Aches Pulmonary: Denies: Dyspnea, Cough Cardiovascular: Denies: Chest Pain, Palpitations Musculoskeletal: Reports: Shoulder Pain; Denies: Neck Pain Neurological: Reports: Weakness Psych: Reports: Mood Normal Objective Physical Examination General Exam: Positive: Alert, No Acute Distress ENT Exam: Positive: Mucous membr. moist/pink Neck Exam: Positive: Supple, JVD Chest Exam: Positive: Diminished; Negative: Clear to auscultation, Normal air movement, Rhonchi, Wheezing Heart Exam: Positive: Rate Normal, Irregular Rhythm, Murmurs Abdomen Exam: Positive: Normal bowel sounds, Soft (protuberant abdomen); Negative: Tenderness, Hepatospenomegaly, Mass Extremity Exam: Positive: Tenderness (L shoulder painful with any ROM); Negative: Edema Skin Exam: Positive: Nl turgor and temperature Neuro Exam: Positive: Normal Speech Psych Exam: Positive: Mood NL; Negative: Memory Intact Assessment /Plan Problems (1) Enterococcus faecalis infection Status: Chronic Response to Treatment: Improving Problem Text: 01/27 plan to administer Amp thru the day today then d/c. Will have completed 4 w IV abx. 01/26/19: Continue wit Ampicillin with last dose scheduled for tomorrow 01/27 01/25- Patient continues to receive ampicillin with last dose scheduled for January 27. 01/24 Patient is stable on current medication. Also receiving prophylaxis for C. Diff infection. 01/22- PICC line was placed yesterday and is doing well so far. Will continue until 01/27 01/21- PICC line clotted off, staff was able to get peripheral access. Will attempt to place new PICC line either today or Thursday. 01/20 - Cont IV Ampicillin per Id recommendations - last dose January 27 36 - ID following Recommend 4 weeks IV abx - Ampicillin D#19 (End date January 27) favor bowel source (possibly graft) seeded to L shoulder 3/2 Left shoulder arthroscopic irrigation and debridement, plus preoperative left shoulder aspiration-Charan - cultures negative but already on abx so sterile culture. 01/13/19 Colonoscopy tubular adenoma-no obvious infectious source 01/03 ANURAG without obvious vegetation although thickening of the valves was noted. (Subacute bacterial endocarditis (SBE) prophylaxis is not recommended. Even though the thickening of the aortic valve could potentially represent signs) of infection, no definite vegetations are seen. 01/15/19 shoulder CX P 12/31, 01/01/19 BCX NG 05/02 colonoscopy with Eder with mtp sessile polpys + tubular adenomas, rec repeat scope in 6 months, pt has declined. 08/31 LLE endarterectomy with Bovine tissue - Ralph 02/28 RLE fem endarterectomy, R fem/pop bypass with porpraten graft - Ralph (2) Anemia Status: Chronic Response to Treatment: Stable Problem Text: 01/27 Hgb 8, d/t poor exercise tolerance will transfuse 1 unit pRBCs today. 01/26/19: Hgb this morning 7.8. Discussed transfusion with attending. We will repeat Hgb this afternoon. If remains <8.0 patient will be transfused 1 unit stable s/P EGD/Colonscopy 01/11 - Essentially normal without bleeding source. Tubular adenomas polyps x 2 (3) Septic arthritis of shoulder, left Status: Acute Problem Text: 01/27 Chronic pain, pt reports no improvement in pain level since treatment for infection. 01/26/19: Stable. No complaints of pain. Patient is status post left shoulder arthroscopic irrigation for septic arthritis. IV abx as above 01/21- Not complaining of increased pain this AM 01/20 - c/o more pain and increased effusion om exam Ask ortho to re-visit - Dr. Farrar is aware and will come by to look at [facility] lder See above - Per ortho. (4) C. difficile colitis Status: Resolved Problem Text: 01/27 Vanco 250 mcg po BID, will need long taper 01/24- On vancomycin prophylaxis per ID. Bowel movements have been formed and soft recently. 01/18 - Vanco dose increased to BID while on abx - per ID 3/ Pt with recurrence of loose stools overnight. Certainly risk for recurrence of C Diff as well as gastroenteritis with Norovirus active in the community now. Will check stool specimen, address with attending. He may need to transition form Vanco to Dificid. 3/3 remains on vanco 250 QD/probiotic px no evidence of recurrence (5) CKD (chronic kidney disease), stage III Status: Chronic Response to Treatment: Stable Problem Text: 01/17 Stable at baseline. Baseline Scr 1.4-1.6. (6) Diastolic CHF, chronic Status: Chronic Response to Treatment: Stable Discussed With: Nurse, Sponge Diver, Patient Problem Text: 01/21- No signs of volume overload on exam. Patient's I/Os are net negative. Will continue 40 Lasix daily 01/20 - compensated on Lasix 40 daily and prinivil 01/17 appears compensated 01/13 Patient has rales on exam. Extra dose of lasix today. Monitor vitals. Repeat BMP in AM. 01/08: no edema, lungs ess clear 01/07/19:Appears well compensated on exam today 01/06/19: Appears compensated on exam today. Peripheral edema has improved. Patient with a negative -[phone] from I's & O's. Renal function remains stable 01/05/19: Appears compensated today 01/03 Lasix 40 mg daily, appears compensated 12/31 [facility] [place] Dr Grant has been consulted. Lasix IV 40 mg q12h, I remain unconvinced that his I & Os are accurate, listing 600 in yesterday and 1200 out. Cont to monitor, Scr increased to 1.5 today, baseline is 1.6-1.7, he will be getting 2 units of blood today and an order for Lasix 20 mg between each unit was placed. 12/30 Lasx IV q12h, I + Os appear to be inaccurate, spoke to nursing, slight bump in Scr, monitor, anticipate changing to HD Lasix tomorrow, 40 mg daily. Enc BARRON diet. 12/29/18: Started on Lasix 40mg IV q 12 hours with a net negative of 2L, 1800 cc fluid restriction Chest Xray Impression: Probable interstitial infiltrates. (7) Atrial fibrillation Status: Chronic Response to Treatment: Stable Problem Text: 01/21- Continue eliquis, HR adequate for rate control 01/19/19 -Eliquis on hold since 01/07 due to acute anemia. Restart this and monitor Hgb. 01/08: stable, waiting for opinion from Dr. Schwartz as noted. 01/07/19: Rate controlled. Patient is on Eliquis. This will need to be held for colonoscopy. Dr. Schwartz will be in today to provide clearance for procedure 12/29/18: Rate controlled on Bisoprolol 5mg daily. Currently on Eliquis 5 mg po bid (8) DM2 (diabetes mellitus, type 2) Status: Chronic Response to Treatment: Stable Problem Text: 12/29/18: Managed with Lantus 22 units q hs and Humalog sliding scale outpatient. He is currently being covered with mealtime insulin only. He is not NPO, but his fasting BGs have been 78, 99 and he has only required 2 units of coverage. We will monitor and make adjustments in regimen accordingly. Plan/VTE VTE Prophylaxis Ordered?: Yes (Restarted Eliquis 01/19) Plan Therapy: PT Anticipated Discharge: Sub Acute Rehab (Rec STR at d/c.) VS, I&O, 24H, Fishbone Vital Signs/I&O Vital Signs Date Time Temp Pulse Resp B/P (MAP) Pulse Ox O2 Delivery O2 Flow Rate FiO2 01/27/19 08:45 96.3 82 12 124/55 (78) 90 2.0 I&O- Last 24 Hours up to 6 AM 01/27/19 06:00 Intake Total 1520 ml Output Total 1000 ml Balance 520 ml Laboratory Data 24H LABS Laboratory Tests 2 01/26/19 11:30: Bedside Glucose (Misc Panel) 370H 01/26/19 14:53: Nucleated Red Blood Cells % (auto) 0.0 01/26/19 17:22: Bedside Glucose (Misc Panel) 256H 01/26/19 20:18: Bedside Glucose (Misc Panel) 273H 01/27/19 06:13: Nucleated Red Blood Cells % (auto) 0.0, Anion Gap 8, Glomerular Filtration Rate 45.4, Blood Urea Nitrogen 33H, Creatinine 1.59H, Sodium Level 134L, Potassium Level 4.5, Chloride Level 98, Carbon Dioxide Level 28, Calcium Level 7.8L CBC/BMP Laboratory Tests 01/26/19 14:53 Red Blood Count 3.19 L, Mean Corpuscular Volume 93.1, Mean Corpuscular Hemo globin 27.9, Mean Corpuscular Hemoglobin Concent 30.0 L, Red Cell Distribution Width 16.8 H 01/27/19 06:13 Red Blood Count 2.85 L, Mean Corpuscular Volume 90.9, Mean Corpuscular Hemoglobin 28.1, Mean Corpuscular Hemoglobin Concent 30.9 L, Red Cell Distribution Width 16.8 H, Calcium Level 7.8 L ZOEY GILBERT PA-C Jan 27, 2019 09:40
[2019-01-27] MEDS ORDERED: KLOR10TA76 PO (09:49)
[2019-01-27] MEDS ORDERED: FIRV50SO PO (09:49)
[2019-01-27] MEDS ORDERED: IPRA0.00 NEB (09:49)
[2019-01-27] MEDS ORDERED: ONDA4TAB5 PO (09:49)
[2019-01-27] MEDS: VANCOMYCIN ORAL SOL 250MG/5ML ORAL SYRINGE PO SCH ×2 (10:21→20:21)
[2019-01-27] MEDS: APIXABAN 5 MG TAB (ELIQUIS) PO SCH ×2 (10:22→20:21)
[2019-01-27] MEDS: FERROUS SULFATE 325MG TAB PO SCH (10:22)
[2019-01-27] MEDS: LACTOBACILLUS ACIDOPHILUS CAP (BACID) PO SCH ×2 (10:23→20:22)
[2019-01-27] MEDS: OMEPRAZOLE 20 MG CAP PO SCH (10:23)
[2019-01-27] MEDS: SERTRALINE HCL 50 MG TAB PO SCH (10:23)
[2019-01-27] MEDS: POTASSIUM CHLORIDE 10 MEQ SR TABLET PO SCH (10:23)
[2019-01-27] MEDS: ASPIRIN 81 MG ENTERIC TAB PO SCH (10:24)
[2019-01-27] MEDS: OMEGA-3 1000MG CAPSULE PO SCH ×2 (10:24→20:21)
[2019-01-27] MEDS: FUROSEMIDE 40 MG TAB PO SCH (10:24)
[2019-01-27] MEDS: BISOPROLOL FUMARATE 5 MG TAB PO SCH (12:15)
[2019-01-27] MEDS: LISINOPRIL 10 MG TAB PO SCH ×2 (12:15→20:21)
[2019-01-27] MEDS: FINASTERIDE 5 MG TAB PO SCH (12:15)
[2019-01-27] MEDS: FENOFIBRATE 145 MG TAB (TRICOR) PO SCH (12:15)
[2019-01-27] MEDS: ALPRAZolam 0.25 MG TAB PO PRN ×2 (12:35→20:20)
--- NOTE | 2019-01-27 15:22 | DSES ---
DATE OF ADMISSION: 12/30/2018 DATE OF ANTICIPATED DISCHARGE: 01/28/2019 PRIMARY CARE PROVIDER: JEWEL Cartwright ATTENDING TODAY: Kaitlin Gallagher DO HISTORY: This is a 73-year-old male patient who follows with me in the outpatient setting, who presented to [facility] after being home just a couple of weeks with shortness of breath and bilateral lower extremity swelling. He was admitted to the hospital for progressively worsening shortness of breath associated with lower extremity edema secondary to acute on chronic diastolic congestive heart failure as well as diarrhea. He had a recent history of Clostridium (C) difficile. During his hospitalization, he had repeat blood cultures that grew Enterococcus faecalis. Dr. Rudolph was consulted and saw the patient. The patient ultimately underwent echocardiogram and then transesophageal echocardiogram without any findings of a definitive vegetation, although concerning thickening of the aortic valve was noted. As a result of this benign echocardiogram, the patient also underwent colonoscopy with Dr. Ugalde. Patient was noted to have multiple polyps, severe diverticulosis. Polyps were removed. Recommendation was for repeat colonoscopy in 6 months secondary to the number of polyps; no mass was noted. The polyps pathology revealed tubular adenoma. Patient has a history of chronic left shoulder pain, which worsened during his hospitalization. He also was noted to have swelling. Orthopedic group was consulted for left shoulder effusion. He underwent left shoulder arthroscopic irrigation and debridement with Dr. Farrar, and cultures were obtained, which have thus far been benign, although the patient had been started on antibiotics prior to this being performed. He has had repeat blood cultures that also have been negative. His methicillin-resistant Staphylococcus aureus (MRSA) screen was negative as well. Per Dr. Rudolph, it was recommended that the patient undergo 4 weeks of IV antibiotics and, based upon cultures, was transitioned to ampicillin after initially receiving ceftriaxone. Today, 01/27/2019, is his last day of IV ampicillin; and at this point, the patient will be ready for discharge from the hospital as he remains medically stable. Also, during his hospitalization, he did develop recurrent loose stools secondary to his history of recent C. difficile. His vancomycin was resumed, and he has been on a slow taper since. He is on 250 mg by mouth twice a day and will need to continue taper of this over the next 2 weeks. He has been continued on a probiotic during his stay here as well. Patient has a history of chronic kidney disease. He also has a history of anemia. His hemoglobins during his hospitalization have been running into the 8s. He has trended down to 7 on a couple of occasions, requiring blood transfusion. This morning, he is 8 with exertional dyspnea and, therefore, I am going to give him an additional 1 unit of packed red blood cells today. He will continue to work with physical therapy. After speaking with physical therapy, he does quite well in terms of the distance that he can walk, but he needs numerous reminders in regard to safety; and therefore, there is concern of the patient returning home as he has consistently failed to recall safety reminders and is a fall risk as a result of that. His brother has been working closely with physical therapy (PT) and patient, and family services feels strongly as though the patient is not safe to return home and live independently as he has been. I would tend to agree with that at this point given the patient's decline over the course of the last several months and in conjunction with progression of dementia. HOSPITAL DISCHARGE DIAGNOSES: Include: 1. Septic arthritis of the left shoulder with Enterococcus faecalis bacteremia. 2. Clostridium difficile colitis. 3. Acute on chronic diastolic congestive heart failure. 4. Dementia. 5. Anemia of chronic disease. 6. Chronic kidney disease stage III. 7. Atrial fibrillation. 8. Diabetes mellitus type 2. DISCHARGE MEDICATIONS: Include: - DuoNeb inhaled every 6 hours and every 4 hours as needed for shortness of breath - vancomycin 250 mg by mouth twice a day - Zofran 4 mg every 6 hours - potassium chloride 40 mEq by mouth daily - acetaminophen 650 mg every 4 hours as needed for pain and 1000 mg before bed - Combivent one puff inhaled four times daily as needed for shortness of breath - Xanax 0.25 mg by mouth three times a day as needed for anxiety - Eliquis 5 mg by mouth twice a day - artificial tears each eye four times daily as needed for dry eyes - aspirin 81 mg daily - bisoprolol 5 mg daily - Colace 100 mg by mouth twice a day - fenofibrate 325 mg daily - Proscar 5 mg daily - fish oil 1000 mg by mouth daily - furosemide 40 mg daily - guaifenesin 600 mg by mouth every 12 hours as needed for congestion - Incruse Ellipta 62.5 mcg daily - insulin Lispro sliding scale before food, nightly - Xalatan 0.005% one drop each eye before bed - Lidoderm patch, two patches topically to bilateral shoulders - lisinopril 10 mg by mouth twice a day - omeprazole 20 mg by mouth daily - probiotic two tablets daily - Crestor 10 mg by mouth nightly - Advair Diskus 500/50 one puff twice a day - sertraline 50 mg daily - Flomax 0.4 mg by mouth nightly - trazodone 100 mg by mouth nightly DISCHARGE PLAN: Will be to followup with Dr. Bryan at [facility]. He should see Dr. Rudolph per her request. He should also be seen by the orthopedic group for chronic shoulder pain. I will see him if he is discharged from [facility] as an outpatient. ADDENDUM: DATE OF ADMISSION: 12/30/2018 DATE OF DISCHARGE: 01/28/2019 Please note, he was discharged to [facility] rehabilitation on 01/28/2019. His medications should be adjusted to reflect that he will continue amoxicillin 875 mg by mouth twice daily for 2 weeks, vancomycin 250 mg twice daily for 3 weeks; therefore, 1 week of vancomycin coverage after completion of antibiotics. Recommendations are per Dr. Rudolph. He should have 2-week followup with Dr. Rudolph. Complete blood count (CBC), basic, C-reactive protein (CRP), sedimentation (sed) rate should be performed weekly. Addendum dictated: ANGEL 01/28/2019 1413 Addendum transcribed: stephon 01/28/2019 [id number]
[2019-01-27] MEDS ORDERED: SENOKOT S TAB PO PRN (16:15)
[2019-01-27] MEDS: TAMSULOSIN 0.4 MG CAP PO SCH (20:21)
[2019-01-27] MEDS: ACETAMINOPHEN 500 MG TAB PO SCH (20:21)
[2019-01-27] MEDS: ROSUVASTATIN 10 MG TAB (CRESTOR) PO SCH (20:21)
[2019-01-27] MEDS: LATANOPROST 0.005% OPHTH SOLN 2.5 ML OU SCH (21:00)
--- NOTE | 2019-01-27 22:24 | IPN ---
DATE: 01/27/2019 Mr. Cruz is anxious to go to the [facility] for rehab. He has no complaints today except for difficulty with range of motion of the left shoulder. No nausea, vomiting or diarrhea. His shortness of breath is baseline. PHYSICAL EXAMINATION Left shoulder Steri-Strips were removed. The wound is healed. He still has a mild effusion and ecchymosis. There is no redness or purulence or drainage. He is not able to abduct the left shoulder. He is able to have his mild flexion at 20 degrees, passive abduction at 45 degrees and then the patient complains of pain. IMPRESSION 1. E faecalis bacteremia. The patient has finished 4 weeks of IV antibiotics from negative cultures for E faecalis bacteremia with negative transesophageal echocardiogram. No evidence of endocarditis. 2. Septic arthritis of the left shoulder by bone scan and evidence of synovial fluid aspiration. Again patient finished IV ampicillin for 4 weeks and incision and drainage. Since the patient has a persistent effusion, elevated sed rate and CRP will continue with two more weeks of by mouth amoxicillin 875 mg twice a day. 3. History of C difficile colitis. Since the patient at high risk of recurrence would suggest continuing vancomycin twice a day for 3 weeks which would be 1 week after antibiotics are discontinued. LABORATORY DATA White count is 8.1, hemoglobin 8, hematocrit 25.9, platelets 264. Last ESR was 86 on 01/23. Sodium 134, potassium 4.5, chloride 98, bicarb, 28, BUN 33, creatinine 1.59, glucose 300, calcium 7.8. Please call me in 2 weeks to followup on the patient at [facility]. Order CBC, basic CRP, sed rate weekly. Monitor for recurrent C difficile and recurrent infection.
[2019-01-28] MEDS: IPRATROPIUM 0.5MG/ALBUTEROL 2.5MG INH SOL UD 3ML (DUONEB)(J7620) NEB SCH ×2 (01:51→08:28)
[2019-01-28] MEDS: AMPICILLIN SOD 2 GM in D5W MINI-BAG PLUS 100 ML IV SCH ×3 (02:00→09:51)
[2019-01-28] MEDS: ALPRAZolam 0.25 MG TAB PO PRN (04:09)
[2019-01-28 06:00] VITALS: BP 143/86
[2019-01-28] MEDS: SODIUM CHLORIDE 0.9% INJ 10 ML SYR IV SCH (06:00)
[2019-01-28] MEDS: ONDANSETRON 4 MG TAB (S0181) PO SCH (06:00)
[2019-01-28 06:08] LABS: HEMATOCRIT 29.7 % (42.0-52.0); HEMOGLOBIN 9.1 g/dl (13.5-17.5); MEAN CORPUSCULAR HEMOGLOBIN 27.5 pg (27.0-33.0); MEAN CORPUSCULAR HGB CONC 30.6 g/dl (32.0-36.5); MEAN CORPUSCULAR VOLUME 89.7 fl (80.0-96.0); PLATELET COUNT, AUTOMATED 291 10^3/uL (150-450); RED BLOOD COUNT 3.31 10^6/uL (4.30-6.10); WHITE BLOOD COUNT 8.7 10^3/uL (4.0-10.0)
[2019-01-28 06:39] LABS: ERYTHROCYTE SEDIMENTATION RATE 70 mm/hr (0-20)
[2019-01-28] MEDS ORDERED: LEVE1INJ5 SC (07:59)
[2019-01-28] MEDS ORDERED: ACET1TAB55 PO (07:59)
[2019-01-28] MEDS: SERTRALINE HCL 50 MG TAB PO SCH (08:19)
[2019-01-28] MEDS: LACTOBACILLUS ACIDOPHILUS CAP (BACID) PO SCH (08:19)
[2019-01-28] MEDS: POTASSIUM CHLORIDE 10 MEQ SR TABLET PO SCH (08:19)
[2019-01-28] MEDS: OMEGA-3 1000MG CAPSULE PO SCH (08:19)
[2019-01-28] MEDS: ASPIRIN 81 MG ENTERIC TAB PO SCH (08:20)
[2019-01-28] MEDS: OMEPRAZOLE 20 MG CAP PO SCH (08:20)
[2019-01-28] MEDS: FUROSEMIDE 40 MG TAB PO SCH (08:20)
[2019-01-28] MEDS: APIXABAN 5 MG TAB (ELIQUIS) PO SCH (08:20)
[2019-01-28] MEDS: FERROUS SULFATE 325MG TAB PO SCH (08:20)
[2019-01-28] MEDS: ACETAMINOPHEN TAB 650MG DOSE (2X325MG) PO PRN (08:21)
[2019-01-28] MEDS: VANCOMYCIN ORAL SOL 250MG/5ML ORAL SYRINGE PO SCH (08:21)
[2019-01-28] MEDS: HumaLOG INSULIN (NovoLOG) PER UNIT SC SCH (08:23)
== END 2019-01-28 10:13 | DRG 510 ==
LOC: M ED 13:07 → EDBD 13:07 → M ED INP 16:02 → M PCU 12-29 13:16 → OBSVTOIN 12-30 18:57 → M PCU 12-30 21:21 → M MSPAV 01-12 13:58
PROVIDERS: ADMIT Internal Medicine; ATTEND Family Medicine
PROC: 30233N1 Transfusion of Nonautologous Red Blood Cells into Peripheral Vein, Percutaneous Approach (ICD-10-PCS; 2018-12-31)
PROC: 02HV33Z Insertion of Infusion Device into Superior Vena Cava, Percutaneous Approach (ICD-10-PCS; 2019-01-03)
PROC: 0DBK8ZX Excision of Ascending Colon, Via Natural or Artificial Opening Endoscopic, Diagnostic (ICD-10-PCS; 2019-01-11)
PROC: 0DJ08ZZ Inspection of Upper Intestinal Tract, Via Natural or Artificial Opening Endoscopic (ICD-10-PCS; 2019-01-11)
PROC: 0DBL8ZX Excision of Transverse Colon, Via Natural or Artificial Opening Endoscopic, Diagnostic (ICD-10-PCS; 2019-01-11)
PROC: 0R9K3ZX Drainage of Left Shoulder Joint, Percutaneous Approach, Diagnostic (ICD-10-PCS; 2019-01-15)
PROC: 0RBK4ZZ Excision of Left Shoulder Joint, Percutaneous Endoscopic Approach (ICD-10-PCS; principal; 2019-01-15 07:28)
PROC: 02HV33Z Insertion of Infusion Device into Superior Vena Cava, Percutaneous Approach (ICD-10-PCS; 2019-01-21)
DX: M00.812 Arthritis due to other bacteria, left shoulder (principal); I50.33 Acute on chronic diastolic (congestive) heart failure; R78.81 Bacteremia; I13.0 Hypertensive heart and chronic kidney disease with heart failure and stage 1 through stage 4 chronic kidney disease, or unspecified chronic kidney disease; J96.10 Chronic respiratory failure, unspecified whether with hypoxia or hypercapnia; A04.71 Enterocolitis due to Clostridium difficile, recurrent; K92.2 Gastrointestinal hemorrhage, unspecified; N18.3 Chronic kidney disease, stage 3 (moderate); J44.9 Chronic obstructive pulmonary disease, unspecified; D63.1 Anemia in chronic kidney disease; F03.90 Unspecified dementia, unspecified severity, without behavioral disturbance, psychotic disturbance, mood disturbance, and anxiety; I48.91 Unspecified atrial fibrillation; E11.9 Type 2 diabetes mellitus without complications; Z79.82 Long term (current) use of aspirin; Z79.899 Other long term (current) drug therapy; Z79.4 Long term (current) use of insulin; G47.00 Insomnia, unspecified; F32.9 Major depressive disorder, single episode, unspecified; F41.9 Anxiety disorder, unspecified; E78.5 Hyperlipidemia, unspecified; I25.10 Atherosclerotic heart disease of native coronary artery without angina pectoris; I25.2 Old myocardial infarction; Z95.1 Presence of aortocoronary bypass graft; Z88.2 Allergy status to sulfonamides; Z88.8 Allergy status to other drugs, medicaments and biological substances; Z87.891 Personal history of nicotine dependence; E87.6 Hypokalemia; Z66 Do not resuscitate; D50.0 Iron deficiency anemia secondary to blood loss (chronic); D12.4 Benign neoplasm of descending colon; D12.3 Benign neoplasm of transverse colon

== ENCOUNTER → 2019-02-03 | Outpatient (REF) ==
[~2019-02-03] MED LIST changes: +FIRV50SO PO; +IPRA0.00 NEB; +KLOR10TA76 PO; +LEVE1INJ5 SC; +ONDA4TAB5 PO
[2019-02-03 08:50] LABS: HEMATOCRIT 32.3 % (42.0-52.0); HEMOGLOBIN 9.8 g/dl (13.5-17.5); MEAN CORPUSCULAR HEMOGLOBIN 27.1 pg (27.0-33.0); MEAN CORPUSCULAR HGB CONC 30.3 g/dl (32.0-36.5); MEAN CORPUSCULAR VOLUME 89.5 fl (80.0-96.0); PLATELET COUNT, AUTOMATED 316 10^3/uL (150-450); RED BLOOD COUNT 3.61 10^6/uL (4.30-6.10); WHITE BLOOD COUNT 7.7 10^3/uL (4.0-10.0)
[2019-02-03 09:12] LABS: ERYTHROCYTE SEDIMENTATION RATE 66 mm/hr (0-20)
== END ==
LOC: SKLAB5 07:35
PROVIDERS: ATTEND Family Medicine
DX: M00.80 Arthritis due to other bacteria, unspecified joint (principal)

== ENCOUNTER → 2019-02-05 | Outpatient (REF) | payer MEDICARE ==
[2019-02-06 08:37] LABS: CALCIUM LEVEL 8.7 MG/DL (8.8-10.2); CREATININE FOR GFR 1.29 MG/DL (0.70-1.30); GLOMERULAR FILTRATION RATE 57.8 (>42); POTASSIUM SERUM 4.5 MEQ/L (3.5-5.1)
== END ==
LOC: SKLAB5 13:50
PROVIDERS: ATTEND Family Medicine
DX: F41.9 Anxiety disorder, unspecified (principal); R45.1 Restlessness and agitation

== ENCOUNTER → 2019-02-10 | Outpatient (REF) ==
[2019-02-10 08:41] LABS: HEMATOCRIT 34.5 % (42.0-52.0); HEMOGLOBIN 10.5 g/dl (13.5-17.5); MEAN CORPUSCULAR HEMOGLOBIN 27.3 pg (27.0-33.0); MEAN CORPUSCULAR HGB CONC 30.4 g/dl (32.0-36.5); MEAN CORPUSCULAR VOLUME 89.8 fl (80.0-96.0); PLATELET COUNT, AUTOMATED 334 10^3/uL (150-450); RED BLOOD COUNT 3.84 10^6/uL (4.30-6.10); WHITE BLOOD COUNT 6.5 10^3/uL (4.0-10.0)
[2019-02-10 09:15] LABS: ERYTHROCYTE SEDIMENTATION RATE 84 mm/hr (0-20)
== END ==
LOC: SKLAB5 08:25
PROVIDERS: ATTEND Family Medicine
DX: M13.812 Other specified arthritis, left shoulder (principal); N17.9 Acute kidney failure, unspecified

== ENCOUNTER → 2019-02-11 | Outpatient (REF) | payer MEDICARE ==
[2019-02-11 16:04] LABS: BASO % 0.1 % (0.0-1.0); EOS # 0.1 10^3/uL (0.0-0.50); EOS % 1.8 % (0.0-3.0); HEMATOCRIT 36.8 % (42.0-52.0); LYMPH # 0.6 10^3/uL (1.5-4.5); MEAN CORPUSCULAR HGB CONC 29.9 g/dl (32.0-36.5); MEAN CORPUSCULAR VOLUME 90.2 fl (80.0-96.0); MONO # 0.6 10^3/uL (0.0-0.8); MONO % 8.1 % (0.0-5.0); NEUTROPHILS # 5.8 10^3/uL (1.8-7.7); NEUTROPHILS % 81.3 % (36.0-66.0); PLATELET COUNT, AUTOMATED 381 10^3/uL (150-450); RED BLOOD COUNT 4.08 10^6/uL (4.30-6.10); WHITE BLOOD COUNT 7.1 10^3/uL (4.0-10.0)
[2019-02-11 16:38] LABS: ERYTHROCYTE SEDIMENTATION RATE 41 mm/hr (0-20)
[2019-02-15 00:09] LABS: Lyme Disease IgG/IgM Antibodie <0.91 ISR (0.00-0.90); Lyme Disease IgM Ab Quantitati <0.80 index (0.00-0.79)
== END ==
LOC: M LABDRAW1 15:48
PROVIDERS: ATTEND Physician Assistant
DX: M19.012 Primary osteoarthritis, left shoulder (principal); Z79.82 Long term (current) use of aspirin

== ENCOUNTER → 2019-02-17 | Outpatient (REF) ==
[~2019-02-17] MED LIST changes: -/ADVA50050; -/AMIO20TA; -/ATOR40TA; -/BISO10TA; -/FENO14TA PO; -/TAMS4CA; -/TAMS4CA PO; -/TIOT18INH; -/VERA40TA; -/WARF3TA; -ACET50TA PO; +ADVA1AER2; +AMIO1TAB; -ASPI1TAB PO; -ASPI81TA PO; +ASPI81TA26 PO; +CHIL1CHW5 PO; +COUM1TAB19; +CRES10TA PO; -CRES10TA32 PO; +FLOM0.4C39; +LATA0.0013 OU; -LATA5OPD OU; +LIPI1TAB2; +MAPA500T17 PO; -MIRA255PW PO; +OXYC1TAB23 PO; -PERCOCET PO; +POLY1POW4 PO; +SPIR1CAP; +TRIC145T19 PO; +VERA1TAB23; +ZEBE1TAB
[2019-02-17 09:00] LABS: HEMATOCRIT 35.7 % (42.0-52.0); HEMOGLOBIN 10.9 g/dl (13.5-17.5); MEAN CORPUSCULAR HEMOGLOBIN 26.8 pg (27.0-33.0); MEAN CORPUSCULAR HGB CONC 30.5 g/dl (32.0-36.5); MEAN CORPUSCULAR VOLUME 87.7 fl (80.0-96.0); PLATELET COUNT, AUTOMATED 379 10^3/uL (150-450); RED BLOOD COUNT 4.07 10^6/uL (4.30-6.10)
[2019-02-17 09:54] LABS: ERYTHROCYTE SEDIMENTATION RATE 78 mm/hr (0-20)
== END ==
LOC: SKLAB5 10:58
PROVIDERS: ATTEND Family Medicine
DX: I50.9 Heart failure, unspecified (principal)

== ENCOUNTER → 2019-03-09 | Outpatient (REF) | payer MEDICARE | LOC: SKLAB5 18:24 | PROVIDERS: ATTEND Family Medicine | DX: I50.9 Heart failure, unspecified (principal); Z13.1 Encounter for screening for diabetes mellitus ==

== ENCOUNTER → 2019-03-14 | Outpatient (REF) | payer MEDICARE ==
[2019-03-14 12:00] LABS: ACETAMINOPHEN LEVEL < 2.0 UG/ML (10.0-30.0); ALBUMIN 2.9 GM/DL (3.2-5.2); ALT/SGPT 16 U/L (12-78); BILIRUBIN,DIRECT 0.1 MG/DL (0.0-0.2); BILIRUBIN,TOTAL 0.3 MG/DL (0.2-1.0); TOTAL PROTEIN 6.8 GM/DL (6.4-8.2)
== END ==
LOC: SKLAB5 10:53
PROVIDERS: ATTEND Family Medicine
DX: I50.9 Heart failure, unspecified (principal); Z51.81 Encounter for therapeutic drug level monitoring
CPT/HCPCS: 36415; 80076; G0480

== ENCOUNTER → 2019-04-02 | Outpatient (REF) | payer MEDICARE ==
[~2019-04-02] MED LIST changes: +ACET-683 PO; +ACET65SU PR; +ALPR0.25 PO; +ASPI81CH48 PO; +DULC10SU2 PR; +ENEMENE22 PR; +MULTCAP PO; +TRAM50TA2 PO; +ZOFR4TAB16 PO
== END ==
LOC: SKLAB5 06:55
PROVIDERS: ATTEND Family Medicine
DX: I48.91 Unspecified atrial fibrillation (principal); D64.9 Anemia, unspecified; Z79.01 Long term (current) use of anticoagulants; F03.90 Unspecified dementia, unspecified severity, without behavioral disturbance, psychotic disturbance, mood disturbance, and anxiety; Z86.010 Personal history of colon polyps; Z86.19 Personal history of other infectious and parasitic diseases

== ENCOUNTER → 2019-04-04 | Outpatient (REF) | payer MEDICARE ==
[~2019-04-04] MED LIST changes: -ACET-683 PO; -ACET65SU PR; -ALPR0.25 PO; -ASPI81CH48 PO; -DULC10SU2 PR; -ENEMENE22 PR; -MULTCAP PO; -TRAM50TA2 PO; -ZOFR4TAB16 PO
[2019-04-04 15:20] LABS: HEMATOCRIT 35.3 % (42.0-52.0); HEMOGLOBIN 10.9 g/dl (13.5-17.5); MEAN CORPUSCULAR HEMOGLOBIN 27.2 pg (27.0-33.0); MEAN CORPUSCULAR HGB CONC 30.9 g/dl (32.0-36.5); PLATELET COUNT, AUTOMATED 264 10^3/uL (150-450); RED BLOOD COUNT 4.01 10^6/uL (4.30-6.10); WHITE BLOOD COUNT 7.8 10^3/uL (4.0-10.0)
[2019-04-04 15:42] LABS: ERYTHROCYTE SEDIMENTATION RATE 45 mm/hr (0-20)
== END ==
LOC: SKLAB5 11:03
PROVIDERS: ATTEND Family Medicine
DX: M25.519 Pain in unspecified shoulder (principal)

== ENCOUNTER 2019-04-09 13:51 | Inpatient (IN) | payer MEDICARE ==
[~2019-04-09] VITALS: Ht 167.6 cm; Wt 73.5 kg
[~2019-04-09 13:51] MED LIST changes: -ACET-683 PO; -ACET65SU PR; -ALPR0.25 PO; -ASPI81CH48 PO; -DULC10SU2 PR; -ENEMENE22 PR; -MULTCAP PO; -TRAM50TA2 PO; -TRAZ-160 PO; +TRAZ-252 PO; -ZOFR4TAB16 PO
[2019-04-09] MEDS ORDERED: IPRATROPIUM 0.5MG/ALBUTEROL 2.5MG INH SOL UD 3ML (DUONEB)(J7620) NEB ONE ×2 (14:15→15:45)
[2019-04-09] MEDS ORDERED: methylPREDNISolone INJ 125 MG/2 ML VIAL (J2930) IV ONE (14:15)
[2019-04-09] MEDS ORDERED: ALBUTEROL SULFATE 2.5 MG/0.5 ML INH NEB SOLN INH ONE (14:15)
[2019-04-09 14:23] LABS: ABG BASE EXCESS -2.1 (-2.0-2.0); ABG HCO3 21.3 MEQ/L (22.0-26.0); ABG PARTIAL PRESSURE CO2 32.1 mmHg (35.0-45.0); ABG PARTIAL PRESSURE O2 61.5 mmHg (75.0-100.0); ABG STANDARD HCO3 22.6 MEQ/L (22.0-26.0); ABG TOTAL CO2 22.3 MEQ/L (23.0-31.0)
[2019-04-09] MEDS ORDERED: ACET-683 PO (14:30)
[2019-04-09] MEDS ORDERED: MOM30SS PO (14:30)
[2019-04-09] MEDS ORDERED: DULC10SU2 PR (14:30)
[2019-04-09] MEDS ORDERED: TRAM50TA2 PO (14:30)
[2019-04-09] MEDS ORDERED: ACET1TAB55 PO (14:30)
[2019-04-09] MEDS ORDERED: ENEMENE22 PR (14:30)
[2019-04-09] MEDS ORDERED: LEVE1INJ5 SC (14:30)
[2019-04-09] MEDS ORDERED: MULTCAP PO (14:30)
[2019-04-09] MEDS ORDERED: ZOFR4TAB16 PO (14:30)
[2019-04-09] MEDS ORDERED: FURO40TA2 PO (14:30)
[2019-04-09] MEDS ORDERED: ASPI81CH48 PO (14:30)
[2019-04-09] MEDS ORDERED: ACET65SU PR (14:30)
[2019-04-09] MEDS ORDERED: ALPR0.25 PO (14:30)
[2019-04-09] MEDS ORDERED: IPRA0.00 INH (14:30)
[2019-04-09 14:48] LABS: HEMATOCRIT 33.9 % (42.0-52.0); HEMOGLOBIN 10.5 g/dl (13.5-17.5); MEAN CORPUSCULAR HEMOGLOBIN 26.9 pg (27.0-33.0); MEAN CORPUSCULAR VOLUME 86.9 fl (80.0-96.0); PLATELET COUNT, AUTOMATED 259 10^3/uL (150-450); WHITE BLOOD COUNT 7.3 10^3/uL (4.0-10.0)
[2019-04-09 14:57] LABS: INR 1.58; PROTHROMBIN TIME 19.1 SECONDS (12.1-14.4)
[2019-04-09 14:58] LABS: PARTIAL THROMBOPLASTIN TIME 53.4 SECONDS (25.4-37.6)
[2019-04-09 15:13] LABS: LYMPHOCYTES 5 % (16-52); MONOCYTES 4 % (0-8); NEUTROPHILS 83 % (35-75)
[2019-04-09 15:14] LABS: ANISOCYTOSIS 1+; PLATELET ESTIMATE NORMAL (NORMAL); POLYCHROMASIA 1+
[2019-04-09 15:26] LABS: INFLUENZA A AMPLIFICATION NEGATIVE (NEGATIVE); INFLUENZA B AMPLIFICATION NEGATIVE (NEGATIVE)
[2019-04-09 15:41] LABS: ALT/SGPT 24 U/L (12-78); BILIRUBIN,DIRECT 0.6 MG/DL (0.0-0.2); BILIRUBIN,TOTAL 1.2 MG/DL (0.2-1.0); BLOOD UREA NITROGEN 54 MG/DL (7-18); CALCIUM LEVEL 8.8 MG/DL (8.8-10.2); CARBON DIOXIDE LEVEL 25 MEQ/L (21-32); CHLORIDE LEVEL 101 MEQ/L (98-107); CPK CREATINE PHOSPHOKINASE 50 U/L (39-308); CREATININE FOR GFR 2.13 MG/DL (0.70-1.30); GLOMERULAR FILTRATION RATE 32.3 (>42); GLUCOSE, FASTING 211 MG/DL (70-100); LIPASE 100 U/L (73-393); NT-PRO BNP 9166 PG/ML (<450); POTASSIUM SERUM 5.5 MEQ/L (3.5-5.1); SODIUM LEVEL 134 MEQ/L (136-145); THYROXINE (T4) 9.9 UG/DL (4.5-12.0); TOTAL PROTEIN 6.7 GM/DL (6.4-8.2); TROPONIN I < 0.02 NG/ML (< 0.10)
[2019-04-09] MEDS ORDERED: LevoFLOXacin IV 750 MG in APPROPRIATE DILUENT 1 EA IV ONE (15:45)
[2019-04-09] MEDS ORDERED: FUROSEMIDE 100 MG/10 ML VIAL (J1940) IV ONE (16:00)
[2019-04-09 18:12] LABS: APPEARANCE, URINE CLEAR (CLEAR); BACTERIA, URINE AUTO NEGATIVE (NEGATIVE); BILIRUBIN, URINE AUTO NEGATIVE (NEGATIVE); BLOOD, URINE BLOOD 1+ (NEGATIVE); COLOR, URINE STRAW (YELLOW); GLUCOSE, URINE (UA) AUTO NEGATIVE (NEGATIVE); KETONE, URINE AUTO NEGATIVE (NEGATIVE); LEUKOCYTE ESTERASE, URINE AUTO NEGATIVE (NEGATIVE); MUCUS, URINE SMALL (NEGATIVE); NITRITE, URINE AUTO NEGATIVE (NEGATIVE); PROTEIN, URINE AUTO NEGATIVE (NEGATIVE); RBC, URINE AUTO 2 /HPF (0-3); SPECIFIC GRAVITY URINE AUTO 1.005 (1.002-1.035); SQUAMOUS EPITHELIAL CELL UR AU 0 /HPF (0-6); UROBILINOGEN, URINE AUTO 0.2 mg/dL (0.0-2.0); WBC, URINE AUTO 1 /HPF (0-3)
--- NOTE | 2019-04-09 19:39 | ECGEPIP ---
[facility] - ED Test Date: 2019-04-09 Pat Name: FATMATA GIL Department: Room: - Gender: Male Fuel Agent: ELADIA : [id number] Requested By: Elsa Richardson Order Number: [id number] Reading MD: Elsa Richardson Measurements Intervals [place] Rate: 114 P: SC: -1 QRS: 12 QRSD: 90 T: 8 QT: 289 QTc: 398 Interpretive Statements ATRIAL FIBRILLATION WITH RAPID VENTRICULAR RESPONSE PROBABLE INFERIOR MYOCARDIAL INFARCTION, PROBABLY OLD ANTEROSEPTAL ST T WAVE CHANGES RO ISCHEMIA CW 12/29/18 RATE INCREASED NEW T WAVE ABNORMALITY ANTEROSEPTAL LEADS - NONSPECIFIC VS ISCHEMIA CLINICALL CORRELATION ADVISED Electronically Signed on 04-09-2019 19:39:02 EDT by Elsa Richardson
[2019-04-09] MEDS ORDERED: HALOPERIDOL 5 MG/ML VIAL (J1630) As Ordered ONE (19:40)
[2019-04-09] MEDS: HALOPERIDOL 5 MG/ML VIAL (J1630) IM PRN ×2 (19:51→20:34)
[2019-04-09] MEDS: IPRATROPIUM 0.5MG/ALBUTEROL 2.5MG INH SOL UD 3ML (DUONEB)(J7620) NEB SCH (20:00)
[2019-04-09 20:03] VITALS: BP 98/54
[2019-04-09] MEDS: methylPREDNISolone INJ 125 MG/2 ML VIAL (J2930) IV SCH (20:34)
[2019-04-09] MEDS: TAMSULOSIN 0.4 MG CAP PO SCH (20:38)
[2019-04-09] MEDS: DOCUSATE SODIUM 100 MG CAP PO SCH (20:38)
[2019-04-09] MEDS: APIXABAN 2.5 MG TAB (ELIQUIS) PO SCH (20:38)
[2019-04-09] MEDS: BISOPROLOL FUM 2.5 MG PER 1/2TAB PO SCH (21:00)
[2019-04-09] MEDS ORDERED: LEVEMIR (INSULIN DETEMIR) 1 UNITS/0.01ML SC SCH (21:00)
[2019-04-09] MEDS ORDERED: traZODone 50 MG TAB PO SCH (21:00)
[2019-04-09] MEDS: VANCOMYCIN ORAL SOL 250MG/5ML ORAL SYRINGE PO SCH (21:30)
[2019-04-09] MEDS: ADVAIR HFA 230/21MCG INHALER INH SCH (21:55)
[2019-04-09] MEDS: FUROSEMIDE 40 MG/4 ML VIAL (J1940) IV SCH (23:22)
[2019-04-09 23:40] VITALS: BP 96/51
[2019-04-09 23:43] LABS: ALBUMIN 2.3 GM/DL (3.2-5.2); CALCIUM LEVEL 8.3 MG/DL (8.8-10.2); CREATININE FOR GFR 2.24 MG/DL (0.70-1.30); GLOMERULAR FILTRATION RATE 30.5 (>42); PHOSPHORUS LEVEL 3.9 MG/DL (2.5-4.9); POTASSIUM SERUM 5.8 MEQ/L (3.5-5.1)
[2019-04-10] VITALS (14 sets, daily range): BP systolic 78–107; BP diastolic 45–56; O2SAT 92–100
[2019-04-10] MEDS: VANCOMYCIN ORAL SOL 250MG/5ML ORAL SYRINGE PO SCH ×5 (00:24→23:29)
[2019-04-10 05:52] LABS: HEMATOCRIT 28.9 % (42.0-52.0); HEMOGLOBIN 9.1 g/dl (13.5-17.5); MEAN CORPUSCULAR HEMOGLOBIN 27.1 pg (27.0-33.0); MEAN CORPUSCULAR HGB CONC 31.5 g/dl (32.0-36.5); PLATELET COUNT, AUTOMATED 224 10^3/uL (150-450); RED BLOOD COUNT 3.36 10^6/uL (4.30-6.10); WHITE BLOOD COUNT 8.2 10^3/uL (4.0-10.0)
[2019-04-10] MEDS: FUROSEMIDE 40 MG/4 ML VIAL (J1940) IV SCH ×2 (06:00→12:00)
[2019-04-10 06:13] LABS: ALBUMIN 2.4 GM/DL (3.2-5.2); BILIRUBIN,TOTAL 0.6 MG/DL (0.2-1.0); CALCIUM LEVEL 8.8 MG/DL (8.8-10.2); CREATININE FOR GFR 2.38 MG/DL (0.70-1.30); GLOMERULAR FILTRATION RATE 28.4 (>42); TOTAL PROTEIN 6.5 GM/DL (6.4-8.2)
[2019-04-10] MEDS ORDERED: DEXTROSE 50% 50 ML SYRINGE IV PRN (08:00)
[2019-04-10] MEDS ORDERED: GLUCOSE 4 GM CHEW TABLET PO PRN (08:00)
[2019-04-10] MEDS ORDERED: GLUCAGON FOR INJ 1 MG VIAL (J1610) SC PRN (08:00)
[2019-04-10] MEDS: IPRATROPIUM 0.5MG/ALBUTEROL 2.5MG INH SOL UD 3ML (DUONEB)(J7620) NEB SCH ×4 (08:00→20:00)
[2019-04-10] MEDS: ADVAIR HFA 230/21MCG INHALER INH SCH ×2 (08:14→20:58)
[2019-04-10] MEDS: OMEPRAZOLE 20 MG CAP PO SCH (08:51)
[2019-04-10] MEDS: SERTRALINE HCL 50 MG TAB PO SCH (08:51)
[2019-04-10] MEDS: ASPIRIN 81 MG CHEW TABLET PO SCH (08:52)
[2019-04-10] MEDS: DOCUSATE SODIUM 100 MG CAP PO SCH ×2 (08:52→20:34)
[2019-04-10] MEDS: BISOPROLOL FUM 2.5 MG PER 1/2TAB PO SCH (08:53)
[2019-04-10] MEDS: APIXABAN 2.5 MG TAB (ELIQUIS) PO SCH ×2 (08:53→20:34)
[2019-04-10] MEDS: TAMSULOSIN 0.4 MG CAP PO SCH (08:54)
[2019-04-10] MEDS: HumaLOG INSULIN (NovoLOG) PER UNIT SC SCH ×4 (08:55→20:36)
[2019-04-10] MEDS: methylPREDNISolone INJ 125 MG/2 ML VIAL (J2930) IV SCH ×2 (08:59→20:34)
[2019-04-10] MEDS: traMADol 50 MG TAB PO PRN ×3 (09:11→22:09)
--- NOTE | 2019-04-10 10:04 | HPE ---
DATE OF ADMISSION: 04/09/2019 CHIEF COMPLAINT: Shortness of breath. HISTORY OF PRESENT ILLNESS: This is a 74-year-old white male patient of Dr. Pastor Bryan arriving from [facility] due to roughly five day history of increased dyspnea at rest. He states over that same period of time, he has had decreased urinary output and inability to urinate requiring straining. He denies any fevers, chills, cough, congestion. No abdominal pain, nausea, vomiting, diarrhea. He has had no new medications. PAST MEDICAL HISTORY AND HOSPITALIZATIONS: Last two 2018 for congestive heart failure. ILLNESSES: Coronary artery disease (CAD) status post coronary artery bypass graft (CABG). Chronic diastolic heart failure. Chronic obstructive pulmonary disease (COPD), moderate. Dementia moderate with sundowning, agitation. Hypertension essential. Chronic kidney disease stage III, baseline glomerular filtration rate of low 50s. Chronic hypoxic respiratory failure on oxygen 2 liters nasal cannula continuous. Chronic major depressive disorder. General anxiety disorder (JOSE J). Chronic insomnia. History of Clostridium difficile colitis. History of septic arthritis left shoulder status post IV ampicillin times four weeks with incision and drainage 2018. E. faecalis bacteremia status post ampicillin as above with negative ANURAG. No evidence of endocarditis. Benign prostatic hypertrophy (BPH) with history of urinary retention. Diabetes mellitus type 2, insulin requiring. Atrial fibrillation, chronic with history of rapid ventricular rate (RVR). Anemia, chronic, normocytic secondary to chronic kidney disease, iron deficiency. Peripheral vascular disease (PVD). Chronic sacral wound stage III. Moderate MR, mild AR by TTE 12/2018 Dr. Grant. SURGICAL HISTORY: Coronary artery bypass graft (CABG) times five 2007. Peripheral vascular disease (PVD) status post right femoral artery stent. Right femoral endarterectomy with femoral popliteal bypass graft and right femoral hernia repair 02/2015. Right lower extremity endarterectomy with bovine tissue August 2016. Patient current resides at [facility]. No nicotine use. No alcohol abuse. No elicit drug use. Patient states today that he wants everything done if needed, although in the past, he states he has wanted a DO NOT RESUSCITATE. REVIEW OF SYSTEMS: Constitutional: No weight loss. No vision. No diploma or scotoma. ENT: No epistaxis, hoarseness. Cardiovascular: No chest pain, no palpitations. Pulmonary: Dyspnea as above. GI: No odynophagia, melena, hematochezia. : Dysuria as above. No polydipsia, polyuria or . Chronic lumbar back pain. No paresthesia. PHYSICAL EXAMINATION: 98.2, 92, 18, 118/72, 94% on 3 liters nasal cannula. General: Patient is alert and oriented times three, no acute distress. Head is normocephalic, atraumatic. Ears: Tympanic membranes normal bilateral. Eyes clear conjunctivae. Clear pharynx. Neck without adenopathy or thyromegaly. Cardiovascular: Irregularly irregular rhythm with controlled rate. 2/6 systolic ejection murmur upper left sternal border. No S3 or S4. There is 6 cm of jugular venous distention (JVD). Respiratory: Decreased breath sounds bilateral. Bibasilar coarse rales. Abdomen: Positive bowel sounds, no hepatosplenomegaly. Enlarged palpable bladder, tender. Extremities with 2 mm pretibial pitting edema. Neuro: Nonfocal. While in the emergency department, bladder scan was performed consistent with a postvoid residual of 600 mL, therefore Chaidez catheter was placed yielding as of dictation 800 mL of urine. INVESTIGATIONS: WBC 7.3, hemoglobin and hematocrit 10.5, 33.9, platelets 259. Neutrophils 83%. Blood gas 7.44, 32, 61, 21, 91% on 2 liters nasal cannula. PT 19, PTT 53. Sodium 134, potassium 5.5, chloride 101, bicarbonate of 25, BUN 54, creatinine 2.1, glucose 211, lactic acid 1.5, total bilirubin 1.2, direct bilirubin 0.6, BNP 9166, in 12/2018 it was 4182. Lipase 100, TSH 1.0, troponin I less than 0.02. Chest x-ray shows bilateral lower lobe opacities with cephalization and moderate pulmonary vascular congestion. ASSESSMENT: 74-year-old white male with acute on chronic diastolic heart failure secondary to acute urinary retention secondary to benign prostatic hypertrophy +/- prostatitis with retention, also causing acute kidney injury I on chronic kidney disease stage III. PLAN: 1. Cardiovascular. Will place the patient on a gentle diurese of furosemide 40 mg IV every 6 hours for net negative 1 liter fluid balance daily. Follow serial EKG and electrolytes. Continue home dose bisoprolol and continue Apixaban but renally dosed at this point. Continue baby aspirin. Blood cultures have been taken given history of possible endocarditis and moderate MR. 2. Respiratory. Will place patient on DuoNebs every 6 straight and continue his home dose Advair, titrate oxygen to keep saturations 88-92. Placed on low dose IV Solu-Medrol. 3. Infectious disease. Patient received levofloxacin 750 IV times one which given his renal insufficiency at this point will be adequate dosing for 36-48 hours so it will be adequate coverage for possibly urinary pathogen +/- pneumonia. Blood cultures are drawn as above. Will place on low dose prophylactic vancomycin given high risk of recurrent Clostridium difficile colitis. 4. Endo. Will drop his Levemir dose. Given history of hypoglycemia will place on sliding scale Lispro insulin. 5. Renal. Patient will acute kidney injury stage I with secondary mild hyperkalemia, hyponatremia. This should correct with Chaidez placement and hold of his home dose jhon inhibitor and potassium and with the administration of insulin. Will follow. Will repeat renal panel at 2300 hours tonight. 6. Psych. Will continue his home dose Sertraline and trazodone. 7. Uro. Chaidez catheter was placed. Increase tamsulosin to 0.4 twice daily and continue finasteride, levofloxacin as above for possible prostatitis +/- urinary tract infection (UTI). 8. Heme. Anemia at baseline.
--- NOTE | 2019-04-10 11:42 | IPNPDOC ---
Subjective Date Seen The patient was seen on 04/10/19. Subjective Chief Complaint/HPI decreased dyspnea since admission General: Denies: Chills, Night Sweats Constitutional: Denies: Chills Eyes: Reports: Pain ENT: Denies: Head Aches Skin: Denies: Rash Pulmonary: Denies: Dyspnea Cardiovascular: Denies: Chest Pain, Palpitations Gastrointestinal: Reports: Nausea Genitourinary: Denies: Dysuria Objective Physical Examination General Exam: Positive: Alert, No Acute Distress Eye Exam: Positive: EOMI Neck Exam: Positive: JVD Chest Exam: Positive: Rales, Wheezing, Diminished Heart Exam: Positive: Rate Normal Telemetry: Positive: Atrial fibrillation Abdomen Exam: Positive: Normal bowel sounds Extremity Exam: Positive: Edema Neuro Exam: Positive: Normal Speech Psych Exam: Positive: Mood NL Assessment /Plan Problems (1) Acute on chronic diastolic CHF (congestive heart failure) Status: Acute Problem Text: precipitated by urinary retention 2 BPH/prostatitis -1.1L since admission 04/10 unable to diuresis more 2 SBP 80-90, held biso (has not received) and tamsul 0.4 BID (has han), + dig 250 x 1 as inotrope + AF rate control; continue BARRON/1500 FR; tc LD dopamine gtt (2) HAP (hospital-acquired pneumonia) Problem Text: D2 levo (RD 750 q48H)-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-remains on vanco px 04/09 BCX2 P 04/09 UCX P (3) COPD (chronic obstructive pulmonary disease) Status: Chronic Problem Text: remains on SM 60 BID, Duonebs q6H (4) Acute respiratory failure with hypoxia Status: Acute Problem Text: 2 acute CHF +/- PN goal SaO2 88-92% stable on HF NC (5) Paroxysmal atrial fibrillation Status: Chronic Problem Text: apixiban RD for AC dig for RC (6) Depression Status: Chronic Problem Text: c mild dementia/acute delirium remains on HD sert/traz 100 QHS/alpraz 0.25 q6H prn 04/06 halo IM 2 x 2 made MORE agitated (7) TONE (acute kidney injury) Status: Acute Problem Text: c hyperK 04/10 cr to 2.4 (from 2.2) K stable down to 5.0 (5.8) 2 acute retention/ACEI/hypotension (8) Anemia Status: Chronic Problem Text: stable hgb 9-10 caution on asa/apix 04/10 9.1 (9) Urinary retention due to benign prostatic hyperplasia Status: Acute Problem Text: han in place since 04/09 04/10 held tamsul 2 hypotension, remains on levo, finast (10) Hypotension Status: Acute Problem Text: favor 2 septic shock patient remains DNR/DNI (11) Dyspepsia Status: Chronic Problem Text: 04/10 increased favor 2 meds/hypotension; + sulcraf to HD omep 40 (12) DM2 (diabetes mellitus, type 2) Status: Chronic Problem Text: Continues HD det 42 QHS c SSLI (13) DNR (do not resuscitate) Status: Chronic Problem Text: 04/10/19 reaffirms DNR/DNI Plan/VTE VTE Prophylaxis Ordered?: Yes VS, I&O, 24H, Fishbone Vital Signs/I&O Vital Signs Date Time Temp Pulse Resp B/P (MAP) Pulse Ox O2 Delivery O2 Flow Rate FiO2 04/10/19 09:11 18 04/10/19 08:53 71 90/51 04/10/19 07:51 97.8 96 6.0 04/10/19 00:48 Nasal Cannula I&O- Last 24 Hours up to 6 AM 04/10/19 06:00 Intake Total 240 ml Output Total 1300 ml Balance -1060 ml Laboratory Data 24H LABS Laboratory Tests 2 04/09/19 14:03: Blood Gas Bicarbonate Standard 22.6, Arterial Blood pH 7.440, Arterial Blood Partial Pressure CO2 32.1L, Arterial Blood Partial Pressure O2 61.5L, Arterial Blood Total CO2 22.3L, Arterial Blood HCO3 21.3L, Arterial Blood Base Excess - 2.1L, Arterial Blood Oxygen Saturation 91.0L 04/09/19 14:25: Nucleated Red Blood Cells % (auto) 0.0, Neutrophils 83H, Band Neutrophils 8, Lymphocytes (Manual) 5L, Monocytes (Manual) 4, Platelet Estimate NORMAL, Polychromasia 1+, Anisocytosis 1+, Prothrombin Time 19.1H, Prothromb Time International Ratio 1.58, Activated Partial Thromboplast Time 53.4H, Anion Gap 8, Glomerular Filtration Rate 32.3L, Calcium Level 8.8, Aspartate Amino Transf (AST/SGOT) 17, Alanine Aminotransferase (ALT/SGPT) 24, Alkaline Phosphatase 71, Total Bilirubin 1.2H, Direct Bilirubin 0.6H, Total Creatine Kinase 50, Creatine Kinase MB 2.0, Creatine Kinase MB Relative Index 3.80, Troponin I < 0.02, GD-[id number]-Type Natriuretic Peptide 9166H, Total Protein 6.7, Albumin 3.0L, Albumin/Globulin Ratio 0.81L, Lipase 100, Thyroid Stimulating Hormone (TSH) 1.010, Free Thyroxine 1.30, Thyroxine (T4) 9.9 04/09/19 14:26: Lactic Acid Level 1.5, Influenza Type A (RT-PCR) NEGATIVE, Influenza Type B (RT- PCR) NEGATIVE 04/09/19 17:52: Urine Appearance CLEAR, Urine Color STRAW, Urine pH 5.0, Urine Specific [place] 1.005, Urine Protein NEGATIVE, Urine Glucose (UA) NEGATIVE, Urine Ketones NEGATIVE, Urine Urobilinogen 0.2, Urine Bilirubin NEGATIVE, Urine Leukocyte Esterase NEGATIVE, Urine Blood 1+H, Urine Nitrite NEGATIVE, Urine WBC (Auto) 1, Urine RBC (Auto) 2, Urine Hyaline Casts (Auto) 0, Urine Bacteria (Auto) NEGATIVE, Urine Squamous Epithelial Cells 0, Urine Mucus (Auto) SMALL, Urine Sperm (Auto) 04/09/19 21:57: Bedside Glucose (Misc Panel) 347H 04/09/19 22:47: Blood Urea Nitrogen 58H, Creatinine 2.24H, Sodium Level 132L, Potassium Level 5.8H, Chloride Level 103, Carbon Dioxide Level 20L, Anion Gap 9, Glomerular Filtration Rate 30.5L, Calcium Level 8.3L, Phosphorus Level 3.9, Albumin 2.3#L 04/10/19 05:37: Blood Urea Nitrogen 63H, Creatinine 2.38H, Sodium Level 130L, Potassium Level 5.0, Chloride Level 98, Carbon Dioxide Level 23, Anion Gap 9, Glomerular Filtration Rate 28.4L, Calcium Level 8.8, Albumin 2.4L, Nucleated Red Blood Cells % (auto) 0.0, Aspartate Amino Transf (AST/SGOT) 11, Alanine Aminotransferase (ALT/SGPT) 15, Alkaline Phosphatase 54, Total Bilirubin 0.6, Total Protein 6.5, Albumin/Globulin Ratio 0.59L CBC/BMP Laboratory Tests 04/09/19 14:25 Red Blood Count 3.90 L, Mean Corpuscular Volume 86.9, Mean Corpuscular Hemoglobin 26.9 L, Mean Corpuscular Hemoglobin Concent 31.0 L, Red Cell Distribution Width 20.1 H 04/09/19 22:47 Anion Gap 9 04/10/19 05:37 Red Blood Count 3.36 L, Mean Corpuscular Volume 86.0, Mean Corpuscular Hemoglobin 27.1, Mean Corpuscular Hemoglobin Concent 31.5 L, Red Cell Distribution Width 19.9 H, Calcium Level 8.8, Aspartate Amino Transf (AST/SGOT) 11, Alanine Aminotransferase (ALT/SGPT) 15, Alkaline Phosphatase 54, Total Bilirubin 0.6, Total Protein 6.5, Albumin 2.4 L Microbiology Microbiology 04/09/19 Blood Culture, Received Pending 04/09/19 Blood Culture, Received Pending 04/09/19 Urine Culture, Received Pending Cheo Lang M.D. April 10, 2019 11:42
[2019-04-10] MEDS ORDERED: ALPRAZolam 0.25 MG TAB PO SCH (12:00)
[2019-04-10] MEDS ORDERED: DIGOXIN 0.25 MG TAB PO ONE (12:00)
[2019-04-10] MEDS: FINASTERIDE 5 MG TAB PO SCH (12:28)
[2019-04-10] MEDS: SUCRALFATE 1 GM TAB PO SCH ×3 (13:22→20:35)
[2019-04-10] MEDS: ALPRAZolam 0.25 MG TAB PO PRN ×2 (13:22→20:34)
[2019-04-10] MEDS: traZODone 100 MG TAB PO SCH (20:35)
[2019-04-10] MEDS: LEVEMIR (INSULIN DETEMIR) 1 UNITS/0.01ML SC SCH (20:35)
[2019-04-11] VITALS (22 sets, daily range): BP systolic 105–126; BP diastolic 50–67; O2SAT 88–98
[2019-04-11] MEDS: ALPRAZolam 0.25 MG TAB PO PRN ×3 (04:47→21:43)
[2019-04-11 05:23] LABS: HEMATOCRIT 27.5 % (42.0-52.0); HEMOGLOBIN 8.5 g/dl (13.5-17.5); LYMPH # 0.4 10^3/uL (1.5-4.5); LYMPH % 4.7 % (24.0-44.0); MEAN CORPUSCULAR HEMOGLOBIN 26.3 pg (27.0-33.0); MEAN CORPUSCULAR HGB CONC 30.9 g/dl (32.0-36.5); MEAN CORPUSCULAR VOLUME 85.1 fl (80.0-96.0); MONO # 0.3 10^3/uL (0.0-0.8); MONO % 3.9 % (0.0-5.0); NEUTROPHILS % 89.9 % (36.0-66.0); PLATELET COUNT, AUTOMATED 268 10^3/uL (150-450); RED BLOOD COUNT 3.23 10^6/uL (4.30-6.10); WHITE BLOOD COUNT 7.8 10^3/uL (4.0-10.0)
[2019-04-11 05:57] LABS: ALBUMIN 2.2 GM/DL (3.2-5.2); CALCIUM LEVEL 7.6 MG/DL (8.8-10.2); CREATININE FOR GFR 3.27 MG/DL (0.70-1.30); GLOMERULAR FILTRATION RATE 19.7 (>42); MAGNESIUM LEVEL 2.6 MG/DL (1.8-2.4); PHOSPHORUS LEVEL 5.5 MG/DL (2.5-4.9); POTASSIUM SERUM 5.6 MEQ/L (3.5-5.1)
[2019-04-11] MEDS: traMADol 50 MG TAB PO PRN ×2 (06:28→21:44)
[2019-04-11] MEDS: VANCOMYCIN ORAL SOL 250MG/5ML ORAL SYRINGE PO SCH ×3 (06:28→17:26)
[2019-04-11] MEDS: ADVAIR HFA 230/21MCG INHALER INH SCH ×2 (07:37→20:32)
[2019-04-11] MEDS: IPRATROPIUM 0.5MG/ALBUTEROL 2.5MG INH SOL UD 3ML (DUONEB)(J7620) NEB SCH ×4 (07:38→20:00)
[2019-04-11] MEDS: methylPREDNISolone INJ 125 MG/2 ML VIAL (J2930) IV SCH ×2 (08:02→21:44)
[2019-04-11] MEDS: ASPIRIN 81 MG CHEW TABLET PO SCH (08:03)
[2019-04-11] MEDS: SERTRALINE HCL 50 MG TAB PO SCH (08:04)
[2019-04-11] MEDS: HumaLOG INSULIN (NovoLOG) PER UNIT SC SCH ×4 (08:04→21:51)
[2019-04-11] MEDS: DOCUSATE SODIUM 100 MG CAP PO SCH ×2 (08:04→21:43)
[2019-04-11] MEDS: OMEPRAZOLE 20 MG CAP PO SCH (08:04)
[2019-04-11] MEDS: SUCRALFATE 1 GM TAB PO SCH ×2 (08:04→12:43)
[2019-04-11] MEDS: APIXABAN 2.5 MG TAB (ELIQUIS) PO SCH ×2 (08:04→21:43)
[2019-04-11] MEDS ORDERED: BISACODYL 10 MG SUPP PR PRN (08:30)
--- NOTE | 2019-04-11 08:37 | IPNPDOC ---
Subjective Date Seen The patient was seen on 04/11/19. Subjective Chief Complaint/HPI c/o no BM x 5 days - passing gas. Breathing is "not any better". Coughing for the past couple of days. Pulmonary: Reports: Dyspnea, Cough Cardiovascular: Denies: Chest Pain, Palpitations Gastrointestinal: Reports: Constipation; Denies: Nausea, Vomiting, Abdominal Pain, Diarrhea Genitourinary: Reports: Retention (han inplace as of 04/09) Objective Physical Examination General Exam: Positive: Alert, Mild Distress (SOB at rest with cough) Eye Exam: Positive: EOMI Neck Exam: Positive: JVD Chest Exam: Positive: Rales, Wheezing, Diminished Heart Exam: Positive: Rate Normal, Irregular Rhythm Telemetry: Positive: Atrial fibrillation Abdomen Exam: Positive: Normal bowel sounds, Other (disteded, non-tender) Extremity Exam: Positive: Edema (2+ BL) Neuro Exam: Positive: Normal Speech Psych Exam: Positive: Mood NL Assessment /Plan Problems (1) TONE (acute kidney injury) Status: Acute Problem Text: 04/11 - Cre up to 3.57. K+ back up to 5.6 TONE originally thought to be related in part to retention from BPH, but no imp rovement with han in place. Clinically SKi seems secondary to Decompensated CHF, but developed hypotension with diuretics. CHAITANYA held Give Veltass x1 for hyperkalemia consult Nephrology - has followed with Dr. Rocío Chinchilla in past. 04/10 cr to 2.4 (from 2.2) K stable down to 5.0 (5.8) 2 acute retention/ACEI/hypotension (2) Acute on chronic diastolic CHF (congestive heart failure) Status: Acute Problem Text: 04/11 - Still appears decompensated. 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-remains on vanco px 04/09 BCX2 P 04/09 UCX P (4) COPD (chronic obstructive pulmonary disease) Status: Chronic Problem Text: remains on SM 60 BID, Duonebs q6H (5) Acute respiratory failure with hypoxia Status: Acute Problem Text: 2 acute CHF +/- PN goal SaO2 88-92% stable on HF NC (6) Paroxysmal atrial fibrillation Status: Chronic Problem Text: apixiban RD for AC dig for RC Bisoprolol held due to hypotension (7) Depression Status: Chronic Problem Text: c mild dementia/acute delirium remains on HD sert/traz 100 QHS/alpraz 0.25 q6H prn 04/06 halo IM 2 x 2 made MORE agitated (8) Anemia Status: Chronic Problem Text: 04/11 - hgb down slightly - likely secondary to fluid retention and TONE Monitor trend with diuresis caution on asa/apix 04/10 9.1 (9) Urinary retention due to benign prostatic hyperplasia Status: Acute Problem Text: han in place since 04/09 04/10 held tamsul 2 hypotension, remains on levo, finast (10) Hypotension Status: Acute Problem Text: favor 2 septic shock patient remains DNR/DNI (11) Dyspepsia Status: Chronic Problem Text: 04/10 increased favor 2 meds/hypotension; + sulcraf to HD omep 40 (12) DM2 (diabetes mellitus, type 2) Status: Chronic Problem Text: Continues HD det 42 QHS c SSLI (13) DNR (do not resuscitate) Status: Chronic Problem Text: 04/10/19 reaffirms DNR/DNI (14) Constipation Status: Chronic Problem Text: No BM x 5 days - Add bowel care Miralax, Senna S and dulc supp Plan/VTE VTE Prophylaxis Ordered?: Yes Plan Patient seen and examined. Case reviewed with RPA who documented encounter. Disposition [facility] once stable VS, I&O, 24H, Fishbone Vital Signs/I&O Vital Signs Date Time Temp Pulse Resp B/P (MAP) Pulse Ox O2 Delivery O2 Flow Rate FiO2 04/11/19 07:36 97.0 78 20 113/57 (75) 95 4.0 04/10/19 18:00 Nasal Cannula I&O- Last 24 Hours up to 6 AM 04/11/19 06:00 Intake Total 720 ml Output Total 800 ml Balance -80 ml Laboratory Data 24H LABS Laboratory Tests 2 04/10/19 11:36: Bedside Glucose (Misc Panel) 249H 04/10/19 15:47: Bedside Glucose (Misc Panel) 302H 04/10/19 17:21: Bedside Glucose (Misc Panel) 330H 04/10/19 20:26: Bedside Glucose (Misc Panel) 360H 04/11/19 04:55: Immature Granulocyte % (Auto) 1.5, White Blood Count 7.8, Red Blood Count 3.23L, Hemoglobin 8.5L, Hematocrit 27.5L, Mean Corpuscular Volume 85.1, Mean Corpuscular Hemoglobin 26.3L, Mean Corpuscular Hemoglobin Concent 30.9L, Red Cell Distribution Width 20.0H, Platelet Count 268, Neutrophils (%) (Auto) 89.9H, Lymphocytes (%) (Auto) 4.7L, Monocytes (%) (Auto) 3.9, Eosinophils (%) (Auto) 0.0, Basophils (%) (Auto) 0.0, Neutrophils # (Auto) 7.0, Lymphocytes # (Auto) 0.4L, Monocytes # (Auto) 0.3, Eosinophils # (Auto) 0.0, Basophils # (Auto) 0.0, Nucleated Red Blood Cells % (auto) 0.0, Blood Urea Nitrogen 103#H, Creatinine 3.27H, Sodium Level 126L, Potassium Level 5.6H, Chloride Level 95L, Carbon Dioxide Level 22, Anion Gap 9, Glomerular Filtration Rate 19.7L, Calcium Level 7.6L, Phosphorus Level 5.5#H, Magnesium Level 2.6H, IY-Nvj-F-Type Natriuretic Peptide 8823H, Albumin 2.2L CBC/BMP Laboratory Tests 04/11/19 04:55 Red Blood Count 3.23 L, Mean Corpuscular Volume 85.1, Mean Corpuscular Hemoglobin 26.3 L, Mean Corpuscular Hemoglobin Concent 30.9 L, Red Cell Distribution Width 20.0 H, Neutrophils (%) (Auto) 89.9 H, Lymphocytes (%) (Auto) 4.7 L, Monocytes (%) (Auto) 3.9, Eosinophils (%) (Auto) 0.0, Basophils (%) (Au to) 0.0, Neutrophils # (Auto) 7.0, Lymphocytes # (Auto) 0.4 L, Monocytes # (Auto) 0.3, Eosinophils # (Auto) 0.0, Basophils # (Auto) 0.0, Anion Gap 9 Microbiology Microbiology 04/09/19 Blood Culture - Preliminary, Resulted No growth after 24 hours . All specim... 04/09/19 Blood Culture - Preliminary, Resulted No growth after 24 hours . All specim... 04/09/19 Urine Culture - Final, Complete RJ PALMER PA-C April 11, 2019 08:37 Pastor Bryan M.D. April 11, 2019 14:57
[2019-04-11] MEDS: MIRALAX *UNIT DOSE* 17GM PACKET PO SCH (09:39)
[2019-04-11] MEDS ORDERED: PATIROMER SORBITEX CALCIUM 8.4 GM POWDER PACKET (VELTASSA) PO ONE (12:00)
[2019-04-11] MEDS: FINASTERIDE 5 MG TAB PO SCH (12:43)
[2019-04-11] MEDS ORDERED: NS 1,000 ML IV SCH (13:15)
[2019-04-11] MEDS ORDERED: NS 250 ML IV ONE (13:15)
--- NOTE | 2019-04-11 14:15 | REP ---
Clinical: Acute shortness of breath. Technique: Axial noncontrast images from the thoracic inlet to the upper abdomen with coronal and sagittal re-formations. Comparison: 12/07/2018. Findings: Diffuse chronic COPD/emphysematous changes with scattered fibrosis/scarring again noted and similar to prior examination. Current examination demonstrates moderate ill-defined areas of consolidation and interstitial infiltrates involving the lingula and bilateral lower lobes which suggest acute atelectasis/pneumonia along with reactive mediastinal and hilar adenopathy. No significant effusion. No pneumothorax. The previously identified spiculated lesions in the right upper lobe on 12/07/2018 have resolved and likely represented small focal area of pneumonia / atelectasis. Stable atherosclerotic changes to the thoracic aorta and coronary arteries noted without aortic aneurysm. Cardiomegaly is suggested without pericardial effusion. Musculoskeletal structures demonstrate age-related degenerative changes. Limited upper abdomen demonstrates stable right adrenal nodules which appear relatively stable when compared through 03/14/2010. Impression: 1. Chronic COPD/emphysematous changes with scattered fibrosis and scarring. Superimposed lingular and lower lobe consolidations consistent with elements of atelectasis and pneumonia. Follow-up to resolution recommended. 2. Previously identified ill-defined spiculated opacities in the right upper lobe have resolved. Electronically Signed by Roni Patel MD 04/11/2019 02:06 P
[2019-04-11 14:56] LABS: CHLORIDE,RANDOM URINE < 10 MEQ/L; CREATININE,RANDOM URINE 76.3 MG/DL; POTASSIUM RANDOM URINE 41.2 MEQ/L; SODIUM,RANDOM URINE 11 MEQ/L
[2019-04-11] MEDS: LevoFLOXacin IV 500 MG in APPROPRIATE DILUENT 1 EA IV SCH (15:30)
[2019-04-11] MEDS ORDERED: LevoFLOXacin IV 750 MG in APPROPRIATE DILUENT 1 EA IV SCH (16:00)
--- NOTE | 2019-04-11 17:28 | CR ---
DATE OF CONSULTATION: 04/11/2019 CONSULTATION REPORT FOR: JEWEL Glaser CONSULTING PHYSICIAN: Dr. Romo REASON FOR CONSULTATION: Management of acute renal failure and volume status. CHIEF COMPLAINT: Progressive shortness of breath. HISTORY OF PRESENT ILLNESS: Mr. Javier Cruz is a 74-year-old male with past medical history of chronic kidney disease, stage III who has not been seen in nephrology office for the past six years. His last nephrology visit was in 2012. He has a history of diabetes mellitus type 2, diabetic nephropathy, congestive heart failure, multiple other comorbidities as mentioned below. He presented to the hospital on 04/09/2019 with progressive shortness of breath along with decreased urine output. He was admitted to the hospital with acute congestive heart failure (CHF) exacerbation with possible chronic obstructive pulmonary disease (COPD) as well. He was started on diuretics. During the hospital course, his blood pressures have been low. Lowest blood pressures have been in 70s and 80s. He could not be diuresed well. He only got one dose of IV Lasix. His renal function continues to get worse. His creatinine on admission was 2.1 which has bumped up to 3.2 today. He is getting progressively hyponatremia and hyperkalemic. The patient got the Chaidez catheter placed during this hospitalization but despite the Chaidez catheter and trying to optimize his of volume status for possible CHF, his renal function was not improving so nephrology service was called for further help in the management of this patient's volume status and acute renal failure. I saw and evaluated the patient today morning at the bedside. He still reports some moderate amount of shortness of breath. Most of the history was obtained from the patient's chart. The patient is a poor historian. PAST MEDICAL HISTORY: 1. Chronic kidney disease, stage III. 2. History of chronic diastolic congestive heart failure. 3. History of chronic obstructive pulmonary disease (COPD). 4. History of coronary artery disease. 5. Dementia. 6. Chronic oxygen dependence at home. 7. Major depressive disorder. 8. History of Clostridium (C) difficile infection in the past. 9. Recent history of septic arthritis of the left shoulder, status post IV antibiotics with incision and drainage. 10. History of benign prostatic hypertrophy (BPH) and urinary retention in the past. 11. Diabetes mellitus, type 2 with diabetic retinopathy. 12. Atrial fibrillation. PAST SURGICAL HISTORY: 1. History of coronary artery bypass grafting in 2008. 2. Status post right femoral artery stent in the past. 3. Right femoral-popliteal endarterectomy and femoral-popliteal bypass. ALLERGIES: He is allergic to SULFA DRUGS. FAMILY HISTORY: No significant family history of end-stage disease requiring hemodialysis. SOCIAL HISTORY: The patient is a resident of [facility]. No history of illicit drug abuse, smoking or alcohol abuse. REVIEW OF SYSTEMS: CONSTITUTIONAL: The patient reports feeling weak and tired. EYES: He denies any blurry vision or double vision. EARS, NOSE AND THROAT (ENT): He denies any dysphagia, odynophagia, or ear discharge. CARDIOVASCULAR: He denies any chest pain or palpitations. RESPIRATORY: He does report a moderate amount of shortness of breath. He reports history of chronic obstructive pulmonary disease (COPD) as well. GASTROINTESTINAL (GI): Denies any nausea or vomiting. GENITOURINARY: He reports urinary retention and he has a Chaidez catheter at this point. MUSCULOSKELETAL: He denies any muscle aches and pains. CENTRAL NERVOUS SYSTEM (RECOVERY COACH): He denies any strokes or seizures. SKIN: He denies any rashes or ulcers. PSYCHOLOGIC: He reports a history of depression. ENDOCRINE: He reports history of diabetes mellitus, type 2. All other review of systems is negative. PHYSICAL EXAMINATION: GENERAL: The patient is awake, alert, oriented times three, morbidly obese, laying in bed, moderate respiratory distress, wearing a nasal cannula. HEAD AND NECK: Pupils are equally round and reactive to light. Mucous membranes are moist. Neck is supple. There is mildly elevated jugular venous distention (JVD). CARDIOVASCULAR: S1, S2, about 1+ edema of the bilateral ankles up to mid shabazz. No edema of the thighs. No presacral edema. RESPIRATORY: Bilateral equal air entry. No inspiratory crackles but he does have diffuse moderate amount of expiratory rhonchi all over the lungs. ABDOMEN: Soft, obese, positive bowel sounds, nontender. No organomegaly. GENITOURINARY: The patient has an indwelling Chaidez catheter. Urine in the bag is clear. MUSCULOSKELETAL: He has had clubbing of the fingernails. CENTRAL NERVOUS SYSTEM (RECOVERY COACH): No focal deficit. Power is 5/5 in all extremities. LABORATORY REVIEW: CBC showed a WBC of 7.8, hemoglobin 8.5, platelets are 268. Urinalysis done on admission showed 1+ blood, no protein, negative leukocyte esterase and nitrite. Urine random creatinine today is 76.3, urine sodium is 11, urine potassium is 41.2 and random chloride is less than 10. Fractional excretion of sodium is 0.33%. BMP showed sodium 126, potassium 5.6, chloride 95, bicarbonate is 22, BUN 103, creatinine is 3.2, glucose is 413, calcium 7.6, phosphorus is 5.5, magnesium is 2.6, pro BNP is 8823, albumin is 2.2. MICROBIOLOGY: Urine culture and blood cultures are pending. IMAGING STUDIES: An urgent CT of the chest done today showed chronic COPD, emphysematous changes with scattered fibrosis and scarring, superimposed lingular and lower lobe consolidations consistent with atelectasis and pneumonia. CURRENT INPATIENT MEDICATIONS: The patient's inpatient medications include Levaquin 750 mg IV every 48 hourly. Because of acute renal failure, I have decreased the dose to 500 mg IV every 48 hourly. The patient is getting DuoNeb nebulizations [id number] four times a day. He is on: - alprazolam 0.25 mg every six hours as needed for anxiety - Eliquis 2.5 mg by mouth twice a day - aspirin 81 mg by mouth daily - Dulcolax as needed - Colace 100 mg by mouth twice a day - Proscar 5 mg by mouth daily - He was on Lasix which has been stopped. - Haldol 2 mg IM as needed for agitation - insulin Levemir 40 units subcutaneously at bedtime - insulin sliding scale - Solu-Medrol 50 mg IV twice a day - omeprazole 40 mg by mouth daily - He was given a dose of Veltassa 8.4 grams by mouth times one dose - MiraLax one packet by mouth daily - Advair two puffs twice a day and I have stopped the Advair because the patient is taking short-acting nebulizations. - Zoloft 50 mg by mouth daily - He is on Carafate as well which I have stopped. - tramadol as needed - trazodone 100 mg at bedtime - vancomycin 125 mg by mouth every six hours ASSESSMENT: A 74-year-old male with history of chronic kidney disease, stage III with acute chronic obstructive pulmonary disease (COPD) exacerbation and acute renal failure and history of diastolic congestive heart failure. PLAN: 1. Acute renal failure. The patient clinically does not look volume overloaded. He has low skin turgor. Urine electrolytes and fractional excretion of sodium all point towards volume depletion. Continue the Chaidez catheter at this point which will help with urine retention. I have given him a small bolus of normal saline 250 mg IV and I have started the patient on normal saline at 75 mL an hour. Continue to monitor for improvement of renal function. Medications have been adjusted according to glomerular filtration rate (GFR) of less than 20 at this point. 2. Hyponatremia. The patient has hypovolemic hyponatremia with a lower urine sodium and low fractional excretion of sodium (FENA). Sodium level should improve after IV fluid hydration. 3. Hyperkalemia. It is secondary to acute renal failure. The patient needs delivery of sodium to distal nephron for kaliuresis. IV fluid hydration would help improve hyperkalemia as well. The patient was already given a dose of Veltassa this morning. No need of further Veltassa dosage at this point. 4. Acute chronic obstructive pulmonary disease (COPD) exacerbation along with pneumonia. The patient has chronic emphysematous changes on the CT scan and pneumonia in the lower lobe along with atelectasis. He is already on Levaquin. I have decreased the Levaquin dose because of acute renal failure. Continue the IV steroids. We will continue the nebulizations [id number]. I have held the Advair at this point because the patient is using short-acting bronchodilators. Advair will be restarted once his acute COPD symptoms are better. 5. Chronic diastolic congestive heart failure. The patient's brain natriuretic peptide (BNP) elevated. I do not believe this is because of acute congestive heart failure exacerbation. The patient most likely is developing cor pulmonale because of chronic emphysema and COPD. He does not need diuresis at this time. The patient is clinically dehydrated and he needs IV fluids. 6. Anemia and chronic kidney disease. Hemoglobin is 8.5 which is suboptimal. I am going to check the iron levels. I will give him IV iron as needed. 7. Diabetes mellitus, type 2. Continue current dose of insulin. Dose adjustment is as per primary team. 8. Benign prostatic hypertrophy (BPH) and urinary retention. The patient has indwelling Chaidez catheter. Continue current dose of finasteride 5 mg by mouth daily. Thank you for involving me in the care of this patient. I shall be happy to follow the patient along with you tomorrow morning.
[2019-04-11] MEDS: traZODone 100 MG TAB PO SCH (21:44)
[2019-04-11] MEDS: LEVEMIR (INSULIN DETEMIR) 1 UNITS/0.01ML SC SCH (21:44)
[2019-04-12] VITALS (15 sets, daily range): BP systolic 127–154; BP diastolic 63–70; O2SAT 87–94
[2019-04-12] MEDS: ALPRAZolam 0.25 MG TAB PO PRN ×3 (03:47→20:27)
[2019-04-12 05:23] LABS: HEMOGLOBIN 8.8 g/dl (13.5-17.5); MEAN CORPUSCULAR HEMOGLOBIN 26.7 pg (27.0-33.0); MEAN CORPUSCULAR HGB CONC 30.3 g/dl (32.0-36.5); MEAN CORPUSCULAR VOLUME 87.9 fl (80.0-96.0); PLATELET COUNT, AUTOMATED 271 10^3/uL (150-450); WHITE BLOOD COUNT 8.8 10^3/uL (4.0-10.0)
[2019-04-12] MEDS: VANCOMYCIN ORAL SOL 250MG/5ML ORAL SYRINGE PO SCH ×4 (05:35→20:33)
[2019-04-12 05:52] LABS: ALBUMIN 2.1 GM/DL (3.2-5.2); CALCIUM LEVEL 7.8 MG/DL (8.8-10.2); CREATININE FOR GFR 2.5 MG/DL (0.70-1.30); GLOMERULAR FILTRATION RATE 26.9 (>42); POTASSIUM SERUM 5.7 MEQ/L (3.5-5.1)
[2019-04-12 07:32] LABS: MAGNESIUM LEVEL 2.5 MG/DL (1.8-2.4)
--- NOTE | 2019-04-12 07:34 | IPNPDOC ---
Subjective Date Seen The patient was seen on 04/12/19. Subjective Chief Complaint/HPI main c/o today is constipation. Given bowel meds yesterday with mild relief. Constitutional: Denies: Chills, Fever, Night Sweats Pulmonary: Reports: Dyspnea, Cough Cardiovascular: Denies: Chest Pain, Palpitations, Orthopnea, Paroxysmal Noc. Dyspnea, Lt Headedness Gastrointestinal: Reports: Constipation Genitourinary: Reports: Retention (Han in place); Denies: Dysuria, Frequency, Incontinence Psych: Reports: Memory Issues; Denies: Anxiety Objective Physical Examination General Exam: Positive: Alert, Other (cough); Negative: Mild Distress Eye Exam: Positive: EOMI Neck Exam: Positive: JVD Chest Exam: Positive: Rhonchi, Wheezing, Diminished; Negative: Rales Heart Exam: Positive: Rate Normal, Irregular Rhythm Telemetry: Positive: Atrial fibrillation Abdomen Exam: Positive: Normal bowel sounds, Other (disteded, non-tender) Extremity Exam: Positive: Edema (trace edema BLE) Neuro Exam: Positive: Normal Speech Psych Exam: Positive: Mood NL Assessment /Plan Problems (1) TONE (acute kidney injury) Status: Acute Problem Text: 04/12/19: Nephro following and managing Cr 2.5 today. Potassium remains elevated at 5.7. Received Insulin for hyperglycemia this morning. will repeat BMP later today. 04/11 - Cre up to 3.57. K+ back up to 5.6 TONE originally thought to be related in part to retention from BPH, but no improvement with han in place. Clinically SKi seems secondary to Decompensated CHF, but developed hypotension with diuretics. CHAITANYA held Give Veltass x1 for hyperkalemia consult Nephrology - has followed with Dr. Rocío Chinchilla in past. 04/10 cr to 2.4 (from 2.2) K stable down to 5.0 (5.8) 2 acute retention/ACEI/hypotension (2) Acute on chronic diastolic CHF (congestive heart failure) Status: Acute Problem Text: 04/12/19: CT chest negative for pleural effusion/CHF presentation. Per Nephro: hypovolemia. Will monitor for volume overload with IVF replacement. 04/11 - Still appears decompensated. 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-remains on vanco px 04/12/19: COntinue Levaquin: Renally dosed at 500 mg IV q 48 hrs 04/09 BCX2 P 04/09 UCX P (4) COPD (chronic obstructive pulmonary disease) Status: Chronic Problem Text: 04/12/19: Transitioned to prednisone po. Acapella added on to nebs. Continue duonebs and albuterol. remains on SM 60 BID, Duonebs q6H (5) Acute respiratory failure with hypoxia Status: Acute Problem Text: 04/12/19: COPD exacerbation with RLL pneumonia 2 acute CHF +/- PN goal SaO2 88-92% stable on HF NC (6) Paroxysmal atrial fibrillation Status: Chronic Problem Text: 04/12/19: rate controlled. apixiban RD for AC dig for RC Bisoprolol held due to hypotension (7) Depression Status: Chronic Problem Text: c mild dementia/acute delirium remains on HD sert/traz 100 QHS/alpraz 0.25 q6H prn 04/06 halo IM 2 x 2 made MORE agitated (8) Anemia Status: Chronic Problem Text: 04/11 - hgb down slightly - likely secondary to fluid retention and TONE Monitor trend with diuresis caution on asa/apix 04/10 9.1 (9) Urinary retention due to benign prostatic hyperplasia Status: Acute Problem Text: han in place since 04/09 04/10 held tamsul 2 hypotension, remains on levo, finast (10) Hypotension Status: Acute Problem Text: favor 2 septic shock patient remains DNR/DNI (11) Dyspepsia Status: Chronic Problem Text: 04/10 increased favor 2 meds/hypotension; + sulcraf to HD omep 40 (12) DM2 (diabetes mellitus, type 2) Status: Chronic Problem Text: 04/12/19: hyperglycemic this am. Continue diabetic diet and monitor. Continues HD det 42 QHS c SSLI (13) DNR (do not resuscitate) Status: Chronic Problem Text: 04/10/19 reaffirms DNR/DNI (14) Constipation Status: Chronic Problem Text: 04/12/19: continue bowel meds. No BM x 5 days - Add bowel care Miralax, Senna S and dulc supp Plan/VTE VTE Prophylaxis Ordered?: Yes VS, I&O, 24H, Fishbone Vital Signs/I&O Vital Signs Date Time Temp Pulse Resp B/P (MAP) Pulse Ox O2 Delivery O2 Flow Rate FiO2 04/12/19 04:00 94 Nasal Cannula 3.0 04/12/19 04:00 96.1 102 20 130/63 (85) I&O- Last 24 Hours up to 6 AM 04/12/19 06:00 Intake Total 1210 ml Output Total 1900 ml Balance -690 ml Laboratory Data 24H LABS Laboratory Tests 2 04/11/19 11:43: Bedside Glucose (Misc Panel) 390H 04/11/19 14:18: Urine Random Creatinine 76.3, Urine Random Sodium 11, Urine Random Potassium 41.2, Urine Random Chloride < 10 04/11/19 16:57: Bedside Glucose (Misc Panel) 447H 04/11/19 21:40: Bedside Glucose (Misc Panel) 499H 04/12/19 04:58: Nucleated Red Blood Cells % (auto) 0.0, Blood Urea Nitrogen 112H, Creatinine 2.50H, Sodium Level 130L, Potassium Level 5.7H, Chloride Level 99, Carbon Dioxide Level 21, Anion Gap 10, Glomerular Filtration Rate 26.9L, Calcium Level 7.8L, Phosphorus Level 4.0#, Albumin 2.1L CBC/BMP Laboratory Tests 04/12/19 04:58 Red Blood Count 3.30 L, Mean Corpuscular Volume 87.9, Mean Corpuscular Hemoglobin 26.7 L, Mean Corpuscular Hemoglobin Concent 30.3 L, Red Cell Distr ibution Width 19.8 H, Anion Gap 10 Microbiology Microbiology 04/09/19 Blood Culture - Preliminary, Resulted No Growth after 48 hours. All Specime... 04/09/19 Blood Culture - Preliminary, Resulted No Growth after 48 hours. All Specime... 04/11/19 Respiratory Virus Panel (PCR) ([facility]) - Final, Complete 04/09/19 Urine Culture - Final, Complete Attending Note Attending Note Patient seen. Having brisk response from bowel care as ordered. Claudia Snyder April 12, 2019 07:34 Mark Tripp MD April 12, 2019 16:50
[2019-04-12] MEDS: IPRATROPIUM 0.5MG/ALBUTEROL 2.5MG INH SOL UD 3ML (DUONEB)(J7620) NEB SCH ×4 (08:00→20:14)
[2019-04-12] MEDS: MIRALAX *UNIT DOSE* 17GM PACKET PO SCH (09:00)
[2019-04-12] MEDS: DOCUSATE SODIUM 100 MG CAP PO SCH ×2 (09:00→20:11)
[2019-04-12] MEDS: HumaLOG INSULIN (NovoLOG) PER UNIT SC SCH ×4 (09:31→20:16)
[2019-04-12] MEDS: ASPIRIN 81 MG CHEW TABLET PO SCH (09:32)
[2019-04-12] MEDS: predniSONE 20 MG TAB PO SCH (09:32)
[2019-04-12] MEDS: APIXABAN 2.5 MG TAB (ELIQUIS) PO SCH ×2 (09:32→20:27)
[2019-04-12] MEDS: OMEPRAZOLE 20 MG CAP PO SCH (09:33)
[2019-04-12] MEDS: SERTRALINE HCL 50 MG TAB PO SCH (09:33)
[2019-04-12] MEDS: traMADol 50 MG TAB PO PRN ×3 (10:47→17:59)
[2019-04-12] MEDS ORDERED: HumaLOG INSULIN (NovoLOG) PER UNIT SC ONE (12:00)
--- NOTE | 2019-04-12 12:05 | IPN ---
DATE OF SERVICE: 04/12/2019 SUBJECTIVE: Patient was seen and examined at the bedside today morning. He is wearing nasal cannula. He still has a moderate amount of shortness of breath; however, renal function is improving today. He was given gentle IV fluid hydration. Creatinine has dropped to 2.5 now. He still has persistent hyperkalemia. Blood pressure is within the acceptable range. OBJECTIVE: VITAL SIGNS: Temperature is 97.8 degrees Fahrenheit, blood pressure 141/67, pulse is 92, respiratory rate of 22, saturating 94% on 3 liters via nasal cannula. INTAKE AND OUTPUT: Urine output recorded as 1.4 liters yesterday, 800 mL so far today since overnight. Weight on the bed scale is 74.5 kg. PHYSICAL EXAMINATION: GENERAL: Patient is awake, alert, oriented times three, laying in the bed, mild respiratory distress. HEAD AND NECK EXAM: Extraocular muscles intact. Pupils equally round and reactive to light. Mucous membranes moist. Neck is supple. There is mildly elevated JVD. CARDIOVASCULAR: S1, S2. 1+ edema of the ankles only. RESPIRATORY: Decreased breath sounds at the bases and diffuse expiratory rhonchi bilaterally from bases up to the upper lung zone. ABDOMEN: Soft, obese, positive bowel sounds. Nontender. No organomegaly. GENITOURINARY: He has an indwelling Chaidez catheter. MUSCULOSKELETAL: Clubbing of the fingernails, no cyanosis. LEATHER FLESHER: No focal deficit. Power is 5/5 in all extremities. LABORATORY REVIEW: CBC showed WBC 8.8, hemoglobin 8.8, platelets of 271. BMP showed sodium 130, potassium 5.7, chloride 99, bicarb 21, BUN 112, creatinine is 2.5, calcium 7.8, phosphorus is 4, albumin 2.1. CURRENT INPATIENT MEDICATIONS: The patient's medications were all reviewed by me. He is currently on IV Levaquin. IV fluids have been stopped. He continues to be on DuoNeb nebulizations. Solu-Medrol has been stopped and he is currently on prednisone 40 mg p.o. daily. No other change in the medications today as compared with yesterday. ASSESSMENT/PLAN: 1. Acute renal failure superimposed on chronic kidney disease. It was secondary to volume depletion and dehydration. He was given gentle IV fluid hydration yesterday. I am going to optimize the patient's fluid intake at this point. 2. Hyponatremia. The patient has had hypovolemic hyponatremia. Sodium level is improving with IV fluid hydration. Further decision to give IV fluid will be done after echocardiogram report. 3. Acute chronic obstructive pulmonary disease (COPD) exacerbation along with pneumonia. The patient is on IV antibiotics. He is also on steroids, which has been changed to prednisone because of hyperglycemia. Continue nebulizations four times a day. 4. Chronic diastolic congestive heart failure. The patient is not getting any diuretics at this point because he was volume depleted yesterday and he had acute renal failure. Volume status is optimal. Echocardiogram was done today and report is pending. 5. Anemia, chronic kidney disease. Iron levels were ordered and they are pending. Hemoglobin is 8.8. There is no need of blood transfusion at this point. 6. Diabetes mellitus type 2, insulin dependent. The patient is hyperglycemic because of use of steroids. Steroid dose has been changed to prednisone. He continues to be on insulin sliding scale and Levemir. 7. Benign prostatic hypertrophy (BPH) and urinary retention. Continue the Chaidez catheter. Continue finasteride 5 mg p.o. daily. 8. Hyperkalemia. The patient has persistent hyperkalemia. I have started him on VELTASSA 16.8 grams p.o. daily.
[2019-04-12] MEDS: FINASTERIDE 5 MG TAB PO SCH (12:12)
[2019-04-12] MEDS: PATIROMER SORBITEX CALCIUM 8.4 GM POWDER PACKET (VELTASSA) PO SCH (12:13)
[2019-04-12] MEDS: HALOPERIDOL 5 MG/ML VIAL (J1630) IM PRN ×4 (12:35→22:57)
[2019-04-12] MEDS: SENNA 8.6 MG TAB (SENOKOT) PO SCH (20:12)
[2019-04-12] MEDS: traZODone 100 MG TAB PO SCH (20:27)
--- NOTE | 2019-04-12 20:27 | ECHO ---
DATE OF PROCEDURE: 04/12/2019 REFERRING PHYSICIAN: Cheo Lang MD INDICATION: Hypotension. HEIGHT: 168 cm WEIGHT: 72 kg DIMENSIONS: IVS: 1.2 LV: 4.6 LVPW: 1.1 LA: 4.4 Aorta: 3.1 IVC: 2.8 FINDINGS Study is of fair technical quality with difficult visualization. The patient is in atrial fibrillation with controlled rate. Left ventricle is normal size and overall normal contractility. I estimate left ventricular ejection fraction (LVEF) around 65-70%. There is septal wall motion abnormality likely related to prior open heart surgery. Mild left ventricular hypertrophy (LVH) is noted. Right ventricle appears to be mildly dilated and slightly hypokinetic. There is severe biatrial enlargement. Aortic valve is sclerotic, but mobility of leaflets is preserved. There are also degenerative abnormalities of mitral valve with mitral annular calcifications and also thickening and calcifications of chordal apparatus. Tricuspid valve appears normal. Pulmonic valve was poorly visualized, but grossly appears normal. No pericardial effusion is noted. Inferior vena cava is dilated and there is only partial collapse with respiration indicative of very high central venous pressure. Aortic root appears normal. Aortic arch and abdominal aorta were not well seen. Doppler interrogation of aortic valve reveals mild insufficiency and trivial stenosis. There is approximately moderate mitral insufficiency and moderate tricuspid insufficiency. I estimate pulmonary artery pressure at minimum in high 60s or in 70s corresponding to at minimum moderately severe pulmonary hypertension. Evaluation of diastolic function is inconclusive due to underlying atrial fibrillation. CONCLUSIONS 1. Study is of fair technical quality. 2. Normal left ventricle (LV) size with mild LVH and overall preserved LV systolic function. Septal wall motion abnormality possibly related to coronary artery bypass surgery. 3. Aortic sclerosis resulting in mild insufficiency and trivial stenosis. 4. Moderate mitral and tricuspid insufficiency. 5. High central venous pressure and at least moderately severe pulmonary hypertension. COMMENT Subacute bacterial endocarditis (SBE) prophylaxis is not recommended. Based on this study it seems unlikely that hypotension would be of cardiac etiology.
[2019-04-12] MEDS ORDERED: LEVEMIR (INSULIN DETEMIR) 1 UNITS/0.01ML SC SCH (21:00)
[2019-04-12] MEDS ORDERED: IRON SUCROSE 25 MG in NS 50 ML IV ONE (22:15)
[2019-04-12] MEDS ORDERED: IRON SUCROSE 175 MG in NS 100 ML IV SCH (22:15)
[2019-04-12] MEDS ORDERED: IRON SUCROSE 175 MG in NS 100 ML IV ONE (23:30)
[2019-04-13] VITALS (30 sets, daily range): BP systolic 133–161; BP diastolic 62–78; O2SAT 85–96
[2019-04-13] MEDS ORDERED: LORazepam 0.5 MG TAB PO ONE (00:45)
[2019-04-13] MEDS ORDERED: risperiDONE 0.5 MG TAB PO ONE (00:45)
[2019-04-13] MEDS ORDERED: LEVALBUTEROL 1.25 MG/0.5 ML CONCENTRATE NEB INH PRN (00:45)
[2019-04-13] MEDS: VANCOMYCIN ORAL SOL 250MG/5ML ORAL SYRINGE PO SCH ×5 (01:08→23:17)
[2019-04-13] MEDS ORDERED: FUROSEMIDE 100 MG/10 ML VIAL (J1940) IV ONE (02:15)
[2019-04-13] MEDS ORDERED: methylPREDNISolone INJ 125 MG/2 ML VIAL (J2930) IV ONE (02:15)
[2019-04-13 06:14] LABS: HEMATOCRIT 33.7 % (42.0-52.0); HEMOGLOBIN 10.5 g/dl (13.5-17.5); MEAN CORPUSCULAR HEMOGLOBIN 26.7 pg (27.0-33.0); MEAN CORPUSCULAR HGB CONC 31.2 g/dl (32.0-36.5); MEAN CORPUSCULAR VOLUME 85.8 fl (80.0-96.0); PLATELET COUNT, AUTOMATED 365 10^3/uL (150-450); RED BLOOD COUNT 3.93 10^6/uL (4.30-6.10); WHITE BLOOD COUNT 15.9 10^3/uL (4.0-10.0)
[2019-04-13 06:41] LABS: ALBUMIN 2.4 GM/DL (3.2-5.2); CALCIUM LEVEL 9.2 MG/DL (8.8-10.2); CREATININE FOR GFR 1.47 MG/DL (0.70-1.30); GLOMERULAR FILTRATION RATE 49.6 (>42); PHOSPHORUS LEVEL 2.8 MG/DL (2.5-4.9); POTASSIUM SERUM 4.8 MEQ/L (3.5-5.1)
[2019-04-13] MEDS: HumaLOG INSULIN (NovoLOG) PER UNIT SC SCH ×4 (07:30→20:38)
[2019-04-13] MEDS: IPRATROPIUM 0.5MG/ALBUTEROL 2.5MG INH SOL UD 3ML (DUONEB)(J7620) NEB SCH ×4 (07:38→19:39)
--- NOTE | 2019-04-13 07:38 | IPNPDOC ---
Subjective Date Seen The patient was seen on 04/13/19. Subjective Chief Complaint/HPI pneumonia Events since last encounter Patient developed hypoxia and agitation overnight. Nursing reports giving Risperidone, Haldol with minimal relief. Required increased oxygenation as high as a 15% VM. Given Lasix 80 mg x1 with 1L diuresis. Given Duoneb and xopenex as ordered with minimal response. Solummedrol 80 mg IV given x 1. Echo completed: mod-severe pulmonary HTN. EF 65-70%. See full report. Noted hypoglycemia this am with a glucose of 52. Levemir was increased to 50 units last evening due to hyperglycemia and increased insulin needs. Diet was also changed to carb consistent 2 gram sodium with fluid restriction. Pulmonary: Reports: Dyspnea, Cough Cardiovascular: Denies: Chest Pain, Palpitations Gastrointestinal: Reports: Constipation Psych: Reports: Other Psych (agitatiojn) Objective Physical Examination General Exam: Positive: Alert, Moderate Distress, Other (cough) Eye Exam: Positive: EOMI Neck Exam: Positive: JVD Chest Exam: Positive: Wheezing, Diminished; Negative: Rales, Rhonchi Heart Exam: Positive: Rate Normal, Irregular Rhythm Telemetry: Positive: Atrial fibrillation Abdomen Exam: Positive: Normal bowel sounds, Other (disteded, non-tender) Extremity Exam: Negative: Edema Neuro Exam: Positive: Normal Speech Psych Exam: Positive: Mood NL Assessment /Plan Problems (1) Acute respiratory failure with hypoxia Status: Acute Problem Text: 04/13/19: eval CXR this am. oxygenate appropriately. continue nebs. patient is DNR/DNI. 04/12/19: COPD exacerbation with RLL pneumonia 2 acute CHF +/- PN goal SaO2 88-92% stable on HF NC (2) TONE (acute kidney injury) Status: Acute Problem Text: 04/13/19: Cr 1.4 this am. Sodium corrected at 138. potassium improved and stable. 04/12/19: Nephro following and managing Cr 2.5 today. Potassium remains elevated at 5.7. Received Insulin for hyperglycemia this morning. will repeat BMP later today. 04/11 - Cre up to 3.57. K+ back up to 5.6 TONE originally thought to be related in part to retention from BPH, but no improvement with han in place. Clinically SKi seems secondary to Decompensated CHF, but developed hypotension with diuretics. CHAITANYA held Give Veltass x1 for hyperkalemia consult Nephrology - has followed with Dr. Rocío Chinchilla in past. 04/10 cr to 2.4 (from 2.2) K stable down to 5.0 (5.8) 2 acute retention/ACEI/hypotension (3) Acute on chronic diastolic CHF (congestive heart failure) Permanent Comment: Echo 04/13/19 1. Study is of fair technical quality. 2. Normal left ventricle (LV) size with mild LVH and overall preserved LV systolic function. Septal wall motion abnormality possibly related to coronary artery bypass surgery. 3. Aortic sclerosis resulting in mild insufficiency and trivial stenosis. 4. Moderate mitral and tricuspid insufficiency. 5. High central venous pressure and at least moderately severe pulmonary hypertension. Last Edited By: Claudia Snyder NP on April 13, 2019 07:35 Status: Acute Problem Text: 04/13/19: see echo report. Will monitor on telemetry. Diuresed overnight due to hypoxia with -1L. 04/12/19: CT chest negative for pleural effusion/CHF presentation. Per Nephro: hypovolemia. Will monitor for volume overload with IVF replacement. 04/11 - Still appears decompensated. Has not olerated diuretics due to hypotension cont BARRON diet and FR May need to consider Dopamine precipitated by urinary retention 2 BPH/prostatitis -1.1L since admission 04/10 unable to diuresis more 2 SBP 80-90, held biso (has not received) and tamsul 0.4 BID (has han), + dig 250 x 1 as inotrope + AF rate control; continue BARRON/1500 FR; tc LD dopamine gtt (4) HAP (hospital-acquired pneumonia) Problem Text: D3 levo (RD 750 q48H)-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-remains on vanco px 04/12/19: COntinue Levaquin: Renally dosed at 500 mg IV q 48 hrs 04/09 BCX2 P 04/09 UCX P (5) COPD (chronic obstructive pulmonary disease) Status: Chronic Problem Text: 04/12/19: Transitioned to prednisone po. Acapella added on to nebs. Continue duonebs and albuterol. remains on SM 60 BID, Duonebs q6H (6) Paroxysmal atrial fibrillation Status: Chronic Problem Text: 04/12/19: rate controlled. apixiban RD for AC dig for RC Bisoprolol held due to hypotension (7) Depression Status: Chronic Problem Text: c mild dementia/acute delirium remains on HD sert/traz 100 QHS/alpraz 0.25 q6H prn 04/06 halo IM 2 x 2 made MORE agitated (8) Anemia Status: Chronic Problem Text: 04/11 - hgb down slightly - likely secondary to fluid retention and TONE Monitor trend with diuresis caution on asa/apix 04/10 9.1 (9) Urinary retention due to benign prostatic hyperplasia Status: Acute Problem Text: han in place since 04/09 04/10 held tamsul 2 hypotension, remains on levo, finast (10) Hypotension Status: Acute Problem Text: favor 2 septic shock patient remains DNR/DNI (11) Dyspepsia Status: Chronic Problem Text: 04/10 increased favor 2 meds/hypotension; + sulcraf to HD omep 40 (12) DM2 (diabetes mellitus, type 2) Status: Chronic Problem Text: 04/13/19: hypoglycemia this am. monitor sugars and insulin needs. 04/12/19: hyperglycemic this am. Continue diabetic diet and monitor. Continues HD det 42 QHS c SSLI (13) DNR (do not resuscitate) Status: Chronic Problem Text: 04/10/19 reaffirms DNR/DNI (14) Constipation Status: Chronic Problem Text: 04/12/19: continue bowel meds. No BM x 5 days - Add bowel care Miralax, Senna S and dulc supp Plan/VTE VTE Prophylaxis Ordered?: Yes VS, I&O, 24H, Fishbone Vital Signs/I&O Vital Signs Date Time Temp Pulse Resp B/P (MAP) Pulse Ox O2 Delivery O2 Flow Rate FiO2 04/13/19 05:30 91 6.0 04/13/19 04:00 98.3 96 20 148/77 (100) 04/12/19 21:00 Nasal Cannula I&O- Last 24 Hours up to 6 AM 04/13/19 06:00 Intake Total 440 ml Output Total 5475 ml Balance -5035 ml Laboratory Data 24H LABS Laboratory Tests 2 04/12/19 11:17: Bedside Glucose (Misc Panel) 530*H 04/12/19 11:36: Random Glucose 378H, Iron Level 43L, Total Iron Binding Capacity 358, Transferrin % Saturation 12.0L, Ferritin 437H 04/12/19 13:46: Bedside Glucose (Misc Panel) 289H 04/12/19 16:25: Bedside Glucose (Misc Panel) 179H 04/12/19 20:15: Bedside Glucose (Misc Panel) 130H 04/13/19 05:33: Nucleated Red Blood Cells % (auto) 0.0, Blood Urea Nitrogen 75H, Creatinine 1.47H, Sodium Level 138#, Potassium Level 4.8, Chloride Level 105, Carbon Dioxide Level 25, Anion Gap 8, Glomerular Filtration Rate 49.6, Calcium Level 9.2#, Phosphorus Level 2.8#, Albumin 2.4L 04/13/19 06:54: Bedside Glucose (Misc Panel) 187H CBC/BMP Laboratory Tests 04/13/19 05:33 Red Blood Count 3.93 L, Mean Corpuscular Volume 85.8, Mean Corpuscular Hemoglob in 26.7 L, Mean Corpuscular Hemoglobin Concent 31.2 L, Red Cell Distribution Width 20.0 H, Anion Gap 8 Microbiology Microbiology 04/09/19 Blood Culture - Preliminary, Resulted No Growth after 72 hours. All specime... 04/09/19 Blood Culture - Preliminary, Resulted No Growth after 72 hours. All specime... 04/11/19 Respiratory Virus Panel (PCR) ([facility]) - Final, Complete 04/09/19 Urine Culture - Final, Complete Claudia Snyder [facility] April 13, 2019 07:38
[2019-04-13] MEDS: MIRALAX *UNIT DOSE* 17GM PACKET PO SCH (07:49)
--- NOTE | 2019-04-13 08:04 | REP ---
Portable chest x-ray: Single view. History: Short of breath. Comparison chest x-ray: April 09, 2019. Findings: Cardiomegaly is observed. The patient status post prior median sternotomy. These findings are unchanged. There are patchy infiltrates in the left base and right base. Pulmonary vasculature is congested. Interstitial markings are diffusely somewhat prominent. No pleural effusion is seen. Consolidation in the right base medially is improved. No new infiltrate is seen. Electronically Signed by Ervin Lucio MD 04/13/2019 07:56 A
[2019-04-13] MEDS: OMEPRAZOLE 20 MG CAP PO SCH (08:25)
[2019-04-13] MEDS: SERTRALINE HCL 50 MG TAB PO SCH (08:25)
[2019-04-13] MEDS: predniSONE 20 MG TAB PO SCH (08:25)
[2019-04-13] MEDS: PATIROMER SORBITEX CALCIUM 8.4 GM POWDER PACKET (VELTASSA) PO SCH (08:25)
[2019-04-13] MEDS: APIXABAN 2.5 MG TAB (ELIQUIS) PO SCH ×2 (08:25→20:38)
[2019-04-13] MEDS: ASPIRIN 81 MG CHEW TABLET PO SCH (08:25)
[2019-04-13] MEDS: DOCUSATE SODIUM 100 MG CAP PO SCH ×2 (08:26→20:39)
[2019-04-13 08:38] LABS: ABG BASE EXCESS 0.3 (-2.0-2.0); ABG HCO3 23.9 MEQ/L (22.0-26.0); ABG O2 SATURATION 94.7 % (95.0-99.0); ABG PARTIAL PRESSURE O2 71.2 mmHg (75.0-100.0); ABG STANDARD HCO3 24.7 MEQ/L (22.0-26.0); ABG pH (ARTERIAL) 7.452 UNITS (7.350-7.450)
[2019-04-13] MEDS: BISOPROLOL FUMARATE 5 MG TAB PO SCH (09:35)
--- NOTE | 2019-04-13 10:37 | IPNPDOC ---
Subjective Date Seen The patient was seen on 04/13/19. Subjective Chief Complaint/HPI feeling a little better this am. Constitutional: Denies: Chills Skin: Denies: Rash Pulmonary: Reports: Dyspnea, Cough Cardiovascular: Denies: Chest Pain Gastrointestinal: Denies: Nausea, Vomiting Hematologic: Denies: Bruising Psych: Reports: Anxiety Objective Physical Examination General Exam: Positive: Alert, Moderate Distress, Other (cough) Eye Exam: Positive: EOMI Neck Exam: Positive: JVD Chest Exam: Positive: Wheezing (minimal), Diminished; Negative: Rales, Rhonchi Heart Exam: Positive: Tachycardic (developed RVR overnight with HR 120-130. now improved to 104-110 after 5mg bisoprolol. ), Irregular Rhythm Telemetry: Positive: Atrial fibrillation Abdomen Exam: Positive: Normal bowel sounds, Other (non-tender, not distended as noted yesterday.) Extremity Exam: Negative: Edema Neuro Exam: Positive: Normal Speech Psych Exam: Positive: Anxiety (seems more comfortable than yesterday) Assessment /Plan Problems (1) Acute respiratory failure with hypoxia Status: Acute Problem Text: 04/13/19: eval CXR this am. oxygenate appropriately. continue n ebs. patient is DNR/DNI. 04/12/19: COPD exacerbation with RLL pneumonia 2 acute CHF +/- PN goal SaO2 88-92% stable on HF NC (2) TONE (acute kidney injury) Status: Acute Problem Text: 04/13/19: Cr 1.4 this am. Sodium corrected at 138. potassium improved and stable. 04/12/19: Nephro following and managing Cr 2.5 today. Potassium remains elevated at 5.7. Received Insulin for hyperglycemia this morning. will repeat BMP later today. 04/11 - Cre up to 3.57. K+ back up to 5.6 TONE originally thought to be related in part to retention from BPH, but no improvement with han in place. Clinically SKi seems secondary to Decompensa car[place] CHF, but developed hypotension with diuretics. CHAITANYA held Give Veltass x1 for hyperkalemia consult Nephrology - has followed with Dr. Rocío Chinchilla in past. 04/10 cr to 2.4 (from 2.2) K stable down to 5.0 (5.8) 2 acute retention/ACEI/hypotension (3) Acute on chronic diastolic CHF (congestive heart failure) Permanent Comment: Echo 04/13/19 1. Study is of fair technical quality. 2. Normal left ventricle (LV) size with mild LVH and overall preserved LV systolic function. Septal wall motion abnormality possibly related to coronary artery bypass surgery. 3. Aortic sclerosis resulting in mild insufficiency and trivial stenosis. 4. Moderate mitral and tricuspid insufficiency. 5. High central venous pressure and at least moderately severe pulmonary hypertension. Last Edited By: Claudia Snyder NP on April 13, 2019 07:35 Status: Acute Problem Text: 04/13/19: see echo report. Will monitor on telemetry. Diuresed overnight due to hypoxia with -1L. 04/12/19: CT chest negative for pleural effusion/CHF presentation. Per Nephro: hypovolemia. Will monitor for volume overload with IVF replacement. 04/11 - Still appears decompensated. Has not olerated diuretics due to hypotension cont BARRON diet and FR May need to consider Dopamine precipitated by urinary retention 2 BPH/prostatitis -1.1L since admission 04/10 unable to diuresis more 2 SBP 80-90, held biso (has not received) and tamsul 0.4 BID (has han), + dig 250 x 1 as inotrope + AF rate control; continue BARRON/1500 FR; tc LD dopamine gtt (4) HAP (hospital-acquired pneumonia) Problem Text: D3 levo (RD 750 q48H)-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-remains on vanco px 04/12/19: COntinue Levaquin: Renally dosed at 500 mg IV q 48 hrs 04/09 BCX2 P 04/09 UCX P (5) COPD (chronic obstructive pulmonary disease) Status: Chronic Problem Text: 04/12/19: Transitioned to prednisone po. Acapella added on to nebs. Continue duonebs and albuterol. remains on SM 60 BID, Duonebs q6H (6) Paroxysmal atrial fibrillation Status: Chronic Problem Text: 04/13: bisoprolol resumed for control of RVR, hypotension has resolved 04/12/19: rate controlled. apixiban RD for AC dig for RC Bisoprolol held due to hypotension (7) Depression Status: Chronic Problem Text: c mild dementia/acute delirium remains on HD sert/traz 100 QHS/alpraz 0.25 q6H prn 5/22 halo IM 2 x 2 made MORE agitated (8) Anemia Status: Chronic Problem Text: 04/11 - hgb down slightly - likely secondary to fluid retention and TONE Monitor trend with diuresis caution on asa/apix 04/10 9.1 (9) Urinary retention due to benign prostatic hyperplasia Status: Acute Problem Text: han in place since 04/09 04/10 held tamsul 2 hypotension, remains on levo, finast (10) Hypotension Status: Resolved Problem Text: favor 2 septic shock patient remains DNR/DNI (11) Dyspepsia Status: Chronic Problem Text: 04/10 increased favor 2 meds/hypotension; + sulcraf to HD omep 40 (12) DM2 (diabetes mellitus, type 2) Status: Chronic Problem Text: 04/13/19: hypoglycemia this am. monitor sugars and insulin needs. likely hypoglycemic due to poor intake yesterday. reduce levemir 04/12/19: hyperglycemic this am. Continue diabetic diet and monitor. Continues HD det 42 QHS c SSLI (13) DNR (do not resuscitate) Status: Chronic Problem Text: 04/10/19 reaffirms DNR/DNI (14) Constipation Status: Chronic Problem Text: 04/12/19: continue bowel meds. No BM x 5 days - Add bowel care Miralax, Senna S and dulc supp Plan/VTE VTE Prophylaxis Ordered?: Yes VS, I&O, 24H, Fishbone Vital Signs/I&O Vital Signs Date Time Temp Pulse Resp B/P (MAP) Pulse Ox O2 Delivery O2 Flow Rate FiO2 04/13/19 09:45 119 20 94 10.0 04/13/19 09:35 133/78 04/13/19 08:00 99.4 04/12/19 21:00 Nasal Cannula I&O- Last 24 Hours up to 6 AM 04/13/19 06:00 Intake Total 440 ml Output Total 5475 ml Balance -5035 ml Laboratory Data 24H LABS Laboratory Tests 2 04/12/19 11:17: Bedside Glucose (Misc Panel) 530*H 04/12/19 11:36: Random Glucose 378H, Iron Level 43L, Total Iron Binding Capacity 358, Transferrin % Saturation 12.0L, Ferritin 437H 04/12/19 13:46: Bedside Glucose (Misc Panel) 289H 04/12/19 16:25: Bedside Glucose (Misc Panel) 179H 04/12/19 20:15: Bedside Glucose (Misc Panel) 130H 04/13/19 05:33: Nucleated Red Blood Cells % (auto) 0.0, Blood Urea Nitrogen 75H, Creatinine 1.47H, Sodium Level 138#, Potassium Level 4.8, Chloride Level 105, Carbon Dioxid e Level 25, Anion Gap 8, Glomerular Filtration Rate 49.6, Calcium Level 9.2#, Phosphorus Level 2.8#, Albumin 2.4L 04/13/19 06:54: Bedside Glucose (Misc Panel) 187H 04/13/19 08:28: Blood Gas Bicarbonate Standard 24.7, Arterial Blood pH 7.452H, Arterial Blood P artial Pressure CO2 35.0, Arterial Blood Partial Pressure O2 71.2L, Arterial Blood Total CO2 25.0, Arterial Blood HCO3 23.9, Arterial Blood Base Excess 0.3, Arterial Blood Oxygen Saturation 94.7L CBC/BMP Laboratory Tests 04/13/19 05:33 Red Blood Count 3.93 L, Mean Corpuscular Volume 85.8, Mean Corpuscular Hemoglobin 26.7 L, Mean Corpuscular Hemoglobin Concent 31.2 L, Red Cell Distribution Width 20.0 H, Anion Gap 8 Microbiology Microbiology 04/09/19 Blood Culture - Preliminary, Resulted No Growth after 72 hours. All specime... 04/09/19 Blood Culture - Preliminary, Resulted No Growth after 72 hours. All specime... 04/11/19 Respiratory Virus Panel (PCR) ([facility]) - Final, Complete 04/09/19 Urine Culture - Final, Complete Mark Tripp MD April 13, 2019 10:37
[2019-04-13] MEDS ORDERED: FUROSEMIDE 40 MG/4 ML VIAL (J1940) IV ONE (11:15)
[2019-04-13] MEDS: FINASTERIDE 5 MG TAB PO SCH (11:29)
[2019-04-13 12:52] LABS: CALCIUM LEVEL 9.4 MG/DL (8.8-10.2); CREATININE FOR GFR 1.68 MG/DL (0.70-1.30); GLOMERULAR FILTRATION RATE 42.5 (>42); MAGNESIUM LEVEL 2.4 MG/DL (1.8-2.4)
--- NOTE | 2019-04-13 13:02 | IPN ---
DATE OF SERVICE: 04/13/2019 SUBJECTIVE: Patient was seen and examined at the bedside today morning. He was also discussed this morning with the primary team. I was told that patient developed atrial fibrillation (AFib) with rapid ventricular response (RVR) overnight and that resulted in pulmonary edema and shortness of breath. Patient was given a dose of Lasix 80 mg IV times one dose. He was also restarted on bisoprolol. He made 4-1/2 liters of urine yesterday. His hyponatremia and acute renal failure is improving. Creatinine is down to 1.4 today. Patient still reports a moderate amount of shortness of breath. OBJECTIVE: Vital signs: Temperature is 99.4 degrees Fahrenheit. Blood pressure 133/78, pulse is 108, respiratory rate of 20, saturating 94% on nasal cannula at 10 liters. Intake and output: Urine output recorded is 4.4 liters yesterday, 1.8 liters so far today since overnight. Weight in the bed scale is 76.4 kg, which is not reliable because despite more than 1-1/2 gallon of urine output. He has gained 2 kg of weight. PHYSICAL EXAMINATION: General: Patient is awake, alert, oriented times three, laying in bed, in moderate respiratory distress. Head and neck exam: Extraocular muscles intact. Pupils equally round and reactive to light. Mucous membranes are moist. Neck is supple. Moderately elevated jugular venous distention (JVD). Cardiovascular: S1, S2. 1+ edema of the ankles. Respiratory: Decreased breath sounds at the bases. Diffuse expiratory rhonchi and mild respiratory crackles. Abdomen: Soft, obese, positive bowel sounds. Nontender. No organomegaly. Genitourinary: He has an indwelling Chaidez catheter. Musculoskeletal: There is clubbing of the fingernails. There is no cyanosis and mild amount of edema on lower extremities. 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 Power is 5/5 in all extremities. LAB REVIEW: Complete blood count (CBC) showed WBC 15.9, hemoglobin 10.5, platelets of 365. Basic metabolic panel (BMP) showed sodium 138, potassium 4.8, chloride 105, bicarbonate 25, BUN 75, creatinine is 5.4, glucose 53, calcium 9.2. Phosphorus was 2.8. IMAGING: A chest x-ray was done yesterday which showed pulmonary congestion and pulmonary edema. CURRENT INPATIENT MEDICATIONS: The patient's medications were all reviewed by me. He is getting IV Venofer 200 mg every 48 hours. He continues to be on IV Levaquin. He was given a dose of Lasix 80 mg IV last night. He has been started on bisoprolol 5 mg by mouth daily. ASSESSMENT AND PLAN: 1. Acute renal failure superimposed on chronic kidney disease. Initially it was secondary to volume depletion and dehydration. However, the patient developed fluid overload yesterday he continues to have Chaidez catheter. He responded well to the IV diuretics, creatinine is stable. Okay to give another dose of diuretic now. 2. Hyponatremia. Sodium level is significantly improved to 138. Okay to give another dose of Lasix today in the afternoon. 3. Acute on chronic diastolic congestive heart failure. The patient got pulmonary edema. Last night because of a fib he was given Lasix 80 mg IV last night. I am going to give another dose of 40 mg IV today. He will be restarted on oral diuretics tomorrow. 4. Acute COPD exacerbation. The patient continues to be on nebulizations and steroids rest of the management is as per primary team. He is also on IV Levaquin. 5. Iron-deficiency anemia. The patient is getting IV Venofer hemoglobin is 10.5 now. 6. Hyperkalemia. Potassium level is improving with IV diuretics and with dose of evidence of that he was started on yesterday. 7. Active fibrillation with rapid ventricular rate. The patient was given bisoprolol he is also on Eliquis heart rate is count is better controlled now. 8. BPH with the urinary retention. Continue the Chaidez catheter. Continue finasteride 5 mg by mouth daily.
[2019-04-13] MEDS: LevoFLOXacin IV 500 MG in APPROPRIATE DILUENT 1 EA IV SCH (16:33)
[2019-04-13] MEDS: LEVEMIR (INSULIN DETEMIR) 1 UNITS/0.01ML SC SCH (20:37)
[2019-04-13] MEDS: traZODone 100 MG TAB PO SCH (20:39)
[2019-04-13] MEDS: SENNA 8.6 MG TAB (SENOKOT) PO SCH (20:40)
[2019-04-14] VITALS (26 sets, daily range): BP systolic 116–145; BP diastolic 56–77; O2SAT 82–98
[2019-04-14] MEDS: IPRATROPIUM 0.5MG/ALBUTEROL 2.5MG INH SOL UD 3ML (DUONEB)(J7620) NEB PRN (00:27)
[2019-04-14] MEDS: ALPRAZolam 0.25 MG TAB PO PRN ×2 (00:51→22:03)
[2019-04-14] MEDS ORDERED: FUROSEMIDE 100 MG/10 ML VIAL (J1940) IV ONE (01:00)
[2019-04-14] MEDS: VANCOMYCIN ORAL SOL 250MG/5ML ORAL SYRINGE PO SCH ×3 (05:11→17:15)
[2019-04-14 05:32] LABS: HEMATOCRIT 36.3 % (42.0-52.0); HEMOGLOBIN 11.5 g/dl (13.5-17.5); MEAN CORPUSCULAR HEMOGLOBIN 26.1 pg (27.0-33.0); MEAN CORPUSCULAR HGB CONC 31.7 g/dl (32.0-36.5); MEAN CORPUSCULAR VOLUME 82.5 fl (80.0-96.0); PLATELET COUNT, AUTOMATED 443 10^3/uL (150-450); WHITE BLOOD COUNT 22.8 10^3/uL (4.0-10.0)
[2019-04-14 05:54] LABS: ALBUMIN 2.6 GM/DL (3.2-5.2); CALCIUM LEVEL 10.1 MG/DL (8.8-10.2); CREATININE FOR GFR 1.61 MG/DL (0.70-1.30); GLOMERULAR FILTRATION RATE 44.6 (>42); PHOSPHORUS LEVEL 3.6 MG/DL (2.5-4.9); POTASSIUM SERUM 3.5 MEQ/L (3.5-5.1)
[2019-04-14] MEDS: HumaLOG INSULIN (NovoLOG) PER UNIT SC SCH ×3 (07:30→17:16)
--- NOTE | 2019-04-14 07:48 | IPNPDOC ---
Subjective Date Seen The patient was seen on 04/14/19. Subjective Chief Complaint/HPI COPD, CHF, TONE Events since last encounter Had another episode of dyspnea overnight requiring Lasix 80 mg IV x1. Diuresed 2L. Continues with wet sounding cough and sun-downing type behaviors overnight. Has prn Alprazolam with some improvement. Weaned down to 4LNC. Pulmonary: Reports: Dyspnea, Cough Cardiovascular: Reports: Orthopnea; Denies: Chest Pain, Palpitations, Paroxysmal Noc. Dyspnea, Lt Headedness Gastrointestinal: Reports: Diarrhea (after bowel meds given); Denies: Nausea, Vomiting, Abdominal Pain, Constipation Genitourinary: Reports: Retention (Han) Objective Physical Examination General Exam: Positive: Alert, Moderate Distress, Other (cough) Eye Exam: Positive: EOMI Neck Exam: Positive: JVD Chest Exam: Positive: Rales, Rhonchi, Wheezing, Diminished Heart Exam: Positive: Rate Normal, Irregular Rhythm Telemetry: Positive: Atrial fibrillation Abdomen Exam: Positive: Normal bowel sounds, Other (non-tender, not distended as noted yesterday.) Extremity Exam: Negative: Edema Neuro Exam: Positive: Normal Speech Psych Exam: Positive: Anxiety (seems more comfortable than yesterday) Assessment /Plan Problems (1) Acute respiratory failure with hypoxia Status: Acute Problem Text: 04/14/19: diuresed again overnight. Will monitor I/o. added on Chest PT. eval sputum cx given elevated WBC of 22,000 this am. Differential ordered as well. on 2LNC chronically at [facility]. Weaned down to 4LNC currently. On Day #3 Prednisone. 04/13/19: eval CXR this am. oxygenate appropriately. continue nebs. patient is DNR/DNI. 04/12/19: COPD exacerbation with RLL pneumonia 2 acute CHF +/- PN goal SaO2 88-92% stable on HF NC (2) TONE (acute kidney injury) Status: Acute Problem Text: 04/14 creat higher, likely need to back off from diuretics at this point but will defer to nephrology 04/13/19: Cr 1.4 this am. Sodium corrected at 138. potassium improved and stable. 04/12/19: Nephro following and managing Cr 2.5 today. Potassium remains elevated at 5.7. Received Insulin for hyperglycemia this morning. will repeat BMP later t kajal. 04/11 - Cre up to 3.57. K+ back up to 5.6 TONE originally thought to be related in part to retention from BPH, but no improvement with han in place. Clinically SKi seems secondary to Decompe nsated CHF, but developed hypotension with diuretics. CHAITANYA held Give Veltass x1 for hyperkalemia consult Nephrology - has followed with Dr. Rocío Chinchilla in past. 04/10 cr to 2.4 (from 2.2) K stable down to 5.0 (5.8) 2 acute retention/ACEI/hypotension (3) Acute on chronic diastolic CHF (congestive heart failure) Permanent Comment: Echo 04/13/19 1. Study is of fair technical quality. 2. Normal left ventricle (LV) size with mild LVH and overall preserved LV systolic function. Septal wall motion abnormality possibly related to coronary artery bypass surgery. 3. Aortic sclerosis resulting in mild insufficiency and trivial stenosis. 4. Moderate mitral and tricuspid insufficiency. 5. High central venous pressure and at least moderately severe pulmonary hypertension. Last Edited By: Claudia Snyder NP on April 13, 2019 07:35 Status: Acute Problem Text: 04/14: creat climbing. likely at dry weight. 04/13/19: see echo report. Will monitor on telemetry. Diuresed overnight due to hypoxia with -1L. 04/12/19: CT chest negative for pleural effusion/CHF presentation. Per Nephro: hypovolemia. Will monitor for volume overload with IVF replacement. 04/11 - Still appears decompensated. Has not olerated diuretics due to hypotension cont BARRON diet and FR May need to consider Dopamine precipitated by urinary retention 2 BPH/prostatitis -1.1L since admission 04/10 unable to diuresis more 2 SBP 80-90, held biso (has not received) and tamsul 0.4 BID (has han), + dig 250 x 1 as inotrope + AF rate control; continue BARRON/1500 FR; tc LD dopamine gtt (4) HAP (hospital-acquired pneumonia) Problem Text: 04/14: WBC climbing, needs antibiotic change. will go to imipenem/cilastin plus vanco. culture nares for MRSA, if neg then stop vanco. al so add macrolide for antiinflammatory effect. stop po levofloxacin. D3 levo (RD 750 q48H)-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-remains on vanco px 04/12/19: COntinue Levaquin: Renally dosed at 500 mg IV q 48 hrs 04/09 BCX2 P 04/09 UCX P (5) COPD (chronic obstructive pulmonary disease) Status: Chronic Problem Text: 04/12/19: Transitioned to prednisone po. Acapella added on to nebs. Continue duonebs and albuterol. remains on SM 60 BID, Duonebs q6H (6) Paroxysmal atrial fibrillation Status: Chronic Problem Text: 04/13: bisoprolol resumed for control of RVR, hypotension has resolved 04/12/19: rate controlled. apixiban RD for AC dig for RC Bisoprolol held due to hypotension (7) Depression Status: Chronic Problem Text: c mild dementia/acute delirium remains on HD sert/traz 100 QHS/alpraz 0.25 q6H prn 04/06 halo IM 2 x 2 made MORE agitated (8) Anemia Status: Chronic Problem Text: 04/11 - hgb down slightly - likely secondary to fluid retention and TONE Monitor trend with diuresis caution on asa/apix 04/10 9.1 (9) Urinary retention due to benign prostatic hyperplasia Status: Acute Problem Text: han in place since 04/09 04/10 held tamsul 2 hypotension, remains on levo, finast (10) Hypotension Status: Resolved Problem Text: favor 2 septic shock patient remains DNR/DNI (11) Dyspepsia Status: Chronic Problem Text: 04/10 increased favor 2 meds/hypotension; + sulcraf to HD omep 40 (12) DM2 (diabetes mellitus, type 2) Status: Chronic Problem Text: 04/14/19: Stopped sliding scale at hs. Levemir decreased to 40 units SC at hs. 04/13/19: hypoglycemia this am. monitor sugars and insulin needs. likely hypoglycemic due to poor intake yesterday. reduce levemir 04/12/19: hyperglycemic this am. Continue diabetic diet and monitor. Continues HD det 42 QHS c SSLI (13) DNR (do not resuscitate) Status: Chronic Problem Text: 04/10/19 reaffirms DNR/DNI (14) Constipation Status: Resolved Problem Text: 04/12/19: continue bowel meds. No BM x 5 days - Add bowel care Miralax, Senna S and dulc supp (15) History of Clostridium difficile colitis Status: Chronic Response to Treatment: Stable Problem Text: on po vanco for prophylaxis. Plan/VTE VTE Prophylaxis Ordered?: Yes Plan Advance Directives: DNR VS, I&O, 24H, Fishbone Vital Signs/I&O Vital Signs Date Time Temp Pulse Resp B/P (MAP) Pulse Ox O2 Delivery O2 Flow Rate FiO2 04/14/19 06:00 91 Nasal Cannula 4.0 04/14/19 05:11 97.9 86 21 116/59 (78) I&O- Last 24 Hours up to 6 AM 04/14/19 06:00 Intake Total 1190 ml Output Total 4550 ml Balance -3360 ml Laboratory Data 24H LABS Laboratory Tests 2 04/13/19 08:28: Blood Gas Bicarbonate Standard 24.7, Arterial Blood pH 7.452H, Arterial Blood Partial Pressure CO2 35.0, Arterial Blood Partial Pressure O2 71.2L, Arterial Blood Total CO2 25.0, Arterial Blood HCO3 23.9, Arterial Blood Base Excess 0.3, Arterial Blood Oxygen Saturation 94.7L 04/13/19 11:29: Bedside Glucose (Misc Panel) 262H 04/13/19 12:00: Anion Gap 11, Glomerular Filtration Rate 42.5, Blood Urea Nitrogen 78H, Creatinine 1.68H, Sodium Level 138, Potassium Level 5.0, Chloride Level 101, Carbon Dioxide Level 26, Calcium Level 9.4, Magnesium Level 2.4 04/13/19 16:38: Bedside Glucose (Misc Panel) 158H 04/13/19 20:13: Bedside Glucose (Misc Panel) 290H 04/14/19 05:11: Nucleated Red Blood Cells % (auto) 0.0, Blood Urea Nitrogen 73H, Creatinine 1.61H, Sodium Level 140, Potassium Level 3.5#, Chloride Level 102, Carbon Dioxide Level 29, Anion Gap 9, Glomerular Filtration Rate 44.6, Calcium Level 10.1, Phosphorus Level 3.6#, Albumin 2.6L CBC/BMP Laboratory Tests 04/13/19 12:00 Calcium Level 9.4 04/14/19 05:11 Red Blood Count 4.40, Mean Corpuscular Volume 82.5, Mean Corpuscular Hemoglobin 26.1 L, Mean Corpuscular Hemoglobin Concent 31.7 L, Red Cell Distribution Width 20.8 H, Anion Gap 9 Microbiology Microbiology 04/09/19 Blood Culture - Preliminary, Resulted No Growth after 72 hours. All specime... 04/09/19 Blood Culture - Preliminary, Resulted No Growth after 72 hours. All specime... 04/11/19 Respiratory Virus Panel (PCR) ([facility]) - Final, Complete 04/09/19 Urine Culture - Final, Complete Claudia Snyder April 14, 2019 07:48 Mark Tripp MD April 14, 2019 10:31
[2019-04-14 07:51] LABS: BASO # 0.1 10^3/uL (0.0-0.2); BASO % 0.6 % (0.0-1.0); LYMPH % 4.5 % (24.0-44.0); MONO # 1.7 10^3/uL (0.0-0.8); MONO % 7.8 % (0.0-5.0); NEUTROPHILS # 18.5 10^3/uL (1.8-7.7); NEUTROPHILS % 83.9 % (36.0-66.0)
[2019-04-14] MEDS: IPRATROPIUM 0.5MG/ALBUTEROL 2.5MG INH SOL UD 3ML (DUONEB)(J7620) NEB SCH ×4 (08:00→18:45)
[2019-04-14] MEDS: ADVAIR HFA 230/21MCG INHALER INH SCH ×2 (09:00→21:00)
[2019-04-14] MEDS: PATIROMER SORBITEX CALCIUM 8.4 GM POWDER PACKET (VELTASSA) PO SCH (09:37)
[2019-04-14] MEDS: MIRALAX *UNIT DOSE* 17GM PACKET PO SCH (09:37)
[2019-04-14] MEDS: BISOPROLOL FUMARATE 5 MG TAB PO SCH (09:38)
[2019-04-14] MEDS: OMEPRAZOLE 20 MG CAP PO SCH (09:38)
[2019-04-14] MEDS: APIXABAN 2.5 MG TAB (ELIQUIS) PO SCH ×2 (09:38→21:12)
[2019-04-14] MEDS: DOCUSATE SODIUM 100 MG CAP PO SCH ×2 (09:38→21:12)
[2019-04-14] MEDS: SERTRALINE HCL 50 MG TAB PO SCH (09:38)
[2019-04-14] MEDS: predniSONE 20 MG TAB PO SCH (09:38)
[2019-04-14] MEDS: ASPIRIN 81 MG CHEW TABLET PO SCH (09:38)
--- NOTE | 2019-04-14 10:17 | REP ---
Chest x-ray: Two views. History: Followup vascular congestion. Comparison study: April 13, 2019. Findings: Mild cardiomegaly is observed. The patient status post prior median sternotomy. Pulmonary vasculature is less cephalized and no longer felt to be congested. There are patchy opacities in the right inferior perihilar region and left perihilar region unchanged. No new infiltrate is seen. Impression: Improved pulmonary vasculature. Patchy bilateral basilar infiltrates. Electronically Signed by Ervin Lucio MD 04/14/2019 02:35 P
[2019-04-14] MEDS ORDERED: TORSEMIDE 20 MG TAB PO SCH (12:00)
[2019-04-14] MEDS ORDERED: VANCOMYCIN HCL 750 MG, VIAL MATE ADAPTER 1 EACH in D5W 250 ML IV ONE (12:00)
[2019-04-14] MEDS: AZITHROMYCIN 250 MG TAB PO SCH (12:34)
[2019-04-14] MEDS: FINASTERIDE 5 MG TAB PO SCH (12:34)
[2019-04-14] MEDS: IMIPENEM/CILASTATIN 250 MG in D5W MINI-BAG PLUS 100 ML IV SCH ×3 (14:21→23:09)
[2019-04-14] MEDS ORDERED: VANCOMYCIN HCL 500 MG in D5W MINI-BAG PLUS 100 ML IV ONE (16:00)
--- NOTE | 2019-04-14 20:40 | IPN ---
DATE: 04/14/2019 SUBJECTIVE: The patient was seen and examined at the bedside today morning. The patient is afebrile, hemodynamically stable. He reports that his breathing is getting better today as compared with yesterday. His renal function is stable with creatinine of 1.6. He was given a dose of Lasix intravenous (IV) yesterday. He made more than 4 liters of urine. OBJECTIVE: Vital signs: Temperature is 98.4 degrees Fahrenheit, blood pressure 126/56, pulse is 98, respiratory of 19, saturating 90% on nasal cannula at 4 liters. Intake and output: Urine output recorded is 4.4 liters yesterday and 2 liters so far today since overnight. Weight in the bed scale is as 68.8 kg. PHYSICAL EXAMINATION:: GENERAL: The patient is awake, alert, oriented times three, lying in mild respiratory distress. HEAD AND NECK: Extraocular muscles intact. Pupils equally round and reactive to light. Mucous membranes are moist. Neck is supple. Moderately elevated jugular venous distention (JVD). CARDIOVASCULAR: S1, S2. Edema 1+ of the ankles only. RESPIRATORY: Decreased breath sounds at the bases. Diffuse expiratory rhonchi bilaterally at the bases up to mid lung zones. ABDOMEN: Soft, obese. Positive bowel sounds. Nontender. GENITOURINARY: He has an indwelling Chaidez catheter. MUSCULOSKELETAL: Clubbing of the fingernails. No cyanosis of the extremities. CENTRAL NERVOUS SYSTEM: No focal deficit. Power is 5/5 in all extremities. LABORATORY REVIEW: CBC showed a WBC of 22.8, hemoglobin 11.5, platelets of 443. BMP showed sodium 140, potassium 3.5, chloride 102, bicarbonate 29, BUN 73, creatinine is 1.61, calcium 10.1, phosphorus is 3.6. Microbiology: Sputum culture is still pending. IMAGING STUDIES: A repeat chest x-ray was done today, which showed improved pulmonary vasculature, patchy bilateral basilar infiltrates. CURRENT INPATIENT MEDICATIONS: The patient's medications were all reviewed by me. He was given a dose of vancomycin IV today, and he has been started on Primaxin 200 mg IV every 6 hours . He was given another dose of Lasix 80 mg IV times one dose overnight, and I have started him on torsemide 20 mg by mouth daily. I am going to increase the dose to 40 mg by mouth daily now. ASSESSMENT AND PLAN: 1. Acute renal failure superimposed on chronic kidney disease. Patient's renal function is stable. Creatinine has been fluctuating at 1.6 despite aggressive IV diuresis. Okay to continue diuretics at this point. 2. Acute on chronic diastolic congestive heart failure. The patient got another dose of IV Lasix overnight. He has been started on oral diuretics as well, torsemide 40 mg by mouth daily. 3. Bilateral lower lobe infiltrates and leukocytosis. The patient has been started on Primaxin and vancomycin by primary team. Sputum cultures are pending. 4. Acute chronic obstructive pulmonary disease (COPD) exacerbation. The patient continues to be on steroids and nebulizations. IV antibiotics have been changed. 5. Iron deficiency anemia. The patient got two doses of IV Venofer. Hemoglobin level is improved to 11.5 now.
[2019-04-14] MEDS: SENNA 8.6 MG TAB (SENOKOT) PO SCH (21:12)
[2019-04-14] MEDS: traZODone 100 MG TAB PO SCH (21:12)
[2019-04-14] MEDS: IRON SUCROSE 200 MG in NS 100 ML IV SCH (21:34)
[2019-04-14] MEDS ORDERED: HumaLOG INSULIN (NovoLOG) PER UNIT SC ONE (21:45)
[2019-04-14] MEDS: LEVEMIR (INSULIN DETEMIR) 1 UNITS/0.01ML SC SCH (22:02)
[2019-04-15] VITALS (11 sets, daily range): BP systolic 127–158; BP diastolic 64–94; O2SAT 89–99
[2019-04-15] MEDS: VANCOMYCIN HCL 1,000 MG, VIAL MATE ADAPTER 1 EACH in D5W 250 ML IV SCH ×2 (00:29→18:22)
[2019-04-15] MEDS: VANCOMYCIN ORAL SOL 250MG/5ML ORAL SYRINGE PO SCH ×4 (00:29→18:21)
[2019-04-15] MEDS: IPRATROPIUM 0.5MG/ALBUTEROL 2.5MG INH SOL UD 3ML (DUONEB)(J7620) NEB PRN (04:20)
[2019-04-15] MEDS: IMIPENEM/CILASTATIN 250 MG in D5W MINI-BAG PLUS 100 ML IV SCH ×3 (05:43→19:53)
[2019-04-15 05:58] LABS: BASO # 0.1 10^3/uL (0.0-0.2); BASO % 0.3 % (0.0-1.0); EOS # 0.1 10^3/uL (0.0-0.50); EOS % 0.3 % (0.0-3.0); HEMATOCRIT 35.5 % (42.0-52.0); HEMOGLOBIN 11.4 g/dl (13.5-17.5); LYMPH # 1.2 10^3/uL (1.5-4.5); LYMPH % 6.5 % (24.0-44.0); MEAN CORPUSCULAR HEMOGLOBIN 26.3 pg (27.0-33.0); MEAN CORPUSCULAR HGB CONC 32.1 g/dl (32.0-36.5); MONO % 5.2 % (0.0-5.0); NEUTROPHILS # 15.9 10^3/uL (1.8-7.7); NEUTROPHILS % 83.5 % (36.0-66.0); PLATELET COUNT, AUTOMATED 432 10^3/uL (150-450); RED BLOOD COUNT 4.33 10^6/uL (4.30-6.10)
[2019-04-15 06:29] LABS: ALBUMIN 2.2 GM/DL (3.2-5.2); BILIRUBIN,TOTAL 0.7 MG/DL (0.2-1.0); CALCIUM LEVEL 8.9 MG/DL (8.8-10.2); CREATININE FOR GFR 1.44 MG/DL (0.70-1.30); GLOMERULAR FILTRATION RATE 50.8 (>42); POTASSIUM SERUM 3.3 MEQ/L (3.5-5.1); TOTAL PROTEIN 6.9 GM/DL (6.4-8.2)
[2019-04-15] MEDS: ADVAIR HFA 230/21MCG INHALER INH SCH ×2 (07:25→21:00)
[2019-04-15] MEDS: IPRATROPIUM 0.5MG/ALBUTEROL 2.5MG INH SOL UD 3ML (DUONEB)(J7620) NEB SCH ×4 (07:25→19:38)
[2019-04-15] MEDS: HumaLOG INSULIN (NovoLOG) PER UNIT SC SCH ×3 (08:32→18:21)
[2019-04-15] MEDS: APIXABAN 2.5 MG TAB (ELIQUIS) PO SCH ×2 (08:33→20:11)
[2019-04-15] MEDS: ASPIRIN 81 MG CHEW TABLET PO SCH (08:33)
[2019-04-15] MEDS: predniSONE 20 MG TAB PO SCH (08:33)
[2019-04-15] MEDS: OMEPRAZOLE 20 MG CAP PO SCH (08:33)
[2019-04-15] MEDS: AZITHROMYCIN 250 MG TAB PO SCH (08:33)
[2019-04-15] MEDS: MIRALAX *UNIT DOSE* 17GM PACKET PO SCH (08:33)
[2019-04-15] MEDS: DOCUSATE SODIUM 100 MG CAP PO SCH ×2 (08:33→20:11)
[2019-04-15] MEDS: SERTRALINE HCL 50 MG TAB PO SCH (08:33)
[2019-04-15] MEDS: TORSEMIDE 20 MG TAB PO SCH (08:34)
[2019-04-15] MEDS: BISOPROLOL FUMARATE 5 MG TAB PO SCH (08:34)
[2019-04-15] MEDS ORDERED: POTASSIUM CHLORIDE 10 MEQ SR TABLET PO ONE (09:30)
[2019-04-15] MEDS: traMADol 50 MG TAB PO PRN (10:18)
[2019-04-15] MEDS: FINASTERIDE 5 MG TAB PO SCH (12:42)
[2019-04-15] MEDS: ALPRAZolam 0.25 MG TAB PO PRN (12:56)
--- NOTE | 2019-04-15 13:13 | IPNPDOC ---
Subjective Date Seen The patient was seen on 04/15/19. Subjective Chief Complaint/HPI trouble sleeping ENT: Denies: Head Aches Pulmonary: Reports: Cough; Denies: Pleuritic Chest Pain Cardiovascular: Denies: Chest Pain, Palpitations Gastrointestinal: Denies: Nausea, Abdominal Pain Genitourinary: Denies: Dysuria Hematologic: Denies: Bruising Endocrine: Reports: Polyuria (notes effect from his diuretic med) Psych: Reports: Anxiety Objective Physical Examination General Exam: Positive: Alert, Moderate Distress, Other Eye Exam: Positive: EOMI Neck Exam: Positive: JVD Chest Exam: Positive: Rales, Rhonchi, Wheezing, Diminished Heart Exam: Positive: Rate Normal, Irregular Rhythm Telemetry: Positive: Atrial fibrillation Abdomen Exam: Positive: Normal bowel sounds, Other Extremity Exam: Negative: Edema Neuro Exam: Positive: Normal Speech Psych Exam: Positive: Anxiety Assessment /Plan Problems (1) Acute respiratory failure with hypoxia Status: Acute Problem Text: 04/15 continues significant diuresis with not PRN diuretics needed overnight. WBC improved a bit overnight. 04/14/19: diuresed again overnight. Will monitor I/o. added on Chest PT. eval sputum cx given elevated WBC of 22,000 this am. Differential ordered as well. on 2LNC chronically at [facility]. Weaned down to 4LNC currently. On Day #3 Prednisone. 04/13/19: eval CXR this am. oxygenate appropriately. continue nebs. patient is DNR/DNI. 04/12/19: COPD exacerbation with RLL pneumonia 2 acute CHF +/- PN goal SaO2 88-92% stable on HF NC (2) TONE (acute kidney injury) Status: Acute Problem Text: 04/15 despite changing to torsemide and continued diuresis, his Creatinine has improved since yeterday. K is down to 3.3 however. 04/14 creat higher, likely need to back off from diuretics at this point but will defer to nephrology 04/13/19: Cr 1.4 this am. Sodium corrected at 138. potassium improved and stable. 04/12/19: Nephro following and managing Cr 2.5 today. Potassium remains elevated at 5.7. Received Insulin for hyperglycemia this morning. will repeat BMP later today. 04/11 - Cre up to 3.57. K+ back up to 5.6 TONE originally thought to be related in part to retention from BPH, but no improvement with han in place. Clinically SKi seems secondary to Decompensated CHF, but developed hypotension with diuretics. CHAITANYA held Give Veltass x1 for hyperkalemia consult Nephrology - has followed with Dr. Rocío Chinchilla in past. 04/10 cr to 2.4 (from 2.2) K stable down to 5.0 (5.8) 2 acute retention/ACEI/hypotension (3) Acute on chronic diastolic CHF (congestive heart failure) Permanent Comment: Echo 04/13/19 1. Study is of fair technical quality. 2. Normal left ventricle (LV) size with mild LVH and overall preserved LV systolic function. Septal wall motion abnormality possibly related to coronary artery bypass surgery. 3. Aortic sclerosis resulting in mild insufficiency and trivial stenosis. 4. Moderate mitral and tricuspid insufficiency. 5. High central venous pressure and at least moderately severe pulmonary hypertension. Last Edited By: Claudia Snyder NP on April 13, 2019 07:35 Status: Acute Problem Text: 04/15: creatinine improved since yesterday with continued diuresis 04/14: creat climbing. likely at dry weight. 04/13/19: see echo report. Will monitor on telemetry. Diuresed overnight due to hypoxia with -1L. 04/12/19: CT chest negative for pleural effusion/CHF presentation. Per Nephro: hypovolemia. Will monitor for volume overload with IVF replacement. 04/11 - Still appears decompensated. Has not olerated diuretics due to hypotension cont BARRON diet and FR May need to consider Dopamine precipitated by urinary retention 2 BPH/prostatitis -1.1L since admission 04/10 unable to diuresis more 2 SBP 80-90, held biso (has not received) and tamsul 0.4 BID (has han), + dig 250 x 1 as inotrope + AF rate control; continue BARRON/1500 FR; tc LD dopamine gtt (4) HAP (hospital-acquired pneumonia) Problem Text: 04/15 WBC improved somewhat. no fevers; cough, productive continues 04/14: WBC climbing, needs antibiotic change. will go to imipenem/cilastin plus vanco. culture nares for MRSA, if neg then stop vanco. also add macrolide for antiinflammatory effect. stop po levofloxacin. 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 04/12/19: Transitioned to prednisone po. Acapella added on to nebs. Continue duonebs and albuterol. remains on SM 60 BID, Duonebs q6H (6) Paroxysmal atrial fibrillation Status: Chronic Problem Text: 04/15 rate 96 to about 104 may need increase in bisoprolol dose. 04/13: bisoprolol resumed for control of RVR, hypotension has resolved 04/12/19: rate controlled. apixiban RD for AC dig for RC Bisoprolol held due to hypotension (7) Depression Status: Chronic Problem Text: 04/15 with accompanying trouble sleeping, anxiety. will increase trazodone to 150 and change prn alprazolam to 0.5mg q8 hours prn. continue current SSRI c mild dementia/acute delirium remains on HD sert/traz 100 QHS/alpraz 0.25 q6H prn 04/06 halo IM 2 x 2 made MORE agitated (8) Anemia Status: Chronic Problem Text: 04/15 improved after Fe admin 04/11 - hgb down slightly - likely secondary to fluid retention and TONE Monitor trend with diuresis caution on asa/apix 04/10 9.1 (9) Urinary retention due to benign prostatic hyperplasia Status: Acute Problem Text: han in place since 04/09 04/10 held tamsul 2 hypotension, remains on levo, finast (10) Hypotension Status: Resolved Problem Text: favor 2 septic shock patient remains DNR/DNI (11) Dyspepsia Status: Chronic Problem Text: 04/10 increased favor 2 meds/hypotension; + sulcraf to HD omep 40 (12) DM2 (diabetes mellitus, type 2) Status: Chronic Problem Text: 04/14/19: Stopped sliding scale at hs. Levemir decreased to 40 units SC at hs. 04/13/19: hypoglycemia this am. monitor sugars and insulin needs. likely hypoglycemic due to poor intake yesterday. reduce levemir 04/12/19: hyperglycemic this am. Continue diabetic diet and monitor. Continues HD det 42 QHS c SSLI (13) DNR (do not resuscitate) Status: Chronic Problem Text: 04/10/19 reaffirms DNR/DNI (14) Constipation Status: Resolved Problem Text: 04/12/19: continue bowel meds. No BM x 5 days - Add bowel care Miralax, Senna S and dulc supp (15) History of Clostridium difficile colitis Status: Chronic Response to Treatment: Stable Problem Text: on po vanco for prophylaxis. Plan/VTE VTE Prophylaxis Ordered?: Yes Plan Advance Directives: DNR VS, I&O, 24H, Fishbone Vital Signs/I&O Vital Signs Date Time Temp Pulse Resp B/P (MAP) Pulse Ox O2 Delivery O2 Flow Rate FiO2 04/15/19 12:00 98.7 97 22 158/68 (98) 93 4.0 04/15/19 06:00 Nasal Cannula I&O- Last 24 Hours up to 6 AM 04/15/19 06:00 Intake Total 1620 ml Output Total 3380 ml Balance -1760 ml Laboratory Data 24H LABS Laboratory Tests 2 04/14/19 16:47: Bedside Glucose (Misc Panel) 385H 04/14/19 20:32: Bedside Glucose (Misc Panel) > 600*H 04/14/19 20:45: Bedside Glucose Confirm (Misc) 602*H 04/14/19 21:25: Bedside Glucose (Misc Panel) 543*H 04/15/19 00:08: Bedside Glucose (Misc Panel) 421H 04/15/19 05:10: Immature Granulocyte % (Auto) 4.2H, White Blood Count 19.0H, Red Blood Count 4.33, Hemoglobin 11.4L, Hematocrit 35.5L, Mean Corpuscular Volume 82.0, Mean Corpuscular Hemoglobin 26.3L, Mean Corpuscular Hemoglobin Concent 32.1, Red Cell Distribution Width 20.0H, Platelet Count 432, Neutrophils (%) (Auto) 83.5H, L ymphocytes (%) (Auto) 6.5L, Monocytes (%) (Auto) 5.2H, Eosinophils (%) (Auto) 0.3, Basophils (%) (Auto) 0.3, Neutrophils # (Auto) 15.9H, Lymphocytes # (Auto) 1.2L, Monocytes # (Auto) 1.0H, Eosinophils # (Auto) 0.1, Basophils # (Auto) 0.1, Nucleated Red Blood Cells % (auto) 0.0, Anion Gap 7L, Glomerular Filtration Rate 50.8, Blood Urea Nitrogen 65H, Creatinine 1.44H, Sodium Level 136, Potassium Lev el 3.3L, Chloride Level 98, Carbon Dioxide Level 31, Calcium Level 8.9, Aspartate Amino Transf (AST/SGOT) 14, Alanine Aminotransferase (ALT/SGPT) 22, Alkaline Phosphatase 70, Total Bilirubin 0.7, Total Protein 6.9, Albumin 2.2L, Albumin/Globulin Ratio 0.47L 04/15/19 11:54: Bedside Glucose (Misc Panel) 239H CBC/BMP Laboratory Tests 04/15/19 05:10 Red Blood Count 4.33, Mean Corpuscular Volume 82.0, Mean Corpuscular Hemoglobin 26.3 L, Mean Corpuscular Hemoglobin Concent 32.1, Red Cell Distribution Width 20.0 H, Neutrophils (%) (Auto) 83.5 H, Lymphocytes (%) (Auto) 6.5 L, Monocytes (%) (Auto) 5.2 H, Eosinophils (%) (Auto) 0.3, Basophils (%) (Auto) 0.3, N eutrophils # (Auto) 15.9 H, Lymphocytes # (Auto) 1.2 L, Monocytes # (Auto) 1.0 H, Eosinophils # (Auto) 0.1, Basophils # (Auto) 0.1, Calcium Level 8.9, Aspartate Amino Transf (AST/SGOT) 14, Alanine Aminotransferase (ALT/SGPT) 22, Alkaline Phosphatase 70, Total Bilirubin 0.7, Total Protein 6.9, Albumin 2.2 L Microbiology Microbiology 04/09/19 Blood Culture - Final, Complete NO GROWTH AFTER 5 DAYS 04/09/19 Blood Culture - Final, Complete NO GROWTH AFTER 5 DAYS 04/14/19 MRSA Screen, Received Pending 04/14/19 Gram Stain - Final, Resulted 04/14/19 Sputum Culture, Resulted Pending 04/11/19 Respiratory Virus Panel (PCR) ([facility]) - Final, Complete 04/09/19 Urine Culture - Final, Complete Mark Tripp MD April 15, 2019 13:13
--- NOTE | 2019-04-15 14:07 | REP ---
Clinical: Follow up right-sided infiltrates/CHF. Comparison: 04/14/2019, 04/09/2019. Findings: Diffuse chronic bilateral pleuroparenchymal changes are appreciated and bilateral infiltrates as well as pulmonary vascular congestion appear to have improved. No new area of consolidation or effusion is appreciated. No pneumothorax. Mediastinum and cardiac silhouette are stable. The skeletal structures demonstrate age-related degenerative changes. Impression: Current examination demonstrates predominantly chronic appearing pleuroparenchymal changes and the recently noted bilateral infiltrates and pulmonary vascular congestion has considerably improved / nearly resolved. Electronically Signed by Roni Patel MD 04/15/2019 01:59 P
[2019-04-15] MEDS: SENNA 8.6 MG TAB (SENOKOT) PO SCH (20:11)
[2019-04-15] MEDS: LEVEMIR (INSULIN DETEMIR) 1 UNITS/0.01ML SC SCH (20:11)
[2019-04-15] MEDS: traZODone 50 MG TAB PO SCH (20:11)
[2019-04-16] MEDS: VANCOMYCIN ORAL SOL 250MG/5ML ORAL SYRINGE PO SCH ×4 (00:04→17:48)
[2019-04-16] MEDS: IMIPENEM/CILASTATIN 250 MG in D5W MINI-BAG PLUS 100 ML IV SCH ×4 (00:04→17:48)
[2019-04-16] MEDS: IPRATROPIUM 0.5MG/ALBUTEROL 2.5MG INH SOL UD 3ML (DUONEB)(J7620) NEB PRN (04:27)
[2019-04-16] MEDS: traMADol 50 MG TAB PO PRN (05:55)
[2019-04-16 06:00] VITALS: BP 127/67
[2019-04-16 06:41] LABS: MEAN CORPUSCULAR HEMOGLOBIN 26.4 pg (27.0-33.0); MEAN CORPUSCULAR HGB CONC 31.4 g/dl (32.0-36.5); MEAN CORPUSCULAR VOLUME 83.9 fl (80.0-96.0); PLATELET COUNT, AUTOMATED 403 10^3/uL (150-450); RED BLOOD COUNT 4.17 10^6/uL (4.30-6.10); WHITE BLOOD COUNT 15.4 10^3/uL (4.0-10.0)
[2019-04-16 07:04] LABS: ALBUMIN 2.1 GM/DL (3.2-5.2); BILIRUBIN,TOTAL 0.7 MG/DL (0.2-1.0); CALCIUM LEVEL 8.6 MG/DL (8.8-10.2); CREATININE FOR GFR 1.64 MG/DL (0.70-1.30); GLOMERULAR FILTRATION RATE 43.7 (>42); POTASSIUM SERUM 3.8 MEQ/L (3.5-5.1); TOTAL PROTEIN 6.7 GM/DL (6.4-8.2)
[2019-04-16] MEDS: ADVAIR HFA 230/21MCG INHALER INH SCH ×2 (07:16→20:17)
[2019-04-16 07:43] LABS: ATYPICAL LYMPH 2 % (0-5); LYMPHOCYTES 8 % (16-52); METAMYELOCYTES 3 % (0-0); MONOCYTES 4 % (0-8); MYELOCYTES 2 % (0-0); NEUTROPHILS 80 % (35-75)
[2019-04-16 07:44] LABS: ANISOCYTOSIS 1+; PLATELET ESTIMATE NORMAL (NORMAL)
[2019-04-16 08:00] VITALS: O2SAT 99
[2019-04-16] MEDS: IPRATROPIUM 0.5MG/ALBUTEROL 2.5MG INH SOL UD 3ML (DUONEB)(J7620) NEB SCH ×4 (08:00→20:00)
[2019-04-16] MEDS: MIRALAX *UNIT DOSE* 17GM PACKET PO SCH (09:00)
[2019-04-16] MEDS: ASPIRIN 81 MG CHEW TABLET PO SCH (09:08)
[2019-04-16] MEDS: HumaLOG INSULIN (NovoLOG) PER UNIT SC SCH ×3 (09:08→17:02)
[2019-04-16] MEDS: APIXABAN 2.5 MG TAB (ELIQUIS) PO SCH ×2 (09:09→21:21)
[2019-04-16] MEDS: OMEPRAZOLE 20 MG CAP PO SCH (09:09)
[2019-04-16] MEDS: DOCUSATE SODIUM 100 MG CAP PO SCH ×2 (09:09→21:21)
[2019-04-16] MEDS: SERTRALINE HCL 50 MG TAB PO SCH (09:10)
[2019-04-16] MEDS: TORSEMIDE 20 MG TAB PO SCH (09:10)
[2019-04-16] MEDS: AZITHROMYCIN 250 MG TAB PO SCH (09:10)
[2019-04-16] MEDS: predniSONE 20 MG TAB PO SCH (09:10)
[2019-04-16] MEDS: BISOPROLOL FUMARATE 5 MG TAB PO SCH (09:12)
--- NOTE | 2019-04-16 09:33 | IPN ---
DATE OF SERVICE: 04/15/2019 SUBJECTIVE: The patient was seen and examined at the bedside today morning. The patient reports that he is having difficulty sleeping. Otherwise his breathing is better. His shortness of breath is improving. His renal function is stable and actually getting better, creatinine is down to 1.4. Patient has a very good urine output response to the diuretics. He is otherwise afebrile and hemodynamically stable. OBJECTIVE: Vital signs: Temperature is 98.7 degrees Fahrenheit. Blood pressure 158/68, pulse is 97, respiratory of 22, saturating 93% on 4 liters nasal cannula. Intake and output: Urine output recorded as 4.6 liters yesterday, 2 liters so far today since overnight. Weight on the bed scale is 68 kg. PHYSICAL EXAMINATION: General: The patient is awake, alert, oriented times three, laying in bed, mild respiratory distress. Head and neck exam: Extraocular muscles intact. Pupils equally round and reactive to light. Mucous membranes are moist. Neck is supple. Mildly elevated JVD. Cardiovascular: S1, S2. Trace edema of the bilateral lower extremities. Respiratory: Decreased breath sounds at the bases with mild expiratory rhonchi at the bases. Abdomen: Soft, obese, positive bowel sounds. Nontender. Genitourinary: Indwelling Chaidez catheter. Urine in the bag is clear. Musculoskeletal: Clubbing of the fingernails. Otherwise no cyanosis. PRIMARY HEALTH ORGANISATION MANAGER: No focal deficit. Power is 5/5 in all extremities. LAB REVIEW: CBC showed a WBC of 19, hemoglobin is 11.4, platelets are 432. BMP showed sodium of 36, potassium 3.3, chloride 98, bicarb 31, BUN 65, creatinine is 1.4. Toxicology: Vancomycin level is 16. IMAGING STUDIES: A chest x-ray was done today which showed significant improvement of the pulmonary vascular congestion. CURRENT INPATIENT MEDICATIONS: The patient's medications were all reviewed by me. He is currently on IV Primaxin 250 mg every six hourly and he is also getting IV vancomycin. Patient is currently getting torsemide 40 mg by mouth daily. No other change in the medications today as compared with yesterday. ASSESSMENT/PLAN: 1. Acute renal failure. It was associated with decompensated congestive heart failure (CHF). Renal function is improving, creatinine is down to 1.3. Okay to continue the diuretics. 2. Hypokalemia. It is secondary to aggressive diuresis. The patient was given a dose of potassium chloride. 3. Acute on chronic diastolic congestive heart failure. The patient is having good urine output. Respiratory status and chest x-ray is improving. Continue current dose of torsemide 40 mg p.o. daily. 4. Health care associated pneumonia. The patient is currently on vancomycin, Primaxin. White cell count is improving. 5. Acute chronic obstructive pulmonary disease (COPD) exacerbation. The patient continues to be on nebulizations and prednisone. Rest of the management is as per primary team. Volume status is improving. 6. Iron-deficiency anemia. The patient is getting IV Venofer. Hemoglobin level is improving.
[2019-04-16] MEDS: FINASTERIDE 5 MG TAB PO SCH (12:58)
[2019-04-16] MEDS: VANCOMYCIN HCL 1,000 MG, VIAL MATE ADAPTER 1 EACH in D5W 250 ML IV SCH (12:59)
[2019-04-16] MEDS: ALPRAZolam 0.5 MG TAB PO PRN (17:02)
[2019-04-16 19:28] VITALS: BP 102/57
--- NOTE | 2019-04-16 20:22 | IPNPDOC ---
Subjective Date Seen The patient was seen on 04/16/19. Subjective Chief Complaint/HPI Mr. Cruz reports he is starting to feel better. He is not exactly sure what is helping, but something is. He has no acute concerns or complaints. Constitutional: Denies: Chills, Fever Pulmonary: Reports: Dyspnea, Cough Cardiovascular: Denies: Chest Pain, Palpitations Gastrointestinal: Denies: Nausea Objective Physical Examination General Exam: Positive: Alert, Cooperative (laying in bed watching television when I entered his room), No Acute Distress Eye Exam: Positive: Conjunctiva & lids normal ENT Exam: Positive: Mucous membr. moist/pink Neck Exam: Negative: Lymphadenopathy Chest Exam: Positive: Rales, Wheezing, Diminished Heart Exam: Positive: Rate Normal, Irregular Rhythm Telemetry: Positive: Atrial fibrillation Abdomen Exam: Positive: Normal bowel sounds, Soft; Negative: Tenderness Extremity Exam: Negative: Edema Neuro Exam: Positive: Normal Speech Assessment /Plan Problems (1) Acute respiratory failure with hypoxia Status: Acute Response to Treatment: Improving Problem Specific Plan: Monitor Clinically Problem Text: He is maintaining his sats well on about 4L via NC. His goal SaO2 88-92% and often he is running higher than this. (2) TONE (acute kidney injury) Status: Acute Problem Text: He continues to diurese with torsemide. His renal fx was down a little again today, but he is feeling pretty good. Nephrology is assisting in management of his renal function. Will continue current regimen for now and monitor. (3) Acute on chronic diastolic CHF (congestive heart failure) Permanent Comment: Echo 04/13/19 1. Study is of fair technical quality. 2. Normal left ventricle (LV) size with mild LVH and overall preserved LV systolic function. Septal wall motion abnormality possibly related to coronary artery bypass surgery. 3. Aortic sclerosis resulting in mild insufficiency and trivial stenosis. 4. Moderate mitral and tricuspid insufficiency. 5. High central venous pressure and at least moderately severe pulmonary hypertension. Last Edited By: Claudia Snyder NP on April 13, 2019 7:35 am Status: Acute Problem Text: He continues to diurese and is down over 1 liter in the last 24h. His pressures and creatinine are tolerating the diuresis just fine at this po int. Continue current regimen, monitor. (4) HAP (hospital-acquired pneumonia) Problem Text: He feels that he is improving today and this is just in the right time for the Primaxin to have made the difference. I believe that this antibiotic is helping him and we should continue with this regimen. (5) COPD (chronic obstructive pulmonary disease) Status: Chronic Problem Text: He remains on prednisone 40mg po. As he is starting to improve we may be able to start tapering soon, however, he still has significant wheezing. Continue duonebs, Acapella and albuterol. (6) Paroxysmal atrial fibrillation Status: Chronic Problem Text: Rate is in the 90s and I feel that this is reasonably controlled. I suspect that some of this is physiologic as he is dealing with several other hypoxic inducing conditions. Will monitor for now. (7) Depression Status: Chronic Problem Text: Yesterday his trazodone was increased to 150 and change prn alprazolam to 0.5mg q8 hours prn. He seems to be doing ok with this combination. Continue current SSRI. (8) Anemia Status: Chronic Problem Text: Hb is relatively stable. Down a little, but probably physiologic fluctuation. Will continue to monitor for now. (9) Urinary retention due to benign prostatic hyperplasia Status: Acute Problem Text: Chaidez in place since 04/09. His tamsulosin was held 2/2 hypotension. He remains on finasteride. May consider resuming his tamsulosin if his BP remains good. (10) Dyspepsia Status: Chronic Response to Treatment: Stable Problem Text: His symptoms seem to be stable on sucralfate added to HD omeprazole 40mg. (11) DM2 (diabetes mellitus, type 2) Status: Chronic Problem Text: He has been running very high today. He received 26 units of SSI in the last 24h, so I will add 13 units to his basal insulin tonight. This will take him from 40 units to 53 units starting tonight. Will monitor for hypoglycemia; though none is charted he is reported to have had some earlier in this admission. (12) History of Clostridium difficile colitis Status: Chronic Response to Treatment: Stable Problem Text: On PO Vanco for prophylaxis. Continue this while he is receiving abx for his pneumonia. (13) DNR (do not resuscitate) Status: Chronic Problem Text: 04/10/19 reaffirms DNR/DNI (14) Constipation Status: Resolved Problem Text: Continue Miralax, Senna S and dulcolax suppository as needed. (15) Hypotension Status: Resolved Plan/VTE VTE Prophylaxis Ordered?: Yes (Eliquis) Plan Advance Directives: DNR VS, I&O, 24H, Fishbone Vital Signs/I&O Vital Signs Date Time Temp Pulse Resp B/P (MAP) Pulse Ox O2 Delivery O2 Flow Rate FiO2 04/16/19 20:17 Nasal Cannula 4.0 04/16/19 14:00 97.8 81 18 97 04/16/19 09:12 130/71 I&O- Last 24 Hours up to 6 AM 04/16/19 06:00 Intake Total 660 ml Output Total 1875 ml Balance -1215 ml Laboratory Data 24H LABS Laboratory Tests 2 04/16/19 05:50: Immature Granulocyte % (Auto) , Nucleated Red Blood Cells % (auto) 0.0, Neutrophils 80H, Band Neutrophils 1, Lymphocytes (Manual) 8L, Monocytes (Manual) 4, Metamyelocytes 3H, Myelocytes 2H, Atypical Lymphocytes 2, Platelet Estimate NORMAL, Anisocytosis 1+, Anion Gap 7L, Glomerular Filtration Rate 43.7, Blood Urea Nitrogen 81H, Creatinine 1.64H, Sodium Level 136, Potassium Level 3.8, Chloride Level 97L, Carbon Dioxide Level 32, Calcium Level 8.6L, Aspartate Amino Transf (AST/SGOT) 11, Alanine Aminotransferase (ALT/SGPT) 19, Alkaline Phosphatase 65, Total Bilirubin 0.7, Total Protein 6.7, Albumin 2.1L, Albumin/Globulin Ratio 0.46L 04/16/19 11:07: Bedside Glucose (Misc Panel) 272H 04/16/19 16:43: Bedside Glucose (Misc Panel) 487H CBC/BMP Laboratory Tests 04/16/19 05:50 Red Blood Count 4.17 L, Mean Corpuscular Volume 83.9, Mean Corpuscular H emoglobin 26.4 L, Mean Corpuscular Hemoglobin Concent 31.4 L, Red Cell Distribution Width 19.8 H, Calcium Level 8.6 L, Aspartate Amino Transf (AST/SGOT) 11, Alanine Aminotransferase (ALT/SGPT) 19, Alkaline Phosphatase 65, Total Bilirubin 0.7, Total Protein 6.7, Albumin 2.1 L Microbiology Microbiology 04/09/19 Blood Culture - Final, Complete NO GROWTH AFTER 5 DAYS 04/09/19 Blood Culture - Final, Complete NO GROWTH AFTER 5 DAYS 04/14/19 MRSA Screen - Final, Complete 04/14/19 Gram Stain - Final, Complete 04/14/19 Sputum Culture - Final, Complete 04/11/19 Respiratory Virus Panel (PCR) ([facility]) - Final, Complete 04/09/19 Urine Culture - Final, Complete Mervin Hodge MD Apr 16, 2019 8:22 pm
[2019-04-16 20:30] VITALS: O2SAT 96
[2019-04-16] MEDS: IRON SUCROSE 200 MG in NS 100 ML IV SCH (21:21)
[2019-04-16] MEDS: traZODone 50 MG TAB PO SCH (21:21)
[2019-04-16] MEDS: SENNA 8.6 MG TAB (SENOKOT) PO SCH (21:21)
[2019-04-16] MEDS: LEVEMIR (INSULIN DETEMIR) 1 UNITS/0.01ML SC SCH (21:22)
[2019-04-16 22:00] VITALS: BP 102/57
[2019-04-17] MEDS: VANCOMYCIN ORAL SOL 250MG/5ML ORAL SYRINGE PO SCH ×5 (00:05→23:59)
[2019-04-17] MEDS: IMIPENEM/CILASTATIN 250 MG in D5W MINI-BAG PLUS 100 ML IV SCH ×5 (00:14→23:59)
[2019-04-17] MEDS: IPRATROPIUM 0.5MG/ALBUTEROL 2.5MG INH SOL UD 3ML (DUONEB)(J7620) NEB PRN (02:37)
[2019-04-17 05:54] LABS: BASO % 0.2 % (0.0-1.0); EOS # 0.2 10^3/uL (0.0-0.50); EOS % 1.1 % (0.0-3.0); HEMATOCRIT 34.5 % (42.0-52.0); HEMOGLOBIN 10.9 g/dl (13.5-17.5); LYMPH # 1.6 10^3/uL (1.5-4.5); LYMPH % 9.5 % (24.0-44.0); MEAN CORPUSCULAR HEMOGLOBIN 26.1 pg (27.0-33.0); MEAN CORPUSCULAR HGB CONC 31.6 g/dl (32.0-36.5); MEAN CORPUSCULAR VOLUME 82.7 fl (80.0-96.0); MONO # 0.8 10^3/uL (0.0-0.8); MONO % 4.6 % (0.0-5.0); NEUTROPHILS % 79.6 % (36.0-66.0); PLATELET COUNT, AUTOMATED 416 10^3/uL (150-450); RED BLOOD COUNT 4.17 10^6/uL (4.30-6.10); WHITE BLOOD COUNT 16.4 10^3/uL (4.0-10.0)
[2019-04-17 06:00] VITALS: BP 130/53
[2019-04-17 06:16] LABS: ALBUMIN 2.1 GM/DL (3.2-5.2); BILIRUBIN,TOTAL 0.5 MG/DL (0.2-1.0); CALCIUM LEVEL 8.4 MG/DL (8.8-10.2); CREATININE FOR GFR 1.5 MG/DL (0.70-1.30); GLOMERULAR FILTRATION RATE 48.4 (>42); POTASSIUM SERUM 3.7 MEQ/L (3.5-5.1); TOTAL PROTEIN 6.6 GM/DL (6.4-8.2)
[2019-04-17 06:30] VITALS: O2SAT 95
[2019-04-17] MEDS: IPRATROPIUM 0.5MG/ALBUTEROL 2.5MG INH SOL UD 3ML (DUONEB)(J7620) NEB SCH ×3 (07:42→19:47)
[2019-04-17] MEDS: ADVAIR HFA 230/21MCG INHALER INH SCH ×2 (07:44→19:47)
[2019-04-17] MEDS: AZITHROMYCIN 250 MG TAB PO SCH (08:41)
[2019-04-17] MEDS: HumaLOG INSULIN (NovoLOG) PER UNIT SC SCH ×3 (08:41→17:54)
[2019-04-17] MEDS: predniSONE 20 MG TAB PO SCH (08:42)
[2019-04-17] MEDS: DOCUSATE SODIUM 100 MG CAP PO SCH ×2 (08:42→19:57)
[2019-04-17] MEDS: ASPIRIN 81 MG CHEW TABLET PO SCH (08:42)
[2019-04-17] MEDS: APIXABAN 2.5 MG TAB (ELIQUIS) PO SCH ×2 (08:42→19:57)
[2019-04-17] MEDS: OMEPRAZOLE 20 MG CAP PO SCH (08:42)
[2019-04-17] MEDS: SERTRALINE HCL 50 MG TAB PO SCH (08:42)
[2019-04-17] MEDS: MIRALAX *UNIT DOSE* 17GM PACKET PO SCH (08:43)
[2019-04-17] MEDS: BISOPROLOL FUMARATE 5 MG TAB PO SCH (08:43)
[2019-04-17] MEDS: TORSEMIDE 10 MG TABLET PO SCH (08:45)
[2019-04-17] MEDS: ALPRAZolam 0.5 MG TAB PO PRN ×2 (09:14→19:58)
[2019-04-17] MEDS: traMADol 50 MG TAB PO PRN ×2 (10:04→19:58)
--- NOTE | 2019-04-17 11:45 | IPN ---
DATE: 04/16/2019 SUBJECTIVE: The patient was seen and examined at the bedside today morning. The patient reports that his shortness of breath is significantly better. He also slept better last night. He still has a good urine output with torsemide at 40 mg daily. There is a slight bump in the creatinine from 1.4 to 1.6 today. His cough is also improving. He continues to have an indwelling Chaidez catheter. OBJECTIVE: Vital Signs: Temperature is 97.6 degrees Fahrenheit, blood pressure 127/67, pulse is 73, respiratory rate of 20, saturating 97% on nasal cannula at 4 liters. Intake and output: Urine output recorded as 2 liters yesterday, 975 mL so far today since overnight. Weight on the bed scale is 72 kg. PHYSICAL EXAMINATION: General: The patient is awake, alert, oriented times three, laying in bed. No apparent distress, wearing nasal cannula. Head and neck exam: Extraocular muscles intact. Pupils equally round and reactive to light. Mucous membranes are moist. Neck is supple. There is no jugular venous distention (JVD). Cardiovascular: S1, S2, regular rate. No edema of the bilateral lower extremities. Respiratory: Mild expiratory rhonchi bilaterally at the bases, otherwise bilateral equal air entry. Abdomen: Soft, obese, positive bowel sounds. Nontender. No organomegaly. Genitourinary: He has an indwelling Chaidez catheter. Musculoskeletal: Clubbing of the fingernails, otherwise no cyanosis. Central Nervous System (C++ QUANT DEVELOPER): No focal deficit. Power is 5/5 in all extremities. LABORATORY REVIEW: CBC showed a WBC of 15.4, hemoglobin 11, platelets of 403. BMP showed sodium 136, potassium 3.8, chloride 97, bicarbonate 32, BUN 81, creatinine is 1.6, glucose 177, calcium is 8.6. CURRENT INPATIENT MEDICATIONS: The patient's medications were all reviewed by me. He continues to be on IV Primaxin. He is on IV vancomycin as well. He is on azithromycin 500 mg by mouth daily. I have decreased his torsemide to 30 mg by mouth daily. No other change in the medications today as compared with yesterday. ASSESSMENT/PLAN: 1. Acute renal failure superimposed on chronic kidney disease. The patient's creatinine was 1.4 yesterday. There is a bump in creatinine to 1.6. I have decreased the diuretic dose to 30 mg daily. Continue the Chaidez catheter at this point. 2. Acute on chronic diastolic congestive heart failure. The patient's volume status is better. There is an increase in the BUN level with torsemide 40 mg daily. He is in negative fluid balance. Torsemide dose has been decreased to 30 mg by mouth daily. 3. Healthcare-associated pneumonia. The patient is currently on vancomycin, Primaxin and azithromycin, and he is on oral vancomycin prophylaxis for a history of Clostridium difficile (C diff) in the past. 4. Acute chronic obstructive pulmonary disease (COPD) exacerbation. Continue prednisone and nebulizations as per primary team. Infection management is as mentioned above. 5. Iron-deficiency anemia. The patient is going to get last dose of IV Venofer. Hemoglobin level has improved to 11 today. The patient's renal function is stable. His volume status is optimized. Electrolytes are within the acceptable range. Nephrology service is going to sign off at this moment. Please call nephrology service for any help in the management of this patient during this hospitalization.
[2019-04-17] MEDS: FINASTERIDE 5 MG TAB PO SCH (12:18)
[2019-04-17 14:00] VITALS: BP 131/63
[2019-04-17 18:00] VITALS: O2SAT 95
[2019-04-17] MEDS: LEVEMIR (INSULIN DETEMIR) 1 UNITS/0.01ML SC SCH (19:56)
[2019-04-17] MEDS: traZODone 50 MG TAB PO SCH (19:57)
[2019-04-17] MEDS: SENNA 8.6 MG TAB (SENOKOT) PO SCH (19:57)
[2019-04-17 22:00] VITALS: BP 105/50
--- NOTE | 2019-04-17 23:20 | IPNPDOC ---
Subjective Date Seen The patient was seen on 04/17/19. Subjective Chief Complaint/HPI Mr. Cruz reports that he is feeling much better today. He is coughing up more phlegm, but he is feeling pretty good. He wonders when he can go back over to his home. Nursing reports that he had a harder morning and was pretty grumpy with them. Once he got his Xanax he did better, so they thing it was probably more anxiety than anything. General: Reports: Normal Appetite Constitutional: Denies: Chills, Fever Pulmonary: Reports: Dyspnea, Cough Cardiovascular: Denies: Chest Pain, Palpitations Objective Physical Examination General Exam: Positive: Alert, Cooperative (sitting at the side of his bed looking out of his window when I entered the room), No Acute Distress Eye Exam: Positive: Conjunctiva & lids normal; Negative: Sclera icteric ENT Exam: Positive: Mucous membr. moist/pink Neck Exam: Negative: Lymphadenopathy Chest Exam: Positive: Wheezing, Diminished Heart Exam: Positive: Rate Normal, Irregular Rhythm Telemetry: Positive: Atrial fibrillation Abdomen Exam: Positive: Normal bowel sounds, Soft; Negative: Tenderness Extremity Exam: Negative: Edema Neuro Exam: Positive: Normal Speech Psych Exam: Positive: Mood NL Assessment /Plan Problems (1) Acute respiratory failure with hypoxia Status: Acute Response to Treatment: Improving Problem Specific Plan: Monitor Clinically Problem Text: The nurses have been able to titrate treat him back to around 3 L. His goal SaO2 88-92% and often he is still running on the upper end of 90s. I think he will be at his baseline oxygen requirement soon. (2) TONE (acute kidney injury) Status: Acute Problem Text: He continues to diurese, although less each day. His renal function improved again today. Nephrology is assisting in management of his renal function. Will continue current regimen for now and monitor. (3) Acute on chronic diastolic CHF (congestive heart failure) Permanent Comment: Echo 04/13/19 1. Study is of fair technical quality. 2. Normal left ventricle (LV) size with mild LVH and overall preserved LV systolic function. Septal wall motion abnormality possibly related to coronary artery bypass surgery. 3. Aortic sclerosis resulting in mild insufficiency and trivial stenosis. 4. Moderate mitral and tricuspid insufficiency. 5. High central venous pressure and at least moderately severe pulmonary hypertension. Last Edited By: Claudia Snyder NP on April 13, 2019 7:35 am Status: Acute Problem Text: He continues to diurese, although the rate of changes slowing. He may be nearing his dry weight now. His pressures and creatinine are tolerating the diuresis just fine at this point. Continue current regimen, monitor. (4) HAP (hospital-acquired pneumonia) Problem Text: Based on his continued improvement, I believe Primaxin is the right medication for him. I believe that this antibiotic is helping him and we should continue with this regimen. The question is will he need to remain in the hospital for his entire course of therapy, or can he be discharged back to [facility] to finish out part of his treatment. (5) COPD (chronic obstructive pulmonary disease) Status: Chronic Problem Text: His wheezing is improving, although still present. I reduced his dose of prednisone to 30 mg starting tomorrow. Continue duonebs, Acapella and albuterol. (6) Depression Status: Chronic Problem Text: He is currently on trazodone 150 and alprazolam to 0.5mg q8 hours prn. He seems to be doing ok with this combination, however he was having more anxiety symptoms when he was not offered his Xanax. I encouraged the nurses to look at whether or not he's received his benzodiazepine if he starts to act crotchety with them; I think that change could improve life for both the patient and the nursing staff. Continue current SSRI. (7) Paroxysmal atrial fibrillation Status: Chronic Problem Text: Rate is in the 90s and I feel that this is reasonably controlled. I suspect that some of this is physiologic as he is dealing with several other hypoxic inducing conditions. Will monitor for now. (8) Anemia Status: Chronic Problem Text: Hb is relatively stable. Again down just a little, but probably physiologic fluctuation. Will continue to monitor for now. (9) DM2 (diabetes mellitus, type 2) Status: Chronic Problem Text: The first couple values of today are lower than they were the last several days. Will continue on 53 units of Levemir for now. Will monitor for hypoglycemia; though none is charted he is reported to have had some earlier in this admission. (10) Urinary retention due to benign prostatic hyperplasia Status: Acute Problem Text: Chaidez in place since 04/09. His tamsulosin was held 2/2 hypotension. He remains on finasteride. May consider resuming his tamsulosin if his BP remains good. (11) Dyspepsia Status: Chronic Response to Treatment: Stable Problem Text: His symptoms seem to be stable on sucralfate added to HD omepraz ole 40mg. (12) History of Clostridium difficile colitis Status: Chronic Response to Treatment: Stable Problem Text: On PO Vanco for prophylaxis. Continue this while he is receiving abx for his pneumonia. (13) DNR (do not resuscitate) Status: Chronic Problem Text: 04/10/19 reaffirms DNR/DNI (14) Constipation Status: Resolved Problem Text: Continue Miralax, Senna S and dulcolax suppository as needed. (15) Hypotension Status: Resolved Plan/VTE VTE Prophylaxis Ordered?: Yes (Eliquis) Plan Advance Directives: DNR VS, I&O, 24H, Fishbone Vital Signs/I&O Vital Signs Date Time Temp Pulse Resp B/P (MAP) Pulse Ox O2 Delivery O2 Flow Rate FiO2 04/17/19 20:28 72 15 99 2.0 04/17/19 18:00 Nasal Cannula 04/17/19 14:00 97.4 131/63 (85) I&O- Last 24 Hours up to 6 AM 04/17/19 06:00 Intake Total 1200 ml Output Total 2450 ml Balance -1250 ml Laboratory Data 24H LABS Laboratory Tests 2 04/17/19 05:26: Immature Granulocyte % (Auto) 5.0H, White Blood Count 16.4H, Red Blood Count 4.17L, Hemoglobin 10.9L, Hematocrit 34.5L, Mean Corpuscular Volume 82.7, Mean Corpuscular Hemoglobin 26.1L, Mean Corpuscular Hemoglobin Concent 31.6L, Red Cell Distribution Width 18.9H, Platelet Count 416, Neutrophils (%) (Auto) 79.6H, Lymphocytes (%) (Auto) 9.5L, Monocytes (%) (Auto) 4.6, Eosinophils (%) (Auto) 1.1, Basophils (%) (Auto) 0.2, Neutrophils # (Auto) 13.0H, Lymphocytes # (Auto) 1.6, Monocytes # (Auto) 0.8, Eosinophils # (Auto) 0.2, Basophils # (Auto) 0.0, Nucleated Red Blood Cells % (auto) 0.0, Anion Gap 7L, Glomerular Filtration Rate 48.4, Blood Urea Nitrogen 71H, Creatinine 1.50H, Sodium Level 135L, Potassium Level 3.7, Chloride Level 96L, Carbon Dioxide Level 32, Calcium Level 8.4L, Aspartate Amino Transf (AST/SGOT) 14, Alanine Aminotransferase (ALT/SGPT) 19, Alkaline Phosphatase 66, Total Bilirubin 0.5, Total Protein 6.6, Albumin 2.1L, Albumin/Globulin Ratio 0.47L 04/17/19 11:33: Bedside Glucose (Misc Panel) 143H 04/17/19 16:39: Bedside Glucose (Misc Panel) 155H 04/17/19 19:51: Bedside Glucose (Misc Panel) 301H CBC/BMP Laboratory Tests 04/17/19 05:26 Red Blood Count 4.17 L, Mean Corpuscular Volume 82.7, Mean Corpuscular Hemoglobin 26.1 L, Mean Corpuscular Hemoglobin Concent 31.6 L, Red Cell Distribution Width 18.9 H, Neutrophils (%) (Auto) 79.6 H, Lymphocytes (%) (Auto) 9.5 L, Monocytes (%) (Auto) 4.6, Eosinophils (%) (Auto) 1.1, Basophils (%) (Auto) 0.2, Neutrophils # (Auto) 13.0 H, Lymphocytes # (Auto) 1.6, Monocytes # (Auto) 0.8, Eosinophils # (Auto) 0.2, Basophils # (Auto) 0.0, Calcium Level 8.4 L, Aspartate Amino Transf (AST/SGOT) 14, Alanine Aminotransferase (ALT/SGPT) 19, Alkaline Phosphatase 66, Total Bilirubin 0.5, Total Protein 6.6, Albumin 2.1 L Microbiology Microbiology 04/09/19 Blood Culture - Final, Complete NO GROWTH AFTER 5 DAYS 04/09/19 Blood Culture - Final, Complete NO GROWTH AFTER 5 DAYS 04/14/19 MRSA Screen - Final, Complete 04/14/19 Gram Stain - Final, Complete 04/14/19 Sputum Culture - Final, Complete 04/11/19 Respiratory Virus Panel (PCR) ([facility]) - Final, Complete 04/09/19 Urine Culture - Final, Complete Mervin Hodge MD Apr 17, 2019 11:19 pm
[2019-04-18 01:05] VITALS: O2SAT 95
[2019-04-18] MEDS: ALPRAZolam 0.5 MG TAB PO PRN ×3 (04:11→20:31)
[2019-04-18] MEDS: traMADol 50 MG TAB PO PRN ×2 (04:12→20:31)
[2019-04-18] MEDS: IPRATROPIUM 0.5MG/ALBUTEROL 2.5MG INH SOL UD 3ML (DUONEB)(J7620) NEB PRN (04:23)
[2019-04-18] MEDS: IMIPENEM/CILASTATIN 250 MG in D5W MINI-BAG PLUS 100 ML IV SCH ×4 (05:35→23:20)
[2019-04-18] MEDS: VANCOMYCIN ORAL SOL 250MG/5ML ORAL SYRINGE PO SCH ×4 (05:35→23:22)
[2019-04-18 06:00] VITALS: BP 106/59
[2019-04-18 06:24] LABS: BASO % 0.2 % (0.0-1.0); EOS # 0.1 10^3/uL (0.0-0.50); EOS % 0.9 % (0.0-3.0); HEMATOCRIT 32.5 % (42.0-52.0); HEMOGLOBIN 10.2 g/dl (13.5-17.5); LYMPH # 1.5 10^3/uL (1.5-4.5); LYMPH % 10.5 % (24.0-44.0); MEAN CORPUSCULAR HGB CONC 31.4 g/dl (32.0-36.5); MEAN CORPUSCULAR VOLUME 82.7 fl (80.0-96.0); MONO # 0.7 10^3/uL (0.0-0.8); MONO % 5.1 % (0.0-5.0); NEUTROPHILS % 78.9 % (36.0-66.0); PLATELET COUNT, AUTOMATED 369 10^3/uL (150-450); RED BLOOD COUNT 3.93 10^6/uL (4.30-6.10)
[2019-04-18 06:56] LABS: BILIRUBIN,TOTAL 0.5 MG/DL (0.2-1.0); CALCIUM LEVEL 8.1 MG/DL (8.8-10.2); CREATININE FOR GFR 1.39 MG/DL (0.70-1.30); GLOMERULAR FILTRATION RATE 52.9 (>42); POTASSIUM SERUM 3.5 MEQ/L (3.5-5.1)
[2019-04-18] MEDS: IPRATROPIUM 0.5MG/ALBUTEROL 2.5MG INH SOL UD 3ML (DUONEB)(J7620) NEB SCH ×4 (07:18→19:35)
[2019-04-18] MEDS: HumaLOG INSULIN (NovoLOG) PER UNIT SC SCH ×3 (07:30→17:14)
[2019-04-18] MEDS: OMEPRAZOLE 20 MG CAP PO SCH (08:09)
[2019-04-18] MEDS: ASPIRIN 81 MG CHEW TABLET PO SCH (08:09)
[2019-04-18] MEDS: predniSONE 10 MG TAB PO SCH (08:10)
[2019-04-18] MEDS: SERTRALINE HCL 50 MG TAB PO SCH (08:10)
[2019-04-18] MEDS: BISOPROLOL FUMARATE 5 MG TAB PO SCH (08:10)
[2019-04-18] MEDS: APIXABAN 2.5 MG TAB (ELIQUIS) PO SCH ×2 (08:10→20:31)
[2019-04-18] MEDS: TORSEMIDE 10 MG TABLET PO SCH (08:10)
[2019-04-18] MEDS: DOCUSATE SODIUM 100 MG CAP PO SCH ×2 (08:10→20:31)
[2019-04-18] MEDS: MIRALAX *UNIT DOSE* 17GM PACKET PO SCH (09:00)
[2019-04-18] MEDS: ADVAIR HFA 230/21MCG INHALER INH SCH ×2 (09:00→19:36)
[2019-04-18] MEDS: FINASTERIDE 5 MG TAB PO SCH (12:09)
[2019-04-18 14:30] VITALS: BP 111/64
[2019-04-18 14:36] VITALS: O2SAT 97
[2019-04-18] MEDS: traZODone 50 MG TAB PO SCH (20:30)
[2019-04-18] MEDS: SENNA 8.6 MG TAB (SENOKOT) PO SCH (20:30)
[2019-04-18] MEDS: LEVEMIR (INSULIN DETEMIR) 1 UNITS/0.01ML SC SCH (20:30)
--- NOTE | 2019-04-18 20:40 | IPNPDOC ---
Subjective Date Seen The patient was seen on 04/18/19. Subjective Chief Complaint/HPI Patient lying comfortable in bed as I entered the room. He reports to be feel much better. Still with cough. He states he is ready to return to [facility] Constitutional: Denies: Chills, Fever Pulmonary: Reports: Dyspnea, Cough; Denies: Pleuritic Chest Pain Cardiovascular: Denies: Chest Pain, Palpitations, Orthopnea, Edema Gastrointestinal: Denies: Nausea, Vomiting, Abdominal Pain Psych: Reports: Mood Normal Objective Physical Examination General Exam: Positive: Alert, Cooperative, No Acute Distress Eye Exam: Positive: Conjunctiva & lids normal; Negative: Sclera icteric ENT Exam: Positive: Mucous membr. moist/pink Neck Exam: Negative: JVD, Lymphadenopathy Chest Exam: Positive: Wheezing, Diminished Heart Exam: Positive: Rate Normal, Irregular Rhythm Telemetry: Positive: Atrial fibrillation Abdomen Exam: Positive: Normal bowel sounds, Soft; Negative: Tenderness Extremity Exam: Negative: Edema Neuro Exam: Positive: Normal Speech Psych Exam: Positive: Mood NL Assessment /Plan Problems (1) Acute respiratory failure with hypoxia Status: Acute Response to Treatment: Improving Problem Specific Plan: Monitor Clinically Problem Text: Patient remains on 2L via nasal cannula, O2 sat 96%. Goal is 88- 92%. We will continue to wean down. (2) Acute on chronic diastolic CHF (congestive heart failure) Permanent Comment: Echo 04/13/19 1. Study is of fair technical quality. 2. Normal left ventricle (LV) size with mild LVH and overall preserved LV systolic function. Septal wall motion abnormality possibly related to coronary artery bypass surgery. 3. Aortic sclerosis resulting in mild insufficiency and trivial stenosis. 4. Moderate mitral and tricuspid insufficiency. 5. High central venous pressure and at least moderately severe pulmonary hypertension. Last Edited By: Claudia Snyder NP on April 13, 2019 7:35 am Status: Acute Problem Text: Patient appears to be well compensated today. He is on Torsemide 30mg po qday. His weight is up slightly 71.5kg (3) TONE (acute kidney injury) Status: Acute Response to Treatment: Improving Problem Text: Cre 1.39, GFR 52. Baseline creatinine is about 1.2. Nephrology is assisting in management of his renal function. Will continue current regimen for now and monitor. (4) HAP (hospital-acquired pneumonia) Problem Text: WBC 14.0. Currently on Primaxin 03/22. Patent appears to be doing much better. He will probably need to finish his treatment here. (5) COPD (chronic obstructive pulmonary disease) Status: Chronic Problem Text: His wheezing is improving, although still present. Currently on day 1 of prednisone to 30 mg. Continue duonebs, Acapella and albuterol. (6) Depression Status: Chronic Problem Text: He is currently on trazodone 150 and alprazolam to 0.5mg q8 hours prn. He seems to be doing ok with this combination, however he was having more anxiety symptoms when he was not offered his Xanax. I encouraged the nurses to look at whether or not he's received his benzodiazepine if he starts to act crotchety with them; I think that change could improve life for both the patient and the nursing staff. Continue current SSRI. (7) DM2 (diabetes mellitus, type 2) Status: Chronic Problem Text: Nursing expressed concern over fingerstick of 53 this morning. We will reduce Levemir to 50 units. We will continue to monitor and adjust accordingly. (8) Paroxysmal atrial fibrillation Status: Chronic Problem Text: Rate is well-controlled. Continue current regimen, monitor. (9) Anemia Status: Chronic Problem Text: Hgb 10.2. Hb is relatively stable. Will continue to monitor for now. (10) Urinary retention due to benign prostatic hyperplasia Status: Acute Problem Text: Chaidez in place since 04/09. His tamsulosin was held 2/2 hypotension. He remains on finasteride. May consider resuming his tamsulosin if his BP remains good. (11) Dyspepsia Status: Chronic Response to Treatment: Stable Problem Text: His symptoms seem to be stable on sucralfate added to HD omeprazole 40mg. (12) History of Clostridium difficile colitis Status: Chronic Response to Treatment: Stable Problem Text: On PO Vanco for prophylaxis. Continue this while he is receiving abx for his pneumonia. (13) DNR (do not resuscitate) Status: Chronic Problem Text: 04/10/19 reaffirms DNR/DNI (14) Constipation Status: Resolved Problem Text: Continue Miralax, Senna S and dulcolax suppository as needed. (15) Hypotension Status: Resolved Plan/VTE VTE Prophylaxis Ordered?: Yes (Eliquis) Plan Advance Directives: DNR Family Medicine Attending Note: I saw and examined Mr. Cruz, discussed with Cristin Dawn DNP. Agree with her note as documented. He continues to do well. He will probably stay with us through the end of his Primaxin. The other thing we need to work on would be his Chaidez catheter, which has not been chronic prior to this admission. His blood pressure remained on the low side. We'll see how it do es tomorrow. If remains low we may need to back off on one of his antihypertensives in order to be able to reintroduced the tamsulosin. (cementer oil well) VS, I&O, 24H, Fishbone Vital Signs/I&O Vital Signs Date Time Temp Pulse Resp B/P (MAP) Pulse Ox O2 Delivery O2 Flow Rate FiO2 04/18/19 08:10 68 106/59 04/18/19 08:00 2.0 04/18/19 06:00 97.9 20 96 04/18/19 01:05 Nasal Cannula I&O- Last 24 Hours up to 6 AM0 04/18/19 06:00 Intake Total 2180 ml Output Total 1900 ml Balance 280 ml Laboratory Data 24H LABS Laboratory Tests 2 04/17/19 11:33: Bedside Glucose (Misc Panel) 143H 04/17/19 16:39: Bedside Glucose (Misc Panel) 155H 04/17/19 19:51: Bedside Glucose (Misc Panel) 301H 04/18/19 05:40: Immature Granulocyte % (Auto) 4.4H, White Blood Count 14.0H, Red Blood Count 3.93L, Hemoglobin 10.2L, Hematocrit 32.5L, Mean Corpuscular Volume 82.7, Mean Corpuscular Hemoglobin 26.0L, Mean Corpuscular Hemoglobin Concent 31.4L, Red Cell Distribution Width 18.9H, Platelet Count 369, Neutrophils (%) (Auto) 78.9H, Lymphocytes (%) (Auto) 10.5L, Monocytes (%) (Auto) 5.1H, Eosinophils (%) (Auto) 0.9, Basophils (%) (Auto) 0.2, Neutrophils # (Auto) 11.0H, Lymphocytes # (Auto) 1.5, Monocytes # (Auto) 0.7, Eosinophils # (Auto) 0.1, Basophils # (Auto) 0.0, Nucleated Red Blood Cells % (auto) 0.0, Anion Gap 7L, Glomerular Filtration Rate 52.9, Blood Urea Nitrogen 71H, Creatinine 1.39H, Sodium Level 135L, Potassium Level 3.5, Chloride Level 96L, Carbon Dioxide Level 32, Calcium Level 8.1L, Aspartate Amino Transf (AST/SGOT) 14, Alanine Aminotransferase (ALT/SGPT) 16, Alkaline Phosphatase 61, Total Bilirubin 0.5, Total Protein 6.0L, Albumin 2.0L, Albumin/Globulin Ratio 0.50L 04/18/19 07:30: Bedside Glucose (Misc Panel) 60L CBC/BMP Laboratory Tests 04/18/19 05:40 Red Blood Count 3.93 L, Mean Corpuscular Volume 82.7, Mean Corpuscular Hemoglobin 26.0 L, Mean Corpuscular Hemoglobin Concent 31.4 L, Red Cell Distribution Width 18.9 H, Neutrophils (%) (Auto) 78.9 H, Lymphocytes (%) (Auto) 10.5 L, Monocytes (%) (Auto) 5.1 H, Eosinophils (%) (Auto) 0.9, Basophils (%) (Auto) 0.2, Neutrophils # (Auto) 11.0 H, Lymphocytes # (Auto) 1.5, Monocytes # (Auto) 0.7, Eosinophils # (Auto) 0.1, Basophils # (Auto) 0.0, Calcium Level 8.1 L, Aspartate Amino Transf (AST/SGOT) 14, Alanine Aminotransferase (ALT/SGPT) 16, Alkaline Phosphatase 61, Total Bilirubin 0.5, Total Protein 6.0 L, Albumin 2.0 L Microbiology Microbiology 04/09/19 Blood Culture - Final, Complete NO GROWTH AFTER 5 DAYS 04/09/19 Blood Culture - Final, Complete NO GROWTH AFTER 5 DAYS 04/14/19 MRSA Screen - Final, Complete 04/14/19 Gram Stain - Final, Complete 04/14/19 Sputum Culture - Final, Complete 04/11/19 Respiratory Virus Panel (PCR) ([facility]) - Final, Complete 04/09/19 Urine Culture - Final, Complete CRISTIN DAWN Apr 18, 2019 10:33 am Mervin Hodge MD Apr 18, 2019 8:40 pm
[2019-04-18 22:00] VITALS: BP 138/65
[2019-04-19] MEDS: IPRATROPIUM 0.5MG/ALBUTEROL 2.5MG INH SOL UD 3ML (DUONEB)(J7620) NEB PRN ×2 (00:31→23:36)
[2019-04-19] MEDS: ALPRAZolam 0.5 MG TAB PO PRN ×3 (04:22→20:15)
[2019-04-19] MEDS: traMADol 50 MG TAB PO PRN ×2 (04:23→20:15)
[2019-04-19] MEDS: VANCOMYCIN ORAL SOL 250MG/5ML ORAL SYRINGE PO SCH ×4 (05:24→23:54)
[2019-04-19] MEDS: IMIPENEM/CILASTATIN 250 MG in D5W MINI-BAG PLUS 100 ML IV SCH ×4 (05:24→23:54)
[2019-04-19 06:00] VITALS: BP 112/47
[2019-04-19 06:25] LABS: BASO # 0.1 10^3/uL (0.0-0.2); BASO % 0.4 % (0.0-1.0); EOS # 0.1 10^3/uL (0.0-0.50); EOS % 0.8 % (0.0-3.0); HEMATOCRIT 32.4 % (42.0-52.0); HEMOGLOBIN 10.4 g/dl (13.5-17.5); LYMPH # 1.3 10^3/uL (1.5-4.5); MEAN CORPUSCULAR HEMOGLOBIN 27.4 pg (27.0-33.0); MEAN CORPUSCULAR HGB CONC 32.1 g/dl (32.0-36.5); MEAN CORPUSCULAR VOLUME 85.3 fl (80.0-96.0); MONO # 0.8 10^3/uL (0.0-0.8); MONO % 4.9 % (0.0-5.0); NEUTROPHILS # 13.4 10^3/uL (1.8-7.7); NEUTROPHILS % 83.2 % (36.0-66.0); PLATELET COUNT, AUTOMATED 350 10^3/uL (150-450); WHITE BLOOD COUNT 16.1 10^3/uL (4.0-10.0)
[2019-04-19 06:47] LABS: ALBUMIN 2.2 GM/DL (3.2-5.2); BILIRUBIN,TOTAL 0.4 MG/DL (0.2-1.0); CALCIUM LEVEL 8.3 MG/DL (8.8-10.2); CREATININE FOR GFR 1.28 MG/DL (0.70-1.30); GLOMERULAR FILTRATION RATE 58.2 (>42); POTASSIUM SERUM 3.8 MEQ/L (3.5-5.1)
[2019-04-19] MEDS: IPRATROPIUM 0.5MG/ALBUTEROL 2.5MG INH SOL UD 3ML (DUONEB)(J7620) NEB SCH ×4 (08:00→20:00)
--- NOTE | 2019-04-19 08:06 | IPNPDOC ---
Subjective Date Seen The patient was seen on 04/19/19. Subjective Chief Complaint/HPI Patient sitting at bedside eating breakfast as I entered the room. He reports to be feeling well. Offers no new concerns today Constitutional: Denies: Chills, Fever Pulmonary: Reports: Cough; Denies: Dyspnea, Pleuritic Chest Pain Cardiovascular: Denies: Chest Pain, Palpitations, Orthopnea, Edema Gastrointestinal: Denies: Nausea, Vomiting, Abdominal Pain Genitourinary: Reports: Other Symptoms (Chaidez ) Psych: Reports: Mood Normal Objective Physical Examination General Exam: Positive: Alert, Cooperative, No Acute Distress Eye Exam: Positive: Conjunctiva & lids normal; Negative: Sclera icteric ENT Exam: Positive: Mucous membr. moist/pink Neck Exam: Negative: JVD, Lymphadenopathy Chest Exam: Positive: Wheezing, Diminished Heart Exam: Positive: Rate Normal, Irregular Rhythm Telemetry: Positive: Atrial fibrillation Abdomen Exam: Positive: Normal bowel sounds, Soft; Negative: Tenderness Extremity Exam: Negative: Edema Neuro Exam: Positive: Normal Speech Psych Exam: Positive: Mood NL Assessment /Plan Problems (1) Acute respiratory failure with hypoxia Status: Acute Response to Treatment: Improving Problem Specific Plan: Monitor Clinically Problem Text: 04/19/19: Remains on 2L n/c, O2 Sat 92-96%. Nursing will continue to wean down to maintain goal of 88-92% Patient remains on 2L via nasal cannula, O2 sat 96%. Goal is 88-92%. We will continue to wean down. (2) Acute on chronic diastolic CHF (congestive heart failure) Permanent Comment: Echo 04/13/19 1. Study is of fair technical quality. 2. Normal left ventricle (LV) size with mild LVH and overall preserved LV systolic function. Septal wall motion abnormality possibly related to coronary artery bypass surgery. 3. Aortic sclerosis resulting in mild insufficiency and trivial stenosis. 4. Moderate mitral and tricuspid insufficiency. 5. High central venous pressure and at least moderately severe pulmonary hypertension. Last Edited By: Claudia Snyder NP on April 13, 2019 07:35 Status: Acute Problem Text: 04/19/19: Patient appears well compensated today. He needs reinforcement regarding his fluid restriction, -640 based on I&Os. Weight up to 74kg. Patient appears to be well compensated today. He is on Torsemide 30mg po qday. His weight is up slightly 71.5kg (3) TONE (acute kidney injury) Status: Acute Response to Treatment: Improving Problem Text: 04/19/19: BUN/Cre 61/1.28, GFR 58 Cre 1.39, GFR 52. Baseline creatinine is about 1.2. Nephrology is assisting in management of his renal function. Will continue current regimen for now and monitor. (4) HAP (hospital-acquired pneumonia) Problem Text: 04/19/19: WBC 16, he is on Prednisone 30 mg q day. He appears to be much better. He will remain in hospital for duration of his abx regimen WBC 14.0. Currently on Primaxin /. Patent appears to be doing much better. He will probably need to finish his treatment here. (5) COPD (chronic obstructive pulmonary disease) Status: Chronic Problem Text: 04/19/19: Symptoms improvement. He is on Prednisone 30 mg po q day, nebs and Acapella His wheezing is improving, although still present. Currently on day 1 of prednisone to 30 mg. Continue duonebs, Acapella and albuterol. (6) Depression Status: Chronic Problem Text: He is currently on trazodone 150 and alprazolam to 0.5mg q8 hours prn. He seems to be doing ok with this combination, however he was having more anxiety symptoms when he was not offered his Xanax. I encouraged the nurses to look at whether or not he's received his benzodiazepine if he starts to act crotchety with them; I think that change could improve life for both the patient and the nursing staff. Continue current SSRI. (7) DM2 (diabetes mellitus, type 2) Status: Chronic Problem Text: 04/19/19: He received a total of 8 units of coverage yesterday. His Levemir was reduced to 50 units d/t hypoglycemia. We may need to titrate back up. We will monitor. Sugars likely to run higher related to prednisone. Patient is also consuming Pepsi about twice daily. He has been counseled on fluid restriction and consuming sugary drinks Nursing expressed concern over fingerstick of 53 this morning. We will reduce Levemir to 50 units. We will continue to monitor and adjust accordingly. (8) Paroxysmal atrial fibrillation Status: Chronic Problem Text: Rate is well-controlled. Continue current regimen, monitor. (9) Anemia Status: Chronic Response to Treatment: Stable Problem Text: Hgb 10.2. Hb is relatively stable. Will continue to monitor for now. (10) Urinary retention due to benign prostatic hyperplasia Status: Acute Problem Text: 04/19/19: Chaidez remains in place. His Tamsulosin was held d/t hypotension. His pressures appear to be improving today. I will discuss with attending regarding trial voiding and resuming his Tamsulosin Chaidez in place since 04/09. His tamsulosin was held 2/2 hypotension. He remains on finasteride. May consider resuming his tamsulosin if his BP remains good. (11) Dyspepsia Status: Chronic Response to Treatment: Stable Problem Text: His symptoms seem to be stable on sucralfate added to HD omeprazole 40mg. (12) History of Clostridium difficile colitis Status: Chronic Response to Treatment: Stable Problem Text: On PO Vanco for prophylaxis. Continue this while he is receiving abx for his pneumonia. (13) DNR (do not resuscitate) Status: Chronic Problem Text: 04/10/19 reaffirms DNR/DNI (14) Constipation Status: Resolved Problem Text: Continue Miralax, Senna S and dulcolax suppository as needed. (15) Hypotension Status: Resolved Plan/VTE VTE Prophylaxis Ordered?: Yes (Eliquis) Plan Advance Directives: DNR VS, I&O, 24H, [facility] Vital Signs/I&O Vital Signs Date Time Temp Pulse Resp B/P (MAP) Pulse Ox O2 Delivery O2 Flow Rate FiO2 04/19/19 06:00 96.0 72 18 112/47 (68) 96 2.0 04/18/19 14:36 Nasal Cannula I&O- Last 24 Hours up to 6 AM 04/19/19 06:00 Intake Total 1760 ml Output Total 2400 ml Balance -640 ml Laboratory Data 24H LABS Laboratory Tests 2 04/18/19 11:50: Bedside Glucose (Misc Panel) 94 04/18/19 16:55: Bedside Glucose (Misc Panel) 258H 04/18/19 19:41: Bedside Glucose (Misc Panel) 355H 04/19/19 06:06: Immature Granulocyte % (Auto) 2.7, White Blood Count 16.1H, Red Blood Count 3.80L, Hemoglobin 10.4L, Hematocrit 32.4L, Mean Corpuscular Volume 85.3, Mean Corpuscular Hemoglobin 27.4, Mean Corpuscular Hemoglobin Concent 32.1, Red Cell Distribution Width 18.8H, Platelet Count 350, Neutrophils (%) (Auto) 83.2H, Lymphocytes (%) (Auto) 8.0L, Monocytes (%) (Auto) 4.9, Eosinophils (%) (Auto) 0.8, Basophils (%) (Auto) 0.4, Neutrophils # (Auto) 13.4H, Lymphocytes # (Auto) 1.3L, Monocytes # (Auto) 0.8, Eosinophils # (Auto) 0.1, Basophils # (Auto) 0.1, Nucleated Red Blood Cells % (auto) 0.0, Anion Gap 8, Glomerular Filtration Rate 58.2, Blood Urea Nitrogen 61H, Creatinine 1.28, Sodium Level 133L, Potassium Level 3.8, Chloride Level 97L, Carbon Dioxide Level 28, Calcium Level 8.3L, Aspartate Amino Transf (AST/SGOT) 18, Alanine Aminotransferase (ALT/SGPT) 23, Alkaline Phosphatase 69, Total Bilirubin 0.4, Total Protein 6.0L, Albumin 2.2L, Albumin/Globulin Ratio 0.58L CBC/BMP Laboratory Tests 04/19/19 06:06 Red Blood Count 3.80 L, Mean Corpuscular Volume 85.3, Mean Corpuscular Hemoglobin 27.4, Mean Corpuscular Hemoglobin Concent 32.1, Red Cell Distribution Width 18.8 H, Neutrophils (%) (Auto) 83.2 H, Lymphocytes (%) (Auto) 8.0 L, Monocytes (%) (Auto) 4.9, Eosinophils (%) (Auto) 0.8, Basophils (%) (Auto) 0.4, Neutrophils # (Auto) 13.4 H, Lymphocytes # (Auto) 1.3 L, Monocytes # (Auto) 0.8, Eosinophils # (Auto) 0.1, Basophils # (Auto) 0.1, Calcium Level 8.3 L, Aspartate Amino Transf (AST/SGOT) 18, Alanine Aminotransferase (ALT/SGPT) 23, Alkaline Phosphatase 69, Total Bilirubin 0.4, Total Protein 6.0 L, Albumin 2.2 L Microbiology Microbiology 04/09/19 Blood Culture - Final, Complete NO GROWTH AFTER 5 DAYS 04/09/19 Blood Culture - Final, Complete NO GROWTH AFTER 5 DAYS 04/14/19 MRSA Screen - Final, Complete 04/14/19 Gram Stain - Final, Complete 04/14/19 Sputum Culture - Final, Complete 04/11/19 Respiratory Virus Panel (PCR) ([facility]) - Final, Complete 04/09/19 Urine Culture - Final, Complete CRISTIN DAWN [facility] Apr 19, 2019 08:06
[2019-04-19] MEDS: ADVAIR HFA 230/21MCG INHALER INH SCH ×2 (08:21→21:02)
[2019-04-19] MEDS: HumaLOG INSULIN (NovoLOG) PER UNIT SC SCH ×3 (08:36→17:07)
[2019-04-19] MEDS: TORSEMIDE 10 MG TABLET PO SCH (08:37)
[2019-04-19] MEDS: DOCUSATE SODIUM 100 MG CAP PO SCH ×2 (08:37→21:00)
[2019-04-19] MEDS: BISOPROLOL FUMARATE 5 MG TAB PO SCH (08:37)
[2019-04-19] MEDS: SERTRALINE HCL 50 MG TAB PO SCH (08:37)
[2019-04-19] MEDS: OMEPRAZOLE 20 MG CAP PO SCH (08:37)
[2019-04-19] MEDS: MIRALAX *UNIT DOSE* 17GM PACKET PO SCH (08:38)
[2019-04-19] MEDS: predniSONE 10 MG TAB PO SCH (08:38)
[2019-04-19] MEDS: ASPIRIN 81 MG CHEW TABLET PO SCH (08:38)
[2019-04-19] MEDS: APIXABAN 2.5 MG TAB (ELIQUIS) PO SCH ×2 (08:38→20:15)
[2019-04-19 10:35] VITALS: O2SAT 95
[2019-04-19] MEDS ORDERED: TAMSULOSIN 0.4 MG CAP PO SCH ×3 (11:45→21:00)
[2019-04-19] MEDS: FINASTERIDE 5 MG TAB PO SCH (12:08)
[2019-04-19] MEDS ORDERED: TAMSULOSIN 0.4 MG CAP PO ONE (12:15)
[2019-04-19 13:51] VITALS: BP 127/58
[2019-04-19] MEDS: traZODone 50 MG TAB PO SCH (20:15)
[2019-04-19] MEDS: LEVEMIR (INSULIN DETEMIR) 1 UNITS/0.01ML SC SCH (20:20)
[2019-04-19] MEDS: SENNA 8.6 MG TAB (SENOKOT) PO SCH (21:00)
[2019-04-19 22:00] VITALS: BP 128/60
[2019-04-20] MEDS: IMIPENEM/CILASTATIN 250 MG in D5W MINI-BAG PLUS 100 ML IV SCH ×2 (05:02→11:13)
[2019-04-20] MEDS: ALPRAZolam 0.5 MG TAB PO PRN (05:02)
[2019-04-20] MEDS: traMADol 50 MG TAB PO PRN (05:02)
[2019-04-20 06:00] VITALS: BP 124/59
[2019-04-20 06:01] LABS: BASO % 0.1 % (0.0-1.0); EOS % 0.2 % (0.0-3.0); HEMATOCRIT 33.1 % (42.0-52.0); HEMOGLOBIN 10.3 g/dl (13.5-17.5); MEAN CORPUSCULAR HEMOGLOBIN 26.1 pg (27.0-33.0); MEAN CORPUSCULAR HGB CONC 31.1 g/dl (32.0-36.5); MONO # 0.8 10^3/uL (0.0-0.8); NEUTROPHILS # 14.4 10^3/uL (1.8-7.7); NEUTROPHILS % 86.3 % (36.0-66.0); PLATELET COUNT, AUTOMATED 357 10^3/uL (150-450); RED BLOOD COUNT 3.94 10^6/uL (4.30-6.10); WHITE BLOOD COUNT 16.7 10^3/uL (4.0-10.0)
[2019-04-20] MEDS: VANCOMYCIN ORAL SOL 250MG/5ML ORAL SYRINGE PO SCH ×2 (06:05→11:13)
[2019-04-20] MEDS: IPRATROPIUM 0.5MG/ALBUTEROL 2.5MG INH SOL UD 3ML (DUONEB)(J7620) NEB SCH ×2 (07:15→10:11)
[2019-04-20] MEDS: ADVAIR HFA 230/21MCG INHALER INH SCH (07:15)
[2019-04-20] MEDS: HumaLOG INSULIN (NovoLOG) PER UNIT SC SCH ×2 (08:15→11:27)
[2019-04-20] MEDS: MIRALAX *UNIT DOSE* 17GM PACKET PO SCH (08:15)
[2019-04-20 08:16] VITALS: BP 124/59
[2019-04-20] MEDS: APIXABAN 2.5 MG TAB (ELIQUIS) PO SCH (08:16)
[2019-04-20] MEDS: BISOPROLOL FUMARATE 5 MG TAB PO SCH (08:16)
[2019-04-20] MEDS: ASPIRIN 81 MG CHEW TABLET PO SCH (08:16)
[2019-04-20] MEDS: TORSEMIDE 10 MG TABLET PO SCH (08:16)
[2019-04-20] MEDS: predniSONE 10 MG TAB PO SCH (08:16)
[2019-04-20] MEDS: DOCUSATE SODIUM 100 MG CAP PO SCH (08:17)
[2019-04-20] MEDS: SERTRALINE HCL 50 MG TAB PO SCH (08:17)
[2019-04-20] MEDS: OMEPRAZOLE 20 MG CAP PO SCH (08:17)
[2019-04-20] MEDS ORDERED: FIRV50SO PO (10:55)
[2019-04-20] MEDS ORDERED: PRED10TA2 PO (10:55)
[2019-04-20] MEDS: FINASTERIDE 5 MG TAB PO SCH (11:14)
--- NOTE | 2019-04-20 16:08 | DS.PDOC ---
Discharge Summary General Date of Admission April 09, 2019 at 17:21 Date of Discharge 04/20/19 Primary Care Physician: Pastor Bryan M.D. Attending Physician: Mervin Hodge MD Specialist/Consultants Involve: KEENAN DIAZ MD Discharge Summary PROCEDURES PERFORMED DURING STAY: ECHO 1. Study is of fair technical quality. 2. Normal left ventricle (LV) size with mild LVH and overall preserved LV systolic function. Septal wall motion abnormality possibly related to coronary artery bypass surgery. 3. Aortic sclerosis resulting in mild insufficiency and trivial stenosis. 4. Moderate mitral and tricuspid insufficiency. 5. High central venous pressure and at least moderately severe pulmonary hypertension. ADMITTING DIAGNOSES: 1. Hospital-acquired pneumonia 2. Acute renal failure 3. Hyponatremia 4. Hyperkalemia 5. COPD 6. Chronic diastolic congestive heart failure 7. Anemia and chronic kidney disease 8. Diabetes mellitus, type 2 9. Benign prostatic hypertrophy (BPH) and urinary retention: COMPLICATIONS/CHIEF COMPLAINT: Acute On Chronic Diastolic Chf Alejo. HISTORY OF PRESENT ILLNESS: This is a 74-year-old white male patient of Dr. Pastor Bryan arriving from [facility] due to roughly five day history of increased dyspnea at rest. He states over that same period of time, he has had decreased urinary output and inability to urinate requiring straining. He denies any fevers, chills, cough, congestion. No abdominal pain, nausea, vomiting, diarrhea. He has had no new medications. HOSPITAL COURSE: 1. Hospital-acquired pneumonia: Patient was initially treated with Levaquin. He was placed on DueNebs and O2 with titration to keep saturations 88-92. Abx changed to Primaxin plus vanco on 04/14/19 d/t elevated WBC and little improvement. Vanco was stopped on 04/16/19 after a negative MRSA screen. Patient remained on Nebulizers and his home inhalers. He was also placed on Vancomycin for C-diff prophylaxis d/t his high risk of recurrent c-diff. Respiratory panel was negative, BC negative and sputum cx negative. Patient demonstrated steady and gradual improvement on the Primaxin. He was treated for a total of 7 days. He was discharged on day 7 of his Primaxin regimen with his final dose to be administered at [facility]. 2. Acute renal failure: Nephrology was consulted. This was felt to be initally a result of dehydration and possible BPH. A small bolus of IVF NS was administered and a Chaidez inserted. Patient became volume overloaded and was treated with IV diuretics. 3. Hyponatremia. The patient had hypovolemic hyponatremia with a lower urine sodium and low fractional excretion of sodium (FENA). Sodium level improved with gentle hydration. 4. Hyperkalemia: This was secondary to acute renal failure. This was managed by nephrology and treated with hydration initially then with diuresis. 5. COPD: He was started on IV solumedrol with tapered therapy throughout his hospital stay. The patient was maintained on his home inhalers. He was given a tapering dose upon discharge. 6. Chronic diastolic congestive heart failure: Patient was initially treated with gentle diuresis for a net negative of 1 liter. Patient became slightly dehydrated and his diuretics were held. ECHO was performed on 04/13/19. His diuretics were resumed and adjusted accordingly. He was placed on a fluid restriction which he did not follow. 7. Anemia and chronic kidney disease. His Hemoglobin trended down slightly. Iron 43, TIBC 358. He was given 4 iron infusion. Upon discharge his Hgb sta bilized at 11.4 8. Diabetes mellitus, type 2: He was managed on basal bolus regimen 9. Benign prostatic hypertrophy (BPH) and urinary retention: The patient has indwelling Chaidez catheter. Was maintained on his finasteride 5 mg. Tamsulosin was initially increased to 0.4 twice daily, then held temporarily d/t hypotension. Tamsulosin was resumed day prior to discharge DISCHARGE MEDICATIONS: Please see below. ALLERGIES: Please see below. PHYSICAL EXAMINATION ON DISCHARGE: VITAL SIGNS: Please see below. GENERAL: AOx3 HEENT: unremarkable NECK: no JVD, supple CARDIOVASCULAR EXAMINATION: Irregular, rate controlled RESPIRATORY EXAMINATION: Diminished with faint rhonchi ABDOMINAL EXAMINATION: soft, non-tender, non-distended EXTREMITIES: no edema SKIN: warm, dry LABORATORY DATA: Please see below. IMAGING: Chest CT 04/11/19: Impression: 1. Chronic COPD/emphysematous changes with scattered fibrosis and scarring. Superimposed lingular and lower lobe consolidations consistent with elements of atelectasis and pneumonia. Follow-up to resolution recommended. 2. Previously identified ill-defined spiculated opacities in the right upper lobe have resolved. Chest X-ray 04/15/19: Impression: Current examination demonstrates predominantly chronic appearing pleuroparenchymal changes and the recently noted bilateral infiltrates and pulmonary vascular congestion has considerably improved / nearly resolved. ACTIVITY: As tolerated DIET: Low Na+, 2 gm diet, fluid restriction 1500cc DISCHARGE PLAN: To [facility] DISCHARGE INSTRUCTIONS: 1. F/U with Dr. Bryan upon return DISCHARGE CONDITION: Stable Vital Signs/I&Os Vital Signs Date Time Temp Pulse Resp B/P (MAP) Pulse Ox O2 Delivery O2 Flow Rate FiO2 04/20/19 10:13 86 04/20/19 08:16 124/59 04/20/19 08:00 2.0 04/20/19 06:00 97.2 18 93 04/19/19 10:35 Nasal Cannula I&O- Last 24 Hours up to 6 AM 04/20/19 06:00 Intake Total 1520 ml Output Total 2775 ml Balance -1255 ml Laboratory Data Labs 24H Laboratory Tests 2 04/19/19 11:39: Bedside Glucose (Misc Panel) 190H 04/19/19 16:57: Bedside Glucose (Misc Panel) 461H 04/19/19 17:00: Bedside Glucose (Misc Panel) 469H 04/19/19 20:13: Bedside Glucose (Misc Panel) 324H 04/20/19 05:26: Immature Granulocyte % (Auto) 2.4, White Blood Count 16.7H, Red Blood Count 3.94L, Hemoglobin 10.3L, Hematocrit 33.1L, Mean Corpuscular Volume 84.0, Mean Corpuscular Hemoglobin 26.1L, Mean Corpuscular Hemoglobin Concent 31.1L, Red Cell Distribution Width 18.6H, Platelet Count 357, Neutrophils (%) (Auto) 86.3H, Lymphocytes (%) (Auto) 6.0L, Monocytes (%) (Auto) 5.0, Eosinophils (%) (Auto) 0.2, Basophils (%) (Auto) 0.1, Neutrophils # (Auto) 14.4H, Lymphocytes # (Auto) 1.0L, Monocytes # (Auto) 0.8, Eosinophils # (Auto) 0.0, Basophils # (Auto) 0.0, Nucleated Red Blood Cells % (auto) 0.0 04/20/19 06:15: Bedside Glucose (Misc Panel) 165H CBC/BMP Laboratory Tests 04/20/19 05:26 Red Blood Count 3.94 L, Mean Corpuscular Volume 84.0, Mean Corpuscular Hemoglobin 26.1 L, Mean Corpuscular Hemoglobin Concent 31.1 L, Red Cell Distribution Width 18.6 H, Neutrophils (%) (Auto) 86.3 H, Lymphocytes (%) (Auto) 6.0 L, Monocytes (%) (Auto) 5.0, Eosinophils (%) (Auto) 0.2, Basophils (%) (Auto) 0.1, Neutrophils # (Auto) 14.4 H, Lymphocytes # (Auto) 1.0 L, Monocytes # (Auto) 0.8, Eosinophils # (Auto) 0.0, Basophils # (Auto) 0.0 FSBS Laboratory Tests Test 04/19/19 11:39 04/19/19 16:57 04/19/19 17:00 04/19/19 20:13 Range/Units Bedside Glucose (Misc Panel) 190 461 469 324 83-110 MG/DL Test 04/20/19 06:15 Range/Units Bedside Glucose (Misc Panel) 165 83-110 MG/DL Microbiology Microbiology 04/14/19 MRSA Screen - Final, Complete 04/14/19 Gram Stain - Final, Complete 04/14/19 Sputum Culture - Final, Complete 04/11/19 Respiratory Virus Panel (PCR) ([facility]) - Final, Complete Discharge Medications Scheduled Acetaminophen (Acetaminophen) 500 Mg Tablet, 1,000 MG PO QHS, (Reported) Alprazolam (Xanax) 0.25 Mg Tab, 0.25 MG PO BID, (Reported) Apixaban (Eliquis) 5 Mg Tab, 5 MG PO BID, (Reported) Aspirin (Aspirin) 81 Mg Tab.chew, 81 MG PO DAILY, (Reported) Bisoprolol Fumarate (Bisoprolol Fumarate) 5 Mg Tab, 5 MG PO DAILY, (Reported) TAKES AT NOON Docusate Sodium (Docusate Sodium) 100 Mg Cap, 100 MG PO BID, (Reported) Fenofibrate (Fenofibrate) 160 Mg Tab, 160 MG PO DAILY, (Reported) TAKES AT NOON Ferrous Sulfate (Ferrous Sulfate) 325 Mg Tab, 325 MG PO DAILY, (Reported) Finasteride (Proscar) 5 Mg Tab, 5 MG PO DAILY, (Reported) TAKES AT NOON Furosemide (Furosemide) 40 Mg Tablet, 40 MG PO DAILY, (Reported) Insulin Detemir (Levemir Flextouch) 100 Unit/1 Ml Insuln.pen, 42 UNIT SC QHS, (Reported) Insulin Human Lispro (Humalog) 1 Units/0.01 Ml Inj, 8 UNITS SC DAILY, (Reported) @ NOON Ipratropium/Albuterol Sulfate (Iprat-Albut 0.5-3(2.5) mg/3 ml) 3 Ml Ampul.neb, 1 SUDHIR INH Q4H, (Reported) L.acidoph/L.bulg/B.bif/S.therm (Tammy-Bid Caplet) 1 Tab Tab, 2 TAB PO DAILY, (Reported) Latanoprost (Xalatan) 0.005 % Sudhir, 1 DROP OU QHS, (Reported) Lisinopril (Lisinopril) 10 Mg Tab, 10 MG PO BID, (Reported) TAKES NOON AND BEDTIME Multivitamin (Multivitamins) 1 Each Capsule, 1 CAP PO DAILY, (Reported) [place]-3 Fatty Acids/Fish Oil (Fish Oil 1,000 mg Capsule) 1,000 Mg Cap, 1,000 MG PO BID, (Reported) Omeprazole (Omeprazole) 20 Mg Cap, 20 MG PO DAILY, (Reported) Potassium Chloride (Klor-Con M10) 10 Meq Tabcr, 40 MEQ PO DAILY Prednisone (Prednisone) 10 Mg Tablet, 30 MG PO DAILY Taper dose 20mg q day for 5 days, 10mg q day for 5 days, 5 mg q day for 5 days Salmeterol/Fluticasone (Advair 500-50 Diskus) 28 Puff/Inhaler Aerp, 1 PUFF INH BID, (Reported) Sertraline Hcl (Zoloft) 50 Mg Tab, 50 MG PO DAILY, (Reported) Tamsulosin HCl (Flomax) 0.4 Mg Cap, 0.4 MG PO QHS, (Reported) Trazodone HCl (Trazodone HCl) 100 Mg Tab, 100 MG PO QHS, (Reported) Umeclidinium [place] (Incruse Ellipta) 62.5 Mcg/Inh Inh, 1 PUFF INH DAILY, (Reported) Vancomycin HCl (Firvanq) 50 Mg/1 Ml Soln.recon, 125 MG PO Q6H Scheduled PRN Acetaminophen (Acetaminophen) 325 Mg Tablet, 650 MG PO Q4H PRN for PAIN / FEVER, (Reported) Acetaminophen (Acetaminophen) 650 Mg Supp.rect, 650 MG SC Q4H PRN for PAIN / FEVER, (Reported) Alprazolam (Alprazolam) 0.25 Mg Tablet, 0.25 MG PO Q8H PRN for ANXIETY, (Reported) Bisacodyl (Dulcolax) 10 Mg Supp.rect, 10 MG SC DAILY PRN for CONSTIPATION, (Reported) Guaifenesin (Mucinex) 600 Mg Tab, 600 MG PO Q12H PRN for CONGESTION, (Reported) Ipratropium/Albuterol Sulfate (Combivent Respimat 20-100 Mcg) 1 Aer Aer, 1 PUFF INH QID PRN for SHORTNESS OF BREATH, (Reported) Milk Of Magnesia (Milk of Magnesia) 2,400 Mg/10 Ml Oral.susp, 30 ML PO DAILY PRN for CONSTIPATION, (Reported) Ondansetron HCl (Zofran) 4 Mg Tablet, 4 MG PO Q6H PRN for NAUSEA, (Reported) Polyvinyl Alcohol (Artificial Tears) 1.4 % Sudhir, 1 DROP OU QID PRN for DRY EYES, (Reported) Sodium Phosphate,[place]-Dibasic (Enema Ready To Use) 133 Ml Enema, 1 ALBERTO SC DAILY PRN for CONSTIPATION, (Reported) Tramadol HCl (Tramadol HCl) 50 Mg Tablet, 50 MG PO Q8H PRN for BREAKTHROUGH PAIN, (Reported) Allergies Coded Allergies: Sulfa (Sulfonamide Antibiotics) (Verified Allergy, Intermediate, RASH, 04/09/19) CRISTIN DAWNP Apr 20, 2019 10:56
== END 2019-04-20 12:25 | DRG 291 ==
LOC: M ED 13:51 → EDBD 13:51 → M ED INP 17:21 → M PCU 23:41 → M MS5PR 04-15 14:30
PROVIDERS: ADMIT Family Medicine; ATTEND Family Medicine
DX: I13.0 Hypertensive heart and chronic kidney disease with heart failure and stage 1 through stage 4 chronic kidney disease, or unspecified chronic kidney disease (principal); I50.33 Acute on chronic diastolic (congestive) heart failure; J18.9 Pneumonia, unspecified organism; J96.01 Acute respiratory failure with hypoxia; E87.1 Hypo-osmolality and hyponatremia; J44.0 Chronic obstructive pulmonary disease with (acute) lower respiratory infection; J44.1 Chronic obstructive pulmonary disease with (acute) exacerbation; N17.9 Acute kidney failure, unspecified; D63.1 Anemia in chronic kidney disease; E11.40 Type 2 diabetes mellitus with diabetic neuropathy, unspecified; E87.5 Hyperkalemia; N40.0 Benign prostatic hyperplasia without lower urinary tract symptoms; Z79.82 Long term (current) use of aspirin; Z79.899 Other long term (current) drug therapy; Z88.2 Allergy status to sulfonamides; I25.10 Atherosclerotic heart disease of native coronary artery without angina pectoris; F03.90 Unspecified dementia, unspecified severity, without behavioral disturbance, psychotic disturbance, mood disturbance, and anxiety; F41.1 Generalized anxiety disorder; G47.00 Insomnia, unspecified; Z79.4 Long term (current) use of insulin; I48.2 Chronic atrial fibrillation; I34.0 Nonrheumatic mitral (valve) insufficiency; I48.0 Paroxysmal atrial fibrillation; Z66 Do not resuscitate; K59.00 Constipation, unspecified; Z99.81 Dependence on supplemental oxygen; E11.319 Type 2 diabetes mellitus with unspecified diabetic retinopathy without macular edema; Z95.1 Presence of aortocoronary bypass graft; Z79.01 Long term (current) use of anticoagulants; E86.0 Dehydration

== ENCOUNTER → 2019-04-09 | Outpatient (REF) | payer MEDICARE ==
[~2019-04-09] MED LIST changes: +ACET-683 PO; +ACET65SU PR; +ALPR0.25 PO; +ASPI81CH48 PO; +DULC10SU2 PR; +ENEMENE22 PR; +MULTCAP PO; +TRAM50TA2 PO; +ZOFR4TAB16 PO
--- NOTE | 2019-04-09 11:55 | REP ---
Clinical: Chest pain. Technique: AP semiupright. Comparison: 12/30/2018. Findings: Cardiomegaly is appreciated with diffuse chronic interstitial changes. Superimposed pulmonary vascular congestion/interstitial edema and lower lobe infiltrates (left greater than right) appreciated. No obvious effusion. No pneumothorax. Skeletal structures stable. Impression: Evidence for pulmonary vascular congestion/interstitial edema as well as bilateral lower lobe infiltrates (left greater than right). Electronically Signed by Roni Patel MD 04/09/2019 11:46 A
== END ==
LOC: M RAD 11:16
PROVIDERS: ATTEND Family Medicine
DX: I51.7 Cardiomegaly (principal); R91.8 Other nonspecific abnormal finding of lung field; R07.9 Chest pain, unspecified

== ENCOUNTER → 2019-04-26 | Outpatient (REF) | payer MEDICARE ==
[~2019-04-26] MED LIST changes: +ACET-683 PO; +ACET65SU PR; +ALPR0.25 PO; +ASPI81CH48 PO; +DULC10SU2 PR; +ENEMENE22 PR; +MULTCAP PO; +TRAM50TA2 PO; +ZOFR4TAB16 PO
[2019-04-26 15:08] LABS: HEMATOCRIT 34.1 % (42.0-52.0); HEMOGLOBIN 10.8 g/dl (13.5-17.5); MEAN CORPUSCULAR HEMOGLOBIN 27.9 pg (27.0-33.0); MEAN CORPUSCULAR HGB CONC 31.7 g/dl (32.0-36.5); MEAN CORPUSCULAR VOLUME 88.1 fl (80.0-96.0); PLATELET COUNT, AUTOMATED 397 10^3/uL (150-450); RED BLOOD COUNT 3.87 10^6/uL (4.30-6.10); WHITE BLOOD COUNT 15.8 10^3/uL (4.0-10.0)
[2019-04-26 15:25] LABS: CALCIUM LEVEL 8.7 MG/DL (8.8-10.2); CREATININE FOR GFR 1.48 MG/DL (0.70-1.30); GLOMERULAR FILTRATION RATE 49.2 (>42); POTASSIUM SERUM 5.7 MEQ/L (3.5-5.1)
== END ==
LOC: SKLAB5 13:46
PROVIDERS: ATTEND Family Medicine
DX: I50.9 Heart failure, unspecified (principal); R91.8 Other nonspecific abnormal finding of lung field; E87.5 Hyperkalemia; R06.02 Shortness of breath

== ENCOUNTER → 2019-04-26 | Outpatient (REF) | payer MEDICARE ==
--- NOTE | 2019-04-26 18:35 | REP ---
PORTABLE CHEST: AP portable view of the chest is performed and compared to multiple prior exams, most recently 04/15/2019. There are stable infiltrates in the left lower lung zones superimposed on chronic pleural and parenchymal fibrosis. There is continued improvement of infiltrates in the right lung base with possibly some minimal residual. There are also underlying fibrotic changes on the right. The heart and mediastinum are unchanged in appearance with calcification of the thoracic aorta, and heart not significantly enlarged. Multiple sternal wires and mediastinal clips are present. IMPRESSION: Underlying chronic fibrotic changes and left pleural thickening. Continued improvement of infiltrates in the right lower lung zone with possibly some minimal residual. There are stable residual patchy infiltrates in the left lung base. Electronically Signed by Zachary Torres MD 04/26/2019 08:19 P
== END ==
LOC: SKLAB5 15:54 → M RAD 15:54
PROVIDERS: ATTEND Family Medicine
DX: R91.8 Other nonspecific abnormal finding of lung field (principal); E87.5 Hyperkalemia; R06.02 Shortness of breath

== ENCOUNTER → 2019-04-27 | Outpatient (REF) | payer MEDICARE ==
[2019-04-27 09:23] LABS: CALCIUM LEVEL 8.5 MG/DL (8.8-10.2); CREATININE FOR GFR 1.47 MG/DL (0.70-1.30); GLOMERULAR FILTRATION RATE 49.6 (>42); POTASSIUM SERUM 4.3 MEQ/L (3.5-5.1)
== END ==
LOC: SKLAB5 07:24
PROVIDERS: ATTEND Family Medicine
DX: R06.00 Dyspnea, unspecified (principal); I50.9 Heart failure, unspecified

== ENCOUNTER → 2019-05-03 | Outpatient (REF) | payer MEDICARE ==
[2019-05-03 20:40] LABS: CALCIUM LEVEL 8.6 MG/DL (8.8-10.2); CREATININE FOR GFR 2.08 MG/DL (0.70-1.30); GLOMERULAR FILTRATION RATE 33.2 (>42); POTASSIUM SERUM 4.8 MEQ/L (3.5-5.1)
== END ==
LOC: SKLAB5 19:31
PROVIDERS: ATTEND Family Medicine
DX: R73.01 Impaired fasting glucose (principal)

== ENCOUNTER 2019-05-04 06:30 | Emergency (ER) | payer MEDICARE ==
[~2019-05-04] VITALS: Ht 170.2 cm; Wt 72.6 kg
[2019-05-04 07:09] LABS: BASO % 0.1 % (0.0-1.0); EOS # 0.2 10^3/uL (0.0-0.50); EOS % 1.6 % (0.0-3.0); HEMATOCRIT 33.3 % (42.0-52.0); HEMOGLOBIN 10.5 g/dl (13.5-17.5); LYMPH # 1.3 10^3/uL (1.5-4.5); LYMPH % 11.9 % (24.0-44.0); MEAN CORPUSCULAR HEMOGLOBIN 27.2 pg (27.0-33.0); MEAN CORPUSCULAR HGB CONC 31.5 g/dl (32.0-36.5); MEAN CORPUSCULAR VOLUME 86.3 fl (80.0-96.0); MONO # 0.7 10^3/uL (0.0-0.8); MONO % 6.3 % (0.0-5.0); NEUTROPHILS # 8.7 10^3/uL (1.8-7.7); PLATELET COUNT, AUTOMATED 250 10^3/uL (150-450); RED BLOOD COUNT 3.86 10^6/uL (4.30-6.10); WHITE BLOOD COUNT 11.2 10^3/uL (4.0-10.0)
[2019-05-04 07:20] LABS: INR 1.28; PARTIAL THROMBOPLASTIN TIME 32.1 SECONDS (25.4-37.6); PROTHROMBIN TIME 16.2 SECONDS (12.1-14.4)
[2019-05-04] MEDS ORDERED: ACETAMINOPHEN 325 MG TAB PO ONE (07:30)
[2019-05-04 07:32] LABS: BLOOD UREA NITROGEN 66 MG/DL (7-18); CALCIUM LEVEL 8.7 MG/DL (8.8-10.2); CARBON DIOXIDE LEVEL 29 MEQ/L (21-32); CHLORIDE LEVEL 98 MEQ/L (98-107); CK-MB VALUE MASS 2.2 NG/ML (<3.6); CPK CREATINE PHOSPHOKINASE 50 U/L (39-308); CREATININE FOR GFR 1.68 MG/DL (0.70-1.30); GLOMERULAR FILTRATION RATE 42.5 (>42); GLUCOSE, FASTING 127 MG/DL (70-100); POTASSIUM SERUM 4.2 MEQ/L (3.5-5.1); SODIUM LEVEL 134 MEQ/L (136-145); TROPONIN I < 0.02 NG/ML (< 0.10)
--- NOTE | 2019-05-04 07:34 | REPVR ---
EXAM: CT Head Without Contrast EXAM DATE/TIME: 05/04/19 (6:32am) CLINICAL HISTORY: 74 year old male with recent fall. Injury or trauma. TECHNIQUE: Imaging protocol: Axial computed tomography images of the head without contrast. Radiation optimization: All CT scans at this facility use at least one of these dose optimization techniques: automated exposure control; mA and/or kV adjustment per patient size (includes targeted exams where dose is matched to clinical indication); or iterative reconstruction. COMPARISON: No relevant prior studies available FINDINGS: Brain: No acute hemorrhage. No cerebral edema. Age-appropriate atrophic changes are noted. Periventricular and subcortical areas of low attenuation, compatible with small vessel microischemic changes. Ventricles: Probable compensatory dilatation of the ventricles, secondary to central atrophy. In the appropriate clinical setting, a component of communicating hydrocephalus or NPH cannot be excluded. Bones/joints: Unremarkable. No acute fracture. Sinuses: Visualized sinuses are unremarkable. No fluid levels. Mastoid air cells: Visualized mastoid air cells are well aerated. No mastoid effusion. Soft tissues: Unremarkable. IMPRESSION: No acute intracranial pathology is appreciated. Chronic atrophic and microischemic changes are noted. Electronically signed by: Erika Lang On 05/04/2019 07:34:33 AM
--- NOTE | 2019-05-04 07:37 | REPVR ---
EXAM: CT Cervical Spine Without Contrast EXAM DATE/TIME: 05/04/19 (6:45am) CLINICAL HISTORY: 74 year old male. Recent fall. Initial encounter. Concussion / head injury TECHNIQUE: Imaging protocol: Axial computed tomography images of the cervical spine without contrast. Coronal and sagittal reformatted images were created and reviewed. Radiation optimization: All CT scans at this facility use at least one of these dose optimization techniques: automated exposure control; mA and/or kV adjustment per patient size (includes targeted exams where dose is matched to clinical indication); or iterative reconstruction. COMPARISON: No relevant prior studies available FINDINGS: Vertebrae: No acute fracture. Normal alignment. Discs/Spinal canal: Moderate multilevel degenerative changes. Significant disc space narrowing at the C5-C6 and C6-C7 levels. Bilateral facet arthropathy changes. Soft tissues: Unremarkable. Lungs: Lung apices are normal. IMPRESSION: No acute findings. Multilevel degenerative changes. Electronically signed by: Erika Lang On 05/04/2019 07:37:30 AM
--- NOTE | 2019-05-04 07:59 | REP ---
Left humerus: Two views. History: Trauma. Findings: Two views of the left humerus demonstrate a comminuted fracture of the left humeral diaphysis. At mid shaft, there is an obliquely oriented slightly comminuted fracture with 2.1 cm of medial displacement and slight override. In the upper humerus there is another obliquely oriented fracture just below the surgical neck which is nondisplaced. There are small wafer thin comminuted fragments adjacent to the greater tuberosity. No scapular fracture is appreciated. There is narrowing of the subacromial space consistent with with degeneration of the rotator cuff. There is advanced diffuse osteoporosis. Impression: Comminuted proximal and midshaft diaphyseal fractures of the left humerus. Advanced diffuse osteoporosis. Electronically Signed by Ervin Lucio MD 05/04/2019 07:50 A
--- NOTE | 2019-05-04 09:50 | REP ---
CT LEFT SHOULDER. CT left shoulder performed in the axial plane. Sagittal and coronal reconstruction images are performed. There is an acute extensive comminuted fracture of the proximal humerus. Nondisplaced fractures are seen in the region of the neck of the humerus extending distally and involving the proximal shaft of the humerus. There is a displaced component at the mid shaft level with medial displacement angulation. There is a smoothly marginated osseous structure at the acromion, which is separate from the rest of the scapula. This has the appearance of an old fracture or unfused ossicle. There is mild spurring at the acromioclavicular joint. There is no fracture of the clavicle or scapula. There is narrowing, spurring and subchondral sclerosis at the glenohumeral joint. There is an ill-defined hematoma in the soft tissues surrounding the proximal humerus. Mild scattered linear bursal calcifications in the soft tissues surrounding the humeral head. Electronically Signed by Zachary Torres MD 05/04/2019 03:12 P
[2019-05-04 09:54] VITALS: BP 99/55
--- NOTE | 2019-05-04 09:54 | REP ---
CT LEFT HUMERUS: Axial CT imaging left humerus performed with sagittal and coronal reconstruction images. Extensive comminuted fracture is seen in the proximal half of the humerus. There is a nondisplaced comminuted fracture of the neck of the humerus, which extends distally to the mid aspect of the shaft of the humerus. At this location, there is a mildly comminuted displaced fracture which is displaced and angulated medially. The more distal humerus is intact. There is no dislocation at the shoulder joint or elbow. An unfused ossicle or old fracture is seen of the acromion. There is no fracture of the adjacent left clavicle or scapula. There is decreased space between the acromion and humeral head suggesting a tear of the supraspinatus tendon. There are mild linear calcifications in the soft tissues surrounding the humerus, which have the appearance of bursal calcifications. There is mild ill-defined hematoma in the soft tissues surrounding the proximal humerus. Electronically Signed by Zachary Torres MD 05/04/2019 03:12 P
--- NOTE | 2019-05-04 19:29 | ECGEPIP ---
[facility] - ED Test Date: 2019-05-04 Pat Name: FATMATA GIL Department: Room: - Gender: Male [employer]: : 1945 Requested By: REESE Mehta Order Number: [id number] Reading MD: Jolly Simpson Measurements Intervals [place] Rate: 77 P: [place]: -1 QRS: 30 QRSD: 90 T: 37 QT: 366 QTc: 415 Interpretive Statements ATRIAL FIBRILLATION WITH ABERRANT CONDUCTION OR VENTRICULAR PREMATURE COMPLEXES ABNORMAL RHYTHM ECG POSSIBLE PRIOR INFERIOR INFARCT T WAVE ABNORMALITY 04/09/19 IMPROVED Electronically Signed on 05-04-2019 19:29:33 EDT by Jolly Simpson
== END 2019-05-04 10:07 | disposition home or self-care (01) ==
LOC: M ED 06:30
DX: S42.292A Other displaced fracture of upper end of left humerus, initial encounter for closed fracture (principal); S00.81XA Abrasion of other part of head, initial encounter; W18.39XA Other fall on same level, initial encounter; Y92.128 Other place in nursing home as the place of occurrence of the external cause; I12.9 Hypertensive chronic kidney disease with stage 1 through stage 4 chronic kidney disease, or unspecified chronic kidney disease; E11.9 Type 2 diabetes mellitus without complications; N18.9 Chronic kidney disease, unspecified; J44.9 Chronic obstructive pulmonary disease, unspecified; I50.9 Heart failure, unspecified; F03.90 Unspecified dementia, unspecified severity, without behavioral disturbance, psychotic disturbance, mood disturbance, and anxiety; I48.91 Unspecified atrial fibrillation; D64.9 Anemia, unspecified

== ENCOUNTER → 2019-05-04 | Outpatient (REF) | payer MEDICARE | LOC: SKLAB5 07:11 | PROVIDERS: ATTEND Family Medicine | DX: R73.9 Hyperglycemia, unspecified (principal) ==

== ENCOUNTER → 2019-05-05 | Outpatient (REF) | payer MEDICARE ==
[2019-05-05 07:42] LABS: APPEARANCE, URINE HAZY (CLEAR); BACTERIA, URINE AUTO NEGATIVE (NEGATIVE); BILIRUBIN, URINE AUTO NEGATIVE (NEGATIVE); BLOOD, URINE BLOOD 3+ (NEGATIVE); COLOR, URINE YELLOW (YELLOW); GLUCOSE, URINE (UA) AUTO NEGATIVE (NEGATIVE); KETONE, URINE AUTO NEGATIVE (NEGATIVE); LEUKOCYTE ESTERASE, URINE AUTO NEGATIVE (NEGATIVE); MUCUS, URINE SMALL (NEGATIVE); NITRITE, URINE AUTO NEGATIVE (NEGATIVE); PROTEIN, URINE AUTO NEGATIVE (NEGATIVE); RBC, URINE AUTO 112 /HPF (0-3); SPECIFIC GRAVITY URINE AUTO 1.016 (1.002-1.035); SQUAMOUS EPITHELIAL CELL UR AU 0 /HPF (0-6); UROBILINOGEN, URINE AUTO 0.2 mg/dL (0.0-2.0); WBC, URINE AUTO 4 /HPF (0-3)
== END ==
LOC: SKLAB5 07:10
PROVIDERS: ATTEND Family Medicine
DX: R30.0 Dysuria (principal)

== ENCOUNTER → 2019-05-07 | Outpatient (REF) | payer MEDICARE ==
--- NOTE | 2019-05-07 12:30 | REP ---
Portable left shoulder single frontal view: Comparison is the left humerus 05/04/2019. Fractures in the surgical neck of the humerus and mid shaft of the humerus are again identified, not significantly changed. There is diffuse demineralization, unchanged. Electronically Signed by Zachary Nguyen MD 05/07/2019 12:22 P
--- NOTE | 2019-05-07 12:31 | REP ---
Portable left humerus two views: Comparison is 05/04/2019. The fracture in the surgical neck of the humerus is unchanged. The fracture at the midshaft of the humerus, unchanged. Demineralization is again identified. Electronically Signed by Zachary Nguyen MD 05/07/2019 12:23 P
--- NOTE | 2019-05-07 12:32 | REP ---
Portable left elbow two views: No gross elbow evidence of fracture or dislocation is identified on these two nonstandard portable views. The inferior tip of the humeral shaft fracture is identified at the film margin of the two views. Electronically Signed by Zachary Nguyen MD 05/07/2019 12:24 P
--- NOTE | 2019-05-07 12:33 | REP ---
Left wrist, portable study, two views: There are no comparisons. No fracture or dislocation is identified on these to portable nonstandard views. There are no calcifications or foreign bodies. Electronically Signed by Zachary Nguyen MD 05/07/2019 12:25 P
[2019-05-07 12:34] LABS: HEMOGLOBIN 8.5 g/dl (13.5-17.5); MEAN CORPUSCULAR HEMOGLOBIN 28.6 pg (27.0-33.0); MEAN CORPUSCULAR HGB CONC 32.7 g/dl (32.0-36.5); MEAN CORPUSCULAR VOLUME 87.5 fl (80.0-96.0); PLATELET COUNT, AUTOMATED 213 10^3/uL (150-450); RED BLOOD COUNT 2.97 10^6/uL (4.30-6.10); WHITE BLOOD COUNT 13.9 10^3/uL (4.0-10.0)
[2019-05-07 13:10] LABS: CALCIUM LEVEL 8.3 MG/DL (8.8-10.2); CREATININE FOR GFR 2.1 MG/DL (0.70-1.30); GLOMERULAR FILTRATION RATE 32.9 (>42); POTASSIUM SERUM 6.2 MEQ/L (3.5-5.1)
[2019-05-07 16:40] LABS: OSMOLALITY URINE 336 MOSM/KG (500-800)
[2019-05-07 16:58] LABS: SODIUM,RANDOM URINE 50 MEQ/L
== END ==
LOC: SKLAB5 11:11
PROVIDERS: ATTEND Family Medicine
DX: S42.3 Fracture of shaft of humerus (principal); S42.212S Unspecified displaced fracture of surgical neck of left humerus, sequela; W19.XXXS Unspecified fall, sequela; Y92.89 Other specified places as the place of occurrence of the external cause; Y93.89 Activity, other specified; Y99.8 Other external cause status

== ENCOUNTER → 2019-05-08 | Outpatient (REF) | payer MEDICARE ==
[2019-05-08 09:39] LABS: ALBUMIN 2.5 GM/DL (3.2-5.2); BILIRUBIN,TOTAL 0.5 MG/DL (0.2-1.0); CALCIUM LEVEL 7.7 MG/DL (8.8-10.2); CREATININE FOR GFR 2.59 MG/DL (0.70-1.30); GLOMERULAR FILTRATION RATE 25.8 (>42); TOTAL PROTEIN 5.7 GM/DL (6.4-8.2)
[2019-05-08 13:52] LABS: HEMOGLOBIN 8.2 g/dl (13.5-17.5); MEAN CORPUSCULAR HEMOGLOBIN 27.4 pg (27.0-33.0); MEAN CORPUSCULAR HGB CONC 31.5 g/dl (32.0-36.5); PLATELET COUNT, AUTOMATED 250 10^3/uL (150-450); RED BLOOD COUNT 2.99 10^6/uL (4.30-6.10); WHITE BLOOD COUNT 14.2 10^3/uL (4.0-10.0)
[2019-05-08 15:54] LABS: BASO % 0.1 % (0.0-1.0); LYMPH # 0.5 10^3/uL (1.5-4.5); LYMPH % 3.6 % (24.0-44.0); MONO # 0.5 10^3/uL (0.0-0.8); MONO % 3.3 % (0.0-5.0); NEUTROPHILS # 12.6 10^3/uL (1.8-7.7); NEUTROPHILS % 91.8 % (36.0-66.0)
[2019-05-08 17:00] LABS: APPEARANCE, URINE CLOUDY (CLEAR); BACTERIA, URINE AUTO 2+ (NEGATIVE); BILIRUBIN, URINE AUTO NEGATIVE (NEGATIVE); BLOOD, URINE BLOOD 3+ (NEGATIVE); COLOR, URINE AMBER (YELLOW); GLUCOSE, URINE (UA) AUTO NEGATIVE (NEGATIVE); KETONE, URINE AUTO NEGATIVE (NEGATIVE); LEUKOCYTE ESTERASE, URINE AUTO 3+ (NEGATIVE); NITRITE, URINE AUTO NEGATIVE (NEGATIVE); PROTEIN, URINE AUTO 2+ mg/dL (NEGATIVE); RBC, URINE AUTO TNTC /HPF (0-3); SPECIFIC GRAVITY URINE AUTO 1.016 (1.002-1.035); SQUAMOUS EPITHELIAL CELL UR AU 0 /HPF (0-6); UROBILINOGEN, URINE AUTO 0.2 mg/dL (0.0-2.0); WBC, URINE AUTO TNTC /HPF (0-3)
== END ==
LOC: SKLAB5 07:54 → M LAB 07:54
PROVIDERS: ATTEND Family Medicine
DX: I50.9 Heart failure, unspecified (principal); J44.9 Chronic obstructive pulmonary disease, unspecified; E11.9 Type 2 diabetes mellitus without complications; R31.9 Hematuria, unspecified; R30.0 Dysuria; N18.6 End stage renal disease

== ENCOUNTER → 2019-05-09 | Outpatient (REF) | payer MEDICARE ==
[2019-05-09 14:24] LABS: BASO % 0.2 % (0.0-1.0); EOS % 0.2 % (0.0-3.0); HEMATOCRIT 24.5 % (42.0-52.0); HEMOGLOBIN 7.9 g/dl (13.5-17.5); LYMPH # 0.4 10^3/uL (1.5-4.5); LYMPH % 2.8 % (24.0-44.0); MEAN CORPUSCULAR HEMOGLOBIN 28.4 pg (27.0-33.0); MEAN CORPUSCULAR HGB CONC 32.2 g/dl (32.0-36.5); MEAN CORPUSCULAR VOLUME 88.1 fl (80.0-96.0); MONO # 0.7 10^3/uL (0.0-0.8); MONO % 5.4 % (0.0-5.0); NEUTROPHILS # 11.4 10^3/uL (1.8-7.7); NEUTROPHILS % 89.7 % (36.0-66.0); PLATELET COUNT, AUTOMATED 246 10^3/uL (150-450); RED BLOOD COUNT 2.78 10^6/uL (4.30-6.10); WHITE BLOOD COUNT 12.7 10^3/uL (4.0-10.0)
[2019-05-09 14:37] LABS: INR 1.3; PROTHROMBIN TIME 15.9 SECONDS (11.8-14.0)
[2019-05-09 14:38] LABS: PARTIAL THROMBOPLASTIN TIME 33.2 SECONDS (25.0-38.4)
[2019-05-09 14:55] LABS: ALBUMIN 2.6 GM/DL (3.2-5.2); BILIRUBIN,TOTAL 0.5 MG/DL (0.2-1.0); C REACTIVE PROTEIN QUANTITATIV 8.35 MG/DL (0.00-0.30); CREATININE FOR GFR 2.69 MG/DL (0.70-1.30); GLOMERULAR FILTRATION RATE 24.7 (>42); POTASSIUM SERUM 4.9 MEQ/L (3.5-5.1); TOTAL PROTEIN 6.1 GM/DL (6.4-8.2)
[2019-05-09 15:06] LABS: ERYTHROCYTE SEDIMENTATION RATE 85 mm/hr (0-20)
--- NOTE | 2019-05-09 15:10 | REP ---
Clinical: Increasing cough. Technique: PA and lateral. Comparison: 04/26/2019 Findings: Diffuse chronic bilateral pleuroparenchymal changes are again noted and similar to prior examination. No obvious focal consolidation, effusion, or pneumothorax. 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 Skeletal structures demonstrate age-related osteopenia and degenerative changes. Impression: Diffuse chronic bilateral pleuroparenchymal changes similar to prior examination. No obvious acute consolidation. Electronically Signed by Roni Patel MD 05/09/2019 03:02 P
== END ==
LOC: SKLAB5 13:24
PROVIDERS: ATTEND Family Medicine
DX: R05 Cough (principal); R53.83 Other fatigue; R31.0 Gross hematuria

== ENCOUNTER → 2019-05-09 | Outpatient (CLI) | payer MEDICARE ==
--- NOTE | 2019-05-09 16:47 | REP ---
Clinical: Gross hematuria. Technique: Real time dominguez scale and color evaluation using curved array transducer. Findings: The kidneys are normal in reniform shape with increased parenchymal echotexture suggesting chronic renal disease. Renal parenchymal calcifications are also appreciated likely representing renovascular calcifications although small nonobstructing intrarenal calculi cannot be excluded. No hydronephrosis. The right kidney measures 9.7 x 5.6 x 5.9 cm and includes a sub centimeter complex cyst at the lower pole. Left kidney measures 10.9 x 5.6 x 6.4 cm without cyst or mass lesion. Chaidez catheter noted in collapsed bladder. Impression: 1. Evidence to suggest medical renal disease and sub centimeter complex cyst lower pole right kidney. 2. Renovascular calcifications are appreciated and small nonobstructing intrarenal calculi cannot be excluded without evidence for hydronephrosis. Electronically Signed by Roni Patel MD 05/09/2019 04:39 P
== END ==
LOC: M RAD 14:33
PROVIDERS: ATTEND Nurse Practitioner Family
DX: R31.0 Gross hematuria (principal)

== ENCOUNTER 2019-05-10 13:10 | Emergency (ER) | payer MEDICARE ==
--- NOTE | 2019-05-10 14:34 | REP ---
Clinical: Fracture. Technique: Portable neutral view of the left humerus. Findings: There is a displaced spiral fracture involving the mid humeral shaft and a spiral fracture involving the proximal surgical neck of the humerus. Findings are essentially unchanged compared to 05/07/2019. Impression: Fractures of the humerus unchanged from prior examination. Electronically Signed by Roni Patel MD 05/10/2019 02:26 P
[2019-05-10 15:16] VITALS: BP 92/46
== END 2019-05-10 15:27 | disposition home or self-care (01) ==
LOC: M ED 13:10
DX: S42.302A Unspecified fracture of shaft of humerus, left arm, initial encounter for closed fracture (principal); X58.XXXA Exposure to other specified factors, initial encounter; Y92.89 Other specified places as the place of occurrence of the external cause; N39.0 Urinary tract infection, site not specified; E11.9 Type 2 diabetes mellitus without complications; J44.9 Chronic obstructive pulmonary disease, unspecified; N18.9 Chronic kidney disease, unspecified; I50.9 Heart failure, unspecified; I48.91 Unspecified atrial fibrillation; F03.90 Unspecified dementia, unspecified severity, without behavioral disturbance, psychotic disturbance, mood disturbance, and anxiety; D64.9 Anemia, unspecified; Z79.899 Other long term (current) drug therapy; Z79.82 Long term (current) use of aspirin; Z79.01 Long term (current) use of anticoagulants; Z88.1 Allergy status to other antibiotic agents; Z88.2 Allergy status to sulfonamides

== ENCOUNTER → 2019-05-10 | Outpatient (REF) | payer MEDICARE ==
[2019-05-10 08:49] LABS: HEMATOCRIT 24.6 % (42.0-52.0); HEMOGLOBIN 7.8 g/dl (13.5-17.5); MEAN CORPUSCULAR HEMOGLOBIN 28.6 pg (27.0-33.0); MEAN CORPUSCULAR HGB CONC 31.7 g/dl (32.0-36.5); MEAN CORPUSCULAR VOLUME 90.1 fl (80.0-96.0); PLATELET COUNT, AUTOMATED 232 10^3/uL (150-450); RED BLOOD COUNT 2.73 10^6/uL (4.30-6.10); WHITE BLOOD COUNT 10.5 10^3/uL (4.0-10.0)
[2019-05-10 09:10] LABS: CREATININE FOR GFR 2.7 MG/DL (0.70-1.30); GLOMERULAR FILTRATION RATE 24.6 (>42); POTASSIUM SERUM 4.6 MEQ/L (3.5-5.1)
== END ==
LOC: SKLAB5 07:33
PROVIDERS: ATTEND Family Medicine
DX: N39.0 Urinary tract infection, site not specified (principal)

== ENCOUNTER → 2019-05-11 | Outpatient (REF) | payer MEDICARE ==
[2019-05-11 07:25] LABS: BASO % 0.1 % (0.0-1.0); EOS % 0.1 % (0.0-3.0); HEMATOCRIT 25.7 % (42.0-52.0); HEMOGLOBIN 8.1 g/dl (13.5-17.5); LYMPH # 0.4 10^3/uL (1.5-4.5); LYMPH % 5.3 % (24.0-44.0); MEAN CORPUSCULAR HEMOGLOBIN 28.6 pg (27.0-33.0); MEAN CORPUSCULAR HGB CONC 31.5 g/dl (32.0-36.5); MEAN CORPUSCULAR VOLUME 90.8 fl (80.0-96.0); MONO # 0.6 10^3/uL (0.0-0.8); MONO % 7.3 % (0.0-5.0); NEUTROPHILS # 6.6 10^3/uL (1.8-7.7); NEUTROPHILS % 84.5 % (36.0-66.0); PLATELET COUNT, AUTOMATED 234 10^3/uL (150-450); RED BLOOD COUNT 2.83 10^6/uL (4.30-6.10); WHITE BLOOD COUNT 7.9 10^3/uL (4.0-10.0)
[2019-05-11 08:01] LABS: CALCIUM LEVEL 7.9 MG/DL (8.8-10.2); CREATININE FOR GFR 2.29 MG/DL (0.70-1.30); GLOMERULAR FILTRATION RATE 29.7 (>42); POTASSIUM SERUM 4.7 MEQ/L (3.5-5.1)
== END ==
LOC: SKLAB5 09:22
PROVIDERS: ATTEND Family Medicine
DX: I50.9 Heart failure, unspecified (principal)

== ENCOUNTER → 2019-05-13 | Outpatient (REF) | payer MEDICARE ==
[2019-05-13 07:59] LABS: CALCIUM LEVEL 8.7 MG/DL (8.8-10.2); CREATININE FOR GFR 1.81 MG/DL (0.70-1.30); POTASSIUM SERUM 4.6 MEQ/L (3.5-5.1)
== END ==
LOC: SKLAB5 08:02
PROVIDERS: ATTEND Family Medicine
DX: N18.9 Chronic kidney disease, unspecified (principal)

== ENCOUNTER → 2019-05-16 | Outpatient (REF) | payer MEDICARE ==
[2019-05-16 07:24] LABS: CALCIUM LEVEL 8.7 MG/DL (8.8-10.2); CREATININE FOR GFR 2.16 MG/DL (0.70-1.30); GLOMERULAR FILTRATION RATE 31.8 (>42); POTASSIUM SERUM 4.5 MEQ/L (3.5-5.1)
== END ==
LOC: SKLAB5 07:30
PROVIDERS: ATTEND Family Medicine
DX: N18.9 Chronic kidney disease, unspecified (principal)

== ENCOUNTER → 2019-05-17 | Outpatient (REF) | payer MEDICARE | LOC: SKLAB5 07:06 | PROVIDERS: ATTEND Family Medicine | DX: R73.01 Impaired fasting glucose (principal) ==

== ENCOUNTER → 2019-05-23 | Outpatient (REF) | payer MEDICARE ==
[~2019-05-23] MED LIST changes: -ARTI99.0 OU; +ARTIDRO2 OU; +BISO5TAB14 PO; -BISO5TAB5 PO; +OMEP1CAP73 PO; -OMEP20CA3 PO; +ONDA-83 PO; -ONDA4TAB5 PO; -TRAZ-163 PO; +TRAZ-257 PO
[2019-05-23 10:19] LABS: HEMATOCRIT 35.7 % (42.0-52.0); MEAN CORPUSCULAR HEMOGLOBIN 29.8 pg (27.0-33.0); MEAN CORPUSCULAR HGB CONC 30.8 g/dl (32.0-36.5); MEAN CORPUSCULAR VOLUME 96.7 fl (80.0-96.0); PLATELET COUNT, AUTOMATED 281 10^3/uL (150-450); RED BLOOD COUNT 3.69 10^6/uL (4.30-6.10); WHITE BLOOD COUNT 7.6 10^3/uL (4.0-10.0)
[2019-05-23 10:38] LABS: CALCIUM LEVEL 8.5 MG/DL (8.8-10.2); CREATININE FOR GFR 1.98 MG/DL (0.70-1.30); GLOMERULAR FILTRATION RATE 35.2 (>42); POTASSIUM SERUM 4.3 MEQ/L (3.5-5.1)
== END ==
LOC: SKLAB5 07:28
PROVIDERS: ATTEND Family Medicine
DX: D64.9 Anemia, unspecified (principal)